=== PATIENT | female | born 1945 | race Caucasian/White ===

== ENCOUNTER 2019-06-12 16:17 | Inpatient (IN) | payer MEDICARE, OTHER ==
--- NOTE | 2019-06-12 16:47 | ED ---
Neurological HPI - HPI Summary HPI Summary: A 74 y/o female brought in by [facility] ambulance accompanied by mother and aide presents to [facility] with a chief complaint of weakness over the past two days. She says that she fell today when trying to get up off the toilet but did not get hurt. Per aide, she was lowered to the floor and did not really fall. She denies feeling dizzy or lightheaded. She also reports nausea, abdominal pain diarrhea and a cough. Pt denies any fever, vomiting, chills, erythema of eyes, sore throat, CP, SOB, dysuria, hematuria, edema, or rash She says that she has a "pump in her stomach" for baclofen. 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 She reports smoking. The patient says that she lives at her house, but requires aides. She denies a Hx of bloodclots. Per daughter, the patient has been having back pain and is taking Tylenol. She has reportedly had difficulty walking. 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 - History of Current Complaint Chief Complaint: EDWeakness Stated Complaint: GENERAL ILLNESS PER EMS Time Seen by Provider: 06/12/19 16:34 Hx Obtained From: Patient, Family/Hotel Sales Manager Onset/Duration: Sudden Onset, Started days ago, Still Present Timing: Constant Onset Severity: Mild Current Severity: Mild Pain Intensity: 0 Pain Scale Used: 0-10 Numeric Character: Weak Aggravating: Nothing Alleviating: Nothing Associated Signs and Symptoms: Positive: Diarrhea. Negative: Dizziness, Pain, Fever, Chest Pain - Allergy/Home Medications Allergies/Adverse Reactions: Allergies Allergy/AdvReac Type Severity Reaction Status Date / Time codeine Allergy Nausea Verified 05/15/19 07:38 Home Medications: Home Medications Aspirin EC TAB* [Ecotrin EC Low Dose 81 MG*] 81 mg PO DAILY 06/12/19 [History Confirmed 06/12/19] Cyanocobalamin (Vitamin B-12) [Vitamin B12] 2,500 mcg PO DAILY 06/12/19 [ History Confirmed 06/12/19] Docusate Sodium [Stool Softener] 100 mg PO BID PRN 06/12/19 [History Confirmed 06/12/19] FLUoxetine CAP* [PROzac CAP*] 20 mg PO QAM 06/12/19 [History Confirmed 06/12/19] FLUoxetine CAP* [PROzac CAP*] 40 mg PO QPM 06/12/19 [History Confirmed 06/12/19] Losartan TAB* [Cozaar TAB*] 100 mg PO DAILY 06/12/19 [History Confirmed 06/12/19 ] amLODIPine TAB* [Norvasc 5 mg TAB*] 10 mg PO QPM 06/12/19 [History Confirmed ] guaiFENesin ER TAB [Mucinex*] 600 mg PO BID 06/12/19 [History Confirmed 06/12/19 ] PMH/Surg Hx/FS Hx/Imm Hx Cardiovascular History: Denies: Hx Auto Implanted Cardiovert Defib Respiratory History: Reports: Hx Chronic Obstructive Pulmonary Disease (COPD) GI History: Denies: Hx Gastroesophageal Reflux Disease Musculoskeletal History: Reports: Hx Arthritis, Hx Back Problems Neurological History: Denies: Hx Transient Ischemic Attacks (TIA) Infectious Disease History: No Infectious Disease History: Denies: Traveled Outside the [place] in Last 30 Days - Family History Known Family History: Positive: Other - positive: father commited suicide - Social History Alcohol Use: None Substance Use Type: Reports: None Smoking Status (MU): Heavy Every Day Tobacco Smoker Type: Cigarettes Have You Smoked in the Last Year: Yes Review of Systems Positive: Fatigue. Negative: Fever, Chills Negative: Erythema Negative: Sore Throat Negative: Chest Pain Positive: Cough. Negative: Shortness Of Breath Positive: Abdominal Pain, Diarrhea, Nausea. Negative: Vomiting Negative: dysuria, hematuria Positive: Other - positive: back pain. Negative: Edema Neurological: Negative - dizziness, lightheadedness Positive: Weakness All Other Systems Reviewed And Are Negative: Yes Physical Exam - Summary Physical Exam Summary: Constitutional: Well-developed, Well-nourished, Alert. (-) Distressed Skin: Warm, Dry HENT: Normocephalic; Atraumatic Eyes: Conjunctiva normal Neck: Musculoskeletal ROM normal neck. (-) JVD, (-) Stridor, (-) Tracheal deviation Cardio: Rhythm regular, rate normal, Heart sounds normal; Intact distal pulses; The pedal pulses are 2+ and symmetric. Radial pulses are 2+ and symmetric. (-) Murmur Pulmonary/Chest wall: Effort normal. (-) Respiratory distress, (-) Wheezes, (-) Rales Abd: Soft. (+) Suprapubic Tenderness, (-) Distension, (-) Guarding, (-) Rebound Musculoskeletal: (-) Edema Lymph: (-) Cervical adenopathy Neuro: Alert, Oriented x3, Strength normal, Cranial nerves II-XII are grossly intact. (-) Dysmetria, (-) Nystagmus, (-) Ataxia by finger to nose testing, (-) Sensory deficit. Bilateral lower extremities are globally weak. Psych: Mood and affect Normal Triage Information Reviewed: Yes Vital Signs On Initial Exam: Initial Vitals Temp Pulse Resp BP Pulse Ox 99.5 F 72 22 162/83 93 06/12/19 16:22 06/12/19 16:22 06/12/19 16:22 06/12/19 16:22 06/12/19 16:22 Vital Signs Reviewed: Yes - [place] Coma Scale Best Eye Response: 4 - Spontaneous Best Motor Response: 6 - Obeys Commands Best Verbal Response: 5 - Oriented Coma Scale Total: 15 Diagnostics - Vital Signs Vital Signs Temp Pulse Resp BP Pulse Ox 06/12/19 16:22 99.5 F 72 22 162/83 93 - Laboratory Result Diagrams: 06/12/19 16:59 06/12/19 16:59 Lab Statement: Any lab studies that have been ordered have been reviewed, and results considered in the medical decision making process. - Radiology CXR Radiology Interpretation Completed By: Radiologist Summary of Radiographic Findings: Stigmata of obstructive lung disease corresponding with provided history. No acute pulmonary or cardiac process evident. ED physician has reviewed this imaging report. - CT Brain CT Interpretation Completed By: Radiologist Summary of CT Findings: 1. NO EVIDENCE FOR ACUTE INTRACRANIAL ABNORMALITY. 2. FINDINGS SUGGESTIVE OF MILD CHRONIC SMALL VESSEL ISCHEMIC CHANGES. ED physician has reviewed this imaging report. Course/Dx - Course Course Of Treatment: A 74 y/o female brought in by [facility] ambulance accompanied by mother and aide presents to [facility] with a chief complaint of weakness over the past two days. She says that she fell today when trying to get up off the toilet but did not get hurt. Per aide, she was lowered to the floor and did not really fall. She denies feeling dizzy or lightheaded. She also reports nausea diarrhea and a cough. Pt denies any fever, vomiting, chills, erythema of eyes, sore throat, CP, SOB, abdominal pain, dysuria, hematuria, edema, or rash She says that she has a "pump in her stomach" for baclofen. 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 She reports smoking. The patient says that she lives at her house, but requires aides. She denies a Hx of bloodclots. Per daughter, the patient has been having back pain and is taking Tylenol. She has reportedly had difficulty walking. 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 The physical exam revealed suprapubic tenderness and bilateral lower extremities are globally weak. Blood work, chemistries and urines obtained. Trace urine ketones, Urine blood 1+, Urine nitrate positive, trace Ur Leukocyte Esterase, Urine RC 1+, Ur Squamous Epith Cells Present, Urine Bacteria 1+. In the ED course the patient was given Sodium Chloride IV. Brain CT impression: 1. NO EVIDENCE FOR ACUTE INTRACRANIAL ABNORMALITY. 2. FINDINGS SUGGESTIVE OF MILD CHRONIC SMALL VESSEL ISCHEMIC CHANGES. CXR impression: Stigmata of obstructive lung disease corresponding with provided history. No acute pulmonary or cardiac process evident. Discussed case with Dr. Carrera, hospitalist, who accepted the patient for admission. The patient is agreeable with this plan. - Diagnoses Provider Diagnoses: UTI (urinary tract infection), Weakness - Physician Notifications Discussed Care Of Patient With: Curt Carrera Time Discussed With Above Provider: 19:25 Instructed by Provider To: Admit As Inpatient Discharge - Sign-Out/Discharge Documenting (check all that apply): Patient Departure - admit Patient Received Moderate/Deep Sedation with Procedure: No - Discharge Plan Condition: Fair Disposition: ADMITTED TO [facility] Referrals: Cinthia Winston MD [Primary Care Provider] - - Attestation Statements Document Initiated by Scribe: Yes Documenting Scribe: Delbert Quinonez Provider For Whom Scribe is Documenting (Include Credential): Song Chandler MD Scribe Attestation: Delbert Gauthier, scribed for Song Chandler MD on 06/12/19 at 1927. Status of Scribe Document: Ready
[2019-06-12 17:18] LABS: ABS Basophils 0.1 10^3/ul (0-0.2); ABS Eosinophils 0.1 10^3/ul (0-0.6); ABS Lymphocytes 1.1 10^3/ul (1.0-4.8); ABS Monocytes 0.9 10^3/ul (0-0.8); ABS Neutrophils 10.8 10^3/ul (1.5-7.7); Hematocrit 42 % (35-47); Lymphocyte % 8.3 %; Mean Corpuscular HGB Conc 33 g/dL (31-36); Mean Corpuscular Hemoglobin 30 pg (27-31); Mean Corpuscular Volume 89 fL (80-97); Mean Platelet Volume 7.4 fL (7.4-10.4); Platelet Count 482 10^3/uL (150-450); Red Blood Count 4.69 10^6 /uL (3.70-4.87); Red Cell Distribution Width 15 % (10-15)
[2019-06-12 17:28] LABS: Activated Partial Thrombo Time 32.1 seconds (26.0-38.0); INR 1.06 (0.82-1.09)
[2019-06-12 17:32] LABS: Troponin I 0.01 ng/mL (<0.04)
[2019-06-12 17:33] LABS: Albumin/Globulin Ratio 1.1 (1-3); Calcium 9.1 mg/dL (8.6-10.3); EGFR Non-African American 64.5 (>60); Globulin 3.5 g/dL (2-4); Potassium 4.4 mmol/L (3.5-5.0); Total Bilirubin 0.6 mg/dL (0.2-1.0); Total Protein 7.5 g/dL (6.4-8.9)
[2019-06-12 18:46] LABS: Urine Appearance Cloudy; Urine Bacteria 1+ (Absent); Urine Bilirubin Negative (Negative); Urine Blood 1+ (Negative); Urine Color Yellow; Urine Glucose Negative (Negative); Urine Ketones Trace (Negative); Urine Nitrite Positive (Negative); Urine Protein Negative (Negative); Urine Red Blood Cell Trace(0-2/hpf) (Absent); Urine Squamous Epithelial Cell Present (Absent); Urine Urobilinogen Negative (Negative); Urine White Blood Cell 1+(6-10/hpf) (Absent)
[2019-06-12] MEDS ORDERED: cefTRIAXone(*) 1 GM in NS 0.9% 50 ML* 50 ML IVPB ONE (19:22)
[2019-06-12] MEDS ORDERED: NS 0.9% 1000 ML** 1,000 ML IV ONE (19:22)
--- NOTE | 2019-06-12 19:39 | HP ---
History of Present Illness - History of Present Illness Reason for Visit: Got really weak today History of Present Illness: 74yoF with Primary lateral sclerosis, Arthritis, Chronic muscle spasm with baclofen pump, she is wheelchair bound and juan jose lift but can do some combing with her hands. 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 Today she noticed she was more weaker than normal. No fever. Unsure of any urinary problem although she does use diaper. She does have chronic back spasm but today also noticed lower abdominal pain. Allergies Allergy/AdvReac Type Severity Reaction Status Date / Time codeine Allergy Nausea Verified 05/15/19 07:38 Home Medications Medication Instructions Recorded Confirmed Type Albuterol HFA INHALER* [Ventolin 2 puff INH Q6H PRN 05/15/19 06/12/19 History HFA Inhaler*] Atorvastatin* [Lipitor*] 20 mg PO QPM 05/15/19 06/12/19 History Mirabegron (NF) [Myrbetriq (NF)] 50 mg PO DAILY 05/15/19 06/12/19 History Primidone TAB(*) [Mysoline TAB(*)] 250 mg PO BID 05/15/19 06/12/19 History Salmeterol DISKUS (NF) [Serevent 1 puff INH BID 05/15/19 06/12/19 History Diskus (NF)] Tolterodine LA (NF) [Detrol LA 4 mg PO DAILY 05/15/19 06/12/19 History (NF)] Umeclidinium [place] [Incruse 62.5 mcg IH DAILY 05/15/19 06/12/19 History Ellipta] Aspirin EC TAB* [Ecotrin EC Low 81 mg PO DAILY 06/12/19 06/12/19 History Dose 81 MG*] Cyanocobalamin (Vitamin B-12) 2,500 mcg PO DAILY 06/12/19 06/12/19 History [Vitamin B12] Docusate Sodium [Stool Softener] 100 mg PO BID PRN 06/12/19 06/12/19 History FLUoxetine CAP* [PROzac CAP*] 20 mg PO QAM 06/12/19 06/12/19 History FLUoxetine CAP* [PROzac CAP*] 40 mg PO QPM 06/12/19 06/12/19 History Losartan TAB* [Cozaar TAB*] 100 mg PO DAILY 06/12/19 06/12/19 History amLODIPine TAB* [Norvasc 5 mg TAB*] 10 mg PO QPM 06/12/19 06/12/19 History guaiFENesin ER TAB [Mucinex*] 600 mg PO BID 06/12/19 06/12/19 History - Past Medical History Cardiac: HTN, Hyperlipidemia Pulmonary: COPD 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 Chronic back spasm s/p baclophen pump. Psych: Anxiety, Depression Musculoskeletal: Other - Hx Arthritis, Hx Back Problems Renal/: Other - Left Kidney Ca s/p resection. - Past Surgical History Past Surgical History: Other - Left nephrectomy, Colon Ca surgery, Baclofen pump insertion, Right side breast ca resection, lumbar discectomy, multiple skin cancer removal, History of radiation treatment for breast and skin cancers. Never really got chemotherapy. Bilateral Cataract - Past Social History Smoke: 1 pack per day - 60 Years. Occupation: Used to work at [employer] Alcohol: None Drugs: None Lives: Alone - 24 Aide service Review of Systems - Measurements Intake and Output: Intake and Output Last 24 Hours 06/10/19 06/11/19 06/12/19 06/13/19 06:59 06:59 06:59 06:59 Weight 148 lb - Review of Systems Constitutional Symptoms: Positive: Weakness, Other - Loss of appetitie Negative: Weight Gain, Weight Loss, Fever Dermatology: Negative: Rash Eyes: Negative: Change in Vision Thyroid: Positive: Normal Pulmonary: Negative: Cough, Sputum Cardiology: Negative: Chest Pain, Shortness of Breath, Palpitations, Edema Gastroenterology: Positive: Abdominal Pain - Suprapubic area Neurology: Positive: Other - Baseline functional quadraplegic Objective Active Medications: Sodium Chloride (Ns 0.9% 1000 Ml) 1,000 mls @ 1,000 mls/hr IV .PER RATE ONE Stop: 06/12/19 20:21 Last Admin: 06/12/19 19:31 Dose: 1,000 mls/hr Ceftriaxone Sodium 1 gm/ (Sodium Chloride) 50 mls @ 100 mls/hr IVPB ED ONCE ONE Stop: 06/12/19 19:51 Last Admin: 06/12/19 19:32 Dose: 100 mls/hr Vital Signs - 8 hr 06/12/19 06/12/19 06/12/19 16:22 16:36 16:49 Temperature 99.5 F Pulse Rate 72 74 72 Respiratory 22 22 23 Rate Blood Pressure 162/83 159/83 173/89 (mmHg) O2 Sat by Pulse 93 92 91 Oximetry 06/12/19 06/12/19 06/12/19 17:19 17:31 17:49 Temperature Pulse Rate 68 67 68 Respiratory 23 22 22 Rate Blood Pressure 141/79 143/78 (mmHg) O2 Sat by Pulse 93 94 93 Oximetry 06/12/19 06/12/19 06/12/19 18:01 18:19 18:49 Temperature Pulse Rate 68 71 71 Respiratory 22 25 22 Rate Blood Pressure 141/74 152/69 (mmHg) O2 Sat by Pulse 94 94 93 Oximetry 06/12/19 19:00 Temperature Pulse Rate 71 Respiratory 21 Rate Blood Pressure (mmHg) O2 Sat by Pulse 94 Oximetry Oxygen Devices in Use Now: None Eyes: No Scleral Icterus, PERRLA Ears/Nose/Mouth/Throat: NL Teeth, Lips, Gums, Clear Oropharnyx, Mucous Membranes Moist Respiratory: - - Diffuse expiratory wheezing Cardiovascular: NL Sounds; No Murmurs; No JVD, RRR, No Edema Abdominal: NL Sounds; No Tenderness; No Distention Extremities: No Edema Skin: No Rash or Ulcers Neurological: Alert and Oriented x 3, - - Functional quadraplegia Nutrition: - - Needs assistance with food Result Diagrams: 06/12/19 16:59 06/12/19 16:59 Diagnostic Imaging: CHEST AP IMPRESSION: Stigmata of obstructive lung disease corresponding with provided history. No acute pulmonary or cardiac process evident. CT BRAIN WO IMPRESSION: 1. NO EVIDENCE FOR ACUTE INTRACRANIAL ABNORMALITY. 2. FINDINGS SUGGESTIVE OF MILD CHRONIC SMALL VESSEL ISCHEMIC CHANGES. 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 - Patient Problems (1) Sepsis secondary to UTI Current Visit: Yes Status: Acute Code(s): A41.9 - SEPSIS, UNSPECIFIED ORGANISM; N39.0 - URINARY TRACT INFECTION, SITE NOT SPECIFIED SNOMED Code(s): 735988779 Comment: Start ceftriaxone follow up urine cultures and titrate anti- biotics. (2) Hyponatremia Current Visit: Yes Status: Acute Code(s): E87.1 - HYPO-OSMOLALITY AND HYPONATREMIA SNOMED Code(s): 93592619 Comment: Add on serum osmolality to the ED drawn labs. Start IVF. Repeat labs in AM. (3) COPD (chronic obstructive pulmonary disease) Current Visit: Yes Status: Acute Code(s): J44.9 - CHRONIC OBSTRUCTIVE PULMONARY DISEASE, UNSPECIFIED SNOMED Code(s): 81007469 Comment: Restart home meds. Does have some wheezes on exam but patient denies any shortness of breath. (4) Functional quadriplegia Current Visit: Yes Status: Chronic Code(s): R53.2 - FUNCTIONAL QUADRIPLEGIA SNOMED Code(s): 859681562016126 (5) Primary lateral sclerosis Current Visit: Yes Status: Chronic Code(s): G12.23 - PRIMARY LATERAL SCLEROSIS SNOMED Code(s): 12087138 (6) Chronic back pain Current Visit: Yes Status: Chronic Code(s): M54.9 - DORSALGIA, UNSPECIFIED; G89.29 - OTHER CHRONIC PAIN SNOMED Code(s): 829102201 Comment: Continue baclofen via pump. (7) Depression Current Visit: Yes Status: Chronic Code(s): F32.9 - MAJOR DEPRESSIVE DISORDER, SINGLE EPISODE, UNSPECIFIED SNOMED Code(s): 81744076 (8) Single kidney Current Visit: Yes Status: Chronic Code(s): Z90.5 - ACQUIRED ABSENCE OF KIDNEY SNOMED Code(s): 765869065 Comment: Avoid nephrotoxic medications. (9) DVT prophylaxis Current Visit: Yes Status: Acute Code(s): Z29.9 - ENCOUNTER FOR PROPHYLACTIC MEASURES, UNSPECIFIED SNOMED Code(s): 480030051 Comment: SC Heparin
[2019-06-12] MEDS ORDERED: Albuterol 2.5 MG/3 ML NEB.SOL* (0.083%) INH PRN (20:26)
[2019-06-12] MEDS ORDERED: PTO: Albuterol HFA INHALER* 8 gm MDI INH PRN (20:30)
[2019-06-12] MEDS ORDERED: Docusate CAP* 100 MG PO PRN (20:30)
[2019-06-12] MEDS: NS 0.9% 1000 ML** 1,000 ML IV SCH (23:10)
[2019-06-12] MEDS: FLUoxetine CAP* 20 MG PO SCH (23:11)
[2019-06-12] MEDS: amLODIPine TAB* 5 MG PO SCH (23:11)
[2019-06-12] MEDS: Atorvastatin* 20 MG TAB PO SCH (23:11)
[2019-06-12] MEDS: guaiFENesin ER TAB 600 MG PO SCH (23:12)
[2019-06-12] MEDS: Acetaminophen TAB* 325 MG PO PRN (23:14)
[2019-06-12] MEDS: CYANOCOBALAMIN 2500 MCG PO SCH (23:15)
[2019-06-12] MEDS: Heparin VIAL(*) 5000 UNITS/ML VIAL (FIVE THOUSAND) SUBCUT SCH (23:15)
[2019-06-12] MEDS: Salmeterol DISKUS (NF) INH SCH (23:18)
[2019-06-12] MEDS: Primidone TAB(*) 250 MG PO SCH (23:23)
[2019-06-13 06:56] LABS: ABS Eosinophils 0.2 10^3/ul (0-0.6); ABS Lymphocytes 1.3 10^3/ul (1.0-4.8); ABS Monocytes 0.8 10^3/ul (0-0.8); Eosinophil % 2.6 %; Hematocrit 39 % (35-47); Hemoglobin 13.2 g/dL (12.0-16.0); Mean Corpuscular HGB Conc 34 g/dL (31-36); Mean Corpuscular Hemoglobin 30 pg (27-31); Mean Corpuscular Volume 90 fL (80-97); Mean Platelet Volume 7.3 fL (7.4-10.4); Platelet Count 421 10^3/uL (150-450); Red Blood Count 4.35 10^6 /uL (3.70-4.87); Red Cell Distribution Width 16 % (10-15); White Blood Count 9.4 10^3/uL (3.5-10.8)
[2019-06-13] MEDS: PTO: Umeclidinium 62.5 MDI(NF) MDI INH SCH ×2 (07:15→11:15)
[2019-06-13 07:18] LABS: BUN/Creatinine Ratio 14.6 (8-20); Calcium 8.5 mg/dL (8.6-10.3); EGFR African American 82.5 (>60); EGFR Non-African American 68.1 (>60); Potassium 3.8 mmol/L (3.5-5.0)
[2019-06-13] MEDS: FLUoxetine CAP* 20 MG PO SCH ×2 (08:40→17:52)
[2019-06-13] MEDS: guaiFENesin ER TAB 600 MG PO SCH ×2 (08:40→22:03)
[2019-06-13] MEDS: Aspirin EC TAB* 81 MG TAB.EC PO SCH (08:40)
[2019-06-13] MEDS: Losartan TAB* 25 MG PO SCH (08:40)
[2019-06-13] MEDS: PTO:Mirabegron (NF) 50 MG TAB PO SCH (08:41)
[2019-06-13] MEDS: CYANOCOBALAMIN 2500 MCG PO SCH (08:41)
[2019-06-13] MEDS: TOLTERODINE 4 MG PO SCH (08:41)
[2019-06-13] MEDS: Primidone TAB(*) 250 MG PO SCH ×2 (08:51→22:03)
[2019-06-13] MEDS: Heparin VIAL(*) 5000 UNITS/ML VIAL (FIVE THOUSAND) SUBCUT SCH ×2 (08:51→22:12)
[2019-06-13] MEDS: Salmeterol DISKUS (NF) INH SCH (11:06)
[2019-06-13] MEDS: SALMETEROL INH SCH ×2 (11:12→22:24)
[2019-06-13] MEDS: Nystatin TOP POWDER* 15 GM BTL TOPICAL SCH ×3 (11:18→22:12)
[2019-06-13] MEDS: Acetaminophen TAB* 325 MG PO PRN (12:34)
[2019-06-13] MEDS: NS 0.9% 1000 ML** 1,000 ML IV SCH (12:36)
--- NOTE | 2019-06-13 16:59 | PN ---
Subjective Date of Service: 06/13/19 Interval History: Resting in chair on assessment with daughter and supervisor home economics at bedside. Daughter reports patient was incontinent of urine last week and did not even have the urge to void which is new for her. Then on when home aides were transferring patient she sustained a fall as her "legs gave out" which is also a change from baseline. Finally, daughter reports that patient was incontinent of urine last evening. Patient reports that this morning she was able to transfer from bed to chair at her baseline, therefore, she feels improved compared to last evening. Patient reports occasional back pain which is baseline for her and has worsened since medication in her pump was changed. She denies fever, chills, cp, shortness of breath, burning with urination. Objective Active Medications: Acetaminophen (Tylenol Tab*) 650 mg PO Q4H PRN PRN Reason: FEVER/PAIN Last Admin: 06/13/19 12:34 Dose: 650 mg Albuterol (Ventolin 2.5 Mg/3 Ml Neb.Meenakshi*) 2.5 mg INH [id number] AWAKE PRN PRN Reason: sob/wheezing Albuterol (Ventolin Hfa Inhaler*) 2 puff INH Q6H PRN PRN Reason: SHORTNESS OF BREATH Last Admin: 06/13/19 11:16 Dose: 2 puff Amlodipine Besylate (Norvasc Tab*) 10 mg PO QPM [facility] Last Admin: 06/12/19 23:11 Dose: 10 mg Aspirin (Aspirin Ec Tab*) 81 mg PO DAILY [facility] Last Admin: 06/13/19 08:40 Dose: 81 mg Atorvastatin Calcium (Lipitor*) 20 mg PO QPM [facility] Last Admin: 06/12/19 23:11 Dose: 20 mg Docusate Sodium (Colace Cap*) 100 mg PO BID PRN PRN Reason: CONSTIPATION Fluoxetine HCl (Prozac Cap*) 20 mg PO QAM [facility] Last Admin: 06/13/19 08:40 Dose: 20 mg Fluoxetine HCl (Prozac Cap*) 40 mg PO QPM [facility] Last Admin: 06/12/19 23:11 Dose: 40 mg Guaifenesin (Mucinex*) 600 mg PO BID [facility] Last Admin: 06/13/19 08:40 Dose: 600 mg Heparin Sodium (Porcine) (Heparin Vial(*)) 5,000 units SUBCUT Q12HR [facility] Last Admin: 06/13/19 08:51 Dose: 5,000 units Sodium Chloride (Ns 0.9% 1000 Ml) 1,000 mls @ 75 mls/hr IV PER RATE [facility] Last Admin: 06/13/19 12:36 Dose: 75 mls/hr Ceftriaxone Sodium 1 gm/ (Sodium Chloride) 50 mls @ 100 mls/hr IVPB Q24H [facility] Losartan Potassium (Cozaar Tab*) 100 mg PO DAILY [facility] Last Admin: 06/13/19 08:40 Dose: 100 mg Mirabegron (Myrbetriq (Nf)) 50 mg PO DAILY [facility] Last Admin: 06/13/19 08:41 Dose: 50 mg Pto: (Cyanocobalamin (Vitamin B-12) 2, 500 Mcg) 2,500 mcg PO DAILY [facility] Last Admin: 06/13/19 08:41 Dose: 2,500 mcg Nystatin (Nystatin Top Powder*) 1 applic TOPICAL TID [facility] Last Admin: 06/13/19 12:40 Dose: Not Given Primidone (Mysoline Tab(*)) 250 mg PO BID [facility] Last Admin: 06/13/19 08:51 Dose: 250 mg Salmeterol Xinafoate (Serevent Diskus (Nf)) 1 puff INH BID [facility]; Protocol Last Admin: 06/13/19 11:12 Dose: 1 puff Tolterodine Tartrate (Detrol La (Nf)) 4 mg PO DAILY [facility]; Protocol Last Admin: 06/13/19 08:41 Dose: 4 mg Umeclidinium [place] (Incruse Ellipta Mdi (Nf)) 1 inh INH DAILY [facility] Last Admin: 06/13/19 11:15 Dose: 1 inh Vital Signs - 8 hr 06/13/19 12:00 Temperature 98.2 F Pulse Rate 68 Respiratory 24 Rate Blood Pressure 135/57 (mmHg) O2 Sat by Pulse 94 Oximetry Oxygen Devices in Use Now: None Appearance: Comfortable, NAD Eyes: No Scleral Icterus, PERRLA Ears/Nose/Mouth/Throat: Clear Oropharnyx, Mucous Membranes Moist Neck: NL Appearance and Movements; NL JVP Respiratory: Symmetrical Chest Expansion and Respiratory Effort, Clear to Auscultation Cardiovascular: NL Sounds; No Murmurs; No JVD, RRR, No Edema Abdominal: NL Sounds; No Tenderness; No Distention, - - No CVA tenderness Lymphatic: No Cervical Adenopathy Extremities: No Clubbing, Cyanosis Skin: No Rash or Ulcers Neurological: Alert and Oriented x 3, NL Muscle Strength and Tone Nutrition: Taking PO's Result Diagrams: 06/13/19 06:36 06/13/19 06:36 Additional Lab and Data: Laboratory Results - last 24 hr 06/12/19 06/12/19 06/12/19 16:59 16:59 16:59 WBC 13.0 H RBC 4.69 Hgb 14.0 Hct 42 MCV 89 MCH 30 MCHC 33 RDW 15 Plt Count 482 H MPV 7.4 Neut % (Auto) 83.5 Lymph % (Auto) 8.3 [place] % (Auto) 6.6 Eos % (Auto) 1.0 Baso % (Auto) 0.6 Absolute Neuts (auto) 10.8 H Absolute Lymphs (auto) 1.1 Absolute Monos (auto) 0.9 H Absolute Eos (auto) 0.1 Absolute Basos (auto) 0.1 Absolute Nucleated RBC 0.0 Nucleated RBC % 0.0 INR (Anticoag Therapy) 1.06 APTT 32.1 Sodium 130 L Potassium 4.4 Chloride 100 L Carbon Dioxide 21 L Anion Gap 9 BUN 12 Creatinine 0.86 Est GFR ( Amer) 78.0 Est GFR (Non-Af Amer) 64.5 BUN/Creatinine Ratio 14.0 Glucose 104 H Serum Osmolality Lactic Acid Calcium 9.1 Total Bilirubin 0.60 AST 19 ALT 18 Alkaline Phosphatase 67 Troponin I 0.01 Total Protein 7.5 Albumin 4.0 Globulin 3.5 Albumin/Globulin Ratio 1.1 Urine Color Urine Appearance Urine pH Ur Specific [place] Urine Protein Urine Ketones Urine Blood Urine Nitrate Urine Bilirubin Urine Urobilinogen Ur Leukocyte Esterase Urine WBC (Auto) Urine RBC (Auto) Ur Squamous Epith Cells Urine Bacteria Urine Glucose 06/12/19 06/12/19 06/12/19 16:59 16:59 18:30 WBC RBC Hgb Hct MCV MCH MCHC RDW Plt Count MPV Neut % (Auto) Lymph % (Auto) [place] % (Auto) Eos % (Auto) Baso % (Auto) Absolute Neuts (auto) Absolute Lymphs (auto) Absolute Monos (auto) Absolute Eos (auto) Absolute Basos (auto) Absolute Nucleated RBC Nucleated RBC % INR (Anticoag Therapy) APTT Sodium Potassium Chloride Carbon Dioxide Anion Gap BUN Creatinine Est GFR ( Amer) Est GFR (Non-Af Amer) BUN/Creatinine Ratio Glucose Serum Osmolality 279 Lactic Acid 0.7 Calcium Total Bilirubin AST ALT Alkaline Phosphatase Troponin I Total Protein Albumin Globulin Albumin/Globulin Ratio Urine Color Yellow Urine Appearance Cloudy Urine pH 6.0 Ur Specific [place] 1.010 Urine Protein Negative Urine Ketones Trace A Urine Blood 1+ A Urine Nitrate Positive A Urine Bilirubin Negative Urine Urobilinogen Negative Ur Leukocyte Esterase Trace A Urine WBC (Auto) 1+(6-10/hpf) A Urine RBC (Auto) Trace(0-2/hpf) Ur Squamous Epith Cells Present A Urine Bacteria 1+ A Urine Glucose Negative 06/12/19 06/13/19 06/13/19 20:38 06:36 06:36 WBC 9.4 RBC 4.35 Hgb 13.2 Hct 39 MCV 90 MCH 30 MCHC 34 RDW 16 H Plt Count 421 MPV 7.3 L Neut % (Auto) 74.5 Lymph % (Auto) 14.0 [place] % (Auto) 8.5 Eos % (Auto) 2.6 Baso % (Auto) 0.4 Absolute Neuts (auto) 7.0 Absolute Lymphs (auto) 1.3 Absolute Monos (auto) 0.8 Absolute Eos (auto) 0.2 Absolute Basos (auto) 0.0 Absolute Nucleated RBC 0.0 Nucleated RBC % 0.0 INR (Anticoag Therapy) APTT Sodium 137 Potassium 3.8 Chloride 107 Carbon Dioxide 21 L Anion Gap 9 BUN 12 Creatinine 0.82 Est GFR ( Amer) 82.5 Est GFR (Non-Af Amer) 68.1 BUN/Creatinine Ratio 14.6 Glucose 96 Serum Osmolality Lactic Acid 0.5 Calcium 8.5 L Total Bilirubin AST ALT Alkaline Phosphatase Troponin I Total Protein Albumin Globulin Albumin/Globulin Ratio Urine Color Urine Appearance Urine pH Ur Specific [place] Urine Protein Urine Ketones Urine Blood Urine Nitrate Urine Bilirubin Urine Urobilinogen Ur Leukocyte Esterase Urine WBC (Auto) Urine RBC (Auto) Ur Squamous Epith Cells Urine Bacteria Urine Glucose Microbiology and Other Data: Microbiology 06/12/19 18:30 Urine Urine Culture - Preliminary Escherichia Coli Diagnostic Imaging: CHEST AP IMPRESSION: Stigmata of obstructive lung disease corresponding with provided history. No acute pulmonary or cardiac process evident. CT BRAIN WO IMPRESSION: 1. NO EVIDENCE FOR ACUTE INTRACRANIAL ABNORMALITY. 2. FINDINGS SUGGESTIVE OF MILD CHRONIC SMALL VESSEL ISCHEMIC CHANGES. 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 - Patient Problems (1) Sepsis secondary to UTI Comment: - Resolved. - Met sepsis on admission with elevated wbc, resp rate > 20, and sourse of urine. - Urine culture grew Ecoli - Cont Ceftriaxone (2) Primary lateral sclerosis Comment: - Due to recent fall and recent incontinence, I have requested records from patient's primary neurologist in [place]. - Depending of results of recent MRIs will consider cervical spine MRI - Falls and incontinence could be secondary to UTI also and since patient is improving with abx it is reassuring. - Added Vitamin B12 (3) COPD (chronic obstructive pulmonary disease) Comment: - Cont home meds. - No signs/symptoms of exacerbation (4) Hyponatremia Comment: - Resolved (5) Chronic back pain Comment: - Sees Dr Harris - Family reports pain in back has increased since medication in pump was changed about 2 to 3 weeks ago. - Continue baclofen via pump. (6) Depression Comment: - Continue Prozac (7) Single kidney Comment: - Will order ultrasound of kidney due to back pain, UTI, and incontinence - Avoid nephrotoxic medications. (8) Hypertension Comment: - Cont home medications (9) Hyperlipidemia Comment: - Cont statin (10) DVT prophylaxis Comment: - [place] Heparin Status and Disposition: May need DAVE Attending: Randall English
[2019-06-13] MEDS: amLODIPine TAB* 5 MG PO SCH (17:52)
[2019-06-13] MEDS: Atorvastatin* 20 MG TAB PO SCH (17:52)
[2019-06-13] MEDS ORDERED: cefTRIAXone(*) 1 GM in NS 0.9% 50 ML* 50 ML IVPB SCH (20:00)
[2019-06-14 07:22] LABS: ABS Eosinophils 0.3 10^3/ul (0-0.6); ABS Lymphocytes 1.3 10^3/ul (1.0-4.8); ABS Monocytes 0.5 10^3/ul (0-0.8); ABS Neutrophils 6.4 10^3/ul (1.5-7.7); Eosinophil % 3.8 %; Hematocrit 40 % (35-47); Hemoglobin 13.8 g/dL (12.0-16.0); Lymphocyte % 14.7 %; Mean Corpuscular HGB Conc 35 g/dL (31-36); Mean Corpuscular Hemoglobin 31 pg (27-31); Mean Corpuscular Volume 90 fL (80-97); Mean Platelet Volume 7.3 fL (7.4-10.4); Platelet Count 432 10^3/uL (150-450); Red Blood Count 4.44 10^6 /uL (3.70-4.87); Red Cell Distribution Width 15 % (10-15); White Blood Count 8.5 10^3/uL (3.5-10.8)
[2019-06-14 07:38] LABS: Calcium 8.5 mg/dL (8.6-10.3); EGFR African American 94.3 (>60); EGFR Non-African American 77.9 (>60); Potassium 4.3 mmol/L (3.5-5.0)
[2019-06-14] MEDS: PTO: Umeclidinium 62.5 MDI(NF) MDI INH SCH (07:50)
[2019-06-14] MEDS: guaiFENesin ER TAB 600 MG PO SCH (09:40)
[2019-06-14] MEDS: Aspirin EC TAB* 81 MG TAB.EC PO SCH (09:40)
[2019-06-14] MEDS: FLUoxetine CAP* 20 MG PO SCH (09:40)
[2019-06-14] MEDS: Losartan TAB* 25 MG PO SCH (09:40)
[2019-06-14] MEDS: Primidone TAB(*) 250 MG PO SCH (09:40)
[2019-06-14] MEDS: PTO:Mirabegron (NF) 50 MG TAB PO SCH (09:41)
[2019-06-14] MEDS: CYANOCOBALAMIN 2500 MCG PO SCH (09:41)
[2019-06-14] MEDS: TOLTERODINE 4 MG PO SCH (09:42)
[2019-06-14] MEDS: SALMETEROL INH SCH (09:46)
[2019-06-14] MEDS: Heparin VIAL(*) 5000 UNITS/ML VIAL (FIVE THOUSAND) SUBCUT SCH (09:47)
[2019-06-14] MEDS: Nystatin TOP POWDER* 15 GM BTL TOPICAL SCH (09:53)
--- NOTE | 2019-06-14 10:37 | PN ---
Subjective Date of Service: 06/14/19 Interval History: Ms. Augustin reports that she is feeling much better. She feels that she is stronger. She was able to stand and pivot with assist yesterday and today. She denies chest pain, SOB, nausea, or abdominal pain. Objective Active Medications: Acetaminophen (Tylenol Tab*) 650 mg PO Q4H PRN Albuterol (Ventolin 2.5 Mg/3 Ml Neb.Meenakshi*) 2.5 mg INH [id number] AWAKE PRN Albuterol (Ventolin Hfa Inhaler*) 2 puff INH Q6H PRN Amlodipine Besylate (Norvasc Tab*) 10 mg PO QPM [facility] Aspirin (Aspirin Ec Tab*) 81 mg PO DAILY [facility] Atorvastatin Calcium (Lipitor*) 20 mg PO QPM [facility] Docusate Sodium (Colace Cap*) 100 mg PO BID PRN Fluoxetine HCl (Prozac Cap*) 20 mg PO QAM [facility] Fluoxetine HCl (Prozac Cap*) 40 mg PO QPM [facility] Guaifenesin (Mucinex*) 600 mg PO BID [facility] Heparin Sodium (Porcine) (Heparin Vial(*)) 5,000 units SUBCUT Q12HR [facility] Ceftriaxone Sodium 1 gm/ (Sodium Chloride) 50 mls @ 100 mls/hr IVPB Q24H [facility] Losartan Potassium (Cozaar Tab*) 100 mg PO DAILY [facility] Mirabegron (Myrbetriq (Nf)) 50 mg PO DAILY [facility] Pto: (Cyanocobalamin (Vitamin B-12) 2, 500 Mcg) 2,500 mcg PO DAILY [facility] Nystatin (Nystatin Top Powder*) 1 applic TOPICAL TID [facility] Primidone (Mysoline Tab(*)) 250 mg PO BID [facility] Salmeterol Xinafoate (Serevent Diskus (Nf)) 1 puff INH BID [facility]; Protocol Tolterodine Tartrate (Detrol La (Nf)) 4 mg PO DAILY [facility]; Protocol Umeclidinium [place] (Incruse Ellipta Mdi (Nf)) 1 inh INH DAILY [facility] Vital Signs: Temp Pulse Resp BP Pulse Ox 97.7 F 64 18 152/80 90 06/14/19 03:18 06/14/19 07:50 06/14/19 07:50 06/14/19 03:18 06/14/19 07:50 Oxygen Devices in Use Now: None Appearance: Female lying in bed in NAD Eyes: No Scleral Icterus Ears/Nose/Mouth/Throat: Mucous Membranes Moist Neck: Trachea Midline Respiratory: Symmetrical Chest Expansion and Respiratory Effort, Clear to Auscultation Cardiovascular: NL Sounds; No Murmurs; No JVD, No Edema Abdominal: NL Sounds; No Tenderness; No Distention Extremities: No Edema Skin: No Rash or Ulcers Neurological: Alert and Oriented x 3 Nutrition: Taking PO's Result Diagrams: 06/14/19 07:05 06/14/19 07:05 Additional Lab and Data: . Microbiology and Other Data: . Diagnostic Imaging: . Assess/Plan/Problems-Billing Assessment: Case is a 74yo Female with primary lateral sclerosis with spastic paralysis , functional quadriplegia here due to progressive weakness more so than her baseline noted to have sepsis with UTI. - Patient Problems (1) Sepsis secondary to UTI Comment: - Resolved. - Met sepsis on admission with elevated wbc, resp rate > 20, and source of urine. - Urine culture grew Ecoli, pansensitive - Switch to bactrim x 5 days (2) Primary lateral sclerosis Comment: - Recommend that she follows up with local neurologist, scheduled per patient - Patient reports incontinence has been a chronic issue (3) COPD (chronic obstructive pulmonary disease) Comment: - Cont home meds. - No signs/symptoms of exacerbation (4) Hyperlipidemia Comment: - Cont statin (5) Hypertension Comment: - SBP 140s - Cont amlodipine and losartan (6) Hyponatremia Comment: - Resolved (7) Chronic back pain Comment: - Sees Dr Harris - Family reports pain in back has increased since medication in pump was changed about 2 to 3 weeks ago. - Continue baclofen via pump. (8) Depression Comment: - Continue Prozac (9) Single kidney Comment: - Kidney US shows normal R kidney, left kidney surgically absent - Avoid nephrotoxic medications. (10) DVT prophylaxis Comment: - [place] Heparin Status and Disposition: Discharge to home.
[2019-06-14] MEDS: Acetaminophen TAB* 325 MG PO PRN (13:47)
[2019-06-14 16:00] VITALS: BP 138/53
--- NOTE | 2019-06-14 19:13 | DS ---
CC: Dr. Winston * [facility] MEDICINE DISCHARGE SUMMARY: DATE OF ADMISSION: 06/12/19 DATE OF DISCHARGE: 06/14/19 PRIMARY CARE PHYSICIAN: Dr. Winston ATTENDING PHYSICIAN: Dr. English * (dictation provided by Urvashi Spencer NP.) PRIMARY DIAGNOSES: 1. Sepsis with elevated white blood cell count and mild tachypnea. 2. Urinary tract infection with weakness. SECONDARY DIAGNOSES: 1. History of primary lateral sclerosis. 2. Arthritis. 3. Chronic muscle spasm with baclofen pump. 4. Wheelchair bound. MEDICATIONS AT THE TIME OF DISCHARGE: 1. Albuterol inhaler 2 puffs inhaled q. 6 hours p.r.n. 2. Serevent Diskus 1 puff inhaled b.i.d. 3. Incruse Ellipta to 62.5 mcg inhaled daily. 4. Cyanocobalamin 2500 mcg p.o. daily. 5. Docusate 100 mg p.o. b.i.d. p.r.n. 6. Atorvastatin 20 mg p.o. q. p.m. 7. Myrbetriq 50 mg p.o. daily. 8. Mucinex 600 mg p.o. b.i.d. 9. Prozac 40 mg in the p.m. and 20 mg in the a.m. 10. Primidone 250 mg p.o. b.i.d. 11. Aspirin 81 mg p.o. daily. 12. Detrol LA 4 mg p.o. daily. 13. Losartan 100 mg p.o. daily. 14. Amlodipine 10 mg p.o. q. p.m. 15. Augmentin 875 mg p.o. b.i.d. HOSPITAL COURSE: Case is a 74-year-old female with past medical history of primary lateral sclerosis who presented to the hospital 06/12/19 with concern for weakness. Please see dictated H and P from Dr. Curt Carrera for complete details. In brief, the patient lives at home with supportive 24-hour care. The aide noticed that she suddenly became weaker than usual yesterday. She has a history of chronic urinary incontinence with primary lateral sclerosis. In the emergency room, she had a chest X-ray that showed: "Stigmata of obstructive lung disease corresponding with provided history. No acute cardiac or pulmonary process evident." She had CT brain showed: "No evidence for acute intracranial abnormalities, findings suggestive of mild small vessel ischemic changes." She had labs, which showed a mild elevation in the white blood cell count to 13.0. No anemia. Essentially normal electrolytes except for a slight drop in her sodium to 130. Her BUN and creatinine were normal. Lactic acid was normal. Urine showed concern for infection with 1+ bacteria and trace leuk esterase and positive nitrites. It was suspected that Ms. Augustin's symptoms were secondary to potential urinary tract infection. In fact, urine culture did grow E. coli that was pansensitive. While in here in the hospital she has been treated with ceftriaxone x2 days. After treatment of her UTI, Ms. Augustin is doing much better. She is now back to her baseline. In terms of mobility, she is able to stand and pivot at the beside and is confirmed to be at her baseline per her aide who is here at the hospital with her today. The patient's mild sepsis has resolved. Ms. Augustin is just medically stable for discharge to home today. Follow up with her primary care physician Dr. Winston. DISPOSITION: To home. DIET: Low salt. ACTIVITIES: As tolerated. FOLLOWUP PLAN: Please follow up with Dr. Winston. TIME SPENT: Approximately 60 minutes was spent on the discharge of this patient ; more than half that time was spent with her and her aide at the bedside reviewing the events leading up to this hospitalization, performing the physical examination, and reviewing my plan of care. URVASHI SPENCER NP [id number]/[facility] #: [id number] [place]
== END 2019-06-14 15:10 | disposition home or self-care (01) | DRG 871 ==
LOC: ED 16:17 → MED 20:26
PROVIDERS: ADMIT Internal Medicine; ATTEND Internal Medicine
DX: A41.9 Sepsis, unspecified organism (principal); R53.2 Functional quadriplegia; N17.9 Acute kidney failure, unspecified; G12.23 Primary lateral sclerosis; E87.1 Hypo-osmolality and hyponatremia; M19.90 Unspecified osteoarthritis, unspecified site; M62.838 Other muscle spasm; J44.9 Chronic obstructive pulmonary disease, unspecified; F17.210 Nicotine dependence, cigarettes, uncomplicated; R40.2362 Coma scale, best motor response, obeys commands, at arrival to emergency department; R40.2142 Coma scale, eyes open, spontaneous, at arrival to emergency department; R40.2252 Coma scale, best verbal response, oriented, at arrival to emergency department; E78.5 Hyperlipidemia, unspecified; I10 Essential (primary) hypertension; G25.0 Essential tremor; G89.29 Other chronic pain; M54.9 Dorsalgia, unspecified; R32 Unspecified urinary incontinence; B96.20 Unspecified Escherichia coli [E. coli] as the cause of diseases classified elsewhere; F41.9 Anxiety disorder, unspecified; F32.9 Major depressive disorder, single episode, unspecified; Z99.3 Dependence on wheelchair; Z88.6 Allergy status to analgesic agent; Z81.8 Family history of other mental and behavioral disorders; Z85.528 Personal history of other malignant neoplasm of kidney; Z90.5 Acquired absence of kidney; Z79.82 Long term (current) use of aspirin
CPT/HCPCS: 36415; 70450; 71045; 76775; 80048; 80053; 81003; 81015; 82607; 83605; 83930; 84484; 85025; 85610; 85730; 87040; 87077; 87086; 87186; 94640; 99284; A9270-GY; G8978-GP-CK; G8979-GP-CJ; J0696; J1644

== ENCOUNTER 2019-06-30 16:11 | Emergency (ER) | payer MEDICARE, OTHER ==
[2019-06-30 18:50] LABS: ABS Basophils 0.1 10^3/ul (0-0.2); ABS Eosinophils 0.4 10^3/ul (0-0.6); ABS Monocytes 0.6 10^3/ul (0-0.8); ABS Neutrophils 5.5 10^3/ul (1.5-7.7); Eosinophil % 4.6 %; Hematocrit 40 % (35-47); Hemoglobin 13.7 g/dL (12.0-16.0); Lymphocyte % 23.5 %; Mean Corpuscular HGB Conc 34 g/dL (31-36); Mean Corpuscular Hemoglobin 30 pg (27-31); Mean Corpuscular Volume 89 fL (80-97); Platelet Count 538 10^3/uL (150-450); Red Blood Count 4.52 10^6 /uL (3.70-4.87); Red Cell Distribution Width 15 % (10-15); White Blood Count 8.6 10^3/uL (3.5-10.8)
[2019-06-30] MEDS ORDERED: Albuterol/Ipratropium NEB.SOL* Albuterol 2.5 MG/Ipratropium 0.5 MG 3 ML INH ONE (19:00)
--- NOTE | 2019-06-30 19:03 | ED ---
Shortness of Breath - HPI Summary HPI Summary: This patient is a 74 year old F presenting to [facility] accompanied by daughter and niece with a chief complaint of SOB since taking first dose of Cipro today. Pt was recently treated for a UTI and put on Keflex. Then UTI symptoms came back and she was put on Cipro by PCP. Last night (06/29/19) she had a very dry mouth and felt that she could not swallow anything and they do her mouth being dry. No difficulty swallowing secretions, or drinking. No trismus, jaw pain, dental pain. No sore throat. No fevers. She reports she has never had trouble swallowing but has chronic dypsnea 2/2 degenerative muscle condition. Patient reports having back pain. Pt has a PMHx of a degenerative disease that causes her muscles to be weak she is wheelchair bound at baseline. - History of Current Complaint Chief Complaint: EDShortnessOfBreath Time Seen by Provider: 06/30/19 18:04 Hx Obtained From: Patient Onset/Duration: Lasting Hours, Still Present Timing: Constant Aggravating Factors: Other - Antibiotics Associated Signs & Symptoms: Negative - Allergy/Home Medications Allergies/Adverse Reactions: Allergies Allergy/AdvReac Type Severity Reaction Status Date / Time codeine Allergy Nausea Verified 06/30/19 18:39 Home Medications: Home Medications Mirtazapine TAB* [Remeron TAB*] 15 mg PO BEDTIME 06/30/19 [History Confirmed 04/13] PMH/Surg Hx/FS Hx/Imm Hx Cardiovascular History: Denies: Hx Auto Implanted Cardiovert Defib Respiratory History: Reports: Hx Chronic Obstructive Pulmonary Disease (COPD) GI History: Denies: Hx Gastroesophageal Reflux Disease Musculoskeletal History: Reports: Hx Arthritis, Hx Back Problems Sensory History: Denies: Hx Contacts or Glasses, Hx Hearing Aid Opthamlomology History: Denies: Hx Contacts or Glasses Neurological History: Denies: Hx Transient Ischemic Attacks (TIA) Infectious Disease History: No Infectious Disease History: Denies: Traveled Outside the [place] in Last 30 Days - Family History Known Family History: Positive: Other - positive: father commited suicide - Social History Alcohol Use: None Substance Use Type: Reports: None Hx Tobacco Use: Yes Smoking Status (MU): Heavy Every Day Tobacco Smoker Type: Cigarettes Have You Smoked in the Last Year: Yes Review of Systems Positive: Other - pos - trouble swallowing, dry mouth. Negative: Dental Pain Positive: Shortness Of Breath Positive: Other - pos - back pain All Other Systems Reviewed And Are Negative: Yes Physical Exam - Summary Physical Exam Summary: Constitutional: Chronically ill-appearing, Alert. (-) Distressed Skin: Warm, Dry HENT: Normocephalic; intermittent pursing of lips, no trismus, no submandibular swelling, no tonsillar hypertrophy Eyes: Conjunctiva normal Neck: Musculoskeletal ROM normal neck. (-) JVD, (-) Stridor, (-) Nuchal rigidity Cardio: Rhythm regular, rate normal, Heart sounds normal; Intact distal pulses; Radial pulses are 2+ and symmetric. (-) Murmur Pulmonary/Chest wall: + increased work of breathing, mild bilateral rhonchi, upper airway congestion, Abd: Soft, (-) tenderness, (-) Distension, (-) Guarding, (-) Rebound Musculoskeletal: (-) Edema, chronic weakness lower extremities Lymph: (-) Cervical adenopathy Neuro: Alert, Oriented x3 Psych: Mood and affect Normal Triage Information Reviewed: Yes Vital Signs On Initial Exam: Initial Vitals Temp Pulse Resp BP Pulse Ox 98.8 F 66 26 182/98 94 06/30/19 16:17 06/30/19 16:17 06/30/19 16:17 06/30/19 16:17 06/30/19 16:17 Vital Signs Reviewed: Yes Diagnostics - Vital Signs Vital Signs Temp Pulse Resp BP Pulse Ox 06/30/19 18:27 64 168/115 93 06/30/19 18:00 64 94 06/30/19 17:57 64 172/87 94 06/30/19 17:56 64 94 06/30/19 16:17 98.8 F 66 26 182/98 94 - Laboratory Lab Results: Lab Results 06/30/19 Range/Units 18:43 WBC 8.6 (3.5-10.8) 10^3/uL RBC 4.52 (3.70-4.87) 10^6 /uL Hgb 13.7 (12.0-16.0) g/dL Hct 40 (35-47) % MCV 89 (80-97) fL MCH 30 (27-31) pg MCHC 34 (31-36) g/dL RDW 15 (10-15) % Plt Count 538 H D (150-450) 10^3/uL MPV 7.0 L (7.4-10.4) fL Neut % (Auto) 63.8 % Lymph % (Auto) 23.5 % [place] % (Auto) 7.3 % Eos % (Auto) 4.6 % Baso % (Auto) 0.8 % Absolute Neuts (auto) 5.5 (1.5-7.7) 10^3/ul Absolute Lymphs (auto) 2.0 (1.0-4.8) 10^3/ul Absolute Monos (auto) 0.6 (0-0.8) 10^3/ul Absolute Eos (auto) 0.4 (0-0.6) 10^3/ul Absolute Basos (auto) 0.1 (0-0.2) 10^3/ul Absolute Nucleated RBC 0.0 10^3/ul Nucleated RBC % 0.0 Result Diagrams: 06/30/19 18:43 06/30/19 18:43 Lab Statement: Any lab studies that have been ordered have been reviewed, and results considered in the medical decision making process. - Radiology CXR Radiology Interpretation Completed By: ED Physician Summary of Radiographic Findings: CXR reveals, per ED physician, reveals no acute cardio pulmonary disease. Pending official report. - EKG 1622 Cardiac Rate: NL - 68 bpm EKG Rhythm: Sinus Rhythm Summary of EKG Findings: An EKG at 1622 reveals normal sinus rhythm 68 bpm, APCs , no prior to compare. Re-Evaluation - Re-Evaluation First Eval Re-Evaluation Time: 18:55 Comment: Patient agreeable to staying for neb, but does not want to stay for further testing. Attempted to discuss observation given her history of respiratory distress but she does not wish to stay at this time. We'll reevaluate after her neb Second Eval Re-Evaluation Time: 20:38 Comment: Pt feels much improved and would like to be discharged. D/w patient I would be more comfortable observing her overnight and giving her more nebulizer treatments and more imaging. She states her WOB is much improved and she has no trouble swallowing at this time. Family at bedside and states they are comfortable going home. Course/Dx - Course Course Of Treatment: 74-year-old female with a history of degenerative muscular disease, COPD, recent UTI who presents with difficulty swallowing secondary to dry mouth and increased work of breathing. Regarding difficulty swallowing, patient states this is mostly secondary to feeling dry mouth now being able to cough up the secretions in her throat. No trismus is on exam, no submandibular swelling or tenderness to suggest Dimitrios, no tonsillar hypertrophy to suggest [employer], hypoxia is at baseline and patient is able to manage the secretions she is currently making in the room. Give albuterol neb to help mobilize secretions and suction. Patient does not work w RT, or stay for further workup including a CT scan of the neck. Shortness of breath ddx: Most likely 2/2 difficulty managing secretions versus pneumonia. Also consider: COPD exacerbation/asthma - does have a history of COPD we'll try an albuterol neb to see that helps mobilize the secretions in her throat. PNA -scant sputum production but unable to cough much up, no fevers or chills. No leukocytosis. CXR w/o infiltrate. Low suspicion. PTX - breath sounds equal, no risk factors for PTX, CXR w/o e/o PTX. ACS - no CP, no EKG changes, initial trop not elevated. Low suspicion. CHF - no h/o CHF, no CLEMENTE or orthopnea, no BLE, CXR w/o pulmonary edema. PE - patient is chronically bedbound, hypoxia atbaseline. Patient does not wish to pursue further workup including scans at this time - Diagnoses Provider Diagnoses: Shortness of breath Discharge - Sign-Out/Discharge Documenting (check all that apply): Patient Departure - Discharge Patient Received Moderate/Deep Sedation with Procedure: No - Discharge Plan Condition: Stable Disposition: HOME Patient Education Materials: Shortness of Breath (ED) Referrals: Cinthia Winston MD [Primary Care Provider] - 3 Days Additional Instructions: You were seen in the emergency department for shortness of breath. You got a neb here but if you are feeling worse please return to the emergency department. Your chest XRay did not show any evidence of pneumonia. If any studies were not completed at the time of discharge you will be called with the relevant results. Please follow up with your primary care doctor in next 2-3 days and return to emergency department for worsening or concerning symptoms. - Billing Disposition and Condition Condition: STABLE Disposition: Home - Attestation Statements Document Initiated by Tobyibe: Yes Documenting Scribe: Aby Chavarria Provider For Whom Janina is Documenting (Include Credential): Dr. Ethan Mojica MD Scribe Attestation: Aby Gauthier, scribed for Dr. Ethan Mojica MD on 06/30/19 at 2115. Scribe Documentation Reviewed: Yes Provider Attestation: The documentation as recorded by the tobyibeAby accurately reflects the service I personally performed and the decisions made by me, Dr. Ethan Mojica MD Status of Scribe Document: Viewed
[2019-06-30 19:06] LABS: Albumin 3.9 g/dL (3.2-5.2); Albumin/Globulin Ratio 1.1 (1-3); BUN/Creatinine Ratio 19.8 (8-20); Calcium 8.8 mg/dL (8.6-10.3); EGFR African American 83.6 (>60); EGFR Non-African American 69.1 (>60); Globulin 3.5 g/dL (2-4); Potassium 4.3 mmol/L (3.5-5.0); Total Bilirubin 0.2 mg/dL (0.2-1.0); Total Protein 7.4 g/dL (6.4-8.9)
[2019-06-30 19:08] LABS: Troponin I 0.01 ng/mL (<0.04)
[2019-06-30 21:03] VITALS: BP 159/92
== END 2019-06-30 21:02 | disposition home or self-care (01) ==
LOC: ED 16:11
DX: R06.02 Shortness of breath (principal); F17.210 Nicotine dependence, cigarettes, uncomplicated; J44.9 Chronic obstructive pulmonary disease, unspecified; Z88.5 Allergy status to narcotic agent; Z79.899 Other long term (current) drug therapy
CPT/HCPCS: 36415; 71046; 80053; 84484; 85025; 93005; 99283; A9270-GY

== ENCOUNTER 2019-08-24 11:59 | Inpatient (IN) | payer MEDICARE, OTHER ==
[2019-08-24] MEDS ORDERED: Albuterol 0.5% CONC NEB.SOL* 5 MG/ML 20 ml BOT INH ONE (12:16)
--- NOTE | 2019-08-24 12:19 | ED ---
Respiratory - HPI Summary HPI Summary: The pt is a 74 yr old female presenting to [facility] via EMS c/o SOB beginning 08/17. She notes that she started having difficulty breathing and wheezes about a week ago that has been worsening until today. She lives by herself but her niece, Millie, and caregiver are in the room with her. The pt mentions that she is not able to walk currently due to feeling weak from her symptoms. She uses 2 liters of O2 at home and her O2 saturation while in the EMS was 91%. The pt also has a nebulizer and took one dose at 1100 this morning. She also mentions that she experiences some pain in her legs while coughing. No alleviating factors noted. She rates her current pain severity a 0/10. She also reports coughing but denies any calf pain or CP. She is a current smoker. 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 LEVEL 5 CAVEAT. History is limited due to respiratory distress. Allergies Allergy/AdvReac Type Severity Reaction Status Date / Time codeine Allergy Nausea Verified 06/30/19 18:39 Home Medications Medication Instructions Recorded Confirmed Type Atorvastatin* [Lipitor 20 MG*] 20 mg PO QPM 05/15/19 06/30/19 History Mirabegron (NF) [Myrbetriq (NF)] 50 mg PO DAILY 05/15/19 06/30/19 History Primidone TAB(*) [Mysoline TAB(*)] 250 mg PO BID 05/15/19 06/30/19 History Tolterodine LA (NF) [Detrol LA 4 mg PO DAILY 05/15/19 06/30/19 History (NF)] Aspirin EC TAB* [Ecotrin EC Low 81 mg PO DAILY 06/12/19 06/30/19 History Dose 81 MG*] Cyanocobalamin (Vitamin B-12) 2,500 mcg PO DAILY 06/12/19 06/30/19 History [Vitamin B12] Docusate Sodium [Stool Softener] 100 mg PO BID PRN 06/12/19 06/30/19 History FLUoxetine CAP* [Prozac CAP*] 20 mg PO QAM 06/12/19 06/30/19 History FLUoxetine CAP* [Prozac CAP*] 40 mg PO QPM 06/12/19 06/30/19 History Losartan TAB* [Cozaar TAB*] 100 mg PO DAILY 06/12/19 06/30/19 History amLODIPine TAB* [Norvasc 5 mg TAB*] 10 mg PO QPM 06/12/19 06/30/19 History Mirtazapine TAB* [Remeron TAB*] 15 mg PO BEDTIME 06/30/19 06/30/19 History DOXYcycline 100MG CAP(*) 100 mg PO BID 08/24/19 08/24/19 History Guaifenesin 400 mg PO DAILY PRN 08/24/19 08/24/19 History Iprat-Albut 0.5-3(2.5) mg/3 ml 1 neb INH Q6HR PRN 08/24/19 08/24/19 History Solifenacin Succinate 10 mg PO DAILY 08/24/19 08/24/19 History - History of Current Complaint Chief Complaint: EDShortnessOfBreath Stated Complaint: SOB PER EMS Time Seen by Provider: 08/24/19 12:10 Hx Obtained From: Patient, Family/Tool And Fixture Repairer - nahomy Pinto Hx From Patient Unobtainable Due To: Other - LEVEL 5 CAVEAT. History is limited due to respiratory distress. Onset/Duration: Sudden Onset, Lasting Days - 7, Still Present Timing: Constant Initial Severity: Moderate Current Severity: Moderate Pain Intensity: 0 Character: Wheezing, Cough (Nonproductive) Sputum Amount: None Aggravating Factor(s): Other - leg pain when coughing Alleviating Factor(s): Nothing Associated Signs and Symptoms: Negative - fever, calf pain, SOB, Wheezing - Allergy/Home Medications Allergies/Adverse Reactions: Allergies Allergy/AdvReac Type Severity Reaction Status Date / Time codeine Allergy Nausea Verified 06/30/19 18:39 Home Medications: Home Medications Guaifenesin 400 mg PO DAILY PRN 08/24/19 [History Confirmed 08/24/19] Iprat-Albut 0.5-3(2.5) mg/3 ml 1 neb INH Q6HR PRN 08/24/19 [History Confirmed ] Salmeterol DISKUS (NF) [Serevent Diskus (NF)] 1 puff INH BID 08/24/19 [History Confirmed 08/24/19] Umeclidinium 62.5 MDI(NF) [Incruse ELLIPTA MDI (NF)] 1 inh INH DAILY 08/24/19 [ History Confirmed 08/24/19] PMH/Surg Hx/FS Hx/Imm Hx Previously Healthy: No Cardiovascular History: Reports: Hx Coronary Artery Disease, Hx Hypercholesterolemia, Hx Hypertension, Other Cardiovascular Problems/Disorders - heart cath and stent Denies: Hx Auto Implanted Cardiovert Defib Respiratory History: Reports: Hx Chronic Obstructive Pulmonary Disease (COPD) GI History: Denies: Hx Gastroesophageal Reflux Disease Musculoskeletal History: Reports: Hx Arthritis, Hx Back Problems, Other Musculoskeletal History - implanted baclofen pump for pain, LLQ Sensory History: Denies: Hx Contacts or Glasses, Hx Hearing Aid Opthamlomology History: Denies: Hx Contacts or Glasses Neurological History: Reports: Other Neuro Impairments/Disorders - lateral sclerosis Denies: Hx Transient Ischemic Attacks (TIA) - Cancer History Cancer Type, Location and Year: colon CA. right breast CA. skin CA - Surgical History Surgical History: Yes Surgery Procedure, Year, and Place: Partial Hysterectomy-still has uterus 1996, Disc Surgery-lower spine 1980, Cyst removal-rectum 1981, Baclofen pump implant 1996, Carpal tunnel 1996, Bladder repair 1998, Carpal tunnel and ulnar nerve in arm 1998, Baclofen pump replacement 2001, Cataract - left eye 2003, Colon resection for cancer 2006, Cataract - right eye 2007, Lumpectomy - right breast for CA 2010, Heart catheterization and stent impant 2010, Baclofen pump replacement 2013, Left kidney removal for cancer, Left Arm Ulnar Nerve 2014, Skin Cancer - Radiation treatment 2017. Infectious Disease History: No Infectious Disease History: Denies: Traveled Outside the [place] in Last 30 Days - Family History Known Family History: Positive: Other - positive: father committed suicide, father had CA - Social History Alcohol Use: None Substance Use Type: Reports: None Hx Tobacco Use: Yes Smoking Status (MU): Heavy Every Day Tobacco Smoker Type: Cigarettes Have You Smoked in the Last Year: Yes Review of Systems Positive: Fatigue Negative: Chest Pain Positive: Shortness Of Breath, Cough, Other - pos - wheezes Musculoskeletal: Other - neg - calf pain Neurological: Negative Psychological: Normal All Other Systems Reviewed And Are Negative: No - Comments Additional Review of Systems Comments: LEVEL 5 CAVEAT. History is limited due to respiratory distress. Physical Exam - Summary Physical Exam Summary: Appearance: Ill-appearing, no acute pain distress, obese, dyspneic at rest, speaks in short bursts Skin: Warm, color reflects adequate perfusion, dry Head: Normal Head/Face inspection, atraumatic Eyes: Conjunctiva clear ENT: Dry oral mucosa Neck: Supple, no nodes, no JVD Respiratory: severe respiratory distress at rest, Rhonchi and wheezes, inspiratory and expiratory, throughout Cardio: RRR, No murmur, pulses normal, brisk capillary refill Abdomen: Soft, nontender Bowel sounds: Present Musculoskeletal: Strength Intact/ROM 4/4 bilaterally in lower legs, no calf tenderness, +left thigh tenderness, no edema. Psychological: Normal Neuro: Alert, decreased muscle tone, no focal deficit Triage Information Reviewed: Yes Vital Signs On Initial Exam: Initial Vitals Temp Pulse Resp BP Pulse Ox 99.7 F 82 26 163/85 95 08/24/19 12:03 08/24/19 12:03 08/24/19 12:03 08/24/19 12:03 08/24/19 12:03 Vital Signs Reviewed: Yes Completion Of Physical Exam Limited Due To: Level 5 - LEVEL 5 Caveat. History is limited due to respiratory distress. Diagnostics - Vital Signs Vital Signs Temp Pulse Resp BP Pulse Ox 08/24/19 12:03 99.7 F 82 26 163/85 95 - Laboratory Result Diagrams: 08/24/19 12:35 08/24/19 12:48 Lab Statement: Any lab studies that have been ordered have been reviewed, and results considered in the medical decision making process. - Radiology CXR Radiology Interpretation Completed By: Radiologist Summary of Radiographic Findings: IMPRESSION: LOW LUNG VOLUMES. THE LUNGS ARE CLEAR FOR THE PHASE OF RESPIRATION. ED Physician has reviewed this report. - CT CTA Chest/Thorax CT Interpretation Completed By: Radiologist Summary of CT Findings: IMPRESSION: 1. NO PULMONARY ARTERIAL FILLING DEFECT TO SUGGEST PULMONARY EMBOLISM. 2. EMPHYSEMA WITH SUBPLEURAL FIBROTIC CHANGES. 3. ATHEROSCLEROSIS. 4. THERE ARE LOW-ATTENUATION ADRENAL MASSES BILATERALLY CONSISTENT WITH ADRENAL ADENOMAS. RECOMMEND COMPARISON TO PREVIOUS CROSS-SECTIONAL IMAGING OF THE ABDOMEN IF AVAILABLE. 5. 1.7 CM RIGHT THYROID NODULE. THE [employer] INCIDENTAL THYROID. FINDINGS COMMITTEE RECOMMENDS THYROID ULTRASOUND FOR INCIDENTAL NONSUSPICIOUS THYROID. NODULES GREATER THAN OR EQUAL TO 1.5 CM IN SIZE FOR THE PATIENT OVER THE AGE OF 35. ED Physician has reviewed this report. CTA CT Interpretation Completed By: Radiologist Summary of CT Findings: 5. 1.7 CM RIGHT THYROID NODULE. [facility] [employer] INCIDENTAL THYROID. FINDINGS COMMITTEE RECOMMENDS THYROID ULTRASOUND FOR INCIDENTAL NONSUSPICIOUS THYROID. NODULES GREATER THAN OR EQUAL TO 1.5 CM IN SIZE FOR THE PATIENT OVER THE AGE OF 35. ED Physician has reviewed this report. - Ultrasound Venous Doppler Ultrasound Interpretation Completed By: Radiologist Summary of Ultrasound Findings: IMPRESSION: NO RIGHT LOWER EXTREMITY DEEP VEIN THROMBOSIS. NO LEFT LOWER EXTREMITY DEEP VEIN THROMBOSIS. ED Physician has reviewed this report. - EKG 1241 Cardiac Rate: NL EKG Rhythm: Sinus Rhythm - [address] Segment: Non-Specific Ectopy: None : PACs EKG Comparison: No Significant Change Summary of EKG Findings: NSR @ 77 bpm, nml AV/IVCT, nml QTc, no acute changes, no significant changes from 06/30/19 except no PAC's on 08/24/19. ED MD has reviewed and interpreted this EKG. Re-Evaluation - Re-Evaluation First Eval Re-Evaluation Time: 15:00 Change: Unchanged Comment: Pt continues with insp and exp wheezes throughout, despite high dose continuous nebulization with albuterol. Will give another Duoneb. Will also give Solu-Medrol 125mg IV for COPD Rx. Second Eval Re-Evaluation Time: 15:45 Change: Improved Comment: Pt still with insp and exp wheezes throughout, but less respiratory distress. Can speak full sentences not. Pt agrees with admission. Disposition - Course Course Of Treatment: The pt is a 74 yr old female with hx COPD presenting to [facility] c/o SOB beginning 08/17/2019 and in severe respiratory distress despite home nebs, nebs and O2 per EMS. Pt with diffuse inspiratory and expiratory wheezes and rhonchi throughout and tachypneic and only able to speak in short bursts on arrival, requiring 3 L NC for O2 sats 93%. Pt given continuous high dose albuterol for one hour upon arrival with minimal improvement, given additional Duoneb and Solu-Medrol 125mg IV. Test results normal, including influenza swab, except for D-Dimer 238, Sodium 134, BUN/Creatinine 20.2, and CRP 52.16. A CXR reveals: LOW LUNG VOLUMES. THE LUNGS ARE CLEAR FOR THE PHASE OF RESPIRATION. A CTA chest/thorax reveals: 1. NO PULMONARY ARTERIAL FILLING DEFECT TO SUGGEST PULMONARY EMBOLISM. 2. EMPHYSEMA WITH SUBPLEURAL FIBROTIC CHANGES. 3. ATHEROSCLEROSIS. 4. THERE ARE LOW-ATTENUATION ADRENAL MASSES BILATERALLY CONSISTENT WITH ADRENAL ADENOMAS. RECOMMEND COMPARISON TO PREVIOUS CROSS-SECTIONAL IMAGING OF THE ABDOMEN IF AVAILABLE. 5. 1.7 CM RIGHT THYROID NODULE. THE [employer] INCIDENTAL THYROID. FINDINGS COMMITTEE RECOMMENDS THYROID ULTRASOUND FOR INCIDENTAL NONSUSPICIOUS THYROID. NODULES GREATER THAN OR EQUAL TO 1.5 CM IN SIZE FOR THE PATIENT OVER THE AGE OF 35. A Venous Doppler reveals: NO RIGHT LOWER EXTREMITY DEEP VEIN THROMBOSIS. NO LEFT LOWER EXTREMITY DEEP VEIN THROMBOSIS. An EKG reveals: NSR @ 77 bpm, nml AV/IVCT, nml QTc, no acute changes, no significant changes from 06/30/19 except no PAC's on 08/24/19. ED MD has reviewed and interpreted this EKG. Venous dopplers were done because of pt's limited mobility due to lateral sclerosis and her left thigh pain, and severe SOB, and neg CTA, in pt not on anticoagulation. DVT would change pt's therapy. Final Dx are COPD exacerbation and bronchitis, bilateral adrenal masses, thyroid nodule. Dr. Vincent was consulted at 1600 and will admit the pt to [facility] - Differential Dx - Cardiopulmonary Differential Diagnoses - Cardiopulmonary: Acute Dyspnea, Bronchitis, CHF, Exacerbation Of COPD, Hypoxia, Lower Resp Infection, Pulmonary Embolism - Diagnoses Provider Diagnoses: COPD exacerbation, Bronchitis, Lateral sclerosis, Thyroid nodule, Mass of both adrenal glands, Respiratory distress, acute, Hypertension, poor control, Hypoxia - Physician Notifications Discussed Care Of Patient With: Johann Vincent - Dr. Vincent will admit the pt to [facility] Time Discussed With Above Provider: 16:00 - Critical Care Time Critical Care Time: 30-74 min - 30 mins Discharge ED - Sign-Out/Discharge Documenting (check all that apply): Patient Departure - admit All imaging exams completed and their final reports reviewed: Yes Patient Received Moderate/Deep Sedation with Procedure: No - Discharge Plan Condition: Stable Disposition: ADMITTED TO [facility] - Billing Disposition and Condition Condition: STABLE Disposition: Admitted to [facility] - Attestation Statements Document Initiated by Scribe: Yes Documenting Scribe: Errol Das Provider For Whom Scribe is Documenting (Include Credential): Doris Hill MD Scribe Attestation: Errol Gauthier, scribed for Doris Hill MD on 09/16/19 at 2355. Scribe Documentation Reviewed: Yes Provider Attestation: The documentation as recorded by the scribe, Errol Das accurately reflects the service I personally performed and the decisions made by me, Doris Hill MD Status of Scribe Document: Viewed
[2019-08-24 12:56] LABS: ABS Basophils 0.1 10^3/ul (0-0.2); ABS Eosinophils 0.3 10^3/ul (0-0.6); ABS Lymphocytes 1.1 10^3/ul (1.0-4.8); ABS Monocytes 0.8 10^3/ul (0-0.8); ABS Neutrophils 6.4 10^3/ul (1.5-7.7); Eosinophil % 3.9 %; Hematocrit 37 % (35-47); Hemoglobin 12.5 g/dL (12.0-16.0); Lymphocyte % 12.3 %; Mean Corpuscular HGB Conc 34 g/dL (31-36); Mean Corpuscular Hemoglobin 31 pg (27-31); Mean Corpuscular Volume 90 fL (80-97); Nucleated Red Blood Cells % 0.1; Platelet Count 430 10^3/uL (150-450); Red Blood Count 4.11 10^6 /uL (3.70-4.87); Red Cell Distribution Width 16 % (10-15); White Blood Count 8.8 10^3/uL (3.5-10.8)
[2019-08-24 13:05] LABS: Activated Partial Thrombo Time 33.7 seconds (26.0-38.0); INR 1.03 (0.82-1.09)
[2019-08-24 13:15] LABS: Albumin 3.8 g/dL (3.2-5.2); Albumin/Globulin Ratio 1.2 (1-3); BUN/Creatinine Ratio 20.2 (8-20); C Reactive Protein 52.16 mg/L (<8.01); Calcium 8.7 mg/dL (8.6-10.3); Globulin 3.3 g/dL (2-4); Potassium 4.6 mmol/L (3.5-5.0); Total Bilirubin 0.3 mg/dL (0.2-1.0); Total Protein 7.1 g/dL (6.4-8.9)
[2019-08-24 14:01] LABS: Influenza A Molecular NEGATIVE (Negative); Influenza B Molecular NEGATIVE (Negative)
[2019-08-24] MEDS ORDERED: Iodixanol* (CONTRAST) 320 MG/ML 100 ML SDV IV ONE (14:12)
[2019-08-24] MEDS ORDERED: Albuterol/Ipratropium NEB.SOL* Albuterol 2.5 MG/Ipratropium 0.5 MG 3 ML INH ONE (15:11)
[2019-08-24] MEDS ORDERED: methylPREDNISolone 125 MG* 2 ML VIAL IV ONE (15:36)
[2019-08-24] MEDS ORDERED: Albuterol/Ipratropium NEB.SOL* Albuterol 2.5 MG/Ipratropium 0.5 MG 3 ML INH PRN (17:36)
[2019-08-24] MEDS ORDERED: Albuterol/Ipratropium NEB.SOL* Albuterol 2.5 MG/Ipratropium 0.5 MG 3 ML INH SCH (18:00)
[2019-08-24] MEDS: Azithromycin 500 mg/250 ml NS 500 MG/250 ML BAG IVPB SCH (19:17)
[2019-08-24] MEDS: Mometasone/Formoter 200/5 MDI INH SCH (19:35)
[2019-08-24] MEDS ORDERED: Albuterol/Ipratropium NEB.SOL* Albuterol 2.5 MG/Ipratropium 0.5 MG 3 ML ONE (19:51)
[2019-08-24] MEDS: Albuterol/Ipratropium NEB.SOL* Albuterol 2.5 MG/Ipratropium 0.5 MG 3 ML INH SCH (19:53)
[2019-08-24] MEDS ORDERED: Mometasone/Formoter 200/5 MDI INH SCH (21:00)
--- NOTE | 2019-08-24 21:10 | HP ---
HISTORY AND PHYSICAL: DATE OF ADMISSION: 08/24/19 ADMITTING PROVIDER: Johann Vincent MD PRIMARY CARE PROVIDER: Dr. Cinthia Winston. CHIEF COMPLAINT: Shortness of breath, wheeze, cough progressive over the last 2 weeks; generalized weakness with inability to transfer or stand as she usually is able to do. HISTORY OF PRESENT ILLNESS: Farrah Augustin is a 74-year-old female with PMH of primary lateral sclerosis; COPD, current smoker; chronic muscle spasms (with a baclofen pump); functional quadriplegia; essential tremors; arthritis; left kidney cancer, s/p nephrectomy in 2017; right breast cancer, status post resection; bilateral cataracts. Approximately 2 weeks prior to admission, she developed cold like symptoms including a headache and a cough. Cough was progressive and for the last week has gotten even more frequent. She has been quite wheezy and short of breath. She called into her primary care physician's office and got a prescription for doxycycline BID, which she has taken 3 doses of so far. She has been unable to stand and transfer as she usually does from her hospital bed to a wheelchair and back and so forth. She does have 24-hour nursing director support at home. She denies any fevers or chills, abdominal pain. She does have some night sweats. No nausea or vomiting. She was found by EMS to have Sats of 93% on her chronic 2 L of oxygen. Of note, she is a 1-pack per day smoker and 60-pack years. 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 She denies ever being admitted to the hospital COPD exacerbation or being on steroids. She denies ever having any heart disease or ever having an echocardiogram. Initial evaluation in the [facility] included afebrile, hemodynamically stable, no leukocytosis, D-dimer was 238, CRP was 52, and a chest x-ray demonstrated low lung volumes. Bilateral venous Doppler demonstrated no right or left DVT. CTA of the chest demonstrated no pulmonary embolus. There was emphysema with subpleural fibrotic changes. There was a low attenuation adrenal mass bilaterally consistent with adrenal adenomas and a 1.7 cm right thyroid nodule. She was referred to hospitalist service for suspected COPD exacerbation after failed to improve after DuoNeb and 125 mg of Solu-Medrol. At bedside is Edith, one of her 24-hour aides at home. PAST MEDICAL HISTORY: Primary Lateral Sclerosis; COPD; left kidney cancer, status post nephrectomy; colon cancer surgery; chronic spasms and back pain, with a baclofen pump; osteoarthritis; radiation for skin cancer as well; current smoker. MEDICATIONS: Include: 1. Incruse Ellipta 1 inhaled daily. 2. Salmeterol Diskus 1 puff inhaled b.i.d. 3. Doxycycline 100 mg p.o. b.i.d. (just started a day and a half ago). 4. Atorvastatin 20 mg p.o. q.p.m. 5. Aspirin 81 mg daily. 6. Amlodipine 10 mg q.p.m. 7. Tolterodine LA 4 mg p.o. daily. 8. Primidone 250 mg p.o. b.i.d. 9. Remeron 15 mg p.o. at bedtime. 10. Myrbetriq 50 mg p.o. daily. 11. Losartan 100 mg p.o. daily. 12. Fluoxetine 20 mg p.o. q.a.m. and 40 mg p.o. q.p.m. 13. Docusate 100 mg p.o. b.i.d. p.r.n. 14. Vitamin B12 2500 mcg p.o. daily. 15. Guaifenesin 400 mg p.o. daily p.r.n. 16. Solifenacin succinate 10 mg p.o. daily. 17. Ipratropium/albuterol nebs inhaled q.6 hours p.r.n. 18. Baclofen adminstered via pump ALLERGIES: CODEINE (nausea). FAMILY HISTORY: Mother is alive at age 94. Father of a cancer (he never disclosed what type to the family) and then he committed suicide. She has 1 sister and 2 half-brothers, who are healthy. 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 Denies alcohol use. She is a 1-pack per day for the last 60 years smoker. Her medical surrogate is her sister, Sue Holcomb. She states she is a DNR and has signed a MOLST already. REVIEW OF SYSTEMS: A complete 14-point review of systems negative except as per HPI. She does attest that she has a hospital bed at home and she does have increased coughing if she tries to lower the bed to flat. She does have some coughing episodes intermittently with certain types of food which she avoids. She generally takes soft foods. No recent coughing episodes. PHYSICAL EXAMINATION GENERAL APPEARANCE: No acute distress. VITAL SIGNS: Temperature 99.7; pulse rate 81; respiratory rate between 17 and 26; satting between 95% and 98% on 2 L nasal cannula; blood pressure initially 163/85, currently 133/72. HEENT: Normocephalic, atraumatic. Pupils are equal, round, and reactive to light. Extraocular motions intact. NECK: Supple. LUNGS: Marked wheezing bilaterally. No rhonchi or rales. CARDIOVASCULAR: Regular rate and rhythm. No murmurs, rubs or gallops, although frankly, the heart sounds are nearly obscured by her wheezing. ABDOMEN: Soft, nontender. No rebound. No guarding. No Padilla's sign. EXTREMITIES: Warm, well perfused. No peripheral edema. NEURO: Plant Engineer strength is 5/5. Dorsi and plantarflexion 4-/5 bilaterally. Cranial nerves II through XII are intact. SKIN: No lesions. No rashes. DIAGNOSTIC STUDIES/LAB DATA: White count 8.8, hemoglobin 12.5, hematocrit 37, platelets 430. INR 1.03, D-dimer 238. Sodium 134, potassium 4.6, chloride 103 , carbon dioxide 23, BUN 18, creatinine 0.89, glucose 97, lactic acid 1.0, calcium 8.7. Total bili 0.3, AST 18, ALT 19, alk phos 91. CK-MB 66, troponin 0.00, CRP 52, BNP 41. Albumin 3.8. Amylase 30, lipase 14. Influenza A and B rapid negative. Imaging: CT angiogram, impression: 1. No pulmonary arterial filling defect to suggest pulmonary embolism. 2. Emphysema with subpleural fibrotic changes. 3. Atherosclerosis. 4. There are low attenuation adrenal masses bilaterally consistent with adrenal adenomas. Recommend comparison with previous cross-sectional imaging of the abdomen if available. 5. A 1.7 cm right thyroid nodule. The [employer] Incidental Thyroid Findings Committee recommends thyroid ultrasound for incidental nonsuspicious thyroid nodules greater than or equal to 1.5 cm in size for patients over the age of 35. Chest x-ray: Low lung volumes, though the lungs are clear for the phase of respiration. EKG: Normal sinus rhythm, normal axis, heart rate 77. No ST elevations or depressions. T-wave inversion in V1, V2. No change from prior. QTc 441. ASSESSMENT AND PLAN: Farrah Augustin is a 74-year-old female with past medical history of progressive Primary (as opposed to amyotrophic) Lateral Sclerosis over the last 20 years with some intermittent dysphagia and current smoker of 60 -pack year 1 pack per day, presenting with 2 weeks of progressively worse cough , wheezing, shortness of breath and weakness. She was being admitted for chronic obstructive pulmonary disease exacerbation having failed outpatient initiation of doxycycline for the last day and a half. She has not been admitted for chronic obstructive pulmonary disease exacerbation before. She is status post 125 mg of Solu-Medrol in the ED and we are going to continue 40 mg Solu-Medrol q.12 hours starting tomorrow. DuoNeb q.6 hours, standing q.2 hours p.r.n. I am going to start azithromycin 500 mg IV q.24 hours. She has had a productive huffman thick cough, but often has trouble expectorating. We will get a sputum culture if able. For her primary lateral sclerosis and chronic spasms, we will continue her newly implanted baclofen pump, and her primidone. Continue also her home psychiatric medications including her fluoxetine 20 mg q.a.m. and 40 mg p.o. q.p.m., Remeron 15 mg q.p.m. For urinary spasms, continue solifenacin 10 mg p.o. daily if available and Myrbetriq 50 mg p.o. daily. For hyperlipidemia, continue atorvastatin 20 mg p.o. q.p.m. For her hypertension, continue amlodipine 10 mg p.o. q.p.m. and losartan 100 mg p.o. daily. For diet, continue heart-healthy, soft diet. I anticipate given the severity of her wheezing (even after 125mg solumedrol) that she will be here for multiple days and so she is being admitted to inpatient status. I spent 4 minutes providing the smoking cessation counseling and describing the progressive nature of chronic obstructive pulmonary disease and that it will be very difficult to keep her out of the hospital if she continues to smoke 1 pack per day. She denies any history of pulmonary function tests or local lung doctor and we would recommend pursuing those upon discharge. For her adrenal nodules, she is a relatively poor historian of her previous doctors in [place](I do not know her previous PCP in [place] for instance), we can reach out to Dr. Winston to see if she has further records of any known adrenal nodules or abdominal cross- sectional imaging in the past. Additionally, same similar plan with the thyroid nodule. She is a DNR. Medical surrogate is her sister, Sue Holcomb. For DVT prophylaxis, Lovenox 40 mg daily. [id number]/[facility] #: [id number] MTDD
[2019-08-24] MEDS: FLUoxetine CAP* 20 MG PO SCH (22:17)
[2019-08-24] MEDS: Enoxaparin(*) 40 MG/0.4 ML SYR SUBCUT SCH (22:18)
[2019-08-24] MEDS: amLODIPine TAB* 5 MG PO SCH (22:18)
[2019-08-24] MEDS: Atorvastatin* 20 MG TAB PO SCH (22:18)
[2019-08-24] MEDS: Mirtazapine TAB* 15 MG PO SCH (22:18)
[2019-08-24] MEDS: Primidone TAB(*) 250 MG PO SCH (22:40)
[2019-08-25] MEDS: Albuterol/Ipratropium NEB.SOL* Albuterol 2.5 MG/Ipratropium 0.5 MG 3 ML INH SCH ×4 (01:42→20:32)
[2019-08-25] MEDS: Mometasone/Formoter 200/5 MDI INH SCH ×2 (07:20→21:04)
[2019-08-25] MEDS: SPIRIVA Respimat* (tiotropium) 2.5 mcg/inh Inhaler INH SCH (07:20)
[2019-08-25 08:05] LABS: Urine Appearance Clear; Urine Bacteria Absent (Absent); Urine Bilirubin Negative (Negative); Urine Blood Negative (Negative); Urine Color Yellow; Urine Glucose Negative (Negative); Urine Ketones Negative (Negative); Urine Nitrite Negative (Negative); Urine Protein Negative (Negative); Urine Red Blood Cell 1+(3-5/hpf) (Absent); Urine Specific Gravity 1.019 (1.010-1.030); Urine Squamous Epithelial Cell Present (Absent); Urine Urobilinogen Negative (Negative); Urine White Blood Cell 2+(11-20/hpf) (Absent)
--- NOTE | 2019-08-25 08:16 | PN ---
Subjective Date of Service: 08/25/19 Interval History: HOSPITALIST PROGRESS NOTE Patient seen and examined at bedside. Care reviewed and d/w Cate Bender RN. She still has some dyspnea, but less intense than yesterday. Family History: Unchanged from Admission Social History: Unchanged from Admission Past Medical History: Unchanged from Admission Objective Active Medications: Albuterol/Ipratropium (Duoneb (Albuterol 2.5 Mg/Ipratropium 0.5 Mg)) 1 neb INH Q2H PRN PRN Reason: SOB/WHEEZING Albuterol/Ipratropium (Duoneb (Albuterol 2.5 Mg/Ipratropium 0.5 Mg)) 1 neb INH [id number] AWAKE [facility] Last Admin: 08/25/19 07:17 Dose: 1 neb Amlodipine Besylate (Norvasc Tab*) 10 mg PO QPM [facility] Last Admin: 08/24/19 22:18 Dose: 10 mg Aspirin (Aspirin Ec Tab*) 81 mg PO DAILY [facility] Atorvastatin Calcium (Lipitor*) 20 mg PO QPM [facility] Last Admin: 08/24/19 22:18 Dose: 20 mg Enoxaparin Sodium (Lovenox(*)) 40 mg SUBCUT Q24H [facility] Last Admin: 08/24/19 22:18 Dose: 40 mg Fluoxetine HCl (Prozac Cap*) 20 mg PO QAM [facility] Fluoxetine HCl (Prozac Cap*) 40 mg PO QPM [facility] Last Admin: 08/24/19 22:17 Dose: 40 mg Guaifenesin (Robitussin*) 20 ml PO DAILY PRN PRN Reason: CONGESTION Azithromycin (Zithromax 500 Mg/250 Ml) 500 mg in 250 mls @ 250 mls/hr IVPB Q24H [facility] Last Admin: 08/24/19 19:17 Dose: 250 mls/hr Losartan Potassium (Cozaar Tab*) 100 mg PO DAILY [facility] Methylprednisolone Sodium Succinate (Solu-Medrol 40 Mg) 40 mg IV Q8H [facility] Mirabegron (Myrbetriq (Nf)) 50 mg PO DAILY [facility] Mirtazapine (Remeron Tab*) 15 mg PO BEDTIME [facility] Last Admin: 08/24/19 22:18 Dose: 15 mg Mometasone Furoate/Formoterol Fumar (Dulera 200/5 Mdi*) 2 puff INH Q12HR [facility] Last Admin: 08/25/19 07:20 Dose: 2 puff Oxybutynin Chloride (Ditropan Xl Tab*) 10 mg PO DAILY [facility]; Protocol Primidone (Mysoline Tab(*)) 250 mg PO BID [facility] Last Admin: 08/24/19 22:40 Dose: 250 mg Solifenacin (Vesicare(Nf)) 10 mg PO DAILY [facility] Tiotropium [place] (Spiriva Respimat 2.5 Mcg) 2 puff INH DAILY [facility] Last Admin: 08/25/19 07:20 Dose: 2 puff Vital Signs - 8 hr 08/25/19 08/25/19 08/25/19 03:39 07:15 07:26 Temperature 97 F 98.2 F Pulse Rate 69 66 78 Respiratory 18 17 17 Rate Blood Pressure 123/61 139/65 (mmHg) O2 Sat by Pulse 94 97 98 Oximetry Oxygen Devices in Use Now: Nasal Cannula Appearance: Pleasant elderly lady sitting up in bed in [facility]. Eyes: No Scleral Icterus Ears/Nose/Mouth/Throat: Mucous Membranes Moist Neck: Trachea Midline Respiratory: Symmetrical Chest Expansion and Respiratory Effort, - - BS+ bilaterally with diffuse rhonchi Cardiovascular: RRR - Normal S1 and S2 Neurological: Alert and Oriented x 3, NL Muscle Strength and Tone Result Diagrams: 08/24/19 12:35 08/24/19 12:48 Assess/Plan/Problems-Billing Assessment: Mrs Augustin is a 74yo F with PMH of Amyotrophic lateral sclerosis, COPD, left kidney malignancy s/p nephrectomy, colon CA, chronic back pain and spasm s/p Baclofen pump, DJD, tobacco abuse, who presented to ED with c/o dyspnea and cough, found to have COPD exacerbation secondary to bronchitis. - Patient Problems (1) COPD exacerbation Comment: - Secondary to bronchitis - continue Azithromycin and add Ceftriaxone. - Continue steroids and bronchodilators. (2) Amyotrophic lateral sclerosis Comment: - Continue Primidone. - Has Baclofen pump. (3) Adrenal abnormality Comment: - CT showed incidental finding of adrenal masses compatible with adenomas; also 1.7cm thyroid nodule. - Will get more information from her PCP. (4) DVT prophylaxis Comment: - Lovenox. Status and Disposition: Inpatient.
[2019-08-25] MEDS: FLUoxetine CAP* 20 MG PO SCH ×2 (08:44→19:19)
[2019-08-25] MEDS: Losartan TAB* 25 MG PO SCH (08:44)
[2019-08-25] MEDS: Aspirin EC TAB* 81 MG TAB.EC PO SCH (08:44)
[2019-08-25] MEDS: methylPREDNISolone SOD 40 MG* 1 ML VIAL IV SCH ×2 (08:44→15:30)
[2019-08-25] MEDS: CMC:Solifenacin(NF) 5 MG TAB PO SCH (08:44)
[2019-08-25] MEDS: Primidone TAB(*) 250 MG PO SCH ×2 (08:45→20:04)
[2019-08-25] MEDS: Oxybutynin XL TAB* 5 MG PO SCH (08:45)
[2019-08-25] MEDS: guaiFENesin 100 mg/5 ml LIQ unit dose cup PO PRN (09:29)
[2019-08-25] MEDS: PTO:Mirabegron (NF) 50 MG TAB PO SCH (15:30)
[2019-08-25] MEDS: amLODIPine TAB* 5 MG PO SCH (19:19)
[2019-08-25] MEDS: Enoxaparin(*) 40 MG/0.4 ML SYR SUBCUT SCH (19:19)
[2019-08-25] MEDS: Atorvastatin* 20 MG TAB PO SCH (19:20)
[2019-08-25] MEDS: cefTRIAXone(*) 1 GM in NS 0.9% 50 ML* 50 ML IVPB SCH (19:20)
[2019-08-25] MEDS: Mirtazapine TAB* 15 MG PO SCH (20:04)
[2019-08-25] MEDS: Azithromycin 500 mg/250 ml NS 500 MG/250 ML BAG IVPB SCH (20:09)
[2019-08-26] MEDS: methylPREDNISolone SOD 40 MG* 1 ML VIAL IV SCH ×3 (00:47→15:59)
[2019-08-26] MEDS: Albuterol/Ipratropium NEB.SOL* Albuterol 2.5 MG/Ipratropium 0.5 MG 3 ML INH SCH ×4 (01:26→19:22)
--- NOTE | 2019-08-26 07:46 | PN ---
Subjective Date of Service: 08/26/19 Interval History: HOSPITALIST PROGRESS NOTE Patient seen and examined at bedside. Care reviewed and d/w Leslie Cardozo RN. She feels a little better today. Breathing is easier, but not back to baseline. Anxious to go home. Family History: Unchanged from Admission Social History: Unchanged from Admission Past Medical History: Unchanged from Admission Objective Active Medications: Albuterol/Ipratropium (Duoneb (Albuterol 2.5 Mg/Ipratropium 0.5 Mg)) 1 neb INH Q2H PRN PRN Reason: SOB/WHEEZING Albuterol/Ipratropium (Duoneb (Albuterol 2.5 Mg/Ipratropium 0.5 Mg)) 1 neb INH [id number] AWAKE [facility] Last Admin: 08/26/19 01:26 Dose: Not Given Amlodipine Besylate (Norvasc Tab*) 10 mg PO QPM [facility] Last Admin: 08/25/19 19:19 Dose: 10 mg Aspirin (Aspirin Ec Tab*) 81 mg PO DAILY [facility] Last Admin: 08/25/19 08:44 Dose: 81 mg Atorvastatin Calcium (Lipitor*) 20 mg PO QPM [facility] Last Admin: 08/25/19 19:20 Dose: 20 mg Enoxaparin Sodium (Lovenox(*)) 40 mg SUBCUT Q24H [facility] Last Admin: 08/25/19 19:19 Dose: 40 mg Fluoxetine HCl (Prozac Cap*) 20 mg PO QAM [facility] Last Admin: 08/25/19 08:44 Dose: 20 mg Fluoxetine HCl (Prozac Cap*) 40 mg PO QPM [facility] Last Admin: 08/25/19 19:19 Dose: 40 mg Guaifenesin (Robitussin*) 20 ml PO DAILY PRN PRN Reason: CONGESTION Last Admin: 08/25/19 09:29 Dose: 20 ml Azithromycin (Zithromax 500 Mg/250 Ml) 500 mg in 250 mls @ 250 mls/hr IVPB Q24H [facility] Last Admin: 08/25/19 20:09 Dose: 250 mls/hr Ceftriaxone Sodium 1 gm/ (Sodium Chloride) 50 mls @ 100 mls/hr IVPB Q24H [facility] Last Admin: 08/25/19 19:20 Dose: 100 mls/hr Losartan Potassium (Cozaar Tab*) 100 mg PO DAILY [facility] Last Admin: 08/25/19 08:44 Dose: 100 mg Methylprednisolone Sodium Succinate (Solu-Medrol 40 Mg) 40 mg IV Q8H [facility] Last Admin: 08/26/19 00:47 Dose: 40 mg Mirabegron (Myrbetriq (Nf)) 50 mg PO DAILY [facility] Last Admin: 08/25/19 15:30 Dose: Not Given Mirtazapine (Remeron Tab*) 15 mg PO BEDTIME [facility] Last Admin: 08/25/19 20:04 Dose: 15 mg Mometasone Furoate/Formoterol Fumar (Dulera 200/5 Mdi*) 2 puff INH Q12HR [facility] Last Admin: 08/25/19 21:04 Dose: 2 puff Oxybutynin Chloride (Ditropan Xl Tab*) 10 mg PO DAILY [facility]; Protocol Last Admin: 08/25/19 08:45 Dose: 10 mg Primidone (Mysoline Tab(*)) 250 mg PO BID [facility] Last Admin: 08/25/19 20:04 Dose: 250 mg Solifenacin (Vesicare(Nf)) 10 mg PO DAILY [facility] Last Admin: 08/25/19 08:44 Dose: 10 mg Tiotropium [place] (Spiriva Respimat 2.5 Mcg) 2 puff INH DAILY [facility] Last Admin: 08/25/19 07:20 Dose: 2 puff Vital Signs - 8 hr 08/26/19 08/26/19 00:29 03:19 Temperature 97.7 F 97.2 F Pulse Rate 68 66 Respiratory 16 20 Rate Blood Pressure 119/61 142/64 (mmHg) O2 Sat by Pulse 94 92 Oximetry Oxygen Devices in Use Now: Nasal Cannula - 2 liters Appearance: Pleasant elderly lady lying in bed in [facility] Eyes: No Scleral Icterus Ears/Nose/Mouth/Throat: Mucous Membranes Moist Neck: Trachea Midline Respiratory: Symmetrical Chest Expansion and Respiratory Effort, - - BS+ bilaterally with diffuse wheezing Cardiovascular: RRR - Normal S1 and S2 Neurological: Alert and Oriented x 3 Result Diagrams: 08/24/19 12:35 08/24/19 12:48 Assess/Plan/Problems-Billing Assessment: Case is a 74yo F with PMH of Amyotrophic lateral sclerosis, COPD, left kidney malignancy s/p nephrectomy, colon CA, chronic back pain and spasm s/p Baclofen pump, DJD, tobacco abuse, who presented to ED with c/o dyspnea and cough, found to have COPD exacerbation secondary to bronchitis. - Patient Problems (1) COPD exacerbation Comment: - Secondary to bronchitis - continue Azithromycin and Ceftriaxone. - Continue steroids and bronchodilators. (2) Amyotrophic lateral sclerosis Comment: - Continue Primidone. - Has Baclofen pump. (3) Adrenal abnormality Comment: - CT showed incidental finding of adrenal masses compatible with adenomas; also 1.7cm thyroid nodule. - Will need further w/u as outpatient with Dr Winston. (4) Physical deconditioning Comment: - PT evaluation. (5) DVT prophylaxis Comment: - Lovenox. Status and Disposition: Inpatient.
[2019-08-26] MEDS: FLUoxetine CAP* 20 MG PO SCH ×2 (08:16→18:07)
[2019-08-26] MEDS: Losartan TAB* 25 MG PO SCH (08:17)
[2019-08-26] MEDS: Primidone TAB(*) 250 MG PO SCH ×2 (08:18→20:21)
[2019-08-26] MEDS: Aspirin EC TAB* 81 MG TAB.EC PO SCH (08:18)
[2019-08-26] MEDS: SPIRIVA Respimat* (tiotropium) 2.5 mcg/inh Inhaler INH SCH (08:19)
[2019-08-26] MEDS: Mometasone/Formoter 200/5 MDI INH SCH ×2 (08:19→19:21)
[2019-08-26] MEDS: CMC:Solifenacin(NF) 5 MG TAB PO SCH (08:21)
[2019-08-26] MEDS: Oxybutynin XL TAB* 5 MG PO SCH (08:22)
[2019-08-26] MEDS: PTO:Mirabegron (NF) 50 MG TAB PO SCH (08:22)
[2019-08-26 15:04] LABS: Urine Appearance Cloudy; Urine Bilirubin Negative (Negative); Urine Blood Negative (Negative); Urine Color Straw; Urine Glucose Negative (Negative); Urine Ketones Negative (Negative); Urine Nitrite Negative (Negative); Urine Protein Negative (Negative); Urine Specific Gravity 1.005 (1.010-1.030); Urine Urobilinogen Negative (Negative)
[2019-08-26] MEDS: cefTRIAXone(*) 1 GM in NS 0.9% 50 ML* 50 ML IVPB SCH (16:36)
[2019-08-26] MEDS: Azithromycin 500 mg/250 ml NS 500 MG/250 ML BAG IVPB SCH (17:46)
[2019-08-26] MEDS: Atorvastatin* 20 MG TAB PO SCH (17:53)
[2019-08-26] MEDS: amLODIPine TAB* 5 MG PO SCH (17:54)
[2019-08-26] MEDS: Mirtazapine TAB* 15 MG PO SCH (20:21)
[2019-08-26] MEDS: Enoxaparin(*) 40 MG/0.4 ML SYR SUBCUT SCH (20:22)
[2019-08-27] MEDS: methylPREDNISolone SOD 40 MG* 1 ML VIAL IV SCH ×3 (00:56→17:02)
[2019-08-27] MEDS: Albuterol/Ipratropium NEB.SOL* Albuterol 2.5 MG/Ipratropium 0.5 MG 3 ML INH SCH ×4 (01:01→19:45)
[2019-08-27] MEDS: Mometasone/Formoter 200/5 MDI INH SCH ×2 (08:21→20:23)
[2019-08-27] MEDS: SPIRIVA Respimat* (tiotropium) 2.5 mcg/inh Inhaler INH SCH (08:23)
[2019-08-27] MEDS: Primidone TAB(*) 250 MG PO SCH ×2 (10:05→19:20)
[2019-08-27] MEDS: Aspirin EC TAB* 81 MG TAB.EC PO SCH (10:06)
[2019-08-27] MEDS: Losartan TAB* 25 MG PO SCH (10:06)
[2019-08-27] MEDS: Oxybutynin XL TAB* 5 MG PO SCH (10:08)
[2019-08-27] MEDS: FLUoxetine CAP* 20 MG PO SCH ×2 (10:08→17:10)
[2019-08-27] MEDS: PTO:Mirabegron (NF) 50 MG TAB PO SCH (10:09)
[2019-08-27] MEDS: CMC:Solifenacin(NF) 5 MG TAB PO SCH (10:09)
--- NOTE | 2019-08-27 15:02 | PN ---
Subjective Date of Service: 08/27/19 Interval History: Farrah is feeling well today. She is anxious to go home. Her breathing feels back to her baseline. Her aide is at the bedside and agrees that she is back to baseline. She is eating her breakfast. Family History: Unchanged from Admission Social History: Unchanged from Admission Past Medical History: Unchanged from Admission Objective Active Medications: Albuterol/Ipratropium (Duoneb (Albuterol 2.5 Mg/Ipratropium 0.5 Mg)) 1 neb INH Q2H PRN PRN Reason: SOB/WHEEZING Albuterol/Ipratropium (Duoneb (Albuterol 2.5 Mg/Ipratropium 0.5 Mg)) 1 neb INH [id number] AWAKE [facility] Last Admin: 08/27/19 14:01 Dose: 1 neb Amlodipine Besylate (Norvasc Tab*) 10 mg PO QPM [facility] Last Admin: 08/26/19 17:54 Dose: 10 mg Aspirin (Aspirin Ec Tab*) 81 mg PO DAILY [facility] Last Admin: 08/27/19 10:06 Dose: 81 mg Atorvastatin Calcium (Lipitor*) 20 mg PO QPM [facility] Last Admin: 08/26/19 17:53 Dose: 20 mg Enoxaparin Sodium (Lovenox(*)) 40 mg SUBCUT Q24H [facility] Last Admin: 08/26/19 20:22 Dose: 40 mg Fluoxetine HCl (Prozac Cap*) 20 mg PO QAM [facility] Last Admin: 08/27/19 10:08 Dose: 20 mg Fluoxetine HCl (Prozac Cap*) 40 mg PO QPM [facility] Last Admin: 08/26/19 18:07 Dose: 40 mg Guaifenesin (Robitussin*) 20 ml PO DAILY PRN PRN Reason: CONGESTION Last Admin: 08/25/19 09:29 Dose: 20 ml Azithromycin (Zithromax 500 Mg/250 Ml) 500 mg in 250 mls @ 250 mls/hr IVPB Q24H [facility] Last Admin: 08/26/19 17:46 Dose: 250 mls/hr Ceftriaxone Sodium 1 gm/ (Sodium Chloride) 50 mls @ 100 mls/hr IVPB Q24H [facility] Last Admin: 08/26/19 16:36 Dose: 100 mls/hr Losartan Potassium (Cozaar Tab*) 100 mg PO DAILY [facility] Last Admin: 08/27/19 10:06 Dose: 100 mg Methylprednisolone Sodium Succinate (Solu-Medrol 40 Mg) 40 mg IV Q8H [facility] Last Admin: 08/27/19 09:31 Dose: 40 mg Mirabegron (Myrbetriq (Nf)) 50 mg PO DAILY [facility] Last Admin: 08/27/19 10:09 Dose: 50 mg Mirtazapine (Remeron Tab*) 15 mg PO BEDTIME [facility] Last Admin: 08/26/19 20:21 Dose: 15 mg Mometasone Furoate/Formoterol Fumar (Dulera 200/5 Mdi*) 2 puff INH Q12HR [facility] Last Admin: 08/27/19 08:21 Dose: 2 puff Oxybutynin Chloride (Ditropan Xl Tab*) 10 mg PO DAILY [facility]; Protocol Last Admin: 08/27/19 10:08 Dose: 10 mg Primidone (Mysoline Tab(*)) 250 mg PO BID [facility] Last Admin: 08/27/19 10:05 Dose: 250 mg Solifenacin (Vesicare(Nf)) 10 mg PO DAILY [facility] Last Admin: 08/27/19 10:09 Dose: 10 mg Tiotropium [place] (Spiriva Respimat 2.5 Mcg) 2 puff INH DAILY [facility] Last Admin: 08/27/19 08:23 Dose: 2 puff Vital Signs - 8 hr 08/27/19 08/27/19 08/27/19 08:00 08:17 08:49 Temperature 97.6 F Pulse Rate 68 68 Respiratory 16 20 16 Rate Blood Pressure 147/58 (mmHg) O2 Sat by Pulse 96 95 Oximetry 08/27/19 11:38 Temperature 98.4 F Pulse Rate 76 Respiratory 23 Rate Blood Pressure 150/69 (mmHg) O2 Sat by Pulse 96 Oximetry Oxygen Devices in Use Now: Nasal Cannula Appearance: alert, eating breakfast, breathing comfortably Eyes: No Scleral Icterus Ears/Nose/Mouth/Throat: NL Teeth, Lips, Gums Neck: NL Appearance and Movements; NL JVP Respiratory: Symmetrical Chest Expansion and Respiratory Effort, - - diffusely rhonchorous, occasional scattered wheeze Cardiovascular: NL Sounds; No Murmurs; No JVD, RRR Abdominal: NL Sounds; No Tenderness; No Distention Lymphatic: No Cervical Adenopathy Extremities: No Edema Skin: No Rash or Ulcers Result Diagrams: 08/24/19 12:35 08/24/19 12:48 Microbiology and Other Data: Microbiology 08/25/19 12:15 Gram Stain - Final Sputum 08/24/19 12:35 Aerobic Blood Culture - Preliminary Blood Venous No Growth Day 1 Anaerobic Blood Culture - Preliminary No Growth Day 1 08/24/19 12:35 Aerobic Blood Culture - Preliminary Blood Venous No Growth Day 1 Anaerobic Blood Culture - Preliminary No Growth Day 1 Assess/Plan/Problems-Billing Assessment: Mrs Case is a 74yo F with PMH of Amyotrophic lateral sclerosis, COPD, left kidney malignancy s/p nephrectomy, colon CA, chronic back pain and spasm s/p Baclofen pump, DJD, tobacco abuse, who presented to ED with c/o dyspnea and cough, found to have COPD exacerbation secondary to bronchitis. - Patient Problems (1) COPD exacerbation Current Visit: Yes Status: Acute Code(s): J44.1 - CHRONIC OBSTRUCTIVE PULMONARY DISEASE W (ACUTE) EXACERBATION SNOMED Code(s): 008113570 Comment: has not been formally diagnosed with COPD but has smoked x 60 pack years improving on steroids, nebs, ceftriaxone/azithromycin sputum growing pseudomonas but no infiltrate, no evidence of infection so would expect this to be colonization but she says she has never been treated for copd exacerbation in the past? Consult David today--appreciate her input; also question of whether her underlying pathology is realted to ALS and a restrictive process (2) Urinary retention Current Visit: Yes Status: Acute Code(s): R33.9 - RETENTION OF URINE, UNSPECIFIED SNOMED Code(s): 392889971 Comment: now with myles catheter in place suspect neurogenic bladder in setting of ALS and acute illness [facility]; likely needs to be discharged with myles and close folow up (3) Adrenal abnormality Current Visit: Yes Status: Acute Code(s): E27.9 - DISORDER OF ADRENAL GLAND , UNSPECIFIED SNOMED Code(s): 84565788 Comment: CT showed incidental finding of adrenal masses compatible with adenomas; also 1.7cm thyroid nodule. Will need further w/u as outpatient with Dr Winston (this was discussed with Dr. Winston by Dr. Rehman) . (4) Amyotrophic lateral sclerosis Current Visit: Yes Status: Acute Code(s): G12.21 - AMYOTROPHIC LATERAL SCLEROSIS SNOMED Code(s): 58674300 Comment: Continue Primidone. Has Baclofen pump. (5) Physical deconditioning Current Visit: Yes Status: Acute Code(s): R53.81 - OTHER MALAISE SNOMED Code(s): 80092950100919 Comment: PT reported her to be 2-person assist and needing to be 1-person assist prior to returning home; not yet at baseline so likely cannot be discharged today Status and Disposition: Inpatient; david consult today and needs more PT prior to discharge
--- NOTE | 2019-08-27 17:01 | CONS ---
PULMONARY CONSULTATION REPORT: DATE OF CONSULT: 08/27/19 CONSULTATION REQUESTED BY: Dr. Keyanna Peng. REASON FOR CONSULT: Evaluation of COPD exacerbation. HISTORY OF PRESENT ILLNESS: The patient is a 74-year-old female, current smoker with significant smoking history, also with history of lateral sclerosis ; COPD; chronic muscle spasms, on baclofen pump; quadriplegia; left kidney cancer, status post nephrectomy; and right breast cancer, status post resection. The patient was brought in for evaluation of worsening shortness of breath, cough, and wheezing. The patient has been in normal state of health. Two weeks prior to the admission, she had cold like symptoms and cough that was progressively getting worse. She also had developed worsening shortness of breath at rest. She also has been noticing wheezing. She called primary care physician's office and was prescribed doxycycline. She is usually wheelchair dependent and does not ambulate due to her back issues and also from the lateral sclerosis and weakness. She normally can pivot and stand during the transfers; however, her home health aide noticed that the patient has been having more trouble with that, she has been weaker than her normal self. She also had some night sweats with no documented fevers or chills. The patient decided to come into the emergency room for further evaluation. She was found by EMS to have O2 sats at 93% while on 2 L oxygen that she is chronically on. She was noted to be hemodynamically stable, afebrile without any significant leukocytosis, with slightly elevated D-dimer and CRP. Further evaluation included lower extremity Dopplers which showed no DVT. She subsequently had CT of the chest which did not reveal any filling defects. I personally reviewed CT of the chest. The patient with evidence of significant emphysematous changes. The patient also with evidence of prominence of interstitium with subpleural fibrotic changes. She also was noted to have adrenal mass consistent with possible adenomas. Pulmonary consultation was requested. The patient reports slight improvement in her breathing. She is still requiring O2 supplementation at 3 L per minute. She was started on DuoNeb, Solu-Medrol, antibiotics. PAST MEDICAL HISTORY: 1. Lateral sclerosis. 2. COPD. 3. Left kidney cancer, status post nephrectomy. 4. Colon cancer, status post surgery. 5. Chronic back spasms and pain, on a baclofen pump. 6. Osteoarthritis. 7. Radiation for skin cancer. 8. Current tobacco use. MEDICATIONS: 1. Incruse. 2. Advair Diskus. 3. Doxycycline. 4. Atorvastatin. 5. Aspirin. 6. Amlodipine. 7. Tolterodine. 8. Primidone. 9. Remeron. 10. Myrbetriq. 11. Losartan. 12. Fluoxetine. 13. Docusate. 14. Vitamin B12. 15. Guaifenesin. 16. Solifenacin succinate. 17. Ipratropium/albuterol nebs. ALLERGIES: CODEINE. FAMILY HISTORY: Mother is alive at age 94. Father from cancer. She has 1 sister and 2 half-brothers, who are healthy. SOCIAL HISTORY: Retried from [employer] department in [place]. Denies alcohol use. Significant smoking history, 60-pack year smoking, still smokes about a pack a day. REVIEW OF SYSTEMS: All 14 systems reviewed and as per HPI. PHYSICAL EXAM: The patient is in chair, in no apparent distress. Vital Signs: Temperature 97.7, pulse 79 beats per minute, respiratory rate 20 per minute, O2 sat 95% on 3 L, blood pressure 141/63. HEENT: Pupils equal, reactive to light. Mucous membranes moist. Lungs: Diminished air entry bilaterally, scattered wheeze present. Cardiovascular: S1, S2 present, regular. Abdomen: Soft, nontender, nondistended. Bowel sounds present. Extremities: Normal range of motion. Skin: No rash. DIAGNOSTIC STUDIES/LAB DATA: WBC count 8.8, hemoglobin 12.5, hematocrit 37, platelet count 430. Sodium 134, potassium 4.6, chloride 103, bicarb 23, BUN 18 , creatinine 0.89. CRP 52. BNP 41. Lactic acid 1.0. Influenza A and B negative. Sputum Gram stain positive for pseudomonas, susceptible to cefepime, Cipro, levofloxacin, Zosyn; resistant to cefazolin. Blood cultures negative to date. CT of the chest as described above in HPI. IMPRESSION AND RECOMMENDATIONS: 74-year-old female with significant smoking history, still continues to smoke, with history of lateral sclerosis, admitted with worsening shortness of breath, being treated for acute chronic obstructive pulmonary disease exacerbation. She does have evidence of scarring in subpleural location and prominence of interstitium noted on the CT scan. She also was noted to have significant emphysematous changes. She also is being treated for acute chronic obstructive pulmonary disease exacerbation and acute on chronic hypoxemic respiratory failure. The patient reports improvement in her breathing. Given her history of lateral sclerosis, she would benefit from noninvasive ventilation. Will order ABG to evaluate for hypercapnia. If hypercapnia is present, she would benefit from noninvasive ventilation given lateral sclerosis and also chronic obstructive pulmonary disease. Thank you for allowing me to participate in the care of your patient. Will follow up with you. [id number]/[facility] #: [id number] TYLER
[2019-08-27] MEDS: Atorvastatin* 20 MG TAB PO SCH (17:10)
[2019-08-27] MEDS: amLODIPine TAB* 5 MG PO SCH (17:11)
[2019-08-27] MEDS: Levofloxacin TAB* 750 MG PO SCH (17:34)
[2019-08-27] MEDS: Enoxaparin(*) 40 MG/0.4 ML SYR SUBCUT SCH (19:20)
[2019-08-27] MEDS: guaiFENesin 100 mg/5 ml LIQ unit dose cup PO PRN (19:20)
[2019-08-27] MEDS: Mirtazapine TAB* 15 MG PO SCH (19:20)
[2019-08-28] MEDS: Albuterol/Ipratropium NEB.SOL* Albuterol 2.5 MG/Ipratropium 0.5 MG 3 ML INH SCH ×4 (01:55→19:30)
[2019-08-28] MEDS: methylPREDNISolone SOD 40 MG* 1 ML VIAL IV SCH ×3 (03:01→16:08)
[2019-08-28] MEDS: Mometasone/Formoter 200/5 MDI INH SCH ×2 (07:50→19:30)
[2019-08-28] MEDS: SPIRIVA Respimat* (tiotropium) 2.5 mcg/inh Inhaler INH SCH ×2 (07:52→13:44)
[2019-08-28] MEDS: Losartan TAB* 25 MG PO SCH (08:10)
[2019-08-28] MEDS: Primidone TAB(*) 250 MG PO SCH ×2 (08:10→20:05)
[2019-08-28] MEDS: CMC:Solifenacin(NF) 5 MG TAB PO SCH (08:10)
[2019-08-28] MEDS: Oxybutynin XL TAB* 5 MG PO SCH (08:10)
[2019-08-28] MEDS: Aspirin EC TAB* 81 MG TAB.EC PO SCH (08:10)
[2019-08-28] MEDS: FLUoxetine CAP* 20 MG PO SCH ×2 (08:10→17:30)
[2019-08-28] MEDS: PTO:Mirabegron (NF) 50 MG TAB PO SCH (08:10)
--- NOTE | 2019-08-28 16:10 | PN ---
Progress Note - Progress Note Date of Service: 08/28/19 - Pulm f/u note Note: Pt seen and examined at bedside. Pt reports hving cough productive of yellow phleghm. Pt reports improvement in SOB Active Medications Generic Name Dose Route Start Last Admin Trade Name Freq PRN Reason Stop Dose Admin Albuterol/Ipratropium 1 neb 08/24/19 17:36 Duoneb (Albuterol 2.5 Mg/Ipratropium 0.5 Mg) INH Q2H PRN SOB/WHEEZING Albuterol/Ipratropium 1 neb 08/24/19 19:00 08/28/19 13:44 Duoneb (Albuterol 2.5 Mg/Ipratropium 0.5 Mg) INH 1 neb [id number] AWAKE SUNDAR Administration Amlodipine Besylate 10 mg 08/24/19 18:00 08/27/19 17:11 Norvasc Tab* PO 10 mg QPM SUNDAR Administration Aspirin 81 mg 08/25/19 09:00 08/28/19 08:10 Aspirin Ec Tab* PO 81 mg DAILY SUNDAR Administration Atorvastatin Calcium 20 mg 08/24/19 18:00 08/27/19 17:10 Lipitor* PO 20 mg QPM SUNDAR Administration Enoxaparin Sodium 40 mg 08/24/19 19:00 08/27/19 19:20 Lovenox(*) SUBCUT 40 mg Q24H SUNDAR Administration Fluoxetine HCl 20 mg 08/25/19 09:00 08/28/19 08:10 Prozac Cap* PO 20 mg QAM SUNDAR Administration Fluoxetine HCl 40 mg 08/24/19 18:00 08/27/19 17:10 Prozac Cap* PO 40 mg QPM SUNDAR Administration Guaifenesin 20 ml 08/24/19 17:29 08/27/19 19:20 Robitussin* PO 20 ml DAILY PRN Administration CONGESTION Levofloxacin 750 mg 08/27/19 17:30 08/27/19 17:34 Levaquin Tab* PO 750 mg Q24H SUNDAR Administration Protocol Losartan Potassium 100 mg 08/25/19 09:00 08/28/19 08:10 Cozaar Tab* PO 100 mg DAILY SUNDAR Administration Methylprednisolone Sodium Succinate 40 mg 08/25/19 08:00 08/28/19 08:11 Solu-Medrol 40 Mg IV 40 mg Q8H SUNDAR Administration Mirabegron 50 mg 08/25/19 09:00 08/28/19 08:10 Myrbetriq (Nf) PO 50 mg DAILY [facility]AR Administration Mirtazapine 15 mg 08/24/19 21:00 08/27/19 19:20 Remeron Tab* PO 15 mg BEDTIME SUNDAR Administration Mometasone Furoate/Formoterol Fumar 2 puff 08/24/19 22:00 08/28/19 07:50 Dulera 200/5 Mdi* INH 2 puff Q12HR SUNDAR Administration Oxybutynin Chloride 10 mg 08/25/19 09:00 08/28/19 08:10 Ditropan Xl Tab* PO 10 mg DAILY SUNDAR Administration Protocol Primidone 250 mg 08/24/19 21:00 08/28/19 08:10 Mysoline Tab(*) PO 250 mg BID SUNDAR Administration Solifenacin 10 mg 08/25/19 09:00 08/28/19 08:10 Vesicare(Nf) PO 10 mg DAILY [facility]AR Administration Tiotropium [place] 2 puff 08/25/19 09:00 08/28/19 13:44 Spiriva Respimat 2.5 Mcg INH 2 puff DAILY SUNDAR Administration Vital Signs Temp Pulse Resp BP Pulse Ox 98.5 F 76 16 160/73 98 08/28/19 11:03 08/28/19 13:47 08/28/19 13:47 08/28/19 11:03 08/28/19 13:47 O/E: Pt in NAD HEENT:PERRLA, No JVD Lungs: Dimnished air entry b/l, rhonchi+ CVS: S1, S2+ Abd: soft, BS+ Ext: Normal ROM Skin: No rash Laboratory Results - last 24 hr 08/27/19 16:12 ABG pH 7.42 ABG pCO2 37 ABG pO2 70 L ABG HCO3 24.7 ABG O2 Saturation 97.6 ABG Base Excess -0.2 I/R: 74yo F with PMH of lateral sclerosis, COPD, renal carcinoma s/p lt nephrectomy, colon CA, chronic back pain and spasm s/p Baclofen pump, DJD, tobacco abuse, who presented to ED with c/o dyspnea and cough, found to have COPD exacerbation secondary to bronchitis. Pt improving slowly ABG was reviewed, no hypercapnia Hypoxia sec to COPD Pt with emphysema nad mild fibrosis on CT chest Discussed importance of compliance with flutter device c/w bronchodilators, steroids OOB to chair
[2019-08-28] MEDS: Levofloxacin TAB* 750 MG PO SCH (17:30)
[2019-08-28] MEDS: Atorvastatin* 20 MG TAB PO SCH (17:30)
[2019-08-28] MEDS: amLODIPine TAB* 5 MG PO SCH (17:30)
[2019-08-28] MEDS: Enoxaparin(*) 40 MG/0.4 ML SYR SUBCUT SCH (17:33)
--- NOTE | 2019-08-28 18:15 | PN ---
Subjective Date of Service: 08/28/19 Interval History: Pt is feeling better today but is not quite back to her baseline. She is coughing up some sputum. Her weakness is getting better. Family History: Unchanged from Admission Social History: Unchanged from Admission Past Medical History: Unchanged from Admission Objective Active Medications: Albuterol/Ipratropium (Duoneb (Albuterol 2.5 Mg/Ipratropium 0.5 Mg)) 1 neb INH Q2H PRN PRN Reason: SOB/WHEEZING Albuterol/Ipratropium (Duoneb (Albuterol 2.5 Mg/Ipratropium 0.5 Mg)) 1 neb INH [id number] AWAKE [facility] Last Admin: 08/28/19 13:44 Dose: 1 neb Amlodipine Besylate (Norvasc Tab*) 10 mg PO QPM [facility] Last Admin: 08/28/19 17:30 Dose: 10 mg Aspirin (Aspirin Ec Tab*) 81 mg PO DAILY [facility] Last Admin: 08/28/19 08:10 Dose: 81 mg Atorvastatin Calcium (Lipitor*) 20 mg PO QPM [facility] Last Admin: 08/28/19 17:30 Dose: 20 mg Enoxaparin Sodium (Lovenox(*)) 40 mg SUBCUT Q24H [facility] Last Admin: 08/28/19 17:33 Dose: 40 mg Fluoxetine HCl (Prozac Cap*) 20 mg PO QAM [facility] Last Admin: 08/28/19 08:10 Dose: 20 mg Fluoxetine HCl (Prozac Cap*) 40 mg PO QPM [facility] Last Admin: 08/28/19 17:30 Dose: 40 mg Guaifenesin (Robitussin*) 20 ml PO DAILY PRN PRN Reason: CONGESTION Last Admin: 08/27/19 19:20 Dose: 20 ml Levofloxacin (Levaquin Tab*) 750 mg PO Q24H [facility]; Protocol Last Admin: 08/28/19 17:30 Dose: 750 mg Losartan Potassium (Cozaar Tab*) 100 mg PO DAILY [facility] Last Admin: 08/28/19 08:10 Dose: 100 mg Methylprednisolone Sodium Succinate (Solu-Medrol 40 Mg) 40 mg IV Q8H [facility] Last Admin: 08/28/19 16:08 Dose: 40 mg Mirabegron (Myrbetriq (Nf)) 50 mg PO DAILY [facility] Last Admin: 08/28/19 08:10 Dose: 50 mg Mirtazapine (Remeron Tab*) 15 mg PO BEDTIME [facility] Last Admin: 08/27/19 19:20 Dose: 15 mg Mometasone Furoate/Formoterol Fumar (Dulera 200/5 Mdi*) 2 puff INH Q12HR [facility] Last Admin: 08/28/19 07:50 Dose: 2 puff Oxybutynin Chloride (Ditropan Xl Tab*) 10 mg PO DAILY [facility]; Protocol Last Admin: 08/28/19 08:10 Dose: 10 mg Primidone (Mysoline Tab(*)) 250 mg PO BID [facility] Last Admin: 08/28/19 08:10 Dose: 250 mg Solifenacin (Vesicare(Nf)) 10 mg PO DAILY [facility] Last Admin: 08/28/19 08:10 Dose: 10 mg Tiotropium [place] (Spiriva Respimat 2.5 Mcg) 2 puff INH DAILY [facility] Last Admin: 08/28/19 13:44 Dose: 2 puff Vital Signs - 8 hr 08/28/19 08/28/19 08/28/19 10:10 11:03 13:47 Temperature 98.5 F Pulse Rate 70 76 Respiratory 20 16 Rate Blood Pressure 182/64 160/73 (mmHg) O2 Sat by Pulse 97 98 Oximetry Oxygen Devices in Use Now: Nasal Cannula Appearance: Elderly female sitting up in bed, NAD Eyes: No Scleral Icterus Ears/Nose/Mouth/Throat: Mucous Membranes Moist Respiratory: Symmetrical Chest Expansion and Respiratory Effort, Clear to Auscultation Cardiovascular: NL Sounds; No Murmurs; No JVD, RRR, No Edema Abdominal: NL Sounds; No Tenderness; No Distention Extremities: No Clubbing, Cyanosis Skin: No Nodules or Sclerosis Neurological: Alert and Oriented x 3 Result Diagrams: 08/24/19 12:35 08/24/19 12:48 Microbiology and Other Data: Microbiology 08/25/19 12:15 Gram Stain - Final Sputum 08/24/19 12:35 Aerobic Blood Culture - Preliminary Blood Venous No Growth Day 1 Anaerobic Blood Culture - Preliminary No Growth Day 1 08/24/19 12:35 Aerobic Blood Culture - Preliminary Blood Venous No Growth Day 1 Anaerobic Blood Culture - Preliminary No Growth Day 1 Assess/Plan/Problems-Billing Mrs Case is a 74yo F with PMH of Amyotrophic lateral sclerosis, COPD, left kidney malignancy s/p nephrectomy, colon CA, chronic back pain and spasm s/p Baclofen pump, DJD, tobacco abuse, who presented to ED with c/o dyspnea and cough, found to have COPD exacerbation secondary to bronchitis. - Patient Problems (1) COPD exacerbation Current Visit: Yes Status: Acute Code(s): J44.1 - CHRONIC OBSTRUCTIVE PULMONARY DISEASE W (ACUTE) EXACERBATION SNOMED Code(s): 089059334 Comment: Pt with probable COPD based on smoking history. Overall the patient is improving on treatment with solumedrol, nebs and Abx. Likely home tomorrow. (2) Urinary retention Current Visit: Yes Status: Acute Code(s): R33.9 - RETENTION OF URINE, UNSPECIFIED SNOMED Code(s): 467160384 Comment: Will attempt myles removal with post void bladder scans to eval for persistent retention. Pt was recently (about 3 weeks ago) started on vesicare which can cause retention. May consider phone consult with urology to see if vesicare may be cause and if it should be stopped. (3) Amyotrophic lateral sclerosis Current Visit: Yes Status: Acute Code(s): G12.21 - AMYOTROPHIC LATERAL SCLEROSIS SNOMED Code(s): 19100202 Comment: Continue baclofen pump and primidone. (4) Hypertension Current Visit: Yes Status: Acute Code(s): I10 - ESSENTIAL (PRIMARY) HYPERTENSION SNOMED Code(s): 13015981 Comment: BP this AM markedly elevated. Improved with administration of losartan and amlodipine. Continue to follow BPs. (5) Hyperlipidemia Current Visit: Yes Status: Acute Code(s): E78.5 - HYPERLIPIDEMIA, UNSPECIFIED SNOMED Code(s): 39374202 Comment: Continue lipitor. (6) Depression Current Visit: Yes Status: Chronic Code(s): F32.9 - MAJOR DEPRESSIVE DISORDER, SINGLE EPISODE, UNSPECIFIED SNOMED Code(s): 71755150 Comment: Continue prozac. (7) DVT prophylaxis Current Visit: Yes Status: Acute Code(s): Z29.9 - ENCOUNTER FOR PROPHYLACTIC MEASURES, UNSPECIFIED SNOMED Code(s): 308587750 Comment: lovenox (8) DNR (do not resuscitate) Current Visit: Yes Status: Acute Status and Disposition: .
[2019-08-28] MEDS: Mirtazapine TAB* 15 MG PO SCH (20:07)
[2019-08-29] MEDS: Albuterol/Ipratropium NEB.SOL* Albuterol 2.5 MG/Ipratropium 0.5 MG 3 ML INH SCH ×3 (01:34→13:43)
[2019-08-29] MEDS: SPIRIVA Respimat* (tiotropium) 2.5 mcg/inh Inhaler INH SCH (07:32)
[2019-08-29] MEDS: Mometasone/Formoter 200/5 MDI INH SCH (07:32)
[2019-08-29] MEDS: CMC:Solifenacin(NF) 5 MG TAB PO SCH (08:07)
[2019-08-29] MEDS: PTO:Mirabegron (NF) 50 MG TAB PO SCH (08:07)
[2019-08-29] MEDS: Losartan TAB* 25 MG PO SCH (08:08)
[2019-08-29] MEDS: FLUoxetine CAP* 20 MG PO SCH ×2 (08:08→17:06)
[2019-08-29] MEDS: Aspirin EC TAB* 81 MG TAB.EC PO SCH (08:08)
[2019-08-29] MEDS: Oxybutynin XL TAB* 5 MG PO SCH (08:08)
[2019-08-29] MEDS: Primidone TAB(*) 250 MG PO SCH (08:08)
[2019-08-29] MEDS: guaiFENesin 100 mg/5 ml LIQ unit dose cup PO PRN (08:12)
[2019-08-29] MEDS ORDERED: predniSONE TAB* 20 MG PO SCH (09:00)
[2019-08-29 16:11] VITALS: BP 148/66
[2019-08-29] MEDS: amLODIPine TAB* 5 MG PO SCH (17:05)
[2019-08-29] MEDS: Atorvastatin* 20 MG TAB PO SCH (17:06)
[2019-08-29] MEDS: Levofloxacin TAB* 750 MG PO SCH (17:06)
--- NOTE | 2019-08-29 23:02 | DS ---
CC: Dr. Winston * DISCHARGE SUMMARY: DATE OF ADMISSION: 08/24/19 DATE OF DISCHARGE: 08/29/19 PRIMARY CARE PROVIDER: Dr. Winston. PRINCIPAL DIAGNOSES: 1. Chronic obstructive pulmonary disease exacerbation likely secondary to bronchitis. 2. Urinary retention. SECONDARY DIAGNOSES: 1. Amyotrophic lateral sclerosis. 2. Chronic pain and back spasms. 3. Tobacco abuse. DISCHARGE MEDICATIONS: 1. Incruse Ellipta 1 puff inhale daily. 2. Serevent 1 puff inhale b.i.d. 3. Lipitor 20 mg p.o. q.h.s. 4. Aspirin 81 mg p.o. daily. 5. Amlodipine 10 mg p.o. q.p.m. 6. Detrol LA 4 mg p.o. daily. 7. Primidone 250 mg p.o. b.i.d. 8. Remeron 15 mg p.o. q.h.s. 9. Myrbetriq 50 mg p.o. daily. 10. Losartan 100 mg p.o. daily. 11. Prozac 20 mg p.o. q.a.m., 40 mg p.o. q.p.m. 12. Colace 100 mg p.o. b.i.d. p.r.n. constipation. 13. Vitamin B12 2500 mcg p.o. daily. 14. DuoNeb 1 neb inhale q.6 hours p.r.n. shortness of breath. 15. Guaifenesin 400 mg p.o. daily p.r.n. cough. 16. Prednisone 40 mg p.o. daily x2 days, 30 mg x2 days, 20 mg x2 days, 10 mg x2 days. 17. Levaquin 750 mg p.o. daily x3 days. HOSPITAL COURSE: Ms. Augustin is a 74-year-old female with a history of ALS, COPD and ongoing tobacco abuse, who presents to the emergency room with complaints of shortness of breath, wheeze and weakness. The patient had contacted her PCP for antibiotic therapy as she developed cold like symptoms. She was prescribed doxycycline, which she had taken 3 doses of. The patient became so weak. She was unable to stand and transfer as she typically does. Because of this, the patient was admitted to the hospital for treatment of COPD exacerbation likely secondary to bronchitis. The patient has had progressive improvement in her respiratory status. She has been treated with antibiotic therapy, changed to Levaquin a couple days ago and will complete 3 more days of Levaquin therapy at home. She was treated with IV Solu-Medrol and nebulizers. At this point, her breathing is comfortable. She is not having any wheezing and it does not sound tight on exam. The patient has been evaluated by physical therapy with her aide present. It is felt that the patient's mobility status is essentially back to baseline and she is going to be able to be transfer herself at home, which was one of the issues that her aide had previously. The patient as above will complete 3 more days of Levaquin as well as 8 day taper of prednisone. The patient was also found to have urinary retention. Her aide tells me that she had been started on VESIcare approximately 3 weeks ago and since that time has been having a difficult time urinating. VESIcare can cause urinary retention; therefore, this medication was discontinued on discharge. The patient had a Miller catheter early during her hospitalization, though this was discontinued the night prior to discharge. At this time, the patient is felt to be stable for discharge home. She again is breathing comfortably on her usual 2 L of oxygen and able to transfer herself successfully with minimal assistance. PHYSICAL EXAMINATION: On exam, the patient is awake, alert, and oriented, sitting up in bed. Her cardiac exam reveals a normal S1, S2. Heart rate is regular. There is no lower extremity edema. Pulmonary exam reveals clear lungs bilaterally with improved air movement to the bases. Abdomen is soft, nontender , nondistended. FOLLOWUP CONCERNS: The patient is being discharged home today, 08/29/19. Activity level is as tolerated. Diet is regular. Condition on discharge is stable. TIME SPENT: Thirty five minutes was spent discharging this patient. [id number]/[facility] #: [id number] TYLER
== END 2019-08-29 17:30 | disposition home health service (06) | DRG 190 ==
LOC: ED 11:59 → MED 17:26
PROVIDERS: ADMIT Internal Medicine; ATTEND Hospitalist
PROC: 0T9B70Z Drainage of Bladder with Drainage Device, Via Natural or Artificial Opening (ICD-10-PCS; principal; 2019-08-27)
DX: J43.9 Emphysema, unspecified (principal); R53.2 Functional quadriplegia; J96.21 Acute and chronic respiratory failure with hypoxia; G12.21 Amyotrophic lateral sclerosis; Z88.6 Allergy status to analgesic agent; M19.90 Unspecified osteoarthritis, unspecified site; F17.210 Nicotine dependence, cigarettes, uncomplicated; G25.0 Essential tremor; M62.838 Other muscle spasm; J40 Bronchitis, not specified as acute or chronic; G89.29 Other chronic pain; R33.9 Retention of urine, unspecified; Z66 Do not resuscitate; E27.9 Disorder of adrenal gland, unspecified; M54.9 Dorsalgia, unspecified; F41.9 Anxiety disorder, unspecified; J84.10 Pulmonary fibrosis, unspecified; E78.5 Hyperlipidemia, unspecified; F32.9 Major depressive disorder, single episode, unspecified; I10 Essential (primary) hypertension; T44.3X5A Adverse effect of other parasympatholytics [anticholinergics and antimuscarinics] and spasmolytics, initial encounter; Y92.9 Unspecified place or not applicable; Z95.5 Presence of coronary angioplasty implant and graft; Z90.711 Acquired absence of uterus with remaining cervical stump; Z98.42 Cataract extraction status, left eye; Z98.41 Cataract extraction status, right eye; Z81.8 Family history of other mental and behavioral disorders; Z85.528 Personal history of other malignant neoplasm of kidney; Z85.828 Personal history of other malignant neoplasm of skin; Z85.038 Personal history of other malignant neoplasm of large intestine; Z79.82 Long term (current) use of aspirin; Z85.3 Personal history of malignant neoplasm of breast; Z88.5 Allergy status to narcotic agent; Z90.5 Acquired absence of kidney; Z92.3 Personal history of irradiation; Z99.81 Dependence on supplemental oxygen
CPT/HCPCS: 36415; 36600; 71045; 71275; 80053; 81003; 81015; 82150; 82550; 82553; 82803; 83605; 83690; 83880; 84484; 85025; 85379; 85610; 85730; 86140; 87040; 87070; 87077; 87086; 87186; 87205; 93005; 93970; 94640; 96374; 99284; 99406; A9270-GY; G8978-GP-CK; G8978-GP-CL; G8979-GP-CJ; G8979-GP-CK; J0456; J0696; J1650; J2920; J2930; J3535; J7512; J7611; Q9967

== ENCOUNTER 2019-09-19 20:32 | Inpatient (IN) | payer MEDICARE, OTHER ==
[2019-09-19] MEDS ORDERED: Albuterol/Ipratropium NEB.SOL* Albuterol 2.5 MG/Ipratropium 0.5 MG 3 ML INH ONE (21:05)
--- NOTE | 2019-09-19 21:15 | ED ---
Adult Trauma - HPI Summary HPI Summary: Patient complains of left hip pain status post fall. 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 Daughter states she was helping patient up from the toilet when patient started to fall. Daughter assisted patient to the ground awkwardly, states patient complained of left hip pain afterwards. Daughter states patient baseline weakness worse when patient ill. Patient has history of productive cough times a few days, recently diagnosed with bronchitis/possible pneumonia per PCP without chest x- ray. Started on azithromycin and prednisone yesterday. Denies known fever, sore throat, BELLA, ear pain, CP, SOB, N/V/D, abdominal pain, change in urine, change in BM. Medical history is COPD with home O2 at 2 L when necessary and at night, chronic back pain, ACL, single kidney, HTN, PLS. - History of Current Complaint Chief Complaint: EDFall Stated Complaint: DIFFICULTY BREATHING PER EMS Time Seen by Provider: 09/19/19 20:46 Hx Obtained From: Patient, Family/Jewelry Jobber Mechanism of Injury: Fall Ambulatory at the Scene: No Loss of Consciousness: no loss of consciousness Onset/Duration: Started Minutes Ago Onset of Pain: Immediate Onset Severity: Mild Current Severity: Mild Pain Intensity: 3 Pain Scale Used: 0-10 Numeric Location: Extremities Aggravating Factor(s): Nothing Alleviating Factor(s): Nothing Associated Signs & Symptoms: Positive: Cough - Additional Pertinent History Primary Care Physician: STEVE - Allergy/Home Medications Allergies/Adverse Reactions: Allergies Allergy/AdvReac Type Severity Reaction Status Date / Time codeine Allergy Nausea Verified 06/30/19 18:39 Home Medications: Home Medications Albuterol/Ipratropium NEB.MADINA* [Duoneb (Albuterol 2.5 MG/Ipratropium 0.5 MG)] 1 neb INH Q6H PRN 09/19/19 [History Confirmed 09/19/19] Azithromycin TAB* [Zithromax TAB (Z-GAYATHRI) 250 mg #6 tabs] 2 tab PO .TODAY, THEN 1 DAILY 09/19/19 [History Confirmed 09/19/19] Docusate CAP* [Colace Cap*] 100 mg PO BID PRN 09/19/19 [History Confirmed ] predniSONE TAB* [Deltasone 20 MG TAB*] 60 mg PO DAILY 09/19/19 [History Confirmed 09/19/19] PMH/Surg Hx/FS Hx/Imm Hx Endocrine/Hematology History: Denies: Hx Anticoagulant Therapy Cardiovascular History: Reports: Hx Coronary Artery Disease, Hx Hypercholesterolemia, Hx Hypertension, Other Cardiovascular Problems/Disorders - heart cath and stent Denies: Hx Auto Implanted Cardiovert Defib Respiratory History: Reports: Hx Asthma, Hx Chronic Obstructive Pulmonary Disease (COPD) GI History: Denies: Hx Gastroesophageal Reflux Disease Musculoskeletal History: Reports: Hx Arthritis, Hx Back Problems, Other Musculoskeletal History - implanted baclofen pump for pain, LLQ Sensory History: Denies: Hx Contacts or Glasses, Hx Hearing Aid Opthamlomology History: Denies: Hx Contacts or Glasses Neurological History: Reports: Other Neuro Impairments/Disorders - lateral sclerosis Denies: Hx Transient Ischemic Attacks (TIA) - Cancer History Cancer Type, Location and Year: colon CA. right breast CA. skin CA - Surgical History Surgery Procedure, Year, and Place: Partial Hysterectomy-still has uterus 1996, Disc Surgery-lower spine 1980, Cyst removal-rectum 1981, Baclofen pump implant 1996, Carpal tunnel 1996, Bladder repair 1998, Carpal tunnel and ulnar nerve in arm 1998, Baclofen pump replacement 2001, Cataract - left eye 2003, Colon resection for cancer 2006, Cataract - right eye 2007, Lumpectomy - right breast for CA 2010, Heart catheterization and stent impant 2010, Baclofen pump replacement 2013, Left kidney removal for cancer, Left Arm Ulnar Nerve 2014, Skin Cancer - Radiation treatment 2017. Infectious Disease History: No Infectious Disease History: Denies: Traveled Outside the [place] in Last 30 Days - Family History Known Family History: Positive: Other - positive: father committed suicide, father had CA - Social History Alcohol Use: None Substance Use Type: Reports: None Hx Tobacco Use: Yes Smoking Status (MU): Heavy Every Day Tobacco Smoker Type: Cigarettes Have You Smoked in the Last Year: Yes Review of Systems Constitutional: Negative Eyes: Negative ENT: Negative Cardiovascular: Negative Respiratory: Negative Gastrointestinal: Negative Genitourinary: Negative Musculoskeletal: Other Skin: Negative Neurological: Negative Psychological: Normal All Other Systems Reviewed And Are Negative: Yes Physical Exam - Summary Physical Exam Summary: Legs of equal length. Patient able to flex and extend bilateral ankles, knees and hips. No pain with palpation of bilateral hips. Abdomen soft nontender. No trauma noted to mouth, face, head. Neuro exam normal. Full range of motion of neck and jaw. No pain with palpation of neck, back, chest. Patient moving all 4 extremities freely without indication of pain. On room air patient O2 sats 90-91%. Home health aide who sees patient 5 days a week states patient baseline O2 sats on room air 88-92%. Patient placed on 2 L here in the ED as she normally wears 2 L when she sleeps at night. Lung sounds clear to auscultation bilaterally. Triage Information Reviewed: Yes Vital Signs On Initial Exam: Initial Vitals Temp Pulse Resp BP Pulse Ox 98.3 F 91 19 179/78 94 09/19/19 20:33 09/19/19 20:33 09/19/19 20:33 09/19/19 20:33 09/19/19 20:33 Vital Signs Reviewed: Yes Appearance: Positive: Well-Appearing Skin: Positive: Warm Head/Face: Positive: Normal Head/Face Inspection Eyes: Positive: Normal ENT: Positive: Normal ENT inspection Dental: Negative: Dental Fracture @, Bleeding Neck: Positive: Supple Respiratory/Lung Sounds: Positive: Clear to Auscultation Cardiovascular: Positive: Normal Abdomen Description: Positive: Nontender Musculoskeletal: Positive: Normal Neurological: Positive: Normal Psychiatric: Positive: Normal AVPU Assessment: Alert - Ishaan Coma Scale Best Eye Response: 4 - Spontaneous Best Motor Response: 6 - Obeys Commands Best Verbal Response: 5 - Oriented Coma Scale Total: 15 Procedures - Sedation Patient Received Moderate/Deep Sedation with Procedure: No Diagnostics - Vital Signs Vital Signs Temp Pulse Resp BP Pulse Ox 09/19/19 20:33 98.3 F 91 19 179/78 94 - Laboratory Result Diagrams: 09/20/19 08:18 09/20/19 08:18 Lab Statement: Any lab studies that have been ordered have been reviewed, and results considered in the medical decision making process. Adult Trauma Course/Dx - Course Course Of Treatment: Patient complains of left hip pain status post fall. 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 Daughter states she was helping patient up from the toilet when patient started to fall. Daughter assisted patient to the ground awkwardly, states patient complained of left hip pain afterwards. Daughter states patient baseline weakness worse when patient ill. Patient has history of productive cough times a few days, recently diagnosed with bronchitis/possible pneumonia per PCP without chest x-ray. Started on azithromycin and prednisone yesterday. Denies known fever, sore throat, BELLA, ear pain, CP, SOB, N/V/D, abdominal pain , change in urine, change in BM. Medical history is COPD with home O2 at 2 L when necessary and at night, chronic back pain, ACL, single kidney, HTN, PLS. Vital signs within normal limits. First troponin 0.18. Second troponin 0.14. Labs otherwise unremarkable. Chest x-ray unremarkable. CT chest unremarkable. Left hip x-ray negative for fracture. EKG sinus rhythm, heart rate of 88, normal P axis. Same as prior. Patient admitted to hospitalist with elevated troponins. - Diagnoses Provider Diagnoses: Elevated troponin, Fall Discharge ED - Sign-Out/Discharge Documenting (check all that apply): Patient Departure - Discharge Plan Condition: Stable Disposition: ADMITTED TO [facility] - Billing Disposition and Condition Condition: STABLE Disposition: Admitted to [facility]
[2019-09-19 21:39] LABS: ALT 17 U/L (7-52); AST 17 U/L (13-39); Albumin 3.6 g/dL (3.2-5.2); Alkaline Phosphatase 76 U/L (34-104); Anion Gap 8 mmol/L (2-11); BUN/Creatinine Ratio 16.9 (8-20); Blood Urea Nitrogen 15 mg/dL (6-24); C Reactive Protein 27.27 mg/L (<8.01); CO2 Carbon Dioxide 23 mmol/L (22-32); Calcium 8.8 mg/dL (8.6-10.3); Chloride 103 mmol/L (101-111); Globulin 3.5 g/dL (2-4); Glucose 146 mg/dL (70-100); Potassium 3.8 mmol/L (3.5-5.0); Sodium 134 mmol/L (135-145); Total Protein 7.1 g/dL (6.4-8.9)
[2019-09-19 21:43] LABS: Troponin I 0.18 ng/mL (<0.04)
[2019-09-19 21:55] LABS: ABS Basophils 0.1 10^3/ul (0-0.2); ABS Eosinophils 0.5 10^3/ul (0-0.6); ABS Lymphocytes 1.2 10^3/ul (1.0-4.8); ABS Monocytes 0.6 10^3/ul (0-0.8); ABS Neutrophils 7.3 10^3/ul (1.5-7.7); Eosinophil % 4.8 %; Hematocrit 37 % (35-47); Hemoglobin 12.2 g/dL (12.0-16.0); Lymphocyte % 12.7 %; Mean Corpuscular HGB Conc 33 g/dL (31-36); Mean Corpuscular Hemoglobin 30 pg (27-31); Mean Corpuscular Volume 91 fL (80-97); Platelet Count 432 10^3/uL (150-450); Red Blood Count 4.07 10^6 /uL (3.70-4.87); Red Cell Distribution Width 16 % (10-15); White Blood Count 9.7 10^3/uL (3.5-10.8)
[2019-09-19 22:16] LABS: TSH (Thyroid Stimulating Horm) 1.02 mcIU/mL (0.34-5.60)
[2019-09-19] MEDS ORDERED: Iodixanol* (CONTRAST) 320 MG/ML 100 ML SDV IV ONE (23:10)
[2019-09-20 00:49] LABS: Urine Appearance Clear; Urine Bilirubin Negative (Negative); Urine Blood Negative (Negative); Urine Color Straw; Urine Glucose Negative (Negative); Urine Ketones Negative (Negative); Urine Nitrite Negative (Negative); Urine Protein Negative (Negative); Urine Specific Gravity 1.011 (1.010-1.030); Urine Urobilinogen Negative (Negative)
[2019-09-20 00:51] LABS: Troponin I 0.14 ng/mL (<0.04)
[2019-09-20] MEDS ORDERED: NS 0.9% 1000 ML** 1,000 ML IV SCH (03:00)
[2019-09-20] MEDS ORDERED: Docusate CAP* 100 MG PO PRN (03:17)
[2019-09-20] MEDS ORDERED: guaiFENesin ER TAB 600 MG PO PRN (03:17)
[2019-09-20 03:44] LABS: Troponin I 0.13 ng/mL (<0.04)
[2019-09-20] MEDS ORDERED: Azithromycin TAB* 250 MG PO ONE (04:00)
[2019-09-20] MEDS: Enoxaparin(*) 40 MG/0.4 ML SYR SUBCUT SCH (04:15)
[2019-09-20] MEDS: Albuterol/Ipratropium NEB.SOL* Albuterol 2.5 MG/Ipratropium 0.5 MG 3 ML INH PRN ×2 (05:36→16:47)
--- NOTE | 2019-09-20 06:24 | HP ---
CC: Dr. Cinthia Winston HISTORY AND PHYSICAL: DATE OF ADMISSION: 09/20/19 PRIMARY CARE PHYSICIAN: Dr. Cinthia Winston. CHIEF COMPLAINT: Fall. HISTORY OF PRESENT ILLNESS: This is a 74-year-old female with past medical history of primary latera l sclerosis, is functionally quadriplegic; COPD with active smoking history and nighttime on 2 L of o xygen; chronic muscle cramps with baclofen pump; essential tremor; arthritis; left kidney cancer, sta tus post nephrectomy in 2017; right breast cancer, status post resection; bilateral cataract surgery, who came in after a fall. The patient was in her usual state of health up until yesterday when she was having coughing spells and wheezing, was seen by Dr. Winston at home, who started on prednisone an d azithromycin and daughter was taking her to the bathroom at which point, the patient who normally c an lift herself and pivot, suddenly lost all power in her legs and fell and hit her bottom. She neve r had any head trauma. Denies any chest pain for concern for any infection as the patient does have history of worsening lower extremity weakness with infections. The primary care physician suggested the patient come to the ER. Upon arrival, the patient denied any symptoms such as abdominal pain, na usea, vomiting, diarrhea, any urinary or burning sensation, or pain with urination, any cough or shor tness of breath. She did have a coughing spell earlier and had some mild chest pain, but denies any chest pain during my evaluation. PAST MEDICAL HISTORY: As mentioned, primary lateral sclerosis with functional quadriplegia; COPD, on 2 L nasal cannula and still an active smoker; left kidney cancer, status post nephrectomy; colon can cer surgery; chronic spasms and back pain, status post baclofen pump; osteoarthritis; radiation for s kin cancer; and chronic urinary incontinence. HOME MEDICATIONS: The patient is currently on: 1. Prednisone 15 mg oral daily. 2. Azithromycin 250 mg oral daily. 3. Aspirin 81 mg oral daily. 4. Prozac 20 mg in the morning and 40 mg at night. 5. Colace 100 mg p.o. b.i.d. p.r.n. 6. Vitamin B12 2500 mcg oral daily. 7. Atorvastatin 20 mg every evening. 8. Amlodipine 10 mg every evening. 9. Incruse Ellipta 1 inhalation daily. 10. Tolterodine 4 mg oral daily. 11. Formoterol 1 puff by inhalation b.i.d. 12. Primidone 250 mg p.o. b.i.d. 13. Remeron 15 mg p.o. at bedtime. 14. Myrbetriq 50 mg oral daily. 15. Losartan 100 mg oral daily. 16. Guaifenesin 400 mg daily p.r.n. 17. DuoNeb q.6 hours p.r.n. ALLERGIES: The patient is allergic to CODEINE, which causes nausea. FAMILY HISTORY: Mother is alive at age 95. Father of a cancer, which he was never disclosed wi th the family, but he committed suicide. She has a sister and 2 brothers who are both healthy. SOCIAL HISTORY: She is retired from working in [employer]. Denies any alcohol use. She has a 1 pack per day history of smoking for the last 60 years. She lives by herself. Has a MOLST fo rm that she filled out and she still wishes to be DNR/DNI and no feeding tube. Her daughter, who was present at bedside, Edith, is her healthcare proxy. The patient does have 24-hour care. REVIEW OF SYSTEMS: A 14-point review of systems did not reveal any information other than the ones m entioned in the HPI. PHYSICAL EXAMINATION GENERAL: The patient is awake, alert, and oriented x3, did not appear to be in any acute respiratory distress. VITAL SIGNS: BP was noted to be 134/63, heart rate 78, respiratory rate 14, saturating 98% on 2 to 3 L of nasal cannula. Temperature max was recorded at 98.3 in the ER. HEAD AND NECK: Atraumatic and normocephalic. Bilateral pupils are reactive. Oral mucosa was moist. NECK: Supple. No jugular venous distention. LUNGS: Clear to auscultation bilaterally. No wheezing, no rhonchi, or rales. HEART: S1, S2. Regular rate and rhythm. ABDOMEN: Soft, nontender and nondistended. EXTREMITIES: No cyanosis, clubbing, or edema. DIAGNOSTIC STUDIES/LABORATORY DATA: CBC was unremarkable. Comprehensive metabolic panel was unrema rkable except for minimally elevated glucose at 146. Troponin was minimally elevated at 0.18 and sta rted trending down to 0.14. Urinalysis was negative. Hip x-ray did not show any obvious fracture. Official read by radiologist is still pending. CTA of the chest shows stable mild centrilobular emph ysema. There is increasing bibasilar and bilateral dependent atelectatic changes or scarring. I can not exclude component of right lower lobe pneumonitis. No visible acute pulmonary embolism. EKG show ed sinus rhythm at 88 beats per minute when compared to her older EKG from July. There was esse ntially not a difference in the waveform. IMPRESSION: This is a 74-year-old female, here due to a fall and incidentally was noted to have mini david elevated troponin. ASSESSMENT AND PLAN: 1. Elevated troponin of unclear etiology. We will get serial troponin and echocardiogram. We will consider Cardiology consult in the morning to see if a stress test is warranted in this individual. 2. History of chronic obstructive pulmonary disease exacerbation. We will continue the dose of pred nisone and DuoNeb as needed along with Zithromax. 3. History of primary lateral sclerosis with functional quadriplegia and chronic muscle cramps, stat us post baclofen pump. 4. History of depression. 5. History of hypertension, restarted on BP medications. 6. History of left kidney cancer, status post nephrectomy. 7. DVT prophylaxis with Lovenox. 8. Code status is DNR/DNI. [id number]/CPS #: [id number]
[2019-09-20] MEDS: SPIRIVA Respimat* (tiotropium) 2.5 mcg/inh Inhaler INH SCH (07:55)
[2019-09-20 08:38] LABS: ABS Basophils 0.1 10^3/ul (0-0.2); ABS Eosinophils 0.3 10^3/ul (0-0.6); ABS Lymphocytes 1.7 10^3/ul (1.0-4.8); ABS Monocytes 0.6 10^3/ul (0-0.8); ABS Neutrophils 6.5 10^3/ul (1.5-7.7); Hematocrit 38 % (35-47); Hemoglobin 12.6 g/dL (12.0-16.0); Lymphocyte % 18.5 %; Mean Corpuscular HGB Conc 33 g/dL (31-36); Mean Corpuscular Hemoglobin 30 pg (27-31); Mean Corpuscular Volume 91 fL (80-97); Mean Platelet Volume 7.1 fL (7.4-10.4); Nucleated Red Blood Cells % 0.1; Platelet Count 438 10^3/uL (150-450); Red Blood Count 4.18 10^6 /uL (3.70-4.87); Red Cell Distribution Width 16 % (10-15); White Blood Count 9.1 10^3/uL (3.5-10.8)
[2019-09-20 08:54] LABS: BUN/Creatinine Ratio 17.9 (8-20); Calcium 9.1 mg/dL (8.6-10.3); EGFR African American 87.4 (>60); EGFR Non-African American 72.2 (>60); HDL Cholesterol 99.5 mg/dL; Potassium 4.1 mmol/L (3.5-5.0)
[2019-09-20] MEDS ORDERED: predniSONE TAB* 20 MG PO SCH (09:00)
[2019-09-20] MEDS: Aspirin EC TAB* 81 MG TAB.EC PO SCH (09:26)
[2019-09-20] MEDS: PTO: Mirabegron (NF) 50 MG TAB PO SCH (09:26)
[2019-09-20] MEDS: Primidone TAB(*) 250 MG PO SCH ×2 (09:27→20:39)
[2019-09-20] MEDS: Cyanocobalamin TAB* 500 MCG PO SCH (09:27)
[2019-09-20] MEDS: Oxybutynin XL TAB* 5 MG PO SCH (09:27)
[2019-09-20] MEDS: FLUoxetine CAP* 20 MG PO SCH ×2 (09:29→17:42)
[2019-09-20] MEDS: Losartan TAB* 25 MG PO SCH (09:30)
--- NOTE | 2019-09-20 10:34 | CONSULT ---
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 She relatively recently moved from [facility]. The patient fell in the bathroom, mechanical fall, no LOC. Troponins in ED elevated. Per pt stented CA about 8+ years ago, angina was CLEMENTE. Pt denies SOB, neck, jaw or arm pain or SOB. Her caregiver was present and stated that the pt had RA pain 2 days prior (at rest) and has been coughing for several days. The patient was admitted 2 weeks ago for respiratory infection, on return home had red streak LLE and it was painful to cough in abdomen and leg. Family History: Findings - Mother alive 95, father hx cancer, suicide. Siblings healthy. 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 No recreational drug use. Past Medical History: Unchanged from Admission - Primary lateral sclerosis, CAD , COPD, kidney CA, colon CA, OA, back spasm, urinary incontinance, functional quadrapalegia. Medications Active Medications: Albuterol/Ipratropium (Duoneb (Albuterol 2.5 Mg/Ipratropium 0.5 Mg)) 1 neb INH Q6H PRN PRN Reason: SHORTNESS OF BREATH Last Admin: 09/20/19 05:36 Dose: 1 neb Amlodipine Besylate (Norvasc Tab*) 10 mg PO QPM [facility] Aspirin (Aspirin Ec Tab*) 81 mg PO DAILY [facility] Last Admin: 09/20/19 09:26 Dose: 81 mg Atorvastatin Calcium (Lipitor*) 20 mg PO QPM [facility] Azithromycin (Zithromax Tab*) 250 mg PO DAILY [facility] Stop: 09/24/19 09:01 Cyanocobalamin (Vitamin B12 Tab*) 2,500 mcg PO DAILY [facility] Last Admin: 09/20/19 09:27 Dose: 2,500 mcg Docusate Sodium (Colace Cap*) 100 mg PO BID PRN PRN Reason: CONSTIPATION Enoxaparin Sodium (Lovenox(*)) 40 mg SUBCUT Q24H [facility] Last Admin: 09/20/19 04:15 Dose: 40 mg Fluoxetine HCl (Prozac Cap*) 20 mg PO QAM [facility] Last Admin: 09/20/19 09:29 Dose: 20 mg Fluoxetine HCl (Prozac Cap*) 40 mg PO QPM [facility] Guaifenesin (Mucinex*) 600 mg PO DAILY PRN PRN Reason: CONGESTION Losartan Potassium (Cozaar Tab*) 100 mg PO DAILY [facility] Last Admin: 09/20/19 09:30 Dose: 100 mg Mirabegron (Myrbetriq (Nf)) 50 mg PO DAILY [facility] Last Admin: 09/20/19 09:26 Dose: 50 mg Mirtazapine (Remeron Tab*) 15 mg PO BEDTIME [facility] Olodaterol (Striverdi Respimat) 2 puff INH DAILY [facility]; Protocol Oxybutynin Chloride (Ditropan Xl Tab*) 5 mg PO DAILY [facility]; Protocol Last Admin: 09/20/19 09:27 Dose: 5 mg Prednisone (Deltasone Tab*) 60 mg PO DAILY [facility] Last Admin: 09/20/19 09:28 Dose: 60 mg Primidone (Mysoline Tab(*)) 250 mg PO BID [facility] Last Admin: 09/20/19 09:27 Dose: 250 mg Tiotropium [place] (Spiriva Respimat 2.5 Mcg) 2 puff INH DAILY [facility] Last Admin: 09/20/19 07:55 Dose: 2 puff Home Medications: Atorvastatin* [Lipitor 20 MG*] 20 mg PO QPM 05/15/19 [History Confirmed 09/19/19 ] Mirabegron (NF) [Myrbetriq (NF)] 50 mg PO DAILY 05/15/19 [History Confirmed ] Primidone TAB(*) [Mysoline TAB(*)] 250 mg PO BID 05/15/19 [History Confirmed ] Tolterodine LA (NF) [Detrol LA (NF)] 4 mg PO DAILY 05/15/19 [History Confirmed 09/19/19] Aspirin EC TAB* [Ecotrin EC Low Dose 81 MG*] 81 mg PO DAILY 06/12/19 [History Confirmed 09/19/19] Cyanocobalamin (Vitamin B-12) [Vitamin B12] 2,500 mcg PO DAILY 06/12/19 [ History Confirmed 09/19/19] FLUoxetine CAP* [Prozac CAP*] 20 mg PO QAM 06/12/19 [History Confirmed 09/19/19] FLUoxetine CAP* [Prozac CAP*] 40 mg PO QPM 06/12/19 [History Confirmed 09/19/19] Losartan TAB* [Cozaar TAB*] 100 mg PO DAILY 06/12/19 [History Confirmed 09/19/19 ] amLODIPine TAB* [Norvasc 5 mg TAB*] 10 mg PO QPM 06/12/19 [History Confirmed ] Mirtazapine TAB* [Remeron TAB*] 15 mg PO BEDTIME 06/30/19 [History Confirmed ] Salmeterol DISKUS (NF) [Serevent Diskus (NF)] 1 puff INH BID 08/24/19 [History Confirmed 09/19/19] Umeclidinium 62.5 MDI(NF) [Incruse ELLIPTA MDI (NF)] 1 inh INH DAILY 08/24/19 [ History Confirmed 09/19/19] guaiFENesin [Guaifenesin] 400 mg PO DAILY PRN #0 08/24/19 [History Confirmed ] Albuterol/Ipratropium NEB.MADINA* [Duoneb (Albuterol 2.5 MG/Ipratropium 0.5 MG)] 1 neb INH Q6H PRN 09/19/19 [History Confirmed 09/19/19] Azithromycin TAB* [Zithromax TAB (Z-GAYATHRI) 250 mg #6 tabs] 2 tab PO .TODAY, THEN 1 DAILY 09/19/19 [History Confirmed 09/19/19] Docusate CAP* [Colace Cap*] 100 mg PO BID PRN 09/19/19 [History Confirmed ] predniSONE TAB* [Deltasone 20 MG TAB*] 60 mg PO DAILY 09/19/19 [History Confirmed 09/19/19] Review of Systems - Measurements Intake and Output: Intake and Output Last 24 Hours 09/18/19 09/19/19 09/20/19 09/21/19 04:59 04:59 04:59 04:59 Weight 138 lb - Review of Systems General Comments: Recent cough, right arm pain and LLE pain and redness. Chronic orthopnea, uses a hospital bed. Review of Systems Statement: All other review of systems negative, unless stated above. Objective Vital Signs: Temp Pulse Resp BP Pulse Ox 97.5 F 72 18 138/66 93 09/20/19 07:15 09/20/19 07:15 09/20/19 07:15 09/20/19 07:15 09/20/19 07:15 Oxygen Devices in Use Now: Nasal Cannula Appearance: older woman, mildly overweight in hospital bed, 40degrees, talking iwht family, comfortable. Eyes: No Scleral Icterus, PERRLA Ears/Nose/Mouth/Throat: Mucous Membranes Moist Neck: NL Appearance and Movements; NL JVP Respiratory: Symmetrical Chest Expansion and Respiratory Effort - Diffuse rhonci , no wheezing or rales. Cardiovascular: NL Sounds; No Murmurs; No JVD, RRR Abdominal: NL Sounds; No Tenderness; No Distention Extremities: No Clubbing, Cyanosis - trace edema, symetrical in size, non tender , no cording. Skin: No Rash or Ulcers Neurological: Alert and Oriented x 3 - speech mildly slurred, marked motor dysfunciton, formal exam not performed. Lines/Tubes/Other Access: Clean, Dry and Intact Peripheral IV Laboratory Results: 09/19/19 21:13 09/19/19 21:13 Total Bilirubin 0.20 mg/dL (0.2-1.0) 09/19/19 21:13 AST 17 U/L (13-39) 09/19/19 21:13 ALT 17 U/L (7-52) 09/19/19 21:13 Alkaline Phosphatase 76 U/L (34-104) 09/19/19 21:13 Total Protein 7.1 g/dL (6.4-8.9) 09/19/19 21:13 Albumin 3.6 g/dL (3.2-5.2) 09/19/19 21:13 Globulin 3.5 g/dL (2-4) 09/19/19 21:13 Albumin/Globulin Ratio 1.0 (1-3) 09/19/19 21:13 Triglycerides 73 mg/dL 09/20/19 08:18 Cholesterol 177 mg/dL 09/20/19 08:18 LDL Cholesterol 63 mg/dL 09/20/19 08:18 HDL Cholesterol 99.5 mg/dL 09/20/19 08:18 TSH 1.02 mcIU/mL (0.34-5.60) 09/19/19 21:13 09/19/19 09/20/19 21:13 00:23 Troponin I 0.18 H* 0.14 H* Diagnostic Imaging: Patient Name: BELA HERRERA Medical Record#: [id number] Ordering Physician: Andrae ARRIETA Acct.#: [id number] : 1945 Age: 74 Sex: F Location: EMERGENCY DEPARTMENT Exam Date: 09/19/192255 ADM Status: REG ER Order Information: CTA CHEST Accession Number: [id number] CPT: 84061 PROCEDURE INFORMATION: Exam: CT Angiography Chest With Contrast Exam date and time: 09/19/2019 11:29 PM Clinical history: 74 years old, female; Shortness of breath; Additional info: Elevated troponin, SOB TECHNIQUE: Imaging protocol: Computed tomographic angiography of the chest with intravenous contrast. 3D rendering: MIP reconstructed images were created and reviewed. Radiation optimization: All CT scans at this facility use at least one of these dose optimization techniques: automated exposure control; mA and/or kV adjustment per patient size (includes targeted exams where dose is matched to clinical indication); or iterative reconstruction. Contrast material: VISI; Contrast volume: 67 ml; Contrast route: IV; COMPARISON: CTA CHEST CTA CHEST 08/24/2019 2:19 PM FINDINGS: Pulmonary arteries: No visible acute pulmonary embolism. Aorta: Unremarkable. No aortic aneurysm. No aortic dissection. Lungs: Stable mild centrilobular emphysema. There is increase bibasilar and bilateral dependent atelectatic change or scarring, cannot exclude a component of right lower lobe pneumonitis. Pleural space: Unremarkable. No pneumothorax. No pleural effusion. Heart: Stable atherosclerotic aortic and coronary artery calcifications. Diaphragm: Stable relative elevation of the right hemidiaphragm. Gallbladder and bile ducts: Stable cholelithiasis without pericholecystic inflammatory change. Adrenals: Stable lipid rich bilateral adrenal adenomas. Stomach and bowel: Stable postoperative changes of the bowel in the upper abdomen. Lymph nodes: Unremarkable. No enlarged lymph nodes. Bones/joints: Stable diffuse osteopenia and degenerative changes of the spine. Soft tissues: Unremarkable. IMPRESSION: 1. Stable mild centrilobular emphysema. 2. There is increase bibasilar and bilateral dependent atelectatic change or scarring, cannot exclude a component of right lower lobe pneumonitis. 3. No visible acute pulmonary embolism. To contact [facility] with a general question: [facility] - [phone] For direct physician to physician contact: Physician Hotline - [phone] [facility] ([facility] Facility ID #[id number]) <Electronically signed by Robles Rodriguez MD in OV> 09/20/19 0027 This report is only to be considered final once signed by the Provider(s) as displayed in the "<Electronically Signed by >" field (s). Absence of a signature indicates the report is in a draft status and still needs to be finalized. In the event this document was created by someone other than the signing Provider, the individual initiating the document will be listed in the "Entered by:" or "Dictated by:" benitez. 1 of 2 Patient Name: BELA HERRERA Medical Record#: [id number] Ordering Physician: Doris Hill MD Acct.#: [id number] : 1945 Age: 74 Sex: F Location: EMERGENCY DEPARTMENT Exam Date: 08/24/19 1224 ADM Status: REG ER Order Information: VL LOWER EXT VEINS BILATERAL Accession Number: [id number] CPT: 32708 HISTORY: bilat leg pain, bedbound, SOB, hx cancer, hx "LS" COMPARISONS: None relevant TECHNIQUE: Multiple transverse and longitudinal ultrasound images were obtained of the bilateral lower extremities from the level of the common femoral vein inferiorly through to the infrapopliteal veins using grayscale, color Doppler, and spectral Doppler imaging with and without compression and with augmentation. FINDINGS: VEINS: The venous system of the bilateral lower extremities is compressible throughout its course, with normal flow on color Doppler imaging and normal response to augmentation on spectral Doppler imaging. SOFT TISSUES: Unremarkable. OTHER FINDINGS: None. IMPRESSION: NO RIGHT LOWER EXTREMITY DEEP VEIN THROMBOSIS. NO LEFT LOWER EXTREMITY DEEP VEIN THROMBOSIS. <Electronically signed by Adalberto Humphreys MD in OV> 08/24/19 1515 Dictated By: Adalberto Humphreys MD Dictated Date/Time: 08/24/19 1509 Transcribed Date/Time: 08/24/19 150 Copy to: CC:Doris Hill MD; Cinthia Winston MD Imaging - [facility] Imaging - [facility] Imaging - [facility] [address] [place], [place] [id number] [place] [id number] [place] [id number] ph ([phone]) ph ([phone]) ph ([phone]) This report is only to be considered final once signed by the Provider(s) as displayed in the "<Electronically Signed by >" field (s). Absence of a signature indicates the report is in a draft status and still needs to be finalized. In the event this document was created by someone other than the signing Provider, the individual initiating the document will be listed in the "Entered by:" or "Dictated by:" benitez. 1 of 1 EKG Data: SNR 88 bpm, non specific ST changes, c/w prior ECG's rate is faster, ST's subtley changed. Assessment/Plan 74 with CAD, RA pain 2 days prior, recent respiratory decompensation, O2 sats in low normal range, mild elevation of troponins and subtle ECG's. Commorbidities of lateral sclerosis, COPD, wheel chair bound and more. ACS/NQMI with differential of type1 ischemia, type 2/demand ischemia, PE ( ruled out), inflammation, can check ESR/CRP for possible pleuropericarditis. Echo planned for AM, agree Optimize lungs as able, aware PLS impacts patients airway health. Continue with meds for good control of BP/lipids. Smoking cessation would be ideal. Tentative plan for brook myoview Sunday, but if more anginal symptoms, progressive ECG changes or Troponins rise more may need to go for cath.
--- NOTE | 2019-09-20 13:07 | PN ---
Hospitalist Progress Note Date of Service: 09/20/19 Patient seen today! Admitted earlier this morning by the photogeologist. 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 No history of chest pain, she does have chronic cough, and shortness of breath and complains of right arm pain 2 days ago. ER work up was significant for elevated troponin and admitted to tele. Will continue current treatment as per H&P plan with the following changes Currently admitted for NSTEMI: - Continue on tele, troponin peaked at 0.18 - Cardiology consult with Dr. Duffy - Echo as scheduled - Will get chemical nuclear stress on Sunday - She does have left side nephrectomy and also she just had CTA of chest for PE , Hence Cardiac cath need to be weighted for risk and benefit. I agree, optimal work up for now will be Chemical stress test - not a good candidate given her poor lung exam at this time COPD exacerbations: - Continue nebulizer, azithromycin - Will check for RSV and flu A+ B - Will change prednisone to dexamethasone as it does have less side effect on myopathy than prednisone given her history of PLS
[2019-09-20] MEDS: Dexamethasone TAB* 1 MG PO SCH ×2 (14:08→20:37)
[2019-09-20 14:25] LABS: Resp Syncytial Virus Molecular Negative (Negative)
[2019-09-20 14:26] LABS: Influenza A Molecular NEGATIVE (Negative); Influenza B Molecular NEGATIVE (Negative)
[2019-09-20] MEDS: amLODIPine TAB* 5 MG PO SCH (17:43)
[2019-09-20] MEDS: Atorvastatin* 20 MG TAB PO SCH (17:44)
[2019-09-20] MEDS: Mirtazapine TAB* 15 MG PO SCH (20:37)
[2019-09-20] MEDS: [UNRECOGNIZED DRUG - OTHER] INH SCH ×2 (20:40→20:52)
[2019-09-21] MEDS: Enoxaparin(*) 40 MG/0.4 ML SYR SUBCUT SCH (03:09)
[2019-09-21 06:23] LABS: BUN/Creatinine Ratio 25.6 (8-20); C Reactive Protein 13.25 mg/L (<8.01); EGFR Non-African American 64.5 (>60); Phosphorus 4.3 mg/dL (2.5-5.0); Potassium 4.2 mmol/L (3.5-5.0)
[2019-09-21 06:33] LABS: ABS Eosinophils 0.2 10^3/ul (0-0.6); ABS Lymphocytes 1.7 10^3/ul (1.0-4.8); ABS Monocytes 0.6 10^3/ul (0-0.8); ABS Neutrophils 6.6 10^3/ul (1.5-7.7); Eosinophil % 2.3 %; Hematocrit 38 % (35-47); Hemoglobin 12.2 g/dL (12.0-16.0); Lymphocyte % 18.6 %; Mean Corpuscular HGB Conc 33 g/dL (31-36); Mean Corpuscular Hemoglobin 31 pg (27-31); Mean Corpuscular Volume 95 fL (80-97); Mean Platelet Volume 7.2 fL (7.4-10.4); Platelet Count 436 10^3/uL (150-450); Red Blood Count 3.96 10^6 /uL (3.70-4.87); Red Cell Distribution Width 17 % (10-15); White Blood Count 9.2 10^3/uL (3.5-10.8)
[2019-09-21] MEDS: SPIRIVA Respimat* (tiotropium) 2.5 mcg/inh Inhaler INH SCH (07:32)
[2019-09-21] MEDS: [UNRECOGNIZED DRUG - OTHER] INH SCH (07:32)
[2019-09-21] MEDS: PTO: Mirabegron (NF) 50 MG TAB PO SCH (09:05)
[2019-09-21] MEDS: Oxybutynin XL TAB* 5 MG PO SCH (09:06)
[2019-09-21] MEDS: Dexamethasone TAB* 1 MG PO SCH ×3 (09:06→20:53)
[2019-09-21] MEDS: Primidone TAB(*) 250 MG PO SCH ×2 (09:06→20:54)
[2019-09-21] MEDS: Aspirin EC TAB* 81 MG TAB.EC PO SCH (09:07)
[2019-09-21] MEDS: Azithromycin TAB* 250 MG PO SCH (09:07)
[2019-09-21] MEDS: FLUoxetine CAP* 20 MG PO SCH ×2 (09:07→17:44)
[2019-09-21] MEDS: guaiFENesin ER TAB 600 MG PO SCH (09:07)
[2019-09-21] MEDS: Losartan TAB* 25 MG PO SCH (09:07)
[2019-09-21] MEDS: Cyanocobalamin TAB* 500 MCG PO SCH (09:08)
[2019-09-21] MEDS: Albuterol/Ipratropium NEB.SOL* Albuterol 2.5 MG/Ipratropium 0.5 MG 3 ML INH PRN (09:33)
[2019-09-21] MEDS ORDERED: Polyethylene Glycol 3350* 17 GM PACKET PO PRN (09:59)
[2019-09-21] MEDS ORDERED: Albuterol/Ipratropium NEB.SOL* Albuterol 2.5 MG/Ipratropium 0.5 MG 3 ML INH PRN (10:00)
[2019-09-21 11:37] LABS: Troponin I 0.12 ng/mL (<0.04)
--- NOTE | 2019-09-21 11:41 | PN ---
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 Per patient presented after she fell in the bathroom, mechanical fall, no LOC. Troponins in ED elevated and hx CAD, distant stent. RA pain 2 days prior. Recent admission for LRI, family reporting coughing recently and marked rhonchi on exam. Per pt breathing treatments help breathing. No recurrence of arm pain, no CP. Medications Active Medications: Albuterol/Ipratropium (Duoneb (Albuterol 2.5 Mg/Ipratropium 0.5 Mg)) 1 neb INH Q4H PRN PRN Reason: SHORTNESS OF BREATH Amlodipine Besylate (Norvasc Tab*) 10 mg PO QPM [facility] Last Admin: 09/20/19 17:43 Dose: 10 mg Aspirin (Aspirin Ec Tab*) 81 mg PO DAILY [facility] Last Admin: 09/21/19 09:07 Dose: 81 mg Atorvastatin Calcium (Lipitor*) 20 mg PO QPM [facility] Last Admin: 09/20/19 17:44 Dose: 20 mg Azithromycin (Zithromax Tab*) 250 mg PO DAILY [facility] Stop: 09/24/19 09:01 Last Admin: 09/21/19 09:07 Dose: 250 mg Budesonide (Pulmicort Neb*) 0.5 mg INH RT.BID [facility] Cyanocobalamin (Vitamin B12 Tab*) 2,500 mcg PO DAILY [facility] Last Admin: 09/21/19 09:08 Dose: 2,500 mcg Dexamethasone (Decadron Tab*) 1 mg PO TID [facility] Stop: 09/23/19 13:59 Last Admin: 09/21/19 09:06 Dose: 1 mg Docusate Sodium (Colace Cap*) 100 mg PO BID PRN PRN Reason: CONSTIPATION Enoxaparin Sodium (Lovenox(*)) 40 mg SUBCUT Q24H [facility] Last Admin: 09/21/19 03:09 Dose: 40 mg Fluoxetine HCl (Prozac Cap*) 20 mg PO QAM [facility] Last Admin: 09/21/19 09:07 Dose: 20 mg Fluoxetine HCl (Prozac Cap*) 40 mg PO QPM [facility] Last Admin: 09/20/19 17:42 Dose: 40 mg Guaifenesin (Mucinex*) 600 mg PO DAILY [facility] Last Admin: 09/21/19 09:07 Dose: 600 mg Losartan Potassium (Cozaar Tab*) 100 mg PO DAILY [facility] Last Admin: 09/21/19 09:07 Dose: 100 mg Mirabegron (Myrbetriq (Nf)) 50 mg PO DAILY [facility] Last Admin: 09/21/19 09:05 Dose: 50 mg Mirtazapine (Remeron Tab*) 15 mg PO BEDTIME [facility] Last Admin: 09/20/19 20:37 Dose: 15 mg Olodaterol (Striverdi Respimat) 2 puff INH DAILY [facility]; Protocol Last Admin: 09/21/19 07:32 Dose: 2 puff Oxybutynin Chloride (Ditropan Xl Tab*) 5 mg PO DAILY [facility]; Protocol Last Admin: 09/21/19 09:06 Dose: 5 mg Polyethylene Glycol/Electrolytes (Miralax*) 17 gm PO DAILY PRN PRN Reason: CONSTIPATION Primidone (Mysoline Tab(*)) 250 mg PO BID [facility] Last Admin: 09/21/19 09:06 Dose: 250 mg Tiotropium [place] (Spiriva Respimat 2.5 Mcg) 2 puff INH DAILY [facility] Last Admin: 09/21/19 07:32 Dose: 2 puff Objective Vital Signs: Temp Pulse Resp BP Pulse Ox 97.6 F 79 20 141/66 95 09/21/19 07:15 09/21/19 09:33 09/21/19 09:33 09/21/19 07:15 09/21/19 09:33 Oxygen Devices in Use Now: Nasal Cannula Appearance: older woman, moderately overweight in hospital bed, sitting up, NAD , appears chronically ill. Eyes: No Scleral Icterus, PERRLA Ears/Nose/Mouth/Throat: Mucous Membranes Moist Neck: NL Appearance and Movements; NL JVP Respiratory: Symmetrical Chest Expansion and Respiratory Effort - Diffuse rhonci posteriorly, marked anterior wheezing and rhonchi. Cardiovascular: NL Sounds; No Murmurs; No JVD, RRR Abdominal: NL Sounds; No Tenderness; No Distention Extremities: No Clubbing, Cyanosis - trace edema, symetrical in size, non tender , no cording. Skin: No Rash or Ulcers Neurological: Alert and Oriented x 3 - speech mildly slurred, marked motor dysfunciton, formal exam not performed. Lines/Tubes/Other Access: Clean, Dry and Intact Peripheral IV Laboratory Results: 09/21/19 05:19 09/21/19 05:24 Total Bilirubin 0.20 mg/dL (0.2-1.0) 09/19/19 21:13 AST 17 U/L (13-39) 09/19/19 21:13 ALT 17 U/L (7-52) 09/19/19 21:13 Alkaline Phosphatase 76 U/L (34-104) 09/19/19 21:13 Total Protein 7.1 g/dL (6.4-8.9) 09/19/19 21:13 Albumin 3.6 g/dL (3.2-5.2) 09/19/19 21:13 Globulin 3.5 g/dL (2-4) 09/19/19 21:13 Albumin/Globulin Ratio 1.0 (1-3) 09/19/19 21:13 Triglycerides 73 mg/dL 09/20/19 08:18 Cholesterol 177 mg/dL 09/20/19 08:18 LDL Cholesterol 63 mg/dL 09/20/19 08:18 HDL Cholesterol 99.5 mg/dL 09/20/19 08:18 TSH 1.02 mcIU/mL (0.34-5.60) 09/19/19 21:13 09/19/19 09/20/19 09/20/19 21:13 00:23 03:16 Troponin I 0.18 H* 0.14 H* 0.13 H* Trop 09/21/19 0.12 CRP mildly elevated, improving. Diagnostic Imaging: Patient Name: BELA HERRERA Medical Record#: [id number] Ordering Physician: Andrae ARRITEA Acct.#: [id number] : 1945 Age: 74 Sex: F Location: EMERGENCY DEPARTMENT Exam Date: 09/19/192255 ADM Status: REG ER Order Information: CTA CHEST Accession Number: [id number] CPT: 53047 PROCEDURE INFORMATION: Exam: CT Angiography Chest With Contrast Exam date and time: 09/19/2019 11:29 PM Clinical history: 74 years old, female; Shortness of breath; Additional info: Elevated troponin, SOB TECHNIQUE: Imaging protocol: Computed tomographic angiography of the chest with intravenous contrast. 3D rendering: MIP reconstructed images were created and reviewed. Radiation optimization: All CT scans at this facility use at least one of these dose optimization techniques: automated exposure control; mA and/or kV adjustment per patient size (includes targeted exams where dose is matched to clinical indication); or iterative reconstruction. Contrast material: VISI; Contrast volume: 67 ml; Contrast route: IV; COMPARISON: CTA CHEST [facility] 08/24/2019 2:19 PM FINDINGS: Pulmonary arteries: No visible acute pulmonary embolism. Aorta: Unremarkable. No aortic aneurysm. No aortic dissection. Lungs: Stable mild centrilobular emphysema. There is increase bibasilar and bilateral dependent atelectatic change or scarring, cannot exclude a component of right lower lobe pneumonitis. Pleural space: Unremarkable. No pneumothorax. No pleural effusion. Heart: Stable atherosclerotic aortic and coronary artery calcifications. Diaphragm: Stable relative elevation of the right hemidiaphragm. Gallbladder and bile ducts: Stable cholelithiasis without pericholecystic inflammatory change. Adrenals: Stable lipid rich bilateral adrenal adenomas. Stomach and bowel: Stable postoperative changes of the bowel in the upper abdomen. Lymph nodes: Unremarkable. No enlarged lymph nodes. Bones/joints: Stable diffuse osteopenia and degenerative changes of the spine. Soft tissues: Unremarkable. IMPRESSION: 1. Stable mild centrilobular emphysema. 2. There is increase bibasilar and bilateral dependent atelectatic change or scarring, cannot exclude a component of right lower lobe pneumonitis. 3. No visible acute pulmonary embolism. To contact [facility] with a general question: [facility] - [phone] For direct physician to physician contact: Physician Hotline - [phone] [facility] ([facility] Facility ID #[id number]) <Electronically signed by Robles Rodriguez MD in OV> 09/20/19 0027 This report is only to be considered final once signed by the Provider(s) as displayed in the "<Electronically Signed by >" field (s). Absence of a signature indicates the report is in a draft status and still needs to be finalized. In the event this document was created by someone other than the signing Provider, the individual initiating the document will be listed in the "Entered by:" or "Dictated by:" benitez. 1 of 2 Patient Name: BELA HERRERA Medical Record#: [id number] Ordering Physician: Doris Hill MD Acct.#: [id number] : 1945 Age: 74 Sex: F Location: EMERGENCY DEPARTMENT Exam Date: 08/24/19 1224 ADM Status: REG ER Order Information: VL LOWER EXT VEINS BILATERAL Accession Number: [id number] CPT: 76764 HISTORY: bilat leg pain, bedbound, SOB, hx cancer, hx "LS" COMPARISONS: None relevant TECHNIQUE: Multiple transverse and longitudinal ultrasound images were obtained of the bilateral lower extremities from the level of the common femoral vein inferiorly through to the infrapopliteal veins using grayscale, color Doppler, and spectral Doppler imaging with and without compression and with augmentation. FINDINGS: VEINS: The venous system of the bilateral lower extremities is compressible throughout its course, with normal flow on color Doppler imaging and normal response to augmentation on spectral Doppler imaging. SOFT TISSUES: Unremarkable. OTHER FINDINGS: None. IMPRESSION: NO RIGHT LOWER EXTREMITY DEEP VEIN THROMBOSIS. NO LEFT LOWER EXTREMITY DEEP VEIN THROMBOSIS. <Electronically signed by Adalberto Humphreys MD in OV> 08/24/19 1515 Dictated By: Adalberto Humphreys MD Dictated Date/Time: 08/24/19 1509 Transcribed Date/Time: 08/24/19 1509 Copy to: CC:Doris Hill MD; Cinthia Winston MD Imaging - [facility] Imaging - [place] [facility] [address] [address] ph ([phone]) ph ([phone]) ph ([phone]) This report is only to be considered final once signed by the Provider(s) as displayed in the "<Electronically Signed by >" field (s). Absence of a signature indicates the report is in a draft status and still needs to be finalized. In the event this document was created by someone other than the signing Provider, the individual initiating the document will be listed in the "Entered by:" or "Dictated by:" benitez. 1 of 1 EKG Data: SNR 88 bpm, non specific ST changes, c/w prior ECG's rate is faster, ST's subtley changed. Assessment/Plan 74 with CAD, RA pain 2 days prior, recent respiratory decompensation, O2 sats in low normal range, mild elevation of troponins and subtle ECG's. Commorbidities of lateral sclerosis, COPD, wheel chair bound, possible aspiration. ACS/NQMI: Type 1 vs type 2 ischemia. Leximyoview in AM. Normal echo and trops improving reassuring. Control BP and continue to optimize respiratory status to decrease stress on heart.
[2019-09-21] MEDS: Budesonide NEB* 0.5 MG/2 ML NEB.SOLN INH SCH ×2 (12:11→19:25)
--- NOTE | 2019-09-21 12:24 | ECHO ---
*[facility]* [place] [address] Fax #: [phone] Transthoracic Echocardiogram Patient: Farrah Augustin : 1945 Study Date: 09/21/2019 Age: 74 Gender: F HR: 76 bpm Height: 60 in /152.4 cm BSA: 1.59 m^2 Weight: 137.7 lb /62.6 kg BMI: 27 kg/m^2 *Hand Bookbinder: * Joycelyn Cervantes [facility] *Referring Physician: * Curt Carrera *Reading Physician: * Florence Portillo MD Indications: Elevated TROPs. History: COPD, lateral sclerosis, renal cancer. Coronary artery disease. Risk factors: Current tobacco use. Conclusions Summary: - Left ventricle: Systolic function is normal. The estimated ejection fraction is 60%. - Right ventricle: The cavity size is normal. Wall thickness is mildly increased. Systolic function is normal. - All valves show good function. - Tricuspid valve: There is trace regurgitation. - Pericardium, extracardiac: There is no significant pericardial effusion. - Pulmonary arteries: Systolic pressure can not be accurately estimated. - No prior echocardiogram avialable to compare. Study data: Transthoracic echocardiogram. Procedure: Transthoracic echocardiography was performed. Image quality was fair. Complete 2D, spectral Doppler, and color flow Doppler. Location: Bedside. Patient status: Inpatient. Patient room number: 451. Rhythm: Normal sinus rhythm. Findings Left ventricle: The cavity size is normal. Wall thickness is normal. Systolic function is normal. The estimated ejection fraction is 55-60%. Wall motion is normal; there are no regional wall motion abnormalities. There is no consistent Doppler evidence of clinically significant diastolic dysfunction. Right ventricle: The cavity size is normal. Wall thickness is mildly increased. Systolic function is normal. Left atrium: The atrium is at the upper limits of normal in size. Right atrium: The atrium is normal in size. Mitral valve: The leaflets are normal thickness. There is no evidence of stenosis. There is no significant regurgitation. Aortic valve: The valve is trileaflet. The leaflets are normal thickness. There is no evidence of stenosis. There is no significant regurgitation. Tricuspid valve: The leaflets are normal thickness. There is no evidence of stenosis. There is trace regurgitation. Pulmonic valve: The leaflets are normal thickness. There is no evidence of stenosis. There is no significant regurgitation. Aorta: The aortic root appears normal. Pericardium: A prominent pericardial fat pad is present. There is no significant pericardial effusion. Pulmonary arteries: The main pulmonary artery is normal-sized. Systolic pressure can not be accurately estimated. Systemic veins: Inferior vena cava: The vessel is normal in size. There is (>= 50%) respiratory change in the IVC dimension. Measurements Left ventricle Value Ref Aortic valve Value Ref MABLE, LAX 4.8 cm 3.8 - 5.2 Lindy diam, ED 2.1 cm ---- ESD, LAX 3.0 cm 2.2 - 3.5 Lindy diam/bsa, ED 1.3 cm/m^2 ---- FS, LAX 39 % 27 - 45 Peak v, S 1.12 m/sec ---- PW, ED, LAX (H) 1.0 cm 0.6 - 0.9 VTI, S 20.9 cm ---- EF 69 % 54 - 74 Mean grad, S 3.0 mm Hg ---- E', lat lindy, TDI (L) 6.1 cm/sec >=10.0 Peak grad, S 5.0 mm Hg - --- E/e', lat lindy, 16 TDI Mitral valve Value Ref E', med lindy, TDI (L) 5.1 cm/sec >=7.0 Peak E 0.95 m/sec - --- E/e', med lindy, 19 Peak A 1.13 m/sec ---- TDI Decel time 161 ms ---- E', avg, TDI 5.6 cm/sec PHT 80 ms ---- E/e', avg, TDI (H) 17 <=14 Mean grad, D 2.0 mm Hg - --- Peak grad, D 7.0 mm Hg ---- LVOT Value Ref Peak E/A ratio 0.8 ---- Peak chaitanya, S 0.81 m/sec MVA, PHT 2.8 cm^2 ---- Mean grad, S 1 mm Hg Pulmonic valve Value Ref Ventricular septum Value Ref Peak v, S 0.83 m/sec ---- IVS, ED 0.8 cm 0.6 - 0.9 Peak grad, S 3.0 mm Hg ---- Right ventricle Value Ref Aortic root Value Ref MABLE, LAX 2.6 cm Root diam 2.9 cm <3.8 MABLE minor ax, A4C 2.0 cm 1.9 - 3.5 mid Ascending aorta Value Ref AAo AP diam, S 2.9 cm ---- Left atrium Value Ref AP dim, ES 2.90 cm 2.70 - Aortic arch Value Ref 3.80 Arch diam 2.6 cm ---- ML dim, A4C 3.6 cm SI dim, A4C 5.9 cm Decending aorta Value Ref Vol/bsa, ES, 1-p 34 ml/m^2 11 - 40 Ronel peak chaitanya 0.79 m/sec ---- A4C Inferior vena cava Value Ref Right atrium Value Ref Diam 1.3 cm ---- SI dim, ES 3.8 cm 3.4 - 5.3 ML dim, ES, A4C 3.5 cm 2.6 - 4.4 Estimated RAP 8 mm Hg Legend: (L) and (H) kim values outside specified reference range. Prepared and electronically signed by Florence Portillo MD 09/21/2019 12:23
--- NOTE | 2019-09-21 14:32 | PN ---
Subjective Date of Service: 09/21/19 Interval History: patient seen this morning, she remains shortness of breath and coughing. 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 No chest pain, complaining of constipations Past Medical History: Unchanged from Admission Objective Active Medications: Albuterol (Ventolin 2.5 Mg/3 Ml Neb.Meenakshi*) 2.5 mg INH [id number] AWAKE [facility] Albuterol/Ipratropium (Duoneb (Albuterol 2.5 Mg/Ipratropium 0.5 Mg)) 1 neb INH Q4H PRN PRN Reason: SHORTNESS OF BREATH Last Admin: 09/21/19 12:12 Dose: 1 neb Amlodipine Besylate (Norvasc Tab*) 10 mg PO QPM [facility] Last Admin: 09/20/19 17:43 Dose: 10 mg Aspirin (Aspirin Ec Tab*) 81 mg PO DAILY [facility] Last Admin: 09/21/19 09:07 Dose: 81 mg Atorvastatin Calcium (Lipitor*) 20 mg PO QPM [facility] Last Admin: 09/20/19 17:44 Dose: 20 mg Azithromycin (Zithromax Tab*) 250 mg PO DAILY [facility] Stop: 09/24/19 09:01 Last Admin: 09/21/19 09:07 Dose: 250 mg Budesonide (Pulmicort Neb*) 0.5 mg INH RT.BID [facility] Last Admin: 09/21/19 12:11 Dose: Not Given Cyanocobalamin (Vitamin B12 Tab*) 2,500 mcg PO DAILY [facility] Last Admin: 09/21/19 09:08 Dose: 2,500 mcg Dexamethasone (Decadron Tab*) 1 mg PO TID [facility] Stop: 09/23/19 13:59 Last Admin: 09/21/19 09:06 Dose: 1 mg Docusate Sodium (Colace Cap*) 100 mg PO BID PRN PRN Reason: CONSTIPATION Enoxaparin Sodium (Lovenox(*)) 40 mg SUBCUT Q24H [facility] Last Admin: 09/21/19 03:09 Dose: 40 mg Fluoxetine HCl (Prozac Cap*) 20 mg PO QAM [facility] Last Admin: 09/21/19 09:07 Dose: 20 mg Fluoxetine HCl (Prozac Cap*) 40 mg PO QPM [facility] Last Admin: 09/20/19 17:42 Dose: 40 mg Guaifenesin (Mucinex*) 600 mg PO DAILY [facility] Last Admin: 09/21/19 09:07 Dose: 600 mg Losartan Potassium (Cozaar Tab*) 100 mg PO DAILY [facility] Last Admin: 09/21/19 09:07 Dose: 100 mg Mirabegron (Myrbetriq (Nf)) 50 mg PO DAILY [facility] Last Admin: 09/21/19 09:05 Dose: 50 mg Mirtazapine (Remeron Tab*) 15 mg PO BEDTIME SUNDAR Last Admin: 09/20/19 20:37 Dose: 15 mg Olodaterol (Striverdi Respimat) 2 puff INH DAILY [facility]; Protocol Last Admin: 09/21/19 07:32 Dose: 2 puff Oxybutynin Chloride (Ditropan Xl Tab*) 5 mg PO DAILY [facility]; Protocol Last Admin: 09/21/19 09:06 Dose: 5 mg Polyethylene Glycol/Electrolytes (Miralax*) 17 gm PO DAILY PRN PRN Reason: CONSTIPATION Primidone (Mysoline Tab(*)) 250 mg PO BID [facility] Last Admin: 09/21/19 09:06 Dose: 250 mg Tiotropium Askov (Spiriva Respimat 2.5 Mcg) 2 puff INH DAILY [facility] Last Admin: 09/21/19 07:32 Dose: 2 puff Vital Signs - 8 hr 09/21/19 09/21/19 09/21/19 07:15 07:37 08:00 Temperature 97.6 F Pulse Rate 71 70 Respiratory 20 22 20 Rate Blood Pressure 141/66 (mmHg) O2 Sat by Pulse 92 97 Oximetry 09/21/19 09/21/19 09/21/19 09:33 11:15 12:14 Temperature 97.8 F Pulse Rate 79 72 71 Respiratory 20 20 14 Rate Blood Pressure 130/63 (mmHg) O2 Sat by Pulse 95 93 96 Oximetry Oxygen Devices in Use Now: Nasal Cannula Appearance: awake, alert. no distress Eyes: No Scleral Icterus, - Ears/Nose/Mouth/Throat: NL Teeth, Lips, Gums, Mucous Membranes Moist Neck: NL Appearance and Movements; NL JVP, Trachea Midline Respiratory: Symmetrical Chest Expansion and Respiratory Effort, - - coarse rhonchi, expiratory wheezing, some transmitted upper airway breath sounds Cardiovascular: NL Sounds; No Murmurs; No JVD, RRR, No Edema Abdominal: NL Sounds; No Tenderness; No Distention Extremities: No Edema Neurological: Alert and Oriented x 3, - - paraplegic lower extremities Result Diagrams: 09/21/19 05:19 09/21/19 05:24 Assess/Plan/Problems-Billing Assessment: 74 year old female admitted for Shortness of breath and reccurent fall found to have demand mediated ischemia - Patient Problems (1) COPD exacerbation Current Visit: No Status: Acute Code(s): J44.1 - CHRONIC OBSTRUCTIVE PULMONARY DISEASE W (ACUTE) EXACERBATION SNOMED Code(s): 879666362 Comment: - Continue nebulizer, azithromycin - RSV and flu A+ B negative - I changed prednisone to dexamethasone as it does have less side effect on myopathy than prednisone given her history of PLS, however if she does not improve we may need to increase her dose. I will taper her slowly over 2-3 weeks course given her severe reactive airway disease. - I did add her pulmicort nebulizer treatment - Continue duoneb Q4hrs while awake PRN, spiriva, olodaterol, mucinex and azithromycin day #2/5 (2) Myocardial ischemia Current Visit: Yes Status: Acute Code(s): I25.9 - CHRONIC ISCHEMIC HEART DISEASE, UNSPECIFIED SNOMED Code(s): 607454927 Comment: - Continue on tele, troponin peaked at 0.18 - Cardiology consult with Dr. Duffy - Echo 09/20/19 EF 55-60% no wall motion abnormalities - Will get chemical nuclear stress on Sunday - She does have left side nephrectomy s/p CTA of chest for PE on admission, Hence Cardiac cath need to be weighted for risk and benefit. 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 Code(s): G12.23 - PRIMARY LATERAL SCLEROSIS SNOMED Code(s): 68650716 Comment: - Secondary to PLS - she does have baclofen pump - she has 24 hrs care at home - I did Recommend that she follows up with local neurologist (6) Paraplegia, unspecified Current Visit: Yes Status: Acute Code(s): G82.20 - PARAPLEGIA, UNSPECIFIED SNOMED Code(s): 63514626 Comment: - Secondary to PLS - she does have baclofen pump - she has 24 hrs care at home - I did Recommend that she follows up with local neurologist (7) Urinary retention Current Visit: No Status: Acute Code(s): R33.9 - RETENTION OF URINE, UNSPECIFIED SNOMED Code(s): 282016823 Comment: - Will need to establish with local urology as well. - I advised her sister and her aid to follow up with urology as outpatient (8) DVT prophylaxis Current Visit: No Status: Acute Code(s): Z29.9 - ENCOUNTER FOR PROPHYLACTIC MEASURES, UNSPECIFIED SNOMED Code(s): 054620944 Comment: maycol
[2019-09-21] MEDS: Albuterol 2.5 MG/3 ML NEB.SOL* (0.083%) INH SCH ×3 (15:09→22:46)
[2019-09-21] MEDS ORDERED: Acetaminophen TAB* 325 MG PO PRN (15:20)
[2019-09-21] MEDS: amLODIPine TAB* 5 MG PO SCH (17:45)
[2019-09-21] MEDS: Atorvastatin* 20 MG TAB PO SCH (17:47)
[2019-09-21] MEDS: Mirtazapine TAB* 15 MG PO SCH (20:54)
[2019-09-22] MEDS: Albuterol 2.5 MG/3 ML NEB.SOL* (0.083%) INH SCH ×4 (03:28→16:57)
[2019-09-22] MEDS ORDERED: Enoxaparin(*) 40 MG/0.4 ML SYR SUBCUT SCH (06:00)
[2019-09-22] MEDS: Budesonide NEB* 0.5 MG/2 ML NEB.SOLN INH SCH (07:53)
[2019-09-22] MEDS: [UNRECOGNIZED DRUG - OTHER] INH SCH (07:54)
[2019-09-22] MEDS: SPIRIVA Respimat* (tiotropium) 2.5 mcg/inh Inhaler INH SCH (07:54)
[2019-09-22] MEDS: PTO: Mirabegron (NF) 50 MG TAB PO SCH (11:17)
[2019-09-22] MEDS: Losartan TAB* 25 MG PO SCH (11:17)
[2019-09-22] MEDS: Primidone TAB(*) 250 MG PO SCH (11:17)
[2019-09-22] MEDS: Azithromycin TAB* 250 MG PO SCH (11:17)
[2019-09-22] MEDS: Aspirin EC TAB* 81 MG TAB.EC PO SCH (11:18)
[2019-09-22] MEDS: FLUoxetine CAP* 20 MG PO SCH (11:18)
[2019-09-22] MEDS: guaiFENesin ER TAB 600 MG PO SCH (11:19)
[2019-09-22] MEDS: Cyanocobalamin TAB* 500 MCG PO SCH (11:19)
[2019-09-22] MEDS: Oxybutynin XL TAB* 5 MG PO SCH (11:20)
[2019-09-22] MEDS: Dexamethasone TAB* 1 MG PO SCH ×2 (11:20→13:54)
[2019-09-22] MEDS ORDERED: Regadenoson* 0.4 MG/5 ML SYRINGE ONE (12:17)
[2019-09-22 17:12] VITALS: BP 152/67
--- NOTE | 2019-09-23 03:10 | DS ---
CC: Dr. Winston.* DISCHARGE SUMMARY: DATE OF ADMISSION: 09/20/19 DATE OF DISCHARGE: 09/22/19 PRIMARY CARE PROVIDER: Dr. Winston. ATTENDING PHYSICIAN WHILE IN THE HOSPITAL: Dr. Halima Cruz * (dictated by BERNY Reynolds) CONSULTING CASE CHECKER: Dr. Portillo. PRIMARY DIAGNOSES: 1. Troponinemia secondary to ischemic demand. 2. Chronic obstructive pulmonary disease exacerbation secondary to pneumonia. 3. Mechanical fall. SECONDARY DIAGNOSES: 1. Primary lateral sclerosis with functional quadriplegia. 2. Chronic obstructive pulmonary disease, on 2 L of oxygen overnight. 3. Tobacco use. 4. Left renal carcinoma status post nephrectomy. 5. History of colon cancer status post resection. 6. Chronic muscular spasms and back pain with baclofen pump. 7. Osteoarthritis. 8. Skin cancer status post radiation. 9. Chronic urinary incontinence. STUDIES DONE WHILE IN THE HOSPITAL: Nuclear cardiac stress test. Impression: No definite fixed or reversible perfusion defects. Assessment: Low risk. HISTORY OF PRESENT ILLNESS/HOSPITAL COURSE: Farrah Augustin is a 74-year-old female with past medical history significant for primary lateral sclerosis versus functional quadriplegia and COPD on 2 L oxygen overnight, who was recently seen by her primary care provider and given azithromycin and prednisone due to wheezing and increased coughing. Please see further details in the admitting history and physical written by Dr. Curt Carrera. At the time of admission, the patient was found to have an elevated troponin and she was admitted to evaluate this. Ultimately, her stress test was low risk and likely her elevated troponin is secondary to ischemic demand in the setting of COPD exacerbation. The patient was started on azithromycin and prednisone outpatient on 09/18/19 and she did continue azithromycin and oral steroids during her hospital stay and ultimately she did receive a 5-day course. However, she did continue to have wheezing, but was not hypoxic on day of discharge. We discussed prednisone taper and the patient was agreeable. The patient was evaluated by physical therapy during her hospital stay as she did present due to a fall. This fall is likely some deconditioning in the setting of a COPD exacerbation and pneumonia, which was confirmed on chest CTA. The patient was seen by physical therapy and recommended further skilled PT. The patient refused subacute rehab. She has 24x7 privately hired aides at home and is not able to hire more due to her financial situation. Additionally during her hospital stay , she had a transthoracic echocardiogram with no regional wall motion abnormalities and her ejection fraction was found to be 60%. She was afebrile during the entirety of her hospital stay and did not have leukocytosis. On day of discharge, the patient is feeling well. She is not short of breath. Denies fever or chills, chest pain or other anginal equivalents. Finally, there was concern for possible microaspiration and the patient was evaluated by speech language pathologist. The speech language pathologist recommended a soft diet for the patient. PHYSICAL EXAM: General: Elderly white female lying in hospital bed, appearing comfortable in no distress. Eyes: PERRL. Sclerae anicteric. ENT: Mucous membranes moist. Lungs: Expiratory wheezing throughout. No crackles or rhonchi. Cardio: Regular rate and rhythm with no murmurs, rubs or gallops. Abdomen: Soft, nontender, nondistended. Extremities: No clubbing, cyanosis or edema. No calf tenderness. Neuro: The patient is alert and oriented x3. Grossly strength is diminished in all extremities, but is able to move the extremities. No tremors. DISCHARGE PLAN: Diet: Soft diet. Activity: The patient may return to normal activity as tolerated. The patient is advised to return to the emergency department if experiencing shortness of breath that is not resolved by nebulizers, chest pain, fevers or chills or other concerning symptoms. The patient should follow up with Dr. Winston within a week to ensure that her clinical status is improving. She is advised to not continue the prednisone and azithromycin that she has at home as those have been completed, though she will follow the prednisone taper as prescribed by myself. As previously mentioned, she and I discussed subacute rehab was the most appropriate discharge plan for her; however, she declined subacute rehab and she understands these risks for further falls. DISCHARGE MEDICATIONS: New medications: Prednisone 40 mg x3 days, 30 mg x3 days, 20 mg x3 days, 10 mg x3 days, then discontinue. Continued Home Medications: 1. DuoNeb 1 nebulizer inhaled q.6 hours p.r.n. shortness of breath/wheezing ( though in for the next week I recommended DuoNeb q.8 hours). 2. Mucinex 40 mg p.o. daily p.r.n. cough. 3. Losartan 100 mg p.o. daily. 4. Mirabegron 50 mg p.o. daily. 5. Remeron 15 mg p.o. at bedtime. 6. Primidone 250 mg p.o. b.i.d. 7. Salmeterol Diskus 1 puff inhaled b.i.d. 8. Tolterodine 4 mg p.o. daily. 9. Incruse Ellipta 1 inhalation daily. 10. Amlodipine 10 mg p.o. daily. 11. Lipitor 20 mg p.o. daily. 12. Vitamin B12 25/100 mcg p.o. daily. 13. Colace 100 mg p.o. b.i.d. p.r.n. constipation. 14. Prozac 40 mg p.o. q.p.m. 15. Prozac 20 mg p.o. q.a.m. 16. Aspirin 81 mg p.o. daily. CONDITION ON DISCHARGE: Fair. DISPOSITION: Home. TIME SPENT: Approximately 40 minutes were spent on this discharge, approximately half of this time spent at bedside evaluating the patient and discussing the plan of care. BERNY REYNOLDS [id number]/[facility] #: [id number] MTDTali
== END 2019-09-22 18:15 | disposition home health service (06) | DRG 193 ==
LOC: ED 20:32 → MEDTELE 09-20 03:00
PROVIDERS: ADMIT Internal Medicine; ATTEND Hospitalist
DX: J18.9 Pneumonia, unspecified organism (principal); R53.2 Functional quadriplegia; J44.1 Chronic obstructive pulmonary disease with (acute) exacerbation; G12.23 Primary lateral sclerosis; I24.8 Other forms of acute ischemic heart disease; J44.0 Chronic obstructive pulmonary disease with (acute) lower respiratory infection; J98.11 Atelectasis; Z66 Do not resuscitate; I25.10 Atherosclerotic heart disease of native coronary artery without angina pectoris; E66.3 Overweight; R74.8 Abnormal levels of other serum enzymes; Z99.81 Dependence on supplemental oxygen; F17.200 Nicotine dependence, unspecified, uncomplicated; M19.90 Unspecified osteoarthritis, unspecified site; R32 Unspecified urinary incontinence; M62.830 Muscle spasm of back; F32.9 Major depressive disorder, single episode, unspecified; Z85.038 Personal history of other malignant neoplasm of large intestine; Z85.528 Personal history of other malignant neoplasm of kidney; Z85.828 Personal history of other malignant neoplasm of skin; Z92.3 Personal history of irradiation; Z79.2 Long term (current) use of antibiotics; Z79.82 Long term (current) use of aspirin; Z79.52 Long term (current) use of systemic steroids; Z79.899 Other long term (current) drug therapy; Z88.5 Allergy status to narcotic agent; Z80.9 Family history of malignant neoplasm, unspecified; Z99.3 Dependence on wheelchair; Z68.30 Body mass index [BMI] 30.0-30.9, adult
CPT/HCPCS: 36415; 71046; 71275; 78452; 80048; 80053; 80061; 81003; 83735; 84100; 84443; 84484; 85025; 85652; 86140; 93005; 93017; 93306; 94640; 99285; A9270-GY; A9502; G8978-GP-CM; G8979-GP-CK; J1650; J2785; J3535; J7512; Q9967

== ENCOUNTER 2019-10-26 13:51 | Inpatient (IN) | payer MEDICARE, OTHER ==
--- NOTE | 2019-10-26 14:04 | ED ---
Shortness of Breath - HPI Summary HPI Summary: The patient is a 74 y/o F arriving by ambulance to [facility] with a chief complaint of shortness of breath onset yesterday. She reports that she is unable to breathe well. She endorses a productive cough without any fevers or chest pain. She is not currently in any pain. EMS administered 2 nitroglycerin in the ambulance, and they placed her on 3L O2. She is noted to have been lying down more recently secondary to a fractured ankle and is non-weight bearing. PMHx: COPD, asthma, CAD, HLD, HTN, anxiety, colon cancer, breast cancer.Current every day smoker, no EtOH, no substance use. Medications reviewed. Allergies noted. - History of Current Complaint Time Seen by Provider: 10/26/19 13:53 Hx Obtained From: Patient Onset/Duration: Gradual Onset, Lasting Hours - since yesterday, Still Present Current Severity: Moderate Dyspnea At: Rest Aggravating Factors: Nothing Alleviating Factors: Nothing Associated Signs & Symptoms: Cough (Productive) - Allergy/Home Medications Allergies/Adverse Reactions: Allergies Allergy/AdvReac Type Severity Reaction Status Date / Time codeine Allergy Nausea Verified 06/30/19 18:39 Home Medications: Home Medications predniSONE TAB* [Deltasone 10 MG TAB*] 40 mg PO DAILY 10/26/19 [History Confirmed 10/26/19] PMH/Surg Hx/FS Hx/Imm Hx Endocrine/Hematology History: Denies: Hx Anticoagulant Therapy, Hx Blood Disorders, Hx Diabetes, Hx Thyroid Disease Cardiovascular History: Reports: Hx Coronary Artery Disease, Hx Hypercholesterolemia, Hx Hypertension, Other Cardiovascular Problems/Disorders - heart cath and stent Denies: Hx Auto Implanted Cardiovert Defib Respiratory History: Reports: Hx Asthma, Hx Chronic Obstructive Pulmonary Disease (COPD) GI History: Reports: Other GI Disorders - hx colon cancer with resection Denies: Hx Gastroesophageal Reflux Disease History: Reports: Other Problems/Disorders - kidney cancer- left kidney removed Musculoskeletal History: Reports: Hx Arthritis, Hx Back Problems, Other Musculoskeletal History - implanted baclofen pump for pain, LLQ Sensory History: Reports: Hx Cataracts - both eyes Denies: Hx Contacts or Glasses, Hx Hearing Aid Opthamlomology History: Reports: Hx Cataracts - both eyes Denies: Hx Contacts or Glasses Neurological History: Reports: Other Neuro Impairments/Disorders - lateral sclerosis Denies: Hx Migraine, Hx Seizures, Hx Transient Ischemic Attacks (TIA) Psychiatric History: Reports: Hx Anxiety, Hx Depression Denies: Hx Panic Disorder, Hx Suicide Attempt - Cancer History Cancer Type, Location and Year: colon CA. right breast CA. skin CA Hx Radiation Therapy: Yes - Surgical History Surgical History: Yes Surgery Procedure, Year, and Place: Partial Hysterectomy-still has uterus 1996, Disc Surgery-lower spine 1980, Cyst removal-rectum 1981, Baclofen pump implant 1996, Carpal tunnel 1996, Bladder repair 1998, Carpal tunnel and ulnar nerve in arm 1998, Baclofen pump replacement 2001, Cataract - left eye 2003, Colon resection for cancer 2006, Cataract - right eye 2007, Lumpectomy - right breast for CA 2010, Heart catheterization and stent impant 2010, Baclofen pump replacement 2013, Left kidney removal for cancer, Left Arm Ulnar Nerve 2014, Skin Cancer - Radiation treatment 2017. Hx Anesthesia Reactions: No - Family History Known Family History: Positive: Other - positive: father committed suicide, father had CA - Social History Alcohol Use: None Hx Substance Use: No Substance Use Type: Reports: None Hx Tobacco Use: Yes Smoking Status (MU): Heavy Every Day Tobacco Smoker Type: Cigarettes Have You Smoked in the Last Year: Yes Review of Systems Negative: Fever Negative: Chest Pain Positive: Shortness Of Breath, Cough - productive All Other Systems Reviewed And Are Negative: Yes Physical Exam - Summary Physical Exam Summary: VITAL SIGNS: Reviewed. GENERAL: Patient is a well-developed and nourished female who is lying comfortable in the stretcher. Patient is not in any acute respiratory distress. HEAD AND FACE: No signs of trauma. No ecchymosis, hematomas or skull depressions. No sinus tenderness. EYES: PERRLA, EOMI x 2, No injected conjunctiva, no nystagmus. EARS: Hearing grossly intact. Ear canals and tympanic membranes are within normal limits. MOUTH: Oropharynx within normal limits. NECK: Supple, trachea is midline, no adenopathy, no JVD, no carotid bruit, no c- spine tenderness, neck with full ROM. CHEST: Symmetric, no tenderness at palpation. LUNGS: Diffuse crackles. No wheezing. CVS: Regular rate and rhythm, S1 and S2 present, no murmurs or gallops appreciated. ABDOMEN: Soft, non-tender. No signs of distention. No rebound, no guarding, and no masses palpated. Bowel sounds are normal. EXTREMITIES: Swelling of the left lower extremity. FROM in all major joints, no cyanosis or clubbing. NEURO: Alert and oriented x 3. No acute neurological deficits. Speech is normal and follows commands. SKIN: Dry and warm. Triage Information Reviewed: Yes Vital Signs Reviewed: Yes Procedures - Sedation Patient Received Moderate/Deep Sedation with Procedure: No Diagnostics - Laboratory Result Diagrams: 10/26/19 14:54 10/26/19 14:54 Lab Statement: Any lab studies that have been ordered have been reviewed, and results considered in the medical decision making process. - Radiology Chest X-Ray Radiology Interpretation Completed By: Radiologist Summary of Radiographic Findings: Impression: Hypoinflated lungs with no focal airspace opacification. ED physician has reviewed this report. - CT Chest/Thorax CTA CT Interpretation Completed By: Radiologist Summary of CT Findings: Impression: No evidence of PE. Mild right basilar infiltrate may suggest developing pneumonia. Moderate emphysematous changes. ED physician has reviewed this report. - Ultrasound Lower Extremity DVT US Ultrasound Interpretation Completed By: Radiologist Summary of Ultrasound Findings: Impression: The peroneal veins are not well visualized. Within this constraint, there is no evidence of deep venous thrombosis in either leg. ED physician has reviewed this report. - EKG 1407 Cardiac Rate: Tachycardia - 101 BPM EKG Rhythm: Sinus Tachycardia EKG Comparison: No Significant Change - Similar to previous EKG taken on . Summary of EKG Findings: EKG at 1407 reveals sinus tachycardia at [address] depressions in V5 and V6. No ST elevations. ED physician has reviewed and interpreted this EKG. Course/Dx - Course Assessment/Plan: This patient is a 74-year-old female who presents to the emergency department with a chief complaint of shortness of breath, productive cough, and weakness for the last couple days. Patient reports that has been more sedentary since a couple days ago she sustained a left ankle pain. She is also complaining of bilateral calf pain. Past medical history: Sepsis secondary to UTI. Primary lateral sclerosis. Functional quadriplegia. Depression. Chronic back pain. COPD. Hypothymia. Adrenal abnormality. Urinary tract infection. Paraplegia unspecified. Myocardial ischemia. Chest x -ray impression: hyperinflated lungs with no focal airspace disease. Blood work : CBC: WBCs of 13, hemoglobin 12.3, hematocrit 37, platelets 560, absolute neutrophils 11.4. CMP within normal limits except for glucose 134, troponin 0.05, CRP 59.3. ABG: PH 7.43, PCO2 36, PO2 110, O2 sat 99.5. B/L LE ultrasound IMPRESSION: THE PERONEAL VEINS ARE NOT WELL VISUALIZED. WITHIN THIS CONSTRAINT, THERE IS NO EVIDENCE. OF DEEP VENOUS THROMBOSIS IN EITHER LEG. In the ED course I gave the patient Zosyn to cover bronchitis / COPD. Also ordered Duoneb and Solumedrol. She was also given Aspirin since Troponin was elevated. I ordered a CTA to r/o PE. It was difficult getting an IV access. Finally IV access was obtained via ultrasound by one of the nurses. CTA impression: Negative for PE. I discussed the case with Dr. Melendez and accepted the patient for admission. - Diagnoses Differential Diagnosis/HQI/PQRI: Positive: Asthma, Bronchitis, CHF, COPD Exacerbation, MA, Pneumonia Provider Diagnoses: COPD exacerbation - Physician Notifications Discussed Care of Patient With: Aby Melendez - hospitalist Time Discussed With Above Provider: 17:40 Instructed by Provider To: Admit As Observation - I discussed the patients case with Dr. Melendez, who accepts the patient for admission. Discharge ED - Sign-Out/Discharge Documenting (check all that apply): Patient Departure - Patient accepted for admission by Dr. Melendez. - Discharge Plan Condition: Stable Disposition: ADMITTED TO [facility] - Billing Disposition and Condition Condition: STABLE Disposition: Admitted to [facility] - Attestation Statements Document Initiated by Janina: Yes Documenting Scribe: Lucia Mendoza Provider For Whom Janina is Documenting (Include Credential): Dr. Ajit Thao MD Scribe Attestation: Lucia Gauthier, scribed for Dr. Ajit Thao MD on 10/27/19 at 0945. Scribe Documentation Reviewed: Yes Provider Attestation: The documentation as recorded by the Lucia ochoa accurately reflects the service I personally performed and the decisions made by me, Dr. Ajit Thao MD Status of Scribe Document: Viewed
[2019-10-26] MEDS ORDERED: cefTRIAXone(*) 1 GM in NS 0.9% 50 ML* 50 ML IVPB ONE (14:40)
[2019-10-26 15:06] LABS: ABS Basophils 0.1 10^3/ul (0-0.2); ABS Monocytes 0.5 10^3/ul (0-0.8); ABS Neutrophils 11.4 10^3/ul (1.5-7.7); Eosinophil % 0.1 %; Hematocrit 37 % (35-47); Hemoglobin 12.3 g/dL (12.0-16.0); Lymphocyte % 7.6 %; Mean Corpuscular HGB Conc 34 g/dL (31-36); Mean Corpuscular Hemoglobin 30 pg (27-31); Mean Corpuscular Volume 89 fL (80-97); Mean Platelet Volume 6.9 fL (7.4-10.4); Platelet Count 560 10^3/uL (150-450); Red Blood Count 4.13 10^6 /uL (3.70-4.87); Red Cell Distribution Width 16 % (10-15)
[2019-10-26 15:21] LABS: Activated Partial Thrombo Time 32.9 seconds (26.0-38.0); INR 0.98 (0.82-1.09)
[2019-10-26 15:29] LABS: Albumin 3.8 g/dL (3.2-5.2); Albumin/Globulin Ratio 1.1 (1-3); BUN/Creatinine Ratio 14.4 (8-20); C Reactive Protein 59.34 mg/L (<8.01); Calcium 9.5 mg/dL (8.6-10.3); EGFR African American 74.1 (>60); EGFR Non-African American 61.2 (>60); Globulin 3.5 g/dL (2-4); Potassium 4.3 mmol/L (3.5-5.0); Total Bilirubin 0.3 mg/dL (0.2-1.0); Total Protein 7.3 g/dL (6.4-8.9)
[2019-10-26 15:31] LABS: CKMB ng/mL 3.1 ng/mL (0.6-6.3)
[2019-10-26 15:34] LABS: Troponin I 0.05 ng/mL (<0.03)
[2019-10-26] MEDS ORDERED: Iodixanol* (CONTRAST) 320 MG/ML 100 ML SDV IV ONE (16:00)
[2019-10-26] MEDS ORDERED: Albuterol/Ipratropium NEB.SOL* Albuterol 2.5 MG/Ipratropium 0.5 MG 3 ML INH ONE (18:04)
[2019-10-26] MEDS ORDERED: methylPREDNISolone 125 MG* 2 ML VIAL IV ONE (18:04)
[2019-10-26] MEDS ORDERED: Aspirin 81 mg CHEW TAB* 81 MG TAB.CHEW PO ONE (18:08)
[2019-10-26] MEDS ORDERED: Docusate CAP* 100 MG PO PRN (18:55)
[2019-10-26] MEDS ORDERED: GuaiFENesin DM 100 mg/10 mg in 5 ML UDC PO PRN (18:56)
[2019-10-26] MEDS ORDERED: Nicotine* 2MG (FRUIT FLAVOR) GUM PO PRN (19:05)
[2019-10-26] MEDS: Albuterol/Ipratropium NEB.SOL* Albuterol 2.5 MG/Ipratropium 0.5 MG 3 ML INH SCH ×3 (19:08→22:57)
[2019-10-26 19:30] LABS: Troponin I 0.05 ng/mL (<0.03)
--- NOTE | 2019-10-26 20:57 | HP ---
CC: Dr. Winston * [facility] MEDICINE HISTORY AND PHYSICAL: DATE OF ADMISSION: 10/26/19 PRIMARY CARE PHYSICIAN: Dr. Winston. ATTENDING PHYSICIAN: Dr. Melendez * (dictation provided by Urvashi Spencer NP). CHIEF COMPLAINT: Shortness of breath. HISTORY OF PRESENT ILLNESS: Ms. Augustin is a 74-year-old female with a past medical history of primary lateral sclerosis, who is wheelchair bound. She has a long-term history of a pack-a-day smoking with associated COPD. She has had 3 recent admissions to our hospital, first in May for urinary tract infection and sepsis and then twice in August for COPD. During the last admission on , the patient had an elevated troponin mildly, which was attributed to demand ischemia. She had a stress test that was negative and an echocardiogram that showed no wall motion or valvular abnormalities. Ms. Augustin states that she began to feel unwell last night with shortness of breath; however, she also reports that a few days ago she fell and broke her ankle and was assessed at one of our local urgent care facilities with plan for followup with Dr. Mitchell next Sunday. The patient again states she was short of breath last evening and through the night and therefore decided to come to the emergency room today. She denies chest pain. She denies nausea or vomiting. She did have diarrhea x1 since this morning. She has been tolerating oral intake well. She states she normally wears 2 L nasal cannula at night only. In the emergency room, Ms. Augustin was initially needing 4 L of oxygen. She has been treated with Solu-Medrol and is now down to 2 L nasal cannula with an O2 saturation greater than 90%. Her labs show a very mild leukocytosis at 13, though she herself did not state this. According to her medication list, she was recently started on a prednisone taper as of 10/24/19 and so this may affect her white count. She has an elevated troponin at 0.05, but it is of unclear significance. Her CRP is 59.34. Her chest x-ray showed no acute intrathoracic process and a chest thorax CTA is pending. Given the fact that she had an ankle fracture, she did have a venous Doppler study, that was a limited study but showed no evidence of DVT. PAST MEDICAL HISTORY: 1. Primary lateral sclerosis with functional quadriplegia, wheelchair bound. 2. Arthritis. 3. Chronic muscle spasms with baclofen pump. 4. COPD with long-term smoking history, 2 L nasal cannula at night. 5. Left kidney cancer, status post nephrectomy. 6. Colon cancer surgery. 7. Chronic osteoarthritis. 8. Radiation for skin cancer. 9. Chronic urinary incontinence. MEDICATIONS: Today are: 1. Docusate 100 mg p.o. b.i.d. p.r.n. 2. Dual nebulizers q.6 hours p.r.n. 3. Prednisone currently at 40 mg tapering. 4. Guaifenesin 400 mg p.o. daily p.r.n. 5. Incruse Ellipta 1 inhalation daily. 6. Salmeterol Diskus 1 puff inhaled b.i.d. 7. Amlodipine 10 mg p.o. q.p.m. 8. Primidone 250 mg p.o. b.i.d. 9. Mirtazapine 15 mg p.o. at bedtime. 10. Atorvastatin 20 mg p.o. q.p.m. 11. Tolterodine 4 mg p.o. daily. 12. Mirabegron 50 mg p.o. daily. 13. Losartan 100 mg p.o. daily. 14. Fluoxetine 20 mg p.o. q.a.m. 15. Cyanocobalamin 2500 mcg p.o. daily. 16. Aspirin 81 mg p.o. daily. ALLERGIES: CODEINE. FAMILY HISTORY: The patient's mother is alive at 94. Father related to cancer and suicide. SOCIAL HISTORY: The patient is a continued pack-a-day smoker. She denies alcohol or drug use. She lives at home with supportive aide. She states that her sister Sue Holcomb would be her healthcare proxy. REVIEW OF SYSTEMS: A 14-point review of systems was completed with Ms. Augustin and all those not mentioned above were negative. PHYSICAL EXAMINATION GENERAL: Ms. Augustin is lying in the bed. She is in no acute distress. VITAL SIGNS: Temperature 100, heart rate 94, respiratory rate 18, O2 saturation 97% on 2 L nasal cannula, blood pressure 147/90. LUNGS: Coarse rhonchi and wheezing throughout. There is no accessory muscle use. HEART: S1, S2. No murmur, rub, or gallop, and regular. ABDOMEN: Soft, nontender with bowel sounds positive x4. We note that she does have a baclofen pump in place in the left upper quadrant. EXTREMITIES: No cyanosis or edema. NEURO: She is alert. She is oriented x3. She has limited to no movement of upper or lower extremities. Her face is symmetrical. Her pupils are dilated. SKIN: Intact. DIAGNOSTIC STUDIES/LAB DATA: Sodium 138, potassium 4.3, chloride 104, serum bicarbonate 24, BUN 13, creatinine 0.90, glucose 134, lactic acid 1.7. Troponin 0.05. CRP 59.34. WBC 13.0, hemoglobin 12.5, hematocrit 37, platelet count 560. She has had intermittent thrombocytosis in the past. Again, chest x-ray shows no acute intrathoracic process. EKG shows sinus rhythm with no evidence of ischemia. CTA chest is pending. Venous Doppler study shows no evidence of DVT. ASSESSMENT: Ms. Augustin is a 74-year-old female with a past medical history of primary lateral sclerosis and functional quadriplegia, who is wheelchair bound and a chronic pack-a-day smoker with chronic obstructive pulmonary disease, who presents to the hospital with concern for shortness of breath with suspected chronic obstructive pulmonary disease exacerbation. Our plans are for observation in the hospital for the followin. Shortness of breath: I suspect this is secondary to chronic obstructive pulmonary disease exacerbation based on her exam today. She has had Solu- Medrol in the ED with some good improvement already. Plan to continue with Solu -Medrol 40 mg IV b.i.d. She will have oxygen available as needed. She will have dual nebulizers q.4 hours and p.r.n. She will have azithromycin for coverage of atypical pneumonia. 2. Elevated troponin: The patient's troponin was recently elevated. She had a negative stress test and normal echocardiogram. Plan to monitor x3 and continue on telemetry unit. She is on aspirin. 3. Thrombocytosis: The patient has had thrombocytosis in the past. Plan to recheck in a.m. 4. Hypertension: Continue losartan. Also continue amlodipine. 5. Hyperlipidemia: Continue atorvastatin. 6. DVT prophylaxis: Heparin subcutaneously. 7. Code status is DNR and a MOLST was completed with the patient at bedside. She is also DNI. 8. Disposition to medical floor with telemetry. TIME SPENT: Approximately 60 minutes was spent on the admission of this patient , more than half the time was spent with the patient at the bedside reviewing the events leading up to this hospitalization, performing the physical examination, and reviewing my plan of care. URVASHI SPENCER NP [id number]/[facility] #: [id number] TYLER
[2019-10-26] MEDS: Acetaminophen TAB* 325 MG PO PRN (21:24)
[2019-10-26] MEDS: Mirtazapine TAB* 15 MG PO SCH (21:24)
[2019-10-26] MEDS: Heparin VIAL(*) 5000 UNITS/ML VIAL (FIVE THOUSAND) SUBCUT SCH (21:24)
[2019-10-26] MEDS: Primidone TAB(*) 250 MG PO SCH (21:25)
[2019-10-26 23:03] LABS: Troponin I 0.05 ng/mL (<0.03)
[2019-10-27] MEDS: Albuterol/Ipratropium NEB.SOL* Albuterol 2.5 MG/Ipratropium 0.5 MG 3 ML INH SCH ×6 (03:26→23:31)
[2019-10-27] MEDS: Heparin VIAL(*) 5000 UNITS/ML VIAL (FIVE THOUSAND) SUBCUT SCH ×3 (05:20→22:13)
[2019-10-27] MEDS ORDERED: Albuterol/Ipratropium NEB.SOL* Albuterol 2.5 MG/Ipratropium 0.5 MG 3 ML INH PRN (05:30)
[2019-10-27] MEDS: Aspirin EC TAB* 81 MG TAB.EC PO SCH (09:36)
[2019-10-27] MEDS: Azithromycin TAB* 250 MG PO SCH (09:36)
[2019-10-27] MEDS: methylPREDNISolone SOD 40 MG* 1 ML VIAL IV SCH ×2 (09:37→22:14)
[2019-10-27] MEDS: Losartan TAB* 25 MG PO SCH (09:37)
[2019-10-27] MEDS: FLUoxetine CAP* 20 MG PO SCH (09:37)
[2019-10-27] MEDS: Acetaminophen TAB* 325 MG PO PRN ×3 (09:37→22:20)
[2019-10-27] MEDS: Nicotine PATCH 21 MG/24 HR* PATCH TRANSDERM SCH (09:38)
[2019-10-27] MEDS: Primidone TAB(*) 250 MG PO SCH ×2 (09:39→22:19)
--- NOTE | 2019-10-27 11:52 | PN ---
Subjective Date of Service: 10/27/19 Interval History: Ms. Augustin is feeling a little better today. SOB is somewhat improved, but still present. She has been hospitalized in the past for difficulty breathing. Denies cough or CP. No concerns from nursing. Family History: Unchanged from Admission Social History: Unchanged from Admission Past Medical History: Unchanged from Admission Objective Active Medications: Acetaminophen (Tylenol Tab*) 650 mg PO Q6H PRN PAIN - MILD Albuterol/Ipratropium (Duoneb (Albuterol 2.5 Mg/Ipratropium 0.5 Mg)) 1 neb INH Q4H SUNDAR Albuterol/Ipratropium (Duoneb (Albuterol 2.5 Mg/Ipratropium 0.5 Mg)) 1 neb INH Q4H PRN SOB/WHEEZING Amlodipine Besylate (Norvasc Tab*) 10 mg PO QPM SUNDAR Aspirin (Aspirin Ec Tab*) 81 mg PO DAILY [facility] Atorvastatin Calcium (Lipitor*) 20 mg PO QPM [facility] Azithromycin (Zithromax Tab*) 250 mg PO DAILY [facility] Docusate Sodium (Colace Cap*) 100 mg PO BID PRN CONSTIPATION Fluoxetine HCl (Prozac Cap*) 20 mg PO QAM SUNDAR Guaifenesin/Dextromethorphan (Robitussin Dm 100 Mg/10 Mg In 5 Ml) 10 ml PO Q4H PRN COUGH Heparin Sodium (Porcine) (Heparin Vial(*)) 5,000 units SUBCUT Q8HR [facility] Ceftriaxone Sodium 1 gm/ (Sodium Chloride) 50 mls @ 100 mls/hr IVPB Q24H [facility] Losartan Potassium (Cozaar Tab*) 100 mg PO DAILY [facility] Methylprednisolone Sodium Succinate (Solu-Medrol 40 Mg) 40 mg IV Q12H [facility] Mirtazapine (Remeron Tab*) 15 mg PO BEDTIME [facility] Nicotine (Nicotine Patch 21 Mg/24 Hr*) 1 patch TRANSDERM DAILY@0800 [facility] Nicotine Polacrilex (Nicotine Gum*) 2 mg PO Q2H PRN CRAVING Primidone (Mysoline Tab(*)) 250 mg PO BID [facility] Vital Signs - 8 hr 10/27/19 10/27/19 10/27/19 07:15 07:23 10:40 Temperature 98.2 F Pulse Rate 91 93 85 Respiratory 20 18 17 Rate Blood Pressure 165/73 (mmHg) O2 Sat by Pulse 97 98 96 Oximetry 10/27/19 11:15 Temperature 98.0 F Pulse Rate 89 Respiratory 20 Rate Blood Pressure 149/64 (mmHg) O2 Sat by Pulse 96 Oximetry Oxygen Devices in Use Now: Nasal Cannula - 2L Appearance: Elderly female lying in bed in NAD Ears/Nose/Mouth/Throat: Mucous Membranes Moist Neck: NL Appearance and Movements; NL JVP, Trachea Midline Respiratory: Symmetrical Chest Expansion and Respiratory Effort, - - Rhonchi throughout Cardiovascular: NL Sounds; No Murmurs; No JVD, RRR Abdominal: NL Sounds; No Tenderness; No Distention Extremities: - - Mild nonpitting BLE Neurological: Alert and Oriented x 3 Lines/Tubes/Other Access: Clean, Dry and Intact Peripheral IV Nutrition: Taking PO's Result Diagrams: 10/27/19 12:08 10/26/19 14:54 Assess/Plan/Problems-Billing Assessment: Ms. Augustin is a 74 yo F with PMH of primary lateral sclerosis with functional quadriplegia, chronic spasms with implanted baclofen pump, COPD on 2L at HS; who presented to the ED with c/o SOB and was found to have a COPD exacerbation with questionable pneumonia. - Patient Problems (1) Community acquired pneumonia Code(s): J18.9 - PNEUMONIA, UNSPECIFIED ORGANISM Comment: - CT chest showing right basilar infiltrate concerned for pneumonia - Continue ceftriaxone (day 1), azithromycin (day 15) (2) COPD exacerbation Code(s): J44.1 - CHRONIC OBSTRUCTIVE PULMONARY DISEASE W (ACUTE) EXACERBATION Comment: - Baseline oxygen requirement is 2L at HS - Secondary to pneumonia - Previously on prednisone taper prior to admission - Continue Solu-Medrol, Dulera, Incruse Ellipta, nebs (3) Sepsis Comment: - Met criteria on admission with leukocytosis and tachycardia - Source is pneumonia - Plan as above (4) Elevated troponin Code(s): R79.89 - OTHER SPECIFIED ABNORMAL FINDINGS OF BLOOD CHEMISTRY Comment : - Chronically elevated - No EKG changes or CP - Suspect secondary to demand from sepsis (5) Thrombocytosis Comment: - Platelets elevated during previous admissions - Suspect reactive, secondary to pneumonia (6) Hypertension Code(s): I10 - ESSENTIAL (PRIMARY) HYPERTENSION Comment: - Slightly hypertensive - Continue amlodipine, losartan (7) Primary lateral sclerosis Code(s): G12.23 - PRIMARY LATERAL SCLEROSIS Comment: - With functional quadriplegia - Implanted baclofen pump - Continue primidone (8) Hyperlipidemia Code(s): E78.5 - HYPERLIPIDEMIA, UNSPECIFIED Comment: - Continue atorvastatin (9) DVT prophylaxis Code(s): Z29.9 - ENCOUNTER FOR PROPHYLACTIC MEASURES, UNSPECIFIED Comment: - Heparin SQ (10) DNR (do not resuscitate) Comment: Status and Disposition: Inpatient. Anticipate d/c home when medically stable. Attending: Elvis Perez
[2019-10-27 12:15] LABS: Hematocrit 36 % (35-47); Hemoglobin 11.9 g/dL (12.0-16.0); Mean Corpuscular HGB Conc 33 g/dL (31-36); Mean Corpuscular Hemoglobin 30 pg (27-31); Mean Corpuscular Volume 90 fL (80-97); Mean Platelet Volume 7.1 fL (7.4-10.4); Platelet Count 475 10^3/uL (150-450); Red Blood Count 3.97 10^6 /uL (3.70-4.87); Red Cell Distribution Width 16 % (10-15); White Blood Count 14.7 10^3/uL (3.5-10.8)
[2019-10-27 12:37] LABS: Urine Appearance Clear; Urine Bilirubin Negative (Negative); Urine Blood Negative (Negative); Urine Color Yellow; Urine Glucose Negative (Negative); Urine Ketones Negative (Negative); Urine Nitrite Negative (Negative); Urine Protein Negative (Negative); Urine Specific Gravity 1.021 (1.010-1.030); Urine Urobilinogen Negative (Negative)
[2019-10-27 13:13] LABS: ABS Basophils 0.1 10^3/ul (0-0.2); ABS Eosinophils 0.1 10^3/ul (0-0.6); ABS Lymphocytes 0.8 10^3/ul (1.0-4.8); ABS Monocytes 0.7 10^3/ul (0-0.8); Eosinophil % 0.7 %; Lymphocyte % 5.4 %
[2019-10-27] MEDS: cefTRIAXone(*) 1 GM in NS 0.9% 50 ML* 50 ML IVPB SCH (13:53)
[2019-10-27] MEDS: amLODIPine TAB* 5 MG PO SCH (17:50)
[2019-10-27] MEDS: Atorvastatin* 20 MG TAB PO SCH (17:50)
[2019-10-27] MEDS: Mometasone/Formoter 200/5 MDI INH SCH (20:16)
[2019-10-27] MEDS: Mirtazapine TAB* 15 MG PO SCH (22:19)
[2019-10-27] MEDS: Nicotine Patch Removal NOTE PATCH OFF SCH (22:23)
[2019-10-28] MEDS: Heparin VIAL(*) 5000 UNITS/ML VIAL (FIVE THOUSAND) SUBCUT SCH ×3 (05:55→21:41)
[2019-10-28] MEDS: Albuterol/Ipratropium NEB.SOL* Albuterol 2.5 MG/Ipratropium 0.5 MG 3 ML INH SCH ×6 (06:03→23:15)
[2019-10-28] MEDS: Mometasone/Formoter 200/5 MDI INH SCH ×2 (07:57→19:57)
[2019-10-28] MEDS: SPIRIVA Respimat* (tiotropium) 2.5 mcg/inh Inhaler INH SCH (07:58)
[2019-10-28 08:54] LABS: ABS Basophils 0.1 10^3/ul (0-0.2); ABS Eosinophils 0.1 10^3/ul (0-0.6); ABS Monocytes 0.7 10^3/ul (0-0.8); ABS Neutrophils 8.3 10^3/ul (1.5-7.7); Hematocrit 36 % (35-47); Hemoglobin 11.8 g/dL (12.0-16.0); Lymphocyte % 17.9 %; Mean Corpuscular HGB Conc 33 g/dL (31-36); Mean Corpuscular Hemoglobin 30 pg (27-31); Mean Corpuscular Volume 89 fL (80-97); Platelet Count 496 10^3/uL (150-450); Red Blood Count 3.99 10^6 /uL (3.70-4.87); Red Cell Distribution Width 16 % (10-15); White Blood Count 11.2 10^3/uL (3.5-10.8)
[2019-10-28] MEDS: Losartan TAB* 25 MG PO SCH (09:35)
[2019-10-28] MEDS: methylPREDNISolone SOD 40 MG* 1 ML VIAL IV SCH ×2 (09:35→21:41)
[2019-10-28] MEDS: Aspirin EC TAB* 81 MG TAB.EC PO SCH (09:37)
[2019-10-28] MEDS: FLUoxetine CAP* 20 MG PO SCH (09:37)
[2019-10-28] MEDS: Azithromycin TAB* 250 MG PO SCH (09:38)
[2019-10-28] MEDS: Primidone TAB(*) 250 MG PO SCH ×2 (09:38→21:41)
[2019-10-28] MEDS: Acetaminophen TAB* 325 MG PO PRN ×2 (09:39→15:58)
[2019-10-28] MEDS: Nicotine PATCH 21 MG/24 HR* PATCH TRANSDERM SCH (09:40)
--- NOTE | 2019-10-28 12:51 | PN ---
Subjective Date of Service: 10/28/19 Interval History: Ms. Augustin is feeling a little better today. SOB and cough are slightly improved. She has not been able to bring up any sputum. Remains on 1.5L NC. She denies CP. Has been eating well. She does have 24/7 care at home which she reports she will have until she "runs out of money." No concerns from nursing. Family History: Unchanged from Admission Social History: Unchanged from Admission Past Medical History: Unchanged from Admission Objective Active Medications: Acetaminophen (Tylenol Tab*) 650 mg PO Q6H PRN PAIN - MILD Albuterol/Ipratropium (Duoneb (Albuterol 2.5 Mg/Ipratropium 0.5 Mg)) 1 neb INH Q4H SUNDAR Albuterol/Ipratropium (Duoneb (Albuterol 2.5 Mg/Ipratropium 0.5 Mg)) 1 neb INH Q4H PRN SOB/WHEEZING Amlodipine Besylate (Norvasc Tab*) 10 mg PO QPM SUNDAR Aspirin (Aspirin Ec Tab*) 81 mg PO DAILY SUNDAR Atorvastatin Calcium (Lipitor*) 20 mg PO QPM SUNDAR Azithromycin (Zithromax Tab*) 250 mg PO DAILY SUNDAR Docusate Sodium (Colace Cap*) 100 mg PO BID PRN CONSTIPATION Fluoxetine HCl (Prozac Cap*) 20 mg PO QAM SUNDAR Guaifenesin/Dextromethorphan (Robitussin Dm 100 Mg/10 Mg In 5 Ml) 10 ml PO Q4H PRN COUGH Heparin Sodium (Porcine) (Heparin Vial(*)) 5,000 units SUBCUT Q8HR [facility] Ceftriaxone Sodium 1 gm/ (Sodium Chloride) 50 mls @ 100 mls/hr IVPB Q24H [facility] Losartan Potassium (Cozaar Tab*) 100 mg PO DAILY [facility] Methylprednisolone Sodium Succinate (Solu-Medrol 40 Mg) 40 mg IV Q12H [facility] Mirtazapine (Remeron Tab*) 15 mg PO BEDTIME [facility] Mometasone Furoate/Formoterol Fumar (Dulera 200/5 Mdi*) 2 puff INH BID [facility] Nicotine (Nicotine Patch 21 Mg/24 Hr*) 1 patch TRANSDERM DAILY@0800 SUNDAR Nicotine Polacrilex (Nicotine Gum*) 2 mg PO Q2H PRN CRAVING Primidone (Mysoline Tab(*)) 250 mg PO BID [facility] Tiotropium [place] (Spiriva Respimat 2.5 Mcg) 2 puff INH DAILY [facility] Vital Signs - 8 hr 10/28/19 10/28/19 10/28/19 07:15 07:47 07:54 Temperature 98.8 F Pulse Rate 86 86 86 Respiratory 22 20 20 Rate Blood Pressure 144/73 (mmHg) O2 Sat by Pulse 98 96 96 Oximetry 10/28/19 10/28/19 11:02 11:15 Temperature 98.6 F Pulse Rate 85 83 Respiratory 17 20 Rate Blood Pressure 146/62 (mmHg) O2 Sat by Pulse 97 99 Oximetry Oxygen Devices in Use Now: Nasal Cannula - 1.5L Appearance: Elderly female lying in bed in NAD Ears/Nose/Mouth/Throat: Mucous Membranes Moist Neck: NL Appearance and Movements; NL JVP, Trachea Midline Respiratory: Symmetrical Chest Expansion and Respiratory Effort, - - Rhonchi throughout Cardiovascular: NL Sounds; No Murmurs; No JVD, RRR Abdominal: NL Sounds; No Tenderness; No Distention Extremities: - - Mild nonpitting LLE Neurological: Alert and Oriented x 3 Lines/Tubes/Other Access: Clean, Dry and Intact Peripheral IV Nutrition: Taking PO's Result Diagrams: 10/28/19 08:33 10/26/19 14:54 Assess/Plan/Problems-Billing Assessment: Ms. Augustin is a 74 yo F with PMH of primary lateral sclerosis with functional quadriplegia, chronic spasms with implanted baclofen pump, COPD on 2L at HS; who presented to the ED with c/o SOB and was found to have a COPD exacerbation with questionable pneumonia. - Patient Problems (1) Community acquired pneumonia Code(s): J18.9 - PNEUMONIA, UNSPECIFIED ORGANISM Comment: - Still with significant rhonchi on exam - CT chest showing right basilar infiltrate concerned for pneumonia - Continue ceftriaxone (day 2/7), azithromycin (day 2/5) (2) COPD exacerbation Code(s): J44.1 - CHRONIC OBSTRUCTIVE PULMONARY DISEASE W (ACUTE) EXACERBATION Comment: - Baseline oxygen requirement is 2L at HS - Secondary to pneumonia - Previously on prednisone taper prior to admission - Continue Dulera, Incruse Ellipta, nebs; change from Solu-Medrol to prednisone tomorrow (3) Sepsis Comment: - Met criteria on admission with leukocytosis and tachycardia - Source is pneumonia - Plan as above (4) Elevated troponin Code(s): R79.89 - OTHER SPECIFIED ABNORMAL FINDINGS OF BLOOD CHEMISTRY Comment : - Chronically elevated - No EKG changes or CP - Suspect secondary to demand from sepsis (5) Thrombocytosis Comment: - Platelets elevated during previous admissions - Suspect reactive, secondary to pneumonia (6) Hypertension Code(s): I10 - ESSENTIAL (PRIMARY) HYPERTENSION Comment: - Slightly hypertensive - Continue amlodipine, losartan (7) Primary lateral sclerosis Code(s): G12.23 - PRIMARY LATERAL SCLEROSIS Comment: - With functional quadriplegia - Implanted baclofen pump - Continue primidone (8) Hyperlipidemia Code(s): E78.5 - HYPERLIPIDEMIA, UNSPECIFIED Comment: - Continue atorvastatin (9) DVT prophylaxis Code(s): Z29.9 - ENCOUNTER FOR PROPHYLACTIC MEASURES, UNSPECIFIED Comment: - Heparin SQ (10) DNR (do not resuscitate) Comment: Status and Disposition: Inpatient. Anticipate d/c home when medically stable, hopefully 1-2 more days. Attending: Elvis Perez
[2019-10-28] MEDS: cefTRIAXone(*) 1 GM in NS 0.9% 50 ML* 50 ML IVPB SCH (14:24)
--- OUTSIDE RECORDS SUMMARY | 2019-10-28 16:05 | XMS REPORT ---
:1945 Author Organization [facility] Care Team Providers Name Role Phone Unavailable Unavailable Unavailable Problems Condition Condition Condition Status Onset Resolution Last Treating Comments Name Details Category Date Date Treatment Clinician Date Pain frequent Pain Mgmt Resolve 2018-112019-10-13 Fre[place] pain d 12-02 10:23:00 [place] 10:30: [id number] 00 Respiratory dyspnea Respirator Active 2018-11 Freida present y 12-02 [place] 10:30: [id number] 00 Respiratory oxygen Respirator Active 2018-11 Freida treatments y 12-02 [place] in home 10:30: [id number] 00 Respiratory knowledge/s Respirator Active 2018-11 Freida kill y 12-02 [place] deficit: pt 10:30: [id number] 00 Respiratory knowledge/s Respirator Active 2018-11 Freida kill y 12-02 [place] deficit: cg 10:30: [id number] 00 Respiratory lung sounds Respirator Active 2018-11 Fre[place] deficit y 12-02 [place] 10:30: [id number] 00 Respiratory smoker Respirator Active 2018-11 Freida y 12-02 [place] 10:30: [id number] 00 Respiratory nebulizer Respirator Active 2018-11 Freida treatment y 12-02 [place] in home 10:30: [id number] 00 Endo/Benjamin anti-coagul Endo/Benjamin Resolve 2018-112019-10-06 Freida ation d 12-02 13:19:00 [place] therapy 10:30: [id number] 00 Sensory impaired Sensory Active 2018-11 Freida hearing 12-02 [place] 10:30: [id number] 00 Integument skin Integument Resolve 2018-112019-10-08 Freida integrity d 12-02 14:40:00 [place] risk 10:30: [id number] 00 Nutrition nutritional Nutrition Resolve 2018-112019-10-13 [place] restriction d 12-02 10:23:00 [place] s 10:30: [id number] 00 Elimination urinary Eliminatio Resolve 2018-112019-10-06 Freida incontinenc n d 12-02 13:19:00 [place] e 10:30: [id number] 00 Neuro confusion Neuro/Emot Active 2018-11 Fre[place] present ion 12-02 [place] 10:30: [id number] 00 Neuro anxiety Neuro/Emot Active 2018-11 Freida present ion 12-02 [place] 10:30: [id number] 00 Neuro depressive Neuro/Emot Active 2018-11 Freida feelings ion 12-02 [place] present 10:30: [id number] 00 Neuro impaired Neuro/Emot Active 2018-11 Freida decision-ma ion 12-02 [place] claritza 10:30: [id number] 00 Activity ADL Activity Active 2018-11 Freida assistance 12-02 [place] required 10:30: [id number] 00 Activity self-care Activity Resolve 2018-112019-10-06 [place] deficit d 12-02 13:19:00 [place] 10:30: [id number] 00 Safety cannot be Safety Active 2018-11 Freida left alone 12-02 [place] 10:30: [id number] 00 Safety knowledge/s Safety Resolve 2018-112019-10-16 [place] kill d 12-02 14:28:00 [place] deficit: pt 10:30: [id number] 00 Safety fall risk Safety Resolve 2018-112019-10-10 Freida factor d 12-02 14:55:00 [place] present 10:30: [id number] 00 Safety risk for Safety Resolve 2018-112019-10-10 Fre[place] hospitaliza d 12-02 14:55:00 [place] tion 10:30: [id number] 00 Medication oral med Meds Resolve 2018-112019-10-13 [place] assistance d 12-02 10:23:00 [place] required 10:30: [id number] 00 Musculoskel transfer Musculoske Resolve 2018-112019-10-13 Freida etal assistance letal d 12-02 10:23:00 [place] required 10:30: [id number] 00 Musculoskel requires Musculoske Resolve 2018-112019-10-13 Freida etal human letal d 12-02 10:23:00 [place] assist to 10:30: [id number] leave home 00 Cardio edema Cardiovasc Active 2018-11 Radha ular -15 [place] 14:55: RN 00 Safety risk for Safety Resolve 2018-112019-10-16 Radha hospitaliza d 18 14:28:00 [place] tion 10:23: RN 00 Medication oral med Meds Active 2018-11 Radha assistance 12-16 [place] required 14:28: RN 00 Safety knowledge/s Safety Active 2018-11 Evelyn kill 12-17 [place] deficit: pt 10:00: [id number] 00 Safety risk for Safety Active 2018-11 Evelyn hospitaliza 12-17 [place] tion 10:00: [id number] 00 Social knowledge/s RUSLAN: Active 2018-11 Evelyn Services kill Social 12-17 [place] deficit - Services 10:00: [id number] pt 00 Safety can be left Safety Active 2018-11 Shanelle alone for 12-22 [place] only short 12:04: [id number] periods 00 Allergies, Adverse Reactions, Alerts Allergy Allergy Type Status Severity Reaction(s) Onset Inactive Treating Comments Name Date Date Clinician codeine Base Active Unknown Reaction 2019-03 [place] Ingredient Quan Medications Ordered Filled Start Stop Current Ordering Indication Dosage Frequency Signature Comments Components Medication Medication Date Date Medication? Clinician (SIG) Name Name FLUoxetine FLUoxetine 2018-11 Yes Jander Unknown Unknown 20 mg 20 mg 1-07 ,Cinthia capsule capsule atorvastati atorvastati 2018-11 Yes Jander Unknown Unknown n 20 mg n 20 mg - ,Cinthia tablet tablet ProAir HFA ProAir HFA 2018-11 Yes Jander Unknown Unknown 90 90 - Cinthia ELLISON mcg/actuati mcg/actuati on aerosol on aerosol inhaler inhaler Serevent Serevent 2018-11 Yes Jander Unknown Unknown Diskus 50 Diskus 50 1-07 Cinthia ELLISON mcg/dose mcg/dose powder for powder for inhalation inhalation Incruse Incruse 2018-11 Yes Jander Unknown Unknown Ellipta Ellipta -07 ,Cinthia 62.5 62.5 mcg/actuati mcg/actuati on powder on powder for for inhalation inhalation Detrol LA 4 Detrol LA 4 2018-11 Yes Jander Unknown Unknown mg mg 1-07 ,Cinthia capsule,ext capsule,ext ended ended release release Myrbetriq Myrbetriq 2018-11 Yes Jander Unknown Unknown 50 mg 50 mg 12-02 ,[place]inthia tablet,exte tablet,exte nded nded release release primidone primidone 2018-11 Yes Jander Unknown Unknown 250 mg 250 mg 12-02 ,[place]inthia tablet tablet Aspirin Low Aspirin Low 2018-11 Yes Jander Unknown Unknown Dose 81 mg Dose 81 mg 12-02 ,[place]inthia tablet,manny tablet,manny yed release yed release amLODIPine amLODIPine 2018-11 Yes Jander Unknown Unknown 10 mg 10 mg 12-02 ,[place]inthia tablet tablet losartan losartan 2018-11 Yes Jander Unknown Unknown 100 mg 100 mg 12-02 ,[place] tablet tablet cyanocobala cyanocobala 2018-11 Yes Jander Unknown Unknown min min 12-02 Cinthia ELLISON (vitamin (vitamin B-12) 2,500 B-12) 2,500 mcg tablet mcg tablet Compound W Compound W No Jander Unknown Unknown 17 % 17 % Cinthia ELLISON topical gel topical gel mirtazapine mirtazapine 2018-11 Yes Jander Unknown Unknown 15 mg 15 mg 12-02 Cinthia ELLISON tablet tablet Chest Chest 2018-11 Yes Jander Unknown Unknown Congestion- Congestion- 12-02 Cinthia ELLISON Cough Cough Relief 20 Relief 20 mg-400 mg mg-400 mg tablet tablet Colace 100 Colace 100 2018-11 Yes Jander Unknown Unknown mg capsule mg capsule 12-02 Cinthia ELLISON Miralax 17 Miralax 17 2018-11 Yes Jander Unknown Unknown gram/dose gram/dose 12-02 Cinthia ELLISON oral powder oral powder ipratropium ipratropium 2018-11 Yes Jander Unknown Unknown -albuterol -albuterol 12-06 Cinthia ELLISON 0.5 mg-3 0.5 mg-3 mg(2.5 mg mg(2.5 mg base)/3 mL base)/3 mL nebulizatio nebulizatio n soln n soln Oxygen Oxygen 2018-11 Yes Jander Unknown Unknown 12-02 Cinthia ELLISON predniSONE predniSONE 2018-11 Yes Jander Unknown Unknown 20 mg 20 mg 12-10 ,[place]inthia tablet tablet omeprazole omeprazole 2018-11 Yes Jander Unknown Unknown 20 mg 20 mg 12-10 Cinthia ELLISON capsule,del capsule,del ayed ayed release release fluticasone fluticasone 2019- Yes [place] Unknown Unknown propionate propionate 1- Cinthia ELLISON 50 50 mcg/actuati mcg/actuati on nasal on nasal spray,suspe spray,suspe nsion nsion Vital Signs Vital Name Observation Time Observation Value Comments SYSTOLIC mm[Hg] 2019-10-24 18:09:06 142 mm[Hg] mm[Hg] Method: Sit DIASTOLIC mm[Hg] 2019-10-24 18:09:06 78 mm[Hg] mm[Hg] Method: Sit PULSE 2019-10-24 18:09:06 82 /min /min RESP RATE 2019-10-24 18:09:06 22 /min /min TEMP 2019-10-24 18:09:06 97.3 [degF] Procedures This patient has no known procedures. Results This patient has no known results.
--- OUTSIDE RECORDS SUMMARY | 2019-10-28 16:05 | XMS REPORT ---
:1945 Author Organization [facility] Care Team Providers Name Role Phone Unavailable Unavailable Unavailable Problems Condition Condition Condition Status Onset Resolution Last Treating Comments Name Details Category Date Date Treatment Clinician Date Pain frequent Pain Mgmt Resolve 2018-112019-10-13 [place] pain d 12-02 10:23:00 [place] 10:30: [id number] 00 Respiratory dyspnea Respirator Active 2018-11 Fre[place] present y 12-02 [place] 10:30: [id number] 00 Respiratory oxygen Respirator Active 2018-11 [place] treatments y 12-02 [place] in home 10:30: [id number] 00 Respiratory knowledge/s Respirator Active 2018-11 Fre[place] kill y 12-02 [place] deficit: pt 10:30: [id number] 00 Respiratory knowledge/s Respirator Active 2018-11 Fre[place] kill y 12-02 [place] deficit: cg 10:30: [id number] 00 Respiratory lung sounds Respirator Active 2018-11 [place] deficit y 12-02 [place] 10:30: [id number] 00 Respiratory smoker Respirator Active 2018-11 Freida y 12-02 [place] 10:30: [id number] 00 Respiratory nebulizer Respirator Active 2018-11 Fre[place] treatment y 12-02 [place] in home 10:30: [id number] 00 Endo/Benjamin anti-coagul Endo/Benjamin Resolve 2018-112019-10-06 [place] ation d 12-02 13:19:00 [place] therapy 10:30: [id number] 00 Sensory impaired Sensory Active 2018-11 Fre[place] hearing 12-02 [place] 10:30: [id number] 00 Integument skin Integument Resolve 2018-112019-10-08 Fre[place] integrity d 12-02 14:40:00 [place] risk 10:30: [id number] 00 Nutrition nutritional Nutrition Resolve 2018-112019-10-13 [place] restriction d 12-02 10:23:00 [place] s 10:30: [id number] 00 Elimination urinary Eliminatio Resolve 2018-112019-10-06 [place] incontinenc n d 12-02 13:19:00 [place] e 10:30: [id number] 00 Neuro confusion Neuro/Emot Active 2018-11 Fre[place] present ion 12-02 [place] 10:30: [id number] 00 Neuro anxiety Neuro/Emot Active 2018-11 Fre[place] present ion 12-02 [place] 10:30: [id number] 00 Neuro depressive Neuro/Emot Active 2018-11 Freida feelings ion 12-02 [place] present 10:30: [id number] 00 Neuro impaired Neuro/Emot Active 2018-11 [place] decision-ma ion 12-02 [place] claritza 10:30: [id number] 00 Activity ADL Activity Active 2018-11 Freida assistance 12-02 [place] required 10:30: [id number] 00 Activity self-care Activity Resolve 2018-112019-10-06 [place] deficit d 12-02 13:19:00 [place] 10:30: [id number] 00 Safety cannot be Safety Active 2018-11 Freida left alone 12-02 [place] 10:30: [id number] 00 Safety knowledge/s Safety Resolve 2018-112019-10-16 [place] kill d 12-02 14:28:00 [place] deficit: pt 10:30: [id number] 00 Safety fall risk Safety Resolve 2018-112019-10-10 Fre[place] factor d 12-02 14:55:00 [place] present 10:30: [id number] 00 Safety risk for Safety Resolve 2018-112019-10-10 Fre[place] hospitaliza d 12-02 14:55:00 [place] tion 10:30: [id number] 00 Medication oral med Meds Resolve 2018-112019-10-13 [place] assistance d 12-02 10:23:00 [place] required 10:30: [id number] 00 Musculoskel transfer Musculoske Resolve 2018-112019-10-13 [place] etal assistance letal d 12-02 10:23:00 [place] required 10:30: [id number] 00 Musculoskel requires Musculoske Resolve 2018-112019-10-13 Fre[place] etal human letal d 12-02 10:23:00 [place] assist to 10:30: [id number] leave home 00 Cardio edema Cardiovasc Active 2018-11 Radha ular -15 [place] 14:55: RN 00 Safety risk for Safety Resolve 2018-112019-10-16 Radha hospitaliza d 18 14:28:00 [place] tion 10:23: RN 00 Medication oral med Meds Active 2018-11 [place] assistance 12-16 [place] required 14:28: RN 00 Safety knowledge/s Safety Active 2018-11 Evelyn kill 12-17 [place] deficit: pt 10:00: [id number] 00 Safety risk for Safety Active 2018-11 Evelyn hospitaliza 12-17 [place] tion 10:00: [id number] 00 Social knowledge/s RUSLAN: Active 2018-11 Evelyn Services kill Social 12-17 [place] deficit - Services 10:00: [id number] pt 00 Safety can be left Safety Active 2018-11 Shanelle alone for 12-22 [place] only short 12:04: [id number] periods 00 Allergies, Adverse Reactions, Alerts Allergy Allergy Type Status Severity Reaction(s) Onset Inactive Treating Comments Name Date Date Clinician codeine Base Active Unknown Reaction 2019-03 [place] Ingredient Quan Medications Ordered Filled Start Stop [...] capsule,del ayed ayed release release fluticasone fluticasone 2018- Yes Catrachito Unknown Unknown propionate propionate - Cinthia ELLISON 50 50 mcg/actuati mcg/actuati on nasal on nasal spray,suspe spray,suspe nsion nsion Vital Signs Vital Name Observation Time Observation Value Comments SYSTOLIC mm[Hg] 2019-10-22 18:09:04 130 mm[Hg] mm[Hg] Method: Sit DIASTOLIC mm[Hg] 2019-10-22 18:09:04 70 mm[Hg] mm[Hg] Method: Sit PULSE 2019-10-22 18:09:04 72 /min /min RESP RATE 2019-10-22 18:09:04 18 /min /min TEMP 2019-10-22 18:09:04 97 [degF] Procedures This patient has no known procedures. Results This patient has no known results.
--- OUTSIDE RECORDS SUMMARY | 2019-10-28 16:05 | XMS REPORT ---
:1945 Author Organization [facility] Care Team Providers Name Role Phone Unavailable Unavailable Unavailable Problems Condition Condition Condition Status Onset Resolution Last Treating Comments Name Details Category Date Date Treatment Clinician Date Pain frequent Pain Mgmt Resolve 2018-112019-10-13 Fre[place] pain d 12-02 10:23:00 [place] 10:30: [id number] 00 Respiratory dyspnea Respirator Active 2018-11 Freida present y 12-02 [place] 10:30: [id number] 00 Respiratory oxygen Respirator Active 2018-11 [place] treatments y 12-02 [place] in home 10:30: [id number] 00 Respiratory knowledge/s Respirator Active 2018-11 Freida kill y 12-02 [place] deficit: pt 10:30: [id number] 00 Respiratory knowledge/s Respirator Active 2018-11 Freida kill y 12-02 [place] deficit: cg 10:30: [id number] 00 Respiratory lung sounds Respirator Active 2018-11 [place] deficit y 12-02 [place] 10:30: [id number] 00 Respiratory smoker Respirator Active 2018-11 Freida y 12-02 [place] 10:30: [id number] 00 Respiratory nebulizer Respirator Active 2018-11 [place] treatment y 12-02 [place] in home 10:30: [id number] 00 Endo/Benjamin anti-coagul Endo/Benjamin Resolve 2018-112019-10-06 [place] ation d 12-02 13:19:00 [place] therapy 10:30: [id number] 00 Sensory impaired Sensory Active 2018-11 Fre[place] hearing 12-02 [place] 10:30: [id number] 00 Integument skin Integument Resolve 2018-112019-10-08 Freida integrity d 12-02 14:40:00 [place] risk 10:30: [id number] 00 Nutrition nutritional Nutrition Resolve 2018-112019-10-13 [place] restriction d 12-02 10:23:00 [place] s 10:30: [id number] 00 Elimination urinary Eliminatio Resolve 2018-112019-10-06 [place] incontinenc n d 12-02 13:19:00 [place] e 10:30: [id number] 00 Neuro confusion Neuro/Emot Active 2018-11 Freida present ion 12-02 [place] 10:30: [id number] 00 Neuro anxiety Neuro/Emot Active 2018-11 Freida present ion 12-02 [place] 10:30: [id number] 00 Neuro depressive Neuro/Emot Active 2018-11 Freida feelings ion 12-02 [place] present 10:30: [id number] 00 Neuro impaired Neuro/Emot Active 2018-11 Freida decision-ma ion 12-02 [place] claritza 10:30: [id number] 00 Activity ADL Activity Active 2018-11 Freida assistance 12-02 [place] required 10:30: [id number] 00 Activity self-care Activity Resolve 2018-112019-10-06 [place] deficit d 12-02 13:19:00 [place] 10:30: [id number] 00 Safety cannot be Safety Active 2018-11 Fre[place] left alone 12-02 [place] 10:30: [id number] 00 Safety knowledge/s Safety Resolve 2018-112019-10-16 [place] kill d 12-02 14:28:00 [place] deficit: pt 10:30: [id number] 00 Safety fall risk Safety Resolve 2018-112019-10-10 Freida factor d 12-02 14:55:00 [place] present 10:30: [id number] 00 Safety risk for Safety Resolve 2018-112019-10-10 Freida hospitaliza d 12-02 14:55:00 [place] tion 10:30: [id number] 00 Medication oral med Meds Resolve 2018-112019-10-13 Freida assistance d 12-02 10:23:00 [place] required 10:30: [id number] 00 Musculoskel transfer Musculoske Resolve 2018-112019-10-13 [place] etal assistance letal d 12-02 10:23:00 [place] required 10:30: [id number] 00 Musculoskel requires Musculoske Resolve 2018-112019-10-13 Fre[place] etal human letal d 12-02 10:23:00 [place] assist to 10:30: [id number] leave home 00 Cardio edema Cardiovasc Active 2018-11 Radha ular -15 [place] 14:55: RN 00 Safety risk for Safety Resolve 2018-112019-10-16 Radha hospitaliza d 18 14:28:00 [place] tion 10:23: RN 00 Medication oral med Meds Active 2018-11 Radha assistance 12-16 [place] required 14:28: RN 00 Safety knowledge/s Safety Active 2018-11 Evelyn kill 12-17 [place] deficit: pt 10:00: [id number] 00 Safety risk for Safety Active 2018-11 Evelyn hospitaliza 12-17 [place] tion 10:00: [id number] 00 Social knowledge/s RUSLAN: Active 2018-11 Evelyn Services kill Social 12-17 [place] deficit - Services 10:00: [id number] pt 00 Safety can be left Safety Active 2018-11 Shanelle alone for 12-22 [place] only short 12:04: [id number] periods 00 Medication potential Meds Active 2018-11 Yesy story 12-27 Carrier RN significant 11:50: medication 00 issue Allergies, Adverse Reactions, Alerts Allergy Allergy Type Status Severity Reaction(s) Onset Inactive Treating Comments Name Date Date Clinician codeine Base Active Unknown Reaction 2019-03 [place] Ingredient Quan Medications Ordered Filled Start Stop Current Ordering Indication Dosage Frequency Signature Comments Components Medication Medication Date Date Medication? Clinician (SIG) Name Name FLUoxetine FLUoxetine 2018-11 Yes Jander Unknown Unknown 20 mg 20 mg 12-02 Cinthia ELLISON capsule capsule atorvastati atorvastati 2018-11 Yes Jander Unknown Unknown n 20 mg n 20 mg 12-02 Cinthia ELLISON tablet tablet ProAir HFA ProAir HFA 2018-11 Yes Jander Unknown Unknown 90 90 12-02 Cinthia ELLISON mcg/actuati mcg/actuati on aerosol on aerosol inhaler inhaler Serevent Serevent 2018-11 Yes Jander Unknown Unknown Diskus 50 Diskus 50 12-02 Cinthia ELLISON mcg/dose mcg/dose powder for powder for inhalation inhalation Incruse Incruse 2018-11 Yes Jander Unknown Unknown Ellipta Ellipta 12-02 Cinthia ELLISON 62.5 62.5 mcg/actuati mcg/actuati on powder on powder for for inhalation inhalation Detrol LA 4 Detrol LA 4 2018-11 Yes Jander Unknown Unknown mg mg 12-02 ,Cinthia capsule,ext capsule,ext ended ended release release [...] 20 mg 20 mg 12-10 Cinthia ELLISON tablet tablet omeprazole omeprazole 2018-11 Yes Jander Unknown Unknown 20 mg 20 mg 1-15 ,Cinthia capsule,del capsule,del ayed ayed release release fluticasone fluticasone 2018-11 Yes Catr[place]ito Unknown Unknown propionate propionate 1- ,Cinthia 50 50 mcg/actuati mcg/actuati on nasal on nasal spray,suspe spray,suspe nsion nsion Vital Signs Vital Name Observation Time Observation Value Comments SYSTOLIC mm[Hg] 2019-10-26 18:09:08 160 mm[Hg] mm[Hg] Method: Sit DIASTOLIC mm[Hg] 2019-10-26 18:09:08 80 mm[Hg] mm[Hg] Method: Sit PULSE 2019-10-26 18:09:08 106 /min /min RESP RATE 2019-10-26 18:09:08 20 /min /min TEMP 2019-10-26 18:09:08 98.2 [degF] Procedures This patient has no known procedures. Results This patient has no known results.
--- OUTSIDE RECORDS SUMMARY | 2019-10-28 16:05 | XMS REPORT ---
:1945 Author Organization [facility] Care Team Providers Name Role Phone Unavailable Unavailable Unavailable Problems Condition Condition Condition Status Onset Resolution Last Treating Comments Name Details Category Date Date Treatment Clinician Date Pain frequent Pain Mgmt Resolve 2018-112019-10-13 Fre[place] pain d 12-02 10:23:00 [place] 10:30: [id number] 00 Respiratory dyspnea Respirator Active 2018-11 Freida present y 12-02 [place] 10:30: [id number] 00 Respiratory oxygen Respirator Active 2018-11 Freida treatments y 12-02 [place] in home 10:30: [id number] 00 Respiratory knowledge/s Respirator Active 2018-11 Freida kill y 12-02 [place] deficit: pt 10:30: [id number] 00 Respiratory knowledge/s Respirator Active 2018-11 Freida kill y 12-02 [place] deficit: cg 10:30: [id number] 00 Respiratory lung sounds Respirator Active 2018-11 Freida deficit y 12-02 [place] 10:30: [id number] 00 Respiratory smoker Respirator Active 2018-11 Freida y 12-02 [place] 10:30: [id number] 00 Respiratory nebulizer Respirator Active 2018-11 Fre[place] treatment y 12-02 [place] in home 10:30: [id number] 00 Endo/Benjamin anti-coagul Endo/Benjamin Resolve 2018-112019-10-06 Fre[place] ation d 12-02 13:19:00 [place] therapy 10:30: [id number] 00 Sensory impaired Sensory Active 2018-11 Fre[place] hearing 12-02 [place] 10:30: [id number] 00 Integument skin Integument Resolve 2018-112019-10-08 Freida integrity d 12-02 14:40:00 [place] risk 10:30: [id number] 00 Nutrition nutritional Nutrition Resolve 2018-112019-10-13 [place] restriction d 12-02 10:23:00 [place] s 10:30: [id number] 00 Elimination urinary Eliminatio Resolve 2018-112019-10-06 Fre[place] incontinenc n d 12-02 13:19:00 [place] e 10:30: [id number] 00 Neuro confusion Neuro/Emot Active 2018-11 [place] present ion 12-02 [place] 10:30: [id number] 00 Neuro anxiety Neuro/Emot Active 2018-11 Fre[place] present ion 12-02 [place] 10:30: [id number] 00 Neuro depressive Neuro/Emot Active 2018-11 Fre[place] feelings ion 12-02 [place] present 10:30: [id number] 00 Neuro impaired Neuro/Emot Active 2018-11 Fre[place] decision-ma ion 12-02 [place] claritza 10:30: [id number] 00 Activity ADL Activity Active 2018-11 [place] assistance 12-02 [place] required 10:30: [id number] 00 Activity self-care Activity Resolve 2018-112019-10-06 [place] deficit d 12-02 13:19:00 [place] 10:30: [id number] 00 Safety cannot be Safety Active 2018-11 Fre[place] left alone 12-02 [place] 10:30: [id number] 00 Safety knowledge/s Safety Resolve 2018-112019-10-16 Fre[place] kill d 12-02 14:28:00 [place] deficit: pt 10:30: [id number] 00 Safety fall risk Safety Resolve 2018-112019-10-10 Fre[place] factor d 12-02 14:55:00 [place] present 10:30: [id number] 00 Safety risk for Safety Resolve 2018-112019-10-10 Fre[place] hospitaliza d 12-02 14:55:00 [place] tion 10:30: [id number] 00 Medication oral med Meds Resolve 2018-112019-10-13 [place] assistance d 12-02 10:23:00 [place] required 10:30: [id number] 00 Musculoskel transfer Musculoske Resolve 2018-112019-10-13 Fre[place] etal assistance letal d 12-02 10:23:00 [place] required 10:30: [id number] 00 Musculoskel requires Musculoske Resolve 2018-112019-10-13 Fre[place] etal human letal d 12-02 10:23:00 [place] assist to 10:30: [id number] leave home 00 Cardio edema Cardiovasc Active 2018-11 Radha ular -15 [place] 14:55: RN 00 Safety risk for Safety Resolve 2018-112019-10-16 Radha hospitaliza d 18 14:28:00 [place] tion 10:23: RN 00 Medication oral med Meds Active 2018-11 Radha assistance 12-16 [place] required 14:28: RN 00 Safety knowledge/s Safety Active 2018-11 Evelyn kill 12-17 [place] deficit: pt 10:00: [id number] 00 Safety risk for Safety Active 2018-11 Evelyn hospitaliza 12-17 [place] tion 10:00: [id number] 00 Social knowledge/s RUSLAN: Active 2018-11 Evelyn Services kill Social 12-17 [place] deficit - Services 10:00: [id number] pt 00 Safety can be left Safety Active 2018-11 Shanelle alone for 12-22 [place] only short 12:04: [id number] periods 00 Allergies, Adverse Reactions, Alerts Allergy Allergy Type Status Severity Reaction(s) Onset Inactive Treating Comments Name Date Date Clinician codeine Base Active Unknown Reaction 2019-03 [place] Ingredient Quan Medications Ordered Filled Start Stop [...]
--- OUTSIDE RECORDS SUMMARY | 2019-10-28 16:05 | XMS REPORT ---
:1945 Author Organization [facility] Care Team Providers Name Role Phone Unavailable Unavailable Unavailable Problems Condition Condition Condition Status Onset Resolution Last Treating Comments Name Details Category Date Date Treatment Clinician Date Pain frequent Pain Mgmt Resolve 2018-112019-10-13 [place] pain d 12-02 10:23:00 [place] 10:30: [id number] 00 Respiratory dyspnea Respirator Active 2018-11 [place] present y 12-02 [place] 10:30: [id number] 00 Respiratory oxygen Respirator Active 2018-11 [place] treatments y 12-02 [place] in home 10:30: [id number] 00 Respiratory knowledge/s Respirator Active 2018-11 [place] kill y 12-02 [place] deficit: pt 10:30: [id number] 00 Respiratory knowledge/s Respirator Active 2018-11 [place] kill y 12-02 [place] deficit: cg 10:30: [id number] 00 Respiratory lung sounds Respirator Active 2018-11 [place] deficit y 12-02 [place] 10:30: [id number] 00 Respiratory smoker Respirator Active 2018-11 Freida y 12-02 [place] 10:30: [id number] 00 Respiratory nebulizer Respirator Active 2018-11 [place] treatment y 12-02 [place] in home 10:30: [id number] 00 Endo/Benjamin anti-coagul Endo/Benjamin Resolve 2018-112019-10-06 [place] ation d 12-02 13:19:00 [place] therapy 10:30: [id number] 00 Sensory impaired Sensory Active 2018-11 [place] hearing 12-02 [place] 10:30: [id number] 00 Integument skin Integument Resolve 2018-112019-10-08 Fre[place] integrity d 12-02 14:40:00 [place] risk 10:30: [id number] 00 Nutrition nutritional Nutrition Resolve 2018-112019-10-13 [place] restriction d 12-02 10:23:00 [place] s 10:30: [id number] 00 Elimination urinary Eliminatio Resolve 2018-112019-10-06 [place] incontinenc n d 12-02 13:19:00 [place] e 10:30: [id number] 00 Neuro confusion Neuro/Emot Active 2018-11 [place] present ion 12-02 [place] 10:30: [id number] 00 Neuro anxiety Neuro/Emot Active 2018-11 Fre[place] present ion 12-02 [place] 10:30: [id number] 00 Neuro depressive Neuro/Emot Active 2018-11 Fre[place] feelings ion 12-02 [place] present 10:30: [id number] 00 Neuro impaired Neuro/Emot Active 2018-11 [place] decision-ma ion 12-02 [place] claritza 10:30: [id number] 00 Activity ADL Activity Active 2018-11 [place] assistance 12-02 [place] required 10:30: [id number] 00 Activity self-care Activity Resolve 2018-112019-10-06 [place] deficit d 12-02 13:19:00 [place] 10:30: [id number] 00 Safety cannot be Safety Active 2018-11 Fre[place] left alone 12-02 [place] 10:30: [id number] 00 Safety knowledge/s Safety Resolve 2018-112019-10-16 [place] kill d 12-02 14:28:00 [place] deficit: pt 10:30: [id number] 00 Safety fall risk Safety Resolve 2018-112019-10-10 [place] factor d 12-02 14:55:00 [place] present 10:30: [id number] 00 Safety risk for Safety Resolve 2018-112019-10-10 Fre[place] hospitaliza d 12-02 14:55:00 [place] tion 10:30: [id number] 00 Medication oral med Meds Resolve 2018-112019-10-13 [place] assistance d 12-02 10:23:00 [place] required 10:30: [id number] 00 Musculoskel transfer Musculoske Resolve 2018-112019-10-13 Fre[place] etal assistance letal d 12-02 10:23:00 [place] required 10:30: [id number] 00 Musculoskel requires Musculoske Resolve 2018-112019-10-13 Fre[place] etal human letal d 12-02 10:23:00 [place] assist to 10:30: [id number] leave home 00 Cardio edema Cardiovasc Active 2018-11 Radha ular 12-10 [place] 14:55: RN 00 Safety risk for Safety Resolve 2018-112019-10-16 Radha hospitaliza d 12-13 14:28:00 [place] tion 10:23: RN 00 Medication oral med Meds Active 2018-11 Radha assistance 12-16 [place] required 14:28: RN 00 Allergies, Adverse Reactions, Alerts Allergy Allergy Type Status Severity Reaction(s) Onset Inactive Treating Comments Name Date Date Clinician codeine Base Active Unknown Reaction 2019-03 [place] Ingredient Quan Medications Ordered Filled Start Stop Current Ordering Indication Dosage Frequency Signature Comments Components Medication Medication Date Date Medication? Clinician (SIG) Name Name FLUoxetine FLUoxetine 2018-11 Yes Jander Unknown Unknown 20 mg 20 mg - MD,Cinthia capsule capsule atorvastati atorvastati 2018-11 Yes Jander Unknown Unknown n 20 mg n 20 mg 12-02 MD,[place]inthia tablet tablet ProAir HFA ProAir HFA 2018-11 Yes Jander Unknown Unknown 90 90 - ,[place]inthia mcg/actuati mcg/actuati on aerosol on aerosol inhaler inhaler Serevent Serevent 2018-11 Yes Jander Unknown Unknown Diskus 50 Diskus 50 - ,[place] mcg/dose mcg/dose powder for powder for inhalation inhalation Incruse Incruse 2018-11 Yes Jander Unknown Unknown Ellipta Ellipta - ,[place]inthia 62.5 62.5 mcg/actuati mcg/actuati on powder on powder for for inhalation inhalation Detrol LA 4 Detrol LA 4 2018-11 Yes Jander Unknown Unknown mg mg -07 MD,Cinthia capsule,ext capsule,ext ended ended release release Myrbetriq Myrbetriq 2018-11 Yes Jander Unknown Unknown 50 mg 50 mg -07 MD,[place]ia tablet,exte tablet,exte nded nded release release primidone primidone 2018-11 Yes Jander Unknown Unknown 250 mg 250 mg - MD,[place]inthia tablet tablet Aspirin Low Aspirin Low 2018-11 Yes Jander Unknown Unknown Dose 81 mg Dose 81 mg -07 MD,[place]inthia tablet,manny tablet,manny yed release yed release amLODIPine amLODIPine 2018-11 Yes Jander Unknown Unknown 10 mg 10 mg 1-07 MD,[place]inthia tablet tablet losartan losartan 2018-11 Yes Jander Unknown Unknown 100 mg 100 mg 12-02 Cinthia ELLISON tablet tablet cyanocobala cyanocobala 2018-11 Yes Jander [...] Unknown Unknown mg capsule mg capsule 12-02 Cintiha ELLISON Miralax 17 Miralax 17 2018-11 Yes [...] ayed release release fluticasone fluticasone 2018-11 Yes Jander Unknown Unknown propionate propionate 12-16 Cinthia ELLISON 50 50 mcg/actuati mcg/actuati on nasal on nasal spray,suspe spray,suspe nsion nsion Vital Signs Vital Name Observation Time Observation Value Comments SYSTOLIC mm[Hg] 2019-10-16 18:08:58 144 mm[Hg] mm[Hg] Method: Sit DIASTOLIC mm[Hg] 2019-10-16 18:08:58 82 mm[Hg] mm[Hg] Method: Sit PULSE 2019-10-16 18:08:58 83 /min /min RESP RATE 2019-10-16 18:08:58 22 /min /min TEMP 2019-10-16 18:08:58 97.5 [degF] Procedures This patient has no known procedures. Results This patient has no known results.
--- OUTSIDE RECORDS SUMMARY | 2019-10-28 16:05 | XMS REPORT ---
:1945 Author Organization [facility] Care Team Providers Name Role Phone Unavailable Unavailable Unavailable Problems Condition Condition Condition Status Onset Resolution Last Treating Comments Name Details Category Date Date Treatment Clinician Date Pain frequent Pain Mgmt Resolve 2018-112019-10-13 [place] pain d 12-02 10:23:00 [place] 10:30: [id number] 00 Respiratory dyspnea Respirator Active 2018-11 Fre[place] present y 12-02 [place] 10:30: [id number] 00 Respiratory oxygen Respirator Active 2018-11 [place] treatments y 12-02 [place] in home 10:30: [id number] 00 Respiratory knowledge/s Respirator Active 2018-11 Fre[place] kill y 12-02 [place] deficit: pt 10:30: [id number] 00 Respiratory knowledge/s Respirator Active 2018-11 Fre[place] kill y 12-02 [place] deficit: cg 10:30: [id number] 00 Respiratory lung sounds Respirator Active 2018-11 [place] deficit y 12-02 [place] 10:30: [id number] 00 Respiratory smoker Respirator Active 2018-11 Freida y 12-02 [place] 10:30: [id number] 00 Respiratory nebulizer Respirator Active 2018-11 [place] treatment y 12-02 [place] in home 10:30: [id number] 00 Endo/Benjamin anti-coagul Endo/Benjamin Resolve 2018-112019-10-06 Fre[place] ation d 12-02 13:19:00 [place] therapy 10:30: [id number] 00 Sensory impaired Sensory Active 2018-11 Fre[place] hearing 12-02 [place] 10:30: [id number] 00 Integument skin Integument Resolve 2018-112019-10-08 [place] integrity d 12-02 14:40:00 [place] risk 10:30: [id number] 00 Nutrition nutritional Nutrition Resolve 2018-112019-10-13 [place] restriction d 12-02 10:23:00 [place] s 10:30: [id number] 00 Elimination urinary Eliminatio Resolve 2018-112019-10-06 [place] incontinenc n d 12-02 13:19:00 [place] e 10:30: [id number] 00 Neuro confusion Neuro/Emot Active 2018-11 [place] present ion 12-02 [place] 10:30: [id number] 00 Neuro anxiety Neuro/Emot Active 2018-11 [place] present ion 12-02 [place] 10:30: [id number] 00 Neuro depressive Neuro/Emot Active 2018-11 [place] feelings ion 12-02 [place] present 10:30: [id number] 00 Neuro impaired Neuro/Emot Active 2018-11 [place] decision-ma ion 12-02 [place] claritza 10:30: [id number] 00 Activity ADL Activity Active 2018-11 [place] assistance 12-02 [place] required 10:30: [id number] 00 Activity self-care Activity Resolve 2018-112019-10-06 [place] deficit d 12-02 13:19:00 [place] 10:30: [id number] 00 Safety cannot be Safety Active 2018-11 [place] left alone 12-02 [place] 10:30: [id number] 00 Safety knowledge/s Safety Resolve 2018-112019-10-16 [place] kill d 12-02 14:28:00 [place] deficit: pt 10:30: [id number] 00 Safety fall risk Safety Resolve 2018-112019-10-10 [place] factor d 12-02 14:55:00 [place] present 10:30: [id number] 00 Safety risk for Safety Resolve 2018-112019-10-10 Fre[place] hospitaliza d 12-02 14:55:00 [place] tion 10:30: [id number] 00 Medication oral med Meds Resolve 2018-112019-10-13 [place] assistance d 12-02 10:23:00 [place] required 10:30: [id number] 00 Musculoskel transfer Musculoske Resolve 2018-112019-10-13 [place] etal assistance letal d 12-02 10:23:00 [place] required 10:30: [id number] 00 Musculoskel requires Musculoske Resolve 2018-112019-10-13 Fre[place] etal human letal d 12-02 10:23:00 [place] assist to 10:30: [id number] leave home 00 Cardio edema Cardiovasc Active 2018-11 Radha ular -15 [place] 14:55: RN 00 Safety risk for Safety Resolve 2018-112019-10-16 Radha hospitaliza d 18 14:28:00 [place] tion 10:23: RN 00 Medication oral med Meds Active 2018-11 Radha assistance 12-16 [place] required 14:28: RN 00 Safety knowledge/s Safety Active 2018-11 Evelyn kill 12-17 [place] deficit: pt 10:00: [id number] 00 Safety risk for Safety Active 2018-11 Evelyn hospitaliza 12-17 [place] tion 10:00: [id number] 00 Social knowledge/s RUSLAN: Active 2018-11 Evelyn Services kill Social 12-17 [place] deficit - Services 10:00: [id number] pt 00 Safety can be left Safety Active 2018-11 Shanelle alone for 12-22 [place] only short 12:04: [id number] periods 00 Medication potential Meds Active 2018-11 Yesy story 12-27 Carrier RN significant 11:50: medication 00 issue Allergies, Adverse Reactions, Alerts Allergy Allergy Type Status Severity Reaction(s) Onset Inactive Treating Comments Name Date Date Clinician codeine Base Active Unknown Reaction 2019-03 [place] Ingredient Quan Medications Ordered Filled Start Stop [...] Unknown Unknown 100 mg 100 mg 12-02 ,[place]inth[place] tablet tablet cyanocobala cyanocobala 2018-11 Yes Jander Unknown Unknown min min 12-02 Cinthia ELLISON (vitamin (vitamin B-12) 2,500 B-12) 2,500 mcg tablet mcg tablet Compound W Compound W No Jander Unknown Unknown 17 % 17 % Cinthia ELLISON topical gel topical gel mirtazapine mirtazapine 2018-11 Yes Jander Unknown Unknown 15 mg 15 mg 12-02 ,[place]inthia tablet tablet Chest Chest 2018-11 Yes Jander [...] Unknown Unknown 12-02 Cinthia ELLISON predniSONE predniSONE 2018-11- Jander Unknown Unknown 20 mg 20 mg 12-10 MD,[place]inthia tablet tablet omeprazole omeprazole 2018-11 Yes Jander Unknown Unknown 20 mg 20 mg 12-10 MD,[place]inthia capsule,del capsule,del ayed ayed release release fluticasone fluticasone 2018-11 Yes Jander Unknown Unknown propionate propionate 12-16 MD,Cinthia 50 50 mcg/actuati mcg/actuati on nasal on nasal spray,suspe spray,suspe nsion nsion predniSONE predniSONE 2018-11- Yes Jander Unknown Unknown 20 mg 20 mg 12-10 MD,Cinthia tablet tablet predniSONE predniSONE 2018-11 Yes Jander Unknown Unknown 10 mg 10 mg 12-24 MD,Cinthia tablet tablet Vital Signs Vital Name Observation Time Observation [...]
--- OUTSIDE RECORDS SUMMARY | 2019-10-28 16:05 | XMS REPORT ---
:1945 Author Organization [facility] Care Team Providers Name Role Phone Unavailable Unavailable Unavailable Problems Condition Condition Condition Status Onset Resolution Last Treating Comments Name Details Category Date Date Treatment Clinician Date Pain frequent Pain Mgmt Resolve 2018-112019-10-13 [place] pain d 12-02 10:23:00 [place] 10:30: [id number] 00 Respiratory dyspnea Respirator Active 2018-11 [place] present y 12-02 [place] 10:30: [id number] 00 Respiratory oxygen Respirator Active 2018-11 [place] treatments y 12-02 [place] in home 10:30: [id number] 00 Respiratory knowledge/s Respirator Active 2018-11 [place] kill y 12-02 [place] deficit: pt 10:30: [id number] 00 Respiratory knowledge/s Respirator Active 2018-11 [place] kill y 12-02 [place] deficit: cg 10:30: [id number] 00 Respiratory lung sounds Respirator Active 2018-11 [place] deficit y 12-02 [place] 10:30: [id number] 00 Respiratory smoker Respirator Active 2018-11 Freida y 12-02 [place] 10:30: [id number] 00 Respiratory nebulizer Respirator Active 2018-11 [place] treatment y 12-02 [place] in home 10:30: [id number] 00 Endo/Benjamin anti-coagul Endo/Benjamin Resolve 2018-112019-10-06 [place] ation d 12-02 13:19:00 [place] therapy 10:30: [id number] 00 Sensory impaired Sensory Active 2018-11 [place] hearing 12-02 [place] 10:30: [id number] 00 Integument skin Integument Resolve 2018-112019-10-08 [place] integrity d 12-02 14:40:00 [place] risk 10:30: [id number] 00 Nutrition nutritional Nutrition Resolve 2018-112019-10-13 [place] restriction d 12-02 10:23:00 [place] s 10:30: [id number] 00 Elimination urinary Eliminatio Resolve 2018-112019-10-06 [place] incontinenc n d 12-02 13:19:00 [place] e 10:30: [id number] 00 Neuro confusion Neuro/Emot Active 2018-11 [place] present ion 12-02 [place] 10:30: [id number] 00 Neuro anxiety Neuro/Emot Active 2018-11 Fre[place] present ion 12-02 [place] 10:30: [id number] 00 Neuro depressive Neuro/Emot Active 2018-11 [place] feelings ion 12-02 [place] present 10:30: [id number] 00 Neuro impaired Neuro/Emot Active 2018-11 [place] decision-ma ion 12-02 [place] claritza 10:30: [id number] 00 Activity ADL Activity Active 2018-11 [place] assistance 12-02 [place] required 10:30: [id number] 00 Activity self-care Activity Resolve 2018-112019-10-06 [place] deficit d 12-02 13:19:00 [place] 10:30: [id number] 00 Safety cannot be Safety Active 2018-11 [place] left alone 12-02 [place] 10:30: [id number] 00 Safety knowledge/s Safety Resolve 2018-112019-10-16 [place] kill d 12-02 14:28:00 [place] deficit: pt 10:30: [id number] 00 Safety fall risk Safety Resolve 2018-112019-10-10 [place] factor d 12-02 14:55:00 [place] present 10:30: [id number] 00 Safety risk for Safety Resolve 2018-112019-10-10 [place] hospitaliza d 12-02 14:55:00 [place] tion 10:30: [id number] 00 Medication oral med Meds Resolve 2018-112019-10-13 [place] assistance d 12-02 10:23:00 [place] required 10:30: [id number] 00 Musculoskel transfer Musculoske Resolve 2018-112019-10-13 [place] etal assistance letal d 12-02 10:23:00 [place] required 10:30: [id number] 00 Musculoskel requires Musculoske Resolve 2018-112019-10-13 [place] etal human letal d 12-02 10:23:00 [place] assist to 10:30: [id number] leave home 00 Cardio edema Cardiovasc Active 2018-11 Radha ular 15 [place] 14:55: RN 00 Safety risk for Safety Resolve 2018-112019-10-16 Radha hospitaliza d 18 14:28:00 [place] tion 10:23: RN 00 Medication oral med Meds Active 2018-11 Radha assistance 12-16 [place] required 14:28: RN 00 Safety knowledge/s Safety Active 2018-11 Evelyn kill 12-17 [place] deficit: pt 10:00: [id number] 00 Safety risk for Safety Active 2018-11 Evelyn hospitaliza 12-17 [place] tion 10:00: [id number] 00 Social knowledge/s RUSLAN: Active 2018-11 Evelyn Services kill Social 12-17 [place] deficit - Services 10:00: [id number] pt 00 Allergies, Adverse Reactions, Alerts Allergy Allergy Type Status Severity Reaction(s) Onset Inactive Treating Comments Name Date Date Clinician codeine Base Active Unknown Reaction 2019-03 [place] Ingredient Quan Medications Ordered Filled Start Stop Current Ordering Indication Dosage Frequency Signature Comments Components Medication Medication Date Date Medication? Clinician (SIG) Name Name FLUoxetine FLUoxetine 2018-11 Yes Jander Unknown Unknown 20 mg 20 mg - ,[place] capsule capsule atorvastati atorvastati 2018-11 Yes Jander Unknown Unknown n 20 mg n 20 mg - ,[place]ia tablet tablet ProAir HFA ProAir HFA 2018-11 Yes Jander Unknown Unknown 90 90 12-02 Cinthia ELLISON mcg/actuati mcg/actuati on aerosol on aerosol inhaler inhaler Serevent Serevent 2018-11 Yes Jander Unknown Unknown Diskus 50 Diskus 50 - Cinthia ELLISON mcg/dose mcg/dose powder for powder [...] Dose 81 mg Dose 81 mg 12-02 Cinthia ELLISON tablet,manny tablet,manny yed release yed release amLODIPine amLODIPine 2018-11 Yes Jander Unknown Unknown 10 mg 10 mg 12-02 Cinthia ELLISON tablet tablet losartan losartan 2018-11 Yes Jander [...] Vital Name Observation Time Observation Value Comments RESP RATE 2019-10-16 18:08:58 22 /min /min Procedures This patient has no known procedures. Results This patient has no known results.
--- OUTSIDE RECORDS SUMMARY | 2019-10-28 16:05 | XMS REPORT ---
:1945 Author Organization [facility] Care Team Providers Name Role Phone Unavailable Unavailable Unavailable Problems Condition Condition Condition Status Onset Resolution Last Treating Comments Name Details Category Date Date Treatment Clinician Date Pain frequent Pain Mgmt Resolve 2018-112019-10-13 [place] pain d 12-02 10:23:00 [place] 10:30: [id number] Respiratory dyspnea Respirator Active 2018-11 Freida present y 12-02 [place] 10:30: [id number] 00 Respiratory oxygen Respirator Active 2018-11 Freida treatments y 12-02 [place] in home 10:30: [id number] 00 Respiratory knowledge/s Respirator Active 2018-11 Freida kill y 12-02 [place] deficit: pt 10:30: [id number] 00 Respiratory knowledge/s Respirator Active 2018-11 Fre[place] kill y 12-02 [place] deficit: cg 10:30: [id number] 00 Respiratory lung sounds Respirator Active 2018-11 [place] deficit y 12-02 [place] 10:30: [id number] 00 Respiratory smoker Respirator Active 2018-11 Freida y 12-02 [place] 10:30: [id number] 00 Respiratory nebulizer Respirator Active 2018-11 [place] treatment y 12-02 [place] in home 10:30: [id number] 00 Endo/Benjamin anti-coagul Endo/Benjamin Resolve 2018-112019-10-06 Freida ation d 12-02 13:19:00 [place] therapy 10:30: [id number] 00 Sensory impaired Sensory Active 2018-11 Freida hearing 12-02 [place] 10:30: [id number] 00 Integument skin Integument Resolve 2018-112019-10-08 Freida integrity d 12-02 14:40:00 [place] risk 10:30: [id number] 00 Nutrition nutritional Nutrition Resolve 2018-112019-10-13 [place] restriction d 12-02 10:23:00 [place] s 10:30: [id number] 00 Elimination urinary Eliminatio Resolve 2018-112019-10-06 Freida incontinenc n d 12-02 13:19:00 [place] e 10:30: [id number] 00 Neuro confusion Neuro/Emot Active 2018-11 [place] present ion 12-02 [place] 10:30: [id number] 00 Neuro anxiety Neuro/Emot Active 2018-11 Fre[place] present ion 12-02 [place] 10:30: [id number] 00 Neuro depressive Neuro/Emot Active 2018-11 Freida feelings ion 12-02 [place] present 10:30: [id number] 00 Neuro impaired Neuro/Emot Active 2018-11 Freida decision-ma ion 12-02 [place] claritza 10:30: [id number] 00 Activity ADL Activity Active 2018-11 Freida assistance 12-02 [place] required 10:30: [id number] 00 Activity self-care Activity Resolve 2018-112019-10-06 [place] deficit d 12-02 13:19:00 [place] 10:30: [id number] 00 Safety cannot be Safety Active 2018-11 Freida left alone 12-02 [place] 10:30: [id number] 00 Safety knowledge/s Safety Resolve 2018-112019-10-16 [place] kill d 12-02 14:28:00 [place] deficit: pt 10:30: [id number] 00 Safety fall risk Safety Resolve 2018-112019-10-10 [place] factor d 12-02 14:55:00 [place] present 10:30: [id number] 00 Safety risk for Safety Resolve 2018-112019-10-10 Freida hospitaliza d 12-02 14:55:00 [place] tion 10:30: [id number] 00 Medication oral med Meds Resolve 2018-112019-10-13 [place] assistance d 12-02 10:23:00 [place] required 10:30: [id number] 00 Musculoskel transfer Musculoske Resolve 2018-112019-10-13 Freida etal assistance letal d 12-02 10:23:00 [place] required 10:30: [id number] 00 Musculoskel requires Musculoske Resolve 2018-112019-10-13 Fre[place] etal human letal d 12-02 10:23:00 [place] assist to 10:30: [id number] leave home 00 Cardio edema Cardiovasc Active 2018-11 Radha ular 15 [place] 14:55: RN 00 Safety risk for Safety Resolve 2018-112019-10-16 Radha hospitaliza d 18 14:28:00 [place] tion 10:23: RN 00 Medication oral med Meds Active 2018-11 Radha assistance 12-16 [place] required 14:28: RN 00 Safety knowledge/s Safety Active 2018-11 Evelyn kill 12-17 [place] deficit: pt 10:00: [id number] 00 Safety risk for Safety Active 2018-11 Evelyn hospitaliza 12-17 [place] tion 10:00: [id number] 00 Social knowledge/s RUSLAN: Active 2018-11 Evelyn Services kill Social 12-17 [place] deficit - Services 10:00: [id number] pt 00 Allergies, Adverse Reactions, Alerts Allergy Allergy Type Status Severity Reaction(s) Onset Inactive Treating Comments Name Date Date Clinician codeine Base Active Unknown Reaction 2019-03 [place] Ingredient Quan Medications Ordered Filled Start Stop Current Ordering Indication Dosage Frequency Signature Comments Components Medication Medication Date Date Medication? Clinician (SIG) Name Name FLUoxetine FLUoxetine 2018-11 Yes Jander Unknown Unknown 20 mg 20 mg - ,[place] capsule capsule atorvastati atorvastati 2018-11 Yes Jander [...]
--- OUTSIDE RECORDS SUMMARY | 2019-10-28 16:05 | XMS REPORT ---
:1945 Author Organization [facility] Care Team Providers Name Role Phone Unavailable Unavailable Unavailable Problems Condition Condition Condition Status Onset Resolution Last Treating Comments Name Details Category Date Date Treatment Clinician Date Pain frequent Pain Mgmt Resolve 2018-112019-10-13 Fre[place] pain d 12-02 10:23:00 [place] 10:30: [id number] 00 Respiratory dyspnea Respirator Active 2018-11 Fre[place] present y 12-02 [place] 10:30: [id number] 00 Respiratory oxygen Respirator Active 2018-11 [place] treatments y 12-02 [place] in home 10:30: [id number] 00 Respiratory knowledge/s Respirator Active 2018-11 Fre[place] kill y 12-02 [place] deficit: pt 10:30: [id number] 00 Respiratory knowledge/s Respirator Active 2018-11 [place] kill y 12-02 [place] deficit: cg 10:30: [id number] 00 Respiratory lung sounds Respirator Active 2018-11 [place] deficit y 12-02 [place] 10:30: [id number] 00 Respiratory smoker Respirator Active 2018-11 Freida y 12-02 [place] 10:30: [id number] 00 Respiratory nebulizer Respirator Active 2018-11 Freida treatment y 12-02 [place] in home 10:30: [id number] 00 Endo/Benjamin anti-coagul Endo/Benjamin Resolve 2018-112019-10-06 [place] ation d 12-02 13:19:00 [place] therapy 10:30: [id number] 00 Sensory impaired Sensory Active 2018-11 Freida hearing 12-02 [place] 10:30: [id number] 00 Integument skin Integument Resolve 2018-112019-10-08 Freida integrity d 12-02 14:40:00 [place] risk 10:30: [id number] 00 Nutrition nutritional Nutrition Resolve 2018-112019-10-13 Freiad restriction d 12-02 10:23:00 [place] s 10:30: [id number] 00 Elimination urinary Eliminatio Resolve 2018-112019-10-06 Freida incontinenc n d 12-02 13:19:00 [place] e 10:30: [id number] 00 Neuro confusion Neuro/Emot Active 2018-11 Freida present ion 12-02 [place] 10:30: [id number] 00 Neuro anxiety Neuro/Emot Active 2018-11 Freida present ion 12-02 [place] 10:30: [id number] 00 Neuro depressive Neuro/Emot Active 2018-11 Freida feelings ion 12-02 [place] present 10:30: [id number] 00 Neuro impaired Neuro/Emot Active 2018-11 Freida decision-ma ion 12-02 [place] claritza 10:30: [id number] 00 Activity ADL Activity Active 2018-11 Freida assistance 12-02 [place] required 10:30: [id number] 00 Activity self-care Activity Resolve 2018-112019-10-06 Fre[place] deficit d 12-02 13:19:00 [place] 10:30: [id number] 00 Safety cannot be Safety Active 2018-11 Freida left alone 12-02 [place] 10:30: [id number] 00 Safety knowledge/s Safety Resolve 2018-112019-10-16 Fre[place] kill d 12-02 14:28:00 [place] deficit: pt 10:30: [id number] 00 Safety fall risk Safety Resolve 2018-112019-10-10 Freida factor d 12-02 14:55:00 [place] present 10:30: [id number] 00 Safety risk for Safety Resolve 2018-112019-10-10 Freida hospitaliza d 12-02 14:55:00 [place] tion 10:30: [id number] 00 Medication oral med Meds Resolve 2018-112019-10-13 Freida assistance d 12-02 10:23:00 [place] required 10:30: [id number] 00 Musculoskel transfer Musculoske Resolve 2018-112019-10-13 Freida etal assistance letal d 12-02 10:23:00 [place] required 10:30: [id number] 00 Musculoskel requires Musculoske Resolve 2018-112019-10-13 Freida etal human letal d 12-02 10:23:00 [place] assist to 10:30: [id number] leave home 00 Cardio edema Cardiovasc Active 2018-11 Radha ular -15 [place] 14:55: RN 00 Safety risk for Safety Resolve 2018-112019-10-16 Radha hospitaliza d 18 14:28:00 [place] tion 10:23: RN 00 Medication oral med Meds Active 2018-11 Radha assistance 12-16 [place] required 14:28: RN 00 Safety knowledge/s Safety Active 2018-11 Evelyn kill 12-17 [place] deficit: pt 10:00: [id number] 00 Safety risk for Safety Active 2018-11 Evelyn hospitaliza 12-17 [place] tion 10:00: [id number] 00 Social knowledge/s RUSLAN: Active 2018-11 Evelyn Services kill Social 12-17 [place] deficit - Services 10:00: [id number] pt 00 Safety can be left Safety Active 2018-11 Shanelle alone for 12-22 [place] only short 12:04: [id number] periods 00 Allergies, Adverse Reactions, Alerts Allergy Allergy Type Status Severity Reaction(s) Onset Inactive Treating Comments Name Date Date Clinician codeine Base Active Unknown Reaction 2019-03 [place] Ingredient Quan Medications Ordered Filled Start Stop [...]
--- OUTSIDE RECORDS SUMMARY | 2019-10-28 16:05 | XMS REPORT ---
:1945 Author Organization [facility] Care Team Providers Name Role Phone Unavailable Unavailable Unavailable Problems Condition Condition Condition Status Onset Resolution Last Treating Comments Name Details Category Date Date Treatment Clinician Date Pain frequent Pain Mgmt Resolve 2018-112019-10-13 Freida pain d 12-02 10:23:00 [place] 10:30: [id number] 00 Respiratory dyspnea Respirator Active 2018-11 Freida present y 12-02 [place] 10:30: [id number] 00 Respiratory oxygen Respirator Active 2018-11 Fre[place] treatments y 12-02 [place] in home 10:30: [id number] 00 Respiratory knowledge/s Respirator Active 2018-11 Freida kill y 12-02 [place] deficit: pt 10:30: [id number] 00 Respiratory knowledge/s Respirator Active 2018-11 Freida kill y 12-02 [place] deficit: cg 10:30: [id number] 00 Respiratory lung sounds Respirator Active 2018-11 Freida deficit y 12-02 [place] 10:30: [id number] 00 Respiratory smoker Respirator Active 2018-11 Freida y 12-02 [place] 10:30: [id number] 00 Respiratory nebulizer Respirator Active 2018-11 Freida treatment y 12-02 [place] in home 10:30: [id number] 00 Endo/Benjamin anti-coagul Endo/Benjamin Resolve 2018-112019-10-06 Freida ation d 12-02 13:19:00 [place] therapy 10:30: [id number] 00 Sensory impaired Sensory Active 2018-11 Freida hearing 12-02 [place] 10:30: [id number] 00 Integument skin Integument Resolve 2018-112019-10-08 Freida integrity d 12-02 14:40:00 [facility] risk 10:30: [id number] 00 Nutrition nutritional Nutrition Resolve 2018-112019-10-13 Freida restriction d 12-02 10:23:00 [facility] s 10:30: [id number] 00 Elimination urinary Eliminatio Resolve 2018-112019-10-06 Fre[place] incontinenc n d 12-02 13:19:00 [facility] e 10:30: [id number] 00 Neuro confusion Neuro/Emot Active 2018-11 Freida present ion 12-02 [facility] 10:30: [id number] 00 Neuro anxiety Neuro/Emot Active 2018-11 Freida present ion 12-02 [facility] 10:30: [id number] 00 Neuro depressive Neuro/Emot Active 2018-11 Freida feelings ion 12-02 [facility] present 10:30: [id number] 00 Neuro impaired Neuro/Emot Active 2018-11 Freida decision-ma ion 12-02 [facility] claritza 10:30: [id number] 00 Activity ADL Activity Active 2018-11 Freida assistance 12-02 [facility] required 10:30: [id number] 00 Activity self-care Activity Resolve 2018-112019-10-06 Fre[place] deficit d 12-02 13:19:00 [facility] 10:30: [id number] 00 Safety cannot be Safety Active 2018-11 Freida left alone 12-02 [facility] 10:30: [id number] 00 Safety knowledge/s Safety Active 2018-11 Freida kill 12-02 [facility] deficit: pt 10:30: [id number] 00 Safety fall risk Safety Resolve 2018-112019-10-10 Freida factor d 12-02 14:55:00 [place] present 10:30: [id number] 00 Safety risk for Safety Resolve 2018-112019-10-10 Freida hospitaliza d 12-02 14:55:00 [facility] tion 10:30: [id number] 00 Medication oral med Meds Resolve 2018-112019-10-13 [place] assistance d 12-02 10:23:00 [facility] required 10:30: [id number] 00 Musculoskel transfer Musculoske Resolve 2018-112019-10-13 Freida etal assistance letal d 12-02 10:23:00 [place] required 10:30: [id number] 00 Musculoskel requires Musculoske Resolve 2018-112019-10-13 Freida etal human letal d 12-02 10:23:00 [facility] assist to 10:30: [id number] leave home 00 Cardio edema Cardiovasc Active 2018-11 Radha ular 12-10 [place] 14:55: RN 00 Safety risk for Safety Active 2018-11 Radha hospitaliza 12-13 [place] tion 10:23: RN 00 Medication oral med Meds Active 2018-11 Radha assistance 12-16 [place] required 14:28: RN 00 Allergies, Adverse Reactions, Alerts Allergy Allergy Type Status Severity Reaction(s) Onset Inactive Treating Comments Name Date Date Clinician codeine Base Active Unknown Reaction 2019-03 [place] Ingredient Quan Medications Ordered Filled Start Stop Current Ordering Indication Dosage Frequency Signature Comments Components Medication Medication Date Date Medication? Clinician (SIG) Name Name FLUoxetine FLUoxetine 2018-11 Yes Jander Unknown Unknown 20 mg 20 mg - MD,[place] capsule capsule atorvastati atorvastati 2018-11 Yes Jander Unknown Unknown n 20 mg n 20 mg - MD,[place] tablet tablet ProAir HFA ProAir HFA 2018-11 Yes Jander Unknown Unknown 90 90 - ,[place] mcg/actuati mcg/actuati on aerosol on aerosol inhaler inhaler Serevent Serevent 2018-11 Yes Jander Unknown Unknown Diskus 50 Diskus 50 - MD,[place] mcg/dose mcg/dose powder for powder for inhalation [...] Jander Unknown Unknown 250 mg 250 mg -07 MD,[place] tablet tablet Aspirin Low Aspirin Low 2018-11 Yes Jander Unknown Unknown Dose 81 mg Dose 81 mg -07 MD,[place]ia tablet,manny tablet,manny yed release yed release amLODIPine amLODIPine 2018-11 Yes Jander Unknown Unknown 10 mg 10 mg 1-07 MD,[place] tablet tablet losartan losartan 2018-11 Yes Jander Unknown Unknown 100 mg 100 mg -07 MD,[place] tablet tablet cyanocobala cyanocobala 2018-11 Yes Jander [...] ELLISON capsule,del capsule,del ayed ayed release release Vital Signs Vital Name Observation Time Observation [...]
--- OUTSIDE RECORDS SUMMARY | 2019-10-28 16:05 | XMS REPORT ---
:1945 Author Organization [facility] Care Team Providers Name Role Phone Unavailable Unavailable Unavailable Problems Condition Condition Condition Status Onset Resolution Last Treating Comments Name Details Category Date Date Treatment Clinician Date Pain frequent Pain Mgmt Resolve 2018-112019-10-13 [place] pain d 12-02 10:23:00 [place] 10:30: [id number] 00 Respiratory dyspnea Respirator Active 2018-11 Freida present y 12-02 [place] 10:30: [id number] 00 Respiratory oxygen Respirator Active 2018-11 [place] treatments y 12-02 [place] in home 10:30: [id number] 00 Respiratory knowledge/s Respirator Active 2018-11 Fre[place] kill y 12-02 [place] deficit: pt 10:30: [id number] 00 Respiratory knowledge/s Respirator Active 2018-11 Fre[place] kill y 12-02 [place] deficit: cg 10:30: [id number] 00 Respiratory lung sounds Respirator Active 2018-11 [place] deficit y 12-02 [place] 10:30: [id number] 00 Respiratory smoker Respirator Active 2018-11 Freida y 12-02 [place] 10:30: [id number] 00 Respiratory nebulizer Respirator Active 2018-11 [place] treatment y 12-02 [place] in home 10:30: [id number] 00 Endo/Benjamin anti-coagul Endo/Benjamin Resolve 2018-112019-10-06 Fre[place] ation d 12-02 13:19:00 [place] therapy 10:30: [id number] 00 Sensory impaired Sensory Active 2018-11 Freida hearing 12-02 [place] 10:30: [id number] 00 Integument skin Integument Resolve 2018-112019-10-08 Freida integrity d 12-02 14:40:00 [place] risk 10:30: [id number] 00 Nutrition nutritional Nutrition Resolve 2018-112019-10-13 [place] restriction d 12-02 10:23:00 [place] s 10:30: [id number] 00 Elimination urinary Eliminatio Resolve 2018-112019-10-06 [place] incontinenc n d 12-02 13:19:00 [place] e 10:30: [id number] 00 Neuro confusion Neuro/Emot Active 2018-11 Freida present ion 12-02 [place] 10:30: [id number] 00 Neuro anxiety Neuro/Emot Active 2018-11 Freida present ion 12-02 [place] 10:30: [id number] 00 Neuro depressive Neuro/Emot Active 2018-11 Freiad feelings ion 12-02 [place] present 10:30: [id number] 00 Neuro impaired Neuro/Emot Active 2018-11 Freida decision-ma ion 12-02 [place] claritza 10:30: [id number] 00 Activity ADL Activity Active 2018-11 Freida assistance 12-02 [place] required 10:30: [id number] 00 Activity self-care Activity Resolve 2018-112019-10-06 [place] deficit d 12-02 13:19:00 [place] 10:30: [id number] 00 Safety cannot be Safety Active 2018-11 Freida left alone 12-02 [place] 10:30: [id number] 00 Safety knowledge/s Safety Active 2018-11 Freida kill 12-02 [place] deficit: pt 10:30: [id number] 00 Safety fall risk Safety Resolve 2018-112019-10-10 Freida factor d 12-02 14:55:00 [place] present 10:30: [id number] 00 Safety risk for Safety Resolve 2018-112019-10-10 Freida hospitaliza d 12-02 14:55:00 [place] tion 10:30: [id number] 00 Medication oral med Meds Resolve 2018-112019-10-13 Freida assistance d 12-02 10:23:00 [place] required 10:30: [id number] 00 Musculoskel transfer Musculoske Resolve 2018-112019-10-13 Freida etal assistance letal d 12-02 10:23:00 [place] required 10:30: [id number] 00 Musculoskel requires Musculoske Resolve 2018-112019-10-13 Freida etal human letal d 12-02 10:23:00 [place] assist to 10:30: [id number] leave home 00 Cardio edema Cardiovasc Active [...] Clinician codeine Base Active Unknown Reaction 2019-03 [place] Ingredient Quna Medications Ordered Filled Start Stop Current Ordering [...]
--- OUTSIDE RECORDS SUMMARY | 2019-10-28 16:06 | XMS REPORT ---
:1945 Author Organization [facility] Care Team Providers Name Role Phone Unavailable Unavailable Unavailable Problems Condition Condition Condition Status Onset Resolution Last Treating Comments Name Details Category Date Date Treatment Clinician Date Pain frequent Pain Mgmt Active 2018-11 [place] pain 12-02 [place] 10:30: [id number] 00 Respiratory dyspnea Respirator Active 2018-11 Freida present y 12-02 [place] 10:30: [id number] 00 Respiratory oxygen Respirator Active 2018-11 [place] treatments y 12-02 [place] in home 10:30: [id number] 00 Respiratory knowledge/s Respirator Active 2018-11 Freida kill y 12-02 [place] deficit: pt 10:30: [id number] 00 Respiratory knowledge/s Respirator Active 2018-11 Freida kill y 12-02 [place] deficit: cg 10:30: [id number] 00 Respiratory lung sounds Respirator Active 2018-11 Fre[place] deficit y 12-02 [place] 10:30: [id number] 00 Respiratory smoker Respirator Active 2018-11 Freida y 12-02 [place] 10:30: [id number] 00 Respiratory nebulizer Respirator Active 2018-11 [place]ida treatment y 12-02 [place] in home 10:30: [id number] 00 Endo/Benjamin anti-coagul Endo/Benjamin Resolve 2018-112019-10-06 Fre[place] ation d 12-02 13:19:00 [place] therapy 10:30: [id number] 00 Sensory impaired Sensory Active 2018-11 Freida hearing 12-02 [place] 10:30: [id number] 00 Integument skin Integument Resolve 2018-112019-10-08 Freida integrity d 12-02 14:40:00 [place] risk 10:30: [id number] 00 Nutrition nutritional Nutrition Active 2018-11 Fre[place] restriction 12-02 [place] s 10:30: [id number] 00 Elimination urinary Eliminatio Resolve 2018-112019-10-06 [place] incontinenc n d 12-02 13:19:00 [place] e 10:30: [id number] 00 Neuro confusion Neuro/Emot Active 2018-11 Freida present ion 12-02 [place] 10:30: [id number] 00 Neuro anxiety Neuro/Emot Active 2018-11 Freida present ion 12-02 [place] 10:30: [id number] 00 Neuro depressive Neuro/Emot Active 2018-11 Freida feelings ion 12-02 [place] present 10:30: [id number] 00 Neuro impaired Neuro/Emot Active 2018-11 Freida decision-ma ion 12-02 [place] claritza 10:30: [id number] 00 Activity ADL Activity Active 2018-11 Freida assistance 12-02 [place] required 10:30: [id number] 00 Activity self-care Activity Resolve 2018-112019-10-06 [place] deficit d 12-02 13:19:00 [place] 10:30: [id number] 00 Safety cannot be Safety Active 2018-11 Freida left alone 12-02 [place] 10:30: [id number] 00 Safety knowledge/s Safety Active 2018-11 Freida kill 12-02 [place] deficit: pt 10:30: [id number] 00 Safety fall risk Safety Active 2018-11 Freida factor 12-02 [place] present 10:30: [id number] 00 Safety risk for Safety Active 2018-11 Fre[place] hospitaliza 12-02 [place] tion 10:30: [id number] 00 Medication oral med Meds Active 2018-11 Freida assistance 12-02 [place] required 10:30: [id number] 00 Musculoskel transfer Musculoske Active 2018-11 [place] etal assistance letal 12-02 [place] required 10:30: [id number] 00 Musculoskel requires Musculoske Active 2018-11 Freida etal human letal 12-02 [place] assist to 10:30: [id number] leave home 00 Allergies, Adverse Reactions, Alerts Allergy Allergy Type Status Severity Reaction(s) Onset Inactive Treating Comments Name Date Date Clinician layne Osborn Active Unknown Reaction 2019-03 [place] Ingredient Quan Medications Ordered Filled Start Stop Current Ordering Indication Dosage Frequency Signature Comments Components Medication Medication Date Date Medication? Clinician (SIG) Name Name FLUoxetine FLUoxetine 2018-11 Yes Jander Unknown Unknown 20 mg 20 mg 12-02 ,[place] capsule capsule atorvastati atorvastati 2018-11 Yes Jander Unknown Unknown n 20 mg n 20 mg 12-02 ,[place] tablet tablet ProAir HFA ProAir HFA 2018-11 Yes Jander Unknown Unknown 90 90 12-02 [place]ia ELLISON mcg/actuati mcg/actuati on aerosol on aerosol inhaler inhaler Serevent Serevent 2018-11 Yes Jander Unknown Unknown Diskus 50 Diskus 50 12-02 ,[place] mcg/dose mcg/dose powder for powder for inhalation inhalation Incruse Incruse 2018-11 Yes Jander Unknown Unknown Ellipta Ellipta 12-02 ,[place]ia 62.5 62.5 mcg/actuati mcg/actuati on powder [...] ELLISON Miralax 17 Miralax 17 2018-11 Yes [place] Unknown Unknown gram/dose gram/dose 12-02 [place] ELLISON oral powder oral powder ipratropium ipratropium 2018-11 Yes [place] Unknown Unknown -albuterol -albuterol 12-06 [place] ELLISON 0.5 mg-3 0.5 mg-3 mg(2.5 mg mg(2.5 mg base)/3 mL base)/3 mL nebulizatio nebulizatio n soln n soln Oxygen Oxygen 2018-11 Yes [place] Unknown Unknown 12-02 [place] ELLISON Vital Signs Vital Name Observation Time Observation Value Comments SYSTOLIC mm[Hg] 2019-10-10 18:08:52 132 mm[Hg] mm[Hg] Method: Sit DIASTOLIC mm[Hg] 2019-10-10 18:08:52 80 mm[Hg] mm[Hg] Method: Sit PULSE 2019-10-10 18:08:52 73 /min /min RESP RATE 2019-10-10 18:08:52 22 /min /min TEMP 2019-10-10 18:08:52 97.4 [degF] Procedures This patient has no known procedures. Results This patient has no known results.
--- OUTSIDE RECORDS SUMMARY | 2019-10-28 16:06 | XMS REPORT ---
:1945 Author Organization [facility] Care Team Providers Name Role Phone Unavailable Unavailable Unavailable Problems Condition Condition Condition Status Onset Resolution Last Treating Comments Name Details Category Date Date Treatment Clinician Date Pain frequent Pain Mgmt Resolve 2018-112019-10-13 [place] pain d 12-02 10:23:00 [place] 10:30: [id number] 00 Respiratory dyspnea Respirator Active 2018-11 [place] present y 12-02 [place] 10:30: [id number] 00 Respiratory oxygen Respirator Active 2018-11 [place] treatments y 12-02 [place] in home 10:30: [id number] 00 Respiratory knowledge/s Respirator Active 2018-11 [place] kill y 12-02 [place] deficit: pt 10:30: [id number] 00 Respiratory knowledge/s Respirator Active 2018-11 [place] kill y 12-02 [place] deficit: cg 10:30: [id number] 00 Respiratory lung sounds Respirator Active 2018-11 [place] deficit y 12-02 [place] 10:30: [id number] 00 Respiratory smoker Respirator Active 2018-11 [place] y 12-02 [place] 10:30: [id number] 00 Respiratory nebulizer Respirator Active 2018-11 [place] treatment y 12-02 [place] in home 10:30: [id number] 00 Endo/Benjamin anti-coagul Endo/Benjamin Resolve 2018-112019-10-06 [place] ation d 12-02 13:19:00 [place] therapy 10:30: [id number] 00 Sensory impaired Sensory Active 2018-11 [place] hearing 12-02 [place] 10:30: [id number] 00 Integument skin Integument Resolve 2018-112019-10-08 [place] integrity d 12-02 14:40:00 [place] risk 10:30: [id number] 00 Nutrition nutritional Nutrition Resolve 2018-112019-10-13 [place] restriction d 12-02 10:23:00 [place] s 10:30: [id number] 00 Elimination urinary Eliminatio Resolve 2018-112019-10-06 [place] incontinenc n d 12-02 13:19:00 [place] e 10:30: [id number] 00 Neuro confusion Neuro/Emot Active 2018-11 [place] present ion 12-02 [place] 10:30: [id number] 00 Neuro anxiety Neuro/Emot Active 2018-11 [place] present ion 12-02 [place] 10:30: [id number] 00 Neuro depressive Neuro/Emot Active 2018-11 [place] feelings ion 12-02 [place] present 10:30: [id number] 00 Neuro impaired Neuro/Emot Active 2018-11 [place] decision-ma ion 12-02 [place] claritza 10:30: [id number] 00 Activity ADL Activity Active 2018-11 [place] assistance 12-02 [place] required 10:30: [id number] 00 Activity self-care Activity Resolve 2018-112019-10-06 [place] deficit d 12-02 13:19:00 [place] 10:30: [id number] 00 Safety cannot be Safety Active 2018-11 [place] left alone 12-02 [place] 10:30: [id number] 00 Safety knowledge/s Safety Active 2018-11 [place] kill 12-02 [place] deficit: pt 10:30: [id number] 00 Safety fall risk Safety Resolve 2018-112019-10-10 [place] factor d 12-02 14:55:00 [place] present 10:30: [id number] 00 Safety risk for Safety Resolve 2018-112019-10-10 [place] hospitaliza d 12-02 14:55:00 [place] tion 10:30: [id number] 00 Medication oral med Meds Resolve 2018-112019-10-13 [place] assistance d 12-02 10:23:00 [place] required 10:30: [id number] 00 Musculoskel transfer Musculoske Resolve 2018-112019-10-13 [place] etal assistance letal d 12-02 10:23:00 [place] required 10:30: [id number] 00 Musculoskel requires Musculoske Resolve 2018-112019-10-13 [place] etal human letal d 12-02 10:23:00 [place] assist to 10:30: [id number] leave home 00 Cardio edema Cardiovasc Active 2018-11 Radha benavides 12-10 Marcelo 14:55: RN 00 Safety risk for Safety Active 2018-11 Radha hospitaliza 12-13 Elliottcara tion 10:23: RN 00 Allergies, Adverse Reactions, Alerts Allergy Allergy Type Status Severity Reaction(s) Onset Inactive Treating Comments Name Date Date Clinician codeine Base Active Unknown Reaction 2019-03 [place] Ingredient Quan Medications Ordered Filled Start Stop Current Ordering Indication Dosage Frequency Signature Comments Components Medication Medication Date Date Medication? Clinician (SIG) Name Name FLUoxetine FLUoxetine 2018-11 Yes Jander Unknown Unknown 20 mg 20 mg -07 MD,Cinthia capsule capsule atorvastati atorvastati 2018-11 Yes Jander Unknown Unknown n 20 mg n 20 mg - MD,Cinthia tablet tablet ProAir HFA ProAir HFA 2018-11 Yes Jander Unknown Unknown 90 90 - MD,Cinthia mcg/actuati mcg/actuati on aerosol on aerosol inhaler inhaler Serevent Serevent 2018-11 Yes Jander Unknown Unknown Diskus 50 Diskus 50 - MD,Cinthia mcg/dose mcg/dose powder for powder for inhalation inhalation Incruse Incruse 2018-11 Yes Jander Unknown Unknown Ellipta Ellipta -07 MD,Cinthia 62.5 62.5 mcg/actuati mcg/actuati on powder on [...] Jander Unknown Unknown 10 mg 10 mg -07 MD,Cinthia tablet tablet losartan losartan 2018-11 Yes Jander Unknown Unknown 100 mg 100 mg 1-07 MD,Cinthia tablet tablet cyanocobala cyanocobala 2018-11 Yes Jander Unknown Unknown min min 1-07 MD,Cinthia (vitamin (vitamin B-12) 2,500 B-12) 2,500 mcg [...] Observation Time Observation Value Comments SYSTOLIC mm[Hg] 2019-10-14 18:08:56 142 mm[Hg] mm[Hg] Method: Sit DIASTOLIC mm[Hg] 2019-10-14 18:08:56 68 mm[Hg] mm[Hg] Method: Sit PULSE 2019-10-14 18:08:56 76 /min /min RESP RATE 2019-10-13 18:08:55 20 /min /min TEMP 2019-10-14 18:08:56 98.2 [degF] Procedures This patient has no known procedures. Results This patient has no known results.
--- OUTSIDE RECORDS SUMMARY | 2019-10-28 16:06 | XMS REPORT ---
:1945 Author Organization [facility] Care Team Providers Name Role Phone Unavailable Unavailable Unavailable Problems Condition Condition Condition Status Onset Resolution Last Treating Comments Name Details Category Date Date Treatment Clinician Date Pain frequent Pain Mgmt Resolve 2018-112019-10-13 [place] pain d 12-02 10:23:00 [place] 10:30: [id number] 00 Respiratory dyspnea Respirator Active 2018-11 [place] present y 12-02 [place] 10:30: [id number] 00 Respiratory oxygen Respirator Active 2018-11 [place] treatments y 12-02 [place] in home 10:30: [id number] 00 Respiratory knowledge/s Respirator Active 2018-11 [place] kill y 12-02 [place] deficit: pt 10:30: [id number] 00 Respiratory knowledge/s Respirator Active 2018-11 [place] kill y 12-02 [place] deficit: cg 10:30: [id number] 00 Respiratory lung sounds Respirator Active 2018-11 [place] deficit y 12-02 [place] 10:30: [id number] 00 Respiratory smoker Respirator Active 2018-11 Freida y 12-02 [place] 10:30: [id number] 00 Respiratory nebulizer Respirator Active 2018-11 [place] treatment y 12-02 [place] in home 10:30: [id number] 00 Endo/Benjamin anti-coagul Endo/Benjamin Resolve 2018-112019-10-06 [place] ation d 12-02 13:19:00 [place] therapy 10:30: [id number] 00 Sensory impaired Sensory Active 2018-11 [place] hearing 12-02 [place] 10:30: [id number] 00 Integument skin Integument Resolve 2018-112019-10-08 Fre[place] integrity d 12-02 14:40:00 [place] risk 10:30: [id number] 00 Nutrition nutritional Nutrition Resolve 2018-112019-10-13 [place] restriction d 12-02 10:23:00 [place] s 10:30: [id number] 00 Elimination urinary Eliminatio Resolve 2018-112019-10-06 [place] incontinenc n d 12-02 13:19:00 [place] e 10:30: [id number] 00 Neuro confusion Neuro/Emot Active 2018-11 [place] present ion 12-02 [place] 10:30: [id number] 00 Neuro anxiety Neuro/Emot Active 2018-11 [place] present ion 12-02 [place] 10:30: [id number] 00 Neuro depressive Neuro/Emot Active 2018-11 Freida feelings ion 12-02 Amity present 10:30: [id number] 00 Neuro impaired Neuro/Emot Active 2018-11 [place] decision-ma ion 12-02 Amity claritza 10:30: [id number] 00 Activity ADL Activity Active 2018-11 Fre[place] assistance 12-02 [place] required 10:30: [id number] 00 Activity self-care Activity Resolve 2018-112019-10-06 [place] deficit d 12-02 13:19:00 [place] 10:30: [id number] 00 Safety cannot be Safety Active 2018-11 Freida left alone 12-02 [place] 10:30: [id number] 00 Safety knowledge/s Safety Active 2018-11 Freida kill 12-02 Amity deficit: pt 10:30: [id number] 00 Safety fall risk Safety Resolve 2018-112019-10-10 Freida factor d 12-02 14:55:00 Serena present 10:30: [id number] 00 Safety risk for Safety Resolve 2018-112019-10-10 Fre[place] hospitaliza d 12-02 14:55:00 Amity tion 10:30: [id number] 00 Medication oral med Meds Resolve 2018-112019-10-13 [place] assistance d 12-02 10:23:00 [place] required 10:30: [id number] 00 Musculoskel transfer Musculoske Resolve 2018-112019-10-13 Fre[place] etal assistance letal d 12-02 10:23:00 Serena required 10:30: [id number] 00 Musculoskel requires Musculoske Resolve 2018-112019-10-13 Freida etal human letal d 12-02 10:23:00 [place] assist to 10:30: [id number] leave home 00 Cardio edema Cardiovasc Active 2018-11 Radha benavides 12-10 Marcelo 14:55: RN 00 Safety risk for Safety Active 2018-11 Radha hospitaliza 12-13 Elliottcara tion 10:23: RN 00 Allergies, Adverse Reactions, Alerts Allergy Allergy Type Status Severity Reaction(s) Onset Inactive Treating Comments Name Date Date Clinician codeine Base Active Unknown Reaction 2019-03 [place] Ingredient Quan Medications Ordered Filled Start Stop [...] Observation Time Observation Value Comments SYSTOLIC mm[Hg] 2019-10-13 18:08:55 142 mm[Hg] mm[Hg] Method: Sit DIASTOLIC mm[Hg] 2019-10-13 18:08:55 78 mm[Hg] mm[Hg] Method: Sit PULSE 2019-10-13 18:08:55 74 /min /min RESP RATE 2019-10-13 18:08:55 20 /min /min TEMP 2019-10-13 18:08:55 98.3 [degF] Procedures This patient has no known procedures. Results This patient has no known results.
--- OUTSIDE RECORDS SUMMARY | 2019-10-28 16:06 | XMS REPORT ---
:1945 Author Organization [facility] Care Team Providers Name Role Phone Unavailable Unavailable Unavailable Problems Condition Condition Condition Status Onset Resolution Last Treating Comments Name Details Category Date Date Treatment Clinician Date Pain frequent Pain Mgmt Active 2018-11 Fre[place] pain 12-02 [place] 10:30: [id number] 00 Respiratory dyspnea Respirator Active 2018-11 [place] present y 12-02 [place] 10:30: [id number] 00 Respiratory oxygen Respirator Active 2018-11 [place] treatments y 12-02 [place] in home 10:30: [id number] 00 Respiratory knowledge/s Respirator Active 2018-11 [place] kill y 12-02 [place] deficit: pt 10:30: [id number] 00 Respiratory knowledge/s Respirator Active 2018-11 [place] kill y 12-02 [place] deficit: cg 10:30: [id number] 00 Respiratory lung sounds Respirator Active 2018-11 [place] deficit y 12-02 [place] 10:30: [id number] 00 Respiratory smoker Respirator Active 2018-11 Freida y 12-02 [place] 10:30: [id number] 00 Respiratory nebulizer Respirator Active 2018-11 [place] treatment y 12-02 [place] in home 10:30: [id number] 00 Endo/Benjamin anti-coagul Endo/Benjamin Resolve 2018-112019-10-06 [place] ation d 12-02 13:19:00 [place] therapy 10:30: [id number] 00 Sensory impaired Sensory Active 2018-11 Freida hearing 12-02 [place] 10:30: [id number] 00 Integument skin Integument Resolve 2018-112019-10-08 Freida integrity d 12-02 14:40:00 [place] risk 10:30: [id number] 00 Nutrition nutritional Nutrition Active 2018-11 Freida restriction 12-02 [place] s 10:30: [id number] 00 Elimination urinary Eliminatio Resolve 2018-112019-10-06 Freida incontinenc n d 12-02 13:19:00 [place] e 10:30: [id number] 00 Neuro confusion Neuro/Emot Active 2018-11 Freida present ion 12-02 [place] 10:30: [id number] 00 Neuro anxiety Neuro/Emot Active 2018-11 Freida present ion 12-02 [place] 10:30: [id number] 00 Neuro depressive Neuro/Emot Active 2018-11 Freida feelings ion 12-02 [place] present 10:30: [id number] 00 Neuro impaired Neuro/Emot Active 2018-11 Freida decision-ma ion 12-02 [place] claritza 10:30: [id number] 00 Activity ADL Activity Active 2018-11 Freida assistance 12-02 [place] required 10:30: [id number] 00 Activity self-care Activity Resolve 2018-112019-10-06 Fre[place] deficit d 12-02 13:19:00 [place] 10:30: [id number] 00 Safety cannot be Safety Active 2018-11 Freida left alone 12-02 [place] 10:30: [id number] 00 Safety knowledge/s Safety Active 2018-11 Freida kill 12-02 [place] deficit: pt 10:30: [id number] 00 Safety fall risk Safety Active 2018-11 Freida factor 12-02 [place] present 10:30: [id number] 00 Safety risk for Safety Active 2018-11 Freida hospitaliza 12-02 [place] tion 10:30: [id number] 00 Medication oral med Meds Active 2018-11 Freida assistance 12-02 [place] required 10:30: [id number] 00 Musculoskel transfer Musculoske Active 2018-11 Freida etal assistance letal 12-02 [place] required 10:30: [id number] 00 Musculoskel requires Musculoske Active 2018-11 Freida etal human letal 12-02 [place] assist to 10:30: [id number] leave home 00 Allergies, Adverse Reactions, Alerts Allergy Allergy Type Status Severity Reaction(s) Onset Inactive Treating Comments Name Date Date Clinician layne Osobrn Active Unknown Reaction 2019-03 [place] Ingredient Quan Medications Ordered Filled Start Stop [...] powder oral powder ipratropium ipratropium 2018-11 Yes Manishder Unknown Unknown -albuterol -albuterol 12-06 ,Cinthia 0.5 mg-3 0.5 mg-3 mg(2.5 mg mg(2.5 mg base)/3 mL base)/3 mL nebulizatio nebulizatio n soln n soln Vital Signs Vital Name Observation Time Observation Value Comments SYSTOLIC mm[Hg] 2019-10-08 18:08:50 118 mm[Hg] mm[Hg] Method: Sit DIASTOLIC mm[Hg] 2019-10-08 18:08:50 70 mm[Hg] mm[Hg] Method: Sit PULSE 2019-10-08 18:08:50 79 /min /min RESP RATE 2019-10-08 18:08:50 20 /min /min TEMP 2019-10-08 18:08:50 97.6 [degF] Procedures This patient has no known procedures. Results This patient has no known results.
--- OUTSIDE RECORDS SUMMARY | 2019-10-28 16:06 | XMS REPORT ---
:1945 Author Organization [facility] Care Team Providers Name Role Phone Unavailable Unavailable Unavailable Problems Condition Condition Condition Status Onset Resolution Last Treating Comments Name Details Category Date Date Treatment Clinician Date Pain frequent Pain Mgmt Resolve 2018-112019-10-13 [place] pain d 12-02 10:23:00 [place] 10:30: [id number] 00 Respiratory dyspnea Respirator Active 2018-11 Fre[place] present y 12-02 [place] 10:30: [id number] 00 Respiratory oxygen Respirator Active 2018-11 [place] treatments y 12-02 [place] in home 10:30: [id number] 00 Respiratory knowledge/s Respirator Active 2018-11 [place] kill y 12-02 [place] deficit: pt 10:30: [id number] 00 Respiratory knowledge/s Respirator Active 2018-11 [place] kill y 12-02 [place] deficit: cg 10:30: [id number] 00 Respiratory lung sounds Respirator Active 2018-11 [place] deficit y 12-02 [place] 10:30: [id number] 00 Respiratory smoker Respirator Active 2018-11 Freida y 12-02 [place] 10:30: [id number] 00 Respiratory nebulizer Respirator Active 2018-11 [place] treatment y 12-02 [place] in home 10:30: [id number] 00 Endo/Benjamin anti-coagul Endo/Benjamin Resolve 2018-112019-10-06 [place] ation d 12-02 13:19:00 [place] therapy 10:30: [id number] 00 Sensory impaired Sensory Active 2018-11 [place] hearing 12-02 [place] 10:30: [id number] 00 Integument skin Integument Resolve 2018-112019-10-08 Fre[place] integrity d 12-02 14:40:00 [place] risk 10:30: [id number] 00 Nutrition nutritional Nutrition Resolve 2018-112019-10-13 [place] restriction d 12-02 10:23:00 [place] s 10:30: [id number] 00 Elimination urinary Eliminatio Resolve 2018-112019-10-06 Fre[place] incontinenc n d 12-02 13:19:00 [place] e 10:30: [id number] 00 Neuro confusion Neuro/Emot Active 2018-11 Fre[place] present ion 12-02 [place] 10:30: [id number] 00 Neuro anxiety Neuro/Emot Active 2018-11 Fre[place] present ion 12-02 [place] 10:30: [id number] 00 Neuro depressive Neuro/Emot Active 2018-11 Fre[place] feelings ion 12-02 [place] present 10:30: [id number] 00 Neuro impaired Neuro/Emot Active 2018-11 [place] decision-ma ion 12-02 [place] claritza 10:30: [id number] 00 Activity ADL Activity Active 2018-11 [place] assistance 12-02 [place] required 10:30: [id number] 00 Activity self-care Activity Resolve 2018-112019-10-06 [place] deficit d 12-02 13:19:00 [place] 10:30: [id number] 00 Safety cannot be Safety Active 2018-11 Fre[place] left alone 12-02 [place] 10:30: [id number] 00 Safety knowledge/s Safety Active 2018-11 Freida kill 12-02 [place] deficit: pt 10:30: [id number] 00 Safety fall risk Safety Resolve 2018-112019-10-10 Fre[place] factor d 12-02 14:55:00 [place] present 10:30: [id number] 00 Safety risk for Safety Resolve 2018-112019-10-10 Fre[place] hospitaliza d 12-02 14:55:00 [place] tion 10:30: [id number] 00 Medication oral med Meds Resolve 2018-112019-10-13 [place] assistance d 12-02 10:23:00 [place] required 10:30: [id number] 00 Musculoskel transfer Musculoske Resolve 2018-112019-10-13 Fre[place] etal assistance letal d 12-02 10:23:00 [place] required 10:30: [id number] 00 Musculoskel requires Musculoske Resolve 2018-112019-10-13 Fre[place] etal human letal d 12-02 10:23:00 [place] assist to 10:30: [id number] leave home 00 Cardio edema Cardiovasc Active 2018-11 Radha benavides 12-10 Marcelo 14:55: RN 00 Safety risk for Safety Active 2018-11 Radha hospitaliza 12-13 Elliottcara tion 10:23: RN 00 Allergies, Adverse Reactions, Alerts Allergy Allergy Type Status Severity Reaction(s) Onset Inactive Treating Comments Name Date Date Clinician codeine Base Active Unknown Reaction 2019-03 [place] Ingredient Quan Medications Ordered Filled Start Stop [...]
--- OUTSIDE RECORDS SUMMARY | 2019-10-28 16:06 | XMS REPORT ---
:1945 Author Organization [facility] Care Team Providers Name Role Phone Unavailable Unavailable Unavailable Problems Condition Condition Condition Status Onset Resolution Last Treating Comments Name Details Category Date Date Treatment Clinician Date Pain frequent Pain Mgmt Active 2018-11 [place] pain 12-02 [place] 10:30: [id number] 00 Respiratory dyspnea Respirator Active 2018-11 [place] present y 12-02 [place] 10:30: [id number] 00 Respiratory oxygen Respirator Active 2018-11 [place] treatments y 12-02 [place] in home 10:30: [id number] 00 Respiratory knowledge/s Respirator Active 2018-11 [place] kill y 12-02 [place] deficit: pt 10:30: [id number] 00 Respiratory knowledge/s Respirator Active 2018-11 [place] kill y 12-02 [place] deficit: cg 10:30: [id number] 00 Respiratory lung sounds Respirator Active 2018-11 [place] deficit y 12-02 [place] 10:30: [id number] 00 Respiratory smoker Respirator Active 2018-11 [place] y 12-02 [place] 10:30: [id number] 00 Respiratory nebulizer Respirator Active 2018-11 [place] treatment y 12-02 [place] in home 10:30: [id number] 00 Endo/Benjamin anti-coagul Endo/Benjamin Resolve 2018-112019-10-06 [place] ation d 12-02 13:19:00 [place] therapy 10:30: [id number] 00 Sensory impaired Sensory Active 2018-11 [place] hearing 12-02 [place] 10:30: [id number] 00 Integument skin Integument Active 2018-11 Fre[place] integrity 12-02 [place] risk 10:30: [id number] 00 Nutrition nutritional Nutrition Active 2018-11 [place] restriction 12-02 [place] s 10:30: [id number] 00 Elimination urinary Eliminatio Resolve 2018-112019-10-06 [place] incontinenc n d 12-02 13:19:00 [place] e 10:30: [id number] 00 Neuro confusion Neuro/Emot Active 2018-11 [place] present ion 12-02 [place] 10:30: [id number] 00 Neuro anxiety Neuro/Emot Active 2018-11 [place] present ion 12-02 [place] 10:30: [id number] 00 Neuro depressive Neuro/Emot Active 2018-11 [place] feelings ion 12-02 [place] present 10:30: [id number] 00 Neuro impaired Neuro/Emot Active 2018-11 [place] decision-ma ion 12-02 [place] claritza 10:30: [id number] 00 Activity ADL Activity Active 2018-11 [place] assistance 12-02 [place] required 10:30: [id number] 00 Activity self-care Activity Resolve 2018-112019-10-06 [place] deficit d 12-02 13:19:00 [place] 10:30: [id number] 00 Safety cannot be Safety Active 2018-11 [place] left alone 12-02 [place] 10:30: [id number] 00 Safety knowledge/s Safety Active 2018-11 [place] kill 12-02 [place] deficit: pt 10:30: [id number] 00 Safety fall risk Safety Active 2018-11 [place] factor 12-02 [place] present 10:30: [id number] 00 Safety risk for Safety Active 2018-11 [place] hospitaliza 12-02 [place] tion 10:30: [id number] 00 Medication oral med Meds Active 2018-11 [place] assistance 12-02 [place] required 10:30: [id number] 00 Musculoskel transfer Musculoske Active 2018-11 [place] etal assistance letal 12-02 [place] required 10:30: [id number] 00 Musculoskel requires Musculoske Active 2018-11 [place] etal human letal 12-02 [place] assist to 10:30: [id number] leave home 00 Allergies, Adverse Reactions, Alerts Allergy Allergy Type Status Severity Reaction(s) Onset Inactive Treating Comments Name Date Date Clinician codeine Base Active Unknown Reaction 2019-03 [place] Ingredient Quan Medications Ordered Filled Start Stop Current Ordering Indication Dosage Frequency Signature Comments Components Medication Medication Date Date Medication? Clinician (SIG) Name Name FLUoxetine FLUoxetine 2018-11 Yes [place] Unknown Unknown 20 mg 20 mg 12-02 [...] Unknown Unknown mg capsule mg capsule 12-02 MD,Cinthia Miralax 17 Miralax 17 2018-11 Yes [place] Unknown Unknown gram/dose gram/dose - ,[place] oral powder oral powder ipratropium ipratropium 2018-11 Yes Manishder Unknown Unknown -albuterol -albuterol - ,[place] 0.5 mg-3 0.5 mg-3 mg(2.5 mg mg(2.5 mg base)/3 mL base)/3 mL nebulizatio nebulizatio n soln n soln Vital Signs Vital Name Observation Time Observation Value Comments SYSTOLIC mm[Hg] 2019-10-07 18:08:49 130 mm[Hg] mm[Hg] Method: Sit DIASTOLIC mm[Hg] 2019-10-07 18:08:49 78 mm[Hg] mm[Hg] Method: Sit PULSE 2019-10-07 18:08:49 78 /min /min RESP RATE 2019-10-06 18:08:48 22 /min /min TEMP 2019-10-07 18:08:49 98.0 [degF] Procedures This patient has no known procedures. Results This patient has no known results.
--- OUTSIDE RECORDS SUMMARY | 2019-10-28 16:06 | XMS REPORT ---
:1945 Author Organization [facility] Care Team Providers Name Role Phone Unavailable Unavailable Unavailable Problems Condition Condition Condition Status Onset Resolution Last Treating Comments Name Details Category Date Date Treatment Clinician Date Pain frequent Pain Mgmt Active 2018-11 [place] pain 12-02 [place] 10:30: [id number] Respiratory dyspnea Respirator Active 2018-11 [place] present y 12-02 [place] 10:30: [id number] 00 Respiratory oxygen Respirator Active 2018-11 [place] treatments y 12-02 [place] in home 10:30: [id number] 00 Respiratory knowledge/s Respirator Active 2018-11 [place] kill y 12-02 [place] deficit: pt 10:30: [id number] 00 Respiratory knowledge/s Respirator Active 2018-11 [place] kill y 12-02 [place] deficit: cg 10:30: [id number] 00 Respiratory lung sounds Respirator Active 2018-11 [place] deficit y 12-02 [place] 10:30: [id number] 00 Respiratory smoker Respirator Active 2018-11 [place] y 12-02 [place] 10:30: [id number] 00 Respiratory nebulizer Respirator Active 2018-11 [place] treatment y 12-02 [place] in home 10:30: [id number] 00 Endo/Benjamin anti-coagul Endo/Benjamin Resolve 2018-112019-10-06 [place] ation d 12-02 13:19:00 [place] therapy 10:30: [id number] 00 Sensory impaired Sensory Active 2018-11 [place] hearing 12-02 [place] 10:30: [id number] 00 Integument skin Integument Resolve 2018-112019-10-08 [place] integrity d 12-02 14:40:00 [place] risk 10:30: [id number] 00 Nutrition nutritional Nutrition Active 2018-11 [place] restriction 12-02 [place] s 10:30: [id number] 00 Elimination urinary Eliminatio Resolve 2018-112019-10-06 [place] incontinenc n d 12-02 13:19:00 [place] e 10:30: [id number] 00 Neuro confusion Neuro/Emot Active 2018-11 [place] present ion 12-02 [place] 10:30: [id number] 00 Neuro anxiety Neuro/Emot Active 2018-11 [place] present ion 12-02 [place] 10:30: [id number] 00 Neuro depressive Neuro/Emot Active 2018-11 [place] feelings ion 12-02 [place] present 10:30: [id number] 00 Neuro impaired Neuro/Emot Active 2018-11 [place] decision-ma ion 12-02 [place] claritza 10:30: [id number] 00 Activity ADL Activity Active 2018-11 [place] assistance 12-02 [place] required 10:30: [id number] 00 Activity self-care Activity Resolve 2018-112019-10-06 [place] deficit d 12-02 13:19:00 [place] 10:30: [id number] 00 Safety cannot be Safety Active 2018-11 [place] left alone 12-02 [place] 10:30: [id number] 00 Safety knowledge/s Safety Active 2018-11 [place] kill 12-02 [place] deficit: pt 10:30: [id number] 00 Safety fall risk Safety Active 2018-11 [place] factor 12-02 [place] present 10:30: [id number] 00 Safety risk for Safety Active 2018-11 [place] hospitaliza 12-02 [place] tion 10:30: [id number] 00 Medication oral med Meds Active 2018-11 [place] assistance 12-02 [place] required 10:30: [id number] 00 Musculoskel transfer Musculoske Active 2018-11 [place] etal assistance letal 12-02 [place] required 10:30: [id number] 00 Musculoskel requires Musculoske Active 2018-11 [place] etal human letal 12-02 [place] assist to 10:30: [id number] leave home 00 Allergies, Adverse Reactions, Alerts Allergy Allergy Type Status Severity Reaction(s) Onset Inactive Treating Comments Name Date Date Clinician layne Osborn Active Unknown Reaction 2019-03 [place] Ingredient Quan Medications Ordered Filled Start Stop [...] Jander Unknown Unknown 90 90 12-02 Cinthia ELILSON mcg/actuati mcg/actuati on aerosol on aerosol inhaler [...] Observation Time Observation Value Comments SYSTOLIC mm[Hg] 2019-10-09 18:08:51 126 mm[Hg] mm[Hg] Method: Sit DIASTOLIC mm[Hg] 2019-10-09 18:08:51 74 mm[Hg] mm[Hg] Method: Sit PULSE 2019-10-09 18:08:51 78 /min /min RESP RATE 2019-10-08 18:08:50 20 /min /min TEMP 2019-10-09 18:08:51 97.7 [degF] Procedures This patient has no known procedures. Results This patient has no known results.
--- OUTSIDE RECORDS SUMMARY | 2019-10-28 16:06 | XMS REPORT ---
:1945 Author Organization [facility] Care Team Providers Name Role Phone Unavailable Unavailable Unavailable Problems Condition Condition Condition Status Onset Resolution Last Treating Comments Name Details Category Date Date Treatment Clinician Date Pain frequent Pain Mgmt Active 2018-11 [place] pain 12-02 [place] 10:30: [id number] Respiratory dyspnea Respirator Active 2018-11 [place] present y 12-02 [place] 10:30: [id number] 00 Respiratory oxygen Respirator Active 2018-11 [place] treatments y 12-02 [place] in home 10:30: [id number] 00 Respiratory knowledge/s Respirator Active 2018-11 [place] kill y 12-02 [place] deficit: pt 10:30: [id number] 00 Respiratory knowledge/s Respirator Active 2018-11 [place] kill y 12-02 [place] deficit: cg 10:30: [id number] 00 Respiratory lung sounds Respirator Active 2018-11 [place] deficit y 12-02 [place] 10:30: [id number] 00 Respiratory smoker Respirator Active 2018-11 [place] y 12-02 [place] 10:30: [id number] 00 Respiratory nebulizer Respirator Active 2018-11 [place] treatment y 12-02 [place] in home 10:30: [id number] 00 Endo/Benjamin anti-coagul Endo/Benjamin Resolve 2018-112019-10-06 [place] ation d 12-02 13:19:00 [place] therapy 10:30: [id number] 00 Sensory impaired Sensory Active 2018-11 [place] hearing 12-02 [place] 10:30: [id number] 00 Integument skin Integument Active 2018-11 [place] integrity 12-02 [place] risk 10:30: [id number] 00 Nutrition nutritional Nutrition Active 2018-11 [place] restriction 12-02 [place] s 10:30: [id number] 00 Elimination urinary Eliminatio Resolve 2018-112019-10-06 [place] incontinenc n d 12-02 13:19:00 [place] e 10:30: [id number] 00 Neuro confusion Neuro/Emot Active 2018-11 [place] present ion 12-02 [place] 10:30: [id number] 00 Neuro anxiety Neuro/Emot Active 2018-11 [place] present ion 12-02 [place] 10:30: [id number] 00 Neuro depressive Neuro/Emot Active 2018-11 [place] feelings ion 12-02 [place] present 10:30: [id number] 00 Neuro impaired Neuro/Emot Active 2018-11 [place] decision-ma ion 12-02 [place] claritza 10:30: [id number] 00 Activity ADL Activity Active 2018-11 [place] assistance 12-02 [place] required 10:30: [id number] 00 Activity self-care Activity Resolve 2018-112019-10-06 [place] deficit d 12-02 13:19:00 [place] 10:30: [id number] 00 Safety cannot be Safety Active 2018-11 [place] left alone 12-02 [place] 10:30: [id number] 00 Safety knowledge/s Safety Active 2018-11 [place] kill 12-02 [place] deficit: pt 10:30: [id number] 00 Safety fall risk Safety Active 2018-11 [place] factor 12-02 [place] present 10:30: [id number] 00 Safety risk for Safety Active 2018-11 [place] hospitaliza 12-02 [place] tion 10:30: [id number] 00 Medication oral med Meds Active 2018-11 [place] assistance 12-02 [place] required 10:30: [id number] 00 Musculoskel transfer Musculoske Active 2018-11 [place] etal assistance letal 12-02 [place] required 10:30: [id number] 00 Musculoskel requires Musculoske Active 2018-11 [place] etal human letal 12-02 [place] assist to 10:30: [id number] leave home 00 Allergies, Adverse Reactions, Alerts Allergy Allergy Type Status Severity Reaction(s) Onset Inactive Treating Comments Name Date Date Clinician codeine Base Active Unknown Reaction 2019-03 [place] Ingredient Quan Medications Ordered Filled Start Stop Current Ordering Indication Dosage Frequency Signature Comments Components Medication Medication Date Date Medication? Clinician (SIG) Name Name FLUoxetine FLUoxetine 2018-11 Yes Catr[place]ito Unknown Unknown 20 mg 20 mg 12-02 Cinhtia ELLISON capsule capsule atorvastati atorvastati 2018-11 Yes [...] Yes Catrachito Unknown Unknown gram/dose gram/dose 12-02 ,Cinthia oral powder oral powder ipratropium ipratropium 2018-11 Yes Catrachito Unknown Unknown -albuterol -albuterol 12-06 ,Cinthia 0.5 mg-3 0.5 mg-3 mg(2.5 mg mg(2.5 mg base)/3 mL base)/3 mL nebulizatio nebulizatio n soln n soln Vital Signs Vital Name Observation Time Observation Value Comments SYSTOLIC mm[Hg] 2019-10-06 18:08:48 132 mm[Hg] mm[Hg] Method: Sit DIASTOLIC mm[Hg] 2019-10-06 18:08:48 82 mm[Hg] mm[Hg] Method: Sit PULSE 2019-10-06 18:08:48 85 /min /min RESP RATE 2019-10-06 18:08:48 22 /min /min TEMP 2019-10-06 18:08:48 97.6 [degF] Procedures This patient has no known procedures. Results This patient has no known results.
--- OUTSIDE RECORDS SUMMARY | 2019-10-28 16:06 | XMS REPORT ---
:1945 Author Organization [facility] Care Team Providers Name Role Phone Unavailable Unavailable Unavailable Problems Condition Condition Condition Status Onset Resolution Last Treating Comments Name Details Category Date Date Treatment Clinician Date Pain frequent Pain Mgmt Active 2018-11 [place] pain 12-02 [place] 10:30: [id number] 00 Respiratory dyspnea Respirator Active 2018-11 [place] present y 12-02 [place] 10:30: [id number] 00 Respiratory oxygen Respirator Active 2018-11 [place] treatments y 12-02 [place] in home 10:30: [id number] 00 Respiratory knowledge/s Respirator Active 2018-11 [place] kill y 12-02 [place] deficit: pt 10:30: [id number] 00 Respiratory knowledge/s Respirator Active 2018-11 [place] kill y 12-02 [place] deficit: cg 10:30: [id number] 00 Respiratory lung sounds Respirator Active 2018-11 [place] deficit y 12-02 [place] 10:30: [id number] 00 Respiratory smoker Respirator Active 2018-11 [place] y 12-02 [place] 10:30: [id number] 00 Respiratory nebulizer Respirator Active 2018-11 [place] treatment y 12-02 [place] in home 10:30: [id number] 00 Endo/Benjamin anti-coagul Endo/Benjamin Resolve 2018-112019-10-06 [place] ation d 12-02 13:19:00 [place] therapy 10:30: [id number] 00 Sensory impaired Sensory Active 2018-11 [place] hearing 12-02 [place] 10:30: [id number] 00 Integument skin Integument Resolve 2018-112019-10-08 [place] integrity d 12-02 14:40:00 [place] risk 10:30: [id number] 00 Nutrition nutritional Nutrition Active 2018-11 [place] restriction 12-02 [place] s 10:30: [id number] 00 Elimination urinary Eliminatio Resolve 2018-112019-10-06 [place] incontinenc n d 12-02 13:19:00 [place] e 10:30: [id number] 00 Neuro confusion Neuro/Emot Active 2018-11 [place] present ion 12-02 [place] 10:30: [id number] 00 Neuro anxiety Neuro/Emot Active 2018-11 [place] present ion 12-02 [place] 10:30: [id number] 00 Neuro depressive Neuro/Emot Active 2018-11 [place] feelings ion 12-02 [place] present 10:30: [id number] 00 Neuro impaired Neuro/Emot Active 2018-11 [place] decision-ma ion 12-02 [place] claritza 10:30: [id number] 00 Activity ADL Activity Active 2018-11 [place] assistance 12-02 [place] required 10:30: [id number] 00 Activity self-care Activity Resolve 2018-112019-10-06 [place] deficit d 12-02 13:19:00 [place] 10:30: [id number] 00 Safety cannot be Safety Active 2018-11 [place] left alone 12-02 [place] 10:30: [id number] 00 Safety knowledge/s Safety Active 2018-11 [place] kill 12-02 [place] deficit: pt 10:30: [id number] 00 Safety fall risk Safety Resolve 2018-112019-10-10 [place] factor d 12-02 14:55:00 [place] present 10:30: [id number] 00 Safety risk for Safety Resolve 2018-112019-10-10 [place] hospitaliza d 12-02 14:55:00 [place] tion 10:30: [id number] 00 Medication oral med Meds Active 2018-11 [place] assistance 12-02 [place] required 10:30: [id number] 00 Musculoskel transfer Musculoske Active 2018-11 [place] etal assistance letal 12-02 [place] required 10:30: [id number] 00 Musculoskel requires Musculoske Active 2018-11 [place] etal human letal 12-02 [place] assist to 10:30: [id number] leave home 00 Cardio edema Cardiovasc Active 2018-11 Radha kennedy 12-10 [place] 14:55: RN 00 Allergies, Adverse Reactions, Alerts Allergy Allergy Type Status Severity Reaction(s) Onset Inactive Treating Comments Name Date Date Clinician codeine Base Active Unknown Reaction 2019-03 [place] Ingredient Quan Medications Ordered Filled Start Stop [...] Yes Jander Unknown Unknown 90 90 12-02 ,Cinthia mcg/actuati mcg/actuati on aerosol on aerosol [...] Yes Jander Unknown Unknown mg mg 12-02 MD,Cinthia capsule,ext capsule,ext ended ended release release Myrbetriq Myrbetriq 2018-11 Yes Jander Unknown Unknown 50 mg 50 mg 12-02 MD,Cinthia tablet,exte tablet,exte nded nded release release primidone primidone 2018-11 Yes Jander Unknown Unknown 250 mg 250 mg 12-02 ,Cinthia tablet tablet Aspirin Low Aspirin Low 2018-11 Yes Jander Unknown Unknown Dose 81 mg Dose 81 mg 12-02 ,Cinthia tablet,manny tablet,manny yed release yed release amLODIPine amLODIPine 2018-11 Yes Jander Unknown Unknown 10 mg 10 mg - ,Cinthia tablet tablet losartan losartan 2018-11 Yes [...] Jander Unknown Unknown 15 mg 15 mg - ,Cinthia tablet tablet Chest Chest 2018-11 Yes [...]
--- OUTSIDE RECORDS SUMMARY | 2019-10-28 16:06 | XMS REPORT ---
:1945 Author Organization [facility] Care Team Providers Name Role Phone Unavailable Unavailable Unavailable Problems Condition Condition Condition Status Onset Resolution Last Treating Comments Name Details Category Date Date Treatment Clinician Date Pain frequent Pain Mgmt Active 2018-11 [place] pain 12-02 [place] 10:30: [id number] 00 Respiratory dyspnea Respirator Active 2018-11 [place] present y 12-02 [place] 10:30: [id number] 00 Respiratory oxygen Respirator Active 2018-11 [place] treatments y 12-02 [place] in home 10:30: [id number] 00 Respiratory knowledge/s Respirator Active 2018-11 [place] kill y 12-02 [place] deficit: pt 10:30: [id number] 00 Respiratory knowledge/s Respirator Active 2018-11 [place] kill y 12-02 [place] deficit: cg 10:30: [id number] 00 Respiratory lung sounds Respirator Active 2018-11 [place] deficit y 12-02 [place] 10:30: [id number] 00 Respiratory smoker Respirator Active 2018-11 [place] y 12-02 [place] 10:30: [id number] 00 Respiratory nebulizer Respirator Active 2018-11 [place] treatment y 12-02 [place] in home 10:30: [id number] 00 Endo/Benjamin anti-coagul Endo/Benjamin Resolve 2018-112019-10-06 [place] ation d 12-02 13:19:00 [place] therapy 10:30: [id number] 00 Sensory impaired Sensory Active 2018-11 [place] hearing 12-02 [place] 10:30: [id number] 00 Integument skin Integument Resolve 2018-112019-10-08 [place] integrity d 12-02 14:40:00 [place] risk 10:30: [id number] 00 Nutrition nutritional Nutrition Active 2018-11 [place] restriction 12-02 [place] s 10:30: [id number] 00 Elimination urinary Eliminatio Resolve 2018-112019-10-06 [place] incontinenc n d 12-02 13:19:00 [place] e 10:30: [id number] 00 Neuro confusion Neuro/Emot Active 2018-11 [place] present ion 12-02 [place] 10:30: [id number] 00 Neuro anxiety Neuro/Emot Active 2018-11 [place] present ion 12-02 [place] 10:30: [id number] 00 Neuro depressive Neuro/Emot Active 2018-11 [place] feelings ion 12-02 [place] present 10:30: [id number] 00 Neuro impaired Neuro/Emot Active 2018-11 [place] decision-ma ion 12-02 [place] claritza 10:30: [id number] 00 Activity ADL Activity Active 2018-11 [place] assistance 12-02 [place] required 10:30: [id number] 00 Activity self-care Activity Resolve 2018-112019-10-06 [place] deficit d 12-02 13:19:00 [place] 10:30: [id number] 00 Safety cannot be Safety Active 2018-11 [place] left alone 12-02 [place] 10:30: [id number] 00 Safety knowledge/s Safety Active 2018-11 [place] kill 12-02 [place] deficit: pt 10:30: [id number] 00 Safety fall risk Safety Resolve 2018-112019-10-10 [place] factor d 12-02 14:55:00 [place] present 10:30: [id number] 00 Safety risk for Safety Resolve 2018-112019-10-10 [place] hospitaliza d 12-02 14:55:00 [place] tion 10:30: [id number] 00 Medication oral med Meds Active 2018-11 [place] assistance 12-02 [place] required 10:30: [id number] 00 Musculoskel transfer Musculoske Active 2018-11 [place] etal assistance letal 12-02 [place] required 10:30: [id number] 00 Musculoskel requires Musculoske Active 2018-11 [place] etal human letal 12-02 [place] assist to 10:30: [id number] leave home 00 Cardio edema Cardiovasc Active 2018-11 Radha kennedy 12-10 [place] 14:55: RN 00 Allergies, Adverse Reactions, Alerts Allergy Allergy Type Status Severity Reaction(s) Onset Inactive Treating Comments Name Date Date Clinician codeine Base Active Unknown Reaction 2019-03 [place] Ingredient Quan Medications Ordered Filled Start Stop [...]
--- NOTE | 2019-10-28 16:49 | CONS ---
CONSULTATION REPORT: DATE OF CONSULT: 10/28/19 PRIMARY CARE PROVIDER: Dr. Winston. ORTHOPEDIC ATTENDING: Dr. Javed Aj. (DICTATED BY BERNY ANDREWS) CHIEF COMPLAINT: Left ankle fracture. HISTORY OF PRESENT ILLNESS: The patient is a 74-year-old female. She has a past medical history of primary lateral sclerosis. She is wheelchair-bound at baseline, though she does stand to pivot. We are consulted today as she fell in her bathroom last week with her left ankle twisting under her. She was immediately unable to bear weight. She went to the urgent care. She was diagnosed with ankle fracture and instructed to follow up with orthopedics. Films are not available to me and she does not know what type of ankle fracture this is. Currently, her ankle is wrapped in an Louie wrap and she is instructed to be nonweightbearing. She has not yet seen orthopedics in followup. She states that her ankle is painful on the lateral aspect and there is no associated numbness or tingling. Pain is sharp with any movement, relieved with rest. PAST MEDICAL HISTORY: Significant for primary lateral sclerosis with functional quadriplegia, wheelchair-bound; arthritis; chronic muscle spasm, on baclofen pump; COPD; left kidney cancer; colon cancer surgery; chronic osteoarthritis; radiation for skin cancer; chronic urinary incontinence. MEDICATIONS ON ADMISSION: 1. Primidone 250 mg p.o. b.i.d. 2. Myrbetriq 50 mg p.o. daily. 3. Detrol 4 mg daily. 4. Atorvastatin 20 mg p.o. q.p.m. 5. Vitamin B12 at 250 mcg p.o. daily. 6. Fluoxetine 20 mg p.o. q.a.m. 7. Aspirin 81 mg daily. 8. Losartan 100 mg p.o. daily. 9. Amlodipine 10 mg p.o. q.p.m. 10. Mirtazapine 15 mg p.o. at bedtime. 11. Guaifenesin 400 mg p.o. daily p.r.n. 12. Serevent Diskus 1 puff inhaled b.i.d. 13. Incruse Ellipta MDI 1 inhalation daily. 14. Docusate 100 mg p.o. b.i.d. p.r.n. 15. DuoNeb 1 neb inhaled q.6 hours p.r.n. 16. Prednisone 40 mg p.o. daily. ALLERGIES: CODEINE. FAMILY HISTORY: Mother is alive at age 94. Father , cancer and suicide. SOCIAL HISTORY: The patient is a 9-tjqk-y-day social smoker. She does not use any alcohol or drugs. She lives in a mobile home with a supportive aide. She is confined to a wheelchair. REVIEW OF SYSTEMS: General: Denies any fever. HEENT: Denies any head trauma or headache. Cardiac: No chest pain. Respiratory: Positive for shortness of breath. GI: No abdominal pain. Musculoskeletal: Positive for left ankle pain with any movement. Neuro: No numbness or tingling in bilateral lower extremities, + involuntary muscle movements, clonus PHYSICAL EXAM: Vital Signs: Temperature 98.6, pulse rate 83, respiratory rate 20, oxygen saturation 99% on 2 L, blood pressure 146/62. General: In no acute distress. Lungs: Normal rate and effort of breathing using nasal cannula. Abdomen: No obvious distention. Extremities: Moving bilateral upper extremities well. Skin envelope intact. Nontender to palpation. Right lower extremity: Skin envelope is intact. Nontender to palpation. Moving joints well. Left lower extremity: Skin envelope intact. Ankle is in an Louie wrap. This was removed. There is ecchymosis over the lateral malleolus as well as edema. The patient is tender to palpation over the lateral malleolus as well as the lateral foot. There is clonus with ankle df. She is able to flex and extend all MTPs without pain. She is nontender to palpation medially. There is no obvious deformity of the ankle joint. Able to f/e knee and hip without pain. DP2+, sensation intact to light touch distally. DIAGNOSTIC STUDIES: Awaiting x-rays of the left ankle which have been ordered. ASSESSMENT: Ms. Augustin is a 74-year-old female. She has a likely left ankle fracture, though films are not yet available to me. PLAN: The patient will be nonweightbearing on the left lower extremity. Well padded lower leg splint placed with care taken to bring ankle as close to 90 degrees as possible without inducing clonus. BERNY HARMAN [id number]/[facility] #: [id number] [place]
[2019-10-28] MEDS: oxyCODONE/Acetamin 5/325 MG* TAB PO PRN ×2 (17:20→21:42)
[2019-10-28] MEDS: Atorvastatin* 20 MG TAB PO SCH (17:21)
[2019-10-28] MEDS: amLODIPine TAB* 5 MG PO SCH (17:21)
[2019-10-28] MEDS: Mirtazapine TAB* 15 MG PO SCH (21:42)
[2019-10-28] MEDS: Nicotine Patch Removal NOTE PATCH OFF SCH (21:46)
[2019-10-29] MEDS: Albuterol/Ipratropium NEB.SOL* Albuterol 2.5 MG/Ipratropium 0.5 MG 3 ML INH SCH ×5 (03:11→19:43)
[2019-10-29] MEDS: Heparin VIAL(*) 5000 UNITS/ML VIAL (FIVE THOUSAND) SUBCUT SCH ×3 (05:56→21:12)
[2019-10-29] MEDS: oxyCODONE/Acetamin 5/325 MG* TAB PO PRN ×3 (08:20→19:20)
[2019-10-29] MEDS: Mometasone/Formoter 200/5 MDI INH SCH ×2 (09:34→19:59)
[2019-10-29] MEDS: SPIRIVA Respimat* (tiotropium) 2.5 mcg/inh Inhaler INH SCH (09:34)
[2019-10-29] MEDS: Nicotine PATCH 21 MG/24 HR* PATCH TRANSDERM SCH ×2 (10:17→12:52)
[2019-10-29] MEDS: predniSONE TAB* 20 MG PO SCH (10:40)
[2019-10-29] MEDS: Losartan TAB* 25 MG PO SCH (10:41)
[2019-10-29] MEDS: Primidone TAB(*) 250 MG PO SCH ×2 (10:41→21:12)
[2019-10-29] MEDS: Aspirin EC TAB* 81 MG TAB.EC PO SCH (10:42)
[2019-10-29] MEDS: FLUoxetine CAP* 20 MG PO SCH (10:42)
[2019-10-29] MEDS: Azithromycin TAB* 250 MG PO SCH (10:43)
--- NOTE | 2019-10-29 12:38 | PN ---
Subjective Date of Service: 10/29/19 Interval History: Patient reports that she slept well last night. reports that left ankle pain is improved since splint was placed. Denies chest pain. Denies fever or chills. Denies abd pain n/v/d Family History: Unchanged from Admission Social History: Unchanged from Admission Past Medical History: Unchanged from Admission Objective Active Medications: Acetaminophen (Tylenol Tab*) 650 mg PO Q6H PRN PRN Reason: PAIN - MILD Last Admin: 10/28/19 15:58 Dose: 650 mg Albuterol/Ipratropium (Duoneb (Albuterol 2.5 Mg/Ipratropium 0.5 Mg)) 1 neb INH Q4H [facility] Last Admin: 10/29/19 09:33 Dose: 1 neb Albuterol/Ipratropium (Duoneb (Albuterol 2.5 Mg/Ipratropium 0.5 Mg)) 1 neb INH Q4H PRN PRN Reason: SOB/WHEEZING Amlodipine Besylate (Norvasc Tab*) 10 mg PO QPM [facility] Last Admin: 10/28/19 17:21 Dose: 10 mg Aspirin (Aspirin Ec Tab*) 81 mg PO DAILY [facility] Last Admin: 10/29/19 10:42 Dose: 81 mg Atorvastatin Calcium (Lipitor*) 20 mg PO QPM [facility] Last Admin: 10/28/19 17:21 Dose: 20 mg Azithromycin (Zithromax Tab*) 250 mg PO DAILY [facility] Stop: 10/31/19 09:01 Last Admin: 10/29/19 10:43 Dose: 250 mg Docusate Sodium (Colace Cap*) 100 mg PO BID PRN PRN Reason: CONSTIPATION Fluoxetine HCl (Prozac Cap*) 20 mg PO QAM [facility] Last Admin: 10/29/19 10:42 Dose: 20 mg Guaifenesin/Dextromethorphan (Robitussin Dm 100 Mg/10 Mg In 5 Ml) 10 ml PO Q4H PRN PRN Reason: COUGH Heparin Sodium (Porcine) (Heparin Vial(*)) 5,000 units SUBCUT Q8HR [facility] Last Admin: 10/29/19 05:56 Dose: 5,000 units Ceftriaxone Sodium 1 gm/ (Sodium Chloride) 50 mls @ 100 mls/hr IVPB Q24H [facility] Stop: 12/08/19 14:29 Last Admin: 10/28/19 14:24 Dose: 100 mls/hr Losartan Potassium (Cozaar Tab*) 100 mg PO DAILY [facility] Last Admin: 10/29/19 10:41 Dose: 100 mg Mirtazapine (Remeron Tab*) 15 mg PO BEDTIME [facility] Last Admin: 10/28/19 21:42 Dose: 15 mg Mometasone Furoate/Formoterol Fumar (Dulera 200/5 Mdi*) 2 puff INH BID [facility] Last Admin: 10/29/19 09:34 Dose: 2 puff Nicotine (Nicotine Patch 21 Mg/24 Hr*) 1 patch TRANSDERM DAILY@0800 [facility] Last Admin: 10/29/19 10:17 Dose: Not Given Nicotine Polacrilex (Nicotine Gum*) 2 mg PO Q2H PRN PRN Reason: CRAVING Oxycodone/Acetaminophen (Percocet 5/325 Tab*) 1 tab PO Q4H PRN PRN Reason: PAIN - MODERATE Last Admin: 10/29/19 08:20 Dose: 1 tab Pharmacy Profile Note (Nicotine Patch Removal Note*) 1 note PATCH OFF 2100 [facility] Last Admin: 10/28/19 21:46 Dose: 1 note Prednisone (Deltasone Tab*) 40 mg PO DAILY [facility] Last Admin: 10/29/19 10:40 Dose: 40 mg Primidone (Mysoline Tab(*)) 250 mg PO BID [facility] Last Admin: 10/29/19 10:41 Dose: 250 mg Tiotropium [place] (Spiriva Respimat 2.5 Mcg) 2 puff INH DAILY [facility] Last Admin: 10/29/19 09:34 Dose: 2 puff Vital Signs - 8 hr 10/29/19 10/29/19 10/29/19 07:15 08:00 08:20 Temperature 98.4 F Pulse Rate 84 Respiratory 17 17 18 Rate Blood Pressure 167/70 (mmHg) O2 Sat by Pulse 97 Oximetry 10/29/19 10/29/19 10/29/19 09:50 10:55 11:11 Temperature 97.9 F Pulse Rate 83 89 Respiratory 15 17 18 Rate Blood Pressure 164/68 (mmHg) O2 Sat by Pulse 98 96 Oximetry Oxygen Devices in Use Now: Nasal Cannula Appearance: appears comfortable resting in bed, no acutre distress Eyes: No Scleral Icterus Ears/Nose/Mouth/Throat: Clear Oropharnyx, Mucous Membranes Moist Neck: NL Appearance and Movements; NL JVP, Trachea Midline Respiratory: Symmetrical Chest Expansion and Respiratory Effort, - - exp wheezes t/o bilat with scattered rhonchi Cardiovascular: NL Sounds; No Murmurs; No JVD, No Edema Extremities: No Edema, No Clubbing, Cyanosis Skin: No Rash or Ulcers Neurological: Alert and Oriented x 3 Nutrition: Taking PO's Result Diagrams: 10/28/19 08:33 10/26/19 14:54 Microbiology and Other Data: Microbiology 10/26/19 14:55 Aerobic Blood Culture - Preliminary Blood Venous No Growth Day 1 Anaerobic Blood Culture - Preliminary No Growth Day 1 10/26/19 14:55 Aerobic Blood Culture - Preliminary Blood Venous No Growth Day 1 Anaerobic Blood Culture - Preliminary No Growth Day 1 Assess/Plan/Problems-Billing Assessment: Ms. Augustin is a 74 yo F with PMH of primary lateral sclerosis with functional quadriplegia, chronic spasms with implanted baclofen pump, COPD on 2L at HS; who presented to the ED with c/o SOB and was found to have a COPD exacerbation with questionable pneumonia. - Patient Problems (1) Community acquired pneumonia Current Visit: Yes Status: Acute Code(s): J18.9 - PNEUMONIA, UNSPECIFIED ORGANISM SNOMED Code(s): 448237549 Comment: - Still with rhonchi and wheezing on exam - CT chest showing right basilar infiltrate concerned for pneumonia - Continue ceftriaxone (day 3/7), azithromycin (day 3/5) (2) Elevated troponin Current Visit: Yes Status: Acute Code(s): R79.89 - OTHER SPECIFIED ABNORMAL FINDINGS OF BLOOD CHEMISTRY SNOMED Code(s): 063688320 Comment: - Chronically elevated - No EKG changes or CP - Suspect secondary to demand from sepsis (3) Sepsis Current Visit: Yes Status: Acute Comment: - Met criteria on admission with leukocytosis and tachycardia - Source is pneumonia - Plan as above (4) Thrombocytosis Current Visit: Yes Status: Acute Comment: - Platelets elevated during previous admissions - Suspect reactive, secondary to pneumonia (5) COPD exacerbation Current Visit: No Status: Acute Code(s): J44.1 - CHRONIC OBSTRUCTIVE PULMONARY DISEASE W (ACUTE) EXACERBATION SNOMED Code(s): 788390986 Comment: - Baseline oxygen requirement is 2L at HS - Secondary to pneumonia - Previously on prednisone taper prior to admission - Continue Dulera, Incruse Ellipta, nebs; change from Solu-Medrol to prednisone tomorrow (6) Hyperlipidemia Current Visit: No Status: Acute Code(s): E78.5 - HYPERLIPIDEMIA, UNSPECIFIED SNOMED Code(s): 95278476 Comment: - Continue atorvastatin (7) Hypertension Current Visit: No Status: Acute Code(s): I10 - ESSENTIAL (PRIMARY) HYPERTENSION SNOMED Code(s): 92028638 Comment: - Slightly hypertensive - Continue amlodipine, losartan (8) Primary lateral sclerosis Current Visit: No Status: Chronic Code(s): G12.23 - PRIMARY LATERAL SCLEROSIS SNOMED Code(s): 37159838 Comment: - With functional quadriplegia - Implanted baclofen pump - Continue primidone (9) DVT prophylaxis Current Visit: No Status: Acute Code(s): Z29.9 - ENCOUNTER FOR PROPHYLACTIC MEASURES, UNSPECIFIED SNOMED Code(s): 551380826 Comment: - Heparin SQ (10) DNR (do not resuscitate) Current Visit: No Status: Acute Comment: Status and Disposition: Inpatient. Anticipate d/c home when medically stable
[2019-10-29] MEDS: cefTRIAXone(*) 1 GM in NS 0.9% 50 ML* 50 ML IVPB SCH (14:22)
[2019-10-29] MEDS: amLODIPine TAB* 5 MG PO SCH (17:38)
[2019-10-29] MEDS: Atorvastatin* 20 MG TAB PO SCH (17:38)
[2019-10-29] MEDS: Mirtazapine TAB* 15 MG PO SCH (21:12)
[2019-10-29] MEDS: Nicotine Patch Removal NOTE PATCH OFF SCH (21:14)
[2019-10-30] MEDS: Albuterol/Ipratropium NEB.SOL* Albuterol 2.5 MG/Ipratropium 0.5 MG 3 ML INH SCH ×4 (03:06→12:47)
[2019-10-30] MEDS: Heparin VIAL(*) 5000 UNITS/ML VIAL (FIVE THOUSAND) SUBCUT SCH (05:26)
[2019-10-30] MEDS: Aspirin EC TAB* 81 MG TAB.EC PO SCH (09:08)
[2019-10-30] MEDS: Losartan TAB* 25 MG PO SCH (09:09)
[2019-10-30] MEDS: FLUoxetine CAP* 20 MG PO SCH (09:09)
[2019-10-30] MEDS: Azithromycin TAB* 250 MG PO SCH (09:10)
[2019-10-30] MEDS: Primidone TAB(*) 250 MG PO SCH (09:10)
[2019-10-30] MEDS: predniSONE TAB* 20 MG PO SCH (09:10)
[2019-10-30] MEDS: Nicotine PATCH 21 MG/24 HR* PATCH TRANSDERM SCH (09:13)
[2019-10-30] MEDS: oxyCODONE/Acetamin 5/325 MG* TAB PO PRN ×2 (09:13→14:13)
[2019-10-30] MEDS: Mometasone/Formoter 200/5 MDI INH SCH (09:17)
[2019-10-30] MEDS: SPIRIVA Respimat* (tiotropium) 2.5 mcg/inh Inhaler INH SCH (11:12)
--- NOTE | 2019-10-30 13:08 | PN ---
Progress Note - Progress Note Date of Service: 10/30/19 Note: S: Pt seen at bedside, states the lateral aspect of the splint feels it is rubbing but otherwise no complaints. Denies any numbness or tingling of LLE. She has lateral sclerosis and clonus when the ankle is at 90 degrees. Previous splint placed without evidence of clonus at time of placement but it seems she needs to be splinted in slight plantarflexion to avoid this. O: Gen: NAD appears well LLE: splint removed, no evidence of skin breakdown. Clonus with dorsiflexion. New well padded lower leg splint placed, ankle in slight plantarflexion to avoid inducing clonus. NVI distally and confirms splint comfort after placement. A: L ankle fracture P: NWB LLE Keep splint CDI until follow up within 1 week Call ortho office sooner with any concerns Diagnostic studies: CT Left Lower Extremity Without Contrast IMPRESSION: 1. There are acute appearing nondisplaced comminuted fractures of the lateral malleolus and acute mildly displaced fracture involving the medial malleolus. 2. There is soft tissue swelling and likely bruising over the medial and lateral aspect of the ankle and dorsal aspect of the midfoot and forefoot. Vital Signs Temp 97.5 F 10/30/19 07:15 Pulse 80 10/30/19 07:15 Resp 18 10/30/19 11:14 BP 147/67 10/30/19 07:15 Pulse Ox 97 10/30/19 07:15 Intake & Output 10/29/19 10/30/19 10/30/19 18:59 06:59 18:59 Intake Total 480 1 120 Balance 480 1 120 Intake: Oral 480 1 120 Other: Estimated Void Medium Estimated Stool Amount Small # Voids 1 Laboratory Last Values WBC 11.2 10^3/uL (3.5-10.8) H 10/28/19 08:33 RBC 3.99 10^6 /uL (3.70-4.87) 10/28/19 08:33 Hgb 11.8 g/dL (12.0-16.0) L 10/28/19 08:33 Hct 36 % (35-47) 10/28/19 08:33 MCV 89 fL (80-97) 10/28/19 08:33 MCH 30 pg (27-31) 10/28/19 08:33 MCHC 33 g/dL (31-36) 10/28/19 08:33 RDW 16 % (10-15) H 10/28/19 08:33 Plt Count 496 10^3/uL (150-450) H 10/28/19 08:33 MPV 7.0 fL (7.4-10.4) L 10/28/19 08:33 Neut % (Auto) 74.3 % 10/28/19 08:33 Lymph % (Auto) 17.9 % 10/28/19 08:33 Starr % (Auto) 6.0 % 10/28/19 08:33 Eos % (Auto) 1.0 % 10/28/19 08:33 Baso % (Auto) 0.8 % 10/28/19 08:33 Absolute Neuts (auto) 8.3 10^3/ul (1.5-7.7) H 10/28/19 08:33 Absolute Lymphs (auto) 2.0 10^3/ul (1.0-4.8) 10/28/19 08:33 Absolute Monos (auto) 0.7 10^3/ul (0-0.8) 10/28/19 08:33 Absolute Eos (auto) 0.1 10^3/ul (0-0.6) 10/28/19 08:33 Absolute Basos (auto) 0.1 10^3/ul (0-0.2) 10/28/19 08:33 Absolute Nucleated RBC 0.0 10^3/ul 10/28/19 08:33 Nucleated RBC % 0.0 10/28/19 08:33 INR (Anticoag Therapy) 0.98 (0.82-1.09) 10/26/19 14:54 APTT 32.9 seconds (26.0-38.0) 10/26/19 14:54 Patient Temperature Not Reportable 10/26/19 14:09 ABG pH 7.43 (7.35-7.45) 10/26/19 14:09 ABG pH (Temp Correct) Not Reportable 10/26/19 14:09 ABG pCO2 36 mmHg (35-45) 10/26/19 14:09 ABG pCO2 (Temp Corrct Not Reportable 10/26/19 14:09 ABG pO2 110 mmHg (80-100) H 10/26/19 14:09 ABG pO2 (Temp Correct Not Reportable 10/26/19 14:09 ABG HCO3 24.8 mmol/L (19-31) 10/26/19 14:09 ABG O2 Saturation 99.5 % (94.0-98.0) H 10/26/19 14:09 ABG Base Excess -0.1 mmol/L (-2.0-2.0) 10/26/19 14:09 Respiration Rate Not Reportable 10/26/19 14:09 O2 Delivery Device 4lpm nc 10/26/19 14:09 Ventilator Type Not Reportable 10/26/19 14:09 Vent Mode Not Reportable 10/26/19 14:09 FiO2 Not Reportable 10/26/19 14:09 Inspiratory Time Not Reportable 10/26/19 14:09 PEEP Not Reportable 10/26/19 14:09 Pressure Support Not Reportable 10/26/19 14:09 Pressure Control Not Reportable 10/26/19 14:09 EPAP Not Reportable 10/26/19 14:09 IPAP Not Reportable 10/26/19 14:09 BiPAP Not Reportable 10/26/19 14:09 Sodium 138 mmol/L (135-145) 10/26/19 14:54 Potassium 4.3 mmol/L (3.5-5.0) 10/26/19 14:54 Chloride 104 mmol/L (101-111) 10/26/19 14:54 Carbon Dioxide 24 mmol/L (22-32) 10/26/19 14:54 Anion Gap 10 mmol/L (2-11) 10/26/19 14:54 BUN 13 mg/dL (6-24) 10/26/19 14:54 Creatinine 0.90 mg/dL (0.51-0.95) 10/26/19 14:54 Est GFR ( Amer) 74.1 (>60) 10/26/19 14:54 Est GFR (Non-Af Amer) 61.2 (>60) 10/26/19 14:54 BUN/Creatinine Ratio 14.4 (8-20) 10/26/19 14:54 Glucose 134 mg/dL (70-100) H 10/26/19 14:54 Lactic Acid 1.7 mmol/L (0.5-2.0) 10/26/19 14:54 Calcium 9.5 mg/dL (8.6-10.3) 10/26/19 14:54 Total Bilirubin 0.30 mg/dL (0.2-1.0) 10/26/19 14:54 AST 18 U/L (13-39) 10/26/19 14:54 ALT 19 U/L (7-52) 10/26/19 14:54 Alkaline Phosphatase 86 U/L (34-104) 10/26/19 14:54 Total Creatine Kinase 118 U/L (10-223) 10/26/19 14:54 CK-MB (CK-2) 3.1 ng/mL (0.6-6.3) 10/26/19 14:54 Troponin I 0.05 ng/mL (<0.03) H* 10/26/19 22:31 C-Reactive Protein 59.34 mg/L (<8.01) H 10/26/19 14:54 B-Natriuretic Peptide 59 pg/mL (<=100) 10/26/19 14:54 Total Protein 7.3 g/dL (6.4-8.9) 10/26/19 14:54 Albumin 3.8 g/dL (3.2-5.2) 10/26/19 14:54 Globulin 3.5 g/dL (2-4) 10/26/19 14:54 Albumin/Globulin Ratio 1.1 (1-3) 10/26/19 14:54 Urine Color Yellow 10/27/19 12:15 Urine Appearance Clear 10/27/19 12:15 Urine pH 6.0 (5-9) 10/27/19 12:15 Ur Specific [place] 1.021 (1.010-1.030) 10/27/19 12:15 Urine Protein Negative (Negative) 10/27/19 12:15 Urine Ketones Negative (Negative) 10/27/19 12:15 Urine Blood Negative (Negative) 10/27/19 12:15 Urine Nitrate Negative (Negative) 10/27/19 12:15 Urine Bilirubin Negative (Negative) 10/27/19 12:15 Urine Urobilinogen Negative (Negative) 10/27/19 12:15 Ur Leukocyte Esterase Negative (Negative) 10/27/19 12:15 Urine Glucose Negative (Negative) 10/27/19 12:15
[2019-10-30 13:25] VITALS: BP 142/90
--- NOTE | 2019-11-01 22:49 | DS ---
DISCHARGE SUMMARY: DATE OF ADMISSION: 10/26/19 DATE OF DISCHARGE: 10/30/19 PROVIDER: Ralf Vasquez NP PRIMARY CARE PROVIDER: Dr. Winston. ATTENDING PHYSICIAN WHILE IN THE HOSPITAL: Dr. Elvis Perez * (dictated by Ralf Vasquez NP). PRIMARY DIAGNOSES: 1. Left ankle fracture. 2. Community-acquired pneumonia. 3. Elevated troponin. 4. Sepsis related to pneumonia. 5. Thrombocytosis. 6. Mild chronic obstructive pulmonary disease exacerbation. SECONDARY DIAGNOSES: 1. Primary lateral sclerosis with functional quadriplegia. 2. Arthritis. 3. Chronic muscle spasms with baclofen pump. 4. Left kidney cancer, status post nephrectomy. 5. Colon cancer, status post surgery. 6. Chronic urinary incontinence. STUDIES COMPLETED WHILE IN THE HOSPITAL: She had a chest x-ray on 10/26/19, radiologist's impression: Hyperinflated lungs with no focal airspace opacification. She had a CT of the chest and thorax on 10/26/19, radiologist's impression: No evidence of PE, mild right basilar infiltrate, may suggest developing pneumonia , moderate emphysematous changes. She had an electrocardiogram on 10/26/19, which showed sinus tachycardia at a rate of 101. She had a venous Doppler. The peroneal veins are not well visualized within the constraints. There is no evidence of deep vein thrombosis in the leg. She had a left ankle x-ray. No definite acute or subacute fracture is evident. If there is persistent clinical concern, CT or MRI to further assess. She had a CT of the lower extremity on 10/28/19, radiologist's impression: There is an acute appearing nondisplaced comminuted fracture of the lateral malleolus, acute mildly displaced fracture involving the medial malleolus. There is soft tissue swelling likely bruising over the medial and lateral aspect of the ankle and dorsal aspect of the mid foot and forefoot. DISCHARGE MEDICATIONS: New home medications: 1. Azithromycin 250 mg p.o. daily x2 more doses. 2. Vantin 200 mg p.o. twice daily x4 more days. 3. Ibuprofen 400 mg every 8 hours as needed for nviudpls-sk-kxymxy pain. 4. Pantoprazole 40 mg p.o. daily. 5. Prednisone 40 mg p.o. daily for 3 days, then 30 mg p.o. daily for 3 days, then 20 mg p.o. daily for 3 days, and then 1 tablet p.o. daily until followup with the primary care provider. 6. DuoNeb 1 neb every 6 hours as needed for shortness of breath and wheezing. HISTORY OF PRESENT ILLNESS AND HOSPITAL COURSE: Ms. Augustin is a 74-year-old female with past medical history of lateral sclerosis, who is wheelchair bound. She has a long-term history of pack-a-day smoking associated with COPD. During her last admission on 09/22/19, the patient had a mildly elevated troponin, which was attributed to demand ischemia. She did have a stress test that was negative and echocardiogram that showed no wall motion or valvular abnormalities. Prior to her admission, the patient started feeling unwell the night before her admission with complaints of shortness of breath. She does report that a few days ago, she fell and broke her ankle and was assessed at one of her local urgent care facilities with followup with Dr. Mitchell next Sunday. The patient again states that she was short of breath prior to her admission and that she also had some diarrhea x1 week, so she presented to the emergency room for further evaluation. The patient reports at baseline, she wears 2 L nasal cannula at night only. When she was evaluated in the emergency room, the patient was initially requiring 4 L of oxygen to maintain O2 saturations of 90%. She had mild leukocytosis with white count of 13,000, but it was noted that she was started on prednisone on 10/24/19. She did have a mildly elevated troponin of 0.05 and elevated CRP of 59.34. The chest x-ray showed no acute intrathoracic process. The CT of the chest did show concern for developing pneumonia. Due to these findings and the patient's hypoxic respiratory failure, Hospital Medicine admitted the patient for further observation and treatment. During the hospitalization, the patient was placed on ceftriaxone and azithromycin to treat community-acquired pneumonia. She was placed on prednisone for mild COPD exacerbation. Throughout her hospitalization, the patients' condition did improve. The patient was also noted to have a left ankle fracture. She did have a CT of the lower extremity. She was seen by Orthopedics. Please refer to the orthopedic consultation for complete details. In brief, the patient does have a left ankle malleolus fracture and was placed in a splint. She is to follow up with Dr. Hays next week for further care of her left ankle fracture. On the day of discharge, the patient does remain mildly short of breath but does state per restorative care technician and the patient states this is her baseline. I did speak to her primary care provider, Dr. Winston, who also agreed that the patient has poor respiratory status at baseline. At this time, the patient wishes to be discharged home. The patient will be discharged home. REVIEW OF SYSTEMS: The patient denies any fever, chills. Denies any chest pain. She denies worsening shortness of breath. She does report her breathing is at baseline. She denies any abdominal pain, nausea, vomiting, or diarrhea. Denies any urinary frequency. Denies any urine urgency or pain with urination. She denies any dizziness. PHYSICAL EXAMINATION: General: At this time, Ms. Augustin is a 74-year-old female. She appears frail. She does appear mild to moderately short of breath, resting in bed. She is on O2 2 L nasal cannula. She does have a moist cough. Vital Signs: Blood pressure 142/90, heart rate 68, respirations are 18, O2 saturation 98% on 2 L nasal cannula, temperature was 98.1. HEENT: Head is atraumatic, normocephalic. Eyes: EOMs are intact. Sclerae anicteric and not pale. Oral mucosa appeared to be moist. Neck is supple. Lungs are diminished throughout bilaterally with few scattered rhonchi and expiratory wheezes. Abdomen is soft and nontender. Bowel sounds are present x4. Extremities: Pedal pulses are +2 bilaterally. She does have sensation in her left foot and it is warm to touch. She is able to wiggle her toes without difficulty. Neurologic: She is awake, alert, and oriented x3. Speech is clear. Thought process is intact. There are no gross focal deficits. She does have a splint intact to her left lower leg. At this time, Ms. Augustin is stable for discharge home. DISCHARGE PLAN: Ms. Augustin will be discharged home. She is nonweightbearing to her left lower leg. 1. Community-acquired pneumonia. The patient will complete a 5-day course of azithromycin. She will need 2 more doses of 250 mg. She will complete a 7-day course of cephalosporin. She will be placed on Vantin 200 mg p.o. b.i.d. for 4 more days. The patient should continue home nebulizers and prednisone taper as prescribed. She should also continue on her home inhalers. I have recommended that the patient stop smoking as the continued inflow to her lungs is contributing to her poor respiratory function. 2. Left ankle fracture. The patient does have a malleolus fracture to the left ankle. She was seen in consultation by Dr. Hays. Please see dictated consult from Orthopedics for complete details. The patient does have a splint in place to her left lower extremity. She is to follow up with Dr. Hays in 1 week. She is to be nonweightbearing to her left lower extremity. This was explained to the patient and her restorative care technician, who verbalized understanding. The patient was able to transfer with PT with nonweightbearing to her left lower extremity to her wheelchair as the patient is mostly wheelchair bound and pivot only for mobility at baseline. The patient could have ibuprofen 400 mg p.o. q.8 hours as needed for [id number] pain. She will also be placed on Protonix p.o. daily to help prevent gastric ulceration from the prednisone and ibuprofen. 3. COPD exacerbation. The patient does have a mild COPD exacerbation likely related to her underlying pneumonia. She should continue her inhalers and nebulizers as prescribed. She should continue her prednisone taper as 40 mg for 3 days, 30 mg for 3 days, 20 mg for 3 days, and then 10 mg until followup with her primary care provider for further recommendations on prednisone dosing. 4. For all other chronic medical conditions, the patient should continue previous home medications as previously prescribed. 5. The patient should follow up with primary care provider in 4 to 7 days. I have spoken to Dr. Winston who will follow up the patient early next week and make further recommendations. I have discussed my discharge plan with Dr. Winston, who is in agreement with the plan. The patient should follow up with Dr. Hays in 1 week. She will need to call the office for an appointment. The patient should return to the emergency room for any increased pain, swelling , coolness to her lower extremity, or severe pain. The patient should also return to the emergency room for severe shortness of breath, chest pain, fever, chills, or any other concerns. I have discussed this with my attending, Dr. Elvis Perez; he is in agreement with my plan. RALF VASQUEZ, LEAFLET DISTRIBUTOR [id number]/[facility] #: [id number] [facility]
== END 2019-10-30 14:10 | disposition home health service (06) | DRG 871 ==
LOC: ED 13:51 → MED 19:35 → OBSVTOIN 10-27 12:43
PROVIDERS: ADMIT Nurse Practitioner Acute Care; ATTEND Internal Medicine
DX: A41.9 Sepsis, unspecified organism (principal); J18.9 Pneumonia, unspecified organism; R53.2 Functional quadriplegia; J96.91 Respiratory failure, unspecified with hypoxia; J44.0 Chronic obstructive pulmonary disease with (acute) lower respiratory infection; G12.21 Amyotrophic lateral sclerosis; J44.1 Chronic obstructive pulmonary disease with (acute) exacerbation; R32 Unspecified urinary incontinence; E78.5 Hyperlipidemia, unspecified; Z66 Do not resuscitate; D47.3 Essential (hemorrhagic) thrombocythemia; R79.89 Other specified abnormal findings of blood chemistry; M62.838 Other muscle spasm; S82.52XA Displaced fracture of medial malleolus of left tibia, initial encounter for closed fracture; S82.65XA Nondisplaced fracture of lateral malleolus of left fibula, initial encounter for closed fracture; W19.XXXA Unspecified fall, initial encounter; M19.90 Unspecified osteoarthritis, unspecified site; F17.210 Nicotine dependence, cigarettes, uncomplicated; F41.9 Anxiety disorder, unspecified; R19.7 Diarrhea, unspecified; I25.10 Atherosclerotic heart disease of native coronary artery without angina pectoris; E78.00 Pure hypercholesterolemia, unspecified; I10 Essential (primary) hypertension; F32.9 Major depressive disorder, single episode, unspecified; Z90.5 Acquired absence of kidney; Z88.5 Allergy status to narcotic agent; Z95.5 Presence of coronary angioplasty implant and graft; Z85.3 Personal history of malignant neoplasm of breast; Z85.828 Personal history of other malignant neoplasm of skin; Z85.038 Personal history of other malignant neoplasm of large intestine; Z92.3 Personal history of irradiation; Z99.3 Dependence on wheelchair; Y92.9 Unspecified place or not applicable; Z85.528 Personal history of other malignant neoplasm of kidney; Z79.52 Long term (current) use of systemic steroids; Z79.899 Other long term (current) drug therapy
CPT/HCPCS: 36415; 71046; 71275; 80053; 81003; 82550; 82553; 82803; 83605; 83880; 84484; 85025; 85610; 85730; 86140; 87040; 93005; 93970; 94640; 96365; 99284; A9270-GY; G0378; G8978-GP-CM; G8979-GP-CL; G8987-GO-CL; G8988-GO-CK; J0696; J1644; J2920; J2930; J3535; J7512; Q9967

== ENCOUNTER 2019-12-01 08:02 | Observation (INO) | payer MEDICARE, OTHER ==
[2019-12-01] MEDS ORDERED: Albuterol/Ipratropium NEB.SOL* Albuterol 2.5 MG/Ipratropium 0.5 MG 3 ML INH ONE (08:07)
[2019-12-01] MEDS ORDERED: NS 0.9% 1000 ML** 1,000 ML IV ONE (08:09)
[2019-12-01] MEDS ORDERED: methylPREDNISolone 125 MG* 2 ML VIAL IV ONE (08:09)
[2019-12-01] MEDS ORDERED: Cefepime(*) 1 GM in NS 0.9% 50 ML* 50 ML IVPB ONE (08:10)
--- NOTE | 2019-12-01 08:11 | ED ---
Shortness of Breath - HPI Summary HPI Summary: Patient is a 74 y/o F presenting to the ED via EMS for a chief complaint of shortness of breath that began the morning of 12/01/19. Per EMS, patient was seen by Dr. Winston, the patient's PCP, on a home visit when Dr. Winston noticed the patient was in respiratory distress and called EMS. On EMS arrival, patient was placed on 4L of oxygen by nasal cannula with improvement in her symptoms. Her oxygen saturation was initially 88% on room air, she was hypertensive at 186 /81, and she had inspiratory and expiratory wheezing when assessed by EMS. Patient notes improvement in her shortness of breath with the breathing treatment. Patient complains of cough with yellow phlegm. She denies myalgia, chest pain, or fever. Recently, the patient was diagnosed with pneumonia and placed on a course of antibiotics. She uses oxygen as needed at night. PMHx is significant for COPD and lateral sclerosis. Patient admits tobacco use, last used on 11/30/19. She uses a wheelchair. Allergy to codeine is noted. Medications reviewed. - History of Current Complaint Chief Complaint: EDRespiratoryDistress Hx Obtained From: Patient, EMS Onset/Duration: Sudden Onset, Still Present Timing: Constant Current Severity: Moderate Dyspnea At: Rest Aggravating Factors: Nothing Alleviating Factors: Oxygen Associated Signs & Symptoms: Cough (Productive) - With yellow phlegm, Wheezing - Allergy/Home Medications Allergies/Adverse Reactions: Allergies Allergy/AdvReac Type Severity Reaction Status Date / Time codeine Allergy Nausea Verified 11/12/19 13:08 Home Medications: Home Medications Albuterol HFA INHALER* [Ventolin HFA Inhaler*] 1 - 2 puff INH Q4H PRN 12/01/19 [ History Confirmed 12/01/19] Amoxicillin/Clavulanate TAB* [Augmentin TAB 875*] 875 mg PO BID 12/01/19 [ History Confirmed 12/01/19] Dextromethorphan HBr [Tussin Cough] 20 mg PO QAM PRN 12/01/19 [History Confirmed 12/01/19] Dextromethorphan HBr [Tussin Cough] 30 mg PO QPM PRN 12/01/19 [History Confirmed 12/01/19] Omeprazole CAP (NF) [Prilosec CAP* 20 MG] 20 mg PO DAILY 12/01/19 [History Confirmed 12/01/19] Polyethylene Glycol 3350* [Miralax*] 8.5 gm PO DAILY 12/01/19 [History Confirmed 12/01/19] Tolterodine LA (NF) [Detrol LA (NF)] 4 mg PO DAILY 12/01/19 [History Confirmed 12/01/19] PMH/Surg Hx/FS Hx/Imm Hx Previously Healthy: Yes Endocrine/Hematology History: Denies: Hx Anticoagulant Therapy, Hx Blood Disorders, Hx Blood Transfusions, Hx Bone Marrow Disease, Hx Diabetes, Hx Systemic Lupus Erythematosus, Hx Sickle Cell Disease, Hx Thyroid Disease, Hx Anemia, Other Endocrine/Hematological Disorders Cardiovascular History: Reports: Hx Coronary Artery Disease, Hx Hypercholesterolemia, Hx Hypertension, Other Cardiovascular Problems/Disorders - heart cath and stent Denies: Hx Aneurysm, Hx Angina, Hx Angioplasty, Hx Auto Implanted Cardiovert Defib, Hx Cardiac Arrest, Hx Cardiomegaly, Hx Congenital Heart Disease, Hx Congestive Heart Failure, Hx Deep Vein Thrombosis, Hx Embolism Respiratory History: Reports: Hx Asthma, Hx Chronic Obstructive Pulmonary Disease (COPD) Denies: Hx Bronchopulmonary Dysplasia, Hx Chronic Bronchitis, Hx Cystic Fibrosis, Hx Lung Cancer, Hx Pleural Effusion, Hx Pneumonia, Hx Pulmonary Edema , Hx Pulmonary Embolism, Hx Seasonal Allergies, Hx Sleep Apnea, Other Respiratory Problems/Disorders GI History: Reports: Other GI Disorders - hx colon cancer with resection Denies: Hx Cirrhosis, Hx Crohn's Disease, Hx Diverticulosis, Hx Gall Bladder Disease, Hx Gastroesophageal Reflux Disease, Hx Gastrointestinal Bleed, Hx Hiatal Hernia, Hx Irritable Bowel, Hx Jaundice, Hx Obstructive Bowel, Hx Ileostomy, Hx Pyloric Stenosis, Hx Ulcer History: Reports: Other Problems/Disorders - kidney cancer- left kidney removed Denies: Hx Acute Renal Failure, Hx Benign Prostatic Hyperplasia, Hx Chronic Renal Failure, Hx Dialysis, Hx Kidney Infection, Hx Kidney Stones Musculoskeletal History: Reports: Hx Arthritis, Hx Back Problems, Other Musculoskeletal History - implanted baclofen pump for pain, LLQ Sensory History: Reports: Hx Cataracts - both eyes, Hx Auditory Problems - Hard of hearing Denies: Hx Contacts or Glasses, Hx Eye Injury, Hx Eye Prosthesis, Hx Glaucoma , Hx Legally Blind, Hx Macular Degeneration, Hx Vision Problem, Hx Deafness, Hx Hearing Aid, Hx Hearing Problem, Other Sensory Impairments Opthamlomology History: Reports: Hx Cataracts - both eyes Denies: Hx Contacts or Glasses, Hx Eye Injury, Hx Eye Prosthesis, Hx Glaucoma , Hx Legally Blind, Hx Macular Degeneration, Hx Vision Problem, Other Sensory Impairments EENT History: Reports: Hx Auditory Problems - Hard of hearing Denies: Hx Deafness Neurological History: Reports: Other Neuro Impairments/Disorders - lateral sclerosis Denies: Hx Dementia, Hx Developmental Delay, Hx Headaches, Hx Migraine, Hx Nerve Disease, Hx Seizures, Hx Spinal Cord Injury, Hx Transient Ischemic Attacks (TIA) Psychiatric History: Reports: Hx Anxiety, Hx Depression Denies: Hx Attention Deficit Hyperactivity Disorder, Hx Autism, Hx Eating Disorder, Hx Oppositional [place] Disorder, Hx Panic Disorder, Hx Post Traumatic Stress Disorder, Hx Inpatient Treatment, Hx Community Mental Health Tx , Hx Schizophrenia, Hx Bipolar Disorder, Hx Suicide Attempt, Hx of Violent Episodes Against Others, Other Psychiatric Issues/Disorders - Cancer History Cancer Type, Location and Year: colon CA. right breast CA. skin CA Hx Radiation Therapy: Yes - Surgical History Surgical History: Yes Surgery Procedure, Year, and Place: Partial Hysterectomy-still has uterus 1996, Disc Surgery-lower spine 1980, Cyst removal-rectum 1981, Baclofen pump implant 1996, Carpal tunnel 1996, Bladder repair 1998, Carpal tunnel and ulnar nerve in arm 1998, Baclofen pump replacement 2001, Cataract - left eye 2003, Colon resection for cancer 2006, Cataract - right eye 2007, Lumpectomy - right breast for CA 2010, Heart catheterization and stent impant 2010, Baclofen pump replacement 2013, Left kidney removal for cancer, Left Arm Ulnar Nerve 2014, Skin Cancer - Radiation treatment 2017. Hx Anesthesia Reactions: No Infectious Disease History: No Infectious Disease History: Denies: Hx Clostridium Difficile, Hx Hepatitis, Hx Human Immunodeficiency Virus (HIV), Hx of Known/Suspected MRSA, Hx Shingles, Hx Tuberculosis, Hx Known/ Suspected VRE, Hx Known/Suspected VRSA, History Other Infectious Disease, Traveled Outside the [place] in Last 30 Days - Family History Known Family History: Positive: Other - positive: father committed suicide, father had CA - Social History Occupation: Retired Alcohol Use: None Hx Substance Use: No Substance Use Type: Reports: None Hx Tobacco Use: Yes Smoking Status (MU): Current Every Day Smoker Type: Cigarettes Amount Used/How Often: 1 PPD Have You Smoked in the Last Year: Yes Review of Systems Negative: Fever Negative: Chest Pain Positive: Shortness Of Breath, Cough - Productive with yellow phlegm, Other - Positive wheezing Negative: Myalgia All Other Systems Reviewed And Are Negative: Yes Physical Exam - Summary Physical Exam Summary: Constitutional: Well-developed, Well-nourished, Alert. (-) Distressed. Skin: Warm, Dry HENT: Normocephalic; Atraumatic Eyes: Conjunctiva normal Neck: Musculoskeletal ROM normal neck. (-) JVD, (-) Stridor, (-) Tracheal deviation Cardio: Rhythm regular, rate normal, Heart sounds normal; Intact distal pulses; Radial pulses are 2+ and symmetric. (-) Murmur Pulmonary/Chest wall: (-) Respiratory distress, (-) Wheezes, (-) Rales. Tachypneic. Speaking in short sentences with retractions, wheezing in the bilateral lung benitez with mild decreased air sounds bilaterally. Abd: Soft, (-) tenderness, (-) Distension, (-) Guarding, (-) Rebound Musculoskeletal: (-) Edema Lymph: (-) Cervical adenopathy Neuro: Alert, Oriented x3 Psych: Mood and affect Normal Triage Information Reviewed: Yes Vital Signs On Initial Exam: Initial Vitals Temp Pulse Resp BP Pulse Ox 100.6 F 110 28 140/74 94 12/01/19 08:03 12/01/19 08:03 12/01/19 08:03 12/01/19 08:03 12/01/19 08:03 Vital Signs Reviewed: Yes Procedures - Sedation Patient Received Moderate/Deep Sedation with Procedure: No Diagnostics - Vital Signs Vital Signs Temp Pulse Resp BP Pulse Ox 12/01/19 08:03 100.6 F 110 28 140/74 94 - Laboratory Result Diagrams: 12/01/19 08:15 12/01/19 08:15 Lab Statement: Any lab studies that have been ordered have been reviewed, and results considered in the medical decision making process. - Radiology Chest X-ray Radiology Interpretation Completed By: Radiologist Summary of Radiographic Findings: Chest X-ray IMPRESSION: ELEVATED RIGHT HEMIDIAPHRAGM WITH NO DEFINITE PNEUMONIA. Reviewed by Dr. Montez. - CT Chest/Thorax CTA CT Interpretation Completed By: Radiologist Summary of CT Findings: Chest/Thorax CTA IMPRESSION: #. Limited CT pulmonary angiogram is noted without compelling evidence for pulmonary embolism. #. Stigmata of COPD. Mild bibasilar atelectasis. Reviewed by Dr. Montez. - EKG 08:09 Cardiac Rate: Tachycardia - 103 BPM EKG Rhythm: Sinus Tachycardia ST Segment: Normal Ectopy: None Summary of EKG Findings: EKG at 08:09 shows sinus tachycardia with 103 BPM, no obvious ischemic changes, no STEMI. Reviewed and interpreted by Dr. Montez. Re-Evaluation - Re-Evaluation First Eval Re-Evaluation Time: 08:35 Change: Improved Comment: At 08:35, patient is feeling better after a duoneb. Patient was offered an additional duoneb treatment, but declined. Course/Dx - Course Course Of Treatment: Patient is here with worsening shortness of breath in the setting of COPD. Patient has not distress upon arrival given a DuoNeb with improvement in her symptoms. Patient had a chest x-ray which showed no abnormality. The patient's notes and hypoxemia and shortest breath, a CT was performed which showed no PE or pneumonia. Patient was positive and given Tamiflu. Patient was treated empirically with cefepime and she had a prior sputum culture that grew Pseudomonas. Patient was admitted to the hospitalist. - Diagnoses Provider Diagnoses: COPD exacerbation, Respiratory distress, Influenza - Physician Notifications Discussed Care of Patient With: Misti Prather - At 10:41, Dr. Misti Prather agrees to admit the patient to [facility] with a diagnosis of COPD exacerbation, respiratory distress, and influenza. Time Discussed With Above Provider: 10:41 Instructed by Provider To: Admit As Inpatient Discharge ED - Sign-Out/Discharge Documenting (check all that apply): Patient Departure - Admit - Discharge Plan Condition: Stable Disposition: ADMITTED TO [facility] - Billing Disposition and Condition Condition: STABLE Disposition: Admitted to [facility] - Attestation Statements Document Initiated by Tobyibe: Yes Documenting Scribe: Joycelyn Du Provider For Whom Tobyibtoma is Documenting (Include Credential): Wolfgang Montez MD Scribe Attestation: Joycelyn Gauthier, brianaed for Wolfgang Montez MD on 12/01/19 at 1423. Scribe Documentation Reviewed: Yes Provider Attestation: The documentation as recorded by the Joycelyn ochoa accurately reflects the service I personally performed and the decisions made by , Wolfgang Montez MD Status of Scribe Document: Viewed
--- OUTSIDE RECORDS SUMMARY | 2019-12-01 08:12 | XMS REPORT ---
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-26 [place] pulmonary pulmonary RN disease, disease, unspecified unspecified Multiple Multiple Diagnosis Active Radha sclerosis sclerosis 11-26 [place] RN Primary Primary Diagnosis Active Radha lateral lateral 11-26 [place] sclerosis sclerosis RN Unspecified Unspecified Diagnosis Active 2018-11 Radha fracture of fracture of 2-05 [place] left lower left lower RN leg, leg, subsequent subsequent encounter encounter for closed for closed fracture fracture with with routine routine healing healing 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 11-26 [place] disease of disease of [place] coronary coronary artery artery without without angina angina pectoris pectoris Essential Essential Diagnosis Active Radha (primary) (primary) 11-26 [place] hypertensio hypertensio RN n n Nicotine Nicotine Diagnosis Active Radha dependence, dependence, [place] cigarettes, cigarettes, RN uncomplicat uncomplicat ed ed Essential Essential Diagnosis Active Radha tremor tremor [place] RN 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 [place] a a RN 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, disorder, RN recurrent, recurrent, unspecified unspecified Overactive Overactive Diagnosis Active Radha bladder bladder [place] RN Unspecified Unspecified Diagnosis Active Radha osteoarthri osteoarthri [place] tis, tis, RN unspecified unspecified site site History of History of Diagnosis Active Radha falling falling [place] RN Personal Personal Diagnosis Active Radha history of history of [place] pneumonia pneumonia RN (recurrent) (recurrent) Dependence Dependence Diagnosis Active Radha on on [place] supplementa supplementa RN l oxygen l oxygen residential long term care phlebotomist Diagnosis Active Radha (current) (current) [place] use of use of RN aspirin aspirin residential long term care phlebotomist Diagnosis Active Radha (current) (current) [place] use of use of RN systemic systemic steroids steroids Personal Personal Diagnosis Active Radha history of history of [place] malignant malignant RN neoplasm of neoplasm of breast breast Personal Personal Diagnosis Active Radha history of history of [place] other other RN malignant malignant neoplasm of neoplasm of kidney kidney Acquired Acquired Diagnosis Active Radha absence of absence of [place] kidney kidney RN Personal Personal Diagnosis Active Radha history of history of [place] other other RN 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 Personal Personal Diagnosis Active Radha history of history of [place] urinary urinary RN (tract) (tract) infections infections residential long term care phlebotomist Diagnosis Active Radha (current) (current) [place] use of use of RN non-steroid non-steroid al al anti-inflam anti-inflam matories matories (NSAID) (NSAID) Dependence Dependence Diagnosis Active Radha on on [place] wheelchair wheelchair RN Personal Personal Diagnosis Active Radha history of history of [place] irradiation irradiation RN Pain frequent Pain Mgmt Resolve 2018-112019-10-13 Freida pain d 12-02 10:23:00 Ames 10:30: [id number] 00 Respiratory dyspnea Respirator Active 2018-11 Freida present 12-02 Ames 10:30: [id number] 00 Respiratory oxygen Respirator Active 2018-11 Freida treatments 12-02 Ames in home 10:30: [id number] 00 Respiratory knowledge/s Respirator Active 2018-11 Freida kill y 12-02 Ames deficit: pt 10:30: [id number] 00 Respiratory knowledge/s Respirator Active 2018-11 Freida kill y 12-02 Ames deficit: cg 10:30: [id number] 00 Respiratory lung sounds Respirator Active 2018-11 Freida deficit y 12-02 Ames 10:30: [id number] 00 Respiratory smoker Respirator Resolve 2018-112019-11-21 Freida y d 12-02 10:30:00 Ames 10:30: [id number] 00 Respiratory nebulizer Respirator Active 2018-11 Freida treatment y 12-02 Ames in home 10:30: [id number] 00 Endo/Benjamin anti-coagul Endo/Benjamin Resolve 2018-112019-10-06 Freida ation d 12-02 13:19:00 Ames therapy 10:30: [id number] 00 Sensory impaired Sensory Active 2018-11 Freida hearing 12-02 Ames 10:30: [id number] 00 Integument skin Integument Resolve 2018-112019-10-08 Freida integrity d 12-02 14:40:00 Ames risk 10:30: [id number] 00 Nutrition nutritional Nutrition Resolve 2018-112019-10-13 Freida restriction d 12-02 10:23:00 Ames s 10:30: [id number] 00 Elimination urinary Eliminatio Resolve 2018-112019-10-06 Freida incontinenc n d 12-02 13:19:00 Ames e 10:30: [id number] 00 Neuro confusion Neuro/Emot Active 2018-11 Freida present ion 12-02 Ames 10:30: [id number] 00 Neuro anxiety Neuro/Emot Active 2018-11 Freida present ion 12-02 Ames 10:30: [id number] 00 Neuro depressive Neuro/Emot Active 2018-11 Freida feelings ion 12-02 Ames present 10:30: [id number] 00 Neuro impaired Neuro/Emot Active 2018-11 Freida decision-ma ion 12-02 Ames claritza 10:30: [id number] 00 Activity ADL Activity Active 2018-11 Freida assistance 12-02 Ames required 10:30: [id number] 00 Activity self-care Activity Resolve 2018-112019-10-06 Freida deficit d 12-02 13:19:00 Ames 10:30: [id number] 00 Safety cannot be Safety Active 2018-11 Freida left alone 12-02 Ames 10:30: [id number] 00 Safety knowledge/s Safety Resolve 2018-112019-10-16 Freida kill d 12-02 14:28:00 Ames deficit: pt 10:30: [id number] 00 Safety fall risk Safety Resolve 2018-112019-10-10 Freida factor d 12-02 14:55:00 Ames present 10:30: [id number] 00 Safety risk for Safety Resolve 2018-112019-10-10 Freida hospitaliza d 12-02 14:55:00 Ames tion 10:30: [id number] 00 Medication oral med Meds Resolve 2018-112019-10-13 Freida assistance d 12-02 10:23:00 Ames required 10:30: [id number] 00 Musculoskel transfer Musculoske Resolve 2018-112019-10-13 Freida etal assistance letal d 12-02 10:23:00 Ames required 10:30: [id number] 00 Musculoskel requires Musculoske Resolve 2018-112019-10-13 Freida etal human letal d 12-02 10:23:00 Serena assist to 10:30: [id number] leave home 00 Cardio edema Cardiovasc Resolve 2018-112019-11-11 Radha ular d 12-10 12:38:00 [place] 14:55: RN 00 Safety risk for Safety Resolve 2018-112019-10-16 Radha hospitaliza d 12-13 14:28:00 [place] tion 10:23: RN 00 Medication oral med Meds Resolve 2018-112019-11-17 Radha assistance d 12-16 08:35:00 [place] required 14:28: RN 00 Safety knowledge/s Safety Resolve 2018-112019-11-14 Evelyn kill d 12-17 08:30:00 Traunstein deficit: pt 10:00: [id number] 00 Safety risk for Safety Resolve 2018-112019-10-31 Evelyn hospitaliza d 12-17 14:05:00 [place] tion 10:00: [id number] 00 Social knowledge/s RUSLAN: Active 2018-11 Evelyn Services kill Social 12-17 Traunstein deficit - Services 10:00: [id number] pt 00 Safety can be left Safety Active 2018-11 Shanelle alone for 12-22 Ernestina only short 12:04: [id number] periods 00 Safety fire risk Safety Resolve 2018-112019-10-31 Yesy present d 12-27 14:05:00 Carrier RN 11:50: 00 Safety fire risk: Safety Resolve 2018-112019-10-31 Yesy smoking/O2 d 12-27 14:05:00 Carrier RN in use 11:50: 00 Medication potential Meds Resolve 2018-112019-11-27 Yesy clinically d 2- 08:35:00 Carrier RN significant 11:50: medication 00 issue Elimination urinary Eliminatio Resolve 2018-112019-10-31 Radha incontinenc n d 2-06 14:05:00 [place] e 14:05: RN 00 Activity self-care Activity Resolve 2018-112019-10-31 Radha deficit d 2- 14:05:00 [place] 14:05: RN 00 Safety fall risk Safety Resolve 2018-112019-10-31 Radha factor d 2-06 14:05:00 [place] present 14:05: RN 00 Balance/End balance/discharge coordinator PT/OT: Active 2018-11 Georges urance rdination Balance/En 01-01 Cory, deficit durance 15:00: PT 00 [id number] Gait/Locomo gait PT/OT: Active 2018-11 Georges tion deficit Gait/Locom 01-01 Cory, problems otion 15:00: PT 00 [id number] Elimination urinary Eliminatio Resolve 2018-112019-11-03 Radha incontinenc n d 2-09 13:20:00 [place] e 13:20: RN 00 Safety fall risk Safety Resolve 2018-112019-11-06 Gisele Snyder factor d 2-10 13:30:00 present 13:43: 55 Safety risk for Safety Resolve 2018-112019-11-06 Gisele Snyder hospitaliza d 2-10 13:30:00 tion 13:43: 55 Elimination urinary Eliminatio Resolve 2018-112019-11-06 Radha incontinenc n d 2-12 13:30:00 [place] e 13:30: RN 00 Safety risk for Safety Resolve 2018-112019-11-14 Evelyn hospitaliza d 2- 08:30:00 Traunstein tion 08:30: [id number] 00 Elimination urinary Eliminatio Resolve 2018-112019-11-21 Radha incontinenc n d - 10:30:00 [place] e 08:35: RN 00 Safety risk for Safety Resolve 2018-112019-11-17 Radha hospitaliza d 01-18 08:35:00 [place] tion 08:35: RN 00 Safety risk for Safety Resolve 2018-112019-11-24 Georges hospitaliza d 01-21 08:45:00 flor Ray 09:15: PT 00 [id number] Medication oral med Meds Resolve 2018-112019-11-27 Martha assistance d 01-22 08:35:00 Vallely required 10:30: 00 Medication inhalant Meds Resolve 2018-112019-11-27 Martha med d 01-22 08:35:00 Vallely assistance 10:30: required 00 Elimination urinary Eliminatio Resolve 2018-112019-11-24 Radha incontinenc n d 08:45:00 [place] e 08:45: RN 00 Nutrition nutritional Nutrition Active 2018-11 Georges restriction Cory s 13:15: PT 00 [id number] Safety risk for Safety Unknown 2018-11 Georges hospitaliza dong Rayon 13:15: PT 00 127207-9 Pain frequent Pain Mgmt Active Radha pain 11-27 [place] 08:35: RN 00 Respiratory smoker Respirator Active Radha y 11-27 [place] 08:35: RN 00 Endo/Benjamin anti-coagul Endo/Benjamin Active Radha ation 11-27 [place] therapy 08:35: RN 00 Integument skin Integument Active Radha integrity 11-27 [place] risk 08:35: RN 00 Elimination urinary Eliminatio Resolve 2019-11-27 Radha incontinenc n d 11-27 08:35:00 [place] e 08:35: RN 00 Activity self-care Activity Resolve 2019-11-27 Radha deficit d 11-27 08:35:00 [place] 08:35: RN 00 Safety fall risk Safety Active Radha factor 11-27 [place] present 08:35: RN 00 Safety risk for Safety Active Radha hospitaliza 11-27 [place] tion 08:35: RN 00 Allergies, Adverse Reactions, Alerts Allergy Allergy Type Status Severity Reaction(s) Onset Inactive Treating Comments Name Date Date Clinician codeine Base Active Unknown Reaction 2019-03 Altura Ingredient Unknown -08 Quan Medications Ordered Filled Start Stop Current [...] Unknown Unknown 250 mg 250 mg 12-02 MD,Cinthia tablet tablet Aspirin Low Aspirin Low [...] Unknown Unknown mg capsule mg capsule 12-02 ,Cinthia Miralax 17 Miralax 17 2018-11 Yes Jander Unknown Unknown gram/dose gram/dose 12-02 Cinthia ELLISON oral powder oral powder ipratropium ipratropium 2018-11 Yes Jander Unknown Unknown -albuterol -albuterol 12-06 ,Cinthia 0.5 mg-3 0.5 mg-3 mg(2.5 mg mg(2.5 mg base)/3 mL base)/3 mL nebulizatio nebulizatio n soln n soln Oxygen Oxygen 2018-11 Yes Jander Unknown Unknown 12-02 ,Cinthia predniSONE predniSONE 2018-11- Yes Jander Unknown Unknown 20 mg 20 mg 12-10 ,Cinthia tablet tablet omeprazole omeprazole 2018-11- Yes Jander Unknown Unknown 20 mg 20 mg 12-10 MD,Cinthia capsule,del capsule,del ayed ayed release release fluticasone fluticasone 2018-11 Yes Jander Unknown Unknown propionate propionate 12-16 ,Cinthia 50 50 mcg/actuati mcg/actuati on nasal on nasal spray,suspe spray,suspe nsion nsion predniSONE predniSONE 2018-11- Yes Jander Unknown Unknown 20 mg 20 mg 12-10 ,Cinthia tablet tablet predniSONE predniSONE 2018-11- Yes Jander Unknown Unknown 10 mg 10 mg 12-24 ,Cinthia tablet tablet azithromyci azithromyci 2018-11- Yes Jander Unknown Unknown n 250 mg n 250 mg 01-01 ,Cinthia tablet tablet ibuprofen ibuprofen 2018-11 Yes Jander Unknown Unknown 400 mg 400 mg 01-01 ,Cinthia tablet tablet pantoprazol pantoprazol 2018-11- Yes Jander Unknown Unknown e 40 mg e 40 mg 01-01 MD,Cinthia tablet,manny tablet,manny yed release yed release cefPODOXime cefPODOXime 2018-11- Yes Jander Unknown Unknown 200 mg 200 mg 01-01 ,Cinthia tablet tablet pantoprazol pantoprazol 2018-11 Yes Jander Unknown Unknown e 40 mg e 40 mg 01-01 MD,Cinthia tablet,manny tablet,manny yed release yed release predniSONE predniSONE 2018-11 2019- Yes Jander Unknown Unknown 10 mg 10 mg 2-10 12-20 MD,Cinthia tablet tablet predniSONE predniSONE 2018-11 Yes Jander Unknown Unknown 10 mg 10 mg 2-20 MD,Cinthia tablet tablet Tylenol Tylenol 2018-11 Yes Jander Unknown Unknown Extra Extra 2- MD,Cinthia Strength Strength 500 mg 500 mg tablet tablet Vital Signs Vital Name Observation Time Observation Value Comments SYSTOLIC mm[Hg] 2019-11-27 18:09:40 154 mm[Hg] mm[Hg] Method: Sit DIASTOLIC mm[Hg] 2019-11-27 18:09:40 78 mm[Hg] mm[Hg] Method: Sit PULSE 2019-11-27 18:09:40 76 /min /min RESP RATE 2019-11-27 18:09:40 22 /min /min TEMP 2019-11-27 18:09:40 98.1 [degF] Procedures This patient has no known procedures. Results This patient has no known results.
--- OUTSIDE RECORDS SUMMARY | 2019-12-01 08:12 | XMS REPORT ---
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 [...] supplementa supplementa RN l oxygen l oxygen [employer] Diagnosis Active Radha (current) (current) [place] use of use of RN aspirin aspirin [employer] Diagnosis Active Radha (current) (current) [place] use [...] urinary urinary RN (tract) (tract) infections infections [facility] [employer] Diagnosis Active Radha (current) (current) [place] use of use of RN non-steroid non-steroid al al anti-inflam anti-inflam matories matories (NSAID) (NSAID) Dependence Dependence Diagnosis Active Radha on on [place] wheelchair wheelchair RN Personal Personal Diagnosis Active Radha history of history of [place] irradiation irradiation RN Pain frequent Pain Mgmt Resolve 2018-112019-10-13 Freida pain d 12-02 10:23:00 Dahinda 10:30: [id number] 00 Respiratory dyspnea Respirator Active 2018-11 Freida present 12-02 Dahinda 10:30: [id number] 00 Respiratory oxygen Respirator Active 2018-11 Freida treatments 12-02 Dahinda in home 10:30: [id number] 00 Respiratory knowledge/s Respirator Active 2018-11 Freida kill y 12-02 Dahinda deficit: pt 10:30: [id number] 00 Respiratory knowledge/s Respirator Active 2018-11 Freida kill y 12-02 Dahinda deficit: cg 10:30: [id number] 00 Respiratory lung sounds Respirator Active 2018-11 Freida deficit y 12-02 Dahinda 10:30: [id number] 00 Respiratory smoker Respirator Resolve 2018-112019-11-21 Freida y d 12-02 10:30:00 Dahinda 10:30: [id number] 00 Respiratory nebulizer Respirator Active 2018-11 Freida treatment y 12-02 Dahinda in home 10:30: [id number] 00 Endo/Benjamin anti-coagul Endo/Benjamin Resolve 2018-112019-10-06 Freida ation d 12-02 13:19:00 Dahinda therapy 10:30: [id number] 00 Sensory impaired Sensory Active 2018-11 Freida hearing 12-02 Dahinda 10:30: [id number] 00 Integument skin Integument Resolve 2018-112019-10-08 Freida integrity d 12-02 14:40:00 Dahinda risk 10:30: [id number] 00 Nutrition nutritional Nutrition Resolve 2018-112019-10-13 Freida restriction d 12-02 10:23:00 Dahinda s 10:30: [id number] 00 Elimination urinary Eliminatio Resolve 2018-112019-10-06 Freida incontinenc n d 12-02 13:19:00 Dahinda e 10:30: [id number] 00 Neuro confusion Neuro/Emot Active 2018-11 Freida present ion 12-02 Dahinda 10:30: [id number] 00 Neuro anxiety Neuro/Emot Active 2018-11 Freida present ion 12-02 Dahinda 10:30: [id number] 00 Neuro depressive Neuro/Emot Active 2018-11 Freida feelings ion 12-02 Dahinda present 10:30: [id number] 00 Neuro impaired Neuro/Emot Active 2018-11 Freida decision-ma ion 12-02 Dahinda claritza 10:30: [id number] 00 Activity ADL Activity Active 2018-11 Freida assistance 12-02 Dahinda required 10:30: [id number] 00 Activity self-care Activity Resolve 2018-112019-10-06 Freida deficit d 12-02 13:19:00 Dahinda 10:30: [id number] 00 Safety cannot be Safety Active 2018-11 Freida left alone 12-02 Dahinda 10:30: [id number] 00 Safety knowledge/s Safety Resolve 2018-112019-10-16 Freida kill d 12-02 14:28:00 Dahinda deficit: pt 10:30: [id number] 00 Safety fall risk Safety Resolve 2018-112019-10-10 Freida factor d 12-02 14:55:00 Dahinda present 10:30: [id number] 00 Safety risk for Safety Resolve 2018-112019-10-10 Freida hospitaliza d 12-02 14:55:00 Dahinda tion 10:30: [id number] 00 Medication oral med Meds Resolve 2018-112019-10-13 Freida assistance d 12-02 10:23:00 Dahinda required 10:30: [id number] 00 Musculoskel transfer Musculoske Resolve 2018-112019-10-13 Freida etal assistance letal d 12-02 10:23:00 Dahinda required 10:30: [id number] 00 Musculoskel requires Musculoske Resolve 2018-112019-10-13 Freida etal human letal d 12-02 10:23:00 Serena assist to 10:30: [id number] leave home 00 Cardio edema Cardiovasc Resolve 2018-112019-11-11 Radha ular d 12-10 12:38:00 [place] 14:55: RN 00 Safety risk for Safety Resolve 2018-112019-10-16 Radha hospitaliza d 12-13 14:28:00 [place] tion 10:23: RN 00 Medication oral med Meds Resolve 2018-112019-11-17 Radha assistance d 12-16 08:35:00 [place] required 14:28: RN 00 Safety knowledge/s Safety Resolve 2018-112019-11-14 Evelyn kill d 12-17 08:30:00 Traunstein deficit: pt 10:00: [id number] 00 Safety risk for Safety Resolve 2018-112019-10-31 Evelyn hospitaliza d 12-17 14:05:00 Traunstein tion 10:00: [id number] 00 Social knowledge/s RUSLAN: Active 2018-11 Evelyn Services kill Social 12-17 Traunstein deficit - Services 10:00: [id number] pt 00 Safety can be left Safety Active 2018-11 Shanelle alone for 12-22 Ernestina only short 12:04: [id number] periods 00 Safety fire risk Safety Resolve [...] 14:05:00 [place] present 14:05: RN 00 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 PT/OT: Active 2018-11 Georges urance rdination Balance/En 01-01 Cory, deficit durance 15:00: PT 00 [id number] Gait/Locomo gait PT/OT: Active 2018-11 Georges tion deficit Gait/Locom 01-01 Cory, problems otion 15:00: PT 00 [id number] Elimination urinary Eliminatio Resolve 2018-112019-11-03 Radha incontinenc [...] hospitaliza d 2- 08:30:00 Traunstein tion 08:30: [id number] 00 Elimination urinary Eliminatio Resolve 2018-112019-11-21 Radha incontinenc n d - 10:30:00 [place] e 08:35: RN 00 Safety risk for Safety Resolve 2018-112019-11-17 Radha hospitaliza d 01-18 08:35:00 [place] tion 08:35: RN 00 Safety risk for Safety Resolve 2018-112019-11-24 Georges hospitaliza d 01-21 08:45:00 flor Ray 09:15: PT 00 [id number] Medication oral med Meds Resolve 2018-112019-11-27 Martha assistance d 01-22 08:35:00 Vallely required 10:30: 00 Medication inhalant Meds Resolve 2018-112019-11-27 Martha med d 01-22 08:35:00 Vallely assistance 10:30: required 00 Elimination urinary Eliminatio Resolve 2018-112019-11-24 Radha incontinenc n d 08:45:00 [place] e 08:45: RN 00 Nutrition nutritional Nutrition Active 2018-11 Georges restriction Cory s 13:15: PT 00 [id number] Safety risk for Safety Unknown 2018-11 Georges hospitaliza dong Rayon 13:15: PT 00 [id number] Pain frequent Pain Mgmt Active Radha pain [...] Clinician codeine Base Active Unknown Reaction 2019-03 Deweese Ingredient Unknown -08 Quan Medications Ordered Filled [...] Unknown Unknown Diskus 50 Diskus 50 - MD,Citnhia mcg/dose mcg/dose powder for powder for inhalation [...] Observation Time Observation Value Comments SYSTOLIC mm[Hg] 2019-11-30 18:09:43 138 mm[Hg] mm[Hg] Method: Sit DIASTOLIC mm[Hg] 2019-11-30 18:09:43 74 mm[Hg] mm[Hg] Method: Sit PULSE 2019-11-30 18:09:43 92 /min /min RESP RATE 2019-11-30 18:09:43 22 /min /min TEMP 2019-11-30 18:09:43 97.1 [degF] Procedures This patient has no known procedures. Results This patient has no known results.
--- OUTSIDE RECORDS SUMMARY | 2019-12-01 08:13 | XMS REPORT ---
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 RN Unspecified Unspecified Diagnosis Active 2018-11 Radha fracture of fracture of 2-05 [place] left lower left lower RN leg, leg, subsequent subsequent encounter encounter for closed for closed fracture fracture with with routine routine healing healing Nicotine Nicotine Diagnosis Active Radha dependence, dependence, 11-26 [place] cigarettes, cigarettes, RN uncomplicat uncomplicat ed ed Chronic Chronic Diagnosis Active [facility] disease, disease, unspecified unspecified Essential Essential Diagnosis Active Radha (primary) (primary) [place] hypertensio hypertensio RN n n 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 [place] a a RN Other Other Diagnosis Active Radha muscle muscle [place] spasm spasm RN 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, disorder, RN recurrent, recurrent, unspecified unspecified 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, of bladder, unspecified unspecified Unspecified Unspecified Diagnosis Active Radha osteoarthri osteoarthri [place] tis, tis, RN unspecified unspecified site site History of History of Diagnosis Active Radha falling falling [place] RN Personal Personal Diagnosis Active Radha history of history of [place] pneumonia pneumonia RN (recurrent) (recurrent) Dependence Dependence Diagnosis Active Radha on on [place] supplementa supplementa RN l oxygen l 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 Radha (current) (current) [place] use of use of RN aspirin aspirin shelter shelter Diagnosis Active Radha (current) (current) [place] use of use of RN inhaled inhaled steroids steroids Personal Personal Diagnosis Active Radha [...] urinary urinary RN (tract) (tract) infections infections Essential Essential Diagnosis Active Radha tremor tremor [place] RN Pain frequent Pain Mgmt Resolve 2018-112019-10-13 [place] pain d 12-02 10:23:00 [place] 10:30: [id number] 00 Respiratory dyspnea Respirator Active 2018-11 Freida present y 12-02 [place] 10:30: [id number] 00 Respiratory oxygen Respirator Active 2018-11 Fre[facility] treatments y 12-02 [place] in home 10:30: [id number] 00 Respiratory knowledge/s Respirator Active 2018-11 Fre[place] kill y 12-02 [place] deficit: pt 10:30: [id number] 00 Respiratory knowledge/s Respirator Active 2018-11 Freida kill y 12-02 [place] deficit: cg 10:30: [id number] 00 Respiratory lung sounds Respirator Active 2018-11 Fre[place] deficit y 12-02 [place] 10:30: [id number] 00 Respiratory smoker Respirator Resolve 2018-112019-11-21 Freida y d 12-02 10:30:00 [place] 10:30: [id number] 00 Respiratory nebulizer Respirator Active 2018-11 [facility] treatment y 12-02 [place] in home 10:30: [id number] 00 Endo/Benjamin anti-coagul Endo/Benjamin Resolve 2018-112019-10-06 [place] ation d 12-02 13:19:00 [place] therapy 10:30: [id number] 00 Sensory impaired Sensory Active 2018-11 Freida hearing 12-02 [place] 10:30: [id number] 00 Integument skin Integument Resolve 2018-112019-10-08 Freida integrity d 12-02 14:40:00 [place] risk 10:30: [id number] 00 Nutrition nutritional Nutrition Resolve 2018-112019-10-13 [place] restriction d 12-02 10:23:00 [place] s 10:30: [id number] 00 Elimination urinary Eliminatio Resolve 2018-112019-10-06 [place] incontinenc n d 12-02 13:19:00 [place] e 10:30: [id number] 00 Neuro confusion Neuro/Emot Active 2018-11 Fre[place] present ion 12-02 [place] 10:30: [id number] 00 Neuro anxiety Neuro/Emot Active 2018-11 Freida present ion 12-02 [place] 10:30: [id number] 00 Neuro depressive Neuro/Emot Active 2018-11 Freida feelings ion 12-02 [place] present 10:30: [id number] 00 Neuro impaired Neuro/Emot Active 2018-11 [facility] decision-ma ion 12-02 [place] claritza 10:30: [id number] 00 Activity ADL Activity Active 2018-11 Freida assistance 12-02 [place] required 10:30: [id number] 00 Activity self-care Activity Resolve 2018-112019-10-06 [place] deficit d 12-02 13:19:00 [place] 10:30: [id number] 00 Safety cannot be Safety Active 2018-11 Freida left alone 12-02 [place] 10:30: [id number] 00 Safety knowledge/s Safety Resolve 2018-112019-10-16 [place] kill d 12-02 14:28:00 [place] deficit: pt 10:30: [id number] 00 Safety fall risk Safety Resolve 2018-112019-10-10 Freida factor d 12-02 14:55:00 [place] present 10:30: [id number] 00 Safety risk for Safety Resolve 2018-112019-10-10 Fre[facility] hospitaliza d 12-02 14:55:00 [place] tion 10:30: [id number] 00 Medication oral med Meds Resolve 2018-112019-10-13 [place] assistance d 12-02 10:23:00 [place] required 10:30: [id number] 00 Musculoskel transfer Musculoske Resolve 2018-112019-10-13 Fre[place] etal assistance letal d 12-02 10:23:00 [place] required 10:30: [id number] 00 Musculoskel requires Musculoske Resolve 2018-112019-10-13 Freida etal human letal d 12-02 10:23:00 [place] assist to 10:30: [id number] leave home 00 Cardio edema Cardiovasc Resolve 2018-112019-11-11 Radha ular d 12-10 12:38:00 [place] 14:55: RN 00 Safety risk for Safety Resolve 2018-112019-10-16 Radha hospitaliza d 12-13 14:28:00 [place] tion 10:23: RN 00 Medication oral med Meds Resolve 2018-112019-11-17 Radha assistance d 12-16 08:35:00 [place] required 14:28: RN 00 Safety knowledge/s Safety Resolve 2018-112019-11-14 Evelyn kill d 12-17 08:30:00 [place] deficit: pt 10:00: [id number] 00 Safety risk for Safety Resolve 2018-112019-10-31 Evelyn hospitaliza d 12-17 14:05:00 [place] tion 10:00: [id number] 00 Social knowledge/s RUSLAN: Active 2018-11 Evelyn Services kill Social 12-17 [place] deficit - Services 10:00: [id number] pt 00 Safety can be left Safety Active 2018-11 Shanelle alone for 12-22 Ernestina only short 12:04: [id number] periods 00 Safety fire risk Safety Resolve 2018-112019-10-31 Yesy present d 12-27 14:05:00 Carrier RN 11:50: 00 Safety fire risk: Safety Resolve 2018-112019-10-31 Yesy smoking/O2 d 12-27 14:05:00 Carrier RN in use 11:50: 00 Medication potential Meds Active 2018-11 Yesy clinically 12-27 Carrier RN significant 11:50: medication 00 issue Elimination urinary Eliminatio Resolve 2018-112019-10-31 Radha incontinenc n d 01-01 14:05:00 [place] e 14:05: RN 00 Activity self-care Activity Resolve 2018-112019-10-31 Radha deficit d 2-06 14:05:00 [place] 14:05: RN 00 Safety fall risk Safety Resolve 2018-112019-10-31 Radha factor d 2-06 14:05:00 [place] present 14:05: RN 00 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 PT/OT: Active 2018-11 Georges urance rdination Balance/En - Cory, deficit durance 15:00: PT 00 [id number] Gait/Locomo gait PT/OT: Active 2018-11 Georges tion deficit Gait/Locom - Cory, problems otion 15:00: PT 00 [id number] Elimination urinary Eliminatio Resolve 2018-112019-11-03 Radha incontinenc [...] for Safety Resolve 2018-112019-11-14 Evelyn hospitaliza d 2-13 08:30:00 [place] tion 08:30: [id number] 00 Elimination urinary Eliminatio Resolve 2018-112019-11-21 Radha incontinenc n d 2- 10:30:00 [place] e 08:35: RN 00 Safety risk for Safety Resolve 2018-112019-11-17 Radha hospitaliza d 2- 08:35:00 [place] tion 08:35: RN 00 Safety risk for Safety Resolve 2018-112019-11-24 Georges hospitaliza d - 08:45:00 Cory tidavid 09:15: PT 00 [id number] Medication oral med Meds Active 2018-11 Martha assistance 01-22 [place] required 10:30: 00 Medication inhalant Meds Active 2018-11 Martha med 01-22 [place] assistance 10:30: required 00 Elimination urinary Eliminatio Resolve 2018-112019-11-24 Radha incontinenc n d 08:45:00 Marcelo e 08:45: RN 00 Nutrition nutritional Nutrition Active 2018-11 Georges restriction guille Ray 13:15: PT 00 [id number] Safety risk for Safety Unknown 2018-11 Georges hospitaliza flor Ray 13:15: PT 00 [id number] Allergies, Adverse Reactions, Alerts Allergy Allergy Type Status Severity Reaction(s) Onset Inactive Treating Comments Name Date Date Clinician codeine Base Active Unknown Reaction 2019-03 [place] Ingredient Quan Medications Ordered Filled Start Stop Current Ordering Indication Dosage Frequency Signature Comments Components Medication Medication Date Date Medication? Clinician (SIG) Name Name FLUoxetine FLUoxetine 2018-11 Yes Jander Unknown Unknown 20 mg 20 mg 1- MD,Cinthia capsule capsule atorvastati atorvastati 2018-11 Yes Jander Unknown Unknown n 20 mg n 20 mg - MD,Cinthia tablet tablet ProAir HFA ProAir HFA 2018-11 Yes Jander Unknown Unknown 90 90 - ,Cinthia mcg/actuati mcg/actuati on aerosol on aerosol inhaler inhaler Serevent Serevent 2018-11 Yes Jander Unknown Unknown Diskus 50 Diskus 50 -07 ,Cinthia mcg/dose mcg/dose powder for powder for [...] Unknown Unknown 10 mg 10 mg 1-07 Cinthia ELLISON tablet tablet losartan losartan 2018-11 [...] Unknown 12-02 Cinthia ELLISON predniSONE predniSONE 2018-11- Yes Jander Unknown Unknown 20 mg 20 mg 12-10 Cinthia ELLISON tablet tablet omeprazole omeprazole 2018-11- Yes Jander Unknown Unknown 20 mg 20 mg 12-10 MDCinthia capsule,del capsule,del ayed ayed release release fluticasone [...] Unknown n 250 mg n 250 mg 01-01- MD,Cinthia tablet tablet ibuprofen ibuprofen 2018-11 Yes Jander Unknown Unknown 400 mg 400 mg 01-01 MD,Cinthia tablet tablet pantoprazol pantoprazol 2018-11- Yes Jander Unknown Unknown e 40 mg e 40 mg 01-01 MD,Cinthia tablet,manny tablet,manny yed release yed release cefPODOXime cefPODOXime 2018-11- Yes Jander Unknown Unknown 200 mg 200 mg 01-01 MD,Cinthia tablet tablet pantoprazol pantoprazol 2018-11 Yes Jander Unknown Unknown e 40 mg e 40 mg 01-01 MD,Cinthia tablet,manny tablet,manny yed release yed release predniSONE predniSONE 2018-11- Yes Jander Unknown Unknown 10 mg 10 mg 01-05 MD,Cinthia tablet tablet predniSONE predniSONE 2018-11 Yes Jander Unknown Unknown 10 mg 10 mg 01-15 MD,Cinthia tablet tablet Tylenol Tylenol 2018-11 Yes Jander Unknown Unknown Extra Extra 01-22 MD,Cinthia Strength Strength 500 mg 500 mg tablet tablet Vital Signs Vital Name Observation Time Observation Value Comments SYSTOLIC mm[Hg] 2019-11-24 18:09:37 138 mm[Hg] mm[Hg] Method: Sit DIASTOLIC mm[Hg] 2019-11-24 18:09:37 80 mm[Hg] mm[Hg] Method: Sit PULSE 2019-11-24 18:09:37 88 /min /min RESP RATE 2019-11-24 18:09:37 20 /min /min TEMP 2019-11-24 18:09:37 97.2 [degF] Procedures This patient has no known procedures. Results This patient has no known results.
--- OUTSIDE RECORDS SUMMARY | 2019-12-01 08:13 | XMS REPORT ---
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 RN Unspecified Unspecified Diagnosis Active 2018-11 Radha fracture of fracture of 2- [place] left lower left lower RN leg, leg, subsequent subsequent encounter encounter for closed for closed fracture fracture with with routine routine healing healing Nicotine Nicotine Diagnosis Active Radha dependence, dependence, 11-26 [place] cigarettes, cigarettes, RN uncomplicat uncomplicat ed ed Chronic Chronic Diagnosis Active [facility] disease, disease, unspecified unspecified [...] supplementa supplementa RN l oxygen l oxygen 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) (current) [place] use of use of RN aspirin aspirin 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 Active Radha (current) (current) [place] use [...] Resolve 2018-112019-10-13 Fre[place] pain d 12-02 10:23:00 [place] 10:30: [id number] 00 Respiratory dyspnea Respirator Active 2018-11 Freida present y 12-02 [place] 10:30: [id number] 00 Respiratory oxygen Respirator Active 2018-11 Freida treatments y 12-02 [place] in home 10:30: [id number] 00 Respiratory knowledge/s Respirator Active 2018-11 Freida kill y 12-02 [place] deficit: pt 10:30: [id number] 00 Respiratory knowledge/s Respirator Active 2018-11 Freida kill y 12-02 [place] deficit: cg 10:30: [id number] 00 Respiratory lung sounds Respirator Active 2018-11 Freida deficit y 12-02 [place] 10:30: [id number] 00 Respiratory smoker Respirator Resolve 2018-112019-11-21 Freida y d 12-02 10:30:00 [place] 10:30: [id number] 00 Respiratory nebulizer Respirator Active 2018-11 Freida treatment y 12-02 [place] in home 10:30: [id number] 00 Endo/Benjamin anti-coagul Endo/Benjamin Resolve 2018-112019-10-06 Freida ation d 12-02 13:19:00 [place] therapy 10:30: [id number] 00 Sensory impaired Sensory Active 2018-11 Freida hearing 12-02 [place] 10:30: [id number] 00 Integument skin Integument Resolve 2018-112019-10-08 Freida integrity d 12-02 14:40:00 [place] risk 10:30: [id number] 00 Nutrition nutritional Nutrition Resolve 2018-112019-10-13 Freida restriction d 12-02 10:23:00 [place] s 10:30: [id number] 00 Elimination urinary Eliminatio Resolve 2018-112019-10-06 Freida incontinenc n d 12-02 13:19:00 [place] e 10:30: [id number] 00 Neuro confusion Neuro/Emot Active 2018-11 Freida present ion 12-02 [place] 10:30: [id number] 00 Neuro anxiety Neuro/Emot Active 2018-11 Freida present ion 12-02 [place] 10:30: [id number] 00 Neuro depressive Neuro/Emot Active 2018-11 Freida feelings ion 12-02 [place] present 10:30: [id number] 00 Neuro impaired Neuro/Emot Active 2018-11 Fre[place] decision-ma ion 12-02 [place] claritza 10:30: [id number] 00 Activity ADL Activity Active 2018-11 Freida assistance 12-02 [place] required 10:30: [id number] 00 Activity self-care Activity Resolve 2018-112019-10-06 Freida deficit d 12-02 13:19:00 [place] 10:30: [id number] 00 Safety cannot be Safety Active 2018-11 Freida left alone 12-02 [place] 10:30: [id number] 00 Safety knowledge/s Safety Resolve 2018-112019-10-16 Freida kill d 12-02 14:28:00 [place] deficit: pt 10:30: [id number] 00 Safety fall risk Safety Resolve 2018-112019-10-10 Freida factor d 12-02 14:55:00 [place] present 10:30: [id number] 00 Safety risk for Safety Resolve 2018-112019-10-10 Freida hospitaliza d 12-02 14:55:00 [place] tion 10:30: [id number] 00 Medication oral med Meds Resolve 2018-112019-10-13 Freida assistance d 12-02 10:23:00 [place] required 10:30: [id number] 00 Musculoskel transfer Musculoske Resolve 2018-112019-10-13 Freida etal assistance letal d 12-02 10:23:00 [place] required 10:30: [id number] 00 Musculoskel requires Musculoske Resolve 2018-112019-10-13 Freida etal human letal d 12-02 10:23:00 [place] assist to 10:30: [id number] leave home 00 Cardio edema Cardiovasc Resolve 2018-112019-11-11 Radha ular d 12-10 12:38:00 [place] 14:55: RN 00 Safety risk for Safety Resolve 2018-112019-10-16 Radha hospitaliza d 12-13 14:28:00 [place] tion 10:23: RN 00 Medication oral med Meds Resolve 2018-112019-11-17 Radha assistance d 12-16 08:35:00 [place] required 14:28: RN 00 Safety knowledge/s Safety Resolve 2018-112019-11-14 Evelyn kill d 12-17 08:30:00 [place] deficit: pt 10:00: [id number] 00 Safety risk for Safety Resolve 2018-112019-10-31 Evelyn hospitaliza d 12-17 14:05:00 [place] tion 10:00: [id number] 00 Social knowledge/s RUSLAN: Active 2018-11 Evelyn Services kill Social 12-17 [place] deficit - Services 10:00: [id number] pt 00 Safety can be left Safety Active 2018-11 Shanelle alone for 12-22 Ernestina only short 12:04: [id number] periods 00 Safety fire risk Safety Resolve [...] 14:05:00 [place] present 14:05: RN 00 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 PT/OT: Active 2018-11 Georges urance rdination Balance/En - Cory, deficit durance 15:00: PT 00 [id number] Gait/Locomo gait PT/OT: Active 2018-11 Georges tion deficit Gait/Locom - Cory, problems otion 15:00: PT 00 [id number] Elimination urinary Eliminatio Resolve 2018-112019-11-03 Radha incontinenc [...] hospitaliza d 2-13 08:30:00 [place] tion 08:30: [id number] 00 Elimination urinary Eliminatio Resolve 2018-112019-11-21 Radha incontinenc n d 2- 10:30:00 [place] e 08:35: RN 00 Safety risk for Safety Resolve 2018-112019-11-17 Radha hospitaliza d 2- 08:35:00 [place] tion 08:35: RN 00 Safety risk for Safety Resolve 2018-112019-11-24 Georges hospitaliza d - 08:45:00 Cory tidavid 09:15: PT 00 [id number] Medication oral med Meds Active 2018-11 Martha assistance 01-22 [place] required 10:30: 00 Medication inhalant Meds Active 2018-11 Martha med 01-22 [place] assistance 10:30: required 00 Elimination urinary Eliminatio Resolve 2018-112019-11-24 Radha incontinenc n d 08:45:00 Marcelo e 08:45: RN 00 Nutrition nutritional Nutrition Active 2018-11 Georges restriction guille Ray 13:15: PT 00 [id number] Safety risk for Safety Unknown 2018-11 Georges hospitaliza flor Ray 13:15: PT 00 [id number] Allergies, Adverse Reactions, Alerts Allergy Allergy Type Status Severity Reaction(s) Onset Inactive Treating Comments Name Date Date Clinician codeine Base Active Unknown Reaction 2019-03 [place] Ingredient Quan Medications Ordered Filled Start Stop [...]
--- OUTSIDE RECORDS SUMMARY | 2019-12-01 08:13 | XMS REPORT ---
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 [facility] Diagnosis Active Radha (current) (current) [place] use [...] Resolve 2018-112019-10-13 [place] pain d 12-02 10:23:00 [place] 10:30: [id number] 00 Respiratory dyspnea Respirator Active 2018-11 Frieda present y 12-02 [place] 10:30: [id number] 00 Respiratory oxygen Respirator Active 2018-11 Freida treatments y 12-02 [place] in home 10:30: [id number] 00 Respiratory knowledge/s Respirator Active 2018-11 Freida kill y 12-02 [place] deficit: pt 10:30: [id number] 00 Respiratory knowledge/s Respirator Active 2018-11 Freida kill y 12-02 [place] deficit: cg 10:30: [id number] 00 Respiratory lung sounds Respirator Active 2018-11 Freida deficit y 12-02 [place] 10:30: [id number] 00 Respiratory smoker Respirator Resolve 2018-112019-11-21 Freida y d 12-02 10:30:00 [place] 10:30: [id number] 00 Respiratory nebulizer Respirator Active 2018-11 Freida treatment y 12-02 [place] in home 10:30: [id number] 00 Endo/Benjamin anti-coagul Endo/Benjamin Resolve 2018-112019-10-06 Freida ation d 12-02 13:19:00 [place] therapy 10:30: [id number] 00 Sensory impaired Sensory Active 2018-11 Freida hearing 12-02 [place] 10:30: [id number] 00 Integument skin Integument Resolve 2018-112019-10-08 Freida integrity d 12-02 14:40:00 [place] risk 10:30: [id number] 00 Nutrition nutritional Nutrition Resolve 2018-112019-10-13 Freida restriction d 12-02 10:23:00 [place] s 10:30: [id number] 00 Elimination urinary Eliminatio Resolve 2018-112019-10-06 Freida incontinenc n d 12-02 13:19:00 [place] e 10:30: [id number] 00 Neuro confusion Neuro/Emot Active 2018-11 Freida present ion 12-02 [place] 10:30: [id number] 00 Neuro anxiety Neuro/Emot Active 2018-11 Freida present ion 12-02 [place] 10:30: [id number] 00 Neuro depressive Neuro/Emot Active 2018-11 Freida feelings ion 12-02 [place] present 10:30: [id number] 00 Neuro impaired Neuro/Emot Active 2018-11 Freida decision-ma ion 12-02 [place] claritza 10:30: [id number] 00 Activity ADL Activity Active 2018-11 Freida assistance 12-02 [place] required 10:30: [id number] 00 Activity self-care Activity Resolve 2018-112019-10-06 Freida deficit d 12-02 13:19:00 [place] 10:30: [id number] 00 Safety cannot be Safety Active 2018-11 Freida left alone 12-02 [place] 10:30: [id number] 00 Safety knowledge/s Safety Resolve 2018-112019-10-16 Freida kill d 12-02 14:28:00 [place] deficit: pt 10:30: [id number] 00 Safety fall risk Safety Resolve 2018-112019-10-10 Freida factor d 12-02 14:55:00 [place] present 10:30: [id number] 00 Safety risk for Safety Resolve 2018-112019-10-10 Freida hospitaliza d 12-02 14:55:00 [place] tion 10:30: [id number] 00 Medication oral med Meds Resolve 2018-112019-10-13 Freida assistance d 12-02 10:23:00 [place] required 10:30: [id number] 00 Musculoskel transfer Musculoske Resolve 2018-112019-10-13 Freida etal assistance letal d 12-02 10:23:00 [place] required 10:30: [id number] 00 Musculoskel requires Musculoske Resolve 2018-112019-10-13 Freida etal human letal d 12-02 10:23:00 [place] assist to 10:30: [id number] leave home 00 Cardio edema Cardiovasc Resolve 2018-112019-11-11 Radha ular d 12-10 12:38:00 [place] 14:55: RN 00 Safety risk for Safety Resolve 2018-112019-10-16 Radha hospitaliza d 12-13 14:28:00 [place] tion 10:23: RN 00 Medication oral med Meds Resolve 2018-112019-11-17 Radha assistance d 12-16 08:35:00 [place] required 14:28: RN 00 Safety knowledge/s Safety Resolve 2018-112019-11-14 Evelyn kill d 12-17 08:30:00 [place] deficit: pt 10:00: [id number] 00 Safety risk for Safety Resolve 2018-112019-10-31 Evelyn hospitaliza d 12-17 14:05:00 [place] tion 10:00: [id number] 00 Social knowledge/s RUSLAN: Active 2018-11 Evelyn Services kill Social 12-17 [place] deficit - Services 10:00: [id number] pt 00 Safety can be left Safety Active 2018-11 Shanelle alone for 12-22 Ernestina only short 12:04: [id number] periods 00 Safety fire risk Safety Resolve [...] 14:05:00 [place] present 14:05: RN 00 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 PT/OT: Active 2018-11 Georges urance rdination Balance/En - Cory, deficit durance 15:00: PT 00 [id number] Gait/Locomo gait PT/OT: Active 2018-11 Georges tion deficit Gait/Locom - Cory, problems otion 15:00: PT 00 [id number] Elimination urinary Eliminatio Resolve 2018-112019-11-03 Radha incontinenc [...] hospitaliza d 2-13 08:30:00 [place] tion 08:30: [id number] 00 Elimination urinary Eliminatio Resolve 2018-112019-11-21 Radha incontinenc n d 2- 10:30:00 [place] e 08:35: RN 00 Safety risk for Safety Resolve 2018-112019-11-17 Radha hospitaliza d 2- 08:35:00 [place] tion 08:35: RN 00 Safety risk for Safety Resolve 2018-112019-11-24 Georges hospitaliza d - 08:45:00 Cory tidavid 09:15: PT 00 [id number] Medication oral med Meds Active 2018-11 Martha assistance 01-22 [place] required 10:30: 00 Medication inhalant Meds Active 2018-11 Martha med 01-22 [place] assistance 10:30: required 00 Elimination urinary Eliminatio Resolve 2018-112019-11-24 Radha incontinenc n d 08:45:00 Marcelo e 08:45: RN 00 Nutrition nutritional Nutrition Active 2018-11 Georges restriction guille Ray 13:15: PT 00 [id number] Safety risk for Safety Unknown 2018-11 Georges hospitaliza flor Ray 13:15: PT 00 [id number] Allergies, Adverse Reactions, Alerts Allergy Allergy Type Status Severity Reaction(s) Onset Inactive Treating Comments Name Date Date Clinician codeine Base Active Unknown Reaction 2019-03 [place] Ingredient Quan Medications Ordered Filled Start Stop Current Ordering Indication Dosage Frequency Signature Comments Components Medication Medication Date Date Medication? Clinician (SIG) Name Name FLUoxetine FLUoxetine 2018-11 Yes Jander Unknown Unknown 20 mg 20 mg 1- MD,Icnthia capsule capsule atorvastati atorvastati 2018-11 Yes Jander [...] Unknown Unknown mg capsule mg capsule 12-02 Cinthai ELLISON Miralax 17 Miralax 17 2018-11 Yes [...]
--- OUTSIDE RECORDS SUMMARY | 2019-12-01 08:13 | XMS REPORT ---
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 Radha (current) (current) [place] [...] Resolve 2018-112019-10-13 [place] pain d 12-02 10:23:00 [place] 10:30: [id number] 00 Respiratory dyspnea Respirator Active 2018-11 Freida present y 12-02 [place] 10:30: [id number] 00 Respiratory oxygen Respirator Active 2018-11 Freida treatments y 12-02 [place] in home 10:30: [id number] 00 Respiratory knowledge/s Respirator Active 2018-11 Fre[place] kill y 12-02 [place] deficit: pt 10:30: [id number] 00 Respiratory knowledge/s Respirator Active 2018-11 Freida kill y 12-02 [place] deficit: cg 10:30: [id number] 00 Respiratory lung sounds Respirator Active 2018-11 [place] deficit y 12-02 [place] 10:30: [id number] 00 Respiratory smoker Respirator Resolve 2018-112019-11-21 Freida y d 12-02 10:30:00 [place] 10:30: [id number] 00 Respiratory nebulizer Respirator Active 2018-11 [place] treatment y 12-02 [place] in home 10:30: [id number] 00 Endo/Benjamin anti-coagul Endo/Benjamin Resolve 2018-112019-10-06 Freida ation d 12-02 13:19:00 [place] therapy 10:30: [id number] 00 Sensory impaired Sensory Active 2018-11 Fre[place] hearing 12-02 [place] 10:30: [id number] 00 Integument skin Integument Resolve 2018-112019-10-08 Freida integrity d 12-02 14:40:00 [place] risk 10:30: [id number] 00 Nutrition nutritional Nutrition Resolve 2018-112019-10-13 Fre[place] restriction d 12-02 10:23:00 [place] s 10:30: [id number] 00 Elimination urinary Eliminatio Resolve 2018-112019-10-06 Freida incontinenc n d 12-02 13:19:00 [place] e 10:30: [id number] 00 Neuro confusion Neuro/Emot Active 2018-11 Fre[place] present ion 12-02 [place] 10:30: [id number] 00 Neuro anxiety Neuro/Emot Active 2018-11 Freida present ion 12-02 [place] 10:30: [id number] 00 Neuro depressive Neuro/Emot Active 2018-11 Freida feelings ion 12-02 [place] present 10:30: [id number] 00 Neuro impaired Neuro/Emot Active 2018-11 Freida decision-ma ion 12-02 [place] claritza 10:30: [id number] 00 Activity ADL Activity Active 2018-11 Freida assistance 12-02 [place] required 10:30: [id number] 00 Activity self-care Activity Resolve 2018-112019-10-06 Fre[place] deficit d 12-02 13:19:00 [place] 10:30: [id number] 00 Safety cannot be Safety Active 2018-11 Freida left alone 12-02 [place] 10:30: [id number] 00 Safety knowledge/s Safety Resolve 2018-112019-10-16 Fre[place] kill d 12-02 14:28:00 [place] deficit: pt 10:30: [id number] 00 Safety fall risk Safety Resolve 2018-112019-10-10 Freida factor d 12-02 14:55:00 [place] present 10:30: [id number] 00 Safety risk for Safety Resolve 2018-112019-10-10 Freida hospitaliza d 12-02 14:55:00 [place] tion 10:30: [id number] 00 Medication oral med Meds Resolve 2018-112019-10-13 Freida assistance d 12-02 10:23:00 [place] required 10:30: [id number] 00 Musculoskel transfer Musculoske Resolve 2018-112019-10-13 Freida etal assistance letal d 12-02 10:23:00 [place] required 10:30: [id number] 00 Musculoskel requires Musculoske Resolve 2018-112019-10-13 Freida etal human letal d 12-02 10:23:00 Santa assist to 10:30: [id number] leave home 00 Cardio edema Cardiovasc Resolve 2018-112019-11-11 Rdaha ular d 12-10 12:38:00 [place] 14:55: RN 00 Safety risk for Safety Resolve 2018-112019-10-16 Radha hospitaliza d 12-13 14:28:00 [place] tion 10:23: RN 00 Medication oral med Meds Resolve 2018-112019-11-17 Radha assistance d 12-16 08:35:00 [place] required 14:28: RN 00 Safety knowledge/s Safety Resolve 2018-112019-11-14 Evelyn kill d 12-17 08:30:00 [place] deficit: pt 10:00: [id number] 00 Safety risk for Safety Resolve 2018-112019-10-31 Evelyn hospitaliza d 12-17 14:05:00 [place] tion 10:00: [id number] 00 Social knowledge/s RUSLAN: Active 2018-11 Evelyn Services kill Social 12-17 [place] deficit - Services 10:00: [id number] pt 00 Safety can be left Safety Active 2018-11 Shanelle alone for 12-22 Ernestina only short 12:04: [id number] periods 00 Safety fire risk Safety Resolve [...] 14:05:00 [place] present 14:05: RN 00 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 PT/OT: Active 2018-11 Georges urance rdination Balance/En - Cory, deficit durance 15:00: PT 00 [id number] Gait/Locomo gait PT/OT: Active 2018-11 Georges tion deficit Gait/Locom - Cory, problems otion 15:00: PT 00 [id number] Elimination urinary Eliminatio Resolve 2018-112019-11-03 Radha incontinenc [...] hospitaliza d 2-13 08:30:00 [place] tion 08:30: [id number] 00 Elimination urinary Eliminatio Resolve 2018-112019-11-21 Radha incontinenc n d 2- 10:30:00 [place] e 08:35: RN 00 Safety risk for Safety Resolve 2018-112019-11-17 Radha hospitaliza d 2- 08:35:00 [place] tion 08:35: RN 00 Safety risk for Safety Resolve 2018-112019-11-24 Georges hospitaliza d - 08:45:00 Cory tidavid 09:15: PT 00 [id number] Medication oral med Meds Active 2018-11 Martha assistance 01-22 [place] required 10:30: 00 Medication inhalant Meds Active 2018-11 Martha med 01-22 [place] assistance 10:30: required 00 Elimination urinary Eliminatio Resolve 2018-112019-11-24 Radha incontinenc n d 08:45:00 [place] e 08:45: RN 00 Nutrition nutritional Nutrition Active 2018-11 Georges restriction Cory guille 13:15: PT 00 [id number] Safety risk for Safety Unknown 2018-11 [facility] [place] 13:15: PT 00 [id number] Pain frequent Pain Mgmt Active Radha pain 11-27 [place] 08:35: RN 00 Endo/Benjamin anti-coagul Endo/Benjamin Active Radha ation 11-27 [place] therapy 08:35: RN 00 Integument skin Integument Active Radha integrity 11-27 [place] risk 08:35: RN 00 Allergies, Adverse Reactions, Alerts Allergy Allergy Type Status Severity Reaction(s) Onset Inactive Treating Comments Name Date Date Clinician codeine Base Active Unknown Reaction 2019-03 [place] Ingredient Quan Medications Ordered Filled Start Stop Current Ordering Indication Dosage Frequency Signature Comments Components Medication Medication Date Date Medication? Clinician (SIG) Name Name FLUoxetine FLUoxetine 2018-11 Yes Jander Unknown Unknown 20 mg 20 mg 1-07 ,Cinthia capsule capsule atorvastati atorvastati 2018-11 Yes Jander Unknown Unknown n 20 mg n 20 mg -07 ,Cinthia tablet tablet ProAir HFA ProAir HFA 2018-11 Yes Jander Unknown Unknown 90 90 -07 ,Cinthia mcg/actuati mcg/actuati on aerosol on aerosol [...] Yes Jander Unknown Unknown mg mg 1-07 MD,Cinthia capsule,ext capsule,ext ended ended release release Myrbetriq Myrbetriq 2018-11 Yes Jander Unknown Unknown 50 mg 50 mg 1-07 MD,Cinthia tablet,exte tablet,exte nded nded release release [...] Yes Jander Unknown Unknown gram/dose gram/dose 12-02 iCnthia ELLISON oral powder oral powder ipratropium ipratropium 2018-11 Yes Jander Unknown Unknown -albuterol -albuterol - Cinthia ELLISON 0.5 mg-3 0.5 mg-3 mg(2.5 [...] mg 12-10 MD,Cinthia tablet tablet predniSONE predniSONE 2018-11- Yes Jander Unknown Unknown 10 mg 10 mg 12-24 MD,Cinthia tablet tablet azithromyci azithromyci 2018-11- Yes Jander [...] Jander Unknown Unknown 10 mg 10 mg 01-05- MD,Cinthia tablet tablet predniSONE predniSONE 2018-11 Yes Jander Unknown Unknown 10 mg 10 mg 01-15 MD,Cinthia tablet tablet Tylenol Tylenol 2018-11 Yes Jander Unknown Unknown Extra Extra - MD,Cinthia Strength Strength 500 mg 500 mg [...]
--- OUTSIDE RECORDS SUMMARY | 2019-12-01 08:13 | XMS REPORT ---
[...] Active 2018-11 Radha fracture of fracture of 12-31 [place] left lower left lower RN leg, leg, subsequent subsequent encounter encounter for closed for closed fracture fracture with with routine routine healing healing Nicotine Nicotine Diagnosis Active Radha dependence, dependence, 11-26 [place] cigarettes, cigarettes, RN uncomplicat uncomplicat ed ed Chronic Chronic Diagnosis Active 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) (current) [place] use of use of RN aspirin aspirin [facility] Diagnosis Active Radha (current) (current) [place] use [...] Resolve 2018-112019-10-13 Freida pain d 12-02 10:23:00 [place] 10:30: [id number] 00 Respiratory dyspnea Respirator Active 2018-11 Freida present y 12-02 [place] 10:30: [id number] 00 Respiratory oxygen Respirator Active 2018-11 Freida treatments y 12-02 [place] in home 10:30: [id number] 00 Respiratory knowledge/s Respirator Active 2018-11 Freida kill y 12-02 [place] deficit: pt 10:30: [id number] 00 Respiratory knowledge/s Respirator Active 2018-11 Freida kill y 12-02 [place] deficit: cg 10:30: [id number] 00 Respiratory lung sounds Respirator Active 2018-11 Freida deficit y 12-02 [place] 10:30: [id number] 00 Respiratory smoker Respirator Active 2018-11 Freida y 12-02 [place] 10:30: [id number] 00 Respiratory nebulizer Respirator Active 2018-11 Freida treatment y 12-02 [place] in home 10:30: [id number] 00 Endo/Benjamin anti-coagul Endo/Benjamin Resolve 2018-112019-10-06 Freida ation d 12-02 13:19:00 [place] therapy 10:30: [id number] 00 Sensory impaired Sensory Active 2018-11 Freida hearing 12-02 [place] 10:30: [id number] 00 Integument skin Integument Resolve 2018-112019-10-08 Freida integrity d 12-02 14:40:00 [place] risk 10:30: [id number] 00 Nutrition nutritional Nutrition Resolve 2018-112019-10-13 Freida restriction d 12-02 10:23:00 [place] s 10:30: [id number] 00 Elimination urinary Eliminatio Resolve 2018-112019-10-06 Freida incontinenc n d 12-02 13:19:00 [place] e 10:30: [id number] 00 Neuro confusion Neuro/Emot Active 2018-11 Freida present ion 12-02 [place] 10:30: [id number] 00 Neuro anxiety Neuro/Emot Active 2018-11 Freida present ion 12-02 [place] 10:30: [id number] 00 Neuro depressive Neuro/Emot Active 2018-11 Freida feelings ion 12-02 [place] present 10:30: [id number] 00 Neuro impaired Neuro/Emot Active 2018-11 Freida decision-ma ion 12-02 [place] claritza 10:30: [id number] 00 Activity ADL Activity Active 2018-11 Freida assistance 12-02 [place] required 10:30: [id number] 00 Activity self-care Activity Resolve 2018-112019-10-06 Freida deficit d 12-02 13:19:00 [place] 10:30: [id number] 00 Safety cannot be Safety Active 2018-11 Freida left alone 12-02 [place] 10:30: [id number] 00 Safety knowledge/s Safety Resolve 2018-112019-10-16 Freida kill d 12-02 14:28:00 [place] deficit: pt 10:30: [id number] 00 Safety fall risk Safety Resolve 2018-112019-10-10 Freida factor d 12-02 14:55:00 [place] present 10:30: [id number] 00 Safety risk for Safety Resolve 2018-112019-10-10 Freida hospitaliza d 12-02 14:55:00 [place] tion 10:30: [id number] 00 Medication oral med Meds Resolve 2018-112019-10-13 Freida assistance d 12-02 10:23:00 [place] required 10:30: [id number] 00 Musculoskel transfer Musculoske Resolve 2018-112019-10-13 Freida etal assistance letal d 12-02 10:23:00 Serena required 10:30: [id number] 00 Musculoskel requires Musculoske Resolve 2018-112019-10-13 Freida etal human letal d 12-02 10:23:00 [place] assist to 10:30: [id number] leave home 00 Cardio edema Cardiovasc Resolve 2018-112019-11-11 Radha ular d 12-10 12:38:00 [place] 14:55: RN 00 Safety risk for Safety Resolve 2018-112019-10-16 Radha hospitaliza d 12-13 14:28:00 [place] tion 10:23: RN 00 Medication oral med Meds Resolve 2018-112019-11-17 Radha assistance d 12-16 08:35:00 [place] required 14:28: RN 00 Safety knowledge/s Safety Resolve 2018-112019-11-14 Evelyn kill d 12-17 08:30:00 [place] deficit: pt 10:00: [id number] 00 Safety risk for Safety Resolve 2018-112019-10-31 Evelyn hospitaliza d 12-17 14:05:00 [place] tion 10:00: [id number] 00 Social knowledge/s RUSLAN: Active 2018-11 Evelyn Services kill Social 12-17 [place] deficit - Services 10:00: [id number] pt 00 Safety can be left Safety Active 2018-11 Shanelle alone for 12-22 Ernest[place] only short 12:04: [id number] periods 00 Safety fire risk Safety Resolve [...] self-care Activity Resolve 2018-112019-10-31 Radha deficit d 01-01 14:05:00 [place] 14:05: RN 00 Safety fall risk Safety Resolve 2018-112019-10-31 Radha factor d 2- 14:05:00 [place] present 14:05: RN 00 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 PT/OT: Active 2018-11 Georges urance rdination Balance/En 01-01 Cory, deficit durance 15:00: PT 00 [id number] Gait/Locomo gait PT/OT: Active 2018-11 Georges tion deficit Gait/Locom 01-01 Cory, problems otion 15:00: PT 00 660771-4 Elimination urinary Eliminatio Resolve 2018-112019-11-03 Radha incontinenc n d 2- 13:20:00 [place] e 13:20: RN 00 Safety fall risk Safety Resolve 2018-112019-11-06 Gisele Snyder factor d 2- 13:30:00 present 13:43: 55 Safety risk for Safety Resolve 2018-112019-11-06 Gisele Snyder hospitaliza d 2-10 13:30:00 tion 13:43: 55 Elimination urinary Eliminatio Resolve 2018-112019-11-06 Radha incontinenc n d 2-12 13:30:00 [place] e 13:30: RN 00 Safety risk for Safety Resolve 2018-112019-11-14 Evelyn hospitaliza d 2- 08:30:00 [place] tion 08:30: [id number] 00 Elimination urinary Eliminatio Active 2018-11 Radha incontinenc n 2- [place] e 08:35: RN 00 Safety risk for Safety Resolve 2018-112019-11-17 Radha hospitaliza d 2- 08:35:00 [place] tion 08:35: RN 00 Allergies, Adverse Reactions, Alerts Allergy Allergy Type Status Severity Reaction(s) Onset Inactive Treating Comments Name Date Date Clinician codeine Base Active Unknown Reaction 2019-03 [place] Ingredient Quan Medications Ordered Filled Start Stop [...] Yes Jander Unknown Unknown gram/dose gram/dose 12-02 ,Cinthia oral powder oral powder ipratropium ipratropium 2018-11 Yes Jander Unknown Unknown -albuterol -albuterol - ,Cinthia 0.5 [...] Unknown e 40 mg e 40 mg 01-01- ,Cinthia tablet,manny tablet,manny yed release yed release cefPODOXime cefPODOXime 2018-11- Yes Jander Unknown Unknown 200 mg 200 mg 01-01 ,Cinthia tablet tablet pantoprazol pantoprazol 2018-11 Yes Jander Unknown Unknown e 40 mg e 40 mg 01-01 MD,Cinthia tablet,manny tablet,manny yed release yed release predniSONE predniSONE 2018-11- Yes Jander Unknown Unknown 10 mg 10 mg 01-05 ,Cinthia tablet tablet predniSONE predniSONE 2018-11 Yes Jander Unknown Unknown 10 mg 10 mg 2-20 ,Cinthia tablet tablet Vital Signs Vital Name Observation Time Observation Value Comments SYSTOLIC mm[Hg] 2019-11-17 18:09:30 148 mm[Hg] mm[Hg] Method: Sit DIASTOLIC mm[Hg] 2019-11-17 18:09:30 78 mm[Hg] mm[Hg] Method: Sit PULSE 2019-11-17 18:09:30 80 /min /min RESP RATE 2019-11-17 18:09:30 20 /min /min TEMP 2019-11-17 18:09:30 98.4 [degF] Procedures This patient has no known procedures. Results This patient has no known results.
--- OUTSIDE RECORDS SUMMARY | 2019-12-01 08:13 | XMS REPORT ---
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 Radha (current) (current) [place] use of use of RN aspirin aspirin custodial custodial Diagnosis Active Radha (current) (current) [place] use [...] Resolve 2018-112019-10-13 Freida pain d 12-02 10:23:00 [place] 10:30: [id number] 00 Respiratory dyspnea Respirator Active 2018-11 Freida present y 12-02 [place] 10:30: [id number] 00 Respiratory oxygen Respirator Active 2018-11 Freida treatments y 12-02 [place] in home 10:30: [id number] 00 Respiratory knowledge/s Respirator Active 2018-11 Freida kill y 12-02 [place] deficit: pt 10:30: [id number] 00 Respiratory knowledge/s Respirator Active 2018-11 Freida kill y 12-02 [place] deficit: cg 10:30: [id number] 00 Respiratory lung sounds Respirator Active 2018-11 Freida deficit y 12-02 [place] 10:30: [id number] 00 Respiratory smoker Respirator Resolve 2018-112019-11-21 Freida y d 12-02 10:30:00 [place] 10:30: [id number] 00 Respiratory nebulizer Respirator Active 2018-11 Freida treatment y 12-02 [place] in home 10:30: [id number] 00 Endo/Benjamin anti-coagul Endo/Benjamin Resolve 2018-112019-10-06 Freida ation d 12-02 13:19:00 [place] therapy 10:30: [id number] 00 Sensory impaired Sensory Active 2018-11 Freida hearing 12-02 [place] 10:30: [id number] 00 Integument skin Integument Resolve 2018-112019-10-08 Freida integrity d 12-02 14:40:00 [place] risk 10:30: [id number] 00 Nutrition nutritional Nutrition Resolve 2018-112019-10-13 Freida restriction d 12-02 10:23:00 [place] s 10:30: [id number] 00 Elimination urinary Eliminatio Resolve 2018-112019-10-06 Freida incontinenc n d 12-02 13:19:00 [place] e 10:30: [id number] 00 Neuro confusion Neuro/Emot Active 2018-11 Freida present ion 12-02 [place] 10:30: [id number] 00 Neuro anxiety Neuro/Emot Active 2018-11 Freida present ion 12-02 [place] 10:30: [id number] 00 Neuro depressive Neuro/Emot Active 2018-11 Freida feelings ion 12-02 [place] present 10:30: [id number] 00 Neuro impaired Neuro/Emot Active 2018-11 Freida decision-ma ion 12-02 [place] claritza 10:30: [id number] 00 Activity ADL Activity Active 2018-11 Freida assistance 12-02 [place] required 10:30: [id number] 00 Activity self-care Activity Resolve 2018-112019-10-06 Freida deficit d 12-02 13:19:00 [place] 10:30: [id number] 00 Safety cannot be Safety Active 2018-11 Freida left alone 12-02 [place] 10:30: [id number] 00 Safety knowledge/s Safety Resolve 2018-112019-10-16 Freida kill d 12-02 14:28:00 [place] deficit: pt 10:30: [id number] 00 Safety fall risk Safety Resolve 2018-112019-10-10 Freida factor d 12-02 14:55:00 [place] present 10:30: [id number] 00 Safety risk for Safety Resolve 2018-112019-10-10 Freida hospitaliza d 12-02 14:55:00 [place] tion 10:30: [id number] 00 Medication oral med Meds Resolve 2018-112019-10-13 Freida assistance d 12-02 10:23:00 [place] required 10:30: [id number] 00 Musculoskel transfer Musculoske Resolve 2018-112019-10-13 Freida etal assistance letal d 12-02 10:23:00 [place] required 10:30: [id number] 00 Musculoskel requires Musculoske Resolve 2018-112019-10-13 Freida etal human letal d 12-02 10:23:00 [place] assist to 10:30: [id number] leave home 00 Cardio edema Cardiovasc Resolve 2018-112019-11-11 Radha ular d 12-10 12:38:00 [place] 14:55: RN 00 Safety risk for Safety Resolve 2018-112019-10-16 Radha hospitaliza d 12-13 14:28:00 [place] tion 10:23: RN 00 Medication oral med Meds Resolve 2018-112019-11-17 Radha assistance d 12-16 08:35:00 [place] required 14:28: RN 00 Safety knowledge/s Safety Resolve 2018-112019-11-14 Evelyn kill d 12-17 08:30:00 [place] deficit: pt 10:00: [id number] 00 Safety risk for Safety Resolve 2018-112019-10-31 Evelyn hospitaliza d 12-17 14:05:00 [place] tion 10:00: [id number] 00 Social knowledge/s RUSLAN: Active 2018-11 Evelyn Services kill Social 12-17 [place] deficit - Services 10:00: [id number] pt 00 Safety can be left Safety Active 2018-11 Shanelle alone for 12-22 Ernestina only short 12:04: [id number] periods 00 Safety fire risk Safety Resolve [...] 14:05:00 [place] present 14:05: RN 00 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 PT/OT: Active 2018-11 Georges urance rdination Balance/En - Cory, deficit durance 15:00: PT 00 [id number] Gait/Locomo gait PT/OT: Active 2018-11 Georges tion deficit Gait/Locom - Cory, problems otion 15:00: PT 00 [id number] Elimination urinary Eliminatio Resolve 2018-112019-11-03 Radha incontinenc [...] hospitaliza d 2- 08:30:00 [place] tion 08:30: [id number] 00 Elimination urinary Eliminatio Resolve 2018-112019-11-21 Radha incontinenc n d 2- 10:30:00 [place] e 08:35: RN 00 Safety risk for Safety Resolve 2018-112019-11-17 Radha hospitaliza d 2- 08:35:00 [place] tion 08:35: RN 00 Safety risk for Safety Active 2018-11 Georges hospitaliza 01-21 Cory tion 09:15: PT 00 [id number] Medication oral med Meds Resolve 2018-112019-11-21 Martha assistance d 01-22 10:30:00 [place] required 10:30: 00 Medication inhalant Meds Resolve 2018-112019-11-21 Martha med d 01-22 10:30:00 [place] assistance 10:30: required 00 Allergies, Adverse Reactions, Alerts Allergy Allergy Type Status Severity Reaction(s) Onset Inactive Treating Comments Name Date Date Clinician codeine Base Active Unknown Reaction 2019-03 [place] Ingredient Quan Medications Ordered Filled Start Stop [...] Unknown Unknown Diskus 50 Diskus 50 12-02 MD,Cinthia mcg/dose mcg/dose powder for powder for inhalation inhalation Incruse Incruse 2018-11 Yes Jander Unknown Unknown Ellipta Ellipta 12-02 MD,Cinthia 62.5 62.5 mcg/actuati mcg/actuati on powder [...] Dose 81 mg Dose 81 mg 12-02 MD,Cinthia tablet,manny tablet,manny yed release yed release amLODIPine amLODIPine 2018-11 Yes Jander Unknown Unknown 10 mg 10 mg - MD,Cinthia tablet tablet losartan losartan 2018-11 Yes Jander Unknown Unknown 100 mg 100 mg - MD,Cinthia tablet tablet cyanocobala cyanocobala 2018-11 Yes Jander Unknown Unknown min min - ,Cinthia (vitamin (vitamin B-12) 2,500 B-12) 2,500 mcg [...] Unknown 20 mg 20 mg 12-10 ,Cinthia capsule,del capsule,del ayed ayed release release [...] Observation Time Observation Value Comments SYSTOLIC mm[Hg] 2019-11-21 18:09:34 132 mm[Hg] mm[Hg] Method: Sit DIASTOLIC mm[Hg] 2019-11-21 18:09:34 78 mm[Hg] mm[Hg] Method: Sit PULSE 2019-11-21 18:09:34 78 /min /min RESP RATE 2019-11-21 18:09:34 20 /min /min TEMP 2019-11-21 18:09:34 96.9 [degF] Procedures This patient has no known procedures. Results This patient has no known results.
--- OUTSIDE RECORDS SUMMARY | 2019-12-01 08:13 | XMS REPORT ---
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 Radha (current) (current) [place] use of use of RN aspirin aspirin skilled nursing skilled nursing Diagnosis Active Radha (current) (current) [place] use [...] Resolve 2018-112019-10-13 [place] pain d 12-02 10:23:00 [place] 10:30: [id number] 00 Respiratory dyspnea Respirator Active 2018-11 Fre[place] present y 12-02 [place] 10:30: [id number] 00 Respiratory oxygen Respirator Active 2018-11 Freida treatments y 12-02 [place] in home 10:30: [id number] 00 Respiratory knowledge/s Respirator Active 2018-11 Fre[place] kill y 12-02 [place] deficit: pt 10:30: [id number] 00 Respiratory knowledge/s Respirator Active 2018-11 [place] kill y 12-02 [place] deficit: cg 10:30: [id number] 00 Respiratory lung sounds Respirator Active 2018-11 [place] deficit y 12-02 [place] 10:30: [id number] 00 Respiratory smoker Respirator Active 2018-11 Freida y 12-02 [place] 10:30: [id number] 00 Respiratory nebulizer Respirator Active 2018-11 Fre[place] treatment y 12-02 [place] in home 10:30: [id number] 00 Endo/Benjamin anti-coagul Endo/Benjamin Resolve 2018-112019-10-06 Freida ation d 12-02 13:19:00 [place] therapy 10:30: [id number] 00 Sensory impaired Sensory Active 2018-11 Fre[place] hearing 12-02 [place] 10:30: [id number] 00 Integument skin Integument Resolve 2018-112019-10-08 Freida integrity d 12-02 14:40:00 [place] risk 10:30: [id number] 00 Nutrition nutritional Nutrition Resolve 2018-112019-10-13 [place] restriction d 12-02 10:23:00 [place] s 10:30: [id number] 00 Elimination urinary Eliminatio Resolve 2018-112019-10-06 Fre[place] incontinenc n d 12-02 13:19:00 [place] e 10:30: [id number] 00 Neuro confusion Neuro/Emot Active 2018-11 Fre[place] present ion 12-02 [place] 10:30: [id number] 00 Neuro anxiety Neuro/Emot Active 2018-11 Fre[place] present ion 12-02 [place] 10:30: [id number] 00 Neuro depressive Neuro/Emot Active 2018-11 Freida feelings ion 12-02 [place] present 10:30: [id number] 00 Neuro impaired Neuro/Emot Active 2018-11 Fre[place] decision-ma ion 12-02 [place] claritza 10:30: [id number] 00 Activity ADL Activity Active 2018-11 Fre[place] assistance 12-02 [place] required 10:30: [id number] 00 Activity self-care Activity Resolve 2018-112019-10-06 [place] deficit d 12-02 13:19:00 [place] 10:30: [id number] 00 Safety cannot be Safety Active 2018-11 Freida left alone 12-02 [place] 10:30: [id number] 00 Safety knowledge/s Safety Resolve 2018-112019-10-16 Fre[place] kill d 12-02 14:28:00 [place] deficit: pt 10:30: [id number] 00 Safety fall risk Safety Resolve 2018-112019-10-10 Freida factor d 12-02 14:55:00 [place] present 10:30: [id number] 00 Safety risk for Safety Resolve 2018-112019-10-10 Freida hospitaliza d 12-02 14:55:00 [place] tion 10:30: [id number] 00 Medication oral med Meds Resolve 2018-112019-10-13 Fre[place] assistance d 12-02 10:23:00 [place] required 10:30: [id number] 00 Musculoskel transfer Musculoske Resolve 2018-112019-10-13 Freida etal assistance letal d 12-02 10:23:00 [place] required 10:30: [id number] 00 Musculoskel requires Musculoske Resolve 2018-112019-10-13 Freida etal human letal d 12-02 10:23:00 [place] assist to 10:30: [id number] leave home 00 Cardio edema Cardiovasc Resolve 2018-112019-11-11 Radha ular d 12-10 12:38:00 [place] 14:55: RN 00 Safety risk for Safety Resolve 2018-112019-10-16 Radha hospitaliza d 12-13 14:28:00 [place] tion 10:23: RN 00 Medication oral med Meds Resolve 2018-112019-11-17 Radha assistance d 12-16 08:35:00 [place] required 14:28: RN 00 Safety knowledge/s Safety Resolve 2018-112019-11-14 [place] kill d 12-17 08:30:00 [place] deficit: pt 10:00: [id number] 00 Safety risk for Safety Resolve 2018-112019-10-31 Evelyn hospitaliza d 12-17 14:05:00 [place] tion 10:00: [id number] 00 Social knowledge/s RUSLAN: Active 2018-11 Evelyn Services kill Social 12-17 [place] deficit - Services 10:00: [id number] pt 00 Safety can be left Safety Active 2018-11 Shanelle alone for 12-22 [place] only short 12:04: [id number] periods 00 Safety fire risk Safety Resolve [...] 14:05:00 [place] present 14:05: RN 00 Balance/End balance/cook mess PT/OT: Active 2018-11 Georges urance rdination Balance/En 01-01 [place], deficit durance 15:00: PT 00 [id number] Gait/Locomo gait PT/OT: Active 2018-11 Georges tion deficit Gait/Locom 01-01 [place], problems otion 15:00: PT 00 [id number] Elimination urinary Eliminatio Resolve 2018-112019-11-03 Radha incontinenc [...] hospitaliza d 2-13 08:30:00 [place] tion 08:30: [id number] 00 Elimination urinary Eliminatio Active 2018-11 Radha incontinenc n 2- [place] e 08:35: RN 00 Safety risk for Safety Resolve 2018-112019-11-17 Radha hospitaliza d 2-23 08:35:00 [place] tion 08:35: RN 00 Safety risk for Safety Active 2018-11 Georges hospitaliza - [place], tion 09:15: PT 00 [id number] Allergies, Adverse Reactions, Alerts Allergy Allergy Type Status Severity Reaction(s) Onset Inactive Treating Comments Name Date Date Clinician codeine Base Active Unknown Reaction 2019-03 [place] Ingredient Unknown - Quan Medications Ordered Filled Start Stop Current Ordering Indication Dosage Frequency Signature Comments Components Medication Medication Date Date Medication? Clinician (SIG) Name Name FLUoxetine FLUoxetine 2018-11 Yes Catrachito Unknown Unknown 20 mg 20 mg 1- ,Cinthia capsule capsule atorvastati atorvastati 2018-11 Yes [...] Unknown Dose 81 mg Dose 81 mg - ,Cinthia tablet,manny tablet,manny yed release yed release [...] tablet,manny yed release yed release predniSONE predniSONE 2019-1 2019- Yes Jander Unknown Unknown 10 mg 10 mg 2-10 12-20 MD,Cinthia tablet tablet predniSONE predniSONE 2018-11 Yes Jander Unknown Unknown 10 mg 10 mg 2-20 MD,Cinthia tablet tablet Vital Signs Vital Name Observation Time Observation Value Comments SYSTOLIC mm[Hg] 2019-11-20 18:09:33 144 mm[Hg] mm[Hg] Method: Sit DIASTOLIC mm[Hg] 2019-11-20 18:09:33 76 mm[Hg] mm[Hg] Method: Sit PULSE 2019-11-20 18:09:33 75 /min /min RESP RATE 2019-11-20 18:09:33 20 /min /min TEMP 2019-11-20 18:09:33 97.5 [degF] Procedures This patient has no known procedures. Results This patient has no known results.
--- OUTSIDE RECORDS SUMMARY | 2019-12-01 08:13 | XMS REPORT ---
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 Diagnosis Active Radha (current) (current) [place] use of use of RN aspirin aspirin senior care senior care Diagnosis Active Radha (current) (current) [place] use [...] Resolve 2018-112019-10-13 [place] pain d 12-02 10:23:00 [place] 10:30: [id number] 00 Respiratory dyspnea Respirator Active 2018-11 Freida present y 12-02 [place] 10:30: [id number] 00 Respiratory oxygen Respirator Active 2018-11 Freida treatments y 12-02 [place] in home 10:30: [id number] 00 Respiratory knowledge/s Respirator Active 2018-11 Fre[place] kill y 12-02 [place] deficit: pt 10:30: [id number] 00 Respiratory knowledge/s Respirator Active 2018-11 Fre[place] kill y 12-02 [place] deficit: cg 10:30: [id number] 00 Respiratory lung sounds Respirator Active 2018-11 Fre[place] deficit y 12-02 [place] 10:30: [id number] 00 Respiratory smoker Respirator Active 2018-11 Freida y 12-02 [place] 10:30: [id number] 00 Respiratory nebulizer Respirator Active 2018-11 Fre[place] treatment y 12-02 [place] in home 10:30: [id number] 00 Endo/Benjamin anti-coagul Endo/Benjamin Resolve 2018-112019-10-06 Fre[place] ation d 12-02 13:19:00 [place] therapy 10:30: [id number] 00 Sensory impaired Sensory Active 2018-11 Fre[place] hearing 12-02 [place] 10:30: [id number] 00 Integument skin Integument Resolve 2018-112019-10-08 Freida integrity d 12-02 14:40:00 [place] risk 10:30: [id number] 00 Nutrition nutritional Nutrition Resolve 2018-112019-10-13 Fre[place] restriction d 12-02 10:23:00 [place] s 10:30: [id number] 00 Elimination urinary Eliminatio Resolve 2018-112019-10-06 Freida incontinenc n d 12-02 13:19:00 [place] e 10:30: [id number] 00 Neuro confusion Neuro/Emot Active 2018-11 Freida present ion 12-02 [place] 10:30: [id number] 00 Neuro anxiety Neuro/Emot Active 2018-11 Freida present ion 12-02 [place] 10:30: [id number] 00 Neuro depressive Neuro/Emot Active 2018-11 Freida feelings ion 12-02 [place] present 10:30: [id number] 00 Neuro impaired Neuro/Emot Active 2018-11 Freida decision-ma ion 12-02 [place] claritza 10:30: [id number] 00 Activity ADL Activity Active 2018-11 Freida assistance 12-02 [place] required 10:30: [id number] 00 Activity self-care Activity Resolve 2018-112019-10-06 [place] deficit d 12-02 13:19:00 [place] 10:30: [id number] 00 Safety cannot be Safety Active 2018-11 Freida left alone 12-02 [place] 10:30: [id number] 00 Safety knowledge/s Safety Resolve 2018-112019-10-16 Fre[place] kill d 12-02 14:28:00 [place] deficit: pt 10:30: [id number] 00 Safety fall risk Safety Resolve 2018-112019-10-10 Freida factor d 12-02 14:55:00 [place] present 10:30: [id number] 00 Safety risk for Safety Resolve 2018-112019-10-10 Freida hospitaliza d 12-02 14:55:00 [place] tion 10:30: [id number] 00 Medication oral med Meds Resolve 2018-112019-10-13 Freida assistance d 12-02 10:23:00 [place] required 10:30: [id number] 00 Musculoskel transfer Musculoske Resolve 2018-112019-10-13 Freida etal assistance letal d 12-02 10:23:00 [place] required 10:30: [id number] 00 Musculoskel requires Musculoske Resolve 2018-112019-10-13 Freida etal human letal d 12-02 10:23:00 [place] assist to 10:30: [id number] leave home 00 Cardio edema Cardiovasc Resolve 2018-112019-11-11 Radha ular d 12-10 12:38:00 [place] 14:55: RN 00 Safety risk for Safety Resolve 2018-112019-10-16 Radha hospitaliza d 12-13 14:28:00 [place] tion 10:23: RN 00 Medication oral med Meds Resolve 2018-112019-11-17 Radha assistance d 12-16 08:35:00 [place] required 14:28: RN 00 Safety knowledge/s Safety Resolve 2018-112019-11-14 Evelyn kill d 12-17 08:30:00 [place] deficit: pt 10:00: [id number] 00 Safety risk for Safety Resolve 2018-112019-10-31 Evelyn hospitaliza d 12-17 14:05:00 [place] tion 10:00: [id number] 00 Social knowledge/s RUSLAN: Active 2018-11 Evelyn Services kill Social 12-17 [place] deficit - Services 10:00: [id number] pt 00 Safety can be left Safety Active 2018-11 Shanelle alone for 12-22 [place] only short 12:04: [id number] periods 00 Safety fire risk Safety Resolve [...] 14:05:00 [place] present 14:05: RN 00 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/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 PT/OT: Active 2018-11 Georges urance rdination Balance/En 01-01 [place], deficit durance 15:00: PT 00 [id number] Gait/Locomo gait PT/OT: Active 2018-11 Georges tion deficit Gait/Locom 01-01 [place], problems otion 15:00: PT 00 [id number] Elimination urinary Eliminatio Resolve 2018-112019-11-03 Radha incontinenc [...] hospitaliza d 2-13 08:30:00 [place] tion 08:30: [id number] 00 Elimination urinary Eliminatio Active 2018-11 Radha incontinenc n 2- [place] e 08:35: RN 00 Safety risk for Safety Resolve 2018-112019-11-17 Radha hospitaliza d 2-23 08:35:00 [place] tion 08:35: RN 00 Safety risk for Safety Active 2018-11 Georges hospitaliza - [place], tion 09:15: PT 00 [id number] Allergies, Adverse Reactions, Alerts Allergy Allergy Type Status Severity Reaction(s) Onset Inactive Treating Comments Name Date Date Clinician codeine Base Active Unknown Reaction 2019-03 [place] Ingredient Unknown - Quan Medications Ordered Filled [...] Unknown Unknown 10 mg 10 mg 2-10 12- MD,Cinthia tablet tablet predniSONE predniSONE 2018-11 Yes Jander Unknown Unknown 10 mg 10 mg 2- MD,Cinthia tablet tablet Tylenol Tylenol 2018-11 Yes [...]
--- OUTSIDE RECORDS SUMMARY | 2019-12-01 08:13 | XMS REPORT ---
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 (current) (current) [place] use of use of RN non-steroid non-steroid al al anti-inflam anti-inflam matories matories (NSAID) (NSAID) Dependence Dependence Diagnosis Active Radha on on [place] wheelchair wheelchair RN Personal Personal Diagnosis Active Radha history of history of [place] irradiation irradiation RN Pain frequent Pain Mgmt Resolve 2018-112019-10-13 Freida pain d 12-02 10:23:00 [place] 10:30: [id number] 00 Respiratory dyspnea Respirator Active 2018-11 Freida present 12-02 [place] 10:30: [id number] 00 Respiratory oxygen Respirator Active 2018-11 Freida treatments 12-02 [place] in home 10:30: [id number] 00 Respiratory knowledge/s Respirator Active 2018-11 Fre[place] kill y 12-02 [place] deficit: pt 10:30: [id number] 00 Respiratory knowledge/s Respirator Active 2018-11 Fre[place] kill y 12-02 [place] deficit: cg 10:30: [id number] 00 Respiratory lung sounds Respirator Active 2018-11 [place] deficit y 12-02 [place] 10:30: [id number] 00 Respiratory smoker Respirator Resolve 2018-112019-11-21 Freida y d 12-02 10:30:00 [place] 10:30: [id number] 00 Respiratory nebulizer Respirator Active 2018-11 Freida treatment y 12-02 [place] in home 10:30: [id number] 00 Endo/Benjamin anti-coagul Endo/Benjamin Resolve 2018-112019-10-06 [place] ation d 12-02 13:19:00 [place] therapy 10:30: [id number] 00 Sensory impaired Sensory Active 2018-11 Fre[place] hearing 12-02 [place] 10:30: [id number] 00 Integument skin Integument Resolve 2018-112019-10-08 Freida integrity d 12-02 14:40:00 [place] risk 10:30: [id number] 00 Nutrition nutritional Nutrition Resolve 2018-112019-10-13 Freida restriction d 12-02 10:23:00 [place] s 10:30: [id number] 00 Elimination urinary Eliminatio Resolve 2018-112019-10-06 Fre[place] incontinenc n d 12-02 13:19:00 [place] e 10:30: [id number] 00 Neuro confusion Neuro/Emot Active 2018-11 Fre[place] present ion 12-02 [place] 10:30: [id number] 00 Neuro anxiety Neuro/Emot Active 2018-11 Freida present ion 12-02 [place] 10:30: [id number] 00 Neuro depressive Neuro/Emot Active 2018-11 Freida feelings ion 12-02 [place] present 10:30: [id number] 00 Neuro impaired Neuro/Emot Active 2018-11 Fre[place] decision-ma ion 12-02 [place] claritza 10:30: [id number] 00 Activity ADL Activity Active 2018-11 Freida assistance 12-02 [place] required 10:30: [id number] 00 Activity self-care Activity Resolve 2018-112019-10-06 [place] deficit d 12-02 13:19:00 [place] 10:30: [id number] 00 Safety cannot be Safety Active 2018-11 Freida left alone 12-02 [place] 10:30: [id number] 00 Safety knowledge/s Safety Resolve 2018-112019-10-16 Fre[place] kill d 12-02 14:28:00 [place] deficit: pt 10:30: [id number] 00 Safety fall risk Safety Resolve 2018-112019-10-10 Freida factor d 12-02 14:55:00 [place] present 10:30: [id number] 00 Safety risk for Safety Resolve 2018-112019-10-10 Freida hospitaliza d 12-02 14:55:00 [place] tion 10:30: [id number] 00 Medication oral med Meds Resolve 2018-112019-10-13 Freida assistance d 12-02 10:23:00 [place] required 10:30: [id number] 00 Musculoskel transfer Musculoske Resolve 2018-112019-10-13 Freida etal assistance letal d 12-02 10:23:00 [place] required 10:30: [id number] 00 Musculoskel requires Musculoske Resolve 2018-112019-10-13 Freida etal human letal d 12-02 10:23:00 [place] assist to 10:30: [id number] leave home 00 Cardio edema Cardiovasc Resolve 2018-112019-11-11 Radha ular d 12-10 12:38:00 [place] 14:55: RN 00 Safety risk for Safety Resolve 2018-112019-10-16 Radha hospitaliza d 12-13 14:28:00 [place] tion 10:23: RN 00 Medication oral med Meds Resolve 2018-112019-11-17 Radha assistance d 12-16 08:35:00 [place] required 14:28: RN 00 Safety knowledge/s Safety Resolve 2018-112019-11-14 Evelyn kill d 12-17 08:30:00 [place] deficit: pt 10:00: [id number] 00 Safety risk for Safety Resolve 2018-112019-10-31 Evelyn hospitaliza d 12-17 14:05:00 [place] tion 10:00: [id number] 00 Social knowledge/s RUSLAN: Active 2018-11 Evelyn Services kill Social 12-17 [place] deficit - Services 10:00: [id number] pt 00 Safety can be left Safety Active 2018-11 Shanelle alone for 12-22 Ernest[place] only short 12:04: [id number] periods 00 Safety fire risk Safety Resolve [...] 14:05:00 [place] present 14:05: RN 00 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 PT/OT: Active 2018-11 Georges urance rdination Balance/En 01-01 [place], deficit durance 15:00: PT 00 [id number] Gait/Locomo gait PT/OT: Active 2018-11 Georges tion deficit Gait/Locom 01-01 [place], problems otion 15:00: PT 00 [id number] Elimination urinary Eliminatio Resolve 2018-112019-11-03 Radha incontinenc [...] hospitaliza d 2- 08:30:00 [place] tion 08:30: [id number] 00 Elimination urinary Eliminatio Resolve 2018-112019-11-21 Radha incontinenc n d - 10:30:00 [place] e 08:35: RN 00 Safety risk for Safety Resolve 2018-112019-11-17 Radha hospitaliza d 01-18 08:35:00 [place] tion 08:35: RN 00 Safety risk for Safety Resolve 2018-112019-11-24 Georges hospitaliza d 01-21 08:45:00 [place] 09:15: PT 00 [id number] Medication oral med Meds Resolve 2018-112019-11-27 [place] assistance d 01-22 08:35:00 [place] required 10:30: 00 Medication inhalant Meds Resolve 2018-112019-11-27 Martha med d 01-22 08:35:00 [place] assistance 10:30: required 00 Elimination urinary Eliminatio Resolve 2018-112019-11-24 Radha incontinenc n d 08:45:00 [place] e 08:45: RN 00 Nutrition nutritional Nutrition Active 2018-11 Georges restriction Cory s 13:15: PT 00 [id number] Safety risk for Safety Unknown 2018-11 Georges hospitaliza dong [place] 13:15: PT 00 [id number] Pain frequent Pain Mgmt Active Radha pain [...] Clinician codeine Base Active Unknown Reaction 2019-03 [place] Ingredient Unknown -08 Quan Medications Ordered Filled [...]
--- OUTSIDE RECORDS SUMMARY | 2019-12-01 08:13 | XMS REPORT ---
[...] [facility] Diagnosis 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 (current) (current) [place] use of use of RN aspirin aspirin FDC FDC Diagnosis Active Radha (current) (current) [place] use [...] Resolve 2018-112019-10-13 Freida pain d 12-02 10:23:00 [place] 10:30: [id number] 00 Respiratory dyspnea Respirator Active 2018-11 Freida present y 12-02 [place] 10:30: [id number] 00 Respiratory oxygen Respirator Active 2018-11 Freida treatments y 12-02 [place] in home 10:30: [id number] 00 Respiratory knowledge/s Respirator Active 2018-11 Freida kill y 12-02 [place] deficit: pt 10:30: [id number] 00 Respiratory knowledge/s Respirator Active 2018-11 Freida kill y 12-02 [place] deficit: cg 10:30: [id number] 00 Respiratory lung sounds Respirator Active 2018-11 Fre[place] deficit y 12-02 [place] 10:30: [id number] 00 Respiratory smoker Respirator Active 2018-11 Freida y 12-02 [place] 10:30: [id number] 00 Respiratory nebulizer Respirator Active 2018-11 Freida treatment y 12-02 [place] in home 10:30: [id number] 00 Endo/Benjamin anti-coagul Endo/Benjamin Resolve 2018-112019-10-06 Freida ation d 12-02 13:19:00 [place] therapy 10:30: [id number] 00 Sensory impaired Sensory Active 2018-11 Freida hearing 12-02 [place] 10:30: [id number] 00 Integument skin Integument Resolve 2018-112019-10-08 Freida integrity d 12-02 14:40:00 [place] risk 10:30: [id number] 00 Nutrition nutritional Nutrition Resolve 2018-112019-10-13 Freida restriction d 12-02 10:23:00 [place] s 10:30: [id number] 00 Elimination urinary Eliminatio Resolve 2018-112019-10-06 Freida incontinenc n d 12-02 13:19:00 [place] e 10:30: [id number] 00 Neuro confusion Neuro/Emot Active 2018-11 Freida present ion 12-02 [place] 10:30: [id number] 00 Neuro anxiety Neuro/Emot Active 2018-11 Freida present ion 12-02 [place] 10:30: [id number] 00 Neuro depressive Neuro/Emot Active 2018-11 Freida feelings ion 12-02 [place] present 10:30: [id number] 00 Neuro impaired Neuro/Emot Active 2018-11 Freida decision-ma ion 12-02 [place] claritza 10:30: [id number] 00 Activity ADL Activity Active 2018-11 Freida assistance 12-02 [place] required 10:30: [id number] 00 Activity self-care Activity Resolve 2018-112019-10-06 Freida deficit d 12-02 13:19:00 [place] 10:30: [id number] 00 Safety cannot be Safety Active 2018-11 Freida left alone 12-02 [place] 10:30: [id number] 00 Safety knowledge/s Safety Resolve 2018-112019-10-16 Freida kill d 12-02 14:28:00 [place] deficit: pt 10:30: [id number] 00 Safety fall risk Safety Resolve 2018-112019-10-10 Freida factor d 12-02 14:55:00 [place] present 10:30: [id number] 00 Safety risk for Safety Resolve 2018-112019-10-10 Freida hospitaliza d 12-02 14:55:00 [place] tion 10:30: [id number] 00 Medication oral med Meds Resolve 2018-112019-10-13 Freida assistance d 12-02 10:23:00 [place] required 10:30: [id number] 00 Musculoskel transfer Musculoske Resolve 2018-112019-10-13 Freida etal assistance letal d 12-02 10:23:00 [place] required 10:30: [id number] 00 Musculoskel requires Musculoske Resolve 2018-112019-10-13 Freida etal human letal d 12-02 10:23:00 [place] assist to 10:30: [id number] leave home 00 Cardio edema Cardiovasc Resolve 2018-112019-11-11 Radha ular d 12-10 12:38:00 [place] 14:55: RN 00 Safety risk for Safety Resolve 2018-112019-10-16 Radha hospitaliza d 12-13 14:28:00 [place] tion 10:23: RN 00 Medication oral med Meds Resolve 2018-112019-11-17 Radha assistance d 12-16 08:35:00 [place] required 14:28: RN 00 Safety knowledge/s Safety Resolve 2018-112019-11-14 Evelyn kill d 12-17 08:30:00 [place] deficit: pt 10:00: [id number] 00 Safety risk for Safety Resolve 2018-112019-10-31 Evelyn hospitaliza d 12-17 14:05:00 [place] tion 10:00: [id number] 00 Social knowledge/s RUSLAN: Active 2018-11 Evelyn Services kill Social 12-17 [place] deficit - Services 10:00: [id number] pt 00 Safety can be left Safety Active 2018-11 Shanelle alone for 12-22 Ernestina only short 12:04: [id number] periods 00 Safety fire risk Safety Resolve [...] 14:05:00 [place] present 14:05: RN 00 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 PT/OT: Active 2018-11 Georges urance rdination Balance/En 01-01 [place], deficit durance 15:00: PT 00 [id number] Gait/Locomo gait PT/OT: Active 2018-11 Georges tion deficit Gait/Locom 01-01 [place], problems otion 15:00: PT 00 555506-6 Elimination urinary Eliminatio Resolve 2018-112019-11-03 Radha incontinenc [...] hospitaliza d 2-13 08:30:00 [place] tion 08:30: [id number] 00 Elimination urinary Eliminatio Active 2018-11 Radha incontinenc n 2- [place] e 08:35: RN 00 Safety risk for Safety Resolve 2018-112019-11-17 Radha hospitaliza d 2-23 08:35:00 [place] tion 08:35: RN 00 Safety risk for Safety Active 2018-11 Georges hospitaliza - [place], tion 09:15: PT 00 [id number] Allergies, Adverse Reactions, Alerts Allergy Allergy Type Status Severity Reaction(s) Onset Inactive Treating Comments Name Date Date Clinician codeine Base Active Unknown Reaction 2019-03 [place] Ingredient Unknown - Quan Medications Ordered Filled [...]
--- OUTSIDE RECORDS SUMMARY | 2019-12-01 08:14 | XMS REPORT ---
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 (current) (current) [place] use of use of RN aspirin aspirin senior living senior living Diagnosis Active Radha (current) (current) [place] use [...] Resolve 2018-112019-10-13 Freida pain d 12-02 10:23:00 Hope 10:30: [id number] 00 Respiratory dyspnea Respirator Active 2018-11 Freida present y 12-02 Hope 10:30: [id number] 00 Respiratory oxygen Respirator Active 2018-11 Freida treatments y 12-02 Hope in home 10:30: [id number] 00 Respiratory knowledge/s Respirator Active 2018-11 Freida kill y 12-02 Hope deficit: pt 10:30: [id number] 00 Respiratory knowledge/s Respirator Active 2018-11 Freida kill y 12-02 [place] deficit: cg 10:30: [id number] 00 Respiratory lung sounds Respirator Active 2018-11 Freida deficit y 12-02 Hope 10:30: [id number] 00 Respiratory smoker Respirator Active 2018-11 Freida y 12-02 Hope 10:30: [id number] 00 Respiratory nebulizer Respirator Active 2018-11 Freida treatment y 12-02 Hope in home 10:30: [id number] 00 Endo/Benjamin anti-coagul Endo/Benjamin Resolve 2018-112019-10-06 Freida ation d 12-02 13:19:00 Hope therapy 10:30: [id number] 00 Sensory impaired Sensory Active 2018-11 Freida hearing 12-02 Hope 10:30: [id number] 00 Integument skin Integument Resolve 2018-112019-10-08 Freida integrity d 12-02 14:40:00 Hope risk 10:30: [id number] 00 Nutrition nutritional Nutrition Resolve 2018-112019-10-13 Freida restriction d 12-02 10:23:00 Hope s 10:30: [id number] 00 Elimination urinary Eliminatio Resolve 2018-112019-10-06 Freida incontinenc n d 12-02 13:19:00 Hope e 10:30: [id number] 00 Neuro confusion Neuro/Emot Active 2018-11 Freida present ion 12-02 Hope 10:30: [id number] 00 Neuro anxiety Neuro/Emot Active 2018-11 Freida present ion 12-02 Hope 10:30: [id number] 00 Neuro depressive Neuro/Emot Active 2018-11 Freida feelings ion 12-02 Hope present 10:30: [id number] 00 Neuro impaired Neuro/Emot Active 2018-11 Freida decision-ma ion 12-02 Hope claritza 10:30: [id number] 00 Activity ADL Activity Active 2018-11 Freida assistance 12-02 Hope required 10:30: [id number] 00 Activity self-care Activity Resolve 2018-112019-10-06 Freida deficit d 12-02 13:19:00 Hope 10:30: [id number] 00 Safety cannot be Safety Active 2018-11 Freida left alone 12-02 Hope 10:30: [id number] 00 Safety knowledge/s Safety Resolve 2018-112019-10-16 Freida kill d 12-02 14:28:00 Hope deficit: pt 10:30: [id number] 00 Safety fall risk Safety Resolve 2018-112019-10-10 Freida factor d 12-02 14:55:00 Hope present 10:30: [id number] 00 Safety risk for Safety Resolve 2018-112019-10-10 Freida hospitaliza d 12-02 14:55:00 Hope tion 10:30: [id number] 00 Medication oral med Meds Resolve 2018-112019-10-13 Freida assistance d 12-02 10:23:00 Hope required 10:30: [id number] 00 Musculoskel transfer Musculoske Resolve 2018-112019-10-13 Freida etal assistance letal d 12-02 10:23:00 Serena required 10:30: [id number] 00 Musculoskel requires Musculoske Resolve 2018-112019-10-13 Freida etal human letal d 12-02 10:23:00 Hope assist to 10:30: [id number] leave home 00 Cardio edema Cardiovasc Resolve 2018-112019-11-11 Radha ular d 12-10 12:38:00 [place] 14:55: RN 00 Safety risk for Safety Resolve 2018-112019-10-16 Radha hospitaliza d 12-13 14:28:00 [place] tion 10:23: RN 00 Medication oral med Meds Active 2018-11 Radha assistance 12-16 [place] required 14:28: RN 00 Safety knowledge/s Safety Active 2018-11 Evelyn kill 12-17 [place] deficit: pt 10:00: [id number] 00 Safety risk for Safety Resolve 2018-112019-10-31 Evelyn hospitaliza d 12-17 14:05:00 [place] tion 10:00: [id number] 00 Social knowledge/s RUSLAN: Active 2018-11 Evelyn Services kill Social 12-17 [place] deficit - Services 10:00: [id number] pt 00 Safety can be left Safety Active 2018-11 Shanelle yrn for 12-22 Ernestina only short 12:04: [id number] periods 00 Safety fire risk Safety Resolve [...] 14:05:00 [place] present 14:05: RN 00 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 PT/OT: Active 2018-11 Georges urance rdination Balance/En 01-01 Cory, deficit durance 15:00: PT 00 Gait/Locomo gait PT/OT: Active 2018-11 Georges tion deficit Gait/Locom 01-01 Cory, problems otion 15:00: PT 00 Elimination urinary Eliminatio Resolve 2018-112019-11-03 Radha incontinenc n d 2- 13:20:00 [place] e 13:20: RN 00 Safety fall risk Safety Resolve 2018-112019-11-06 Gisele White factor d 2- 13:30:00 present 13:43: 55 Safety risk for Safety Resolve 2018-112019-11-06 Gisele Snyder hospitaliza d 2- 13:30:00 tion 13:43: 55 Elimination urinary Eliminatio Resolve 2018-112019-11-06 Radha incontinenc n d 2- 13:30:00 [place] e 13:30: RN 00 Safety risk for Safety Active 2018-11 Evelyn hospitaliza 01-08 [place] tion 08:30: [id number] 00 Allergies, Adverse Reactions, Alerts Allergy Allergy Type Status Severity Reaction(s) Onset Inactive Treating Comments Name Date Date Clinician codeine Base Active Unknown Reaction 2019-03 [place] Ingredient Unknown 08 Quan Medications Ordered Filled Start Stop Current [...] Oxygen 2018-11 Yes Jander Unknown Unknown 12-02 MD,Cinthia predniSONE predniSONE 2018-11- Yes Jander Unknown Unknown 20 mg 20 mg 12-10 MD,Cinthia tablet tablet omeprazole omeprazole 2018-11- Yes Jander [...] e 40 mg e 40 mg 01-01- MD,Cinthia tablet,manny tablet,manny yed release yed release cefPODOXime cefPODOXime 2018-11- Yes Jander Unknown Unknown 200 mg 200 mg 01-01- MD,Cinthia tablet tablet pantoprazol pantoprazol 2018-11 Yes Jander Unknown Unknown e 40 mg e 40 mg 01-01 MD,Cinthia tablet,manny tablet,manny yed release yed release predniSONE predniSONE 2018-11 Yes Jander Unknown Unknown 10 mg 10 mg 01-05 MD,Cinthia tablet tablet Vital Signs Vital Name Observation Time Observation Value Comments SYSTOLIC mm[Hg] 2019-11-14 18:09:27 140 mm[Hg] mm[Hg] Method: Sit DIASTOLIC mm[Hg] 2019-11-14 18:09:27 72 mm[Hg] mm[Hg] Method: Sit PULSE 2019-11-14 18:09:27 80 /min /min RESP RATE 2019-11-14 18:09:27 20 /min /min TEMP 2019-11-14 18:09:27 97.5 [degF] Procedures This patient has no known procedures. Results This patient has no known results.
--- OUTSIDE RECORDS SUMMARY | 2019-12-01 08:14 | XMS REPORT | Summary of Care ---
:1945 Author Organization [facility] Address [address] [place] [address] Care Team Providers Name Role Phone Cinthia Winston MD Primary Care Provider Reason for Visit Reason Comments New Patient Left ankle pain. Patient fell and injured the ankle 10/19/2019. Encounter Details Date Type Department Care Team Description 11/05/2019 Office Visit [facility] - Teddy Lee MD Acute left ankle pain [place] [address] [employer] [facility] (Primary Dx) [address] [place] [address] [place] [address] [place] [address] [phone] Allergies Active Allergy Reactions Severity Noted Date Comments Codeine GI Reaction 11/05/2019 documented as of this encounter (statuses as of 11/05/2019) Medications Medication Sig Dispensed Refills Start Date End Date Status tolterodine (DETROL LA) 4 Take 4 mg by 0 Active MG Oral CAPSULE SR 24 HR mouth DAILY. Losartan Potassium 100 MG Take by mouth. 0 Active Oral Tab Aspirin 81 MG Oral Tab Take 81 mg by 0 Active mouth. fluoxetine (PROZAC) 20 MG Take 20 mg by 0 Active Oral Cap mouth DAILY. Cyanocobalamin (VITAMIN Take by mouth. 0 Active B-12 PO) amLodipine (NORVASC) 10 Take 10 mg by 0 Active MG Oral Tab mouth DAILY. atorvastatin (LIPITOR) 20 Take by mouth 0 Active MG Oral Tab DAILY. mirtazapine (REMERON) 15 Take 15 mg by 0 Active MG Oral Tab mouth EVERY BEDTIME. PRIMIDONE PO Take by mouth. 0 Active Albuterol Sulfate (PROAIR Take by 0 Active HFA IN) inhalation. Polyethylene Glycol 3350 Take by mouth. 0 Active (MIRALAX PO) PREDNISONE PO Take by mouth. 0 Active Ibuprofen (IBU PO) Take by mouth. 0 Active Pantoprazole Sodium 40 MG Take by mouth. 0 Active Oral Pack documented as of this encounter (statuses as of 11/05/2019) Active Problems No known active problemsdocumented as of this encounter (statuses as of 2018) Social History Tobacco Use Types Packs/Day Years Used Date Current Every Day Smoker Smokeless Tobacco: Never Used Sex Assigned at Date Recorded Not on file Job Start Date Occupation Industry Not on file Not on file Not on file Travel History Travel Start Travel End No recent travel history available. documented as of this encounter Last Filed Vital Signs Vital Sign Reading Time Taken Comments Blood Pressure 131/65 11/05/2019 12:11 PM EST Pulse 66 11/05/2019 12:11 PM EST Temperature - - Respiratory Rate - - Oxygen Saturation - - Inhaled Oxygen Concentration - - Weight 76.7 kg (169 lb) 11/05/2019 12:11 PM EST Height 152.4 cm (5') 11/05/2019 12:11 PM EST Body Mass Index 33.01 11/05/2019 12:11 PM EST documented in this encounter Progress Notes Teddy Lee MD - 11/05/2019 12:00 PM EST Name: Farrah Augustin : 1945 Date of Service: 11/05/2019 Referring Provider: Self-Referred Primary Care Provider: Cinthia Winston Chief Complaint Patient presents with New Patient Left ankle pain. Patient fell and injured the ankle 10/19/2019. Past Medical History: Diagnosis Date Hx of heart artery stent Past Surgical History: Procedure Laterality Date CARPAL TUNNEL RELEASE Left 1998 CARPAL TUNNEL RELEASE Right 1996 Current Outpatient Medications Medication Sig Albuterol Sulfate (PROAIR HFA IN) Take by inhalation. amLodipine (NORVASC) 10 MG Oral Tab Take 10 mg by mouth DAILY. Aspirin 81 MG Oral Tab Take 81 mg by mouth. atorvastatin (LIPITOR) 20 MG Oral Tab Take by mouth DAILY. Cyanocobalamin (VITAMIN B-12 PO) Take by mouth. fluoxetine (PROZAC) 20 MG Oral Cap Take 20 mg by mouth DAILY. Ibuprofen (IBU PO) Take by mouth. Losartan Potassium 100 MG Oral Tab Take by mouth. mirtazapine (REMERON) 15 MG Oral Tab Take 15 mg by mouth EVERY BEDTIME. Pantoprazole Sodium 40 MG Oral Pack Take by mouth. Polyethylene Glycol 3350 (MIRALAX PO) Take by mouth. PREDNISONE PO Take by mouth. PRIMIDONE PO Take by mouth. tolterodine (DETROL LA) 4 MG Oral CAPSULE SR 24 HR Take 4 mg by mouth DAILY. No current facility-administered medications for this visit. Allergies Allergen Reactions Codeine GI Reaction Social History Socioeconomic History Marital status: Spouse name: Not on file Number of children: Not on file Years of education: Not on file Highest education level: Not on file Occupational History Not on file Social Needs Financial resource strain: Not on file Food insecurity Worry: Not on file Inability: Not on file Transportation needs Medical: Not on file Non-medical: Not on file Tobacco Use Smoking status: Current Every Day Smoker Smokeless tobacco: Never Used Substance and Sexual Activity Alcohol use: Not on file Drug use: Not on file Sexual activity: Not on file Lifestyle Physical activity Days per week: Not on file Minutes per session: Not on file Stress: Not on file Relationships Social connections Talks on phone: Not on file Gets together: Not on file Attends yazdanism service: Not on file Active member of club or organization: Not on file Attends meetings of clubs or organizations: Not on file Relationship status: Not on file Intimate partner violence Fear of current or ex partner: Not on file Emotionally abused: Not on file Physically abused: Not on file Forced sexual activity: Not on file Other Topics Concern Not on file Social History Narrative Not on file History reviewed. No pertinent family history. ROS: Review of systems intake completed by clinical staff. I have reviewed and agree with their documentation. 74-year-old nonambulatory woman presents with left ankle pain after injury approximately 3 weeks ago. Seen at [facility] where x-rays and CAT scan, which I reviewed, show minimally displaced bimalleolar ankle fracture. Medial malleolus fracture is intra-articular but nondisplaced at the joint. Patient has been treated in a soft cast until presentation today. Patient has a amyotrophic lateral sclerosis and is wheelchair-bound. Her family helps her transfer but has been transferring with minimal weight bearing to the left leg. Physical exam shows a healthy-appearing woman in no acute distress. Alert and oriented. Patient has significant tremors both lower extremities. Skin appears normal. Minimal swelling. No redness. No point tenderness. Range of motion does not cause pain. Grossly neurovascular status intact left lower extremity except for underlying neurologic findings. Ankle x-rays today show essentially nondisplaced medial malleolus fracture. I cannot see lateral malleolus fracture on plain films done today. Plan: Cam walker. Minimal weightbearing for transfers. Reevaluate in 4 weeks. Impression: ICD-9-CM ICD-10-CM 1. Acute left ankle pain 719.47 M25.572 XR ANKLE MIN 3 VIEWS LEFT (STANDARD) FX CLOSED BIMALLEOLAR ANKLE W/O MANIP Author: Teddy Lee MD 11/05/2019 12:49 This record contains sections created with voice recognition software. It has been electronically signed. A reasonable attempt at proofreading has been made. Please call with any questions or corrections. documented in this encounter Plan of Treatment Name Type Priority Associated Diagnoses Date/Time XR ANKLE MIN 3 VIEWS Imaging Routine Acute left ankle pain 11/05/2019 12: 32 PM EST LEFT (STANDARD) Name Type Priority Associated Diagnoses Order Schedule XR ANKLE MIN 3 VIEWS Imaging Routine Acute left ankle pain Expected: LEFT (STANDARD) 11/05/2019, Expires: 11/04/2020 FX CLOSED BIMALLEOLAR Procedures Routine Acute left ankle pain Ordered: 09/2019 ANKLE W/O MANIP Health Maintenance Due Date Last Done Comments DTaP/Tdap/Td Vaccines (1 - Tdap) 1956 DEPRESSION SCREENING 1957 HIV SCREENING 1960 HEPATITIS C SCREENING 1985 MAMMOGRAM (SCREENING) 1985 Colonoscopy 1995 ZOSTER IMMUNIZATION SERIES (1 of 2) 1995 FALL RISK ASSESSMENT 2010 OSTEOPOROSIS SCREENING 2010 PNEUMOCOCCAL 65+YRS (1 of 2 - 2010 PCV13) INFLUENZA VACCINE (#1) 2019 HEPATITIS A IMMUNIZATION SERIES Aged Out No longer eligible based on patient's age to complete this topic HPV IMMUNIZATION SERIES Aged Out No longer eligible based on patient's age to complete this topic MENINGOCOCCAL VACCINE IMM Aged Out No longer eligible based on patient's age to complete this topic documented as of this encounter Results Not on filedocumented in this encounter Visit Diagnoses Diagnosis Acute left ankle pain documented in this encounter Insurance Payer Benefit Plan / Subscriber ID Effective Dates Phone Address Type Group AETNA COMMERCIAL AETNA xxxxxxxxxx 2010-[place] Aetna t MEDICARE MEDICARE PART A xxxxxxxxxxx 1999-[place] Medicare & B t documented as of this encounter
--- OUTSIDE RECORDS SUMMARY | 2019-12-01 08:14 | XMS REPORT ---
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 Active Radha (current) (current) [place] use of use of RN aspirin aspirin long-term long-term Diagnosis Active Radha (current) (current) [place] use [...] Resolve 2018-112019-10-13 Freida pain d 12-02 10:23:00 [place] 10:30: [id number] 00 Respiratory dyspnea Respirator Active 2018-11 Freida present y 12-02 [place] 10:30: [id number] 00 Respiratory oxygen Respirator Active 2018-11 Freida treatments y 12-02 [place] in home 10:30: [id number] 00 Respiratory knowledge/s Respirator Active 2018-11 Freida kill y 12-02 [place] deficit: pt 10:30: [id number] 00 Respiratory knowledge/s Respirator Active 2018-11 Freida kill y 12-02 [place] deficit: cg 10:30: [id number] 00 Respiratory lung sounds Respirator Active 2018-11 Freida deficit y 12-02 [place] 10:30: [id number] 00 Respiratory smoker Respirator Active 2018-11 Freida y 12-02 [place] 10:30: [id number] 00 Respiratory nebulizer Respirator Active 2018-11 Freida treatment y 12-02 [place] in home 10:30: [id number] 00 Endo/Benjamin anti-coagul Endo/Benjamin Resolve 2018-112019-10-06 Freida ation d 12-02 13:19:00 [place] therapy 10:30: [id number] 00 Sensory impaired Sensory Active 2018-11 Freida hearing 12-02 [place] 10:30: [id number] 00 Integument skin Integument Resolve 2018-112019-10-08 Freida integrity d 12-02 14:40:00 [place] risk 10:30: [id number] 00 Nutrition nutritional Nutrition Resolve 2018-112019-10-13 Freida restriction d 12-02 10:23:00 [place] s 10:30: [id number] 00 Elimination urinary Eliminatio Resolve 2018-112019-10-06 Freida incontinenc n d 12-02 13:19:00 [place] e 10:30: [id number] 00 Neuro confusion Neuro/Emot Active 2018-11 Freida present ion 12-02 [place] 10:30: [id number] 00 Neuro anxiety Neuro/Emot Active 2018-11 Freida present ion 12-02 [place] 10:30: [id number] 00 Neuro depressive Neuro/Emot Active 2018-11 Freida feelings ion 12-02 [place] present 10:30: [id number] 00 Neuro impaired Neuro/Emot Active 2018-11 Freida decision-ma ion 12-02 [place] claritza 10:30: [id number] 00 Activity ADL Activity Active 2018-11 Freida assistance 12-02 [place] required 10:30: [id number] 00 Activity self-care Activity Resolve 2018-112019-10-06 Freida deficit d 12-02 13:19:00 [place] 10:30: [id number] 00 Safety cannot be Safety Active 2018-11 Freida left alone 12-02 [place] 10:30: [id number] 00 Safety knowledge/s Safety Resolve 2018-112019-10-16 Freida kill d 12-02 14:28:00 [place] deficit: pt 10:30: [id number] 00 Safety fall risk Safety Resolve 2018-112019-10-10 Freida factor d 12-02 14:55:00 [place] present 10:30: [id number] Safety risk for Safety Resolve 2018-112019-10-10 Freida hospitaliza d 12-02 14:55:00 [place] tion 10:30: [id number] 00 Medication oral med Meds Resolve 2018-112019-10-13 Freida assistance d 12-02 10:23:00 [place] required 10:30: [id number] 00 Musculoskel transfer Musculoske Resolve 2018-112019-10-13 Freida etal assistance letal d 12-02 10:23:00 Serena required 10:30: [id number] 00 Musculoskel requires Musculoske Resolve 2018-112019-10-13 Freida etal human letal d 12-02 10:23:00 [place] assist to 10:30: [id number] leave home 00 Cardio edema Cardiovasc Active 2018-11 Radha ular 12-10 [place] 14:55: RN 00 Safety risk for Safety Resolve 2018-112019-10-16 Radha hospitaliza d 12-13 14:28:00 [place] tion 10:23: RN 00 Medication oral med Meds Active 2018-11 Radha assistance 12-16 [place] required 14:28: RN 00 Safety knowledge/s Safety Active 2018-11 Evelyn kill 12-17 [place] deficit: pt 10:00: [id number] 00 Safety risk for Safety Resolve 2018-112019-10-31 Evelyn hospitaliza d 12-17 14:05:00 [place] tion 10:00: [id number] 00 Social knowledge/s RUSLAN: Active 2018-11 Evelyn Services kill Social 12-17 [place] deficit - Services 10:00: [id number] pt 00 Safety can be left Safety Active 2018-11 Shanelle pool for 12-22 Ernestina only short 12:04: [id number] periods 00 Safety fire risk Safety Resolve [...] risk Safety Resolve 2018-112019-10-31 Radha factor d 01-01 14:05:00 [place] present 14:05: RN 00 Balance/End 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/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 PT/OT: Active 2018-11 Georges urance rdination Balance/En 01-01 Cory, deficit durance 15:00: PT 00 Gait/Locomo gait PT/OT: Active 2018-11 Georges tion deficit Gait/Locom 01-01 Cory, problems otion 15:00: PT 00 Elimination urinary Eliminatio Resolve 2018-112019-11-03 Radha incontinenc n d 2 13:20:00 [place] e 13:20: RN 00 Safety [...] 2018-11 Evelyn hospitaliza 01-08 [place] tion 08:30: [id number] 00 Allergies, Adverse Reactions, Alerts Allergy Allergy Type Status Severity Reaction(s) Onset Inactive Treating Comments Name Date Date Clinician codeine Base Active Unknown Reaction 2019-03 [place] Ingredient Quan Medications Ordered Filled Start Stop Current Ordering Indication Dosage Frequency Signature Comments Components Medication Medication Date Date Medication? Clinician (SIG) Name Name FLUoxetine FLUoxetine 2018-11 Yes Jander Unknown Unknown 20 mg 20 mg 1-07 Cinthia ELLISON capsule capsule atorvastati atorvastati 2018-11 Yes Jander Unknown Unknown n 20 mg n 20 mg 07 Cinthia ELLISON tablet tablet ProAir HFA ProAir HFA 2018-11 Yes Jander Unknown Unknown 90 90 - Cinthia ELLISON mcg/actuati mcg/actuati on aerosol on aerosol inhaler inhaler Serevent Serevent 2018-11 Yes Jander Unknown Unknown Diskus 50 Diskus 50 1-07 Cinthia ELLISON mcg/dose mcg/dose powder for powder for inhalation inhalation Incruse Incruse 2018-11 Yes Jander Unknown Unknown Ellipta Ellipta Cinthia ELLISON 62.5 62.5 mcg/actuati mcg/actuati on powder on powder for for inhalation inhalation Detrol LA 4 Detrol LA 4 2018-11 Yes Jander Unknown Unknown mg mg 12-02 Cinthia ELLISON capsule,ext capsule,ext ended ended release release Myrbetriq [...] Unknown 15 mg 15 mg 12-02 Cinthia ELILSON tablet tablet Chest Chest 2018-11 Yes Jander [...] n 250 mg n 250 mg 01-01 MD,Cinthia tablet tablet ibuprofen ibuprofen 2018-11 Yes [...] Observation Time Observation Value Comments SYSTOLIC mm[Hg] 2019-11-11 18:09:24 146 mm[Hg] mm[Hg] Method: Sit DIASTOLIC mm[Hg] 2019-11-11 18:09:24 78 mm[Hg] mm[Hg] Method: Sit PULSE 2019-11-11 18:09:24 86 /min /min RESP RATE 2019-11-11 18:09:24 22 /min /min TEMP 2019-11-11 18:09:24 98.4 [degF] Procedures This patient has no known procedures. Results This patient has no known results.
--- OUTSIDE RECORDS SUMMARY | 2019-12-01 08:14 | XMS REPORT ---
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 Diagnosis Active Radha (current) (current) [place] use of use of RN aspirin aspirin [facility] Diagnosis Active Radha (current) (current) [place] use [...] Resolve 2018-112019-10-13 Freida pain d 12-02 10:23:00 [place] 10:30: [id number] 00 Respiratory dyspnea Respirator Active 2018-11 Freida present y 12-02 [place] 10:30: [id number] 00 Respiratory oxygen Respirator Active 2018-11 Freida treatments y 12-02 [place] in home 10:30: [id number] 00 Respiratory knowledge/s Respirator Active 2018-11 Freida kill y 12-02 [place] deficit: pt 10:30: [id number] 00 Respiratory knowledge/s Respirator Active 2018-11 Freida kill y 12-02 [place] deficit: cg 10:30: [id number] 00 Respiratory lung sounds Respirator Active 2018-11 Freida deficit y 12-02 [place] 10:30: [id number] 00 Respiratory smoker Respirator Active 2018-11 Freida y 12-02 [place] 10:30: [id number] 00 Respiratory nebulizer Respirator Active 2018-11 Freida treatment y 12-02 [place] in home 10:30: [id number] 00 Endo/Benjamin anti-coagul Endo/Benjamin Resolve 2018-112019-10-06 Freida ation d 12-02 13:19:00 [place] therapy 10:30: [id number] 00 Sensory impaired Sensory Active 2018-11 Fre[place] hearing 12-02 [place] 10:30: [id number] 00 Integument skin Integument Resolve 2018-112019-10-08 Freida integrity d 12-02 14:40:00 [place] risk 10:30: [id number] 00 Nutrition nutritional Nutrition Resolve 2018-112019-10-13 Freida restriction d 12-02 10:23:00 [place] s 10:30: [id number] 00 Elimination urinary Eliminatio Resolve 2018-112019-10-06 Freida incontinenc n d 12-02 13:19:00 [place] e 10:30: [id number] 00 Neuro confusion Neuro/Emot Active 2018-11 Freida present ion 12-02 [place] 10:30: [id number] 00 Neuro anxiety Neuro/Emot Active 2018-11 Fre[place] present ion 12-02 [place] 10:30: [id number] 00 Neuro depressive Neuro/Emot Active 2018-11 Freida feelings ion 12-02 [place] present 10:30: [id number] 00 Neuro impaired Neuro/Emot Active 2018-11 Freida decision-ma ion 12-02 [place] claritza 10:30: [id number] 00 Activity ADL Activity Active 2018-11 Freida assistance 12-02 [place] required 10:30: [id number] 00 Activity self-care Activity Resolve 2018-112019-10-06 [place] deficit d 12-02 13:19:00 [place] 10:30: [id number] 00 Safety cannot be Safety Active 2018-11 Freida left alone 12-02 [place] 10:30: [id number] 00 Safety knowledge/s Safety Resolve 2018-112019-10-16 Fre[place] kill d 12-02 14:28:00 [place] deficit: pt 10:30: [id number] 00 Safety fall risk Safety Resolve 2018-112019-10-10 Freida factor d 12-02 14:55:00 [place] present 10:30: [id number] 00 Safety risk for Safety Resolve 2018-112019-10-10 Freida hospitaliza d 12-02 14:55:00 [place] tion 10:30: [id number] 00 Medication oral med Meds Resolve 2018-112019-10-13 [place] assistance d 12-02 10:23:00 [place] required 10:30: [id number] 00 Musculoskel transfer Musculoske Resolve 2018-112019-10-13 Freida etal assistance letal d 12-02 10:23:00 [place] required 10:30: [id number] 00 Musculoskel requires Musculoske Resolve 2018-112019-10-13 Freida etal human letal d 12-02 10:23:00 [place] assist to 10:30: [id number] leave home 00 Cardio edema Cardiovasc Active 2018-11 Radha ular 12-10 [place] 14:55: RN 00 Safety risk for Safety Resolve 2018-112019-10-16 Radha hospitaliza d 12-13 14:28:00 [place] tion 10:23: RN 00 Medication oral med Meds Active 2018-11 Radha assistance 12-16 [place] required 14:28: RN 00 Safety knowledge/s Safety Active 2018-11 Evelyn kill 12-17 [place] deficit: pt 10:00: [id number] 00 Safety risk for Safety Resolve 2018-112019-10-31 Evelyn hospitaliza d 12-17 14:05:00 [place] tion 10:00: [id number] 00 Social knowledge/s RUSLAN: Active 2018-11 Evelyn Services kill Social 12-17 [place] deficit - Services 10:00: [id number] pt 00 Safety can be left Safety Active 2018-11 Shanelle pool for 12-22 [place] only short 12:04: [id number] periods 00 Safety fire risk Safety Resolve [...] 14:05:00 [place] present 14:05: RN 00 Balance/End 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
--- OUTSIDE RECORDS SUMMARY | 2019-12-01 08:14 | XMS REPORT ---
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 Radha (current) (current) [place] use of use of RN aspirin aspirin [facility] Diagnosis Active Radha (current) (current) [place] use [...] Resolve 2018-112019-10-13 [place] pain d 12-02 10:23:00 [place] 10:30: [id number] 00 Respiratory dyspnea Respirator Active 2018-11 Fre[place] present y 12-02 [place] 10:30: [id number] 00 Respiratory oxygen Respirator Active 2018-11 [place] treatments y 12-02 [place] in home 10:30: [id number] 00 Respiratory knowledge/s Respirator Active 2018-11 Fre[place] kill y 12-02 [place] deficit: pt 10:30: [id number] 00 Respiratory knowledge/s Respirator Active 2018-11 [place] kill y 12-02 [place] deficit: cg 10:30: [id number] 00 Respiratory lung sounds Respirator Active 2018-11 [place] deficit y 12-02 [place] 10:30: [id number] 00 Respiratory smoker Respirator Active 2018-11 Freida y 12-02 [place] 10:30: [id number] 00 Respiratory nebulizer Respirator Active 2018-11 [place] treatment y 12-02 [place] in home 10:30: [id number] 00 Endo/Benjamin anti-coagul Endo/Benjamin Resolve 2018-112019-10-06 [place] ation d 12-02 13:19:00 [place] therapy 10:30: [id number] 00 Sensory impaired Sensory Active 2018-11 [place] hearing 12-02 [place] 10:30: [id number] 00 Integument skin Integument Resolve 2018-112019-10-08 Fre[place] integrity d 12-02 14:40:00 [place] risk 10:30: [id number] 00 Nutrition nutritional Nutrition Resolve 2018-112019-10-13 [place] restriction d 12-02 10:23:00 [place] s 10:30: [id number] 00 Elimination urinary Eliminatio Resolve 2018-112019-10-06 [place] incontinenc n d 12-02 13:19:00 [place] e 10:30: [id number] 00 Neuro confusion Neuro/Emot Active 2018-11 Fre[place] present ion 12-02 [place] 10:30: [id number] 00 Neuro anxiety Neuro/Emot Active 2018-11 [place] present ion 12-02 [place] 10:30: [id number] 00 Neuro depressive Neuro/Emot Active 2018-11 Freida feelings ion 12-02 [place] present 10:30: [id number] 00 Neuro impaired Neuro/Emot Active 2018-11 Freida decision-ma ion 12-02 [place] claritza 10:30: [id number] 00 Activity ADL Activity Active 2018-11 Freida assistance 12-02 [place] required 10:30: [id number] 00 Activity self-care Activity Resolve 2018-112019-10-06 [place] deficit d 12-02 13:19:00 [place] 10:30: [id number] 00 Safety cannot be Safety Active 2018-11 Freida left alone 12-02 [place] 10:30: [id number] 00 Safety knowledge/s Safety Resolve 2018-112019-10-16 [place] kill d 12-02 14:28:00 [place] deficit: pt 10:30: [id number] 00 Safety fall risk Safety Resolve 2018-112019-10-10 Fre[place] factor d 12-02 14:55:00 [place] present 10:30: [id number] 00 Safety risk for Safety Resolve 2018-112019-10-10 Freida hospitaliza d 12-02 14:55:00 [place] tion 10:30: [id number] 00 Medication oral med Meds Resolve 2018-112019-10-13 Freida assistance d 12-02 10:23:00 [place] required 10:30: [id number] 00 Musculoskel transfer Musculoske Resolve 2018-112019-10-13 Freida etal assistance letal d 12-02 10:23:00 [place] required 10:30: [id number] 00 Musculoskel requires Musculoske Resolve 2018-112019-10-13 Freida etal human letal d 12-02 10:23:00 [place] assist to 10:30: [id number] leave home 00 Cardio edema Cardiovasc Active 2018-11 Radha ular 12-10 [place] 14:55: RN 00 Safety risk for Safety Resolve 2018-112019-10-16 Radha hospitaliza d 12-13 14:28:00 [place] tion 10:23: RN 00 Medication oral med Meds Active 2018-11 Radha assistance 12-16 [place] required 14:28: RN 00 Safety knowledge/s Safety Active 2018-11 Evelyn kill 12-17 [place] deficit: pt 10:00: [id number] 00 Safety risk for Safety Resolve 2018-112019-10-31 Evelyn hospitaliza d 12-17 14:05:00 [place] tion 10:00: [id number] 00 Social knowledge/s RUSLAN: Active 2018-11 Evelyn Services kill Social 12-17 [place] deficit - Services 10:00: [id number] pt 00 Safety can be left Safety Active 2018-11 Shanelle pool for 12-22 [place] only short 12:04: [id number] periods 00 Safety fire risk Safety Resolve [...] 14:05:00 [place] present 14:05: RN 00 Balance/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 balance/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 coordinator PT/OT: Active 2018-11 Georges urance rdination Balance/En 01-01 [place], deficit durance 15:00: PT 00 [id number] Gait/Locomo gait PT/OT: Active 2018-11 Georges tion deficit Gait/Locom 01-01 [place], problems otion 15:00: PT 00 Elimination urinary Eliminatio Resolve 2018-112019-11-03 Radha incontinenc n d 01-04 13:20:00 [place] e 13:20: RN 00 Safety fall risk Safety Resolve 2018-112019-11-06 Gisele Snyder factor d 2 13:30:00 present 13:43: 55 Safety risk for Safety Resolve 2018-112019-11-06 Gisele Snyder hospitaliza d 2 13:30:00 tion 13:43: 55 Elimination urinary Eliminatio Resolve 2018-112019-11-06 Radha incontinenc n d 01-07 13:30:00 [place] e 13:30: RN 00 Allergies, Adverse Reactions, Alerts Allergy Allergy Type Status Severity Reaction(s) Onset Inactive Treating Comments Name Date Date Clinician codeine Base Active Unknown Reaction 2019-03 [place] [facility] Quan Medications Ordered Filled Start Stop Current Ordering Indication Dosage Frequency Signature Comments Components Medication Medication Date Date Medication? Clinician (SIG) Name Name FLUoxetine FLUoxetine 2018-11 Yes Jander Unknown Unknown 20 mg 20 mg 1- ,Cinthia capsule capsule atorvastati atorvastati 2018-11 Yes Jander Unknown Unknown n 20 mg n 20 mg - MDCinthia tablet tablet ProAir HFA ProAir HFA 2018-11 Yes Jander Unknown Unknown 90 90 12-02 MDCinthia mcg/actuati mcg/actuati on aerosol on aerosol inhaler [...] Unknown Unknown 10 mg 10 mg 12-02 ,[place]ia tablet tablet losartan losartan 2018-11 Yes Jander [...] Oxygen Oxygen 2018-11 Yes Jander Unknown Unknown - Cinthia ELLISON predniSONE predniSONE 2018-11- Yes Jander Unknown Unknown 20 mg 20 mg 12-10- Cinthia ELLISON tablet tablet omeprazole omeprazole 2019-1 2019- Yes Jander Unknown Unknown 20 mg 20 mg 12-10 MD,Cinthia capsule,del capsule,del ayed ayed release release fluticasone fluticasone 2018-11 Yes Jander Unknown Unknown propionate propionate - MD,Cinthia 50 50 mcg/actuati mcg/actuati on nasal [...] mg e 40 mg 01-01 MD,Cinthia tablet,manny tablet,mnany yed release yed release cefPODOXime cefPODOXime 2018-11- [...] Observation Time Observation Value Comments SYSTOLIC mm[Hg] 2019-11-06 18:09:19 144 mm[Hg] mm[Hg] Method: Sit DIASTOLIC mm[Hg] 2019-11-06 18:09:19 82 mm[Hg] mm[Hg] Method: Sit PULSE 2019-11-06 18:09:19 86 /min /min RESP RATE 2019-11-06 18:09:19 22 /min /min TEMP 2019-11-06 18:09:19 98.6 [degF] Procedures This patient has no known procedures. Results This patient has no known results.
--- OUTSIDE RECORDS SUMMARY | 2019-12-01 08:14 | XMS REPORT ---
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 Radha (current) (current) [place] use of use of RN aspirin aspirin [facility] Diagnosis Active Radha (current) (current) [place] use [...] Resolve 2018-112019-10-13 Freida pain d 12-02 10:23:00 [place] 10:30: [id number] 00 Respiratory dyspnea Respirator Active 2018-11 Freida present y 12-02 [place] 10:30: [id number] 00 Respiratory oxygen Respirator Active 2018-11 Freida treatments y 12-02 [place] in home 10:30: [id number] 00 Respiratory knowledge/s Respirator Active 2018-11 Freida kill y 12-02 [place] deficit: pt 10:30: [id number] 00 Respiratory knowledge/s Respirator Active 2018-11 Freida kill y 12-02 [place] deficit: cg 10:30: [id number] 00 Respiratory lung sounds Respirator Active 2018-11 Fre[place] deficit y 12-02 [place] 10:30: [id number] 00 Respiratory smoker Respirator Active 2018-11 Freida y 12-02 [place] 10:30: [id number] 00 Respiratory nebulizer Respirator Active 2018-11 Freiad treatment y 12-02 [place] in home 10:30: [id number] 00 Endo/Benjamin anti-coagul Endo/Benjamin Resolve 2018-112019-10-06 Freida ation d 12-02 13:19:00 [place] therapy 10:30: [id number] 00 Sensory impaired Sensory Active 2018-11 Freida hearing 12-02 [place] 10:30: [id number] 00 Integument skin Integument Resolve 2018-112019-10-08 Freida integrity d 12-02 14:40:00 [place] risk 10:30: [id number] 00 Nutrition nutritional Nutrition Resolve 2018-112019-10-13 Freida restriction d 12-02 10:23:00 [place] s 10:30: [id number] 00 Elimination urinary Eliminatio Resolve 2018-112019-10-06 Fre[place] incontinenc n d 12-02 13:19:00 [place] e 10:30: [id number] 00 Neuro confusion Neuro/Emot Active 2018-11 Fre[place] present ion 12-02 [place] 10:30: [id number] 00 Neuro anxiety Neuro/Emot Active 2018-11 [place] present ion 12-02 [place] 10:30: [id number] 00 Neuro depressive Neuro/Emot Active 2018-11 Freida feelings ion 12-02 [place] present 10:30: [id number] 00 Neuro impaired Neuro/Emot Active 2018-11 Freida decision-ma ion 12-02 [place] claritza 10:30: [id number] 00 Activity ADL Activity Active 2018-11 Freida assistance 12-02 [place] required 10:30: [id number] 00 Activity self-care Activity Resolve 2018-112019-10-06 [place] deficit d 12-02 13:19:00 [place] 10:30: [id number] 00 Safety cannot be Safety Active 2018-11 Freida left alone 12-02 [place] 10:30: [id number] 00 Safety knowledge/s Safety Resolve 2018-112019-10-16 Fre[place] kill d 12-02 14:28:00 [place] deficit: pt 10:30: [id number] 00 Safety fall risk Safety Resolve 2018-112019-10-10 Freida factor d 12-02 14:55:00 [place] present 10:30: [id number] 00 Safety risk for Safety Resolve 2018-112019-10-10 Freida hospitaliza d 12-02 14:55:00 [place] tion 10:30: [id number] 00 Medication oral med Meds Resolve 2018-112019-10-13 Freida assistance d 12-02 10:23:00 [place] required 10:30: [id number] 00 Musculoskel transfer Musculoske Resolve 2018-112019-10-13 Fre[place] etal assistance letal d 12-02 10:23:00 [place] required 10:30: [id number] 00 Musculoskel requires Musculoske Resolve 2018-112019-10-13 Freida etal human letal d 12-02 10:23:00 [place] assist to 10:30: [id number] leave home 00 Cardio edema Cardiovasc Resolve 2018-112019-11-11 Radha ular d 12-10 12:38:00 [place] 14:55: RN 00 Safety risk for Safety Resolve 2018-112019-10-16 Radha hospitaliza d 12-13 14:28:00 [place] tion 10:23: RN 00 Medication oral med Meds Active 2018-11 Radha assistance 12-16 [place] required 14:28: RN 00 Safety knowledge/s Safety Resolve 2018-112019-11-14 Evelyn kill d 12-17 08:30:00 [place] deficit: pt 10:00: [id number] 00 Safety risk for Safety Resolve 2018-112019-10-31 Evelyn hospitaliza d 12-17 14:05:00 [place] tion 10:00: [id number] 00 Social knowledge/s RUSLAN: Active 2018-11 Evelyn Services kill Social 12-17 [place] deficit - Services 10:00: [id number] pt 00 Safety can be left Safety Active 2018-11 Shanelle alone for 12-22 [place] only short 12:04: [id number] periods 00 Safety fire risk Safety Resolve [...] 14:05:00 [place] present 14:05: RN 00 Balance/End balance/care coordinator PT/OT: Active 2018-11 Georges urance rdination [...] hospitaliza d 2-13 08:30:00 [place] tion 08:30: [id number] 00 Safety risk for Safety Active 2018-11 Radha hospitaliza 2- [place] tion 08:35: RN 00 Allergies, Adverse Reactions, Alerts Allergy Allergy Type Status Severity Reaction(s) Onset Inactive Treating Comments Name Date Date Clinician codeine Base Active Unknown Reaction 2019-03 [place] [facility] Quan Medications Ordered Filled Start Stop [...] Yes Jander Unknown Unknown 90 90 12-02 MD,Cinthia mcg/actuati mcg/actuati on aerosol on aerosol [...] Unknown Unknown 10 mg 10 mg 12-02 Ashish ELLISONia tablet tablet losartan losartan 2018-11 Yes Jander [...] mg 10 mg 01-15 MD,Cinthia tablet tablet Vital Signs Vital Name [...]
--- OUTSIDE RECORDS SUMMARY | 2019-12-01 08:14 | XMS REPORT ---
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 Radha (current) (current) [place] use of use of RN aspirin aspirin halfway halfway Diagnosis Active Radha (current) (current) [place] use [...] Resolve 2018-112019-10-13 Freida pain d 12-02 10:23:00 [place] 10:30: [id number] 00 Respiratory dyspnea Respirator Active 2018-11 Freida present y 12-02 [place] 10:30: [id number] 00 Respiratory oxygen Respirator Active 2018-11 Freida treatments y 12-02 [place] in home 10:30: [id number] 00 Respiratory knowledge/s Respirator Active 2018-11 Fre[place] kill y 12-02 [place] deficit: pt 10:30: [id number] 00 Respiratory knowledge/s Respirator Active 2018-11 Freida kill y 12-02 [place] deficit: cg 10:30: [id number] 00 Respiratory lung sounds Respirator Active 2018-11 Freida deficit y 12-02 [place] 10:30: [id number] 00 Respiratory smoker Respirator Active 2018-11 Freida y 12-02 [place] 10:30: [id number] 00 Respiratory nebulizer Respirator Active 2018-11 Freida treatment y 12-02 [place] in home 10:30: [id number] 00 Endo/Benjamin anti-coagul Endo/Benjamin Resolve 2018-112019-10-06 Freida ation d 12-02 13:19:00 [place] therapy 10:30: [id number] 00 Sensory impaired Sensory Active 2018-11 Freida hearing 12-02 [place] 10:30: [id number] 00 Integument skin Integument Resolve 2018-112019-10-08 Freida integrity d 12-02 14:40:00 [place] risk 10:30: [id number] 00 Nutrition nutritional Nutrition Resolve 2018-112019-10-13 Freida restriction d 12-02 10:23:00 [place] s 10:30: [id number] 00 Elimination urinary Eliminatio Resolve 2018-112019-10-06 Freida incontinenc n d 12-02 13:19:00 [place] e 10:30: [id number] 00 Neuro confusion Neuro/Emot Active 2018-11 Freida present ion 12-02 [place] 10:30: [id number] 00 Neuro anxiety Neuro/Emot Active 2018-11 Freida present ion 12-02 [place] 10:30: [id number] 00 Neuro depressive Neuro/Emot Active 2018-11 Freida feelings ion 12-02 [place] present 10:30: [id number] 00 Neuro impaired Neuro/Emot Active 2018-11 Freida decision-ma ion 12-02 [place] claritza 10:30: [id number] 00 Activity ADL Activity Active 2018-11 Freida assistance 12-02 [place] required 10:30: [id number] 00 Activity self-care Activity Resolve 2018-112019-10-06 [place] deficit d 12-02 13:19:00 [place] 10:30: [id number] 00 Safety cannot be Safety Active 2018-11 Freida left alone 12-02 [place] 10:30: [id number] 00 Safety knowledge/s Safety Resolve 2018-112019-10-16 [place] kill d 12-02 14:28:00 [place] deficit: pt 10:30: [id number] 00 Safety fall risk Safety Resolve 2018-112019-10-10 Freida factor d 12-02 14:55:00 [place] present 10:30: [id number] 00 Safety risk for Safety Resolve 2018-112019-10-10 Freida hospitaliza d 12-02 14:55:00 [place] tion 10:30: [id number] 00 Medication oral med Meds Resolve 2018-112019-10-13 Freida assistance d 12-02 10:23:00 [place] required 10:30: [id number] 00 Musculoskel transfer Musculoske Resolve 2018-112019-10-13 Freida etal assistance letal d 12-02 10:23:00 [place] required 10:30: [id number] 00 Musculoskel requires Musculoske Resolve 2018-112019-10-13 Freida etal human letal d 12-02 10:23:00 [place] assist to 10:30: [id number] leave home 00 Cardio edema Cardiovasc Active 2018-11 Radha ular 12-10 [place] 14:55: RN 00 Safety risk for Safety Resolve 2018-112019-10-16 Radha hospitaliza d 12-13 14:28:00 [place] tion 10:23: RN 00 Medication oral med Meds Active 2018-11 Radha assistance 12-16 [place] required 14:28: RN 00 Safety knowledge/s Safety Active 2018-11 Evelyn kill 12-17 [place] deficit: pt 10:00: [id number] 00 Safety risk for Safety Resolve 2018-112019-10-31 Evelyn hospitaliza d 12-17 14:05:00 [place] tion 10:00: [id number] 00 Social knowledge/s RUSLAN: Active 2018-11 Evelyn Services kill Social 12-17 [place] deficit - Services 10:00: [id number] pt 00 Safety can be left Safety Active 2018-11 Shanelle pool for 12-22 [place] only short 12:04: [id number] periods 00 Safety fire risk Safety Resolve [...] 14:05:00 [place] present 14:05: RN 00 Balance/End balance/change control coordinator PT/OT: Active 2018-11 Georges urance rdination [...] 2018-11 Evelyn hospitaliza 01-08 [place] tion 08:30: [id number] 00 Allergies, Adverse Reactions, Alerts Allergy Allergy Type Status Severity Reaction(s) Onset Inactive Treating Comments Name Date Date Clinician codeine Base Active Unknown Reaction 2019-03 [place] Ingredient Quan Medications Ordered Filled Start Stop [...]
--- OUTSIDE RECORDS SUMMARY | 2019-12-01 08:14 | XMS REPORT ---
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 Radha (current) (current) [place] [...] Resolve 2018-112019-10-13 Freida pain d 12-02 10:23:00 [place] 10:30: [id number] 00 Respiratory dyspnea Respirator Active 2018-11 Freida present y 12-02 [place] 10:30: [id number] 00 Respiratory oxygen Respirator Active 2018-11 Freida treatments y 12-02 [place] in home 10:30: [id number] 00 Respiratory knowledge/s Respirator Active 2018-11 Freida kill y 12-02 [place] deficit: pt 10:30: [id number] 00 Respiratory knowledge/s Respirator Active 2018-11 Freida kill y 12-02 [place] deficit: cg 10:30: [id number] 00 Respiratory lung sounds Respirator Active 2018-11 Freida deficit y 12-02 [place] 10:30: [id number] 00 Respiratory smoker Respirator Active 2018-11 Freida y 12-02 [place] 10:30: [id number] 00 Respiratory nebulizer Respirator Active 2018-11 Freida treatment y 12-02 [place] in home 10:30: [id number] 00 Endo/Benjamin anti-coagul Endo/Benjamin Resolve 2018-112019-10-06 Freida ation d 12-02 13:19:00 [place] therapy 10:30: [id number] 00 Sensory impaired Sensory Active 2018-11 Freida hearing 12-02 [place] 10:30: [id number] 00 Integument skin Integument Resolve 2018-112019-10-08 Freida integrity d 12-02 14:40:00 [place] risk 10:30: [id number] 00 Nutrition nutritional Nutrition Resolve 2018-112019-10-13 Freida restriction d 12-02 10:23:00 [place] s 10:30: [id number] 00 Elimination urinary Eliminatio Resolve 2018-112019-10-06 Freida incontinenc n d 12-02 13:19:00 [place] e 10:30: [id number] 00 Neuro confusion Neuro/Emot Active 2018-11 Freida present ion 12-02 [place] 10:30: [id number] 00 Neuro anxiety Neuro/Emot Active 2018-11 Freida present ion 12-02 [place] 10:30: [id number] 00 Neuro depressive Neuro/Emot Active 2018-11 Freida feelings ion 12-02 [place] present 10:30: [id number] 00 Neuro impaired Neuro/Emot Active 2018-11 Freida decision-ma ion 12-02 [place] claritza 10:30: [id number] 00 Activity ADL Activity Active 2018-11 Freida assistance 12-02 [place] required 10:30: [id number] 00 Activity self-care Activity Resolve 2018-112019-10-06 Fre[place] deficit d 12-02 13:19:00 [place] 10:30: [id number] 00 Safety cannot be Safety Active 2018-11 Freida left alone 12-02 [place] 10:30: [id number] 00 Safety knowledge/s Safety Resolve 2018-112019-10-16 Freida kill d 12-02 14:28:00 [place] deficit: pt 10:30: [id number] 00 Safety fall risk Safety Resolve 2018-112019-10-10 Freida factor d 12-02 14:55:00 [place] present 10:30: [id number] 00 Safety risk for Safety Resolve 2018-112019-10-10 Freida hospitaliza d 12-02 14:55:00 [place] tion 10:30: [id number] 00 Medication oral med Meds Resolve 2018-112019-10-13 Freida assistance d 12-02 10:23:00 [place] required 10:30: [id number] 00 Musculoskel transfer Musculoske Resolve 2018-112019-10-13 Freida etal assistance letal d 12-02 10:23:00 [place] required 10:30: [id number] 00 Musculoskel requires Musculoske Resolve 2018-112019-10-13 Freida etal human letal d 12-02 10:23:00 [place] assist to 10:30: [id number] leave home 00 Cardio edema Cardiovasc Resolve 2018-112019-11-11 Radha ular d 12-10 12:38:00 [place] 14:55: RN 00 Safety risk for Safety Resolve 2018-112019-10-16 Radha hospitaliza d 12-13 14:28:00 [place] tion 10:23: RN 00 Medication oral med Meds Active 2018-11 Radha assistance 12-16 [place] required 14:28: RN 00 Safety knowledge/s Safety Resolve 2018-112019-11-14 Evelyn kill d 12-17 08:30:00 [place] deficit: pt 10:00: [id number] 00 Safety risk for Safety Resolve 2018-112019-10-31 Evelyn hospitaliza d 12-17 14:05:00 [place] tion 10:00: [id number] 00 Social knowledge/s RUSLAN: Active 2018-11 Evelyn Services kill Social 12-17 [place] deficit - Services 10:00: [id number] pt 00 Safety can be left Safety Active 2018-11 Shanelle alone for 12-22 Ernestina only short 12:04: [id number] periods 00 Safety fire risk Safety Resolve [...] 14:05:00 [place] present 14:05: RN 00 Balance/End balance/resident services coordinator PT/OT: Active 2018-11 Georges urance rdination [...] hospitaliza d 2-13 08:30:00 [place] tion 08:30: [id number] 00 Safety risk for Safety Active 2018-11 Radha hospitaliza 2- [place] tion 08:35: RN 00 Allergies, Adverse Reactions, Alerts Allergy Allergy Type Status Severity Reaction(s) Onset Inactive Treating Comments Name Date Date Clinician codeine Base Active Unknown Reaction 2019-03 [place] Ingredient Quan Medications Ordered Filled Start Stop [...]
--- OUTSIDE RECORDS SUMMARY | 2019-12-01 08:14 | XMS REPORT ---
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 Active Radha (current) (current) [place] use of use of RN aspirin aspirin alf alf Diagnosis Active Radha (current) (current) [place] use [...] Resolve 2018-112019-10-13 Freida pain d 12-02 10:23:00 [place] 10:30: [id number] 00 Respiratory dyspnea Respirator Active 2018-11 Freida present y 12-02 [place] 10:30: [id number] 00 Respiratory oxygen Respirator Active 2018-11 Freida treatments y 12-02 [place] in home 10:30: [id number] 00 Respiratory knowledge/s Respirator Active 2018-11 Freida kill y 12-02 [place] deficit: pt 10:30: [id number] 00 Respiratory knowledge/s Respirator Active 2018-11 Freida kill y 12-02 [place] deficit: cg 10:30: [id number] 00 Respiratory lung sounds Respirator Active 2018-11 Freida deficit y 12-02 [place] 10:30: [id number] 00 Respiratory smoker Respirator Active 2018-11 Freida y 12-02 [place] 10:30: [id number] 00 Respiratory nebulizer Respirator Active 2018-11 Freida treatment y 12-02 [place] in home 10:30: [id number] 00 Endo/Benjamin anti-coagul Endo/Benjamin Resolve 2018-112019-10-06 Freida ation d 12-02 13:19:00 [place] therapy 10:30: [id number] 00 Sensory impaired Sensory Active 2018-11 Freida hearing 12-02 [place] 10:30: [id number] 00 Integument skin Integument Resolve 2018-112019-10-08 Freida integrity d 12-02 14:40:00 [place] risk 10:30: [id number] 00 Nutrition nutritional Nutrition Resolve 2018-112019-10-13 Freida restriction d 12-02 10:23:00 [place] s 10:30: [id number] 00 Elimination urinary Eliminatio Resolve 2018-112019-10-06 Freida incontinenc n d 12-02 13:19:00 [place] e 10:30: [id number] 00 Neuro confusion Neuro/Emot Active 2018-11 Freida present ion 12-02 [place] 10:30: [id number] 00 Neuro anxiety Neuro/Emot Active 2018-11 Freida present ion 12-02 [place] 10:30: [id number] 00 Neuro depressive Neuro/Emot Active 2018-11 Freida feelings ion 12-02 [place] present 10:30: [id number] 00 Neuro impaired Neuro/Emot Active 2018-11 Freida decision-ma ion 12-02 [place] claritza 10:30: [id number] 00 Activity ADL Activity Active 2018-11 Freida assistance 12-02 [place] required 10:30: [id number] 00 Activity self-care Activity Resolve 2018-112019-10-06 Freida deficit d 12-02 13:19:00 [place] 10:30: [id number] 00 Safety cannot be Safety Active 2018-11 Freida left alone 12-02 [place] 10:30: [id number] 00 Safety knowledge/s Safety Resolve 2018-112019-10-16 Freida kill d 12-02 14:28:00 [place] deficit: pt 10:30: [id number] 00 Safety fall risk Safety Resolve 2018-112019-10-10 Freida factor d 12-02 14:55:00 [place] present 10:30: [id number] 00 Safety risk for Safety Resolve 2018-112019-10-10 Freida hospitaliza d 12-02 14:55:00 [place] tion 10:30: [id number] 00 Medication oral med Meds Resolve 2018-112019-10-13 Freida assistance d 12-02 10:23:00 [place] required 10:30: [id number] 00 Musculoskel transfer Musculoske Resolve 2018-112019-10-13 Freida etal assistance letal d 12-02 10:23:00 [place] required 10:30: [id number] 00 Musculoskel requires Musculoske Resolve 2018-112019-10-13 Freida etal human letal d 12-02 10:23:00 [place] assist to 10:30: [id number] leave home 00 Cardio edema Cardiovasc Active 2018-11 Radha ular 12-10 [place] 14:55: RN 00 Safety risk for Safety Resolve 2018-112019-10-16 Radha hospitaliza d 12-13 14:28:00 [place] tion 10:23: RN 00 Medication oral med Meds Active 2018-11 Radha assistance 12-16 [place] required 14:28: RN 00 Safety knowledge/s Safety Active 2018-11 Evelyn kill 12-17 [place] deficit: pt 10:00: [id number] 00 Safety risk for Safety Resolve 2018-112019-10-31 Evelyn hospitaliza d 12-17 14:05:00 [place] tion 10:00: [id number] 00 Social knowledge/s RUSLAN: Active 2018-11 Evelyn Services kill Social 12-17 [place] deficit - Services 10:00: [id number] pt 00 Safety can be left Safety Active 2018-11 Shanelle pool for 12-22 [place] only short 12:04: [id number] periods 00 Safety fire risk Safety Resolve [...] 14:05:00 [place] present 14:05: RN 00 Balance/End balance/program coordinator executive education PT/OT: Active 2018-11 Georges urance rdination Balance/En [...] 2018-11 Evelyn hospitaliza 01-08 [place] tion 08:30: [id number] 00 Allergies, Adverse Reactions, Alerts Allergy Allergy Type Status Severity Reaction(s) Onset Inactive Treating Comments Name Date Date Clinician codeine Base Active Unknown Reaction 2019-03 [place] Ingredient Quan Medications Ordered Filled Start Stop [...]
--- OUTSIDE RECORDS SUMMARY | 2019-12-01 08:14 | XMS REPORT ---
:1945 Author Organization [facility] Care Team Providers Name Role Phone Unavailable Unavailable Unavailable Problems Condition Condition Condition Status Onset Resolution Last Treating Comments Name Details Category Date Date Treatment Clinician Date Pain frequent Pain Mgmt Resolve 2018-112019-10-13 Freida pain d 12-02 10:23:00 [place] 10:30: [id number] 00 Respiratory dyspnea Respirator Active 2018-11 Freida present y 12-02 [place] 10:30: [id number] 00 Respiratory oxygen Respirator Active 2018-11 Freida treatments y 12-02 [place] in home 10:30: [id number] 00 Respiratory knowledge/s Respirator Active 2018-11 Freida kill y 12-02 [place] deficit: pt 10:30: [id number] 00 Respiratory knowledge/s Respirator Active 2018-11 Freida kill y 12-02 [place] deficit: cg 10:30: [id number] 00 Respiratory lung sounds Respirator Active 2018-11 Freida deficit y 12-02 [place] 10:30: [id number] 00 Respiratory smoker Respirator Active 2018-11 Freida y 12-02 [place] 10:30: [id number] 00 Respiratory nebulizer Respirator Active 2018-11 Freida treatment y 12-02 [place] in home 10:30: [id number] 00 Endo/Benjamin anti-coagul Endo/Benjamin Resolve 2018-112019-10-06 Freida ation d 12-02 13:19:00 [place] therapy 10:30: [id number] 00 Sensory impaired Sensory Active 2018-11 Freida hearing 12-02 [place] 10:30: [id number] 00 Integument skin Integument Resolve 2018-112019-10-08 Freida integrity d 12-02 14:40:00 [place] risk 10:30: [id number] 00 Nutrition nutritional Nutrition Resolve 2018-112019-10-13 Freida restriction d 12-02 10:23:00 [place] s 10:30: [id number] 00 Elimination urinary Eliminatio Resolve 2018-112019-10-06 Freida incontinenc n d 12-02 13:19:00 [place] e 10:30: [id number] 00 Neuro confusion Neuro/Emot Active 2018-11 Freida present ion 12-02 [place] 10:30: [id number] 00 Neuro anxiety Neuro/Emot Active 2018-11 Freida present ion 12-02 [place] 10:30: [id number] 00 Neuro depressive Neuro/Emot Active 2018-11 Freida feelings ion 12-02 [place] present 10:30: [id number] 00 Neuro impaired Neuro/Emot Active 2018-11 Freida decision-ma ion 12-02 [place] claritza 10:30: [id number] 00 Activity ADL Activity Active 2018-11 Freida assistance 12-02 [place] required 10:30: [id number] 00 Activity self-care Activity Resolve 2018-112019-10-06 Freida deficit d 12-02 13:19:00 [place] 10:30: [id number] 00 Safety cannot be Safety Active 2018-11 Freida left alone 12-02 [place] 10:30: [id number] 00 Safety knowledge/s Safety Resolve 2018-112019-10-16 Freida kill d 12-02 14:28:00 [place] deficit: pt 10:30: [id number] 00 Safety fall risk Safety Resolve 2018-112019-10-10 Freida factor d 12-02 14:55:00 [place] present 10:30: [id number] 00 Safety risk for Safety Resolve 2018-112019-10-10 Freida hospitaliza d 12-02 14:55:00 [place] tion 10:30: [id number] 00 Medication oral med Meds Resolve 2018-112019-10-13 Freida assistance d 12-02 10:23:00 [place] required 10:30: [id number] 00 Musculoskel transfer Musculoske Resolve 2018-112019-10-13 Freida etal assistance letal d 12-02 10:23:00 [place] required 10:30: [id number] 00 Musculoskel requires Musculoske Resolve 2018-112019-10-13 Freida etal human letal d 12-02 10:23:00 [place] assist to 10:30: [id number] leave home 00 Cardio edema Cardiovasc Active 2018-11 Radha ular 1-15 [place] 14:55: RN 00 Safety risk for Safety Resolve 2018-112019-10-16 Radha hospitaliza d 12-13 14:28:00 [place] tion 10:23: RN 00 Medication oral med Meds Active 2018-11 Radha assistance 12-16 [place] required 14:28: RN 00 Safety knowledge/s Safety Active 2018-11 Evelyn kill 12-17 [place] deficit: pt 10:00: [id number] 00 Safety risk for Safety Resolve 2018-112019-10-31 Evelyn hospitaliza d 12-17 14:05:00 [place] tion 10:00: [id number] 00 Social knowledge/s RUSLAN: Active 2018-11 Evelyn Services kill Social 12-17 [place] deficit - Services 10:00: [id number] pt 00 Safety can be left Safety Active 2018-11 Shanelle alone for 12-22 [place] only short 12:04: [id number] periods 00 Safety fire risk Safety Resolve 2018-112019-10-31 Yesy present d 12-27 14:05:00 [place] RN 11:50: 00 Safety fire risk: Safety Resolve 2018-112019-10-31 Yesy smoking/O2 d 12-27 14:05:00 Carrier RN in use 11:50: 00 Medication potential Meds Active 2018-11 Yesy clinically 12-27 Carrier RN significant 11:50: medication 00 issue Elimination urinary Eliminatio Resolve 2018-112019-10-31 Radha incontinenc n d - 14:05:00 [place] e 14:05: RN 00 Activity self-care Activity Resolve 2018-112019-10-31 Radha deficit d - 14:05:00 [place] 14:05: RN 00 Safety fall risk Safety Resolve 2018-112019-10-31 Radha factor d - 14:05:00 [place] present 14:05: RN 00 Balance/End balance/guidance services coordinator PT/OT: Active 2018-11 Georges urance rdination Balance/En 01-01 estelle Ray durance 15:00: PT 00 [id number] Gait/Locomo gait PT/OT: Active 2018-11 Georges tion deficit Gait/Locom 2-06 Cory, problems otion 15:00: PT 00 857756-5 Elimination urinary Eliminatio Active 2018-11 Radha incontinenc n 2-09 [place] e 13:20: RN 00 Allergies, Adverse Reactions, Alerts Allergy Allergy Type Status Severity Reaction(s) Onset Inactive Treating Comments Name Date Date Clinician codeine Base Active Unknown Reaction 2019-03 [place] Ingredient Quan Medications Ordered Filled Start Stop [...] Yes Jander Unknown Unknown Ellipta Ellipta - MD,Cinthia 62.5 62.5 mcg/actuati mcg/actuati on powder [...] 20 mg 12-10 Cinthia ELLISON tablet tablet predniSONE predniSONE 2018-11 Yes Jander Unknown Unknown 10 mg 10 mg 12-24 Cinthia ELLISON tablet tablet azithromyci azithromyci 2018-11- Yes Jander Unknown Unknown n 250 mg n 250 mg 01-01- Cinthia ELLISON tablet tablet ibuprofen ibuprofen 2018-11 Yes Jander [...] MD,Cinthia tablet,manny tablet,manny yed release yed release Vital Signs Vital Name Observation Time Observation Value Comments SYSTOLIC mm[Hg] 2019-11-03 18:09:16 142 mm[Hg] mm[Hg] Method: Sit DIASTOLIC mm[Hg] 2019-11-03 18:09:16 70 mm[Hg] mm[Hg] Method: Sit PULSE 2019-11-03 18:09:16 85 /min /min RESP RATE 2019-11-03 18:09:16 22 /min /min TEMP 2019-11-03 18:09:16 98.7 [degF] Procedures This patient has no known procedures. Results This patient has no known results.
--- OUTSIDE RECORDS SUMMARY | 2019-12-01 08:14 | XMS REPORT ---
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 Diagnosis Active Radha (current) (current) [place] use [...] Resolve 2018-112019-10-13 Freida pain d 12-02 10:23:00 [place] 10:30: [id number] 00 Respiratory dyspnea Respirator Active 2018-11 Freida present y 12-02 [place] 10:30: [id number] 00 Respiratory oxygen Respirator Active 2018-11 Freida treatments y 12-02 [place] in home 10:30: [id number] 00 Respiratory knowledge/s Respirator Active 2018-11 Freida kill y 12-02 [place] deficit: pt 10:30: [id number] 00 Respiratory knowledge/s Respirator Active 2018-11 Freida kill y 12-02 [place] deficit: cg 10:30: [id number] 00 Respiratory lung sounds Respirator Active 2018-11 Freida deficit y 12-02 [place] 10:30: [id number] 00 Respiratory smoker Respirator Active 2018-11 Freida y 12-02 [place] 10:30: [id number] 00 Respiratory nebulizer Respirator Active 2018-11 Freida treatment y 12-02 [place] in home 10:30: [id number] 00 Endo/Benjamin anti-coagul Endo/Benjamin Resolve 2018-112019-10-06 Freida ation d 12-02 13:19:00 [place] therapy 10:30: [id number] 00 Sensory impaired Sensory Active 2018-11 Freida hearing 12-02 [place] 10:30: [id number] 00 Integument skin Integument Resolve 2018-112019-10-08 Freida integrity d 12-02 14:40:00 [place] risk 10:30: [id number] 00 Nutrition nutritional Nutrition Resolve 2018-112019-10-13 Freida restriction d 12-02 10:23:00 [place] s 10:30: [id number] 00 Elimination urinary Eliminatio Resolve 2018-112019-10-06 Freida incontinenc n d 12-02 13:19:00 [place] e 10:30: [id number] 00 Neuro confusion Neuro/Emot Active 2018-11 Freida present ion 12-02 [place] 10:30: [id number] 00 Neuro anxiety Neuro/Emot Active 2018-11 Freida present ion 12-02 [place] 10:30: [id number] 00 Neuro depressive Neuro/Emot Active 2018-11 Freida feelings ion 12-02 [place] present 10:30: [id number] 00 Neuro impaired Neuro/Emot Active 2018-11 Freida decision-ma ion 12-02 [place] claritza 10:30: [id number] 00 Activity ADL Activity Active 2018-11 Freida assistance 12-02 [place] required 10:30: [id number] 00 Activity self-care Activity Resolve 2018-112019-10-06 Freida deficit d 12-02 13:19:00 [place] 10:30: [id number] 00 Safety cannot be Safety Active 2018-11 Freida left alone 12-02 [place] 10:30: [id number] 00 Safety knowledge/s Safety Resolve 2018-112019-10-16 Freida kill d 12-02 14:28:00 [place] deficit: pt 10:30: [id number] 00 Safety fall risk Safety Resolve 2018-112019-10-10 Freida factor d 12-02 14:55:00 [place] present 10:30: [id number] 00 Safety risk for Safety Resolve 2018-112019-10-10 Freida hospitaliza d 12-02 14:55:00 [place] tion 10:30: [id number] 00 Medication oral med Meds Resolve 2018-112019-10-13 Freida assistance d 12-02 10:23:00 [place] required 10:30: [id number] 00 Musculoskel transfer Musculoske Resolve 2018-112019-10-13 Freida etal assistance letal d 12-02 10:23:00 [place] required 10:30: [id number] 00 Musculoskel requires Musculoske Resolve 2018-112019-10-13 Freida etal human letal d 12-02 10:23:00 [place] assist to 10:30: [id number] leave home 00 Cardio edema Cardiovasc Active 2018-11 Radha ular 12-10 [place] 14:55: RN 00 Safety risk for Safety Resolve 2018-112019-10-16 Radha hospitaliza d 12-13 14:28:00 [place] tion 10:23: RN 00 Medication oral med Meds Active 2018-11 Radha assistance 12-16 [place] required 14:28: RN 00 Safety knowledge/s Safety Active 2018-11 Evelyn kill 12-17 [place] deficit: pt 10:00: [id number] 00 Safety risk for Safety Resolve 2018-112019-10-31 Evelyn hospitaliza d 12-17 14:05:00 [place] tion 10:00: [id number] 00 Social knowledge/s RUSLAN: Active 2018-11 Evelyn Services kill Social 12-17 [place] deficit - Services 10:00: [id number] pt 00 Safety can be left Safety Active 2018-11 Shanelle pool for 12-22 [place] only short 12:04: [id number] periods 00 Safety fire risk Safety Resolve [...] 14:05:00 [place] present 14:05: RN 00 Balance/End balance/public information coordinator PT/OT: Active 2018-11 Georges urance rdination [...] 2018-11 Evelyn hospitaliza 01-08 [place] tion 08:30: [id number] 00 Allergies, Adverse Reactions, Alerts Allergy Allergy Type Status Severity Reaction(s) Onset Inactive Treating Comments Name Date Date Clinician codeine Base Active Unknown Reaction 2019-03 [place] Ingredient Quan Medications Ordered Filled Start Stop [...] Observation Time Observation Value Comments RESP RATE 2019-11-06 18:09:19 22 /min /min Procedures This patient has no known procedures. Results This patient has no known results.
--- OUTSIDE RECORDS SUMMARY | 2019-12-01 08:14 | XMS REPORT ---
:1945 Author Organization [facility] Care Team Providers Name Role Phone Unavailable Unavailable Unavailable Problems Condition Condition Condition Status Onset Resolution Last Treating Comments Name Details Category Date Date Treatment Clinician Date Pain frequent Pain Mgmt Resolve 2018-112019-10-13 Freida pain d 12-02 10:23:00 [place] 10:30: [id number] 00 Respiratory dyspnea Respirator Active 2018-11 Freida present y 12-02 [place] 10:30: [id number] 00 Respiratory oxygen Respirator Active 2018-11 Freida treatments y 12-02 [place] in home 10:30: [id number] 00 Respiratory knowledge/s Respirator Active 2018-11 Freida kill y 12-02 [place] deficit: pt 10:30: [id number] 00 Respiratory knowledge/s Respirator Active 2018-11 Freida kill y 12-02 [place] deficit: cg 10:30: [id number] 00 Respiratory lung sounds Respirator Active 2018-11 Freida deficit y 12-02 [place] 10:30: [id number] 00 Respiratory smoker Respirator Active 2018-11 Freida y 12-02 [place] 10:30: [id number] 00 Respiratory nebulizer Respirator Active 2018-11 Freida treatment y 12-02 [place] in home 10:30: [id number] 00 Endo/Benjamin anti-coagul Endo/Benjamin Resolve 2018-112019-10-06 Freida ation d 12-02 13:19:00 [place] therapy 10:30: [id number] 00 Sensory impaired Sensory Active 2018-11 Freida hearing 12-02 [place] 10:30: [id number] 00 Integument skin Integument Resolve 2018-112019-10-08 Freida integrity d 12-02 14:40:00 [place] risk 10:30: [id number] 00 Nutrition nutritional Nutrition Resolve 2018-112019-10-13 [place] restriction d 12-02 10:23:00 [place] s 10:30: [id number] 00 Elimination urinary Eliminatio Resolve 2018-112019-10-06 Freida incontinenc n d 12-02 13:19:00 [place] e 10:30: [id number] 00 Neuro confusion Neuro/Emot Active 2018-11 Freida present ion 12-02 [place] 10:30: [id number] 00 Neuro anxiety Neuro/Emot Active 2018-11 [place] present ion 12-02 [place] 10:30: [id number] 00 Neuro depressive Neuro/Emot Active 2018-11 Freida feelings ion 12-02 [place] present 10:30: [id number] 00 Neuro impaired Neuro/Emot Active 2018-11 Freida decision-ma ion 12-02 [place] claritza 10:30: [id number] 00 Activity ADL Activity Active 2018-11 Freida assistance 12-02 [place] required 10:30: [id number] 00 Activity self-care Activity Resolve 2018-112019-10-06 [place] deficit d 12-02 13:19:00 [place] 10:30: [id number] 00 Safety cannot be Safety Active 2018-11 Freida left alone 12-02 [place] 10:30: [id number] 00 Safety knowledge/s Safety Resolve 2018-112019-10-16 Fre[place] kill d 12-02 14:28:00 [place] deficit: pt 10:30: [id number] 00 Safety fall risk Safety Resolve 2018-112019-10-10 Freida factor d 12-02 14:55:00 [place] present 10:30: [id number] 00 Safety risk for Safety Resolve 2018-112019-10-10 Freida hospitaliza d 12-02 14:55:00 [place] tion 10:30: [id number] 00 Medication oral med Meds Resolve 2018-112019-10-13 Freida assistance d 12-02 10:23:00 [place] required 10:30: [id number] 00 Musculoskel transfer Musculoske Resolve 2018-112019-10-13 Freida etal assistance letal d 12-02 10:23:00 [place] required 10:30: [id number] 00 Musculoskel requires Musculoske Resolve 2018-112019-10-13 Freida etal human letal d 12-02 10:23:00 [place] assist to 10:30: [id number] leave home 00 Cardio edema Cardiovasc Active 2018-11 Radha ular 1-15 [place] 14:55: RN 00 Safety risk for Safety Resolve 2018-112019-10-16 Radha hospitaliza d -18 14:28:00 [place] tion 10:23: RN 00 Medication oral med Meds Active 2018-11 Radha assistance 12-16 [place] required 14:28: RN 00 Safety knowledge/s Safety Active 2018-11 Evelyn kill 12-17 [place] deficit: pt 10:00: [id number] 00 Safety risk for Safety Active 2018-11 Evelyn hospitaliza 12-17 [place] tion 10:00: [id number] 00 Social knowledge/s RUSLAN: Active 2018-11 Evelyn Services kill Social 12-17 [place] deficit - Services 10:00: [id number] pt 00 Safety can be left Safety Active 2018-11 Shanelle alone for 12-22 Ernestina only short 12:04: [id number] periods 00 Safety fire risk Safety Active 2018-11 Yesy present 2- Carrier RN 11:50: 00 Safety fire risk: Safety Active 2018-11 Yesy smoking/O2 2- Carrier RN in use 11:50: 00 Medication potential Meds Active 2018-11 Yesy clinically 2- Carrier RN significant 11:50: medication 00 issue Elimination urinary Eliminatio Active 2018-11 Rd[place] incontinenc n 2-06 [place] e 14:05: RN 00 Safety fall risk Safety Active 2018-11 Georges factor 2-06 Cory, present 15:00: PT 00 [id number] Balance/End balance/transfer coordinator PT/OT: Active 2018-11 Georges urance rdination Balance/En - Cory, deficit durance 15:00: PT 00 [id number] Gait/Locomo gait PT/OT: Active 2018-11 Georges tion deficit Gait/Locom -06 Cory, problems otion 15:00: PT 00 [id number] Allergies, Adverse Reactions, Alerts Allergy Allergy Type Status Severity Reaction(s) Onset Inactive Treating Comments Name Date Date Clinician codeine Base Active Unknown Reaction 2019-03 Comfort Ingredient Unknown Quan Medications Ordered Filled Start Stop Current [...] Dose 81 mg Dose 81 mg 12-02 MDCinthia tablet,manny tablet,manny yed release yed release amLODIPine [...] Jander Unknown Unknown mg capsule mg capsule - ,Cinthia Miralax 17 Miralax 17 2018-11 Yes Jander Unknown Unknown gram/dose gram/dose 12-02 ,Cinthia oral powder oral powder ipratropium ipratropium 2018-11 Yes Jander Unknown Unknown -albuterol -albuterol - MD,Cinthia 0.5 mg-3 0.5 mg-3 mg(2.5 mg mg(2.5 [...] mg 12-10 ,Cinthia tablet tablet predniSONE predniSONE 2018-11 Yes Jander Unknown Unknown 10 mg 10 mg 12-24 MD,Cinthia tablet tablet Vital Signs Vital Name Observation Time Observation Value Comments SYSTOLIC mm[Hg] 2019-11-01 18:09:14 142 mm[Hg] mm[Hg] Method: Sit DIASTOLIC mm[Hg] 2019-11-01 18:09:14 80 mm[Hg] mm[Hg] Method: Sit PULSE 2019-11-01 18:09:14 86 /min /min RESP RATE 2019-11-01 18:09:14 22 /min /min TEMP 2019-11-01 18:09:14 98.3 [degF] Procedures This patient has no known procedures. Results This patient has no known results.
--- OUTSIDE RECORDS SUMMARY | 2019-12-01 08:15 | XMS REPORT ---
:1945 Author Organization [facility] Care Team Providers Name Role Phone Unavailable Unavailable Unavailable Problems Condition Condition Condition Status Onset Resolution Last Treating Comments Name Details Category Date Date Treatment Clinician Date Pain frequent Pain Mgmt Resolve 2018-112019-10-13 Freida pain d 12-02 10:23:00 [place] 10:30: [id number] 00 Respiratory dyspnea Respirator Active 2018-11 Freida present y 12-02 [place] 10:30: [id number] 00 Respiratory oxygen Respirator Active 2018-11 Freida treatments y 12-02 [place] in home 10:30: [id number] 00 Respiratory knowledge/s Respirator Active 2018-11 Freida kill y 12-02 [place] deficit: pt 10:30: [id number] 00 Respiratory knowledge/s Respirator Active 2018-11 Freida kill y 12-02 [place] deficit: cg 10:30: [id number] 00 Respiratory lung sounds Respirator Active 2018-11 Freida deficit y 12-02 [place] 10:30: [id number] 00 Respiratory smoker Respirator Active 2018-11 Freida y 12-02 [place] 10:30: [id number] 00 Respiratory nebulizer Respirator Active 2018-11 Freida treatment y 12-02 [place] in home 10:30: [id number] 00 Endo/Benjamin anti-coagul Endo/Benjamin Resolve 2018-112019-10-06 Freida ation d 12-02 13:19:00 [place] therapy 10:30: [id number] 00 Sensory impaired Sensory Active 2018-11 Freida hearing 12-02 [place] 10:30: [id number] 00 Integument skin Integument Resolve 2018-112019-10-08 Freida integrity d 12-02 14:40:00 [place] risk 10:30: [id number] 00 Nutrition nutritional Nutrition Resolve 2018-112019-10-13 Freida restriction d 12-02 10:23:00 [place] s 10:30: [id number] 00 Elimination urinary Eliminatio Resolve 2018-112019-10-06 Freida incontinenc n d 12-02 13:19:00 [place] e 10:30: [id number] 00 Neuro confusion Neuro/Emot Active 2018-11 Freida present ion 12-02 [place] 10:30: [id number] 00 Neuro anxiety Neuro/Emot Active 2018-11 Freida present ion 12-02 [place] 10:30: [id number] 00 Neuro depressive Neuro/Emot Active 2018-11 Freida feelings ion 12-02 [place] present 10:30: [id number] 00 Neuro impaired Neuro/Emot Active 2018-11 Freida decision-ma ion 12-02 [place] claritza 10:30: [id number] 00 Activity ADL Activity Active 2018-11 Freida assistance 12-02 [place] required 10:30: [id number] 00 Activity self-care Activity Resolve 2018-112019-10-06 Fre[place] deficit d 12-02 13:19:00 [place] 10:30: [id number] 00 Safety cannot be Safety Active 2018-11 Freida left alone 12-02 [place] 10:30: [id number] 00 Safety knowledge/s Safety Resolve 2018-112019-10-16 Freida kill d 12-02 14:28:00 [place] deficit: pt 10:30: [id number] 00 Safety fall risk Safety Resolve 2018-112019-10-10 Freida factor d 12-02 14:55:00 [place] present 10:30: [id number] 00 Safety risk for Safety Resolve 2018-112019-10-10 Freida hospitaliza d 12-02 14:55:00 [place] tion 10:30: [id number] 00 Medication oral med Meds Resolve 2018-112019-10-13 Freida assistance d 12-02 10:23:00 [place] required 10:30: [id number] 00 Musculoskel transfer Musculoske Resolve 2018-112019-10-13 Freida etal assistance letal d 12-02 10:23:00 [place] required 10:30: [id number] 00 Musculoskel requires Musculoske Resolve 2018-112019-10-13 Freida etal human letal d 12-02 10:23:00 [place] assist to 10:30: [id number] leave home 00 Cardio edema Cardiovasc Active 2018-11 Radha ular 1-15 [place] 14:55: RN 00 Safety risk for Safety Resolve 2018-112019-10-16 Radha hospitaliza d -18 14:28:00 [place] tion 10:23: RN 00 Medication oral med Meds Active 2018-11 Radha assistance 12-16 [place] required 14:28: RN 00 Safety knowledge/s Safety Active 2018-11 Evelyn kill 12-17 [place] deficit: pt 10:00: [id number] 00 Safety risk for Safety Active 2018-11 Evelyn hospitaliza 12-17 [place] tion 10:00: [id number] 00 Social knowledge/s RUSLAN: Active 2018-11 Evelyn Services kill Social 12-17 [place] deficit - Services 10:00: [id number] pt 00 Safety can be left Safety Active 2018-11 Shanelle alone for 12-22 [place] only short 12:04: [id number] periods 00 Safety fire risk Safety Active 2018-11 Yesy present 2- Carrier RN 11:50: 00 Safety fire risk: Safety Active 2018-11 Yesy smoking/O2 2- Carrier RN in use 11:50: 00 Medication potential Meds Active 2018-11 Yesy clinically 2- Carrier RN significant 11:50: medication 00 issue Elimination urinary Eliminatio Active 2018-11 Radha incontinenc n 2-06 [place] e 14:05: RN 00 Safety fall risk Safety Active 2018-11 Georges factor 2-06 Cory, present 15:00: PT 00 [id number] Balance/End balance/policy service coordinator PT/OT: Active 2018-11 Georges urance rdination Balance/En - Cory, deficit durance 15:00: PT 00 [id number] Gait/Locomo gait PT/OT: Active 2018-11 Georges tion deficit Gait/Locom -06 Cory, problems otion 15:00: PT 00 [id number] Allergies, Adverse Reactions, Alerts Allergy Allergy Type Status Severity Reaction(s) Onset Inactive Treating Comments Name Date Date Clinician codeine Base Active Unknown Reaction 2019-03 Hanson Ingredient Unknown Quan Medications Ordered Filled Start [...]
[2019-12-01 08:35] LABS: ABS Eosinophils 0.2 10^3/ul (0-0.6); ABS Lymphocytes 0.9 10^3/ul (1.0-4.8); ABS Monocytes 0.7 10^3/ul (0-0.8); ABS Neutrophils 10.8 10^3/ul (1.5-7.7); Eosinophil % 1.3 %; Hematocrit 37 % (35-47); Hemoglobin 12.1 g/dL (12.0-16.0); Mean Corpuscular HGB Conc 33 g/dL (31-36); Mean Corpuscular Hemoglobin 29 pg (27-31); Mean Corpuscular Volume 89 fL (80-97); Nucleated Red Blood Cells % 0.1; Platelet Count 472 10^3/uL (150-450); Red Blood Count 4.16 10^6 /uL (3.70-4.87); Red Cell Distribution Width 17 % (10-15); White Blood Count 12.7 10^3/uL (3.5-10.8)
[2019-12-01 08:54] LABS: ALT 17 U/L (7-52); AST 18 U/L (13-39); Albumin 3.7 g/dL (3.2-5.2); Albumin/Globulin Ratio 1.1 (1-3); Alkaline Phosphatase 97 U/L (34-104); Anion Gap 8 mmol/L (2-11); BUN/Creatinine Ratio 19.5 (8-20); Blood Urea Nitrogen 16 mg/dL (6-24); CO2 Carbon Dioxide 22 mmol/L (22-32); Calcium 8.4 mg/dL (8.6-10.3); Chloride 107 mmol/L (101-111); EGFR African American 82.5 (>60); EGFR Non-African American 68.1 (>60); Globulin 3.3 g/dL (2-4); Glucose 120 mg/dL (70-100); Potassium 4.6 mmol/L (3.5-5.0); Sodium 137 mmol/L (135-145)
[2019-12-01 08:59] LABS: Troponin I 0.06 ng/mL (<0.03)
[2019-12-01] MEDS ORDERED: Cefepime 1 GM in Dextrose(*) 1 GM/50 ML q12h (Duplex) IV ONE (09:00)
[2019-12-01] MEDS ORDERED: Acetaminophen TAB* 325 MG PO ONE (09:11)
[2019-12-01] MEDS ORDERED: Iohexol 350* (CONTRAST) 500 ML MDV IV ONE (09:20)
[2019-12-01] MEDS ORDERED: Iodixanol* (CONTRAST) 320 MG/ML 100 ML SDV IV ONE (09:30)
[2019-12-01 10:37] LABS: Influenza B Molecular POSITIVE (Negative)
[2019-12-01] MEDS ORDERED: Oseltamivir CAP* 75 MG CAP PO ONE (10:40)
[2019-12-01] MEDS ORDERED: Albuterol HFA INHALER* 8 gm MDI INH PRN (11:21)
[2019-12-01] MEDS ORDERED: Albuterol 2.5 MG/3 ML NEB.SOL* (0.083%) INH ONE (11:59)
[2019-12-01] MEDS: Albuterol/Ipratropium NEB.SOL* Albuterol 2.5 MG/Ipratropium 0.5 MG 3 ML INH PRN ×2 (12:22→21:39)
--- NOTE | 2019-12-01 14:08 | HP ---
CC: Dr. Winston * [facility] MEDICINE HISTORY AND PHYSICAL: DATE OF ADMISSION: 12/01/19 PROVIDER: Yvonne Vasquez NP PRIMARY CARE PROVIDER: Dr. Winston. ATTENDING PHYSICIAN WHILE IN THE HOSPITAL: Dr. Misti Prather * (dictated by Yvonne Vasquez NP). CHIEF COMPLAINT: Shortness of breath and cough. HISTORY OF PRESENT ILLNESS: Ms. Case is a 74-year-old female with a past medical history significant for primary lateral sclerosis, who is wheelchair- bound, long- term history of a pack-a-day smoking associated with COPD, who was recently admitted on 10/26/19 with pneumonia, who presented to the emergency room with complaints of worsening shortness of breath and cough times a week, progressively worse since yesterday, positive exposure to the flu. Per the patient and caregiver, the patient has had a progressively worsening shortness of breath and cough x1 week that is nonproductive. Denies any fevers, does report some chills. Due to the progressively worsening shortness of breath, the patient presented to the emergency room for further evaluation. While in the emergency room, the patient had routine lab work drawn and she was found to have leukocytosis with a white count of 12.7 and positive for Influenza B. She was also found to be with increased oxygen requirement above her baseline of 2 L at night only. Due to these findings, Hospital Medicine was asked to evaluate her for admission. PAST MEDICAL HISTORY: Significant for: 1. Primary lateral sclerosis with functional quadriplegia, wheelchair-bound. 2. Arthritis. 3. Chronic muscle spasms, on baclofen pump. 4. COPD with long-term smoking history, on chronic 2 L nasal cannula at night. 5. History of left kidney cancer, status post nephrectomy. 6. History of colon cancer, status post bowel resection. 7. Chronic osteoarthritis. 8. Radiation for some skin cancer. 9. Chronic urinary incontinence. PAST SURGICAL HISTORY: 1. Hysterectomy. 2. Lumbar spine surgery. 3. Baclofen pump insertion. 4. Carpal tunnel surgeries. 5. Bladder repair. 6. Cataract surgery of the left eye. 7. Colon resection. 8. Lumpectomy of the right breast. 9. History of cardiac catheterization. 10. Left nephrectomy. MEDICATIONS: Home medications include: 1. Docusate 100 mg p.o. b.i.d. p.r.n. 2. DuoNeb 1 neb every 4 hours as needed for shortness of breath. 3. Guaifenesin 400 mg p.o. daily p.r.n. 4. Incruse Ellipta 1 inhaled daily. 5. Salmeterol Diskus 1 puff inhaled b.i.d. 6. Amlodipine 10 mg p.o. q. p.m. 7. Primidone 250 mg p.o. b.i.d. 8. Mirtazapine 15 mg at bedtime. 9. Atorvastatin 20 mg at bedtime. 10. Detrol LA 4 mg p.o. daily. 11. Mirabegron 50 mg p.o. daily. 12. Losartan 100 mg p.o. daily. 13. Fluoxetine 20 mg p.o. daily. 14. Vitamin B 25 mcg p.o. daily. 15. Aspirin 81 mg p.o. daily. 16. Prednisone 10 mg p.o. daily. 17. Omeprazole 20 mg p.o. daily. 18. MiraLAX 8.5 g p.o. daily. 19. Augmentin 875 one tab p.o. b.i.d. x7 days, started on Sunday11/28/19. 20. Tussin Cough 30 mg at night, 20 mg in the a.m. as needed. 21. Ibuprofen 400 mg p.o. q.8 hours as needed for pain. ALLERGIES: To CODEINE. FAMILY HISTORY: Mother is alive at the age of 94. Father from esophageal cancer and suicide. SOCIAL HISTORY: The patient is a pack-a-day of smoker. She denies any drug or alcohol use. She lives at home with supportive aides. Surrogate decision maker in the event she is unable to make her own decisions is her sister, Sue Holcomb. She is a DNR/DNI. A MOLST form has been completed and placed on the chart. REVIEW OF SYSTEMS: The patient denies any fever. She does report occasional chills. Denies any chest pain or edema. She does report a nonproductive cough. No hemoptysis. She does report worsening shortness of breath. No nausea , vomiting, diarrhea, or abdominal pain. Denies any gross hematuria or dysuria. Denies any focal weakness or sensory loss. Denies any visual complaints, dysphagia, arthralgias, or myalgias. Denies any rashes, lesions, psychosis, or anxiety. PHYSICAL EXAMINATION GENERAL: At this time, Ms. Augustin is a 74-year-old female. She is alert and oriented, resting on the stretcher in the emergency room. She is hard of hearing. She is in mild respiratory distress with audible expiratory wheezes. VITAL SIGNS: Blood pressure 119/60, heart rate 98, respirations 26, O2 saturation 94%, temperature was 100.6. HEENT: Head is atraumatic, normocephalic. Eyes: EOMs are intact. Sclerae are anicteric and not pale. Oral mucosa is moist. NECK: Supple. LUNGS: With inspiratory and expiratory wheezes and coarse rhonchi throughout bilaterally. CARDIAC: S1 and S2. She has regular rate and rhythm. No murmurs, rubs or gallops. ABDOMEN: Soft and nontender. Bowel sounds are present x4. EXTREMITIES: She is able to move all 4 extremities. She has clubbing or cyanosis. She does have mild edema noted to her lower extremities and she does have an orthopedic boot noted to the left lower leg. NEUROLOGIC: She is awake, alert, and oriented x3. Speech is clear. Thought process is intact. There is no gross focal deficit. SKIN: Intact. DIAGNOSTIC STUDIES/LAB DATA: WBCs are 12.7, RBCs 4.16, hemoglobin 12.1, hematocrit 37, platelet count 472. Venous blood gas: The pH was 7, pCO2 was 38 , pO2 was 87, HCO3 was 24.1. O2 saturation 99. Sodium 137, potassium 4.6, chloride 107, carbon dioxide is 22, anion gap is 8, BUN was 16, creatinine 0.82 , glucose is 120, lactic acid 1.8, calcium 8.4. ASTs were 18, ALTs were 17, alkaline phosphatase 97. Troponin was 0.06. BNP was 29. Influenza B was positive. Chest x-ray, radiologist's impression: Elevated right hemidiaphragm with no definite pneumonia. She had a CTA of the chest and thorax, no compelling evidence of pulmonary embolism, stigmata for COPD, mild bibasilar atelectasis. She had an electrocardiogram, which showed sinus tachycardia at a rate of 103. ASSESSMENT AND PLAN: Ms. Augustin is a 74-year-old female with past medical history significant for primary lateral sclerosis with functional quadriplegia , who is wheelchair bound and chronic pack-a-day smoker with obstructive cardiopulmonary disease, who presented to the emergency room with complaints of worsening shortness of breath and cough, found to be positive for influenza. Our plans are as follows: 1. Sepsis. The patient does meet sepsis criteria with leukocytosis, tachycardic, tachypnea and elevated white count of 12.7. I suspect this is related to underlying influenza. We will treat her with Tamiflu. I will get blood cultures. 2. Acute on chronic hypoxic respiratory failure, related to chronic obstructive pulmonary disease exacerbation caused by influenza. The patient will be placed on Tamiflu. We will continue DuoNeb q.4 hours as needed for shortness of breath and wheezing. I will place her on Solu-Medrol 40 mg IV q.12 hours. The patient will be continued on Augmentin 875 mg b.i.d. as she was started on this by her primary care provider on Sunday. I will send a urine for legionella and Strep pneumoniae. She can continue oxygen as needed to maintain O2 saturations greater than 92%. 3. Influenza. The patient will continue on Tamiflu 75 mg p.o. b.i.d. x5 days. 4. Elevated Troponin. Likely related to demand ischemia from COPD exacerbation and underlying sepsis. Will trend troponin and repeat EKG in the AM. 4. Chronic muscle spasms. The patient will continue with baclofen pump. 5. FEN. She can have heart-healthy, caffeine-okay diet. 6. Code status. She is a DNR/DNI. MOLST form was completed and placed on the chart. 7. DVT prophylaxis. I will place her on heparin subcu. 8. Disposition. The patient will be admitted on on observation. TIME SPENT: Time spent on this admission was 60 minutes. Greater than half of that time was spent at the bedside reviewing the events leading thus far to her hospitalization, performing physical exam and reviewing my plan of care. I have discussed with my attending, Dr. Misti Prather; she is in agreement with my plan. YVONNE VASQUEZ, ADITI [id number]/[facility] #: [id number] [facility]
[2019-12-01] MEDS: Heparin VIAL(*) 5000 UNITS/ML VIAL (FIVE THOUSAND) SUBCUT SCH ×2 (14:51→21:42)
[2019-12-01 15:54] LABS: Urine Appearance Cloudy; Urine Bilirubin Negative (Negative); Urine Blood 3+ (Negative); Urine Color Yellow; Urine Glucose Negative (Negative); Urine Ketones Negative (Negative); Urine Nitrite Negative (Negative); Urine Protein 1+(30 mg/dL) (Negative); Urine Specific Gravity 1.029 (1.010-1.030); Urine Urobilinogen Negative (Negative)
[2019-12-01 16:02] LABS: Urine Bacteria 1+ (Absent); Urine Red Blood Cell 3+(>10/hpf) (Absent); Urine Squamous Epithelial Cell Present (Absent); Urine White Blood Cell Trace(0-5/hpf) (Absent)
[2019-12-01] MEDS: Atorvastatin* 20 MG TAB PO SCH (17:13)
[2019-12-01] MEDS: amLODIPine TAB* 5 MG PO SCH (17:13)
[2019-12-01] MEDS: [UNRECOGNIZED DRUG - OTHER] INH SCH (21:40)
[2019-12-01] MEDS: PRIMIDONE 250 MG PO SCH (21:41)
[2019-12-01] MEDS: Oseltamivir CAP* 75 MG CAP PO SCH (21:41)
[2019-12-01] MEDS: methylPREDNISolone SOD 40 MG* 1 ML VIAL IV SCH (21:42)
[2019-12-01] MEDS: Mirtazapine TAB* 15 MG PO SCH (21:42)
[2019-12-01] MEDS: Amoxicillin/Clavulanate TAB* 875 MG PO SCH (21:42)
[2019-12-01 23:34] LABS: Troponin I 0.04 ng/mL (<0.03)
[2019-12-02] MEDS: Heparin VIAL(*) 5000 UNITS/ML VIAL (FIVE THOUSAND) SUBCUT SCH ×3 (05:56→21:32)
[2019-12-02 05:59] LABS: ABS Lymphocytes 1.1 10^3/ul (1.0-4.8); ABS Monocytes 0.5 10^3/ul (0-0.8); ABS Neutrophils 6.4 10^3/ul (1.5-7.7); Eosinophil % 0.1 %; Hematocrit 34 % (35-47); Hemoglobin 11.3 g/dL (12.0-16.0); Lymphocyte % 13.6 %; Mean Corpuscular HGB Conc 33 g/dL (31-36); Mean Corpuscular Hemoglobin 30 pg (27-31); Mean Corpuscular Volume 89 fL (80-97); Mean Platelet Volume 6.8 fL (7.4-10.4); Nucleated Red Blood Cells % 0.1; Platelet Count 419 10^3/uL (150-450); Red Blood Count 3.83 10^6 /uL (3.70-4.87); Red Cell Distribution Width 17 % (10-15)
[2019-12-02 06:13] LABS: BUN/Creatinine Ratio 21.3 (8-20); Calcium 8.3 mg/dL (8.6-10.3); EGFR African American 84.8 (>60); EGFR Non-African American 70.1 (>60); Potassium 4.7 mmol/L (3.5-5.0)
[2019-12-02] MEDS: FLUoxetine CAP* 20 MG PO SCH (09:06)
[2019-12-02] MEDS: Acetaminophen TAB* 325 MG PO PRN ×2 (09:06→13:39)
[2019-12-02] MEDS: Amoxicillin/Clavulanate TAB* 875 MG PO SCH ×2 (09:06→20:44)
[2019-12-02] MEDS: Aspirin EC TAB* 81 MG TAB.EC PO SCH (09:06)
[2019-12-02] MEDS: Docusate CAP* 100 MG PO SCH (09:06)
[2019-12-02] MEDS: Pantoprazole TAB * 40 MG TAB PO SCH (09:07)
[2019-12-02] MEDS: Losartan TAB* 25 MG PO SCH (09:07)
[2019-12-02] MEDS: Oseltamivir CAP* 75 MG CAP PO SCH ×2 (09:07→20:43)
[2019-12-02] MEDS: MIRABEGRON 50 MG PO SCH (09:08)
[2019-12-02] MEDS: methylPREDNISolone SOD 40 MG* 1 ML VIAL IV SCH ×2 (09:08→20:43)
[2019-12-02] MEDS: Oxybutynin XL TAB* 5 MG PO SCH (09:09)
[2019-12-02] MEDS: Polyethylene Glycol 3350* 17 GM PACKET PO SCH (09:10)
[2019-12-02] MEDS: PRIMIDONE 250 MG PO SCH ×2 (09:10→20:44)
[2019-12-02] MEDS: Albuterol/Ipratropium NEB.SOL* Albuterol 2.5 MG/Ipratropium 0.5 MG 3 ML INH PRN (10:07)
--- NOTE | 2019-12-02 10:49 | PN ---
Subjective Date of Service: 12/02/19 Interval History: Ms. Augustin is not feeling well today. She is still having a hard time breathing. private duty aide at bedside notes that breathing is slightly improved since neb this morning. She does have some baseline wheezing, but this is significantly worse than usual. Denies CP. No concerns from nursing. Family History: Unchanged from Admission Social History: Unchanged from Admission Past Medical History: Unchanged from Admission Objective Active Medications: Acetaminophen (Tylenol Tab*) 650 mg PO Q4H PRN PAIN - MILD Albuterol (Ventolin Hfa Inhaler*) 2 puff INH Q4H PRN SOB/WHEEZING Albuterol/Ipratropium (Duoneb (Albuterol 2.5 Mg/Ipratropium 0.5 Mg)) 1 neb INH [id number] AWAKE PRN sob/wheexing Amlodipine Besylate (Norvasc Tab*) 10 mg PO QPM SUNDAR Amoxicillin/Clavulanate Potassium (Augmentin Tab*) 875 mg PO BID SUNDAR Aspirin (Aspirin Ec Tab*) 81 mg PO DAILY [facility] Atorvastatin Calcium (Lipitor*) 20 mg PO QPM SUND[place] Docusate Sodium (Colace Cap*) 100 mg PO DAILY [facility] Fluoxetine HCl (Prozac Cap*) 20 mg PO QAM [facility] Heparin Sodium (Porcine) (Heparin Vial(*)) 5,000 units SUBCUT Q8HR [facility] Losartan Potassium (Cozaar Tab*) 100 mg PO DAILY [facility] Methylprednisolone Sodium Succinate (Solu-Medrol 40 Mg) 40 mg IV Q12H [facility] Mirabegron (Myrbetriq (Nf)) 50 mg PO DAILY [facility] Mirtazapine (Remeron Tab*) 15 mg PO BEDTIME SUNDAR Nystatin (Nystatin Top Powder*) 1 applic TOPICAL BID SUNDAR Olodaterol (Striverdi Respimat) 2 puff INH DAILY SUNDAR; Protocol Oseltamivir Phosphate (Tamiflu Cap*) 75 mg PO BID SUNDAR Oxybutynin Chloride (Ditropan Xl Tab*) 10 mg PO DAILY SUNDAR; Protocol Pantoprazole Sodium (Protonix Tab*) 40 mg PO DAILY [facility] Polyethylene Glycol/Electrolytes (Miralax*) 8.5 gm PO DAILY [facility] Primidone (Mysoline 250 Mg Tab (*)) 250 mg PO BID [facility] Vital Signs - 8 hr 12/02/19 12/02/19 12/02/19 02:59 07:54 10:08 Temperature 97.9 F 98.4 F Pulse Rate 83 81 Respiratory 21 22 22 Rate Blood Pressure 139/63 148/67 (mmHg) O2 Sat by Pulse 99 98 Oximetry Oxygen Devices in Use Now: Nasal Cannula - 4L Appearance: Elderly female lying in bed in NAD Ears/Nose/Mouth/Throat: Mucous Membranes Moist Neck: NL Appearance and Movements; NL JVP, Trachea Midline Respiratory: Symmetrical Chest Expansion and Respiratory Effort, - - Rhonchi and exp wheezing throughout Cardiovascular: NL Sounds; No Murmurs; No JVD Extremities: - - Mild nonpitting BLE Neurological: Alert and Oriented x 3 Lines/Tubes/Other Access: Clean, Dry and Intact Peripheral IV Nutrition: Taking PO's Result Diagrams: 12/02/19 05:41 12/02/19 05:34 Assess/Plan/Problems-Billing Assessment: Ms. Augustin is a 74 yo F with PMH of primary lateral sclerosis, chronic pain, COPD on 2L at HS; admitted 10/26/19 - 11/01/19 for pneumonia, now resolved; who presented to the ED with c/o SOB and was found to be flu positive. - Patient Problems (1) Influenza B Code(s): J10.1 - FLU DUE TO OTH IDENT INFLUENZA VIRUS W OTH RESP MANIFEST Comment: - Positive swab on admission - Continue Tamiflu (2) COPD exacerbation Code(s): J44.1 - CHRONIC OBSTRUCTIVE PULMONARY DISEASE W (ACUTE) EXACERBATION Comment: - Secondary to influenza - Previously on prednisone taper prior to admission - Continue Solu-Medrol, nebs (scheduled); start Dulera, Spiriva (3) Acute on chronic respiratory failure with hypoxia Code(s): J96.21 - ACUTE AND CHRONIC RESPIRATORY FAILURE WITH HYPOXIA Comment: - Baseline is 2L at HS - Secondary to influenza and COPD exacerbation - Wean oxygen at tolerated - Continue Solu-Medrol, nebs (4) Sepsis Comment: - Met criteria on admission with leukocytosis, tachycadia, tachypnea - Source is influenza - Plan as above; no need for antibiotics (5) Elevated troponin Code(s): R79.89 - OTHER SPECIFIED ABNORMAL FINDINGS OF BLOOD CHEMISTRY Comment : - Chronically elevated - No EKG changes or CP (6) Primary lateral sclerosis Code(s): G12.23 - PRIMARY LATERAL SCLEROSIS Comment: - With functional quadriplegia - Implanted baclofen pump - Continue primidone (7) Hypertension Code(s): I10 - ESSENTIAL (PRIMARY) HYPERTENSION Comment: - Slightly hypertensive - Continue amlodipine, losartan (8) Hyperlipidemia Code(s): E78.5 - HYPERLIPIDEMIA, UNSPECIFIED Comment: - Continue atorvastatin (9) Depression Code(s): F32.9 - MAJOR DEPRESSIVE DISORDER, SINGLE EPISODE, UNSPECIFIED Comment: - Continue fluoxetine, mirtazapine (10) DVT prophylaxis Code(s): Z29.9 - ENCOUNTER FOR PROPHYLACTIC MEASURES, UNSPECIFIED Comment: - Heparin SQ (11) DNR (do not resuscitate) Comment: Status and Disposition: Observation. Anticipate d/c home when medically stable. Attending: Johann Vincent
[2019-12-02] MEDS: [UNRECOGNIZED DRUG - OTHER] INH SCH (10:54)
[2019-12-02] MEDS: Nystatin TOP POWDER* 15 GM BTL TOPICAL SCH ×2 (10:54→20:43)
[2019-12-02] MEDS: Albuterol/Ipratropium NEB.SOL* Albuterol 2.5 MG/Ipratropium 0.5 MG 3 ML INH SCH ×4 (10:58→23:31)
[2019-12-02] MEDS ORDERED: SPIRIVA Respimat* (tiotropium) 2.5 mcg/inh Inhaler INH SCH (11:00)
[2019-12-02] MEDS: Mometasone/Formoter 200/5 MDI INH SCH ×2 (14:37→19:24)
[2019-12-02] MEDS: Fluticasone NASAL SPRAY 50MCG* 16 gm SPRAY BTL BOTH NARES SCH (15:27)
--- NOTE | 2019-12-02 16:12 | CONSULT ---
Palliative / Hospice Consult Ordering Provider: Anu Joyner - [facility]CP[facility] Referal Reason: Goals of care/docusate & senna/ no MS - Subjective Code Status: DNR Advance Directives Location: In Chart MOLST Part A Completed: Yes - on chart MOLST Part E Completed:: Yes - on chart - History or Present Illness History or Present Illness: 74yo female with primary lateral sclerosis(PLS) and COPD presents to ER with SOB. PMH is significant for PLS since 1999 lost ability to walk 5-6yrs ago, COPD on 2 liters O2 at night, osetoarthritis, chronic muscle spasm, L kidney cancer s/p L nephrectomy, h/o colon cancer s/p bowel resection, radiation for skin cancer and chronic incontinence. PSHx-pt lives alone with 24 hr aide coverage across the [address] from her niece Jenna([phone]) who is her HCP, , passed from esophageal cancer with 2 children son Dale in [place] and daughter Edith in [place], +tob user, no etoh, no drugs, was originally from the area but moved to [place] 20yrs ago and returned when her passed. Studies CXR-elevated R hemidiaphragm, no pneumonia, ekg-sinus tach, CTA-limited no PE, COPD, ekg-nsr, H/H 11.3/34, BUN/Cr 17/.8, egfr 70 , Ca 8.3, troponin .06, alb 3.7 and +influenza B. Pt admitted with influenza, COPD exacerbation and elevated troponin. Pt has been admitted 06/12-06/14 sepsis, 06/30 ER SOB, 08/24-08/29 COPD, 09/20-09/22 COPD and 10/27-10/30 COPD. All history from pt , family and medical records. Lab Values: Abnormal Lab Results 12/01/19 12/02/19 12/02/19 22:51 05:34 05:41 WBC 8.0 RBC 3.83 Hgb 11.3 L Hct 34 L MCV 89 MCH 30 MCHC 33 RDW 17 H Plt Count 419 MPV 6.8 L Neut % (Auto) 80.1 Lymph % (Auto) 13.6 [place] % (Auto) 5.7 Eos % (Auto) 0.1 Baso % (Auto) 0.5 Absolute Neuts (auto) 6.4 Absolute Lymphs (auto) 1.1 Absolute Monos (auto) 0.5 Absolute Eos (auto) 0.0 Absolute Basos (auto) 0.0 Absolute Nucleated RBC 0.0 Nucleated RBC % 0.1 Sodium 136 Potassium 4.7 Chloride 105 Carbon Dioxide 24 Anion Gap 7 BUN 17 Creatinine 0.80 Est GFR ( Amer) 84.8 Est GFR (Non-Af Amer) 70.1 BUN/Creatinine Ratio 21.3 H Glucose 93 Calcium 8.3 L Troponin I 0.04 H* Laboratory Last Values WBC 8.0 10^3/uL (3.5-10.8) 12/02/19 05:41 RBC 3.83 10^6 /uL (3.70-4.87) 12/02/19 05:41 Hgb 11.3 g/dL (12.0-16.0) L 12/02/19 05:41 Hct 34 % (35-47) L 12/02/19 05:41 MCV 89 fL (80-97) 12/02/19 05:41 MCH 30 pg (27-31) 12/02/19 05:41 MCHC 33 g/dL (31-36) 12/02/19 05:41 RDW 17 % (10-15) H 12/02/19 05:41 Plt Count 419 10^3/uL (150-450) 12/02/19 05:41 MPV 6.8 fL (7.4-10.4) L 12/02/19 05:41 Neut % (Auto) 80.1 % 12/02/19 05:41 Lymph % (Auto) 13.6 % 12/02/19 05:41 [place] % (Auto) 5.7 % 12/02/19 05:41 Eos % (Auto) 0.1 % 12/02/19 05:41 Baso % (Auto) 0.5 % 12/02/19 05:41 Absolute Neuts (auto) 6.4 10^3/ul (1.5-7.7) 12/02/19 05:41 Absolute Lymphs (auto) 1.1 10^3/ul (1.0-4.8) 12/02/19 05:41 Absolute Monos (auto) 0.5 10^3/ul (0-0.8) 12/02/19 05:41 Absolute Eos (auto) 0.0 10^3/ul (0-0.6) 12/02/19 05:41 Absolute Basos (auto) 0.0 10^3/ul (0-0.2) 12/02/19 05:41 Absolute Nucleated RBC 0.0 10^3/ul 12/02/19 05:41 Nucleated RBC % 0.1 12/02/19 05:41 VBG pH 7.40 (7.32-7.43) 12/01/19 08:15 VBG pCO2 38 mmHg (41-51) L 12/01/19 08:15 VBG pO2 87.0 mmHg (35-45) H 12/01/19 08:15 VBG HCO3 24.1 mmol/L (24-28) 12/01/19 08:15 VBG O2 Saturation 99.0 % (70-80) H 12/01/19 08:15 VBG Base Excess -1.1 mmol/L (0.0-4.0) L 12/01/19 08:15 Sodium 136 mmol/L (135-145) 12/02/19 05:34 Potassium 4.7 mmol/L (3.5-5.0) 12/02/19 05:34 Chloride 105 mmol/L (101-111) 12/02/19 05:34 Carbon Dioxide 24 mmol/L (22-32) 12/02/19 05:34 Anion Gap 7 mmol/L (2-11) 12/02/19 05:34 BUN 17 mg/dL (6-24) 12/02/19 05:34 Creatinine 0.80 mg/dL (0.51-0.95) 12/02/19 05:34 Est GFR ( Amer) 84.8 (>60) 12/02/19 05:34 Est GFR (Non-Af Amer) 70.1 (>60) 12/02/19 05:34 BUN/Creatinine Ratio 21.3 (8-20) H 12/02/19 05:34 Glucose 93 mg/dL (70-100) 12/02/19 05:34 Lactic Acid 1.8 mmol/L (0.5-2.0) 12/01/19 08:15 Calcium 8.3 mg/dL (8.6-10.3) L 12/02/19 05:34 Total Bilirubin 0.20 mg/dL (0.2-1.0) 12/01/19 08:15 AST 18 U/L (13-39) 12/01/19 08:15 ALT 17 U/L (7-52) 12/01/19 08:15 Alkaline Phosphatase 97 U/L (34-104) 12/01/19 08:15 Troponin I 0.04 ng/mL (<0.03) H* 12/01/19 22:51 B-Natriuretic Peptide 29 pg/mL (<=100) 12/01/19 08:15 Total Protein 7.0 g/dL (6.4-8.9) 12/01/19 08:15 Albumin 3.7 g/dL (3.2-5.2) 12/01/19 08:15 Globulin 3.3 g/dL (2-4) 12/01/19 08:15 Albumin/Globulin Ratio 1.1 (1-3) 12/01/19 08:15 Urine Color Yellow 12/01/19 15:15 Urine Appearance Cloudy 12/01/19 15:15 Urine pH 5.0 (5-9) 12/01/19 15:15 Ur Specific [place] 1.029 (1.010-1.030) 12/01/19 15:15 Urine Protein 1+(30 mg/dl) (Negative) A 12/01/19 15:15 Urine Ketones Negative (Negative) 12/01/19 15:15 Urine Blood 3+ (Negative) A 12/01/19 15:15 Urine Nitrate Negative (Negative) 12/01/19 15:15 Urine Bilirubin Negative (Negative) 12/01/19 15:15 Urine Urobilinogen Negative (Negative) 12/01/19 15:15 Ur Leukocyte Esterase Negative (Negative) 12/01/19 15:15 Urine WBC (Auto) Trace(0-5/hpf) (Absent) 12/01/19 15:15 Urine RBC (Auto) 3+(>10/hpf) (Absent) A 12/01/19 15:15 Ur Squamous Epith Cells Present (Absent) A 12/01/19 15:15 Urine Bacteria 1+ (Absent) A 12/01/19 15:15 Urine Glucose Negative (Negative) 12/01/19 15:15 Influenza A (Rapid) Not Reportable 12/01/19 10:15 Influenza B (Rapid) Positive (Negative) A 12/01/19 10:15 - Objective Active Medications: Acetaminophen (Tylenol Tab*) 650 mg PO Q4H PRN PRN Reason: PAIN - MILD Last Admin: 12/02/19 13:39 Dose: 650 mg Albuterol (Ventolin Hfa Inhaler*) 2 puff INH Q4H PRN PRN Reason: SOB/WHEEZING Albuterol/Ipratropium (Duoneb (Albuterol 2.5 Mg/Ipratropium 0.5 Mg)) 1 neb INH [id number] AWAKE [facility] Last Admin: 12/02/19 14:36 Dose: 1 neb Amlodipine Besylate (Norvasc Tab*) 10 mg PO QPM [facility] Last Admin: 12/01/19 17:13 Dose: 10 mg Amoxicillin/Clavulanate Potassium (Augmentin Tab*) 875 mg PO BID [facility] Last Admin: 12/02/19 09:06 Dose: 875 mg Aspirin (Aspirin Ec Tab*) 81 mg PO DAILY [facility] Last Admin: 12/02/19 09:06 Dose: 81 mg Atorvastatin Calcium (Lipitor*) 20 mg PO QPM [facility] Last Admin: 12/01/19 17:13 Dose: 20 mg Docusate Sodium (Colace Cap*) 100 mg PO DAILY [facility] Last Admin: 12/02/19 09:06 Dose: 100 mg Fluoxetine HCl (Prozac Cap*) 20 mg PO QAM [facility] Last Admin: 12/02/19 09:06 Dose: 20 mg Fluticasone Propionate (Flonase Nasal [place] 50mcg*) 2 spray BOTH NARES DAILY [facility] Last Admin: 12/02/19 15:27 Dose: 2 spray Heparin Sodium (Porcine) (Heparin Vial(*)) 5,000 units SUBCUT Q8HR [facility] Last Admin: 12/02/19 13:40 Dose: 5,000 units Losartan Potassium (Cozaar Tab*) 100 mg PO DAILY [facility] Last Admin: 12/02/19 09:07 Dose: 100 mg Methylprednisolone Sodium Succinate (Solu-Medrol 40 Mg) 40 mg IV Q12H [facility] Last Admin: 12/02/19 09:08 Dose: 40 mg Mirabegron (Myrbetriq (Nf)) 50 mg PO DAILY [facility] Last Admin: 12/02/19 09:08 Dose: Not Given Mirtazapine (Remeron Tab*) 15 mg PO BEDTIME [facility] Last Admin: 12/01/19 21:42 Dose: 15 mg Mometasone Furoate/Formoterol Fumar (Dulera 200/5 Mdi*) 2 puff INH BID [facility] Last Admin: 12/02/19 14:37 Dose: 2 puff Nystatin (Nystatin Top Powder*) 1 applic TOPICAL BID [facility] Last Admin: 12/02/19 10:54 Dose: 1 applic Olodaterol (Striverdi Respimat) 2 puff INH DAILY [facility]; Protocol Last Admin: 12/02/19 10:54 Dose: 2 puff Oseltamivir Phosphate (Tamiflu Cap*) 75 mg PO BID [facility] Stop: 12/05/19 21:01 Last Admin: 12/02/19 09:07 Dose: 75 mg Oxybutynin Chloride (Ditropan Xl Tab*) 10 mg PO DAILY [facility]; Protocol Last Admin: 12/02/19 09:09 Dose: Not Given Pantoprazole Sodium (Protonix Tab*) 40 mg PO DAILY [facility] Last Admin: 12/02/19 09:07 Dose: 40 mg Polyethylene Glycol/Electrolytes (Miralax*) 8.5 gm PO DAILY [facility] Last Admin: 12/02/19 09:10 Dose: 8.5 gm Primidone (Mysoline 250 Mg Tab (*)) 250 mg PO BID [facility] Last Admin: 12/02/19 09:10 Dose: 250 mg Vital Signs: Vital Signs: Temp Pulse Resp BP Pulse Ox 98.6 F 80 20 138/62 99 12/02/19 11:24 12/02/19 14:39 12/02/19 14:39 12/02/19 11:24 12/02/19 14:39 Patient Weight: Weight 79.515 kg Intake and Output: Intake & Output 11/30/19 12/01/19 12/02/19 12/03/19 06:59 06:59 06:59 06:59 Intake Total 350 600 Output Total 300 Balance 50 600 Weight 79.515 kg Intake: Oral 350 600 Output: Urine 300 Other: Estimated Void Medium Large Estimated Stool Amount Small Large # Voids 1 ADLs: Meal Record Start: 12/01/19 12: 34 Freq: DAILY@0900,1400,1800 Status: Active Protocol: Created 12/01/19 12:34 System (Rec: 12/01/19 12:34 System [email or web address]) Document 12/01/19 18:00 [id number] (Rec: 12/01/19 18:03 [id number]) Document 12/02/19 08:55 [id number] (Rec: 12/02/19 08:56 [id number]) Document 12/02/19 13:01 [id number] (Rec: 12/02/19 13:01 [id number]) Intake and Output Start: 12/01/19 08: 07 Freq: Status: Active Protocol: Created 12/01/19 08:07 System (Rec: 12/01/19 08:07 System [id number]) Intake and Output Start: 12/01/19 12: 34 Freq: DAILY@0600,1400,2200 Status: Active Protocol: Created 12/01/19 12:34 System (Rec: 12/01/19 12:34 System [email or web address]) Document 12/01/19 21:35 [id number] (Rec: 12/01/19 21:37 [id number] TELE-C10) Document 12/02/19 05:40 [id number] (Rec: 12/02/19 05:41 [id number] TELE-C10) Document 12/02/19 14:00 [id number] (Rec: 12/02/19 14:03 [id number] [id number]) Head: Normal Eyes: No Scleral Icterus Ears/Nose/Mouth/Throat: NL Teeth, Lips, Gums, Mucous Membranes Moist Neck: NL Appearance and Movements; NL JVP, Trachea Midline Cardiovascular: NL Sounds; No Murmurs; No JVD Respiratory: Symmetrical Chest Expansion and Respiratory Effort Abdominal: NL Sounds; No Tenderness; No Distention Extremities: - - Mild nonpitting BLE Neurological: Alert and Oriented x 3 - Assessment Assessment: 74yo with primary lateral sclerosis and COPD presents to ER with SOB - Plan Consult Plan (MU): Palliative Plan: Spoke with pt and her aide about goals of care. Pt has been to the hospital 4x this past year. Pt doesn't like to come to the hospital wants to stay at home. Spoke with pt's HCP Jenna her niece who explained pt is getting worse and refuses to stop smoking. Jenna is actually interested in hospice for her aunt but pt is resistant. I gave pt information about out patient palliative care program [facility]. We can refer pt to hospice but I'm not sure she is eligible. Pt has primary lateral sclerosis which causes her to not walk and feed herself and she has COPD on O2 liters at night. Her COPD exacerbations are causing frequent admissions. I recommended we start with [facility] and then transition her to hospice when pt is ready. KPS 40%, PPS 40%. - Time On Unit Date of Evaluation: 12/02/19 Hospice Consult Time in: 15:30 Hospice Consult Time Out: 16:30 Hospice Consult Time Total: 60 > 50% of Time Spend In Counseling or Coordinating Care: Yes
[2019-12-02] MEDS: Atorvastatin* 20 MG TAB PO SCH (17:32)
[2019-12-02] MEDS: amLODIPine TAB* 5 MG PO SCH (17:32)
[2019-12-02] MEDS: Mirtazapine TAB* 15 MG PO SCH (20:44)
[2019-12-03] MEDS: Albuterol/Ipratropium NEB.SOL* Albuterol 2.5 MG/Ipratropium 0.5 MG 3 ML INH SCH ×3 (03:28→11:35)
[2019-12-03] MEDS: Heparin VIAL(*) 5000 UNITS/ML VIAL (FIVE THOUSAND) SUBCUT SCH (05:38)
[2019-12-03] MEDS: Mometasone/Formoter 200/5 MDI INH SCH (07:37)
[2019-12-03 08:23] VITALS: BP 150/69
[2019-12-03] MEDS: Fluticasone NASAL SPRAY 50MCG* 16 gm SPRAY BTL BOTH NARES SCH (09:42)
[2019-12-03] MEDS: Docusate CAP* 100 MG PO SCH (09:43)
[2019-12-03] MEDS: PRIMIDONE 250 MG PO SCH (09:43)
[2019-12-03] MEDS: Oxybutynin XL TAB* 5 MG PO SCH (09:43)
[2019-12-03] MEDS: Amoxicillin/Clavulanate TAB* 875 MG PO SCH (09:44)
[2019-12-03] MEDS: Oseltamivir CAP* 75 MG CAP PO SCH (09:44)
[2019-12-03] MEDS: Aspirin EC TAB* 81 MG TAB.EC PO SCH (09:44)
[2019-12-03] MEDS: Pantoprazole TAB * 40 MG TAB PO SCH (09:44)
[2019-12-03] MEDS: FLUoxetine CAP* 20 MG PO SCH (09:44)
[2019-12-03] MEDS: MIRABEGRON 50 MG PO SCH (09:45)
[2019-12-03] MEDS: Nystatin TOP POWDER* 15 GM BTL TOPICAL SCH (09:45)
[2019-12-03] MEDS: Losartan TAB* 25 MG PO SCH (09:45)
[2019-12-03] MEDS: Polyethylene Glycol 3350* 17 GM PACKET PO SCH (09:46)
[2019-12-03] MEDS: methylPREDNISolone SOD 40 MG* 1 ML VIAL IV SCH (10:56)
--- NOTE | 2019-12-03 22:45 | DS ---
CC: Dr. Cinthia Winston * DISCHARGE SUMMARY: DATE OF ADMISSION: 12/01/19 DATE OF DISCHARGE: 12/03/19 PRIMARY CARE PROVIDER: Dr. Cinthia Winston. ATTENDING PHYSICIAN: Dr. Halima Cruz.* (DICTATED BY EVONNE MENDOZA NP) PRIMARY DIAGNOSES: 1. Influenza. 2. Chronic obstructive pulmonary disease exacerbation. 3. Mjley-it-oadyzhv hypoxic respiratory failure. SECONDARY DIAGNOSES: 1. Primary lateral cirrhosis. 2. Hypertension. 3. Hyperlipidemia. 4. Depression. STUDIES WHILE IN THE HOSPITAL: 1. Chest x-ray on 12/01/19 reads as elevated right hemidiaphragm with no definite pneumonia. 2. EKG on 12/01/19 shows sinus tachycardia with a rate of 103, QTc 402. 2. Chest thorax CTA on 12/01/19 reads as limited DVT. Pulmonary angiogram is noted without compelling evidence for pulmonary embolism. Stigmata of COPD, mild bibasilar atelectasis. 3. EKG on 12/02/19 shows normal sinus rhythm with a rate of 88, QTc 429. HISTORY OF PRESENT ILLNESS AND HOSPITAL COURSE: Ms. Augustin is a 74-year-old female with past medical history of primary lateral sclerosis; COPD, on 2 L at night; and hypertension, who presented to the emergency room on 12/01/19 with complaints of shortness of breath. Please see the history and physical by Yvonne Vasquez NP, for complete summary of the events leading up to this hospitalization. In short, the patient was hospitalized at this facility from 10/27/19 to 10/30/19 for pneumonia. She was discharged home and had been doing well, though was noted to have a sick contact with positive exposure to the flu and subsequently developed shortness of breath and cough for 1 week prior to presentation. In the emergency room, she was noted to be meeting sepsis criteria with leukocytosis, tachycardia, and tachypnea, source was determined to be influenza based on positive nasal swab. She was requiring oxygen to maintain saturations in the 90s and so for that reason she was admitted by the hospitalist service. The patient was placed on Tamiflu. She initially required 4 L of oxygen to maintain saturations. She was noted to have some wheezing and productive cough , and so was started on Solu-Medrol for COPD exacerbation as well. The COPD exacerbation was secondary to influenza and there was no evidence of pneumonia. She had previously been started on Augmentin by her primary care provider 3 days prior to admission and that was continued. Troponin was noted to be elevated though this was consistent with her baseline and there was no evidence of any acute cardiac concerns. The patient has responded well to steroids, the nebulizers, and today is feeling significantly improved. Shortness of breath has essentially resolved and cough has significantly improved as well. Her nursing home social worker at the bedside reports that she looks much better than she did on admission. The patient was successfully weaned to room air today and while I was in the room, the patient was saturating 94% on room air. Her only complaint at this point is decreased hearing acuity. I did examine her ears with an otoscope and she is noted to have erythema to bilateral tympanic membranes, which I think very likely represents viral otitis media secondary to influenza. The bacterial otitis media cannot be ruled out; however, she is already on Augmentin. The patient was seen by Palliative Care while here in the hospital and is not hospice eligible at this point, though is agreeable to potentially pursuing palliative care. So, we will refer her to the [facility] program. PHYSICAL EXAMINATION: On exam, she is alert and oriented x4. She is generally weak, though this is consistent with her baseline. Heart has a regular rate and rhythm without murmurs, rubs, or gallops. Lungs are diminished with faint expiratory wheezing. No rhonchi or rubs. There is no edema. Physical exam is otherwise benign. Ms. Augustin is stable for discharge. Most recent vitals are as follows: Temp 98.5 , heart rate 79, respiratory rate 22, oxygen saturation 94% on room air, blood pressure 150/69. DISCHARGE MEDICATIONS: New: 1. Tessalon 100 mg p.o. t.i.d. 2. Fluticasone 2 sprays both nares daily. 3. Tamiflu 75 mg p.o. b.i.d. x5 doses. 4. Prednisone taper (40 mg for 2 days, 30 mg for 2 days, and 20 mg for 2 days, then resume 10 mg daily). Continued: 1. Albuterol MDI 1 to 2 puffs q.4 hours p.r.n. shortness of breath, wheezing. 2. Amlodipine 10 mg p.o. at bedtime. 3. Augmentin 875 mg p.o. b.i.d. 4. Aspirin 81 mg p.o. daily. 5. Atorvastatin 20 mg p.o. at bedtime. 6. Docusate 100 mg p.o. daily. 7. Fluoxetine 20 mg p.o. daily. 8. Losartan 100 mg p.o. daily. 9. Myrbetriq 50 mg p.o. daily. 10. Mirtazapine 15 mg p.o. at bedtime. 11. Omeprazole 20 mg p.o. daily. 12. MiraLAX 17 g p.o. daily. 13. Primidone 250 mg p.o. b.i.d. 14. Salmeterol 1 puff b.i.d. 15. Detrol LA 4 mg p.o. daily. 16. DuoNeb 1 neb q.4 hours p.r.n. shortness of breath and wheezing. 17. Vitamin B12 2500 mcg p.o. daily. 18. Ibuprofen 400 mg p.o. q.8 hours p.r.n. pain. 19. Prednisone 10 mg p.o. daily (after taper is complete). 20. Incruse Ellipta 1 inhalation daily. Discontinued medications: 1. Guaifenesin. 2. Tussin Cough. DISCHARGE PLAN: Ms. Augustin will be discharged home. Activity will be as tolerated. The patient is a [place] lift at baseline. Diet will be regular as tolerated. Medications are noted above. The patient will need an additional 5 days of Tamiflu to complete a complete course of 5 days. I have prescribed a short prednisone taper and then she can resume her usual daily prednisone dosing. I have additionally prescribed fluticasone and Tessalon for management of symptoms, though I did not anticipate her needing to use these for any significant period of time. Again, she was placed on Augmentin prior to admission and I have advised her that she should complete her course of Augmentin once returning home. She can resume her other usual medications as noted above. She should follow up with her primary care provider in the next 4 to 7 days. She should return to the emergency room or nearest hospital for any worsening of symptoms, shortness of breath, lightheadedness, dizziness, chest discomfort, hay fevers, chills, night sweats, loss of consciousness, or any other worrisome signs or symptoms. DISCHARGE CONDITION: Stable. DISCHARGE DISPOSITION: Home. This is a summarized report of a complex medical history and hospital stay. For further details, please see the entire medical record. EVONNE MENDOZA, ADITI [id number]/[facility] #: [id number] [place]
== END 2019-12-03 13:30 | disposition home or self-care (01) ==
LOC: ED 08:02 → MEDTELE 11:13
PROVIDERS: ADMIT Internal Medicine; ATTEND Hospitalist
DX: J11.1 Influenza due to unidentified influenza virus with other respiratory manifestations (principal); J44.1 Chronic obstructive pulmonary disease with (acute) exacerbation; J96.21 Acute and chronic respiratory failure with hypoxia; K74.69 Other cirrhosis of liver; I10 Essential (primary) hypertension; E78.5 Hyperlipidemia, unspecified; I25.10 Atherosclerotic heart disease of native coronary artery without angina pectoris; E78.00 Pure hypercholesterolemia, unspecified; R06.02 Shortness of breath; F32.9 Major depressive disorder, single episode, unspecified; F17.210 Nicotine dependence, cigarettes, uncomplicated; Z79.82 Long term (current) use of aspirin; Z79.899 Other long term (current) drug therapy; Z85.038 Personal history of other malignant neoplasm of large intestine; Z85.520 Personal history of malignant carcinoid tumor of kidney
CPT/HCPCS: 36415; 71045; 71275; 80048; 80053; 81003; 81015; 82803; 83605; 83880; 84484; 85025; 87040; 87070; 87086; 87205; 87899; 93005; 94640; 99284; A9270-GY; G0378; J0692; J1644; J2920; J2930; J3535; J7512; Q9967

== ENCOUNTER 2019-12-30 08:57 | Emergency (ER) | payer MEDICARE, OTHER ==
--- OUTSIDE RECORDS SUMMARY | 2019-12-30 09:05 | XMS REPORT ---
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 Radha (current) (current) [place] use of use of RN non-steroid non-steroid al al anti-inflam anti-inflam matories matories (NSAID) (NSAID) Dependence Dependence Diagnosis Active Radha on on [place] wheelchair wheelchair RN Personal Personal Diagnosis Active Radha history of history of [place] irradiation irradiation RN Pain frequent Pain Mgmt Resolve 2018-112019-10-13 Freida pain d 12-02 10:23:00 [place] 10:30: [id number] 00 Respiratory dyspnea Respirator Active 2018-11 Freida present 12-02 [place] 10:30: [id number] 00 Respiratory oxygen Respirator Active 2018-11 Freida treatments 12-02 [place] in home 10:30: [id number] 00 Respiratory knowledge/s Respirator Resolve 2018-112019-12-10 Freida kill y d 12-02 08:30:00 [place] deficit: pt 10:30: [id number] 00 Respiratory knowledge/s Respirator Resolve 2018-112019-12-10 Freida kill y d 12-02 08:30:00 [place] deficit: cg 10:30: [id number] 00 Respiratory lung sounds Respirator Resolve 2018-112019-12-10 Freida deficit y d 12-02 08:30:00 [place] 10:30: [id number] 00 Respiratory smoker Respirator Resolve 2018-112019-11-21 Freida y d 12-02 10:30:00 [place] 10:30: [id number] 00 Respiratory nebulizer Respirator Active 2018-11 Freida treatment y 12-02 [place] in home 10:30: [id number] 00 Endo/Benjamin anti-coagul Endo/Benjamin Resolve 2018-112019-10-06 Freida ation d 12-02 13:19:00 [place] therapy 10:30: [id number] 00 Sensory impaired Sensory Active 2018-11 Freida hearing 12-02 [place] 10:30: [id number] 00 Integument skin Integument Resolve 2018-112019-10-08 Freida integrity d 12-02 14:40:00 [place] risk 10:30: [id number] 00 Nutrition nutritional Nutrition Resolve 2018-112019-10-13 Freida restriction d 12-02 10:23:00 [place] s 10:30: [id number] 00 Elimination urinary Eliminatio Resolve 2018-112019-10-06 Freida incontinenc n d 12-02 13:19:00 [place] e 10:30: [id number] 00 Neuro confusion Neuro/Emot Active 2018-11 Freida present ion 12-02 [place] 10:30: [id number] 00 Neuro anxiety Neuro/Emot Active 2018-11 Freida present ion 12-02 [place] 10:30: [id number] 00 Neuro depressive Neuro/Emot Active 2018-11 Freida feelings ion 12-02 [place] present 10:30: [id number] 00 Neuro impaired Neuro/Emot Active 2018-11 Freida decision-ma ion 12-02 [place] claritza 10:30: [id number] 00 Activity ADL Activity Active 2018-11 Freida assistance 12-02 [place] required 10:30: [id number] 00 Activity self-care Activity Resolve 2018-112019-10-06 Freida deficit d 12-02 13:19:00 [place] 10:30: [id number] 00 Safety cannot be Safety Active 2018-11 Freida left alone 12-02 [place] 10:30: [id number] 00 Safety knowledge/s Safety Resolve 2018-112019-10-16 Freida kill d 12-02 14:28:00 [place] deficit: pt 10:30: [id number] 00 Safety fall risk Safety Resolve 2018-112019-10-10 Freida factor d 12-02 14:55:00 [place] present 10:30: [id number] 00 Safety risk for Safety Resolve 2018-112019-10-10 Freida hospitaliza d 12-02 14:55:00 Serena tion 10:30: [id number] 00 Medication oral med Meds Resolve 2018-112019-10-13 Freida assistance d 12-02 10:23:00 [place] required 10:30: [id number] 00 Musculoskel transfer Musculoske Resolve 2018-112019-10-13 Freida etal assistance letal d 12-02 10:23:00 Serena required 10:30: [id number] 00 Musculoskel requires Musculoske Resolve 2018-112019-10-13 Freida etal human letal d 12-02 10:23:00 Serena assist to 10:30: [id number] leave home 00 Cardio edema Cardiovasc Resolve 2018-112019-11-11 Radha ular d 12-10 12:38:00 [place] 14:55: RN 00 Safety risk for Safety Resolve 2018-112019-10-16 Radha hospitaliza d 12-13 14:28:00 [place] tion 10:23: RN 00 Medication oral med Meds Resolve 2018-112019-11-17 Radha assistance d 12-16 08:35:00 [place] required 14:28: RN 00 Safety knowledge/s Safety Resolve 2018-112019-11-14 Evelyn kill d 12-17 08:30:00 [place] deficit: pt 10:00: [id number] 00 Safety risk for Safety Resolve 2018-112019-10-31 Evelyn hospitaliza d 12-17 14:05:00 [place] tion 10:00: [id number] 00 Social knowledge/s RSULAN: Active 2018-11 Evelyn Services kill Social 12-17 [place] deficit - Services 10:00: [id number] pt 00 Safety can be left Safety Active 2018-11 Shanelle pool for 12-22 Ernestina only short 12:04: [id number] periods 00 Safety fire risk Safety Resolve 2018-112019-10-31 Yesy present d 12-27 14:05:00 Carrier RN 11:50: 00 Safety fire risk: Safety Resolve 2018-112019-10-31 Yesy smoking/O2 d 12-27 14:05:00 Carrier RN in use 11:50: 00 Medication potential Meds Resolve 2018-112019-11-27 Yesy clinically d 12-27 08:35:00 Carrier RN significant 11:50: medication 00 issue Elimination urinary Eliminatio Resolve 2018-112019-10-31 Radha incontinenc n d 2- 14:05:00 [place] e 14:05: RN 00 Activity self-care Activity Resolve 2018-112019-10-31 Radha deficit d 2- 14:05:00 [place] 14:05: RN 00 Safety fall risk Safety Resolve 2018-112019-10-31 Radha factor d 01-01 14:05:00 [place] present 14:05: RN 00 Balance/End 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/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 PT/OT: Active 2018-11 Georges urance rdination Balance/En 01-01 Cory, deficit durance 15:00: PT 00 [id number] Gait/Locomo gait PT/OT: Active 2018-11 Georges tion deficit Gait/Locom 01-01 Cory, problems otion 15:00: PT 00 [id number] Elimination urinary Eliminatio Resolve 2018-112019-11-03 Radha incontinenc n d - 13:20:00 [place] e 13:20: RN 00 Safety fall risk Safety Resolve 2018-112019-11-06 Gisele White factor d 2-10 13:30:00 present 13:43: 55 Safety risk for Safety Resolve 2018-112019-11-06 Gisele Snyder hospitaliza d 2-10 13:30:00 tion 13:43: 55 Elimination urinary Eliminatio Resolve 2018-112019-11-06 Radha incontinenc n d 2-12 13:30:00 [place] e 13:30: RN 00 Safety risk for Safety Resolve 2018-112019-11-14 Evelyn hospitaliza d 2- 08:30:00 [place] tion 08:30: [id number] 00 Elimination urinary Eliminatio Resolve 2018-112019-11-21 Radha incontinenc n d 01-18 10:30:00 [place] e 08:35: RN 00 Safety risk for Safety Resolve 2018-112019-11-17 Radah hospitaliza d 01-18 08:35:00 [place] tion 08:35: RN 00 Safety risk for Safety Resolve 2018-112019-11-24 Georges hospitaliza d 01-21 08:45:00 flor Ray 09:15: PT 00 [id number] Medication oral med Meds Resolve 2018-112019-11-27 Martha assistance d 01-22 08:35:00 [place] required 10:30: 00 Medication inhalant Meds Resolve 2018-112019-11-27 Martha med d 01-22 08:35:00 [place] assistance 10:30: required 00 Elimination urinary Eliminatio Resolve 2018-112019-11-24 Radha incontinenc n d 08:45:00 [place] e 08:45: RN 00 Nutrition nutritional Nutrition Active 2018-11 Georges restriction guille Ray 13:15: PT 00 [id number] Safety risk for Safety Unknown 2018-11 Georges [facility] flor Ray 13:15: PT 00 [id number] Pain frequent Pain Mgmt Active Radha pain 11-27 [place] 08:35: RN 00 Respiratory smoker Respirator Resolve 2019-12-10 Radha y d 11-27 08:30:00 [place] 08:35: RN 00 Endo/Benjamin anti-coagul Endo/Benjamin Active Radha ation 11-27 [place] therapy 08:35: RN 00 Integument skin Integument Active Radha integrity 11-27 [place] risk 08:35: RN 00 Elimination urinary Eliminatio Resolve 2019-11-27 Radha incontinenc n d 11-27 08:35:00 [place] e 08:35: RN 00 Activity self-care Activity Resolve 2019-11-27 Radha deficit d 11-27 08:35:00 [place] 08:35: RN 00 Safety fall risk Safety Resolve 2019-12-04 Radha factor d 11-27 08:45:00 [place] present 08:35: RN 00 Safety risk for Safety Resolve 2019-12-04 Radha hospitaliza d 11-27 08:45:00 [place] tion 08:35: RN 00 Elimination urinary Eliminatio Resolve 2019-12-04 Radha incontinenc n d 12-04 08:45:00 [place] e 08:45: RN 00 Cardio edema Cardiovasc Resolve 2019-12-10 Radha ular d 12-10 08:30:00 [place] 08:30: RN 00 Elimination urinary Eliminatio Resolve 2019-12-16 Radha incontinenc n d 12-10 09:00:00 [place] e 08:30: RN 00 Safety risk for Safety Resolve 2019-12-10 Radha hospitaliza d 12-10 08:30:00 [place] tion 08:30: RN 00 Respiratory lung sounds Respirator Active Radha deficit y 12-16 [place] 09:00: RN 00 Respiratory smoker Respirator Active Radha y 12-16 [place] 09:00: RN 00 Respiratory knowledge/s Respirator Active Radha kill y 12-16 [place] deficit: pt 09:00: RN 00 Safety risk for Safety Resolve 2019-12-16 Radha hospitaliza d 12-16 09:00:00 [place] tion 09:00: RN 00 Allergies, Adverse Reactions, Alerts Allergy Allergy Type Status Severity Reaction(s) Onset Inactive Treating Comments Name Date Date Clinician codeine Base Active Unknown Reaction 2019-03 May Ingredient 08 Quan Medications Ordered Filled Start Stop Current Ordering Indication Dosage Frequency Signature Comments Components Medication Medication Date Date Medication? Clinician (SIG) Name Name FLUoxetine FLUoxetine 2018-11 Yes Jander Unknown Unknown 20 mg 20 mg - Cinthia ELLISON capsule capsule atorvastati atorvastati 2018-11 [...] Yes Jander Unknown Unknown Ellipta Ellipta -07 Cinthia ELLISON 62.5 62.5 mcg/actuati mcg/actuati on [...] Jander Unknown Unknown 250 mg 250 mg 12-02- ,Cinthia tablet tablet Aspirin Low Aspirin Low [...] mg 01-01 MD,Cinthia tablet tablet ibuprofen ibuprofen 2018-11- Yes Jander Unknown Unknown 400 mg 400 [...] mg 01-05 MD,Cinthia tablet tablet predniSONE predniSONE 2018-11- Yes Jander Unknown Unknown 10 mg 10 mg 01-15 MD,Cinthia tablet tablet Tylenol Tylenol 2018-11 Yes Jander Unknown Unknown Extra Extra 01-22 MD,Cinthia Strength Strength 500 mg 500 mg tablet tablet predniSONE predniSONE 2019- Yes Jander Unknown Unknown 10 mg 10 mg 12-04 MD,Cinthia tablet tablet benzonatate benzonatate Yes Jander Unknown Unknown 100 mg 100 mg 12-04 MD,Cinthia capsule capsule Tamiflu 75 Tamiflu 75 2020- Yes Jander Unknown Unknown mg capsule mg capsule 12-04 Cinthia ELLISON oxygen oxygen 2019-0 Yes Jander Unknown Unknown 12-04 ,Cinthia morphine morphine 2019- Yes Jander Unknown Unknown concentrate concentrate 12-10 MD,Cinthia 100 mg/5 mL 100 mg/5 mL (20 mg/mL) (20 mg/mL) oral oral solution solution predniSONE predniSONE 2019- Yes Jander Unknown Unknown 10 mg 10 mg 16 MD,Cinthia tablet tablet primidone primidone 2019- Yes Hiral Unknown Unknown 250 mg 250 mg 12-10 MD,Joe tablet tablet ibuprofen ibuprofen 2019- Yes Jander Unknown Unknown 200 mg 200 mg 12-16 MD,Cinthia tablet tablet Vital Signs Vital Name Observation Time Observation Value Comments SYSTOLIC mm[Hg] 2019-12-16 18:09:59 120 mm[Hg] mm[Hg] Method: Sit DIASTOLIC mm[Hg] 2019-12-16 18:09:59 60 mm[Hg] mm[Hg] Method: Sit PULSE 2019-12-16 18:09:59 81 /min /min RESP RATE 2019-12-16 18:09:59 20 /min /min TEMP 2019-12-16 18:09:59 97.2 [degF] Procedures This patient has no known procedures. Results This patient has no known results.
--- OUTSIDE RECORDS SUMMARY | 2019-12-30 09:05 | XMS REPORT ---
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 Radha (current) (current) [place] use of use of RN non-steroid non-steroid al al anti-inflam anti-inflam matories matories (NSAID) (NSAID) Dependence Dependence Diagnosis Active Radha on on [place] wheelchair wheelchair RN Personal Personal Diagnosis Active Radha history of history of [place] irradiation irradiation RN Pain frequent Pain Mgmt Resolve 2018-112019-10-13 Freida pain d 12-02 10:23:00 [place] 10:30: [id number] 00 Respiratory dyspnea Respirator Active 2018-11 Freida present 12-02 G[place] 10:30: [id number] 00 Respiratory oxygen Respirator Active 2018-11 Freida treatments 12-02 Gordo in home 10:30: [id number] 00 Respiratory knowledge/s Respirator Resolve 2018-112019-12-10 Freida kill y d 12-02 08:30:00 Gordo deficit: pt 10:30: [id number] 00 Respiratory knowledge/s Respirator Resolve 2018-112019-12-10 Freida kill y d 12-02 08:30:00 Gordo deficit: cg 10:30: [id number] 00 Respiratory lung sounds Respirator Resolve 2018-112019-12-10 Freida deficit y d 12-02 08:30:00 [place] 10:30: [id number] 00 Respiratory smoker Respirator Resolve 2018-112019-11-21 Freida y d 12-02 10:30:00 [place] 10:30: [id number] 00 Respiratory nebulizer Respirator Active 2018-11 Freida treatment y 12-02 Gordo in home 10:30: [id number] 00 Endo/Benjamin anti-coagul Endo/Benjamin Resolve 2018-112019-10-06 Freida ation d 12-02 13:19:00 Gordo therapy 10:30: [id number] 00 Sensory impaired Sensory Active 2018-11 Freida hearing 12-02 Gordo 10:30: [id number] 00 Integument skin Integument Resolve 2018-112019-10-08 Freida integrity d 12-02 14:40:00 Gordo risk 10:30: [id number] 00 Nutrition nutritional Nutrition Resolve 2018-112019-10-13 Freida restriction d 12-02 10:23:00 Gordo s 10:30: [id number] 00 Elimination urinary Eliminatio Resolve 2018-112019-10-06 Freida incontinenc n d 12-02 13:19:00 Gordo e 10:30: [id number] 00 Neuro confusion Neuro/Emot Active 2018-11 Freida present ion 12-02 Gordo 10:30: [id number] 00 Neuro anxiety Neuro/Emot Active 2018-11 Freida present ion 12-02 Gordo 10:30: [id number] 00 Neuro depressive Neuro/Emot Active 2018-11 Freida feelings ion 12-02 Gordo present 10:30: [id number] 00 Neuro impaired Neuro/Emot Active 2018-11 Freida decision-ma ion 12-02 Gordo claritza 10:30: [id number] 00 Activity ADL Activity Active 2018-11 Freida assistance 12-02 Gordo required 10:30: [id number] 00 Activity self-care Activity Resolve 2018-112019-10-06 Freida deficit d 12-02 13:19:00 Gordo 10:30: [id number] 00 Safety cannot be Safety Active 2018-11 Freida left alone 12-02 Gordo 10:30: [id number] 00 Safety knowledge/s Safety Resolve 2018-112019-10-16 Freida kill d 12-02 14:28:00 Gordo deficit: pt 10:30: [id number] 00 Safety fall risk Safety Resolve 2018-112019-10-10 Freida factor d 12-02 14:55:00 Gordo present 10:30: [id number] 00 Safety risk for Safety Resolve 2018-112019-10-10 Freida hospitaliza d 12-02 14:55:00 Serena tion 10:30: [id number] 00 Medication oral med Meds Resolve 2018-112019-10-13 Freida assistance d 12-02 10:23:00 Gordo required 10:30: [id number] 00 Musculoskel transfer Musculoske Resolve 2018-112019-10-13 Freida etal assistance letal d 12-02 10:23:00 Serena required 10:30: [id number] 00 Musculoskel requires Musculoske Resolve 2018-112019-10-13 Freida etal human letal d 12-02 10:23:00 Serena assist to 10:30: [id number] leave home 00 Cardio edema Cardiovasc Resolve 2018-112019-11-11 Radha ular d 12-10 12:38:00 [place] 14:55: RN 00 Safety risk for Safety Resolve 2018-112019-10-16 Radha hospitaliza d 12-13 14:28:00 [place] tion 10:23: RN 00 Medication oral med Meds Resolve 2018-112019-11-17 Radha assistance d 12-16 08:35:00 [place] required 14:28: RN 00 Safety knowledge/s Safety Resolve 2018-112019-11-14 Evelyn kill d 12-17 08:30:00 [place] deficit: pt 10:00: [id number] 00 Safety risk for Safety Resolve 2018-112019-10-31 Evelyn hospitaliza d 12-17 14:05:00 [place] tion 10:00: [id number] 00 Social knowledge/s RUSLAN: Active 2018-11 Evelyn Services kill Social 12-17 [place] deficit - Services 10:00: [id number] pt 00 Safety can be left Safety Active 2018-11 Shanelle pool for 12-22 Ernestina only short 12:04: [id number] periods 00 Safety fire risk Safety Resolve [...] 14:05:00 [place] present 14:05: RN 00 Balance/End balance/cooker meal PT/OT: Active 2018-11 Georges urance rdination Balance/En 01-01 Ocry, deficit durance 15:00: PT 00 [id number] Gait/Locomo gait PT/OT: Active 2018-11 Georges tion deficit Gait/Locom 01-01 Cory, problems otion 15:00: PT 00 [id number] Elimination urinary Eliminatio Resolve 2018-112019-11-03 Radha incontinenc [...] hospitaliza d 2- 08:30:00 [place] tion 08:30: [id number] 00 Elimination urinary Eliminatio Resolve 2018-112019-11-21 Radha incontinenc n d 01-18 10:30:00 [place] e 08:35: RN 00 Safety risk for Safety Resolve 2018-112019-11-17 Radha hospitaliza d 01-18 08:35:00 [place] tion 08:35: RN 00 Safety risk for Safety Resolve 2018-112019-11-24 Georges hospitaliza d 01-21 08:45:00 flor Ray 09:15: PT 00 [id number] Medication oral med Meds Resolve 2018-112019-11-27 Martha assistance d 01-22 08:35:00 [place]le[place] required 10:30: 00 Medication inhalant Meds Resolve 2018-112019-11-27 Martha med d 01-22 08:35:00 [place] assistance 10:30: required 00 Elimination urinary Eliminatio Resolve 2018-112019-11-24 Radha incontinenc n d 08:45:00 [place] e 08:45: RN 00 Nutrition nutritional Nutrition Active 2018-11 Georges restriction guille Ray 13:15: PT 00 [id number] Safety risk for Safety Unknown 2018-11 Georges [facility] flor Ray 13:15: PT 00 [id number] Pain frequent Pain Mgmt Active Radha pain [...] [place] 08:30: RN 00 Elimination urinary Eliminatio Active Rahda incontinenc n 12-10 [place] e 08:30: RN 00 Safety risk for Safety Resolve 2019-12-10 Radha hospitaliza d 12-10 08:30:00 [place] tion 08:30: RN 00 Allergies, Adverse Reactions, Alerts Allergy Allergy Type Status Severity Reaction(s) Onset Inactive Treating Comments Name Date Date Clinician codeine Base Active Unknown Reaction 2019-03 Margie Ingredient Quan Medications Ordered Filled Start Stop [...] Yes Jander Unknown Unknown Ellipta Ellipta 12-02 MDCinthia 62.5 62.5 mcg/actuati mcg/actuati on powder on powder for for inhalation inhalation Detrol LA 4 Detrol LA 4 2018-11 Yes Jander Unknown Unknown mg mg 12-02 MD,Cinthia capsule,ext capsule,ext ended ended release release Myrbetriq Myrbetriq 2018-11 Yes Jander Unknown Unknown 50 mg 50 mg 12-02 MD,Cinthia tablet,exte tablet,exte nded nded release release primidone primidone 2018-11- Jander Unknown Unknown 250 mg 250 mg [...] MD,Cinthia capsule capsule Tamiflu 75 Tamiflu 75 2019- Yes Jander Unknown Unknown mg capsule mg capsule 12-04 ,Cinthia oxygen oxygen 2019- Yes Jander Unknown Unknown 12-04 MD,Cinthia morphine morphine Yes Jander Unknown Unknown concentrate concentrate 12-10 MD,Cinthia 100 mg/5 mL 100 mg/5 mL (20 mg/mL) (20 mg/mL) oral oral solution solution predniSONE predniSONE Yes Jander Unknown Unknown 10 mg 10 mg 12-11 MD,Cinthia tablet tablet primidone primidone Yes Hiral Unknown Unknown 250 mg 250 mg 12-10 MD,Joe tablet tablet Vital Signs Vital Name Observation Time Observation Value Comments RESP RATE 2019-12-10 18:09:53 20 /min /min Procedures This patient has no known procedures. Results This patient has no known results.
--- OUTSIDE RECORDS SUMMARY | 2019-12-30 09:05 | XMS REPORT ---
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) (current) [place] use of use of RN non-steroid non-steroid al al anti-inflam anti-inflam matories matories (NSAID) (NSAID) Dependence Dependence Diagnosis Active Radha on on [place] wheelchair wheelchair RN Personal Personal Diagnosis Active Radha history of history of [place] irradiation irradiation RN Pain frequent Pain Mgmt Resolve 2018-112019-10-13 Freida pain d 12-02 10:23:00 [place] 10:30: [id number] 00 Respiratory dyspnea Respirator Active 2018-11 Freida present 12-02 [place] 10:30: [id number] 00 Respiratory oxygen Respirator Active 2018-11 Freida treatments 12-02 [place] in home 10:30: [id number] 00 Respiratory knowledge/s Respirator Resolve 2018-112019-12-10 Freida kill y d 12-02 08:30:00 [place] deficit: pt 10:30: [id number] 00 Respiratory knowledge/s Respirator Resolve 2018-112019-12-10 Freida kill y d 12-02 08:30:00 [place] deficit: cg 10:30: [id number] 00 Respiratory lung sounds Respirator Resolve 2018-112019-12-10 Freida deficit y d 12-02 08:30:00 [place] 10:30: [id number] 00 Respiratory smoker Respirator Resolve 2018-112019-11-21 Freida y d 12-02 10:30:00 [place] 10:30: [id number] 00 Respiratory nebulizer Respirator Active 2018-11 Freida treatment y 12-02 [place] in home 10:30: [id number] 00 Endo/Benjamin anti-coagul Endo/Benjamin Resolve 2018-112019-10-06 Freida ation d 12-02 13:19:00 [place] therapy 10:30: [id number] 00 Sensory impaired Sensory Active 2018-11 Freida hearing 12-02 [place] 10:30: [id number] 00 Integument skin Integument Resolve 2018-112019-10-08 Freida integrity d 12-02 14:40:00 [place] risk 10:30: [id number] 00 Nutrition nutritional Nutrition Resolve 2018-112019-10-13 Freida restriction d 12-02 10:23:00 [place] s 10:30: [id number] 00 Elimination urinary Eliminatio Resolve 2018-112019-10-06 Freida incontinenc n d 12-02 13:19:00 [place] e 10:30: [id number] 00 Neuro confusion Neuro/Emot Active 2018-11 Freida present ion 12-02 [place] 10:30: [id number] 00 Neuro anxiety Neuro/Emot Active 2018-11 Freida present ion 12-02 [place] 10:30: [id number] 00 Neuro depressive Neuro/Emot Active 2018-11 Freida feelings ion 12-02 [place] present 10:30: [id number] 00 Neuro impaired Neuro/Emot Active 2018-11 Freida decision-ma ion 12-02 [place] claritza 10:30: [id number] 00 Activity ADL Activity Active 2018-11 Freida assistance 12-02 [place] required 10:30: [id number] 00 Activity self-care Activity Resolve 2018-112019-10-06 Fre[place] deficit d 12-02 13:19:00 [place] 10:30: [id number] 00 Safety cannot be Safety Active 2018-11 Freida left alone 12-02 [place] 10:30: [id number] 00 Safety knowledge/s Safety Resolve 2018-112019-10-16 Freida kill d 12-02 14:28:00 [place] deficit: pt 10:30: [id number] 00 Safety fall risk Safety Resolve 2018-112019-10-10 Freida factor d 12-02 14:55:00 [place] present 10:30: [id number] 00 Safety risk for Safety Resolve 2018-112019-10-10 Freida hospitaliza d 12-02 14:55:00 [place] tion 10:30: [id number] 00 Medication oral med Meds Resolve 2018-112019-10-13 Freida assistance d 12-02 10:23:00 [place] required 10:30: [id number] 00 Musculoskel transfer Musculoske Resolve 2018-112019-10-13 Freida etal assistance letal d 12-02 10:23:00 [place] required 10:30: [id number] 00 Musculoskel requires Musculoske Resolve 2018-112019-10-13 Freida etal human letal d 12-02 10:23:00 Serena assist to 10:30: [id number] leave home 00 Cardio edema Cardiovasc Resolve 2018-112019-11-11 Radha ular d 12-10 12:38:00 [place] 14:55: RN 00 Safety risk for Safety Resolve 2018-112019-10-16 Radha hospitaliza d 12-13 14:28:00 [place] tion 10:23: RN 00 Medication oral med Meds Resolve 2018-112019-11-17 Radha assistance d 12-16 08:35:00 [place] required 14:28: RN 00 Safety knowledge/s Safety Resolve 2018-112019-11-14 Evelyn kill d 12-17 08:30:00 [place] deficit: pt 10:00: [id number] 00 Safety risk for Safety Resolve 2018-112019-10-31 Evelyn hospitaliza d 12-17 14:05:00 [place] tion 10:00: [id number] 00 Social knowledge/s RUSLAN: Active 2018-11 Evelyn Services kill Social 12-17 [place] deficit - Services 10:00: [id number] pt 00 Safety can be left Safety Active 2018-11 Shanelle pool for 12-22 Ernestina only short 12:04: [id number] periods 00 Safety fire risk Safety Resolve [...] 14:05:00 [place] present 14:05: RN 00 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 PT/OT: Active 2018-11 Georges urance rdination Balance/En 01-01 [place], deficit durance 15:00: PT 00 [id number] Gait/Locomo gait PT/OT: Active 2018-11 Georges tion deficit Gait/Locom 01-01 Cory, problems otion 15:00: PT 00 [id number] Elimination urinary Eliminatio Resolve 2018-112019-11-03 Radha incontinenc [...] hospitaliza d 2- 08:30:00 [place] tion 08:30: [id number] 00 Elimination urinary Eliminatio Resolve 2018-112019-11-21 Radha incontinenc n d 01-18 10:30:00 [place] e 08:35: RN 00 Safety risk for Safety Resolve 2018-112019-11-17 Radha hospitaliza d 01-18 08:35:00 [place] tion 08:35: RN 00 Safety risk for Safety Resolve 2018-112019-11-24 Georges hospitaliza d 01-21 08:45:00 flor Ray 09:15: PT 00 [id number] Medication oral med Meds Resolve 2018-112019-11-27 Martha assistance d 01-22 08:35:00 [place] required 10:30: 00 Medication inhalant Meds Resolve 2018-112019-11-27 Martha med d 01-22 08:35:00 [place] assistance 10:30: required 00 Elimination urinary Eliminatio Resolve 2018-112019-11-24 Radha incontinenc n d 08:45:00 [place] e 08:45: RN 00 Nutrition nutritional Nutrition Active 2018-11 Georges restriction guille Ray 13:15: PT 00 [id number] Safety risk for Safety Unknown 2018-11 Georges [facility] flor Ray 13:15: PT 00 [id number] Pain frequent Pain Mgmt Active Radha pain [...] RN 00 Respiratory lung sounds Respirator Active 2019- Radha deficit y 12-16 [place] 09:00: RN 00 Respiratory smoker Respirator Active 2019-0 Radha y 12-16 [place] 09:00: RN 00 Respiratory knowledge/s Respirator Active 2019-0 Radha kill y 12-16 [place] deficit: pt 09:00: RN 00 Safety risk for Safety Resolve 2019-12-16 Radha hospitaliza d 12-16 09:00:00 [place] tion 09:00: RN 00 Safety risk for Safety Active 2019- Evelyn hospitaliza 12-24 [place] tion 09:00: [id number] 00 Elimination urinary Eliminatio Active Radha incontinenc n 12-26 [place] e 12:25: RN 00 Elimination urinary Eliminatio Active Radha urgency n 12-26 [place] 12:25: RN 00 Elimination urinary Eliminatio Active 2019-0 Radha frequency n 12-26 [place] 12:25: RN 00 Allergies, Adverse Reactions, Alerts Allergy Allergy Type Status Severity Reaction(s) Onset Inactive Treating Comments Name Date Date Clinician codeine Base Active Unknown Reaction 2019-03 [place] Ingredient Quan Medications Ordered Filled Start Stop [...] nded nded release release primidone primidone 2018-11- Yes Jander Unknown Unknown 250 mg 250 [...] Unknown Unknown 15 mg 15 mg 12-02 MDCinthia tablet tablet Chest Chest 2018-11 Yes Jander [...] mg 01-01 ,Cinthia tablet tablet ibuprofen ibuprofen 2018-11- Yes Jander Unknown Unknown 400 mg 400 mg 01-01 ,Cinthia tablet tablet pantoprazol pantoprazol 2018-11- Yes Jander Unknown Unknown e 40 mg e 40 mg 01-01 ,Cinthia tablet,manny tablet,manny yed release yed release cefPODOXime cefPODOXime 2018-11- Yes Jander Unknown Unknown 200 mg 200 mg 01-01 ,Cinthia tablet tablet pantoprazol pantoprazol 2018-11 Yes Jander Unknown Unknown e 40 mg e 40 mg 01-01 ,Cinthia tablet,manny tablet,manny yed release yed release predniSONE predniSONE 2018-11- Yes Jander Unknown Unknown 10 mg 10 mg 01-05 ,Cinthia tablet tablet predniSONE predniSONE 2018-11- Yes [...] Unknown Unknown mg capsule mg capsule 12-04 MD,Cinthia oxygen oxygen Yes Jander Unknown Unknown 12-04 MD,Cinthia morphine morphine Yes Jander Unknown Unknown concentrate concentrate 12-10 MD,Cinthia 100 mg/5 mL 100 mg/5 mL (20 mg/mL) (20 mg/mL) oral oral solution solution predniSONE predniSONE Yes Jander Unknown Unknown 10 mg 10 mg 12-11 MD,Cinthia tablet tablet primidone primidone Yes [place] Unknown Unknown 250 mg 250 mg 12-10 MD,Joe tablet tablet ibuprofen ibuprofen Yes Jander Unknown Unknown 200 mg 200 mg 12-16 MD,Cinthia tablet tablet Vital Signs Vital Name Observation Time Observation Value Comments SYSTOLIC mm[Hg] 2019-12-29 18:10:12 134 mm[Hg] mm[Hg] Method: Sit DIASTOLIC mm[Hg] 2019-12-29 18:10:12 82 mm[Hg] mm[Hg] Method: Sit PULSE 2019-12-29 18:10:12 88 /min /min RESP RATE 2019-12-29 18:10:12 20 /min /min TEMP 2019-12-29 18:10:12 97.5 [degF] Procedures This patient has no known procedures. Results This patient has no known results.
--- OUTSIDE RECORDS SUMMARY | 2019-12-30 09:05 | XMS REPORT ---
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) (current) [place] use of use of RN non-steroid non-steroid al al anti-inflam anti-inflam matories matories (NSAID) (NSAID) Dependence Dependence Diagnosis Active Radha on on [place] wheelchair wheelchair RN Personal Personal Diagnosis Active Radha history of history of [place] irradiation irradiation RN Pain frequent Pain Mgmt Resolve 2018-112019-10-13 Freida pain d 12-02 10:23:00 [place] 10:30: [id number] 00 Respiratory dyspnea Respirator Active 2018-11 Freida present 12-02 [place] 10:30: [id number] 00 Respiratory oxygen Respirator Active 2018-11 Freida treatments 12-02 [place] in home 10:30: [id number] 00 Respiratory knowledge/s Respirator Resolve 2018-112019-12-10 Freida kill y d 12-02 08:30:00 [place] deficit: pt 10:30: [id number] 00 Respiratory knowledge/s Respirator Resolve 2018-112019-12-10 Freida kill y d 12-02 08:30:00 [place] deficit: cg 10:30: [id number] 00 Respiratory lung sounds Respirator Resolve 2018-112019-12-10 Freida deficit y d 12-02 08:30:00 [place] 10:30: [id number] 00 Respiratory smoker Respirator Resolve 2018-112019-11-21 Freida y d 12-02 10:30:00 [place] 10:30: [id number] 00 Respiratory nebulizer Respirator Active 2018-11 Freida treatment y 12-02 [place] in home 10:30: [id number] 00 Endo/Benjamin anti-coagul Endo/Benjamin Resolve 2018-112019-10-06 Freida ation d 12-02 13:19:00 [place] therapy 10:30: [id number] 00 Sensory impaired Sensory Active 2018-11 Freida hearing 12-02 [place] 10:30: [id number] 00 Integument skin Integument Resolve 2018-112019-10-08 Freida integrity d 12-02 14:40:00 [place] risk 10:30: [id number] 00 Nutrition nutritional Nutrition Resolve 2018-112019-10-13 Freida restriction d 12-02 10:23:00 [place] s 10:30: [id number] 00 Elimination urinary Eliminatio Resolve 2018-112019-10-06 Freida incontinenc n d 12-02 13:19:00 [place] e 10:30: [id number] 00 Neuro confusion Neuro/Emot Active 2018-11 Freida present ion 12-02 [place] 10:30: [id number] 00 Neuro anxiety Neuro/Emot Active 2018-11 Freida present ion 12-02 [place] 10:30: [id number] 00 Neuro depressive Neuro/Emot Active 2018-11 Freida feelings ion 12-02 [place] present 10:30: [id number] 00 Neuro impaired Neuro/Emot Active 2018-11 Freida decision-ma ion 12-02 [place] claritza 10:30: [id number] 00 Activity ADL Activity Active 2018-11 Freida assistance 12-02 [place] required 10:30: [id number] 00 Activity self-care Activity Resolve 2018-112019-10-06 Freida deficit d 12-02 13:19:00 [place] 10:30: [id number] 00 Safety cannot be Safety Active 2018-11 Freida left alone 12-02 [place] 10:30: [id number] 00 Safety knowledge/s Safety Resolve 2018-112019-10-16 Freida kill d 12-02 14:28:00 [place] deficit: pt 10:30: [id number] 00 Safety fall risk Safety Resolve 2018-112019-10-10 Freida factor d 12-02 14:55:00 [place] present 10:30: [id number] 00 Safety risk for Safety Resolve 2018-112019-10-10 Freida hospitaliza d 12-02 14:55:00 Serena tion 10:30: [id number] 00 Medication oral med Meds Resolve 2018-112019-10-13 Freida assistance d 12-02 10:23:00 [place] required 10:30: [id number] 00 Musculoskel transfer Musculoske Resolve 2018-112019-10-13 Freida etal assistance letal d 12-02 10:23:00 [place] required 10:30: [id number] 00 Musculoskel requires Musculoske Resolve 2018-112019-10-13 Freida etal human letal d 12-02 10:23:00 Serena assist to 10:30: [id number] leave home 00 Cardio edema Cardiovasc Resolve 2018-112019-11-11 Radha ular d 12-10 12:38:00 [place] 14:55: RN 00 Safety risk for Safety Resolve 2018-112019-10-16 Radha hospitaliza d 12-13 14:28:00 [place] tion 10:23: RN 00 Medication oral med Meds Resolve 2018-112019-11-17 Radha assistance d 12-16 08:35:00 [place] required 14:28: RN 00 Safety knowledge/s Safety Resolve 2018-112019-11-14 Evelyn kill d 12-17 08:30:00 [place] deficit: pt 10:00: [id number] 00 Safety risk for Safety Resolve 2018-112019-10-31 Evelyn hospitaliza d 12-17 14:05:00 [place] tion 10:00: [id number] 00 Social knowledge/s RUSLAN: Active 2018-11 Evelyn Services kill Social 12-17 [place] deficit - Services 10:00: [id number] pt 00 Safety can be left Safety Active 2018-11 Shanelle pool for 12-22 Ernestina only short 12:04: [id number] periods 00 Safety fire risk Safety Resolve [...] RN 00 Activity self-care Activity Resolve 2018-112019-10-31 Rdaha deficit d 2- 14:05:00 [place] 14:05: RN 00 Safety fall risk Safety Resolve 2018-112019-10-31 Radha factor d 01-01 14:05:00 [place] present 14:05: RN 00 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 PT/OT: Active 2018-11 Georges urance rdination Balance/En 01-01 Cory, deficit durance 15:00: PT 00 [id number] Gait/Locomo gait PT/OT: Active 2018-11 Georges tion deficit Gait/Locom 01-01 Cory, problems otion 15:00: PT 00 375006-3 Elimination urinary Eliminatio Resolve 2018-112019-11-03 Radha incontinenc [...] hospitaliza d 2- 08:30:00 [place] tion 08:30: [id number] 00 Elimination urinary Eliminatio Resolve 2018-112019-11-21 Radha incontinenc n d 01-18 10:30:00 [place] e 08:35: RN 00 Safety risk for Safety Resolve 2018-112019-11-17 Radha hospitaliza d 01-18 08:35:00 [place] tion 08:35: RN 00 Safety risk for Safety Resolve 2018-112019-11-24 Georges hospitaliza d 01-21 08:45:00 flor Ray 09:15: PT 00 [id number] Medication oral med Meds Resolve 2018-112019-11-27 Martha assistance d 01-22 08:35:00 [place] required 10:30: 00 Medication inhalant Meds Resolve 2018-112019-11-27 Martha med d 01-22 08:35:00 [place] assistance 10:30: required 00 Elimination urinary Eliminatio Resolve 2018-112019-11-24 Radha incontinenc n d 08:45:00 [place] e 08:45: RN 00 Nutrition nutritional Nutrition Active 2018-11 Georges restriction guille Ray 13:15: PT 00 [id number] Safety risk for Safety Unknown 2018-11 Georges [facility] flor Ray 13:15: PT 00 855706-6 Pain frequent Pain Mgmt Active Radha pain [...] Safety risk for Safety Active Radha hospitaliza 12-16 [place] tion 09:00: RN 00 Allergies, Adverse Reactions, Alerts Allergy Allergy Type Status Severity Reaction(s) Onset Inactive Treating Comments Name Date Date Clinician codeine Base Active Unknown Reaction 2019-03 [place] Ingredient Quan Medications Ordered Filled Start Stop Current Ordering Indication Dosage Frequency Signature Comments Components Medication Medication Date Date Medication? Clinician (SIG) Name Name FLUoxetine FLUoxetine 2018-11 Yes Jander Unknown Unknown 20 mg 20 mg - ,Cinthia capsule capsule atorvastati atorvastati 2018-11 Yes Jander Unknown Unknown n 20 mg n 20 mg 12-02 MDCinthia tablet tablet ProAir HFA ProAir HFA [...] Unknown Unknown 10 mg 10 mg 12-04 ,Cinthia tablet tablet benzonatate benzonatate Yes Jander Unknown Unknown 100 mg 100 mg 12-04 ,Cinthia capsule capsule Tamiflu 75 Tamiflu 75 2019- Yes Jander Unknown Unknown mg capsule mg capsule 12-04 ,Cinthia oxygen oxygen 2020-0 Yes Jander Unknown Unknown 12-04 ,Cinthia morphine morphine 2019- Yes Jander Unknown Unknown concentrate concentrate -15 MD,Cinthia 100 mg/5 mL 100 mg/5 mL (20 mg/mL) (20 mg/mL) oral oral solution solution predniSONE predniSONE 2019- Yes Jander Unknown Unknown 10 mg 10 mg -16 MD,Cinthia tablet tablet primidone primidone Yes [place] Unknown Unknown 250 mg 250 mg -15 MD,Joe tablet tablet ibuprofen ibuprofen Yes Jander Unknown Unknown 200 mg 200 mg - MD,Cinthia tablet tablet Vital Signs Vital Name [...]
--- OUTSIDE RECORDS SUMMARY | 2019-12-30 09:05 | XMS REPORT ---
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 Diagnosis Active Radha (current) (current) [place] use [...] urinary urinary RN (tract) (tract) infections infections intermediate frame tender intermediate frame tender Diagnosis Active Radha (current) (current) [place] use of use of RN non-steroid non-steroid al al anti-inflam anti-inflam matories matories (NSAID) (NSAID) Dependence Dependence Diagnosis Active Radha on on [place] wheelchair wheelchair RN Personal Personal Diagnosis Active Radha history of history of [place] irradiation irradiation RN Pain frequent Pain Mgmt Resolve 2018-112019-10-13 Freida pain d 12-02 10:23:00 [place] 10:30: [id number] 00 Respiratory dyspnea Respirator Active 2018-11 Freida present 12-02 [place] 10:30: [id number] 00 Respiratory oxygen Respirator Active 2018-11 Freida treatments 12-02 [place] in home 10:30: [id number] 00 Respiratory knowledge/s Respirator Resolve 2018-112019-12-10 Freida kill y d 12-02 08:30:00 [place] deficit: pt 10:30: [id number] 00 Respiratory knowledge/s Respirator Resolve 2018-112019-12-10 Freida kill y d 12-02 08:30:00 [place] deficit: cg 10:30: [id number] 00 Respiratory lung sounds Respirator Resolve 2018-112019-12-10 Freida deficit y d 12-02 08:30:00 [place] 10:30: [id number] 00 Respiratory smoker Respirator Resolve 2018-112019-11-21 Freida y d 12-02 10:30:00 [place] 10:30: [id number] 00 Respiratory nebulizer Respirator Active 2018-11 Freida treatment y 12-02 [place] in home 10:30: [id number] 00 Endo/Benjamin anti-coagul Endo/Benjamin Resolve 2018-112019-10-06 Freida ation d 12-02 13:19:00 [place] therapy 10:30: [id number] 00 Sensory impaired Sensory Active 2018-11 Freida hearing 12-02 [place] 10:30: [id number] 00 Integument skin Integument Resolve 2018-112019-10-08 Freida integrity d 12-02 14:40:00 [place] risk 10:30: [id number] 00 Nutrition nutritional Nutrition Resolve 2018-112019-10-13 Freida restriction d 12-02 10:23:00 [place] s 10:30: [id number] 00 Elimination urinary Eliminatio Resolve 2018-112019-10-06 Freida incontinenc n d 12-02 13:19:00 [place] e 10:30: [id number] 00 Neuro confusion Neuro/Emot Active 2018-11 Freida present ion 12-02 [place] 10:30: [id number] 00 Neuro anxiety Neuro/Emot Active 2018-11 Freida present ion 12-02 [place] 10:30: [id number] 00 Neuro depressive Neuro/Emot Active 2018-11 Freida feelings ion 12-02 [place] present 10:30: [id number] 00 Neuro impaired Neuro/Emot Active 2018-11 Freida decision-ma ion 12-02 [place] claritza 10:30: [id number] 00 Activity ADL Activity Active 2018-11 Freida assistance 12-02 [place] required 10:30: [id number] 00 Activity self-care Activity Resolve 2018-112019-10-06 Freida deficit d 12-02 13:19:00 [place] 10:30: [id number] 00 Safety cannot be Safety Active 2018-11 Freida left alone 12-02 [place] 10:30: [id number] 00 Safety knowledge/s Safety Resolve 2018-112019-10-16 Freida kill d 12-02 14:28:00 [place] deficit: pt 10:30: [id number] 00 Safety fall risk Safety Resolve 2018-112019-10-10 Freida factor d 12-02 14:55:00 [place] present 10:30: [id number] 00 Safety risk for Safety Resolve 2018-112019-10-10 Freida hospitaliza d 12-02 14:55:00 Serena tion 10:30: [id number] 00 Medication oral med Meds Resolve 2018-112019-10-13 Freida assistance d 12-02 10:23:00 [place] required 10:30: [id number] 00 Musculoskel transfer Musculoske Resolve 2018-112019-10-13 Freida etal assistance letal d 12-02 10:23:00 Serena required 10:30: [id number] 00 Musculoskel requires Musculoske Resolve 2018-112019-10-13 Freida etal human letal d 12-02 10:23:00 Serena assist to 10:30: [id number] leave home 00 Cardio edema Cardiovasc Resolve 2018-112019-11-11 Radha ular d 12-10 12:38:00 [place] 14:55: RN 00 Safety risk for Safety Resolve 2018-112019-10-16 Radha hospitaliza d 12-13 14:28:00 [place] tion 10:23: RN 00 Medication oral med Meds Resolve 2018-112019-11-17 Radha assistance d 12-16 08:35:00 [place] required 14:28: RN 00 Safety knowledge/s Safety Resolve 2018-112019-11-14 Evelyn kill d 12-17 08:30:00 [place] deficit: pt 10:00: [id number] 00 Safety risk for Safety Resolve 2018-112019-10-31 Evelyn hospitaliza d 12-17 14:05:00 [place] tion 10:00: [id number] 00 Social knowledge/s RUSLAN: Active 2018-11 Evelyn Services kill Social 12-17 [place] deficit - Services 10:00: [id number] pt 00 Safety can be left Safety Active 2018-11 Shanelle pool for 12-22 Ernestina only short 12:04: [id number] periods 00 Safety fire risk Safety Resolve [...] 14:05:00 [place] present 14:05: RN 00 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 PT/OT: Active 2018-11 Georges urance rdination Balance/En 01-01 [place], deficit durance 15:00: PT 00 [id number] Gait/Locomo gait PT/OT: Active 2018-11 Georges tion deficit Gait/Locom 01-01 Cory, problems otion 15:00: PT 00 [id number] Elimination urinary Eliminatio Resolve 2018-112019-11-03 Radha incontinenc [...] hospitaliza d 2- 08:30:00 [place] tion 08:30: [id number] 00 Elimination urinary Eliminatio Resolve 2018-112019-11-21 Radha incontinenc n d 01-18 10:30:00 [place] e 08:35: RN 00 Safety risk for Safety Resolve 2018-112019-11-17 Radha hospitaliza d 01-18 08:35:00 [place] tion 08:35: RN 00 Safety risk for Safety Resolve 2018-112019-11-24 Georges hospitaliza d 01-21 08:45:00 flor Ray 09:15: PT 00 301285-0 Medication oral med Meds Resolve 2018-112019-11-27 Martha assistance d 01-22 08:35:00 [place] required 10:30: 00 Medication inhalant Meds Resolve 2018-112019-11-27 Martha med d 01-22 08:35:00 [place] assistance 10:30: required 00 Elimination urinary Eliminatio Resolve 2018-112019-11-24 Radha incontinenc n d 08:45:00 [place] e 08:45: RN 00 Nutrition nutritional Nutrition Active 2018-11 Georges restriction guille Ray 13:15: PT 00 [id number] Safety risk for Safety Unknown 2018-11 Georges [facility] flor Ray 13:15: PT 00 130236-1 Pain frequent Pain Mgmt Active Radha pain [...] 08:30: RN 00 Elimination urinary Eliminatio Active Radha incontinenc n 12-10 [place] e 08:30: RN 00 Safety risk for Safety Resolve 2019-12-10 Radha hospitaliza d 12-10 08:30:00 [place] tion 08:30: RN 00 Allergies, Adverse Reactions, Alerts Allergy Allergy Type Status Severity Reaction(s) Onset Inactive Treating Comments Name Date Date Clinician codeine Base Active Unknown Reaction 2019-03 [place] Ingredient Quan Medications Ordered Filled Start Stop [...]
--- OUTSIDE RECORDS SUMMARY | 2019-12-30 09:05 | XMS REPORT ---
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 Radha (current) (current) [place] use of use of RN non-steroid non-steroid al al anti-inflam anti-inflam matories matories (NSAID) (NSAID) Dependence Dependence Diagnosis Active Radha on on [place] wheelchair wheelchair RN Personal Personal Diagnosis Active Radha history of history of [place] irradiation irradiation RN Pain frequent Pain Mgmt Resolve 2018-112019-10-13 Freida pain d 12-02 10:23:00 [place] 10:30: [id number] 00 Respiratory dyspnea Respirator Active 2018-11 Freida present 12-02 [place] 10:30: [id number] 00 Respiratory oxygen Respirator Active 2018-11 Freida treatments 12-02 [place] in home 10:30: [id number] 00 Respiratory knowledge/s Respirator Resolve 2018-112019-12-10 Freida kill y d 12-02 08:30:00 [place] deficit: pt 10:30: [id number] 00 Respiratory knowledge/s Respirator Resolve 2018-112019-12-10 Freida kill y d 12-02 08:30:00 [place] deficit: cg 10:30: [id number] 00 Respiratory lung sounds Respirator Resolve 2018-112019-12-10 Freida deficit y d 12-02 08:30:00 [place] 10:30: [id number] 00 Respiratory smoker Respirator Resolve 2018-112019-11-21 Freida y d 12-02 10:30:00 [place] 10:30: [id number] 00 Respiratory nebulizer Respirator Active 2018-11 Freida treatment y 12-02 [place] in home 10:30: [id number] 00 Endo/Benjamin anti-coagul Endo/Benjamin Resolve 2018-112019-10-06 Freida ation d 12-02 13:19:00 [place] therapy 10:30: [id number] 00 Sensory impaired Sensory Active 2018-11 Freida hearing 12-02 [place] 10:30: [id number] 00 Integument skin Integument Resolve 2018-112019-10-08 Freida integrity d 12-02 14:40:00 [place] risk 10:30: [id number] 00 Nutrition nutritional Nutrition Resolve 2018-112019-10-13 Freida restriction d 12-02 10:23:00 [place] s 10:30: [id number] 00 Elimination urinary Eliminatio Resolve 2018-112019-10-06 Freida incontinenc n d 12-02 13:19:00 [place] e 10:30: [id number] 00 Neuro confusion Neuro/Emot Active 2018-11 Freiad present ion 12-02 [place] 10:30: [id number] 00 Neuro anxiety Neuro/Emot Active 2018-11 Freida present ion 12-02 [place] 10:30: [id number] 00 Neuro depressive Neuro/Emot Active 2018-11 Freida feelings ion 12-02 [place] present 10:30: [id number] 00 Neuro impaired Neuro/Emot Active 2018-11 Freida decision-ma ion 12-02 [place] claritza 10:30: [id number] 00 Activity ADL Activity Active 2018-11 Freida assistance 12-02 [place] required 10:30: [id number] 00 Activity self-care Activity Resolve 2018-112019-10-06 Freida deficit d 12-02 13:19:00 [place] 10:30: [id number] 00 Safety cannot be Safety Active 2018-11 Freida left alone 12-02 [place] 10:30: [id number] 00 Safety knowledge/s Safety Resolve 2018-112019-10-16 Freida kill d 12-02 14:28:00 [place] deficit: pt 10:30: [id number] 00 Safety fall risk Safety Resolve 2018-112019-10-10 Freida factor d 12-02 14:55:00 [place] present 10:30: [id number] 00 Safety risk for Safety Resolve 2018-112019-10-10 Freida hospitaliza d 12-02 14:55:00 [place] tion 10:30: [id number] 00 Medication oral med Meds Resolve 2018-112019-10-13 Freida assistance d 12-02 10:23:00 [place] required 10:30: [id number] 00 Musculoskel transfer Musculoske Resolve 2018-112019-10-13 Freida etal assistance letal d 12-02 10:23:00 Se[place] required 10:30: [id number] 00 Musculoskel requires Musculoske Resolve 2018-112019-10-13 Freida etal human letal d 12-02 10:23:00 Serena assist to 10:30: [id number] leave home 00 Cardio edema Cardiovasc Resolve 2018-112019-11-11 Radha ular d 12-10 12:38:00 [place] 14:55: RN 00 Safety risk for Safety Resolve 2018-112019-10-16 Radha hospitaliza d 12-13 14:28:00 [place] tion 10:23: RN 00 Medication oral med Meds Resolve 2018-112019-11-17 Radha assistance d 12-16 08:35:00 [place] required 14:28: RN 00 Safety knowledge/s Safety Resolve 2018-112019-11-14 Evelyn kill d 12-17 08:30:00 [place] deficit: pt 10:00: [id number] 00 Safety risk for Safety Resolve 2018-112019-10-31 Evelyn hospitaliza d 12-17 14:05:00 [place] tion 10:00: [id number] 00 Social knowledge/s RUSLAN: Active 2018-11 Evelyn Services kill Social 12-17 [place] deficit - Services 10:00: [id number] pt 00 Safety can be left Safety Active 2018-11 Shanelle pool for 12-22 Ernestina only short 12:04: [id number] periods 00 Safety fire risk Safety Resolve 2018-112019-10-31 Yesy present d 12-27 14:05:00 Carrier RN 11:50: 00 Safety fire risk: Safety Resolve 2018-112019-10-31 Yesy smoking/O2 d 12-27 14:05:00 Carrier RN in use 11:50: 00 Medication potential Meds Resolve 2018-112019-11-27 Eysy clinically d 12-27 08:35:00 Carrier RN significant 11:50: medication 00 issue Elimination urinary Eliminatio Resolve 2018-112019-10-31 Radha incontinenc n d 2- 14:05:00 [place] e 14:05: RN 00 Activity self-care Activity Resolve 2018-112019-10-31 Radha deficit d 2- 14:05:00 [place] 14:05: RN 00 Safety fall risk Safety Resolve 2018-112019-10-31 Radha factor d 01-01 14:05:00 [place] present 14:05: RN 00 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 PT/OT: Active 2018-11 Georges urance rdination Balance/En 01-01 [place], deficit durance 15:00: PT 00 [id number] Gait/Locomo gait PT/OT: Active 2018-11 Georges tion deficit Gait/Locom 01-01 Cory, problems otion 15:00: PT 00 [id number] Elimination urinary Eliminatio Resolve 2018-112019-11-03 Radha incontinenc [...] hospitaliza d 2- 08:30:00 [place] tion 08:30: [id number] 00 Elimination urinary Eliminatio Resolve 2018-112019-11-21 Radha incontinenc n d 01-18 10:30:00 [place] e 08:35: RN 00 Safety risk for Safety Resolve 2018-112019-11-17 Radha hospitaliza d 01-18 08:35:00 [place] tion 08:35: RN 00 Safety risk for Safety Resolve 2018-112019-11-24 Georges hospitaliza d 01-21 08:45:00 [place] Ray 09:15: PT 00 [id number] Medication oral med Meds Resolve 2018-112019-11-27 Martha assistance d 01-22 08:35:00 [place] required 10:30: 00 Medication inhalant Meds Resolve 2018-112019-11-27 Martha med d 01-22 08:35:00 [place] assistance 10:30: required 00 Elimination urinary Eliminatio Resolve 2018-112019-11-24 Radha incontinenc n d 08:45:00 [place] e 08:45: RN 00 Nutrition nutritional Nutrition Active 2018-11 Georges restriction guille Ray 13:15: PT 00 [id number] Safety risk for Safety Unknown 2018-11 Georges [facility] flor Ray 13:15: PT 00 [id number] Pain frequent Pain Mgmt Active Radha pain [...] Clinician codeine Base Active Unknown Reaction 2019-03 [place] Ingredient 08 Quan Medications Ordered Filled Start [...]
--- OUTSIDE RECORDS SUMMARY | 2019-12-30 09:05 | XMS REPORT ---
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 (current) (current) [place] use of use of RN aspirin aspirin care home care home Diagnosis Active Radha (current) (current) [place] [...] urinary urinary RN (tract) (tract) infections infections 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 Radha (current) (current) [place] use of use of RN non-steroid non-steroid al al anti-inflam anti-inflam matories matories (NSAID) (NSAID) Dependence Dependence Diagnosis Active Radha on on [place] wheelchair wheelchair RN Personal Personal Diagnosis Active Radha history of history of [place] irradiation irradiation RN Pain frequent Pain Mgmt Resolve 2018-112019-10-13 Freida pain d 12-02 10:23:00 [place] 10:30: [id number] 00 Respiratory dyspnea Respirator Active 2018-11 Freida present 12-02 [place] 10:30: [id number] 00 Respiratory oxygen Respirator Active 2018-11 Freida treatments 12-02 [place] in home 10:30: [id number] 00 Respiratory knowledge/s Respirator Resolve 2018-112019-12-10 Freida kill y d 12-02 08:30:00 [place] deficit: pt 10:30: [id number] 00 Respiratory knowledge/s Respirator Resolve 2018-112019-12-10 Freida kill y d 12-02 08:30:00 [place] deficit: cg 10:30: [id number] 00 Respiratory lung sounds Respirator Resolve 2018-112019-12-10 Freida deficit y d 12-02 08:30:00 [place] 10:30: [id number] 00 Respiratory smoker Respirator Resolve 2018-112019-11-21 Freida y d 12-02 10:30:00 [place] 10:30: [id number] 00 Respiratory nebulizer Respirator Active 2018-11 Freida treatment y 12-02 [place] in home 10:30: [id number] 00 Endo/Benjamin anti-coagul Endo/Benjamin Resolve 2018-112019-10-06 Freida ation d 12-02 13:19:00 [place] therapy 10:30: [id number] 00 Sensory impaired Sensory Active 2018-11 Freida hearing 12-02 [place] 10:30: [id number] 00 Integument skin Integument Resolve 2018-112019-10-08 Freida integrity d 12-02 14:40:00 [place] risk 10:30: [id number] 00 Nutrition nutritional Nutrition Resolve 2018-112019-10-13 Freida restriction d 12-02 10:23:00 [place] s 10:30: [id number] 00 Elimination urinary Eliminatio Resolve 2018-112019-10-06 Freida incontinenc n d 12-02 13:19:00 [place] e 10:30: [id number] 00 Neuro confusion Neuro/Emot Active 2018-11 Freida present ion 12-02 [place] 10:30: [id number] 00 Neuro anxiety Neuro/Emot Active 2018-11 Freida present ion 12-02 [place] 10:30: [id number] 00 Neuro depressive Neuro/Emot Active 2018-11 Freida feelings ion 12-02 [place] present 10:30: [id number] 00 Neuro impaired Neuro/Emot Active 2018-11 Freida decision-ma ion 12-02 [place] claritza 10:30: [id number] 00 Activity ADL Activity Active 2018-11 Freida assistance 12-02 [place] required 10:30: [id number] 00 Activity self-care Activity Resolve 2018-112019-10-06 Freida deficit d 12-02 13:19:00 [place] 10:30: [id number] 00 Safety cannot be Safety Active 2018-11 Freida left alone 12-02 [place] 10:30: [id number] 00 Safety knowledge/s Safety Resolve 2018-112019-10-16 Freida kill d 12-02 14:28:00 [place] deficit: pt 10:30: [id number] 00 Safety fall risk Safety Resolve 2018-112019-10-10 Freida factor d 12-02 14:55:00 [place] present 10:30: [id number] 00 Safety risk for Safety Resolve 2018-112019-10-10 Freida hospitaliza d 12-02 14:55:00 Serena tion 10:30: [id number] 00 Medication oral med Meds Resolve 2018-112019-10-13 Freida assistance d 12-02 10:23:00 [place] required 10:30: [id number] 00 Musculoskel transfer Musculoske Resolve 2018-112019-10-13 Freida etal assistance letal d 12-02 10:23:00 Serena required 10:30: [id number] 00 Musculoskel requires Musculoske Resolve 2018-112019-10-13 Freida etal human letal d 12-02 10:23:00 Serena assist to 10:30: [id number] leave home 00 Cardio edema Cardiovasc Resolve 2018-112019-11-11 Radha ular d 12-10 12:38:00 [place] 14:55: RN 00 Safety risk for Safety Resolve 2018-112019-10-16 Radha hospitaliza d 12-13 14:28:00 [place] tion 10:23: RN 00 Medication oral med Meds Resolve 2018-112019-11-17 Radha assistance d 12-16 08:35:00 [place] required 14:28: RN 00 Safety knowledge/s Safety Resolve 2018-112019-11-14 Evelyn kill d 12-17 08:30:00 [place] deficit: pt 10:00: [id number] 00 Safety risk for Safety Resolve 2018-112019-10-31 Evelyn hospitaliza d 12-17 14:05:00 [place] tion 10:00: [id number] 00 Social knowledge/s RUSLAN: Active 2018-11 Evelyn Services kill Social 12-17 [place] deficit - Services 10:00: [id number] pt 00 Safety can be left Safety Active 2018-11 Shanelle pool for 12-22 Ernestina only short 12:04: [id number] periods 00 Safety fire risk Safety Resolve [...] 14:05:00 [place] present 14:05: RN 00 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 PT/OT: Active 2018-11 Georges urance rdination Balance/En 01-01 Cory, deficit durance 15:00: PT 00 [id number] Gait/Locomo gait PT/OT: Active 2018-11 Georges tion deficit Gait/Locom 01-01 Cory, problems otion 15:00: PT 00 [id number] Elimination urinary Eliminatio Resolve 2018-112019-11-03 Radha incontinenc [...] hospitaliza d 2- 08:30:00 [place] tion 08:30: [id number] 00 Elimination urinary Eliminatio Resolve 2018-112019-11-21 Radha incontinenc n d 01-18 10:30:00 [place] e 08:35: RN 00 Safety risk for Safety Resolve 2018-112019-11-17 Radha hospitaliza d 01-18 08:35:00 [place] tion 08:35: RN 00 Safety risk for Safety Resolve 2018-112019-11-24 Georges hospitaliza d 01-21 08:45:00 flor Ray 09:15: PT 00 [id number] Medication oral med Meds Resolve 2018-112019-11-27 Martha assistance d 01-22 08:35:00 [place] required 10:30: 00 Medication inhalant Meds Resolve 2018-112019-11-27 Martha med d 01-22 08:35:00 [place] assistance 10:30: required 00 Elimination urinary Eliminatio Resolve 2018-112019-11-24 Radha incontinenc n d 08:45:00 [place] e 08:45: RN 00 Nutrition nutritional Nutrition Active 2018-11 Georges restriction guille Ray 13:15: PT 00 [id number] Safety risk for Safety Unknown 2018-11 Georges [facility] flor Ray 13:15: PT 00 788327-5 Pain frequent Pain Mgmt Active Radha pain [...] Clinician codeine Base Active Unknown Reaction 2019-03 [place] Ingredient Quan Medications Ordered Filled Start Stop [...] Jander Unknown Unknown 17 % 17 % Cinhtia ELLISON topical gel topical gel mirtazapine mirtazapine [...] Yes Jander Unknown Unknown concentrate concentrate -15 MD,Cinhtia 100 mg/5 mL 100 mg/5 mL (20 mg/mL) (20 mg/mL) oral oral solution solution predniSONE predniSONE 2019- Yes Jander Unknown Unknown 10 mg 10 mg -16 MD,Cinthia tablet tablet primidone primidone Yes Alva Unknown Unknown 250 mg 250 mg -15 [...]
--- OUTSIDE RECORDS SUMMARY | 2019-12-30 09:05 | XMS REPORT ---
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 (current) (current) [...] urinary urinary RN (tract) (tract) infections infections 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 Radha (current) (current) [place] use of use of RN non-steroid non-steroid al al anti-inflam anti-inflam matories matories (NSAID) (NSAID) Dependence Dependence Diagnosis Active Radha on on [place] wheelchair wheelchair RN Personal Personal Diagnosis Active Radha history of history of [place] irradiation irradiation RN Pain frequent Pain Mgmt Resolve 2018-112019-10-13 Freida pain d 12-02 10:23:00 [place] 10:30: [id number] 00 Respiratory dyspnea Respirator Active 2018-11 Freida present 12-02 [place] 10:30: [id number] 00 Respiratory oxygen Respirator Active 2018-11 Freida treatments 12-02 [place] in home 10:30: [id number] 00 Respiratory knowledge/s Respirator Resolve 2018-112019-12-10 Freida kill y d 12-02 08:30:00 [place] deficit: pt 10:30: [id number] 00 Respiratory knowledge/s Respirator Resolve 2018-112019-12-10 Freida kill y d 12-02 08:30:00 [place] deficit: cg 10:30: [id number] 00 Respiratory lung sounds Respirator Resolve 2018-112019-12-10 Freida deficit y d 12-02 08:30:00 [place] 10:30: [id number] 00 Respiratory smoker Respirator Resolve 2018-112019-11-21 Freida y d 12-02 10:30:00 [place] 10:30: [id number] 00 Respiratory nebulizer Respirator Active 2018-11 Freida treatment y 12-02 [place] in home 10:30: [id number] 00 Endo/Benjamin anti-coagul Endo/Benjamin Resolve 2018-112019-10-06 Freida ation d 12-02 13:19:00 [place] therapy 10:30: [id number] 00 Sensory impaired Sensory Active 2018-11 Freida hearing 12-02 [place] 10:30: [id number] 00 Integument skin Integument Resolve 2018-112019-10-08 Freida integrity d 12-02 14:40:00 [place] risk 10:30: [id number] 00 Nutrition nutritional Nutrition Resolve 2018-112019-10-13 Freida restriction d 12-02 10:23:00 [place] s 10:30: [id number] 00 Elimination urinary Eliminatio Resolve 2018-112019-10-06 Freida incontinenc n d 12-02 13:19:00 [place] e 10:30: [id number] 00 Neuro confusion Neuro/Emot Active 2018-11 Freida present ion 12-02 [place] 10:30: [id number] 00 Neuro anxiety Neuro/Emot Active 2018-11 Freida present ion 12-02 [place] 10:30: [id number] 00 Neuro depressive Neuro/Emot Active 2018-11 Freida feelings ion 12-02 [place] present 10:30: [id number] 00 Neuro impaired Neuro/Emot Active 2018-11 Freida decision-ma ion 12-02 [place] claritza 10:30: [id number] 00 Activity ADL Activity Active 2018-11 Freida assistance 12-02 [place] required 10:30: [id number] 00 Activity self-care Activity Resolve 2018-112019-10-06 Freida deficit d 12-02 13:19:00 [place] 10:30: [id number] 00 Safety cannot be Safety Active 2018-11 Freida left alone 12-02 [place] 10:30: [id number] 00 Safety knowledge/s Safety Resolve 2018-112019-10-16 Freida kill d 12-02 14:28:00 [place] deficit: pt 10:30: [id number] 00 Safety fall risk Safety Resolve 2018-112019-10-10 Freida factor d 12-02 14:55:00 [place] present 10:30: [id number] 00 Safety risk for Safety Resolve 2018-112019-10-10 Freida hospitaliza d 12-02 14:55:00 Serena tion 10:30: [id number] 00 Medication oral med Meds Resolve 2018-112019-10-13 Freida assistance d 12-02 10:23:00 [place] required 10:30: [id number] 00 Musculoskel transfer Musculoske Resolve 2018-112019-10-13 Freida etal assistance letal d 12-02 10:23:00 Serena required 10:30: [id number] 00 Musculoskel requires Musculoske Resolve 2018-112019-10-13 Freida etal human letal d 12-02 10:23:00 Serena assist to 10:30: [id number] leave home 00 Cardio edema Cardiovasc Resolve 2018-112019-11-11 Radha ular d 12-10 12:38:00 [place] 14:55: RN 00 Safety risk for Safety Resolve 2018-112019-10-16 Radha hospitaliza d 12-13 14:28:00 [place] tion 10:23: RN 00 Medication oral med Meds Resolve 2018-112019-11-17 Radha assistance d 12-16 08:35:00 [place] required 14:28: RN 00 Safety knowledge/s Safety Resolve 2018-112019-11-14 Evelyn kill d 12-17 08:30:00 [place] deficit: pt 10:00: [id number] 00 Safety risk for Safety Resolve 2018-112019-10-31 Evelyn hospitaliza d 12-17 14:05:00 [place] tion 10:00: [id number] 00 Social knowledge/s RUSLAN: Active 2018-11 Evelyn Services kill Social 12-17 [place] deficit - Services 10:00: [id number] pt 00 Safety can be left Safety Active 2018-11 Shanelle pool for 12-22 Ernestina only short 12:04: [id number] periods 00 Safety fire risk Safety Resolve [...] 14:05:00 [place] present 14:05: RN 00 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 PT/OT: Active 2018-11 Georges urance rdination Balance/En 01-01 Cory, deficit durance 15:00: PT 00 [id number] Gait/Locomo gait PT/OT: Active 2018-11 Georges tion deficit Gait/Locom 01-01 Cory, problems otion 15:00: PT 00 [id number] Elimination urinary Eliminatio Resolve 2018-112019-11-03 Radha incontinenc [...] hospitaliza d 2- 08:30:00 [place] tion 08:30: [id number] 00 Elimination urinary Eliminatio Resolve 2018-112019-11-21 Radha incontinenc n d 01-18 10:30:00 [place] e 08:35: RN 00 Safety risk for Safety Resolve 2018-112019-11-17 Radha hospitaliza d 01-18 08:35:00 [place] tion 08:35: RN 00 Safety risk for Safety Resolve 2018-112019-11-24 Georges hospitaliza d 01-21 08:45:00 [place] Ray 09:15: PT 00 [id number] Medication oral med Meds Resolve 2018-112019-11-27 Martha assistance d 01-22 08:35:00 [place] required 10:30: 00 Medication inhalant Meds Resolve 2018-112019-11-27 Martha med d 01-22 08:35:00 [place] assistance 10:30: required 00 Elimination urinary Eliminatio Resolve 2018-112019-11-24 Radha incontinenc n d 08:45:00 [place] e 08:45: RN 00 Nutrition nutritional Nutrition Active 2018-11 Georges restriction guille Ray 13:15: PT 00 [id number] Safety risk for Safety Unknown 2018-11 Georges [facility] flor Ray 13:15: PT 00 418196-9 Pain frequent Pain Mgmt Active Radha pain [...] Clinician codeine Base Active Unknown Reaction 2019-03 [place] Ingredient 08 Quan Medications Ordered Filled Start [...]
--- OUTSIDE RECORDS SUMMARY | 2019-12-30 09:05 | XMS REPORT ---
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 Radha (current) (current) [place] use of use of RN non-steroid non-steroid al al anti-inflam anti-inflam matories matories (NSAID) (NSAID) Dependence Dependence Diagnosis Active Radha on on [place] wheelchair wheelchair RN Personal Personal Diagnosis Active Radha history of history of [place] irradiation irradiation RN Pain frequent Pain Mgmt Resolve 2018-112019-10-13 Freida pain d 12-02 10:23:00 [place] 10:30: [id number] 00 Respiratory dyspnea Respirator Active 2018-11 Freida present 12-02 [place] 10:30: [id number] 00 Respiratory oxygen Respirator Active 2018-11 Freida treatments 12-02 [place] in home 10:30: [id number] 00 Respiratory knowledge/s Respirator Resolve 2018-112019-12-10 Freida kill y d 12-02 08:30:00 [place] deficit: pt 10:30: [id number] 00 Respiratory knowledge/s Respirator Resolve 2018-112019-12-10 Freida kill y d 12-02 08:30:00 [place] deficit: cg 10:30: [id number] 00 Respiratory lung sounds Respirator Resolve 2018-112019-12-10 Freida deficit y d 12-02 08:30:00 [place] 10:30: [id number] 00 Respiratory smoker Respirator Resolve 2018-112019-11-21 Freida y d 12-02 10:30:00 [place] 10:30: [id number] 00 Respiratory nebulizer Respirator Active 2018-11 Freida treatment y 12-02 [place] in home 10:30: [id number] 00 Endo/Benjamin anti-coagul Endo/Benjamin Resolve 2018-112019-10-06 Freida ation d 12-02 13:19:00 [place] therapy 10:30: [id number] 00 Sensory impaired Sensory Active 2018-11 Freida hearing 12-02 [place] 10:30: [id number] 00 Integument skin Integument Resolve 2018-112019-10-08 Freida integrity d 12-02 14:40:00 [place] risk 10:30: [id number] 00 Nutrition nutritional Nutrition Resolve 2018-112019-10-13 Freida restriction d 12-02 10:23:00 [place] s 10:30: [id number] 00 Elimination urinary Eliminatio Resolve 2018-112019-10-06 Freida incontinenc n d 12-02 13:19:00 [place] e 10:30: [id number] 00 Neuro confusion Neuro/Emot Active 2018-11 Freida present ion 12-02 [place] 10:30: [id number] 00 Neuro anxiety Neuro/Emot Active 2018-11 Freida present ion 12-02 [place] 10:30: [id number] 00 Neuro depressive Neuro/Emot Active 2018-11 Freida feelings ion 12-02 [place] present 10:30: [id number] 00 Neuro impaired Neuro/Emot Active 2018-11 Freida decision-ma ion 12-02 [place] claritza 10:30: [id number] 00 Activity ADL Activity Active 2018-11 Freida assistance 12-02 [place] required 10:30: [id number] 00 Activity self-care Activity Resolve 2018-112019-10-06 Freida deficit d 12-02 13:19:00 [place] 10:30: [id number] 00 Safety cannot be Safety Active 2018-11 Freida left alone 12-02 [place] 10:30: [id number] 00 Safety knowledge/s Safety Resolve 2018-112019-10-16 Freida kill d 12-02 14:28:00 [place] deficit: pt 10:30: [id number] 00 Safety fall risk Safety Resolve 2018-112019-10-10 Freida factor d 12-02 14:55:00 [place] present 10:30: [id number] 00 Safety risk for Safety Resolve 2018-112019-10-10 Freida hospitaliza d 12-02 14:55:00 Serena tion 10:30: [id number] 00 Medication oral med Meds Resolve 2018-112019-10-13 Freida assistance d 12-02 10:23:00 [place] required 10:30: [id number] 00 Musculoskel transfer Musculoske Resolve 2018-112019-10-13 Freida etal assistance letal d 12-02 10:23:00 Serena required 10:30: [id number] 00 Musculoskel requires Musculoske Resolve 2018-112019-10-13 Freida etal human letal d 12-02 10:23:00 Serena assist to 10:30: [id number] leave home 00 Cardio edema Cardiovasc Resolve 2018-112019-11-11 Radha ular d 12-10 12:38:00 [place] 14:55: RN 00 Safety risk for Safety Resolve 2018-112019-10-16 Radha hospitaliza d 12-13 14:28:00 [place] tion 10:23: RN 00 Medication oral med Meds Resolve 2018-112019-11-17 Radha assistance d 12-16 08:35:00 [place] required 14:28: RN 00 Safety knowledge/s Safety Resolve 2018-112019-11-14 Evelyn kill d 12-17 08:30:00 [place] deficit: pt 10:00: [id number] 00 Safety risk for Safety Resolve 2018-112019-10-31 Evelyn hospitaliza d 12-17 14:05:00 [place] tion 10:00: [id number] 00 Social knowledge/s RUSLAN: Active 2018-11 Evelyn Services kill Social 12-17 [place] deficit - Services 10:00: [id number] pt 00 Safety can be left Safety Active 2018-11 Shanelle pool for 12-22 Ernestina only short 12:04: [id number] periods 00 Safety fire risk Safety Resolve [...] 14:05:00 [place] present 14:05: RN 00 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/OT: Active 2018-11 Georges urance rdination Balance/En 01-01 Cory, deficit durance 15:00: PT 00 [id number] Gait/Locomo gait PT/OT: Active 2018-11 Georges tion deficit Gait/Locom 01-01 Cory, problems otion 15:00: PT 00 [id number] Elimination urinary Eliminatio Resolve 2018-112019-11-03 Radha incontinenc [...] hospitaliza d 2- 08:30:00 [place] tion 08:30: [id number] 00 Elimination urinary Eliminatio Resolve 2018-112019-11-21 Radha incontinenc n d 01-18 10:30:00 [place] e 08:35: RN 00 Safety risk for Safety Resolve 2018-112019-11-17 Radha hospitaliza d 01-18 08:35:00 [place] tion 08:35: RN 00 Safety risk for Safety Resolve 2018-112019-11-24 Georges hospitaliza d 01-21 08:45:00 [place] Ray 09:15: PT 00 [id number] Medication oral med Meds Resolve 2018-112019-11-27 Martha assistance d 01-22 08:35:00 [place] required 10:30: 00 Medication inhalant Meds Resolve 2018-112019-11-27 Martha med d 01-22 08:35:00 [place] assistance 10:30: required 00 Elimination urinary Eliminatio Resolve 2018-112019-11-24 Radha incontinenc n d 08:45:00 [place] e 08:45: RN 00 Nutrition nutritional Nutrition Active 2018-11 Georges restriction guille Ray 13:15: PT 00 [id number] Safety risk for Safety Unknown 2018-11 Georges [facility] flor Ray 13:15: PT 00 [id number] Pain frequent Pain Mgmt Active Radha pain 11-27 [place] 08:35: RN 00 Respiratory smoker Respirator Resolve 2019-12-10 Radha y d 11-27 08:30:00 [place] 08:35: RN 00 Endo/Benjamin anti-coagul Endo/Benjamin Active Radha ation 11-27 [place] therapy 08:35: RN 00 Integument skin Integument Active Radha integrity 11-27 [place] risk 08:35: RN 00 Elimination urinary Eliminatio Resolve 2019-11-27 Rahda incontinenc n d 11-27 08:35:00 [place] e [...] Clinician codeine Base Active Unknown Reaction 2019-03 [place] Ingredient Quan Medications Ordered Filled Start Stop [...] -16 MD,Cinthia tablet tablet primidone primidone Yes Mobile Unknown Unknown 250 mg 250 mg -15 [...]
--- OUTSIDE RECORDS SUMMARY | 2019-12-30 09:05 | XMS REPORT ---
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 Radha (current) (current) [place] use of use of RN non-steroid non-steroid al al anti-inflam anti-inflam matories matories (NSAID) (NSAID) Dependence Dependence Diagnosis Active Radha on on [place] wheelchair wheelchair RN Personal Personal Diagnosis Active Radha history of history of [place] irradiation irradiation RN Pain frequent Pain Mgmt Resolve 2018-112019-10-13 Freida pain d 12-02 10:23:00 [place] 10:30: [id number] 00 Respiratory dyspnea Respirator Active 2018-11 Freida present 12-02 [place] 10:30: [id number] 00 Respiratory oxygen Respirator Active 2018-11 Freida treatments 12-02 [place] in home 10:30: [id number] 00 Respiratory knowledge/s Respirator Resolve 2018-112019-12-10 Freida kill y d 12-02 08:30:00 [place] deficit: pt 10:30: [id number] 00 Respiratory knowledge/s Respirator Resolve 2018-112019-12-10 Freida kill y d 12-02 08:30:00 [place] deficit: cg 10:30: [id number] 00 Respiratory lung sounds Respirator Resolve 2018-112019-12-10 Freida deficit y d 12-02 08:30:00 [place] 10:30: [id number] 00 Respiratory smoker Respirator Resolve 2018-112019-11-21 Freida y d 12-02 10:30:00 [place] 10:30: [id number] 00 Respiratory nebulizer Respirator Active 2018-11 Freida treatment y 12-02 [place] in home 10:30: [id number] 00 Endo/Benjamin anti-coagul Endo/Benjamin Resolve 2018-112019-10-06 Freida ation d 12-02 13:19:00 [place] therapy 10:30: [id number] 00 Sensory impaired Sensory Active 2018-11 Freida hearing 12-02 [place] 10:30: [id number] 00 Integument skin Integument Resolve 2018-112019-10-08 Freida integrity d 12-02 14:40:00 [place] risk 10:30: [id number] 00 Nutrition nutritional Nutrition Resolve 2018-112019-10-13 Freida restriction d 12-02 10:23:00 [place] s 10:30: [id number] 00 Elimination urinary Eliminatio Resolve 2018-112019-10-06 Freida incontinenc n d 12-02 13:19:00 [place] e 10:30: [id number] 00 Neuro confusion Neuro/Emot Active 2018-11 Freida present ion 12-02 [place] 10:30: [id number] 00 Neuro anxiety Neuro/Emot Active 2018-11 Freida present ion 12-02 [place] 10:30: [id number] 00 Neuro depressive Neuro/Emot Active 2018-11 Freida feelings ion 12-02 [place] present 10:30: [id number] 00 Neuro impaired Neuro/Emot Active 2018-11 Freida decision-ma ion 12-02 [place] claritza 10:30: [id number] 00 Activity ADL Activity Active 2018-11 Freida assistance 12-02 [place] required 10:30: [id number] 00 Activity self-care Activity Resolve 2018-112019-10-06 Freida deficit d 12-02 13:19:00 [place] 10:30: [id number] 00 Safety cannot be Safety Active 2018-11 Freida left alone 12-02 [place] 10:30: [id number] 00 Safety knowledge/s Safety Resolve 2018-112019-10-16 Freida kill d 12-02 14:28:00 [place] deficit: pt 10:30: [id number] 00 Safety fall risk Safety Resolve 2018-112019-10-10 Freida factor d 12-02 14:55:00 [place] present 10:30: [id number] 00 Safety risk for Safety Resolve 2018-112019-10-10 Freida hospitaliza d 12-02 14:55:00 Serena tion 10:30: [id number] 00 Medication oral med Meds Resolve 2018-112019-10-13 Freida assistance d 12-02 10:23:00 [place] required 10:30: [id number] 00 Musculoskel transfer Musculoske Resolve 2018-112019-10-13 Freida etal assistance letal d 12-02 10:23:00 Serena required 10:30: [id number] 00 Musculoskel requires Musculoske Resolve 2018-112019-10-13 Freida etal human letal d 12-02 10:23:00 Serena assist to 10:30: [id number] leave home 00 Cardio edema Cardiovasc Resolve 2018-112019-11-11 Radha ular d 12-10 12:38:00 [place] 14:55: RN 00 Safety risk for Safety Resolve 2018-112019-10-16 Radha hospitaliza d 12-13 14:28:00 [place] tion 10:23: RN 00 Medication oral med Meds Resolve 2018-112019-11-17 Radha assistance d 12-16 08:35:00 [place] required 14:28: RN 00 Safety knowledge/s Safety Resolve 2018-112019-11-14 Evelyn kill d 12-17 08:30:00 [place] deficit: pt 10:00: [id number] 00 Safety risk for Safety Resolve 2018-112019-10-31 Evelyn hospitaliza d 12-17 14:05:00 [place] tion 10:00: [id number] 00 Social knowledge/s RUSLAN: Active 2018-11 Evelyn Services kill Social 12-17 [place] deficit - Services 10:00: [id number] pt 00 Safety can be left Safety Active 2018-11 Shanelle pool for 12-22 Ernestina only short 12:04: [id number] periods 00 Safety fire risk Safety Resolve [...] 14:05:00 [place] present 14:05: RN 00 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 PT/OT: Active 2018-11 Georges urance rdination Balance/En 01-01 Cory, deficit durance 15:00: PT 00 [id number] Gait/Locomo gait PT/OT: Active 2018-11 Georges tion deficit Gait/Locom 01-01 Cory, problems otion 15:00: PT 00 [id number] Elimination urinary Eliminatio Resolve 2018-112019-11-03 Radha incontinenc [...] hospitaliza d 2- 08:30:00 [place] tion 08:30: [id number] 00 Elimination urinary Eliminatio Resolve 2018-112019-11-21 Radha incontinenc n d 01-18 10:30:00 [place] e 08:35: RN 00 Safety risk for Safety Resolve 2018-112019-11-17 Radha hospitaliza d 01-18 08:35:00 [place] tion 08:35: RN 00 Safety risk for Safety Resolve 2018-112019-11-24 Georges hospitaliza d 01-21 08:45:00 [place] Ray 09:15: PT 00 [id number] Medication oral med Meds Resolve 2018-112019-11-27 Martha assistance d 01-22 08:35:00 [place] required 10:30: 00 Medication inhalant Meds Resolve 2018-112019-11-27 Martha med d 01-22 08:35:00 [place] assistance 10:30: required 00 Elimination urinary Eliminatio Resolve 2018-112019-11-24 Radha incontinenc n d 08:45:00 [place] e 08:45: RN 00 Nutrition nutritional Nutrition Active 2018-11 Georges restriction guille Ray 13:15: PT 00 [id number] Safety risk for Safety Unknown 2018-11 Georges [facility] flor Ray 13:15: PT 00 [id number] Pain frequent Pain Mgmt Active Radha pain [...] Clinician codeine Base Active Unknown Reaction 2019-03 [place] Ingredient 08 Quan Medications Ordered Filled Start [...] Yes Jander Unknown Unknown Extra Extra 01-22 MD,Icnthia Strength Strength 500 mg 500 mg tablet [...]
--- OUTSIDE RECORDS SUMMARY | 2019-12-30 09:05 | XMS REPORT ---
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 (current) (current) [place] use of use of RN non-steroid non-steroid al al anti-inflam anti-inflam matories matories (NSAID) (NSAID) Dependence Dependence Diagnosis Active Radha on on [place] wheelchair wheelchair RN Personal Personal Diagnosis Active Radha history of history of [place] irradiation irradiation RN Pain frequent Pain Mgmt Resolve 2018-112019-10-13 Freida pain d 12-02 10:23:00 [place] 10:30: [id number] 00 Respiratory dyspnea Respirator Active 2018-11 Freida present 12-02 [place] 10:30: [id number] 00 Respiratory oxygen Respirator Active 2018-11 Freida treatments 12-02 [place] in home 10:30: [id number] 00 Respiratory knowledge/s Respirator Resolve 2018-112019-12-10 Freida kill y d 12-02 08:30:00 [place] deficit: pt 10:30: [id number] 00 Respiratory knowledge/s Respirator Resolve 2018-112019-12-10 Freida kill y d 12-02 08:30:00 [place] deficit: cg 10:30: [id number] 00 Respiratory lung sounds Respirator Resolve 2018-112019-12-10 Freida deficit y d 12-02 08:30:00 [place] 10:30: [id number] 00 Respiratory smoker Respirator Resolve 2018-112019-11-21 Freida y d 12-02 10:30:00 [place] 10:30: [id number] 00 Respiratory nebulizer Respirator Active 2018-11 Freida treatment y 12-02 [place] in home 10:30: [id number] 00 Endo/Benjamin anti-coagul Endo/Benjamin Resolve 2018-112019-10-06 Freida ation d 12-02 13:19:00 [place] therapy 10:30: [id number] 00 Sensory impaired Sensory Active 2018-11 Freida hearing 12-02 [place] 10:30: [id number] 00 Integument skin Integument Resolve 2018-112019-10-08 Freida integrity d 12-02 14:40:00 [place] risk 10:30: [id number] 00 Nutrition nutritional Nutrition Resolve 2018-112019-10-13 Freida restriction d 12-02 10:23:00 [place] s 10:30: [id number] 00 Elimination urinary Eliminatio Resolve 2018-112019-10-06 Freida incontinenc n d 12-02 13:19:00 [place] e 10:30: [id number] 00 Neuro confusion Neuro/Emot Active 2018-11 Freida present ion 12-02 [place] 10:30: [id number] 00 Neuro anxiety Neuro/Emot Active 2018-11 Freida present ion 12-02 [place] 10:30: [id number] 00 Neuro depressive Neuro/Emot Active 2018-11 Freida feelings ion 12-02 [place] present 10:30: [id number] 00 Neuro impaired Neuro/Emot Active 2018-11 Freida decision-ma ion 12-02 [place] claritza 10:30: [id number] 00 Activity ADL Activity Active 2018-11 Freida assistance 12-02 [place] required 10:30: [id number] 00 Activity self-care Activity Resolve 2018-112019-10-06 Freida deficit d 12-02 13:19:00 [place] 10:30: [id number] 00 Safety cannot be Safety Active 2018-11 Freida left alone 12-02 [place] 10:30: [id number] 00 Safety knowledge/s Safety Resolve 2018-112019-10-16 Freida kill d 12-02 14:28:00 [place] deficit: pt 10:30: [id number] 00 Safety fall risk Safety Resolve 2018-112019-10-10 Freida factor d 12-02 14:55:00 [place] present 10:30: [id number] 00 Safety risk for Safety Resolve 2018-112019-10-10 Freida hospitaliza d 12-02 14:55:00 Serena tion 10:30: [id number] 00 Medication oral med Meds Resolve 2018-112019-10-13 Freida assistance d 12-02 10:23:00 [place] required 10:30: [id number] 00 Musculoskel transfer Musculoske Resolve 2018-112019-10-13 Freida etal assistance letal d 12-02 10:23:00 Serena required 10:30: [id number] 00 Musculoskel requires Musculoske Resolve 2018-112019-10-13 Freida etal human letal d 12-02 10:23:00 Serena assist to 10:30: [id number] leave home 00 Cardio edema Cardiovasc Resolve 2018-112019-11-11 Radha ular d 12-10 12:38:00 [place] 14:55: RN 00 Safety risk for Safety Resolve 2018-112019-10-16 Radha hospitaliza d 12-13 14:28:00 [place] tion 10:23: RN 00 Medication oral med Meds Resolve 2018-112019-11-17 Radha assistance d 12-16 08:35:00 [place] required 14:28: RN 00 Safety knowledge/s Safety Resolve 2018-112019-11-14 Evelyn kill d 12-17 08:30:00 [place] deficit: pt 10:00: [id number] 00 Safety risk for Safety Resolve 2018-112019-10-31 Evelyn hospitaliza d 12-17 14:05:00 [place] tion 10:00: [id number] 00 Social knowledge/s RUSLAN: Active 2018-11 Evelyn Services kill Social 12-17 [place] deficit - Services 10:00: [id number] pt 00 Safety can be left Safety Active 2018-11 Shanelle pool for 12-22 Ernestina only short 12:04: [id number] periods 00 Safety fire risk Safety Resolve [...] 14:05:00 [place] present 14:05: RN 00 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/OT: Active 2018-11 Georges urance rdination Balance/En 01-01 Cory, deficit durance 15:00: PT 00 808367-3 Gait/Locomo gait PT/OT: Active 2018-11 Georges tion deficit Gait/Locom 01-01 Cory, problems otion 15:00: PT 00 906769-9 Elimination urinary Eliminatio Resolve 2018-112019-11-03 Radha incontinenc [...] hospitaliza d 2- 08:30:00 [place] tion 08:30: [id number] 00 Elimination urinary Eliminatio Resolve 2018-112019-11-21 Radha incontinenc n d 01-18 10:30:00 [place] e 08:35: RN 00 Safety risk for Safety Resolve 2018-112019-11-17 Radha hospitaliza d 01-18 08:35:00 [place] tion 08:35: RN 00 Safety risk for Safety Resolve 2018-112019-11-24 Georges hospitaliza d 01-21 08:45:00 [place] Ray 09:15: PT 00 [id number] Medication oral med Meds Resolve 2018-112019-11-27 Martha assistance d 01-22 08:35:00 [place] required 10:30: 00 Medication inhalant Meds Resolve 2018-112019-11-27 Martha med d 01-22 08:35:00 [place] assistance 10:30: required 00 Elimination urinary Eliminatio Resolve 2018-112019-11-24 Radha incontinenc n d 08:45:00 [place] e 08:45: RN 00 Nutrition nutritional Nutrition Active 2018-11 Georges restriction guille Ray 13:15: PT 00 435659-7 Safety risk for Safety Unknown 2018-11 Georges [facility] flor Ray 13:15: PT 00 499168-6 Pain frequent Pain Mgmt Active Radha pain [...] Clinician codeine Base Active Unknown Reaction 2019-03 [place] Ingredient 08 Quan Medications Ordered Filled Start [...]
--- OUTSIDE RECORDS SUMMARY | 2019-12-30 09:06 | XMS REPORT ---
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 [...] supplementa RN l oxygen l oxygen [employer] terminology Diagnosis Active [...] urinary urinary RN (tract) (tract) infections infections [employer] terminology [employer] terminology Diagnosis Active Radha (current) (current) [place] use of use of RN non-steroid non-steroid al al anti-inflam anti-inflam matories matories (NSAID) (NSAID) Dependence Dependence Diagnosis Active Radha on on [place] wheelchair wheelchair RN Personal Personal Diagnosis Active Radha history of history of [place] irradiation irradiation RN Pain frequent Pain Mgmt Resolve 2018-112019-10-13 Freida pain d 12-02 10:23:00 Dig[place] 10:30: [id number] 00 Respiratory dyspnea Respirator Active 2018-11 Freida present 12-02 Dig[place] 10:30: [id number] 00 Respiratory oxygen Respirator Active 2018-11 Freida treatments 12-02 Diggs in home 10:30: [id number] 00 Respiratory knowledge/s Respirator Resolve 2018-112019-12-10 Freida kill y d 12-02 08:30:00 Diggs deficit: pt 10:30: [id number] 00 Respiratory knowledge/s Respirator Resolve 2018-112019-12-10 Freida kill y d 12-02 08:30:00 Diggs deficit: cg 10:30: [id number] 00 Respiratory lung sounds Respirator Resolve 2018-112019-12-10 Freida deficit y d 12-02 08:30:00 Diggs 10:30: [id number] 00 Respiratory smoker Respirator Resolve 2018-112019-11-21 Freida y d 12-02 10:30:00 Diggs 10:30: [id number] 00 Respiratory nebulizer Respirator Active 2018-11 Freida treatment y 12-02 Diggs in home 10:30: [id number] 00 Endo/Benjamin anti-coagul Endo/Benjamin Resolve 2018-112019-10-06 Freida ation d 12-02 13:19:00 Diggs therapy 10:30: [id number] 00 Sensory impaired Sensory Active 2018-11 Freida hearing 12-02 Diggs 10:30: [id number] 00 Integument skin Integument Resolve 2018-112019-10-08 Freida integrity d 12-02 14:40:00 Diggs risk 10:30: [id number] 00 Nutrition nutritional Nutrition Resolve 2018-112019-10-13 Freida restriction d 12-02 10:23:00 Diggs s 10:30: [id number] 00 Elimination urinary Eliminatio Resolve 2018-112019-10-06 Freida incontinenc n d 12-02 13:19:00 Diggs e 10:30: [id number] 00 Neuro confusion Neuro/Emot Active 2018-11 Freida present ion 12-02 Diggs 10:30: [id number] 00 Neuro anxiety Neuro/Emot Active 2018-11 Freida present ion 12-02 Diggs 10:30: [id number] 00 Neuro depressive Neuro/Emot Active 2018-11 Freida feelings ion 12-02 Diggs present 10:30: [id number] 00 Neuro impaired Neuro/Emot Active 2018-11 Freida decision-ma ion 12-02 Diggs claritza 10:30: [id number] 00 Activity ADL Activity Active 2018-11 Freida assistance 12-02 Diggs required 10:30: [id number] 00 Activity self-care Activity Resolve 2018-112019-10-06 Freida deficit d 12-02 13:19:00 Diggs 10:30: [id number] 00 Safety cannot be Safety Active 2018-11 Freida left alone 12-02 Diggs 10:30: [id number] 00 Safety knowledge/s Safety Resolve 2018-112019-10-16 Freida kill d 12-02 14:28:00 Diggs deficit: pt 10:30: [id number] 00 Safety fall risk Safety Resolve 2018-112019-10-10 Freida factor d 12-02 14:55:00 Diggs present 10:30: [id number] 00 Safety risk for Safety Resolve 2018-112019-10-10 Freida hospitaliza d 12-02 14:55:00 Serena tion 10:30: [id number] 00 Medication oral med Meds Resolve 2018-112019-10-13 Freida assistance d 12-02 10:23:00 Diggs required 10:30: [id number] 00 Musculoskel transfer Musculoske Resolve 2018-112019-10-13 Freida etal assistance letal d 12-02 10:23:00 Serena required 10:30: [id number] 00 Musculoskel requires Musculoske Resolve 2018-112019-10-13 Freida etal human letal d 12-02 10:23:00 Serena assist to 10:30: [id number] leave home 00 Cardio edema Cardiovasc Resolve 2018-112019-11-11 Radha ular d 12-10 12:38:00 [place] 14:55: RN 00 Safety risk for Safety Resolve 2018-112019-10-16 Radha hospitaliza d 12-13 14:28:00 [place] tion 10:23: RN 00 Medication oral med Meds Resolve 2018-112019-11-17 Radha assistance d 12-16 08:35:00 [place] required 14:28: RN 00 Safety knowledge/s Safety Resolve 2018-112019-11-14 Evelyn kill d 12-17 08:30:00 [place] deficit: pt 10:00: [id number] 00 Safety risk for Safety Resolve 2018-112019-10-31 Evelyn hospitaliza d 12-17 14:05:00 [place] tion 10:00: [id number] 00 Social knowledge/s RUSLAN: Active 2018-11 Evelyn Services kill Social 12-17 [place]unstein deficit - Services 10:00: [id number] pt 00 Safety can be left Safety Active 2018-11 Shanelle pool for 12-22 Ernestina only short 12:04: [id number] periods 00 Safety fire risk Safety Resolve [...] [place] present 14:05: RN 00 Balance/End 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/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 PT/OT: Active 2018-11 Georges urance rdination Balance/En 01-01 Cory, deficit durance 15:00: PT 00 [id number] Gait/Locomo gait PT/OT: Active 2018-11 Georges tion deficit Gait/Locom 01-01 Cory, problems otion 15:00: PT 00 [id number] Elimination urinary Eliminatio Resolve 2018-112019-11-03 Radha incontinenc [...] hospitaliza d 2- 08:30:00 Traunstein tion 08:30: [id number] 00 Elimination urinary Eliminatio Resolve 2018-112019-11-21 Radha incontinenc n d 01-18 10:30:00 [place] e 08:35: RN 00 Safety risk for Safety Resolve 2018-112019-11-17 Radha hospitaliza d 01-18 08:35:00 [place] tion 08:35: RN 00 Safety risk for Safety Resolve 2018-112019-11-24 Georges hospitaliza d 01-21 08:45:00 flor Ray 09:15: PT 00 [id number] Medication oral med Meds Resolve 2018-112019-11-27 Martha assistance d 01-22 08:35:00 Vallely required 10:30: 00 Medication inhalant Meds Resolve 2018-112019-11-27 Martha med d 01-22 08:35:00 Vallely assistance 10:30: required 00 Elimination urinary Eliminatio Resolve 2018-112019-11-24 Radha incontinenc n d 08:45:00 [place] e 08:45: RN 00 Nutrition nutritional Nutrition Active 2018-11 Georges restriction guille Ray 13:15: PT 00 [id number] Safety risk for Safety Unknown 2018-11 Georges [facility] flor Ray 13:15: PT 00 [id number] Pain frequent Pain Mgmt Active Radha pain [...] Clinician codeine Base Active Unknown Reaction 2019-03 [place] Ingredient Quan Medications Ordered Filled Start Stop [...] Unknown Unknown 250 mg 250 mg 12-02 ,Cinthai tablet tablet Aspirin Low Aspirin Low 2018-11 [...]
--- OUTSIDE RECORDS SUMMARY | 2019-12-30 09:06 | XMS REPORT | Continuity of Care Document ---
:1945 External Reference #:[id number] Author Name Joe Blackman M.D. 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 Problems Description No Information Available Social History Type Date Description Comments Sex Unknown ETOH Use Denies alcohol use Tobacco Use Start: Unknown Patient is a current since the age of 14 smoker, smokes every day Recreational Drug Use Denies Drug Use Tobacco Use Start: Unknown Heavy tobacco smoker (more than 10 cigarettes/day) Smoking Status Reviewed: 12/08/19 Heavy tobacco smoker (more than 10 cigarettes/day) Exercise Type/Frequency Exercises regularly Exercise Type/Frequency Exercises regularly Physical Therapy Allergies, Adverse Reactions, Alerts Active Allergies Reaction Severity Comments Date Codeine 04/07/2019 Medications Active Medications SIG Qnty Indications Ordering Provider Date Detrol LA 1 by mouth per day Joe Blackman, 12/08/2019 4mg Caps ER M.D. 24HR Fluoxetine HCL (PMDD) 1 po q am 2 po q pm Unknown 20mg Capsules Amlodipine Besylate 1 by mouth every Unknown day 10mg Tablets Aspirin 81 1 by mouth every Unknown 81mg Tablets day Primjamel take one tab by Unknown 250mg Tablets mouth at bedtime. Myrbetriq 1 by mouth every Unknown 50mg Tablets day ER 24HR Incruse Ellipta inhale one puff by Unknown mouth every day 62.5mcg/Inh Aerosol Serevent Diskus 1 inhalation twice Unknown daily 50mcg/Dose Aerosol Proair HFA 2 puffs every 4 Unknown 108(90Base) hours as needed mcg/Act Aerosol Atorvastatin Calcium 1 by mouth every Unknown day 20mg Tablets Mucinex 1 by mouth twice a Unknown 600mg Tablets day ER 12HR Vitamin B12 Pt takes 2500 mcg Unknown 1000mcg dailly Tablets ER Losartan Potassium 1 by mouth every Unknown day 100mg Tablets Colace 1 tab po qd Unknown 100mg Capsules Mirtazapine one by mouth at Unknown 15mg bedtime Tablets Omeprazole 1 by mouth every Unknown 20mg day Capsules DR Mcmahon Description No Information Available Vital Signs Date Vital Result Comment 12/08/2019 1:06pm Height 60 inches 5'0" Weight 170.00 lb Heart Rate 78 /min BP Systolic Sitting 130 mmHg BP Diastolic Sitting 76 mmHg Respiratory Rate 18 /min BMI (Body Mass Index) 33.2 kg/m2 04/29/2019 11:40am Height 60 inches 5'0" Weight 128.00 lb w/shoes Heart Rate 78 /min BP Systolic 150 mmHg Rue reg cuff BP Diastolic 80 mmHg Rue reg cuff BP Systolic Sitting 158 mmHg Lue reg cuff BP Diastolic Sitting 88 mmHg Lue reg cuff Respiratory Rate 16 /min BMI (Body Mass Index) 25.0 kg/m2 Results Test Acquired Date Facility Test Result H/L Range Note Laboratory test 10/26/2019 [facility] Troponin- 0.05 ng/mL Critical high <0.03 [address] [place] ([place]nI) [place] [address] [phone] 1 Result TnIDx:0.05 Called to [id number] at: 19:29:06 by:[id number] Read back by: [id number] Troponin-I testing on Plasma Separator Tubes (PST) has a known false positive rate of 0.20-0.40%. All positive troponins reflex immediately to secondary confirmatory testing. Using the [employer] Mobile Dx4Less 800 Access Immunoassay systems, the 99th percentile upper reference limit was demonstrated to be < 0.03 ng/mL. Procedures Date Code Description Status 09/22/2019 22839 Treadmill Interp/Report Only Completed 09/22/2019 95591 Stress Test Supervsn W/Out I/R Completed 09/21/2019 03497 ECHO Transthorasic Realtime 2D W Doppler & Color Flow Hosp Completed 09/21/2019 73320 EKG, Interpretation Only Completed Medical Devices Description No Information Available Encounters Type Date Location Provider Dx Diagnosis Office Visit 12/03/2019 [facility] Anualexi Baldwinulx, J96.21 Acute and chronic 9:01a Assoc,pc [employer] respiratory Hospitalists failure with hypoxia J10.1 Flu due to oth ident influenza virus w oth resp manifest J44.1 Chronic obstructive pulmonary disease w (acute) exacerbation I10 Essential (primary) hypertension 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 Office Visit 12/02/2019 8:59a Palliative Care Tracy J44.9 Chronic Services Of Marisol Mcclure MD obstructive pulmonary disease, unspecified 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 Office Visit 12/01/2019 [facility] Yvonne A41.9 Sepsis, 8:58a Assoc,pc Christina, [employer] unspecified Hospitalists organism J96.21 Acute and chronic respiratory failure with hypoxia J11.1 Flu due to unidentified influenza virus w oth resp manifest 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 Office Visit 10/30/2019 [facility] Russell J18.9 Pneumonia, 9:15a Assoc,pc Christina, [employer] unspecified Hospitalists organism A41.9 Sepsis, unspecified organism D47.3 Essential (hemorrhagic) thrombocythemia J44.1 Chronic obstructive pulmonary disease w (acute) exacerbation R79.89 Other specified abnormal findings of blood chemistry 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 S82.892A Oth fracture of left lower leg, init for clos fx Office Visit 10/29/2019 [facility] Yvonne J18.9 Pneumonia, 9:14a Assoc,pc Christina, [employer] unspecified Hospitalists organism A41.9 Sepsis, unspecified organism J44.1 Chronic obstructive pulmonary disease w (acute) exacerbation I10 Essential (primary) hypertension 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 Office Visit 10/28/2019 9:14a [facility] Anu Anya, J18.9 Pneumonia, Assoc,pc [employer] unspecified Hospitalists organism A41.9 Sepsis, unspecified organism J44.1 Chronic obstructive pulmonary disease w (acute) exacerbation D47.3 Essential (hemorrhagic) thrombocythemia Office Visit 10/27/2019 9:13a [facility] Anu Anya, J18.9 Pneumonia, Assoc,pc [employer] unspecified Hospitalists organism J44.1 Chronic obstructive pulmonary disease w (acute) exacerbation A41.9 Sepsis, unspecified organism I10 Essential (primary) hypertension 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 breath Hospitalists R79.89 Other specified abnormal findings of blood chemistry D47.3 Essential (hemorrhagic) thrombocythemia I10 Essential (primary) hypertension Office Visit 09/22/2019 8:57a [facility] Marleen J18.9 Pneumonia, Assoc,pc BAN Tan unspecified Hospitalists organism J44.0 Chr obstructive pulmon disease with (acute) lower resp infct I24.8 Other forms of acute ischemic heart disease R79.89 Other specified abnormal findings of blood chemistry W19.xxxA Unspecified fall, initial encounter Office Visit 09/21/2019 1:18p [facility] Florence Portillo, I21.4 Non- St elevation Of New Product Trainer M.D. 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 abnormal Hospitalists findings of blood chemistry I10 Essential (primary) hypertension W19.xxxA Unspecified fall, initial encounter Office Visit 09/20/2019 1:29p [facility] Florence Portillo, I21.4 Non- St elevation Of New Product Trainer M.D. 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 Office Visit 08/29/2019 10:19a [facility] Halima J44.0 Chr obstructive Assoc,pc Sher Cruz pulmon disease Hospitalists with (acute) lower resp infct R33.9 Retention of urine, unspecified G12.21 Amyotrophic lateral sclerosis Office Visit 08/28/2019 11:04a Pulmonology And May J40 Bronchitis, not Sleep Services Of MD Jose A specified as acute New Product Trainer or chronic J44.1 Chronic obstructive pulmonary disease w (acute) exacerbation R09.02 Hypoxemia Office Visit 08/28/2019 10:19a [facility] Halima J44.0 Chr obstructive Assoc,pc Sher rCuz 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 lateral sclerosis I10 Essential (primary) hypertension Office Visit 08/27/2019 10:18a [facility] Keyanna J44.0 [facility] obstructive Assoc,power Peng DO pulmon disease Hospitalists with (acute) lower resp infct J40 Bronchitis, not specified as acute or chronic R33.9 Retention of urine, unspecified R53.81 Other malaise Office Visit 08/27/2019 10:37a Pulmonology And May J44.1 Chronic Sleep Services Of MD Jose A obstructive New Product Trainer pulmonary disease w (acute) exacerbation J96.21 Acute and chronic respiratory failure with hypoxia Office Visit 08/26/2019 10:17a [facility] Elodia J44.0 Chr obstructive Assoc,power Rehman M.D. pulmon disease Hospitalists with (acute) lower resp infct J40 Bronchitis, not specified as acute or chronic G12.21 Amyotrophic lateral sclerosis Office Visit 08/25/2019 10:15a [facility] Elodia J44.0 [facility] obstructive Assoc,power Rehman M.D. pulmon disease Hospitalists with (acute) lower resp infct J40 Bronchitis, not specified as acute or chronic G12.21 Amyotrophic lateral sclerosis Office Visit 08/24/2019 10:14a [facility] Johann Vincent J44.1 Chronic Assoc,power ELLISON obstructive Hospitalists pulmonary disease w (acute) exacerbation R06.02 Shortness of breath R25.2 Cramp and spasm Office Visit 06/14/2019 9:27a [facility] Urvashi Spencer, A41.9 Sepsis, Assoc,pc N.P. 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 Anu Anya, [employer]PER[employer]OR 12/02/2019 A41.9 Sepsis, unspecified organism Anu Anya, [employer]PER[employer]OR 12/02/2019 J44.9 Chronic obstructive pulmonary Tracy Mcclure MD disease, unspecified 12/02/2019 J96.21 Acute and chronic respiratory failure Anu Anya, [employer]PER[employer]OR with hypoxia 12/02/2019 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 Tracy Mcclure MD 12/02/2019 J10.1 Influenza due to other identified Anu Anya, [employer]PER[employer]OR influenza virus with other respiratory manifestations 12/02/2019 I10 Essential (primary) hypertension Anu Anya, [employer]PER[employer]OR 12/01/2019 A41.9 Sepsis, unspecified organism Yvonne Vasquez, [employer] SUPERVISOR 12/01/2019 J96.21 Acute and chronic respiratory failure Yvonne Vasquez, [employer]PER[employer]OR with hypoxia 12/01/2019 J11.1 Influenza due to unidentified Yvonne Vasquez, [employer]PER[employer]OR influenza virus with other respiratory manifestations 12/01/2019 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 Yvonne Vasquez, [employer] SUPER[employer]OR 10/30/2019 J18.9 Pneumonia, unspecified organism Yvonne Vasquez, [employer] SUPERVISOR 10/30/2019 A41.9 Sepsis, unspecified organism Yvonne Vasquez, [employer]ING SUPERVISOR 10/30/2019 D47.3 Essential (hemorrhagic) Yvonne Vasquez, [employer] SUPERVISOR thrombocythemia 10/30/2019 J44.1 Chronic obstructive pulmonary disease Yvonne [place] [employer]PER[employer]OR with (acute) exacerbation 10/30/2019 R79.89 Other specified abnormal findings of Yvonne VasquezADITI blood chemistry 10/30/2019 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 Yvonne Vasquez, [employer] SUPERVISOR 10/30/2019 S82.892A Other fracture of left lower leg, Yvonne Vasquez NP initial encounter for closed fracture 10/29/2019 J18.9 Pneumonia, unspecified organism Yvonne Vasquez, [employer] SUPERVISOR 10/29/2019 A41.9 Sepsis, unspecified organism Yvonne Vasquez, [employer] SUPER[employer]OR 10/29/2019 J44.1 Chronic obstructive pulmonary disease Yvonne Vasquez, [employer]PER[employer]OR with (acute) exacerbation 10/29/2019 I10 Essential (primary) hypertension Yvonne Vasquez, [employer] SUPERVISOR 10/29/2019 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 Yvonne Vasquez, [employer] SUPERVISOR 10/28/2019 J18.9 Pneumonia, unspecified organism Anu Anya, [employer]ING SUPERVISOR 10/28/2019 A41.9 Sepsis, unspecified organism Anu Anya, [employer]ING SUPERVISOR 10/28/2019 J44.1 Chronic obstructive pulmonary disease Anu Anya, [employer] SUPERVISOR with (acute) exacerbation 10/28/2019 D47.3 Essential (hemorrhagic) Anu Anya, [employer] SUPERVISOR thrombocythemia 10/27/2019 J18.9 Pneumonia, unspecified organism Anu Anya, [employer]ING SUPERVISOR 10/27/2019 J44.1 Chronic obstructive pulmonary disease Anu Anya, [employer] SUPERVISOR with (acute) exacerbation 10/27/2019 A41.9 Sepsis, unspecified organism Anu Anya, [employer]ING SUPERVISOR 10/27/2019 I10 Essential (primary) hypertension Anu Anya, [employer]ING SUPERVISOR 10/27/2019 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 10/26/2019 R79.89 Other specified abnormal findings of Jaguar Reveles.Sarita blood chemistry 10/26/2019 D47.3 Essential (hemorrhagic) Jaguar Reveles.P. thrombocythemia 10/26/2019 I10 Essential (primary) hypertension Urvashi Spencer N.P. 09/22/2019 R94.31 Abnormal electrocardiogram [ECG] Richard Agrawal MD, FACC, [EKG] FSCAI 09/22/2019 J18.9 Pneumonia, unspecified organism Marleen Tan PA-C 09/22/2019 J44.0 Chronic obstructive pulmonary disease Marleen Tan PA-C with (acute) lower respiratory infection 09/22/2019 I24.8 Other forms of acute ischemic heart Marleen Tan PA-C disease 09/22/2019 R79.89 Other specified abnormal findings of Marleen Tan PA-C blood chemistry 09/22/2019 W19.xxxA Unspecified fall, initial encounter NBA Huntley 09/21/2019 R79.89 Other specified abnormal findings of John Luu, [facility] blood chemistry 09/21/2019 J44.1 Chronic obstructive pulmonary disease Randall English M.D. with (acute) exacerbation 09/21/2019 I21.4 Non-St elevation (Nstemi) myocardial Florence Portillo M.D. infarction 09/21/2019 I10 Essential (primary) hypertension Randall English M.D. 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 09/21/2019 R33.9 Retention of urine, unspecified Randall English M.D. 09/20/2019 R79.89 Other specified abnormal findings of Misti Prather M.D. blood chemistry 09/20/2019 I10 Essential (primary) hypertension Misti Prather M.D. 09/20/2019 W19.xxxA Unspecified fall, initial encounter Misti Prather M.D. 09/20/2019 I21.4 Non-St elevation (Nstemi) myocardial Florence Portillo M.D. infarction 09/20/2019 I25.10 Atherosclerotic heart disease of Florence Portillo M.D. [place]ana coronary artery without angina pectoris 08/29/2019 J44.0 Chronic obstructive pulmonary disease Halima Cruz D.O. with (acute) lower respiratory infection 08/29/2019 R33.9 Retention of urine, unspecified Halima Cruz, D.O. 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 08/28/2019 J40 Bronchitis, not specified as acute or May Naranjo MD chronic 08/28/2019 J44.1 Chronic obstructive pulmonary disease May Naranjo MD with (acute) exacerbation 08/28/2019 J44.0 Chronic obstructive pulmonary disease Halima Cruz D.O. with (acute) lower respiratory infection 08/28/2019 R09.02 Hypoxemia May Naranjo MD 08/28/2019 J40 Bronchitis, not specified as acute or Halima Cruz, D.O. chronic 08/28/2019 R33.9 Retention of urine, unspecified Halima Cruz D.O. 08/28/2019 G12.21 Amyotrophic lateral sclerosis Halima Cruz D.O. 08/28/2019 I10 Essential (primary) hypertension Halima Cruz D.O. 08/27/2019 J44.0 Chronic obstructive pulmonary disease Keyanna Peng DO with (acute) lower respiratory infection 08/27/2019 J40 Bronchitis, not specified as acute or Keyanna Peng, DO chronic 08/27/2019 J44.1 Chronic obstructive pulmonary disease May Naranjo MD with (acute) exacerbation 08/27/2019 R33.9 Retention of urine, unspecified Keyanna Peng, DO 08/27/2019 R53.81 Other malaise Keyanna Peng, DO 08/27/2019 J96.21 Acute and chronic respiratory failure May Naranjo MD with hypoxia 08/26/2019 J44.0 Chronic obstructive pulmonary disease Elodia Rehman M.D. with (acute) lower respiratory infection 08/26/2019 J40 Bronchitis, not specified as acute or Elodia Rehman M.D. chronic 08/26/2019 G12.21 Amyotrophic lateral sclerosis Elodia Rehman M.D. 08/25/2019 J44.0 Chronic obstructive pulmonary disease Elodia Rehman M.D. with (acute) lower respiratory infection 08/25/2019 J40 Bronchitis, not specified as acute or Elodia Rehman M.D. chronic 08/25/2019 G12.21 Amyotrophic lateral sclerosis Elodia Rehman M.D. 08/24/2019 J44.1 Chronic obstructive pulmonary disease Johann Vincent MD with (acute) exacerbation 08/24/2019 R06.02 Shortness of breath Johann Vincent MD 08/24/2019 R25.2 Cramp and spasm Johann Vincent MD 06/14/2019 A41.9 Sepsis, unspecified organism Urvashi Spencer, N.P. 06/14/2019 N39.0 Urinary tract infection, site not Urvashi Spencer, N.P. 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 06/14/2019 Z99.3 Dependence on wheelchair Urvashi Spencer, N.P. 06/13/2019 N39.0 Urinary tract infection, site not [facility], [employer] SUPER[employer]OR specified 06/13/2019 B96.20 Unsp Escherichia coli as the cause of [facility], [employer] SUPERVISOR [facility] 06/13/2019 J44.9 Chronic obstructive pulmonary [facility], [employer]PER[employer]OR disease, unspecified 06/13/2019 I10 Essential (primary) hypertension [facility], [employer] SUPER[employer]OR 06/12/2019 A41.9 Sepsis, unspecified organism Misti Prather M.D. 06/12/2019 N39.0 Urinary tract infection, site not Misti Prather M.D. specified 06/12/2019 E87.1 Hypo-osmolality and hyponatremia Misti Prather M.D. 06/12/2019 R53.2 Functional quadriplegia Misti Prather M.D. 06/12/2019 Z90.5 Acquired absence of kidney Misti Prather M.D. Plan of Treatment Future Appointment(s):04/14/2020 8:30 am - Joe Blackman M.D. at [facility]12/08/2019 - Joe Blackman M.D.G12.23 Primary lateral sclerosisFollow up:letter to Dr. Harris to increase baclofen pump dose by 5 % per day records from her Neurologist in [place], chiece has info last 6 months labs from PCP 3-4 monthsRecommendations:stop morning primidone and in 2 weeks decrease night time dose to 1/2 tablet for 2 weeks then stop primidone Functional Status Description No Information Available Mental Status Description No Information Available Referrals Description No Information Available
--- OUTSIDE RECORDS SUMMARY | 2019-12-30 09:06 | XMS REPORT ---
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 Radha (current) (current) [place] use of use of RN non-steroid non-steroid al al anti-inflam anti-inflam matories matories (NSAID) (NSAID) Dependence Dependence Diagnosis Active Radha on on [place] wheelchair wheelchair RN Personal Personal Diagnosis Active Radha history of history of [place] irradiation irradiation RN Pain frequent Pain Mgmt Resolve 2018-112019-10-13 Freida pain d 12-02 10:23:00 [place] 10:30: [id number] 00 Respiratory dyspnea Respirator Active 2018-11 Freida present 12-02 [place] 10:30: [id number] 00 Respiratory oxygen Respirator Active 2018-11 Freida treatments 12-02 [place] in home 10:30: [id number] 00 Respiratory knowledge/s Respirator Active 2018-11 Freida kill y 12-02 [place] deficit: pt 10:30: [id number] 00 Respiratory knowledge/s Respirator Active 2018-11 Freida kill y 12-02 [place] deficit: cg 10:30: [id number] 00 Respiratory lung sounds Respirator Active 2018-11 Freida deficit y 12-02 [place] 10:30: [id number] 00 Respiratory smoker Respirator Resolve 2018-112019-11-21 Freida y d 12-02 10:30:00 [place] 10:30: [id number] 00 Respiratory nebulizer Respirator Active 2018-11 Freida treatment y 12-02 [place] in home 10:30: [id number] 00 Endo/Benjamin anti-coagul Endo/Benjamin Resolve 2018-112019-10-06 Freida ation d 12-02 13:19:00 [place] therapy 10:30: [id number] 00 Sensory impaired Sensory Active 2018-11 Freida hearing 12-02 [place] 10:30: [id number] 00 Integument skin Integument Resolve 2018-112019-10-08 Freida integrity d 12-02 14:40:00 [place] risk 10:30: [id number] 00 Nutrition nutritional Nutrition Resolve 2018-112019-10-13 Freida restriction d 12-02 10:23:00 [place] s 10:30: [id number] 00 Elimination urinary Eliminatio Resolve 2018-112019-10-06 Freida incontinenc n d 12-02 13:19:00 [place] e 10:30: [id number] 00 Neuro confusion Neuro/Emot Active 2018-11 Freida present ion 12-02 [place] 10:30: [id number] 00 Neuro anxiety Neuro/Emot Active 2018-11 Freida present ion 12-02 [place] 10:30: [id number] 00 Neuro depressive Neuro/Emot Active 2018-11 Freida feelings ion 12-02 [place] present 10:30: [id number] 00 Neuro impaired Neuro/Emot Active 2018-11 Freida decision-ma ion 12-02 [place] claritza 10:30: [id number] 00 Activity ADL Activity Active 2018-11 Freida assistance 12-02 [place] required 10:30: [id number] 00 Activity self-care Activity Resolve 2018-112019-10-06 [place] deficit d 12-02 13:19:00 [place] 10:30: [id number] 00 Safety cannot be Safety Active 2018-11 Freida left alone 12-02 [place] 10:30: [id number] 00 Safety knowledge/s Safety Resolve 2018-112019-10-16 Fre[place] kill d 12-02 14:28:00 [place] deficit: pt 10:30: [id number] 00 Safety fall risk Safety Resolve 2018-112019-10-10 Freida factor d 12-02 14:55:00 [place] present 10:30: [id number] 00 Safety risk for Safety Resolve 2018-112019-10-10 Freida hospitaliza d 12-02 14:55:00 [place] tion 10:30: [id number] 00 Medication oral med Meds Resolve 2018-112019-10-13 [place] assistance d 12-02 10:23:00 [place] required 10:30: [id number] 00 Musculoskel transfer Musculoske Resolve 2018-112019-10-13 Freida etal assistance letal d 12-02 10:23:00 [place] required 10:30: [id number] 00 Musculoskel requires Musculoske Resolve 2018-112019-10-13 Freida etal human letal d 12-02 10:23:00 Serena assist to 10:30: [id number] leave home 00 Cardio edema Cardiovasc Resolve 2018-112019-11-11 Radha ular d 12-10 12:38:00 [place] 14:55: RN 00 Safety risk for Safety Resolve 2018-112019-10-16 Radha hospitaliza d 12-13 14:28:00 [place] tion 10:23: RN 00 Medication oral med Meds Resolve 2018-112019-11-17 Radha assistance d 12-16 08:35:00 [place] required 14:28: RN 00 Safety knowledge/s Safety Resolve 2018-112019-11-14 Evelyn kill d 12-17 08:30:00 [place] deficit: pt 10:00: [id number] 00 Safety risk for Safety Resolve 2018-112019-10-31 Evelyn hospitaliza d 12-17 14:05:00 [place] tion 10:00: [id number] 00 Social knowledge/s RUSLAN: Active 2018-11 Evelyn Services kill Social 12-17 [place] deficit - Services 10:00: [id number] pt 00 Safety can be left Safety Active 2018-11 Shanelle alone for 12-22 Ernestina only short 12:04: [id number] periods 00 Safety fire risk Safety Resolve [...] 14:05:00 [place] present 14:05: RN 00 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 PT/OT: Active 2018-11 Georges urance rdination Balance/En 01-01 Cory, deficit durance 15:00: PT 00 [id number] Gait/Locomo gait PT/OT: Active 2018-11 Georges tion deficit Gait/Locom 01-01 Cory, problems otion 15:00: PT 00 [id number] Elimination urinary Eliminatio Resolve 2018-112019-11-03 Radha incontinenc [...] hospitaliza d 2- 08:30:00 [place] tion 08:30: [id number] 00 Elimination urinary Eliminatio Resolve 2018-112019-11-21 Radha incontinenc n d - 10:30:00 [place] e 08:35: RN 00 Safety risk for Safety Resolve 2018-112019-11-17 Radha hospitaliza d 01-18 08:35:00 [place] tion 08:35: RN 00 Safety risk for Safety Resolve 2018-112019-11-24 Georges hospitaliza d 01-21 08:45:00 [place] Ray 09:15: PT 00 [id number] Medication oral med Meds Resolve 2018-112019-11-27 Martha assistance d 01-22 08:35:00 [place] required 10:30: 00 Medication inhalant Meds Resolve 2018-112019-11-27 Martha med d 01-22 08:35:00 [place] assistance 10:30: required 00 Elimination urinary Eliminatio Resolve 2018-112019-11-24 Radha incontinenc n d 08:45:00 [place] e 08:45: RN 00 Nutrition nutritional Nutrition Active 2018-11 Georges restriction Cory s 13:15: PT 00 [id number] Safety risk for Safety Unknown 2018-11 Georges hospitaliza dong [place] 13:15: PT 00 [id number] Pain frequent Pain Mgmt Active Radha pain [...] Clinician codeine Base Active Unknown Reaction 2019-03 [place] Ingredient Unknown -08 Quan Medications Ordered Filled [...]
--- OUTSIDE RECORDS SUMMARY | 2019-12-30 09:06 | XMS REPORT ---
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 (current) (current) [place] use of use of RN non-steroid non-steroid al al anti-inflam anti-inflam matories matories (NSAID) (NSAID) Dependence Dependence Diagnosis Active Radha on on [place] wheelchair wheelchair RN Personal Personal Diagnosis Active Radha history of history of [place] irradiation irradiation RN Pain frequent Pain Mgmt Resolve 2018-112019-10-13 Freida pain d 12-02 10:23:00 [place] 10:30: [id number] 00 Respiratory dyspnea Respirator Active 2018-11 Freida present 12-02 [place] 10:30: [id number] 00 Respiratory oxygen Respirator Active 2018-11 Freida treatments 12-02 [place] in home 10:30: [id number] 00 Respiratory knowledge/s Respirator Resolve 2018-112019-12-10 Freida kill y d 12-02 08:30:00 [place] deficit: pt 10:30: [id number] 00 Respiratory knowledge/s Respirator Resolve 2018-112019-12-10 Freida kill y d 12-02 08:30:00 [place] deficit: cg 10:30: [id number] 00 Respiratory lung sounds Respirator Resolve 2018-112019-12-10 Freida deficit y d 12-02 08:30:00 [place] 10:30: [id number] 00 Respiratory smoker Respirator Resolve 2018-112019-11-21 Freida y d 12-02 10:30:00 [place] 10:30: [id number] 00 Respiratory nebulizer Respirator Active 2018-11 Freida treatment y 12-02 [place] in home 10:30: [id number] 00 Endo/Benjamin anti-coagul Endo/Benjamin Resolve 2018-112019-10-06 Freida ation d 12-02 13:19:00 [place] therapy 10:30: [id number] 00 Sensory impaired Sensory Active 2018-11 Freida hearing 12-02 [place] 10:30: [id number] 00 Integument skin Integument Resolve 2018-112019-10-08 Freida integrity d 12-02 14:40:00 [place] risk 10:30: [id number] 00 Nutrition nutritional Nutrition Resolve 2018-112019-10-13 Freida restriction d 12-02 10:23:00 [place] s 10:30: [id number] 00 Elimination urinary Eliminatio Resolve 2018-112019-10-06 Freida incontinenc n d 12-02 13:19:00 [place] e 10:30: [id number] 00 Neuro confusion Neuro/Emot Active 2018-11 Freida present ion 12-02 [place] 10:30: [id number] 00 Neuro anxiety Neuro/Emot Active 2018-11 Freida present ion 12-02 [place] 10:30: [id number] 00 Neuro depressive Neuro/Emot Active 2018-11 Freida feelings ion 12-02 [place] present 10:30: [id number] 00 Neuro impaired Neuro/Emot Active 2018-11 Freida decision-ma ion 12-02 [place] claritza 10:30: [id number] 00 Activity ADL Activity Active 2018-11 Freida assistance 12-02 [place] required 10:30: [id number] 00 Activity self-care Activity Resolve 2018-112019-10-06 Freida deficit d 12-02 13:19:00 [place] 10:30: [id number] 00 Safety cannot be Safety Active 2018-11 Freida left alone 12-02 [place] 10:30: [id number] 00 Safety knowledge/s Safety Resolve 2018-112019-10-16 Freida kill d 12-02 14:28:00 [place] deficit: pt 10:30: [id number] 00 Safety fall risk Safety Resolve 2018-112019-10-10 Freida factor d 12-02 14:55:00 [place] present 10:30: [id number] 00 Safety risk for Safety Resolve 2018-112019-10-10 Freida hospitaliza d 12-02 14:55:00 Serena tion 10:30: [id number] 00 Medication oral med Meds Resolve 2018-112019-10-13 Freida assistance d 12-02 10:23:00 [place] required 10:30: [id number] 00 Musculoskel transfer Musculoske Resolve 2018-112019-10-13 Freida etal assistance letal d 12-02 10:23:00 Serena required 10:30: [id number] 00 Musculoskel requires Musculoske Resolve 2018-112019-10-13 Freida etal human letal d 12-02 10:23:00 Serena assist to 10:30: [id number] leave home 00 Cardio edema Cardiovasc Resolve 2018-112019-11-11 Radha ular d 12-10 12:38:00 [place] 14:55: RN 00 Safety risk for Safety Resolve 2018-112019-10-16 Radha hospitaliza d 12-13 14:28:00 [place] tion 10:23: RN 00 Medication oral med Meds Resolve 2018-112019-11-17 Radha assistance d 12-16 08:35:00 [place] required 14:28: RN 00 Safety knowledge/s Safety Resolve 2018-112019-11-14 Evelyn kill d 12-17 08:30:00 [place] deficit: pt 10:00: [id number] 00 Safety risk for Safety Resolve 2018-112019-10-31 Evelyn hospitaliza d 12-17 14:05:00 [place] tion 10:00: [id number] 00 Social knowledge/s RUSLAN: Active 2018-11 Evelyn Services kill Social 12-17 [place] deficit - Services 10:00: [id number] pt 00 Safety can be left Safety Active 2018-11 Shanelle pool for 12-22 Ernestina only short 12:04: [id number] periods 00 Safety fire risk Safety Resolve [...] 14:05:00 [place] present 14:05: RN 00 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 PT/OT: Active 2018-11 Georges urance rdination Balance/En 01-01 Cory, deficit durance 15:00: PT 00 [id number] Gait/Locomo gait PT/OT: Active 2018-11 Georges tion deficit Gait/Locom 01-01 Cory, problems otion 15:00: PT 00 [id number] Elimination urinary Eliminatio Resolve 2018-112019-11-03 Radha incontinenc [...] hospitaliza d 2- 08:30:00 [place] tion 08:30: [id number] 00 Elimination urinary Eliminatio Resolve 2018-112019-11-21 Radha incontinenc n d 01-18 10:30:00 [place] e 08:35: RN 00 Safety risk for Safety Resolve 2018-112019-11-17 Radha hospitaliza d 01-18 08:35:00 [place] tion 08:35: RN 00 Safety risk for Safety Resolve 2018-112019-11-24 Georges hospitaliza d 01-21 08:45:00 [place] Ray 09:15: PT 00 [id number] Medication oral med Meds Resolve 2018-112019-11-27 Martha assistance d 01-22 08:35:00 [place] required 10:30: 00 Medication inhalant Meds Resolve 2018-112019-11-27 Martha med d 01-22 08:35:00 [place] assistance 10:30: required 00 Elimination urinary Eliminatio Resolve 2018-112019-11-24 Radha incontinenc n d 08:45:00 [place] e 08:45: RN 00 Nutrition nutritional Nutrition Active 2018-11 Georges restriction guille Ray 13:15: PT 00 [id number] Safety risk for Safety Unknown 2018-11 Georges [facility] flor Ray 13:15: PT 00 [id number] Pain frequent Pain Mgmt Active Radha pain [...] 00 Safety risk for Safety Resolve 2019-12-10 Ardha hospitaliza d 12-10 08:30:00 [place] tion 08:30: RN 00 Allergies, Adverse Reactions, Alerts Allergy Allergy Type Status Severity Reaction(s) Onset Inactive Treating Comments Name Date Date Clinician codeine Base Active Unknown Reaction 2019-03 [place] Ingredient Quan Medications Ordered Filled Start Stop [...] Unknown Unknown Diskus 50 Diskus 50 12-02 MDCinthia mcg/dose mcg/dose powder for powder for inhalation inhalation Incruse Incruse 2018-11 Yes Jander Unknown Unknown Ellipta Ellipta 12-02 ,[place] 62.5 62.5 mcg/actuati mcg/actuati on powder on powder for for inhalation inhalation Detrol LA 4 Detrol LA 4 2018-11 Yes Jander Unknown Unknown mg mg - MD,[place] capsule,ext capsule,ext ended ended release release Myrbetriq Myrbetriq 2018-11 Yes Jander Unknown Unknown 50 mg 50 mg - MD,[place] tablet,exte tablet,exte nded nded release release [...] Yes Jander Unknown Unknown Extra Extra 01-22 ,[place] Strength Strength 500 mg 500 mg tablet tablet predniSONE predniSONE Yes Jander Unknown Unknown 10 mg 10 mg 12-04 MD,[place] tablet tablet benzonatate benzonatate Yes Jander Unknown Unknown 100 mg 100 mg 12-04 ,[place] capsule capsule Tamiflu 75 Tamiflu 75 2019- Yes Jander Unknown Unknown mg capsule mg capsule 12-04 ,[place] oxygen oxygen 2019- Yes Jander Unknown Unknown 12-04 ,[place] morphine morphine 2019- Yes Jander Unknown Unknown concentrate concentrate 12-10 ,[place] 100 mg/5 mL 100 mg/5 mL (20 mg/mL) (20 mg/mL) oral oral solution solution Vital Signs Vital Name Observation Time Observation Value Comments RESP RATE 2019-12-10 18:09:53 20 /min /min Procedures This patient has no known procedures. Results This patient has no known results.
--- OUTSIDE RECORDS SUMMARY | 2019-12-30 09:06 | XMS REPORT | Continuity of Care Document ---
:1945 External Reference #:[id number] Author Name Shaquille Guerrero M.D. 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 Problems Description No Information Available Social History Type Date Description Comments Sex Unknown ETOH Use Denies alcohol use Tobacco Use Start: Unknown Patient is a current since the age of 14 smoker, smokes every day Recreational Drug Use Denies Drug Use Tobacco Use Start: Unknown Heavy tobacco smoker (more than 10 cigarettes/day) Smoking Status Reviewed: 04/29/19 Heavy tobacco smoker (more than 10 cigarettes/day) Exercise Type/Frequency Exercises regularly Exercise Type/Frequency Exercises regularly Physical Therapy Allergies, Adverse Reactions, Alerts Active Allergies Reaction Severity Comments Date Codeine 04/07/2019 Medications Active Medications SIG Qnty Indications Ordering Provider Date Fluoxetine HCL (PMDD) 1 po q am 2 po q pm Unknown 20mg Capsules Amlodipine Besylate 1 by mouth every Unknown day 10mg Tablets Aspirin 81 1 by mouth every Unknown 81mg Tablets day Primidone take one tab by Unknown 250mg Tablets mouth at bedtime. Myrbetriq 1 by mouth every Unknown 50mg Tablets day ER 24HR Detrol LA daily Unknown 4mg Caps ER 24HR Incruse Ellipta inhale one puff [...] 1 tab po qd Unknown 100mg Capsules Immunizations Description No Information Available Vital Signs Date Vital Result Comment 04/29/2019 11:40am Height 60 inches 5'0" Weight [...] Result H/L Range Note Laboratory test 10/26/2019 [facility] Troponin- 0.05 ng/mL Critical high <0.03 [address] I (TnI) [place] [address] [phone] 1 Result TnIDx:0.05 Called to [id number] at: 19:29:06 by:[id number] Read back by: [id number] Troponin-I testing on Plasma Separator Tubes (PST) has a known false positive rate of 0.20-0.40%. All positive troponins reflex immediately to secondary confirmatory testing. Using the InhibOx DxI 800 Access Immunoassay systems, the 99th percentile upper reference limit was demonstrated to be < 0.03 ng/mL. Procedures Date Code Description Status 09/22/2019 92505 Treadmill Interp/Report Only Completed 09/22/2019 77319 Stress Test Supervsn W/Out I/R Completed 09/21/2019 79105 ECHO Transthorasic Realtime 2D W Doppler & Color Flow Hosp Completed 09/21/2019 25701 EKG, Interpretation Only Completed Medical Devices Description No Information Available Encounters Type Date Location Provider Dx Diagnosis Office Visit 10/30/[address] [facility] Yvonne J18.9 Pneumonia, 9:15a Assoc,pc Christina, A&P MECHANIC unspecified Hospitalists organism A41.9 Sepsis, unspecified organism D47.3 Essential (hemorrhagic) thrombocythemia J44.1 Chronic obstructive pulmonary disease w (acute) exacerbation R79.89 Other specified abnormal findings of blood chemistry 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 S82.892A Oth fracture of left lower leg, init for clos fx Office Visit 10/29/[address] [facility] Yvonne J18.9 Pneumonia, 9:14a Assoc,pc Christina, ADITI unspecified Hospitalists organism A41.9 Sepsis, unspecified organism J44.1 Chronic obstructive pulmonary disease w (acute) exacerbation I10 Essential (primary) hypertension 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 Office Visit 10/28/2019 9:14a [facility] Anu Anya, J18.9 Pneumonia, Assoc,pc A&P MECHANIC unspecified Hospitalists organism A41.9 Sepsis, unspecified organism J44.1 Chronic obstructive pulmonary disease w (acute) exacerbation D47.3 Essential (hemorrhagic) thrombocythemia Office Visit 10/27/2019 9:13a [facility] Anu Anya, J18.9 Pneumonia, Assoc,pc A&P MECHANIC unspecified Hospitalists organism J44.1 Chronic obstructive pulmonary disease w (acute) exacerbation A41.9 Sepsis, unspecified organism I10 Essential (primary) hypertension 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 breath Hospitalists R79.89 Other specified abnormal findings of blood chemistry D47.3 Essential (hemorrhagic) thrombocythemia I10 Essential (primary) hypertension Office Visit 09/22/2019 8:57a [facility] Marleen J18.9 Pneumonia, Assoc,pc BAN Tan unspecified Hospitalists organism J44.0 Chr obstructive pulmon disease with (acute) lower resp infct I24.8 Other forms of acute ischemic heart disease R79.89 Other specified abnormal findings of blood chemistry W19.xxxA Unspecified fall, initial encounter Office Visit 09/21/[address] [facility] Randall J44.1 Chronic 8:57a Assoc,pc Tiffany English obstructive Hospitalists pulmonary disease w (acute) exacerbation I10 Essential (primary) hypertension 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 (Nstemi) myocardial infarction I25.10 Athscl heart disease of [place] coronary artery w/o ang pctrs Office Visit 09/20/2019 8:56a [facility] Misti Prather, R79.89 Other specified Assoc,pc M.Rachel abnormal Hospitalists findings of blood chemistry I10 Essential (primary) hypertension W19.xxxA Unspecified fall, initial encounter Office Visit 09/20/2019 1:29p [facility] Florence Portillo, I21.4 Non- St elevation Of Venetian Blind Machine Operator M.D. (Nstemi) myocardial infarction I25.10 Athscl heart disease of [place] coronary artery w/o ang pctrs Office Visit 08/29/2019 10:19a [facility] Halima J44.0 Chr obstructive Assoc,pc Sher Cruz pulmon disease Hospitalists with (acute) lower resp infct R33.9 Retention of urine, unspecified G12.21 Amyotrophic lateral sclerosis Office Visit 08/28/2019 10:19a [facility] Halima J44.0 Chr obstructive Assoc,pc Tali Cruz.Kiana. 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 lateral sclerosis I10 Essential (primary) hypertension Office Visit 08/28/2019 11:04a Pulmonology And May J40 Bronchitis, not Sleep Services Of MD Jose A specified as acute Venetian Blind Machine Operator or chronic J44.1 Chronic obstructive pulmonary disease w (acute) exacerbation R09.02 Hypoxemia Office Visit 08/27/2019 10:18a [facility] Keyanna J44.0 Chr obstructive Assoc,pc DO Danish pulmon disease Hospitalists with (acute) lower resp infct J40 Bronchitis, not specified as acute or chronic R33.9 Retention of urine, unspecified R53.81 Other malaise Office Visit 08/27/2019 10:37a Pulmonology And May J44.1 Chronic Sleep Services Of MD Jose A obstructive Venetian Blind Machine Operator pulmonary disease w (acute) exacerbation J96.21 Acute and chronic respiratory failure with hypoxia Office Visit 08/26/2019 10:17a [facility] Elodia J44.0 Chr obstructive Assoc,power Rehman M.D. pulmon disease Hospitalists with (acute) lower resp infct J40 Bronchitis, not specified as acute or chronic G12.21 Amyotrophic lateral sclerosis Office Visit 08/25/2019 10:15a [facility] Elodia J44.0 Chr obstructive Assoc,power Rehman M.D. pulmon disease Hospitalists with (acute) lower resp infct J40 Bronchitis, not specified as acute or chronic G12.21 Amyotrophic lateral sclerosis Office Visit 08/24/2019 10:14a [facility] Johann Vincent J44.1 Chronic Assoc,power ELLISON obstructive Hospitalists pulmonary disease w (acute) exacerbation R06.02 Shortness of breath R25.2 Cramp and spasm Office Visit 06/14/2019 9:27a [facility] Urvashi Spencer A41.9 Sepsis, Assoc,power N.P. 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 unspecified Hospitalists organism N39.0 Urinary tract infection, site not specified E87.1 Hypo-osmolality and hyponatremia R53.2 Functional quadriplegia Z90.5 Acquired absence of kidney Assessments Date Code Description Provider 10/30/2019 J18.9 Pneumonia, unspecified organism Yvonne Vasquez, ADITI 10/30/2019 A41.9 Sepsis, unspecified organism Yvonne Vasquez NP 10/30/2019 D47.3 Essential (hemorrhagic) Yvonne Vasquez NP thrombocythemia 10/30/2019 J44.1 Chronic obstructive pulmonary disease Yvonne Vasquez NP with (acute) exacerbation 10/30/2019 R79.89 Other specified abnormal findings of Yvonne Vasquez NP blood chemistry 10/30/2019 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 Yvonne Vasquez NP 10/30/2019 S82.892A Other fracture of left lower leg, Yvonne Vasquez, A&P MECHANIC initial encounter for closed fracture 10/29/2019 J18.9 Pneumonia, unspecified organism Yvonne Vasquez, A&P MECHANIC 10/29/2019 A41.9 Sepsis, unspecified organism Yvonne Vasquez, A&P MECHANIC 10/29/2019 J44.1 Chronic obstructive pulmonary disease Yvonne Vasquez, A&P MECHANIC with (acute) exacerbation 10/29/2019 I10 Essential (primary) hypertension Yvonne Vasquez, A&P MECHANIC 10/29/2019 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 Yvonne Vasquez, A&P MECHANIC 10/28/2019 J18.9 Pneumonia, unspecified organism Anu Anya, A&P MECHANIC 10/28/2019 A41.9 Sepsis, unspecified organism Anu Anya, A&P MECHANIC 10/28/2019 J44.1 Chronic obstructive pulmonary disease Anu Anya, A&P MECHANIC with (acute) exacerbation 10/28/2019 D47.3 Essential (hemorrhagic) Anu Anya, A&P MECHANIC thrombocythemia 10/27/2019 J18.9 Pneumonia, unspecified organism Anu Anya, A&P MECHANIC 10/27/2019 J44.1 Chronic obstructive pulmonary disease Anu Anya, A&P MECHANIC with (acute) exacerbation 10/27/2019 A41.9 Sepsis, unspecified organism Anu Anya, A&P MECHANIC 10/27/2019 I10 Essential (primary) hypertension Nau Anya, A&P MECHANIC 10/27/2019 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 10/26/2019 R79.89 Other specified abnormal findings of Urvashi Spencer N.P. blood chemistry 10/26/2019 D47.3 Essential (hemorrhagic) Urvashi Spencer N.P. thrombocythemia 10/26/2019 I10 Essential (primary) hypertension Urvashi Spencer, N.P. 09/22/2019 R94.31 Abnormal electrocardiogram [ECG] Richard Agrawal MD, FACC, [EKG] FSCAI 09/22/2019 J18.9 Pneumonia, unspecified organism Marleen Tan, PA-C 09/22/2019 J44.0 Chronic obstructive pulmonary disease Marleen Tan PA-C with (acute) lower respiratory infection 09/22/2019 I24.8 Other forms of acute ischemic heart Marleen Tan PA-C disease 09/22/2019 R79.89 Other specified abnormal findings of Marleen Tan PA-C blood chemistry 09/22/2019 W19.xxxA Unspecified fall, initial encounter NBA Huntley 09/21/2019 R79.89 Other specified abnormal findings of John Luu [facility] blood chemistry 09/21/2019 J44.1 Chronic obstructive pulmonary disease Randall English M.D. with (acute) exacerbation 09/21/2019 I21.4 Non-St elevation (Nstemi) myocardial Florence Portillo M.D. infarction 09/21/2019 I10 Essential (primary) hypertension Randall English M.D. 09/21/2019 I25.10 Atherosclerotic heart disease of Florence Portillo M.D. [place] coronary artery without angina pectoris 09/21/2019 G12.23 [...] Atherosclerotic heart disease of Florence Portillo M.D. [place] coronary artery without angina pectoris 08/29/2019 J44.0 Chronic obstructive pulmonary disease Halima Cruz D.O. with (acute) lower respiratory infection 08/29/2019 R33.9 Retention of urine, unspecified Tali Gongora.O. 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 08/28/2019 J40 Bronchitis, not specified as acute or May Naranjo MD chronic 08/28/2019 J44.1 Chronic obstructive pulmonary disease May Naranjo MD with (acute) exacerbation 08/28/2019 J44.0 Chronic obstructive pulmonary disease Rachel GongoraO. with (acute) lower respiratory infection 08/28/2019 R09.02 Hypoxemia May Naranjo MD 08/28/2019 J40 Bronchitis, not specified as acute or Tali Gongora.O. chronic 08/28/2019 R33.9 Retention of urine, unspecified Tali Gongora.O. 08/28/2019 G12.21 Amyotrophic lateral sclerosis Tali Gongora.O. 08/28/2019 I10 Essential (primary) hypertension Rachel GongoraO. 08/27/2019 J44.0 Chronic obstructive pulmonary disease Keyanna Peng, with (acute) lower respiratory infection 08/27/2019 J40 Bronchitis, not specified as acute or Keyanna Danish, DO chronic 08/27/2019 J44.1 Chronic obstructive pulmonary [...] 06/13/2019 N39.0 Urinary tract infection, site not Yoana Jimy, A&P MECHANIC specified 06/13/2019 B96.20 Unsp Escherichia coli as the cause of [facility] Short, A&P MECHANIC diseases [facility] 06/13/2019 J44.9 Chronic obstructive pulmonary [facility], A&P MECHANIC disease, unspecified 06/13/2019 I10 Essential (primary) hypertension Yoana Thomas A&P MECHANIC 06/12/2019 A41.9 Sepsis, unspecified organism Misti Prather M.D. 06/12/2019 N39.0 Urinary tract infection, site not Misti Prather M.D. specified 06/12/2019 E87.1 Hypo-osmolality and hyponatremia Misti Prather M.D. 06/12/2019 R53.2 Functional quadriplegia Misti Prather M.D. 06/12/2019 Z90.5 Acquired absence of kidney Misti Prather M.D. Plan of Treatment Future Appointment(s):12/08/2019 1:00 pm - Joe Blackman M.D. at [facility]04/29/2019 - John Luu, FACCI25.10 Atherosclerotic heart disease of [place] coronary artery withFollow up:1 yearF17.210 Nicotine dependence, cigarettes, [id number] Essential (primary ) [id number] Acquired absence of kidney Functional Status Description No Information Available Mental Status Description No Information Available Referrals Description No Information Available
--- OUTSIDE RECORDS SUMMARY | 2019-12-30 09:06 | XMS REPORT ---
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 Diagnosis Active Radha (current) [...] Resolve 2018-112019-10-13 Freida pain d 12-02 10:23:00 Sumrall 10:30: [id number] Respiratory dyspnea Respirator Active 2018-11 Freida present 12-02 Sumrall 10:30: [id number] 00 Respiratory oxygen Respirator Active 2018-11 Freida treatments 12-02 Sumrall in home 10:30: [id number] 00 Respiratory knowledge/s Respirator Active 2018-11 Freida kill y 12-02 Sum[place]all deficit: pt 10:30: [id number] 00 Respiratory knowledge/s Respirator Active 2018-11 Freida kill y 12-02 Sum[place]all deficit: cg 10:30: [id number] 00 Respiratory lung sounds Respirator Active 2018-11 Freida deficit y 12-02 Sumrall 10:30: [id number] 00 Respiratory smoker Respirator Resolve 2018-112019-11-21 Freida y d 12-02 10:30:00 Sumrall 10:30: [id number] 00 Respiratory nebulizer Respirator Active 2018-11 Freida treatment y 12-02 Sumrall in home 10:30: [id number] 00 Endo/Benjamin anti-coagul Endo/Benjamin Resolve 2018-112019-10-06 Freida ation d 12-02 13:19:00 Sumrall therapy 10:30: [id number] 00 Sensory impaired Sensory Active 2018-11 Freida hearing 12-02 Sumrall 10:30: [id number] 00 Integument skin Integument Resolve 2018-112019-10-08 Freida integrity d 12-02 14:40:00 Sumrall risk 10:30: [id number] 00 Nutrition nutritional Nutrition Resolve 2018-112019-10-13 Freida restriction d 12-02 10:23:00 Sumrall s 10:30: [id number] 00 Elimination urinary Eliminatio Resolve 2018-112019-10-06 Freida incontinenc n d 12-02 13:19:00 Sumrall e 10:30: [id number] 00 Neuro confusion Neuro/Emot Active 2018-11 Freida present ion 12-02 Sumrall 10:30: [id number] 00 Neuro anxiety Neuro/Emot Active 2018-11 Freida present ion 12-02 Sumrall 10:30: [id number] 00 Neuro depressive Neuro/Emot Active 2018-11 Freida feelings ion 12-02 Sumrall present 10:30: [id number] 00 Neuro impaired Neuro/Emot Active 2018-11 Freida decision-ma ion 12-02 Sumrall claritza 10:30: [id number] 00 Activity ADL Activity Active 2018-11 Freida assistance 12-02 Sumrall required 10:30: [id number] 00 Activity self-care Activity Resolve 2018-112019-10-06 Freida deficit d 12-02 13:19:00 Sumrall 10:30: [id number] 00 Safety cannot be Safety Active 2018-11 Freida left alone 12-02 Sumrall 10:30: [id number] 00 Safety knowledge/s Safety Resolve 2018-112019-10-16 Freida kill d 12-02 14:28:00 Sumrall deficit: pt 10:30: [id number] 00 Safety fall risk Safety Resolve 2018-112019-10-10 Freida factor d 12-02 14:55:00 Sumrall present 10:30: [id number] 00 Safety risk for Safety Resolve 2018-112019-10-10 Freida hospitaliza d 12-02 14:55:00 Sumrall tion 10:30: [id number] 00 Medication oral med Meds Resolve 2018-112019-10-13 Freida assistance d 12-02 10:23:00 Sumrall required 10:30: [id number] 00 Musculoskel transfer Musculoske Resolve 2018-112019-10-13 Freida etal assistance letal d 12-02 10:23:00 Serena required 10:30: [id number] 00 Musculoskel requires Musculoske Resolve 2018-112019-10-13 Freida etal human letal d 12-02 10:23:00 Serena assist to 10:30: [id number] leave home 00 Cardio edema Cardiovasc Resolve 2018-112019-11-11 Radha ular d 12-10 12:38:00 Malnoske 14:55: RN 00 Safety risk for Safety Resolve 2018-112019-10-16 Radha hospitaliza d 12-13 14:28:00 Malnoske tion 10:23: RN 00 Medication oral med Meds Resolve 2018-112019-11-17 Radha assistance d 12-16 08:35:00 Malnoske required 14:28: RN 00 Safety knowledge/s Safety Resolve 2018-112019-11-14 Evelyn kill d 12-17 08:30:00 Traunstein deficit: pt 10:00: [id number] 00 Safety risk for Safety Resolve 2018-112019-10-31 Evelyn hospitaliza d 12-17 14:05:00 Traunstein tion 10:00: [id number] 00 Social knowledge/s RUSLAN: Active 2018-11 Evelyn Services kill Social 12-17 Traunstein deficit - Services 10:00: [id number] pt 00 Safety can be left Safety Active 2018-11 Shanelle alone for 12-22 Ernestina only short 12:04: [id number] periods 00 Safety fire risk Safety Resolve [...] Malnoske present 14:05: RN 00 Balance/End balance/patient appointment coordinator PT/OT: Active 2018-11 Georges urance rdination Balance/En 01-01 Cory, deficit durance 15:00: PT 00 [id number] Gait/Locomo gait PT/OT: Active 2018-11 Georges tion deficit Gait/Locom 01-01 Cory, problems otion 15:00: PT 00 [id number] Elimination urinary Eliminatio Resolve 2018-112019-11-03 Radha incontinenc [...] hospitaliza d 2- 08:30:00 Traunstein tion 08:30: [id number] 00 Elimination urinary Eliminatio Resolve 2018-112019-11-21 Radha incontinenc n d - 10:30:00 Malnoske e 08:35: RN 00 Safety risk for Safety Resolve 2018-112019-11-17 Radha hospitaliza d 01-18 08:35:00 Malnoske tion 08:35: RN 00 Safety risk for Safety Resolve 2018-112019-11-24 Georges hospitaliza d 01-21 08:45:00 flor Ray 09:15: PT 00 [id number] Medication oral med Meds Resolve 2018-112019-11-27 Martha assistance d 2 08:35:00 Vallely required 10:30: 00 Medication inhalant Meds Resolve 2018-112019-11-27 Martha med d 01-22 08:35:00 Vallely assistance 10:30: required 00 Elimination urinary Eliminatio Resolve 2018-112019-11-24 Radha incontinenc n d 08:45:00 Malnoske e 08:45: RN 00 Nutrition nutritional Nutrition Active 2018-11 Georges restriction Cory, guille 13:15: PT 00 [id number] Safety risk for Safety Unknown 2018-11 Georges hospitaliza flor Ray 13:15: PT 00 [id number] Pain frequent Pain Mgmt Active Radha pain [...] 12-04 08:45:00 Malnoske e 08:45: RN 00 Allergies, Adverse Reactions, Alerts Allergy Allergy Type Status Severity Reaction(s) Onset Inactive Treating Comments Name Date Date Clinician codeine Base Active Unknown Reaction 2019-03 [place] Ingredient Quan Medications Ordered Filled Start [...] Unknown Unknown 10 mg 10 mg 12-02 MD,Cinthia tablet tablet losartan losartan 2018-11 Yes Jander Unknown Unknown 100 mg 100 mg - ,Cinthia tablet tablet cyanocobala cyanocobala 2018-11 Yes [...] ,Cinthia capsule capsule Tamiflu 75 Tamiflu 75 Yes Jander Unknown Unknown mg capsule mg capsule 12-04 ,Cinthia oxygen oxygen Yes Jander Unknown Unknown 12-04 MD,Cinthia Vital Signs Vital Name Observation Time Observation Value Comments SYSTOLIC mm[Hg] 2019-12-04 18:09:47 146 mm[Hg] mm[Hg] Method: Sit DIASTOLIC mm[Hg] 2019-12-04 18:09:47 84 mm[Hg] mm[Hg] Method: Sit PULSE 2019-12-04 18:09:47 71 /min /min RESP RATE 2019-12-04 18:09:47 22 /min /min TEMP 2019-12-04 18:09:47 97.2 [degF] Procedures This patient has no known procedures. Results This patient has no known results.
--- OUTSIDE RECORDS SUMMARY | 2019-12-30 09:06 | XMS REPORT ---
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 Radha (current) (current) [place] use of use of RN non-steroid non-steroid al al anti-inflam anti-inflam matories matories (NSAID) (NSAID) Dependence Dependence Diagnosis Active Radha on on [place] wheelchair wheelchair RN Personal Personal Diagnosis Active Radha history of history of [place] irradiation irradiation RN Pain frequent Pain Mgmt Resolve 2018-112019-10-13 Freida pain d 12-02 10:23:00 [place] 10:30: [id number] 00 Respiratory dyspnea Respirator Active 2018-11 Freida present 12-02 [place] 10:30: [id number] 00 Respiratory oxygen Respirator Active 2018-11 Freida treatments 12-02 [place] in home 10:30: [id number] 00 Respiratory knowledge/s Respirator Active 2018-11 Freida kill y 12-02 [place] deficit: pt 10:30: [id number] 00 Respiratory knowledge/s Respirator Active 2018-11 Freida kill y 12-02 [place] deficit: cg 10:30: [id number] 00 Respiratory lung sounds Respirator Active 2018-11 Freida deficit y 12-02 [place] 10:30: [id number] 00 Respiratory smoker Respirator Resolve 2018-112019-11-21 Freida y d 12-02 10:30:00 [place] 10:30: [id number] 00 Respiratory nebulizer Respirator Active 2018-11 Freida treatment y 12-02 [place] in home 10:30: [id number] 00 Endo/Benjamin anti-coagul Endo/Benjamin Resolve 2018-112019-10-06 Freida ation d 12-02 13:19:00 [place] therapy 10:30: [id number] 00 Sensory impaired Sensory Active 2018-11 Freida hearing 12-02 [place] 10:30: [id number] 00 Integument skin Integument Resolve 2018-112019-10-08 Freida integrity d 12-02 14:40:00 [place] risk 10:30: [id number] 00 Nutrition nutritional Nutrition Resolve 2018-112019-10-13 Freida restriction d 12-02 10:23:00 [place] s 10:30: [id number] 00 Elimination urinary Eliminatio Resolve 2018-112019-10-06 Freida incontinenc n d 12-02 13:19:00 [place] e 10:30: [id number] 00 Neuro confusion Neuro/Emot Active 2018-11 Freida present ion 12-02 [place] 10:30: [id number] 00 Neuro anxiety Neuro/Emot Active 2018-11 Freida present ion 12-02 [place] 10:30: [id number] 00 Neuro depressive Neuro/Emot Active 2018-11 Freida feelings ion 12-02 [place] present 10:30: [id number] 00 Neuro impaired Neuro/Emot Active 2018-11 Freida decision-ma ion 12-02 [place] claritza 10:30: [id number] 00 Activity ADL Activity Active 2018-11 Freida assistance 12-02 [place] required 10:30: [id number] 00 Activity self-care Activity Resolve 2018-112019-10-06 Fre[place] deficit d 12-02 13:19:00 [place] 10:30: [id number] 00 Safety cannot be Safety Active 2018-11 Freida left alone 12-02 [place] 10:30: [id number] 00 Safety knowledge/s Safety Resolve 2018-112019-10-16 Freida kill d 12-02 14:28:00 [place] deficit: pt 10:30: [id number] 00 Safety fall risk Safety Resolve 2018-112019-10-10 Freida factor d 12-02 14:55:00 [place] present 10:30: [id number] 00 Safety risk for Safety Resolve 2018-112019-10-10 Freida hospitaliza d 12-02 14:55:00 [place] tion 10:30: [id number] 00 Medication oral med Meds Resolve 2018-112019-10-13 Freida assistance d 12-02 10:23:00 [place] required 10:30: [id number] 00 Musculoskel transfer Musculoske Resolve 2018-112019-10-13 Freida etal assistance letal d 12-02 10:23:00 [place] required 10:30: [id number] 00 Musculoskel requires Musculoske Resolve 2018-112019-10-13 Freida etal human letal d 12-02 10:23:00 Serena assist to 10:30: [id number] leave home 00 Cardio edema Cardiovasc Resolve 2018-112019-11-11 Radha ular d 12-10 12:38:00 [place] 14:55: RN 00 Safety risk for Safety Resolve 2018-112019-10-16 Radha hospitaliza d 12-13 14:28:00 [place] tion 10:23: RN 00 Medication oral med Meds Resolve 2018-112019-11-17 Radha assistance d 12-16 08:35:00 [place] required 14:28: RN 00 Safety knowledge/s Safety Resolve 2018-112019-11-14 Evelyn kill d 12-17 08:30:00 [place] deficit: pt 10:00: [id number] 00 Safety risk for Safety Resolve 2018-112019-10-31 Evelyn hospitaliza d 12-17 14:05:00 [place] tion 10:00: [id number] 00 Social knowledge/s RUSLAN: Active 2018-11 Evelyn Services kill Social 12-17 [place] deficit - Services 10:00: [id number] pt 00 Safety can be left Safety Active 2018-11 Shanelle alone for 12-22 Ernestina only short 12:04: [id number] periods 00 Safety fire risk Safety Resolve [...] 14:05:00 [place] present 14:05: RN 00 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 PT/OT: Active 2018-11 Georges urance rdination Balance/En 01-01 Cory, deficit durance 15:00: PT 00 [id number] Gait/Locomo gait PT/OT: Active 2018-11 Georges tion deficit Gait/Locom 01-01 Cory, problems otion 15:00: PT 00 [id number] Elimination urinary Eliminatio Resolve 2018-112019-11-03 Radha incontinenc [...] hospitaliza d 2- 08:30:00 [place] tion 08:30: [id number] 00 Elimination urinary Eliminatio Resolve 2018-112019-11-21 Radha incontinenc n d - 10:30:00 [place] e 08:35: RN 00 Safety risk for Safety Resolve 2018-112019-11-17 Radha hospitaliza d 01-18 08:35:00 [place] tion 08:35: RN 00 Safety risk for Safety Resolve 2018-112019-11-24 Georges hospitaliza d 01-21 08:45:00 [place] Ray 09:15: PT 00 [id number] Medication oral med Meds Resolve 2018-112019-11-27 Martha assistance d 2 08:35:00 [place] required 10:30: 00 Medication inhalant Meds Resolve 2018-112019-11-27 Martha med d 01-22 08:35:00 [place] assistance 10:30: required 00 Elimination urinary Eliminatio Resolve 2018-112019-11-24 Radha incontinenc n d 08:45:00 [place] e 08:45: RN 00 Nutrition nutritional Nutrition Active 2018-11 Georges restriction Cory, guille 13:15: PT 00 [id number] Safety risk for Safety Unknown 2018-11 Georges hospitaliza [place] 13:15: PT 00 114696-6 Pain frequent Pain Mgmt Active Radha pain [...] Clinician codeine Base Active Unknown Reaction 2019-03 [place] Ingredient Quan Medications Ordered Filled Start Stop [...] mg capsule mg capsule 12-04 Cinthia ELLISON Vital Signs Vital Name Observation [...]
--- OUTSIDE RECORDS SUMMARY | 2019-12-30 09:06 | XMS REPORT | Summary of Care ---
:1945 Author Organization [facility] Address [address] [place] [address] Care Team Providers Name Role Phone Cinthia Winston MD Primary Care Provider Reason for Visit Reason Comments Follow Up Left ankle fracture. Patient wore cam walker for about 2 wks then it started to hurt her, so they got her a support and now patient has no pain in left ankle. Encounter Details Date Type Department Care Team Description 12/09/2019 Office Visit [facility] - Teddy Lee MD Acute left ankle pain [place] [address] [email or web address] (Primary Dx) [address] [facility] [place] [place] [address] [place] [address] [phone] Allergies Active Allergy Reactions Severity Noted Date Comments Codeine GI Reaction 11/05/2019 documented as of this encounter (statuses as of 12/09/2019) Medications Medication Sig Dispensed Refills Start Date [...] as of this encounter (statuses as of 12/09/2019) Active Problems No known active problemsdocumented as of this encounter (statuses as of 2019) Social History Tobacco Use Types Packs/Day Years [...] Sign Reading Time Taken Comments Blood Pressure 161/74 12/09/2019 8:58 AM EST Pulse 69 12/09/2019 8:58 AM EST Temperature - - Respiratory Rate - - Oxygen Saturation - - Inhaled Oxygen Concentration - - Weight 76.7 kg (169 lb) 12/09/2019 8:58 AM EST Height 152.4 cm (5') 12/09/2019 8:58 AM EST Body Mass Index 33.01 12/09/2019 8:58 AM EST documented in this encounter Progress Notes Teddy Lee MD - 12/09/2019 9:00 AM EST Name: Farrah Augustin : 1945 Date of Service: 12/09/2019 Chief Complaint Patient presents with Follow Up Left ankle fracture. Patient wore cam walker for about 2 wks then it started to hurt her, so they got her a support and now patient has no pain in left ankle. Approximately 8 weeks after minimally displaced bimalleolar left ankle fracture. Patient doing well. No pain. Has been transferring on the left leg without difficulty. Has not been tolerating anklesplint so discontinued. Physical exam shows a healthy-appearing woman comfortable in a wheelchair. Alert and oriented. Left ankle slightly swollen. Tremor present which patient says is consistent with her underlying neurologic condition. No tenderness. X-rays of left ankle showed healed fracture. Plan: Increase activities as tolerated. Return here as needed. ICD-9-CM ICD-10-CM 1. Acute left ankle pain 719.47 M25.572 Author: Teddy Lee MD 12/09/2019 09:04 This record contains sections created with voice recognition software. It has been electronically signed. A reasonable attempt at proofreading has been made. Please call with any questions or corrections. documented in this encounter Plan of Treatment Health Maintenance Due Date Last Done Comments MEDICARE ANNUAL WELLNESS VISIT 1945 DTaP/Tdap/Td Vaccines (1 - Tdap) 1956 DEPRESSION SCREENING 1957 HIV SCREENING 1960 HEPATITIS C SCREENING 1985 MAMMOGRAM (SCREENING) 1985 Colonoscopy 1995 ZOSTER IMMUNIZATION SERIES (1 of 1995 2) FALL RISK ASSESSMENT 2010 OSTEOPOROSIS SCREENING 2010 PNEUMOCOCCAL 65+YRS (1 of 2 - 2010 PCV13) INFLUENZA VACCINE (#1) 2019 LIPID DISORDER SCREENING 11/05/2024 11/05/2019 HEPATITIS A IMMUNIZATION SERIES Aged Out No [...] Address Type Group [employer] AETNA xxxxxxxxxx 2010-Present [employer] documented as of this encounter
--- OUTSIDE RECORDS SUMMARY | 2019-12-30 09:06 | XMS REPORT ---
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 Radha (current) (current) [place] use of use of RN non-steroid non-steroid al al anti-inflam anti-inflam matories matories (NSAID) (NSAID) Dependence Dependence Diagnosis Active Radha on on [place] wheelchair wheelchair RN Personal Personal Diagnosis Active Radha history of history of [place] irradiation irradiation RN Pain frequent Pain Mgmt Resolve 2018-112019-10-13 Freida pain d 12-02 10:23:00 [place] 10:30: [id number] 00 Respiratory dyspnea Respirator Active 2018-11 Freida present 12-02 [place] 10:30: [id number] 00 Respiratory oxygen Respirator Active 2018-11 Freida treatments 12-02 [place] in home 10:30: [id number] 00 Respiratory knowledge/s Respirator Active 2018-11 Freida kill y 12-02 [place] deficit: pt 10:30: [id number] 00 Respiratory knowledge/s Respirator Active 2018-11 Freida kill y 12-02 [place] deficit: cg 10:30: [id number] 00 Respiratory lung sounds Respirator Active 2018-11 Freida deficit y 12-02 [place] 10:30: [id number] 00 Respiratory smoker Respirator Resolve 2018-112019-11-21 Freida y d 12-02 10:30:00 [place] 10:30: [id number] 00 Respiratory nebulizer Respirator Active 2018-11 Freida treatment y 12-02 [place] in home 10:30: [id number] 00 Endo/Benjamin anti-coagul Endo/Benjamin Resolve 2018-112019-10-06 Freida ation d 12-02 13:19:00 [place] therapy 10:30: [id number] 00 Sensory impaired Sensory Active 2018-11 Freida hearing 12-02 [place] 10:30: [id number] 00 Integument skin Integument Resolve 2018-112019-10-08 Freida integrity d 12-02 14:40:00 [place] risk 10:30: [id number] 00 Nutrition nutritional Nutrition Resolve 2018-112019-10-13 Freida restriction d 12-02 10:23:00 [place] s 10:30: [id number] 00 Elimination urinary Eliminatio Resolve 2018-112019-10-06 Freida incontinenc n d 12-02 13:19:00 [place] e 10:30: [id number] 00 Neuro confusion Neuro/Emot Active 2018-11 Freida present ion 12-02 [place] 10:30: [id number] 00 Neuro anxiety Neuro/Emot Active 2018-11 Freida present ion 12-02 [place] 10:30: [id number] 00 Neuro depressive Neuro/Emot Active 2018-11 Freida feelings ion 12-02 [place] present 10:30: [id number] 00 Neuro impaired Neuro/Emot Active 2018-11 Freida decision-ma ion 12-02 [place] claritza 10:30: [id number] 00 Activity ADL Activity Active 2018-11 Freida assistance 12-02 [place] required 10:30: [id number] 00 Activity self-care Activity Resolve 2018-112019-10-06 Fre[place] deficit d 12-02 13:19:00 [place] 10:30: [id number] 00 Safety cannot be Safety Active 2018-11 Freida left alone 12-02 [place] 10:30: [id number] 00 Safety knowledge/s Safety Resolve 2018-112019-10-16 Freida kill d 12-02 14:28:00 [place] deficit: pt 10:30: [id number] 00 Safety fall risk Safety Resolve 2018-112019-10-10 Freida factor d 12-02 14:55:00 [place] present 10:30: [id number] 00 Safety risk for Safety Resolve 2018-112019-10-10 Freida hospitaliza d 12-02 14:55:00 [place] tion 10:30: [id number] 00 Medication oral med Meds Resolve 2018-112019-10-13 Freida assistance d 12-02 10:23:00 [place] required 10:30: [id number] 00 Musculoskel transfer Musculoske Resolve 2018-112019-10-13 Freida etal assistance letal d 12-02 10:23:00 [place] required 10:30: [id number] 00 Musculoskel requires Musculoske Resolve 2018-112019-10-13 Freida etal human letal d 12-02 10:23:00 Serena assist to 10:30: [id number] leave home 00 Cardio edema Cardiovasc Resolve 2018-112019-11-11 Radha ular d 12-10 12:38:00 [place] 14:55: RN 00 Safety risk for Safety Resolve 2018-112019-10-16 Radha hospitaliza d 12-13 14:28:00 [place] tion 10:23: RN 00 Medication oral med Meds Resolve 2018-112019-11-17 Radha assistance d 12-16 08:35:00 [place] required 14:28: RN 00 Safety knowledge/s Safety Resolve 2018-112019-11-14 Evelyn kill d 12-17 08:30:00 [place] deficit: pt 10:00: [id number] 00 Safety risk for Safety Resolve 2018-112019-10-31 Evelyn hospitaliza d 12-17 14:05:00 [place] tion 10:00: [id number] 00 Social knowledge/s RUSLAN: Active 2018-11 Evelyn Services kill Social 12-17 [place] deficit - Services 10:00: [id number] pt 00 Safety can be left Safety Active 2018-11 Shanelle alone for 12-22 Ernestina only short 12:04: [id number] periods 00 Safety fire risk Safety Resolve [...] 14:05:00 [place] present 14:05: RN 00 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 PT/OT: Active 2018-11 Georges urance rdination Balance/En 01-01 Cory, deficit durance 15:00: PT 00 309900-4 Gait/Locomo gait PT/OT: Active 2018-11 Georges tion deficit Gait/Locom 01-01 Cory, problems otion 15:00: PT 00 265271-5 Elimination urinary Eliminatio Resolve 2018-112019-11-03 Radha incontinenc n d 2-09 13:20:00 [place] e 13:20: RN 00 Safety fall risk Safety Resolve 2018-112019-11-06 Gisele Snyder factor d 2-10 13:30:00 present 13:43: 55 Safety risk for Safety Resolve 2018-112019-11-06 Gisele Snyder hospitaliza d 2-10 13:30:00 tion 13:43: 55 Elimination urinary Eliminatio Resolve 2018-112019-11-06 Radah incontinenc n d 2-12 13:30:00 [place] e 13:30: RN 00 Safety risk for Safety Resolve 2018-112019-11-14 Evelyn hospitaliza d 2- 08:30:00 [place] tion 08:30: [id number] 00 Elimination urinary Eliminatio Resolve 2018-112019-11-21 Radha incontinenc n d - 10:30:00 [place] e 08:35: RN 00 Safety risk for Safety Resolve 2018-112019-11-17 Radha hospitaliza d 01-18 08:35:00 [place] tion 08:35: RN 00 Safety risk for Safety Resolve 2018-112019-11-24 Georges hospitaliza d 01-21 08:45:00 flor Ray 09:15: PT 00 884254-2 Medication oral med Meds Resolve 2018-112019-11-27 Martha assistance d 2 08:35:00 [place] required 10:30: 00 Medication inhalant Meds Resolve 2018-112019-11-27 Martha med d 01-22 08:35:00 [place] assistance 10:30: required 00 Elimination urinary Eliminatio Resolve 2018-112019-11-24 Radha incontinenc n d 08:45:00 [place] e 08:45: RN 00 Nutrition nutritional Nutrition Active 2018-11 Georges restriction Cory, guille 13:15: PT 00 785356-3 Safety risk for Safety Unknown 2018-11 Georges hospitaliza [place] 13:15: PT 00 287373-1 Pain frequent Pain Mgmt Active Radha pain [...] Clinician codeine Base Active Unknown Reaction 2019-03 [place] Ingredient Quan Medications Ordered Filled Start Stop [...]
--- OUTSIDE RECORDS SUMMARY | 2019-12-30 09:06 | XMS REPORT ---
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 [...] oxygen l oxygen [facility] long term Diagnosis Active Radha (current) (current) [place] use [...] urinary urinary RN (tract) (tract) infections infections long term long term Diagnosis Active Radha (current) (current) [place] use of use of RN non-steroid non-steroid al al anti-inflam anti-inflam matories matories (NSAID) (NSAID) Dependence Dependence Diagnosis Active Radha on on [place] wheelchair wheelchair RN Personal Personal Diagnosis Active Radha history of history of [place] irradiation irradiation RN Pain frequent Pain Mgmt Resolve 2018-112019-10-13 Freida pain d 12-02 10:23:00 [place] 10:30: [id number] 00 Respiratory dyspnea Respirator Active 2018-11 Freida present 12-02 [place] 10:30: [id number] 00 Respiratory oxygen Respirator Active 2018-11 Freida treatments 12-02 [place] in home 10:30: [id number] 00 Respiratory knowledge/s Respirator Active 2018-11 Freida kill y 12-02 [place] deficit: pt 10:30: [id number] 00 Respiratory knowledge/s Respirator Active 2018-11 Freida kill y 12-02 [place] deficit: cg 10:30: [id number] 00 Respiratory lung sounds Respirator Active 2018-11 Freida deficit y 12-02 [place] 10:30: [id number] 00 Respiratory smoker Respirator Resolve 2018-112019-11-21 Freida y d 12-02 10:30:00 [place] 10:30: [id number] 00 Respiratory nebulizer Respirator Active 2018-11 Freida treatment y 12-02 [place] in home 10:30: [id number] 00 Endo/Benjamin anti-coagul Endo/Benjamin Resolve 2018-112019-10-06 Freida ation d 12-02 13:19:00 [place] therapy 10:30: [id number] 00 Sensory impaired Sensory Active 2018-11 Freida hearing 12-02 [place] 10:30: [id number] 00 Integument skin Integument Resolve 2018-112019-10-08 Freida integrity d 12-02 14:40:00 [place] risk 10:30: [id number] 00 Nutrition nutritional Nutrition Resolve 2018-112019-10-13 Freida restriction d 12-02 10:23:00 [place] s 10:30: [id number] 00 Elimination urinary Eliminatio Resolve 2018-112019-10-06 Freida incontinenc n d 12-02 13:19:00 [place] e 10:30: [id number] 00 Neuro confusion Neuro/Emot Active 2018-11 Freida present ion 12-02 [place] 10:30: [id number] 00 Neuro anxiety Neuro/Emot Active 2018-11 Freida present ion 12-02 [place] 10:30: [id number] 00 Neuro depressive Neuro/Emot Active 2018-11 Freida feelings ion 12-02 [place] present 10:30: [id number] 00 Neuro impaired Neuro/Emot Active 2018-11 Freida decision-ma ion 12-02 [place] claritza 10:30: [id number] 00 Activity ADL Activity Active 2018-11 Freida assistance 12-02 [place] required 10:30: [id number] 00 Activity self-care Activity Resolve 2018-112019-10-06 Freida deficit d 12-02 13:19:00 [place] 10:30: [id number] 00 Safety cannot be Safety Active 2018-11 Freida left alone 12-02 [place] 10:30: [id number] 00 Safety knowledge/s Safety Resolve 2018-112019-10-16 Freida kill d 12-02 14:28:00 [place] deficit: pt 10:30: [id number] 00 Safety fall risk Safety Resolve 2018-112019-10-10 Freida factor d 12-02 14:55:00 [place] present 10:30: [id number] 00 Safety risk for Safety Resolve 2018-112019-10-10 Freida hospitaliza d 12-02 14:55:00 [place] tion 10:30: [id number] 00 Medication oral med Meds Resolve 2018-112019-10-13 Freida assistance d 12-02 10:23:00 [place] required 10:30: [id number] 00 Musculoskel transfer Musculoske Resolve 2018-112019-10-13 Freida etal assistance letal d 12-02 10:23:00 [place] required 10:30: [id number] 00 Musculoskel requires Musculoske Resolve 2018-112019-10-13 Freida etal human letal d 12-02 10:23:00 Serena assist to 10:30: [id number] leave home 00 Cardio edema Cardiovasc Resolve 2018-112019-11-11 Radha ular d 12-10 12:38:00 [place] 14:55: RN 00 Safety risk for Safety Resolve 2018-112019-10-16 Radha hospitaliza d 12-13 14:28:00 [place] tion 10:23: RN 00 Medication oral med Meds Resolve 2018-112019-11-17 Radha assistance d 12-16 08:35:00 [place] required 14:28: RN 00 Safety knowledge/s Safety Resolve 2018-112019-11-14 Evelyn kill d 12-17 08:30:00 [place] deficit: pt 10:00: [id number] 00 Safety risk for Safety Resolve 2018-112019-10-31 Evelyn hospitaliza d 12-17 14:05:00 [place] tion 10:00: [id number] 00 Social knowledge/s RUSLAN: Active 2018-11 Evelyn Services kill Social 12-17 [place] deficit - Services 10:00: [id number] pt 00 Safety can be left Safety Active 2018-11 Shanelle alone for 12-22 Ernestina only short 12:04: [id number] periods 00 Safety fire risk Safety Resolve [...] [place] present 14:05: RN 00 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 PT/OT: Active 2018-11 Georges urance rdination Balance/En 01-01 Cory, deficit durance 15:00: PT 00 011903-6 Gait/Locomo gait PT/OT: Active 2018-11 Georges tion deficit Gait/Locom 01-01 Cory, problems otion 15:00: PT 00 212862-1 Elimination urinary Eliminatio Resolve 2018-112019-11-03 Radha incontinenc [...] hospitaliza d 2- 08:30:00 [place] tion 08:30: [id number] 00 Elimination urinary Eliminatio Resolve 2018-112019-11-21 Radha incontinenc n d - 10:30:00 [place] e 08:35: RN 00 Safety risk for Safety Resolve 2018-112019-11-17 Radha hospitaliza d 01-18 08:35:00 [place] tion 08:35: RN 00 Safety risk for Safety Resolve 2018-112019-11-24 Georges hospitaliza d 01-21 08:45:00 flor Ray 09:15: PT 00 985030-1 Medication oral med Meds Resolve 2018-112019-11-27 Martha assistance d 2 08:35:00 [place] required 10:30: 00 Medication inhalant Meds Resolve 2018-112019-11-27 Martha med d 01-22 08:35:00 [place] assistance 10:30: required 00 Elimination urinary Eliminatio Resolve 2018-112019-11-24 Radha incontinenc n d 08:45:00 [place] e 08:45: RN 00 Nutrition nutritional Nutrition Active 2018-11 Georges restriction Cory, guille 13:15: PT 00 559691-0 Safety risk for Safety Unknown 2018-11 Georges hospitaliza [place] 13:15: PT 00 249947-9 Pain frequent Pain Mgmt Active Radha pain [...] Clinician codeine Base Active Unknown Reaction 2019-03 [place] Ingredient Quan Medications Ordered Filled Start Stop [...]
--- NOTE | 2019-12-30 09:10 | ED ---
HPI Chest Pain - HPI Summary HPI Summary: The patient is a 74 year-old female arriving by ambulance to [facility] with a chief complaint of chest pain and shortness of breath onset around 0730. She reports that she began experiencing 10/10 chest pain while doing a nebulizer treatment which she takes QID for history of asthma and COPD. The chest pain did not radiate anywhere. In the ambulance, she had 324mg PO Aspirin and one nitroglycerin, improving the patients chest pain to 2/10 in severity. She additionally had Morphine this morning at 0615 and Ibuprofen at 0800. EMS notes that she sounded wet, so she was placed on a CPAP machine, which helped her difficulty breathing with O2 sats improving from 90% to 98%. She endorses edema in the legs but is not on Lasix and doesnt have a history of CHF. She recently had the flu in the last week. She wears 2L O2 at night. Past medical history significant for coronary artery disease, hypercholesterolemia, hypertension, cardiac stent, myocardial ischemia, colon cancer. Current smoker, no EtOH, no substance use. Medications reviewed. Allergies noted. - History of Current Complaint Hx Obtained From: Patient, EMS Onset/Duration: Started Hours Ago Time of Onset: 07:30 Timing: Constant Initial Severity: Severe Current Severity: Mild Pain Intensity: 2 Pain Scale Used: 0-10 Numeric Chest Pain Location: Diffuse Chest Pain Radiates: No Character: Sharp/Stabbing Aggravating Factor(s): Nothing Alleviating Factor(s): NTG 123 - 1, EMS Tx - 324mg ASA Associated Signs and Symptoms: Positive: Chest Pain, Shortness of Breath, Edema - Additional Pertinent History Primary Care Physician: STEVE - Allergy/Home Medications Allergies/Adverse Reactions: Allergies Allergy/AdvReac Type Severity Reaction Status Date / Time codeine Allergy Nausea Verified 12/30/19 09:08 Home Medications: Home Medications Albuterol/Ipratropium NEB.MADINA* [Duoneb (Albuterol 2.5 MG/Ipratropium 0.5 MG)] 1 neb INH .Q2-4H PRN 12/30/19 [History Confirmed 12/30/19] Dextromethorphn/Acetaminoph/Cp [Coricidin Hbp Flu] 1 tab PO BEDTIME 12/30/19 [ History Confirmed 12/30/19] Dextromethorphn/Acetaminoph/Cp [Coricidin Hbp Max Strength Flu] 2 tab PO BID 03/15 [History Confirmed 12/30/19] Guaifenesin/Phenylephrine HCl [Th Chest Congestion Relie] 1 tab PO BID 12/30/19 [History Confirmed 12/30/19] guaiFENesin [Guaifenesin] 400 mg PO DAILY 12/30/19 [History Confirmed 12/30/19] PMH/Surg Hx/FS Hx/Imm Hx Endocrine/Hematology History: Denies: Hx Anticoagulant Therapy, Hx Blood Disorders, Hx Blood Transfusions, Hx Bone Marrow Disease, Hx Diabetes, Hx Systemic Lupus Erythematosus, Hx Sickle Cell Disease, Hx Thyroid Disease, Hx Anemia, Other Endocrine/Hematological Disorders Cardiovascular History: Reports: Hx Coronary Artery Disease, Hx Hypercholesterolemia, Hx Hypertension, Other Cardiovascular Problems/Disorders - heart cath and stent Denies: Hx Aneurysm, Hx Angina, Hx Angioplasty, Hx Auto Implanted Cardiovert Defib, Hx Cardiac Arrest, Hx Cardiomegaly, Hx Congenital Heart Disease, Hx Congestive Heart Failure, Hx Deep Vein Thrombosis, Hx Embolism Respiratory History: Reports: Hx Asthma, Hx Chronic Obstructive Pulmonary Disease (COPD) Denies: Hx Bronchopulmonary Dysplasia, Hx Chronic Bronchitis, Hx Cystic Fibrosis, Hx Lung Cancer, Hx Pleural Effusion, Hx Pneumonia, Hx Pulmonary Edema , Hx Pulmonary Embolism, Hx Seasonal Allergies, Hx Sleep Apnea, Other Respiratory Problems/Disorders GI History: Reports: Other GI Disorders - hx colon cancer with resection Denies: Hx Cirrhosis, Hx Crohn's Disease, Hx Diverticulosis, Hx Gall Bladder Disease, Hx Gastroesophageal Reflux Disease, Hx Gastrointestinal Bleed, Hx Hiatal Hernia, Hx Irritable Bowel, Hx Jaundice, Hx Obstructive Bowel, Hx Ileostomy, Hx Pyloric Stenosis, Hx Ulcer History: Reports: Other Problems/Disorders - kidney cancer- left kidney removed Denies: Hx Acute Renal Failure, Hx Benign Prostatic Hyperplasia, Hx Chronic Renal Failure, Hx Dialysis, Hx Kidney Infection, Hx Kidney Stones Musculoskeletal History: Reports: Hx Arthritis, Hx Back Problems, Other Musculoskeletal History - implanted baclofen pump for pain, LLQ Sensory History: Reports: Hx Cataracts - both eyes Denies: Hx Contacts or Glasses, Hx Eye Injury, Hx Eye Prosthesis, Hx Glaucoma , Hx Legally Blind, Hx Macular Degeneration, Hx Vision Problem, Hx Deafness, Hx Hearing Aid, Hx Hearing Problem, Other Sensory Impairments Opthamlomology History: Reports: Hx Cataracts - both eyes Denies: Hx Contacts or Glasses, Hx Eye Injury, Hx Eye Prosthesis, Hx Glaucoma , Hx Legally Blind, Hx Macular Degeneration, Hx Vision Problem, Other Sensory Impairments Neurological History: Reports: Other Neuro Impairments/Disorders - lateral sclerosis Denies: Hx Dementia, Hx Developmental Delay, Hx Headaches, Hx Migraine, Hx Nerve Disease, Hx Seizures, Hx Spinal Cord Injury, Hx Transient Ischemic Attacks (TIA) Psychiatric History: Reports: Hx Anxiety, Hx Depression Denies: Hx Attention Deficit Hyperactivity Disorder, Hx Autism, Hx Eating Disorder, Hx Oppositional [place] Disorder, Hx Panic Disorder, Hx Post Traumatic Stress Disorder, Hx Inpatient Treatment, Hx Community Mental Health Tx , Hx Schizophrenia, Hx Bipolar Disorder, Hx Suicide Attempt, Hx of Violent Episodes Against Others, Other Psychiatric Issues/Disorders - Cancer History Cancer Type, Location and Year: colon CA. right breast CA. skin CA Hx Radiation Therapy: Yes - Surgical History Surgical History: Yes Surgery Procedure, Year, and Place: Partial Hysterectomy-still has uterus 1996, Disc Surgery-lower spine 1980, Cyst removal-rectum 1981, Baclofen pump implant 1996, Carpal tunnel 1996, Bladder repair 1998, Carpal tunnel and ulnar nerve in arm 1998, Baclofen pump replacement 2001, Cataract - left eye 2003, Colon resection for cancer 2006, Cataract - right eye 2007, Lumpectomy - right breast for CA 2010, Heart catheterization and stent impant 2010, Baclofen pump replacement 2013, Left kidney removal for cancer, Left Arm Ulnar Nerve 2014, Skin Cancer - Radiation treatment 2017. Hx Anesthesia Reactions: No Infectious Disease History: Denies: Hx Clostridium Difficile, Hx Hepatitis, Hx Human Immunodeficiency Virus (HIV), Hx of Known/Suspected MRSA, Hx Shingles, Hx Tuberculosis, Hx Known/ Suspected VRE, Hx Known/Suspected VRSA, History Other Infectious Disease, Traveled Outside the [place] in Last 30 Days - Family History Known Family History: Positive: Other - positive: father committed suicide, father had CA - Social History Alcohol Use: None Hx Substance Use: No Substance Use Type: Reports: None Hx Tobacco Use: Yes Smoking Status (MU): Current Every Day Smoker Type: Cigarettes Amount Used/How Often: 1 PPD Have You Smoked in the Last Year: Yes Review of Systems Positive: Chest Pain Positive: Shortness Of Breath Positive: Edema - lower extremities All Other Systems Reviewed And Are Negative: Yes Physical Exam - Summary Physical Exam Summary: Constitutional: Well-developed, Well-nourished, Alert. (-) Distressed Skin: Warm, Dry HENT: Normocephalic; Atraumatic Eyes: Conjunctiva normal Neck: Musculoskeletal ROM normal neck. (-) JVD, (-) Stridor, (-) Tracheal deviation Cardio: Rhythm regular, rate normal, Heart sounds normal; Intact distal pulses; The pedal pulses are 2+ and symmetric. Radial pulses are 2+ and symmetric. (-) Murmur Pulmonary/Chest wall: Effort normal. (-) Respiratory distress, (+) Bilateral crackles/Wheezes, (-) Rales Abd: Soft, (-) tenderness, (-) Distension, (-) Guarding, (-) Rebound Musculoskeletal: (-) Edema Lymph: (-) Cervical adenopathy Neuro: Alert, Oriented x3 Psych: Mood and affect Normal Triage Information Reviewed: Yes Vital Signs Reviewed: Yes Procedures - Sedation Patient Received Moderate/Deep Sedation with Procedure: No Diagnostics - Laboratory Result Diagrams: 12/30/19 09:18 12/30/19 09:18 Lab Statement: Any lab studies that have been ordered have been reviewed, and results considered in the medical decision making process. - Radiology CXR Radiology Interpretation Completed By: Radiologist Summary of Radiographic Findings: Impression: Low lung volumes. No active cardiopulmonary disease. ED physician has reviewed this report. - EKG 0906 Cardiac Rate: NL - 97 BPM EKG Rhythm: Sinus Rhythm Summary of EKG Findings: EKG at 0906 reveals sinus rhythm at rate of 97 BPM, T wave inversions in V2-V3. Dr. Silverman has reviewed and interpreted this EKG. Re-Evaluation - Re-Evaluation First Eval Re-Evaluation Time: 15:00 Change: Improved Comment: We discussed results and plan for discharge at this point since the patient would prefer to go home, and she is feeling much better since arriving to the ED. Chest Pain Course/Dx - Course Course Of Treatment: Patient is a 74 year-old female presenting with sudden onset chest pain that doesnt radiate beginning at 0730 as a severe pain that improved with EMS administration of full dose of ASA and one NTG as well as self -administration of Morphine and Ibuprofen this morning. She was placed on CPAP by EMS to improved difficulty of breathing she was experiencing. She endorses edematous lower extremities without Lasix use or history of CHF. Past medical history significant for COPD, asthma, HLD, HTN, cardiac stent, myocardial ischemia. Current smoker. Physical exam is significant for bilateral crackles and wheezing. Patient placed on cardiac specialist, IV access obtained. Patient administered fluids. Respiratory placed patient on BiPAP. Blood work obtained, revealing WBCs of 16.4, platelets of 490, and absolute neutrophils of 13.6. First troponin of 0.01. EKG at 0906 reveals sinus rhythm at rate of 97 BPM, T wave inversions in V2-V3. CXR impression reveals low lung volumes but is otherwise normal. Patient also administered Solu-Medrol, and Duoneb x2 with improvement. Second troponin of 0.01. She is safe for discharge at this time. Patient is agreeable with this plan. - Diagnoses Provider Diagnoses: COPD (chronic obstructive pulmonary disease) Discharge ED - Sign-Out/Discharge Documenting (check all that apply): Patient Departure - Patient will be discharged home. - Discharge Plan Condition: Stable Disposition: HOME Patient Education Materials: COPD (Chronic Obstructive Pulmonary Disease) (DC) Referrals: Cinthia Winston MD [Primary Care Provider] - 2 Days Additional Instructions: Follow up with your primary care provider in 1-2 days. Return to the emergency department for any new or worsening symptoms. - Billing Disposition and Condition Condition: STABLE Disposition: Home - Attestation Statements Document Initiated by Janina: Yes Documenting Scribe: Lucia Mendoza Provider For Whom Janina is Documenting (Include Credential): Dr. Yefri Silverman DO Scribe Attestation: Lucia Gauthier scribed for Dr. Yefri Silverman DO on 12/30/19 at 1511. Scribe Documentation Reviewed: Yes Provider Attestation: The documentation as recorded by the Lucia ochoa accurately reflects the service I personally performed and the decisions made by me, Dr. Yefri Silverman DO Status of [place] Document: Viewed
[2019-12-30 09:30] LABS: ABS Basophils 0.2 10^3/ul (0-0.2); ABS Eosinophils 0.4 10^3/ul (0-0.6); ABS Lymphocytes 1.3 10^3/ul (1.0-4.8); ABS Neutrophils 13.6 10^3/ul (1.5-7.7); Eosinophil % 2.2 %; Hematocrit 39 % (35-47); Hemoglobin 12.3 g/dL (12.0-16.0); Lymphocyte % 7.7 %; Mean Corpuscular HGB Conc 32 g/dL (31-36); Mean Corpuscular Hemoglobin 28 pg (27-31); Mean Corpuscular Volume 88 fL (80-97); Mean Platelet Volume 7.2 fL (7.4-10.4); Platelet Count 490 10^3/uL (150-450); Red Blood Count 4.39 10^6 /uL (3.70-4.87); Red Cell Distribution Width 17 % (10-15); White Blood Count 16.4 10^3/uL (3.5-10.8)
[2019-12-30 09:47] LABS: Albumin 3.8 g/dL (3.2-5.2); Albumin/Globulin Ratio 1.2 (1-3); BUN/Creatinine Ratio 18.5 (8-20); Calcium 8.5 mg/dL (8.6-10.3); EGFR African American 72.2 (>60); EGFR Non-African American 59.7 (>60); Globulin 3.3 g/dL (2-4); Potassium 4.5 mmol/L (3.5-5.0); Total Bilirubin 0.4 mg/dL (0.2-1.0); Total Protein 7.1 g/dL (6.4-8.9)
[2019-12-30 09:48] LABS: Troponin I 0.01 ng/mL (<0.03)
[2019-12-30] MEDS ORDERED: NS 0.9% 1000 ML** 1,000 ML IV ONE (11:25)
[2019-12-30] MEDS ORDERED: methylPREDNISolone 125 MG* 2 ML VIAL IV ONE (11:25)
[2019-12-30] MEDS ORDERED: Albuterol/Ipratropium NEB.SOL* Albuterol 2.5 MG/Ipratropium 0.5 MG 3 ML INH ONE ×2 (11:25→13:15)
[2019-12-30 14:54] VITALS: BP 136/78
== END 2019-12-30 15:01 | disposition home or self-care (01) ==
LOC: ED 08:57
DX: J44.9 Chronic obstructive pulmonary disease, unspecified (principal); I25.10 Atherosclerotic heart disease of native coronary artery without angina pectoris; E78.00 Pure hypercholesterolemia, unspecified; I10 Essential (primary) hypertension; F41.9 Anxiety disorder, unspecified; F17.210 Nicotine dependence, cigarettes, uncomplicated; Z90.711 Acquired absence of uterus with remaining cervical stump; Z79.899 Other long term (current) drug therapy; Z88.5 Allergy status to narcotic agent; Z85.3 Personal history of malignant neoplasm of breast; Z85.038 Personal history of other malignant neoplasm of large intestine; Z85.828 Personal history of other malignant neoplasm of skin
CPT/HCPCS: 36415; 71045; 80053; 83605; 83880; 84484; 85025; 93005; 96360; 96361; 99284; A9270-GY; J2930